=== PATIENT | female | born 1975 | race Caucasian/White ===

== ENCOUNTER 2020-01-30 14:20 | Emergency (ER) | payer BC, SELFPAY ==
--- NOTE | ~2020-01-30 | CT_ITS ---
EXAMINATION: CTA chest PE abdomen pel DATE: 01/30/2020 18:23 INDICATION: Chest tightness and swelling at the neck and back. Epigastric pain. TECHNIQUE: Computed tomography (CT) pulmonary angiogram of the chest was performed with 100 mL Omnipa que-350 intravenous contrast. Additional 3D reconstructions utilizing coronal maximum intensity proje ction (MIP) were performed. CT of the abdomen and pelvis was performed with intravenous contrast util izing the same contrast bolus following a short delay. Automated exposure control and iterative recon struction technique were employed. The dose-length product was 1584.70 mGy-cm. COMPARISON: CT abdomen and pelvis dated 10/17/2014 FINDINGS: Chest: Excellent contrast opacification of the pulmonary arteries. There is mild streak artifact from dense contrast in the superior vena cava and right atrium. Mild scattered respiratory motion artifact which does not significantly limit evaluation. No pulmonary embolism. Calcified nodule in the left lower l obe along with calcified left hilar and mediastinal lymph nodes consistent with old granulomatous dis ease. No pneumonia, pulmonary edema, pleural effusion or pneumothorax. Heart size is normal. No peric ardial effusion. Dual-lead cardiac pacemaker with lead tips at the right atrial appendage and near th e apex of the right ventricle. Thoracic aorta is normal in caliber with no dissection. No pathologica lly enlarged thoracic lymphadenopathy. There are multiple scattered sclerotic bone lesions the majori ty small and dense most likely representing bone islands with a larger sclerotic lesion at T1 with sp iculated margins also favoring bone island. Lucent centrally fat attenuation hemangioma at T4. Abdomen/pelvis: Gallbladder is surgically absent. Multiple small splenic calcifications consistent with old granuloma tous disease. Liver, pancreas, bilateral adrenal glands and kidneys are normal. No abnormal bowel wal l thickening or obstruction. Normal appendix. Bladder is normal. There appear to be 2 separate uterin e moieties without a fundal cleft most consistent with septated uterus. Partially 1 cm subtle enhanci ng fibroid at the left anterior side of the uterine body. There are couple low-attenuation likely cys ts/follicles in the left ovary. Again seen are couple likely tubal ligation clips 1 remains unchanged along the right broad ligament. The second previously left-sided clip has displaced in the interval now seen along side the RIGHT ovary. Bladder is normal. No free intraperitoneal gas or fluid. No path ologically enlarged abdominal or pelvic lymphadenopathy. No significant interval change in multiple s cattered small sclerotic likely bone islands. IMPRESSION: 1. No pulmonary embolism or other acute cardiopulmonary disease. 2. No acute intra-abdominal/pelvic process. 3. Fibroid and septated ureters with likely tubal ligation clips, the clip on the left which appears to have displaced since the prior study. 4. Sclerotic lesion at T1, likely a larger bone island with spiculated margins. If however there has been history of prior malignancy would consider bone scan for further evaluation. Reviewed, dictated and finalized at location A. IMPRESSION: 1. No pulmonary embolism or other acute cardiopulmonary disease. 2. No acute intra-abdominal/pelvic process. 3. Fibroid and septated ureters with likely tubal ligation clips, the clip on t he left which appears to have displaced since the prior study. 4. Sclerotic lesion at T1, likely a larger bone island with spiculated margins. If however there has been history of prior malignancy would consider bone scan for further evaluation.
--- NOTE | ~2020-01-30 | XR_ITS ---
EXAMINATION: XR chest 2V DATE: 01/30/2020 17:19 INDICATION: Dyspnea on exertion. Chest and back pain. Swelling of the extremities. TECHNIQUE: PA and lateral views of the chest were obtained. COMPARISON: None FINDINGS: Small lung volumes. Calcified nodule in the left lower lung zone consistent with old granulomatous di sease. No focal airspace opacities, pulmonary edema, pleural effusion or pneumothorax. The cardiomedi astinal silhouette is normal. Dual lead pacemaker seen with leads projecting over the expected locati ons of the right atrium and right ventricle. Mild to moderate thoracic and upper lumbar spondylosi s. IMPRESSION: 1. Small lung volumes without acute cardiopulmonary disease. Reviewed, dictated and finalized at location A.
[2020-01-30 14:22] VITALS: BP 142/92; PULSE 107; RESP 20; TEMP 36.4; O2SAT 97
[2020-01-30 16:04] VITALS: BP 135/94; PULSE 84; RESP 18; O2SAT 98
--- NOTE | 2020-01-30 16:48 | ECG_ITS ---
Measurements Intervals [place] Rate: 86 P: 43 HI: 161 QRS: 20 QRSD: 88 T: 12 QT: 374 QTc: 448 Interpretive Statements SINUS RHYTHM POSSIBLE LEFT ATRIAL ENLARGEMENT BORDERLINE T WAVE ABNORMALITY- INFERIOR LEADS BASELINE ARTIFACT- I, II, III, AVR, AVL, AVF, V1 BORDERLINE ECG Electronically Signed On 01-31-2020 7:07:09 CDT by Fred Mccrary D.O.
[2020-01-30 17:14] LABS: Basophils Absolute Auto 0.1 K/mm3 (0.0-0.1); Basophils Percent Auto 0.4 % (0.2-1.2); Eosinophils Absolute Auto 0.2 K/mm3 (0-0.3); Eosinophils Percent Auto 1.3 % (0-4.4); Hematocrit 42.7 % (37.0-47.0); Hemoglobin 14.1 g/dL (12.0-15.0); Immature Granulocyte Absolute 0.06 K/mm3 (0.00-0.031); Immature Granulocyte Percent A 0.5 % (0-0.5); Lymphocytes Absolute Auto 2.39 K/mm3 (0.9-3.2); Lymphocytes Percent Auto 18.7 % (18.3-44.2); Mean Corpuscular Hemoglobin 31.1 pg (26-34); Mean Corpuscular Volume 94.3 fl (80-100); Mean Platelet Volume 9.8 fl (7.4-10.4); Monocytes Absolute Auto 0.9 K/mm3 (0.1-0.6); Monocytes Percent Auto 7.4 % (2.6-8.5); Neutrophils Absolute Auto 9.2 K/mm3 (1.3-6.7); Neutrophils Percent Auto 71.7 % (45.5-73.1); Platelet Count Result 255 k/mm3 (150-375); Red Blood Count 4.53 M/mm3 (4.2-5.4); Red Cell Distribution Width 12.9 % (11.5-14.5); White Blood Count 12.8 K/mm3 (4.5-10.0)
[2020-01-30 17:16] LABS: Add Urine Microscopic? NO; Appearance Urine Clear (Clear); Bilirubin Urine Negative (Negative); Blood Urine Negative (Negative); Color Urine Yellow (Yellow); Glucose Urine UA Negative (Negative); Ketones Urine Negative (Negative); Leukocyte Esterase Ur Negative LEU/UL (Negative); Nitrate Urine Negative (Negative); Protein Urine Negative (Negative); Specific Grav Ur 1.018 (1.001-1.035); Urobilinogen Urine Negative mg/dL (<2.0)
[2020-01-30 17:18] LABS: Urine Pregnancy Test Negative
[2020-01-30 17:19] LABS: Pregnancy On Board Control Positive; Specific Gravity Ur 1.019 (1.010-1.035)
[2020-01-30] MEDS: SODIUM CHLORIDE 0.9% IV 1,000 ML 999 ML IV CONT (17:19)
[2020-01-30] MEDS: ONDANSETRON INJ 4 MG/2 ML VIAL IV PUSH (17:20)
[2020-01-30 17:21] LABS: INR 0.9; Prothrombin Time 11.6 Seconds (11.1-14.7)
[2020-01-30 17:22] LABS: Partial Thromboplastin Time 28.1 SECONDS (22.3-36.8)
[2020-01-30] MEDS: MORPHINE SULFATE 2 MG/ML INJ IV PUSH ×2 (17:22→18:35)
[2020-01-30 17:23] LABS: Alanine Aminotransferase 46 U/L (4-35); Albumin Level 4.2 g/dL (3.5-5.1); Alkaline Phosphatase 95 U/L (38-126); Aspartate Amino Transferase 36 U/L (14-36); Bilirubin,Total 0.4 mg/dL (0.2-1.3); Blood Urea Nitrogen 17 mg/dL (7-17); Carbon Dioxide 28 mmol/L (22-30); Chloride 100 mmol/L (98-107); Estimated CRCL calculation 88 ml/min; Estimated Glomerular Filt Rate > 60; Glucose 91 mg/dL (65-105); Lipase 72 U/L (23-300); Potassium 3.6 mmol/L (3.4-5.0); Sodium 136 mmol/L (137-145)
[2020-01-30 17:24] LABS: D Dimer 0.54 ug/mL (<0.48)
[2020-01-30 17:35] LABS: Troponin I < 0.012 ng/mL (0.000-0.034)
--- NOTE | 2020-01-30 18:07 | ED.GENADULT ---
HPI - General Adult General Chief complaint: Back Pain/Injury Stated complaint: back and head pain, swelling in neck. Time Seen by Provider: 01/30/20 15:29 History of Present Illness HPI narrative: Patient presents for evaluation of multiple complaints. She indicates she has experienced cold sweats and epigastric tightness for the last week. She is further experience right upper quadrant pain, right knee swelling and anterior neck swelling. She states 2 months ago she was seen a [facility] for fever, abdominal pain, back pain and neck pain. She was diagnosed with pneumonia. She was given a prescription for antibiotics and steroids and felt improvement in her symptoms. She subsequently experienced recurrence of her symptoms and was evaluated again at [facility]. She was given a second round of antibiotics and noted improvement in her symptoms thereafter. She indicates her current abdominal pain occurs multiple times per day, rated 9 on a scale of 1-10, worse with movement. She has experienced nausea without vomiting, dizziness, urinary frequency without other urinary complaints. Last menstrual period was 2 weeks ago. Surgical history positive for tubal ligation, cholecystectomy and pacemaker placement. Related Data Home Medications Medication Instructions Recorded Confirmed bupropion HCl 150 mg PO BID 01/30/20 duloxetine 60 mg PO DAILY 01/30/20 metoprolol tartrate 12.5 mg PO BID 01/30/20 Allergies Allergy/AdvReac Type Severity Reaction Status Date / Time Penicillins Allergy Intermediate Rash Verified 01/30/20 15:58 Review of Systems Review of Systems: Narrative: CONSTITUTIONAL: Denies fever, chills. Reports cold sweats EYES: Denies visual changes, redness, or discharge. ENT: Denies rhinorrhea, congestion, sore throat, or otalgia. Reports anterior neck swelling. CARDIOVASCULAR: Denies chest pain, palpitations, or edema. RESPIRATORY: Denies cough. Reports [place]AL[place] GASTROINTESTINAL: Reports abdominal pain and nausea. Denies vomiting, or diarrhea. GENITOURINARY: Denies dysuria or hematuria. Reports urinary frequency. SKIN: Denies rash or itching. MUSCULOSKELETAL: Denies back pain, joint pain, or myalgia. Reports swelling in the right knee NEUROLOGIC: Reports dizziness. Denies headache, numbness, or weakness. PSYCHIATRIC: Denies anxiety or depression. [facility] Past Medical History Medical History (Updated 01/30/20 @ 18:12 by Lexx Jefferson, [employer], ) Anxiety Hypertension Vasovagal syncope Surgical History Surgical History (Updated 01/30/20 @ 18:13 by Lexx Jefferson, [facility], ) History of cholecystectomy History of tubal ligation S/P placement of cardiac pacemaker Social History Social History (Updated 01/30/20 @ 18:13 by Lexx Jefferson [facility], ) Substance use: never Living arrangements: with family Gender identity (if verbalized by the patient): Female Exam Narrative: Exam Narrative: GENERAL: Well-appearing, well-nourished, and in no acute distress, but visibly uncomfortable HEAD: Normocephalic, atraumatic. EYES: PERRLA and EOMI. ENT: Nares clear, no rhinorrhea or epistaxis. Mucous membranes moist. Oropharynx without tonsillar hypertrophy exudate or other lesions. Bilateral TMs pearly patricia nonbulging NECK: Supple. No adenopathy or masses. No carotid bruits or JVD CHEST: Clear to auscultation. No respiratory distress. No wheezes rales or rhonchi HEART: Regular rate and rhythm. No murmur heard. Normal peripheral pulses. ABDOMEN: Soft, nondistended, normal active bowel sounds. Right upper quadrant and lower quadrant tenderness. Right CVA tenderness EXTREMITIES: Normal range of motion. No edema. SKIN: Warm, dry, no rash. NEURO: No focal deficits. Alert and oriented x3. PSYCH: Normal mood and affect. Course Vital Signs Vital signs: Vital Signs Temperature 36.4 C L 01/30/20 14:22 Pulse Rate 107 H 01/30/20 14:22 Respiratory Rate 20 01/30/20 14:22 Bloo
== END 2020-01-30 20:07 | disposition home or self-care (01) ==
PROVIDERS: Emergency Provider Nurse Practitioner; PCP Nurse Practitioner Family
DX: R10.11 Right upper quadrant pain (principal); M89.9 Disorder of bone, unspecified; F41.9 Anxiety disorder, unspecified; I10 Essential (primary) hypertension; Z95.0 Presence of cardiac pacemaker; R94.31 Abnormal electrocardiogram [ECG] [EKG]
CPT/HCPCS: 36415; 71046; 71275; 74177; 80053; 81003; 81025; 83690; 84484; 85025; 85380; 85610; 85730; 93005; 96361; 96374; 96375; 96376; 99284; J2270; J2405; J7030; Q9967

== ENCOUNTER 2020-02-18 14:38 | Emergency (ER) | payer BC, SELFPAY ==
--- NOTE | ~2020-02-18 | XR_ITS ---
XR foot LT min 3V DATE: 02/18/2020 14:54 INDICATION: Dorsal foot pain for 3 days. No known injury. TECHNIQUE: 4 views COMPARISON: None FINDINGS: Plantar and posterior calcaneal enthesopathy. There is hypertrophic osteoarthritic change at the tarsometatarsal joints, with dorsal spurring in pa rticular at the first tarsometatarsal joint. No fracture or dislocation, periosteal reaction or bone destruction. IMPRESSION: Plantar and posterior calcaneal enthesopathy Osteoarthritic changes at the tarsometatarsal joints, especially at the first Reviewed, dictated and finalized at location A.
[2020-02-18 14:41] VITALS: BP 153/98; PULSE 100; RESP 20; TEMP 36.6; O2SAT 100
--- NOTE | 2020-02-18 15:08 | ED.GENADULT ---
HPI - General Adult General Chief complaint: Extremity Injury, Lower Stated complaint: left foot pain Time Seen by Provider: 02/18/20 14:43 Source: patient Mode of arrival: ambulatory Limitations: no limitations History of Present Illness HPI narrative: Patient is a 44-year-old female who presents to emergency department for evaluation of pain to the dorsal surface of the left foot just proximal of the left great toe noting aching pain worse with activity and movement denies injury trauma or similar occurrence has not taken anything for her symptoms. Denies radicular symptoms or paresthesias Related Data Home Medications Medication Instructions Recorded Confirmed bupropion HCl 150 mg PO BID 01/30/20 02/18/20 duloxetine 60 mg PO DAILY 01/30/20 02/18/20 metoprolol tartrate 12.5 mg PO BID 01/30/20 02/18/20 cyclobenzaprine 5 mg PO DAILY 02/18/20 02/18/20 gabapentin 300 mg PO DAILY 02/18/20 02/18/20 hydrochlorothiazide 25 mg PO DAILY 02/18/20 02/18/20 loratadine 10 mg PO DAILY 02/18/20 02/18/20 omeprazole 40 mg PO DAILY 02/18/20 02/18/20 Allergies Allergy/AdvReac Type Severity Reaction Status Date / Time Penicillins Allergy Intermediate Rash Verified 02/18/20 14:42 Review of Systems Review of Systems: Narrative: CONSTITUTIONAL: Denies fever, chills, or sweats. SKIN: Denies bruising or swelling MUSCULOSKELETAL: Positive for left foot pain NEUROLOGIC: Denies numbness, or weakness. PMFSH Past Medical History Medical History Anxiety Bone island Hypertension Nausea RUQ pain Vasovagal syncope Surgical History Surgical History History of cholecystectomy History of tubal ligation S/P placement of cardiac pacemaker Social History Social History Substance use: never Gender identity (if verbalized by the patient): Female Exam Narrative: Exam Narrative: GENERAL: Well-appearing, well-nourished, and in no acute distress. HEAD: Normocephalic, atraumatic. EYES: PERRLA and EOMI. ENT: Nares clear, no rhinorrhea or epistaxis. Mucous membranes moist. EXTREMITIES: Normal range of motion. No edema. Tenderness over the left foot just proximal to the base of the left great toe no deformities noted remainder of foot and ankle nontender SKIN: Warm, dry, no rash. NEURO: No focal deficits. Alert and oriented x3. Neurovascularly intact. Capillary refill less than 2 seconds PSYCH: Normal mood and affect. Course Course Emergency Course: Patient in the room in no distress aware of case findings treatment plan and diagnosis agreeing to follow-up as directed or to return if symptoms worsen or concerns Vital Signs Vital signs: Vital Signs Temperature 98 F 02/18/20 14:41 Pulse Rate 100 02/18/20 14:41 Respiratory Rate 20 02/18/20 14:41 Blood Pressure 153/98 H 02/18/20 14:41 Pulse Oximetry 100 02/18/20 14:41 Temperature 98 F 02/18/20 14:41 Pulse Rate 100 02/18/20 14:41 Respiratory Rate 02/18/20 14:41 Blood Pressure 153/98 H 02/18/20 14:41 Pulse Oximetry 100 02/18/20 14:41 Medical Decision Making MDM Narrative Medical decision making narrative: Patients injury or pain is consistent with musculoskeletal etiology. No signs of neurological or vascular compromise on exam. Compartments and tisues are soft without signs of compartment syndrome. Pain is felt appropriate for further evaluation on an outpatient basis. Vital Signs Vital Signs: Vital Signs Temperature 98 F 02/18/20 14:41 Pulse Rate 100 02/18/20 14:41 Respiratory Rate 20 02/18/20 14:41 Blood Pressure 153/98 H 02/18/20 14:41 Pulse Oximetry 100 02/18/20 14:41 Temperature 98 F 02/18/20 14:41 Pulse Rate 100 02/18/20 14:41 Respiratory Rate 20 02/18/20 14:41 Blood Pressure 153/98 H 02/18/20 14:41 Pulse Oximetry 100 02/18/20 14:41
[2020-02-18] MEDS: KETOROLAC (*BKC) 60 MG/2 ML VIAL IM (15:27)
== END 2020-02-18 15:32 | disposition home or self-care (01) ==
PROVIDERS: Emergency Provider Emergency Medicine; PCP Nurse Practitioner Family
DX: M79.672 Pain in left foot (principal); F41.9 Anxiety disorder, unspecified; I10 Essential (primary) hypertension; Z95.0 Presence of cardiac pacemaker; M77.32 Calcaneal spur, left foot
CPT/HCPCS: 73630; 96372; 99283; J1885

== ENCOUNTER 2020-02-19 00:32 | Outpatient (CLI) | payer BC, SELFPAY ==
[2020-02-19 16:18] LABS: SARS-CoV-2 RNA PCR Negative
== END 2020-02-19 00:33 | disposition home or self-care (01) ==
PROVIDERS: PCP Nurse Practitioner Family; Visit Provider Internal Medicine Gastroenterology
DX: Z01.818 Encounter for other preprocedural examination (principal); Z11.59 Encounter for screening for other viral diseases
CPT/HCPCS: 87635; C9803; U0003

== ENCOUNTER 2020-02-22 00:46 | Day surgery (SDC) | payer BC, SELFPAY ==
[2020-02-22 11:05] VITALS: BP 146/101; PULSE 83; RESP 18; TEMP 36.2; O2SAT 100; BMI 30.9
[2020-02-22] MEDS: LACTATED RINGERS 1,000 ML 150 ML IV CONT (11:15)
--- NOTE | 2020-02-22 11:29 | WPDANESEPPF ---
Anes - Initial Pre Proc Eval Procedure: Operation Date: 02/22/20 12:15 Proposed Procedures p Esophagogastroduodenoscopy - Simeon Ellis MD Date/Time: 02/22/20 11:29 Surgeon: Simeon Ellis MD Pre Op Diagnosis: Abdominal Pain Patient Data Age: 44 Gender: F Height: 5 ft 11 in Weight: 100.4 kg Last Vital Signs Temp 36.2 C L 02/22/20 11:05 Pulse 83 02/22/20 11:05 Resp 18 02/22/20 11:05 BP 146/101 H 02/22/20 11:05 Pulse Ox 100 02/22/20 11:05 Allergies Allergy/AdvReac Type Severity Reaction Status Date / Time Penicillins Allergy Intermediate Rash Verified 02/22/20 11:03 Home Medications Medication Instructions Recorded Confirmed Type bupropion HCl 150 mg PO BID 01/30/20 02/22/20 History duloxetine 60 mg PO DAILY 01/30/20 02/22/20 History metoprolol tartrate 12.5 mg PO BID 01/30/20 02/22/20 History cyclobenzaprine 5 mg PO DAILY 02/18/20 02/22/20 History gabapentin 300 mg PO DAILY 02/18/20 02/22/20 History hydrochlorothiazide 25 mg PO DAILY 02/18/20 02/22/20 History ibuprofen 600 mg PO TID PRN #10 tablet 02/18/20 02/22/20 Rx loratadine 10 mg PO DAILY 02/18/20 02/22/20 History omeprazole 40 mg PO DAILY 02/18/20 02/22/20 History Patient hx anesthesia problems: none Family hx anesthesia problems: none PMFSH Past Medical History Medical History Anxiety Bone island Hypertension Nausea RUQ pain Vasovagal syncope Surgical History Surgical History History of cholecystectomy History of tubal ligation S/P placement of cardiac pacemaker Social History Social History Substance use: never Gender identity (if verbalized by the patient): Female Anes - Eval Final PreProcedure Day of Procedure 02/22/20 11:29 Patient weight: obese Heart: regular rate and rhythm Lungs: clear to auscultation Airway: Mallampati scale class II Neurological: alert and oriented Last oral intake: >/= 8 hours ASA classification: III Emergent: no Anesthetic plan: proceed Anesthesia type and monitoring: general GIVS and standard monitoring Informed Consent: The patient's anesthetic plan and its attendant risks and benefits were discussed with the patient/family/POA. Questions were solicited and answers provided to the satisfaction of the patient/family/POA.
--- NOTE | 2020-02-22 11:56 | WPDHPUPDATE1 ---
History and Physical Update Update Date/Time: 02/22/20 11:56 History and Physical has been reviewed, including an updated exam of the patient. There are NO changes in the patient's condition. Risks, benefits, and alternatives have been discussed and questions answered. Patient agrees to proceed with procedure.
[2020-02-22 12:10] VITALS: BP 139/90; PULSE 86; RESP 25; O2SAT 96
[2020-02-22 12:20] VITALS: BP 120/69; PULSE 76; RESP 22; O2SAT 100
[2020-02-22 12:30] VITALS: BP 144/90; RESP 71; O2SAT 100
== END 2020-02-22 13:13 | disposition home or self-care (01) ==
PROVIDERS: PCP Nurse Practitioner Family; Visit Provider Internal Medicine Gastroenterology
PROC: 0DJ08ZZ Inspection of Upper Intestinal Tract, Via Natural or Artificial Opening Endoscopic (ICD-10-PCS; CPT 43235; principal; 2020-02-22 12:15)
DX: R10.11 Right upper quadrant pain (principal); I10 Essential (primary) hypertension; F41.9 Anxiety disorder, unspecified; Z95.0 Presence of cardiac pacemaker; E66.9 Obesity, unspecified; Z68.30 Body mass index [BMI] 30.0-30.9, adult
CPT/HCPCS: 43239; 88305; J2001; J2704; J7120

== ENCOUNTER → 2020-06-16 10:31 | Outpatient (CLI) | payer BC, SELFPAY ==
--- NOTE | ~2020-06-16 | US_ITS ---
EXAMINATION: US retroperitoneal comp DATE: 06/16/2020 11:01 INDICATION: Right hydronephrosis TECHNIQUE: Multiple ultrasound grayscale images of the kidneys were obtained. COMPARISON: CT dated 01/30/2020 FINDINGS: The right kidney measures 10.3 x 5.7 x 5.5 cm. The left kidney measures 9.9 x 4.5 x 4.2 cm. The kidne ys demonstrate normal echogenicity. There is no hydronephrosis in either kidney. No stones identifi ed. The bladder is normal with bilateral ureteral jets visualized on color Doppler. IMPRESSION: 1. Mild right hydronephrosis of indeterminate etiology with no evident shadowing renal stones and wi th right-sided ureteral jet in the bladder on color Doppler. Reviewed, dictated and finalized at location B. IMPRESSION: 1. Mild right hydronephrosis of indeterminate etiology with no evident shadowi ng renal stones and with right-sided ureteral jet in the bladder on color Doppl er.
== END ==
PROVIDERS: PCP Nurse Practitioner Family; Visit Provider Nurse Practitioner Adult Health
DX: N13.30 Unspecified hydronephrosis (principal)
CPT/HCPCS: 76770

== ENCOUNTER 2021-03-22 23:22 | Emergency (ER) | payer BC, SELFPAY ==
--- NOTE | ~2021-03-22 | CT_ITS ---
EXAMINATION: CTA chest PE protocol EXAM DATE: 03/23/2021 04:08 INDICATION: Cough and shortness of breath. TECHNIQUE: Spiral CTA of the chest (pulmonary arteries) was performed with 100 cc Omnipaque 350 intr avenous contrast injection. Images were acquired during the pulmonary arterial phase. Coronal maxi mum intensity projection 3D-reconstructions were created by the technologist on dedicated workstation . Axial, coronal and sagittal reformatted images were reviewed. The dose-length product (DLP) for t his examination was 661.84 mGy-cm. The exposure was tailored according to patient size (auto mA exp osure control), and iterative reconstruction (ASIR) was used as additional dose reduction technique. Comparison is made to prior examination from 01/30/2020. FINDINGS: Pulmonary arteries are well opacified and without intraluminal filling defects. Left-sided pacemaker/AICD device. No thoracic aortic dissection. The lungs are clear. There are no pleural or pericardial effusions. Tracheobronchial tree is patent. There is no mediastinal, hilar or axil fran lymphadenopathy. There is no pneumothorax. Heart normal in size. No evidence of coronary a rterial calcification. There is hepatic steatosis. Sclerotic 9 mm region T1 vertebral body with hailey e thickened trabeculation is unchanged, most likely bone island or hemangioma. Sizable bridging mid thoracic endplate osteophytes. IMPRESSION: 1. No pulmonary emboli or acute cardiopulmonary findings. 2. Hepatic steatosis. Reviewed, dictated and finalized at location A.
--- NOTE | ~2021-03-22 | XR_ITS ---
EXAMINATION: XR chest 1V portable EXAM DATE: 03/23/2021 03:20 INDICATION: Shortness of breath, cough. TECHNIQUE: Frontal and lateral projections of the chest obtained and reviewed. Comparison is made to prior examination from 01/30/2020. FINDINGS: There is a dual lead pacemaker/AICD seen with leads projecting over the expected locations of the right atrial appendage and right ventricle. Left basilar granuloma. The lungs are otherwise c lear. There are no pleural effusions. Cardiac silhouette is prominent but magnified on this AP tech nique. There is no pneumothorax suspected. The bones and soft tissues are unremarkable. IMPRESSION: No acute cardiopulmonary findings. Reviewed, dictated and finalized at location A.
[2021-03-22 23:36] VITALS: BP 158/107; PULSE 102; RESP 16; TEMP 37.3; O2SAT 98
[2021-03-23] VITALS (17 sets, daily range): BP systolic 112–182; BP diastolic 80–114; PULSE 77–100; RESP 14–23; TEMP 36.6–36.9; O2SAT 94–100
--- NOTE | 2021-03-23 02:45 | ECG_ITS ---
Measurements Intervals [place] Rate: 82 P: 53 [place]: 176 QRS: 10 QRSD: 93 T: 21 QT: 400 QTc: 469 Interpretive Statements SINUS RHYTHM POSSIBLE LEFT ATRIAL ENLARGEMENT CONSIDER INFERIOR INFARCT, AGE INDETERMINATE BASELINE ARTIFACT- I, II, III, AVR, AVL, AVF, V1, V3-V6 ABNORMAL ECG Electronically Signed On 03-23-2021 6:18:15 CDT by Fred Mccrary D.O.
--- NOTE | 2021-03-23 02:46 | ED.URI ---
HPI - URI/Sore Throat General Chief Complaint: Upper Respiratory Infection Stated Complaint: cough/ nasal drainage Time Seen by Provider: 03/23/21 01:52 Source: patient Mode of arrival: ambulatory Limitations: no limitations History of Present Illness HPI Narrative: This is 46 year old female who presents for evaluation of URI symptoms. PAtient states last night she developed runny nose, nasal congestion, sore throat, drainage, fever. She also reports nausea and vomiting x 3 today. She reports epigastric abdominal pain but she thinks that is due to her sinus drainage. She states she had a fever last night of 101. She took zyrtec without improvement so she came to ER. She also reports body ache. She reports mild sob and wheezing but she denies chest pain. She denies known sick contacts. 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 Related Data Home Medications Medication Instructions Recorded Confirmed bupropion HCl 150 mg PO BID 01/30/20 02/22/20 duloxetine 60 mg PO DAILY 01/30/20 02/22/20 metoprolol tartrate 12.5 mg PO BID 01/30/20 02/22/20 cyclobenzaprine 5 mg PO DAILY 02/18/20 02/22/20 gabapentin 300 mg PO DAILY 02/18/20 02/22/20 hydrochlorothiazide 25 mg PO DAILY 02/18/20 02/22/20 loratadine 10 mg PO DAILY 02/18/20 02/22/20 omeprazole 40 mg PO DAILY 02/18/20 02/22/20 Allergies Allergy/AdvReac Type Severity Reaction Status Date / Time Penicillins Allergy Intermediate Rash Verified 02/22/20 11:03 Review of Systems Review of Systems: All systems reviewed & are unremarkable except as noted in HPI and below Constitutional: Constitutional: Reports chills and Reports fever(s) ENT: Reports nasal congestion and Reports sore throat Cardiovascular: Cardiovascular: Denies chest pain Respiratory: Respiratory: Reports cough and Reports dyspnea Gastrointestinal: Gastrointestinal: Reports abdominal pain, Reports nausea and Reports vomiting PMFSH Past Medical History Medical History (Updated 03/23/21 @ 05:02 by Ana Maria Saenz MD) Anxiety Bone island Hypertension Lupus Nausea RUQ pain Vasovagal syncope Surgical History Surgical History History of cholecystectomy History of tubal ligation S/P placement of cardiac pacemaker Social History Social History Substance use: never Gender identity (if verbalized by the patient): Female Exam Const: General: no acute distress and alert Orientation/consciousness: patient oriented x3 HENMT: Face and sinus: face symmetric Mouth: Yes Normal oral and palatal mucosa present, Yes lip normal, Yes tongue normal, Yes oropharynx normal and Yes moist mucous membranes Eyes: EOM: EOMs intact bilaterally Resp: Effort & Inspection: normal respiratory effort and no retractions Auscultation: clear to auscultation bilaterally Cardio: Rate: regular rate Rhythm: regular rhythm Heart sounds: no murmurs GI: GI Palp: Yes Soft to palpation, Yes Tenderness to palpation present (GI) (epigastric) and No Guarding due to palpation present (GI) Auscultation: normal bowel sounds Skin: General skin exam: normal color Rashes: no rashes Neuro: General: patient oriented x3, moves all extremities and CN's II-XI intact bilaterally Psych: Mental Status: mental status grossly normal Affect: normal affect Course Reevaluation(s) Reevaluation #1: I Discussed with patient labs and CT scan. She is likely suffering from viral syndrome. Date: 03/23/21 Time: 04:59 Vital Signs Vital signs: Vital Signs Temperature 99.2 F 03/22/21 23:36 Pulse Rate 102 H 03/22/21 23:36 Respiratory Rate 16 03/22/21 23:36 Blood Pressure 158/107 H 03/22/21 23:36 Pulse Oximetry 98 03/22/21 23:36 Temperature 97.8 F 03/23/21 03:56 Pulse Rate 80 03/23/21 05:54 Respiratory Rate 18 03/23/21 05:54 Blood Pressure 112/88 03/23/21 05:54 Puls
[2021-03-23] MEDS: ALBUTEROL SULFATE (*SP) AEROSOL 1 PUFF 2 PUFF INHALATION (03:01)
[2021-03-23] MEDS: ONDANSETRON INJ 4 MG/2 ML VIAL IV PUSH (03:08)
[2021-03-23 03:12] LABS: Basophils Percent Auto 0.3 % (0.2-1.2); Eosinophils Absolute Auto 0.2 K/mm3 (0-0.3); Eosinophils Percent Auto 2.1 % (0-4.4); Hematocrit 36.9 % (37.0-47.0); Immature Granulocyte Absolute 0.02 K/mm3 (0.00-0.031); Immature Granulocyte Percent A 0.3 % (0-0.5); Lymphocytes Absolute Auto 1.54 K/mm3 (0.9-3.2); Lymphocytes Percent Auto 20.2 % (18.3-44.2); Mean Corpuscular HGB Conc 32.5 g/dl (32-36); Mean Corpuscular Hemoglobin 29.6 pg (26-34); Mean Corpuscular Volume 90.9 fl (80-100); Mean Platelet Volume 9.6 fl (7.4-10.4); Monocytes Absolute Auto 0.9 K/mm3 (0.1-0.6); Monocytes Percent Auto 11.6 % (2.6-8.5); Neutrophils Percent Auto 65.5 % (45.5-73.1); Platelet Count Result 224 k/mm3 (150-375); Red Blood Count 4.06 M/mm3 (4.2-5.4); Red Cell Distribution Width 12.6 % (11.5-14.5); White Blood Count 7.6 K/mm3 (4.5-10.0)
[2021-03-23 03:24] LABS: Alanine Aminotransferase 35 U/L (4-35); Alkaline Phosphatase 102 U/L (38-126); Anion Gap 9 mmol/L (8-16); Aspartate Amino Transferase 29 U/L (14-36); Bilirubin,Total 0.4 mg/dL (0.2-1.3); Blood Urea Nitrogen 11 mg/dL (7-17); Calcium 8.7 mg/dL (8.4-10.2); Carbon Dioxide 25 mmol/L (22-30); Chloride 103 mmol/L (98-107); Estimated CRCL calculation 88 ml/min; Estimated Glomerular Filt Rate > 60; Glucose 117 mg/dL (65-105); Lipase 43 U/L (23-300); Potassium 3.4 mmol/L (3.4-5.0); Sodium 137 mmol/L (137-145)
[2021-03-23 03:29] LABS: D Dimer 0.62 ug/mL (<0.48)
[2021-03-23 19:50] LABS: SARS-CoV-2 RNA PCR Negative
== END 2021-03-23 05:32 | disposition home or self-care (01) ==
PROVIDERS: Emergency Provider General Practice; PCP Nurse Practitioner Family
DX: B34.9 Viral infection, unspecified (principal); Z20.822 Contact with and (suspected) exposure to COVID-19; F41.9 Anxiety disorder, unspecified; I10 Essential (primary) hypertension; Z95.0 Presence of cardiac pacemaker
CPT/HCPCS: 36415; 71045; 71275; 80053; 81025; 83690; 85025; 85380; 86140; 87081; 87804; 87880; 93005; 96374; 99284; A9270; C9803; J2405; Q9967; U0003; U0005

== ENCOUNTER 2021-10-21 14:36 | Emergency (ER) | payer OTHER, SELFPAY ==
--- NOTE | ~2021-10-21 | US_ITS ---
EXAMINATION: US pelvic complete w TV DATE: 10/21/2021 17:40 INDICATION: Heavy vaginal bleeding, history of tubal ligation TECHNIQUE: Multiple transabdominal and endovaginal sonographic images of the pelvis were obtained. COMPARISON: None. FINDINGS: The uterus measures 10.8 x 4.9 x 8.0 cm. The endometrial complex measures 7 mm. A 1 cm hypo echoic area of the posterior uterine body has the appearance of an intramural fibroid. Nabothian cyst s are noted in the cervix. The right ovary measures 3.2 x 1.7 x 1.7 cm. The left ovary measures 3.6 x 1.9 x 1.9 cm. There is normal vascular flow in the ovaries. There is no free fluid in the pelvis. IMPRESSION: 1. No sonographic correlate for the patient's symptoms. Reviewed, dictated and finalized at location [facility] [employer]
[2021-10-21 14:58] VITALS: BP 182/100; PULSE 95; RESP 18; TEMP 36.9; O2SAT 100
--- NOTE | 2021-10-21 16:08 | ED.FEMALEGU ---
HPI - Female Genitourinary General Chief complaint: Vaginal Bleeding Stated complaint: vaginal bleeding Time Seen by Provider: 10/21/21 16:06 Source: patient Mode of arrival: ambulatory Limitations: no limitations History of Present Illness HPI Narrative: Patient is a 46-year-old female complaining of vaginal bleeding accompanied by pelvic cramping x2 months. Patient states that she saw her [employer]RA[employer]URE TECH for this complaint and was placed on oral contraceptive pills. Patient states that the past few days she has noticed clots. Patient states that she has had bilateral tubal ligation and there is no possibility that she is . Patient denies any chest pain, shortness of breath, back pain, GI bleeding, fever or chills. Related Data Home Medications Medication Instructions Recorded Confirmed bupropion HCl 150 mg PO BID 01/30/20 02/22/20 duloxetine 60 mg PO DAILY 01/30/20 02/22/20 metoprolol tartrate 12.5 mg PO BID 01/30/20 02/22/20 cyclobenzaprine 5 mg PO DAILY 02/18/20 02/22/20 gabapentin 300 mg PO DAILY 02/18/20 02/22/20 hydrochlorothiazide 25 mg PO DAILY 02/18/20 02/22/20 loratadine 10 mg PO DAILY 02/18/20 02/22/20 omeprazole 40 mg PO DAILY 02/18/20 02/22/20 Allergies Allergy/AdvReac Type Severity Reaction Status Date / Time Penicillins Allergy Intermediate Rash Verified 10/21/21 16:07 Review of Systems Review of Systems: All systems reviewed & are unremarkable except as noted in HPI and below Constitutional: Constitutional: Denies body ache(s), Denies chills, Denies excessive sweating, Denies fatigue, Denies fever(s), Denies headache(s), Denies lethargy, Denies malaise, Denies weakness and Denies weight loss Eyes: Eyes: Denies blurry vision, Denies change in vision and Denies loss of vision ENT: Denies dizziness, Denies ear discharge, Denies headache(s), Denies lip swelling, Denies epistaxis, Denies nasal congestion, Denies neck pain, Denies throat swelling and Denies tongue swelling Cardiovascular: Cardiovascular: Denies chest pain, Denies chest pain at rest, Denies chest pain with activity, Denies diaphoresis, Denies rapid heart rate, Denies edema, Denies irregular heart rhythm, Denies lightheadedness, Denies palpitations, Denies dyspnea and Denies dyspnea on exertion Respiratory: Respiratory: Denies chest congestion, Denies cough, Denies hemoptysis, Denies dyspnea and Denies dyspnea on exertion Gastrointestinal: Gastrointestinal: Denies abdominal pain, Denies melena, Denies hematochezia, Denies diarrhea, Denies nausea, Denies vomiting and Denies hematemesis Musculoskeletal: Musculoskeletal: Denies abnormal gait, Denies deformity, Denies joint swelling, Denies limited range of motion, Denies neck pain and Denies numbness Neurologic: Denies Abnormal speech present, Denies abnormal gait, Denies confusion, Denies dizziness, Denies headache(s), Denies focal weakness, Denies loss of vision, Denies numbness, Denies Other visual disturbances, Denies Sensory deficit (Neuro) and Denies weakness Psychiatric: Psychiatric: Denies confusion, Denies depression, Denies auditory hallucinations, Denies homicidal ideation and Denies suicidal ideation Endocrine: Endocrine: Denies cold intolerance, Denies excessive sweating, Denies fatigue, Denies heat intolerance and Denies palpitations Hematologic/Lymphatic: Hematologic/Lymphatic: Denies easy bleeding and Denies easy bruising Allergic/Immunologic: Allergic/Immunologic: Denies lip swelling, Denies throat swelling and Denies tongue swelling PMFSH Past Medical History Medical History Anxiety [place] Hypertension Lupus Nausea RUQ pain Vasovagal syncope Surgical History Surgical History History of cholecystectomy History of tubal ligation S/P placement of cardiac pacemaker Social History Social History Substance use:
[2021-10-21] MEDS: SODIUM CHLORIDE 0.9% IV 1,000 ML 999 ML IV CONT (16:27)
--- NOTE | 2021-10-21 16:28 | PC.NURSE ---
pt attempted to give urine sample, but was unable at this time. pt declining straight catheter. pt will try again after fluids.
[2021-10-21 16:41] LABS: Basophils Percent Auto 0.3 % (0.2-1.2); Eosinophils Absolute Auto 0.2 K/mm3 (0-0.3); Eosinophils Percent Auto 1.7 % (0-4.4); Hematocrit 40.4 % (37.0-47.0); Hemoglobin 13.4 g/dL (12.0-15.0); Immature Granulocyte Absolute 0.03 K/mm3 (0.00-0.031); Immature Granulocyte Percent A 0.3 % (0-0.5); Lymphocytes Absolute Auto 2.14 K/mm3 (0.9-3.2); Lymphocytes Percent Auto 20.6 % (18.3-44.2); Mean Corpuscular HGB Conc 33.2 g/dl (32-36); Mean Corpuscular Hemoglobin 29.6 pg (26-34); Mean Corpuscular Volume 89.2 fl (80-100); Mean Platelet Volume 9.9 fl (7.4-10.4); Monocytes Absolute Auto 0.8 K/mm3 (0.1-0.6); Monocytes Percent Auto 7.7 % (2.6-8.5); Neutrophils Absolute Auto 7.2 K/mm3 (1.3-6.7); Neutrophils Percent Auto 69.4 % (45.5-73.1); Platelet Count Result 300 k/mm3 (150-375); Red Blood Count 4.53 M/mm3 (4.2-5.4); Red Cell Distribution Width 13.5 % (11.5-14.5); White Blood Count 10.4 K/mm3 (4.5-10.0)
[2021-10-21 16:51] LABS: Alanine Aminotransferase 42 U/L (4-35); Albumin Level 4.5 g/dL (3.5-5.1); Alkaline Phosphatase 104 U/L (38-126); Anion Gap 13 mmol/L (8-16); Aspartate Amino Transferase 32 U/L (14-36); Bilirubin,Total 0.4 mg/dL (0.2-1.3); Blood Urea Nitrogen 12 mg/dL (7-17); Calcium 8.9 mg/dL (8.4-10.2); Carbon Dioxide 22 mmol/L (22-30); Chloride 106 mmol/L (98-107); Estimated CRCL calculation 80 ml/min; Estimated Glomerular Filt Rate 59; Glucose 101 mg/dL (65-110); Potassium 2.9 mmol/L (3.4-5.0); Sodium 141 mmol/L (137-145)
[2021-10-21 16:57] LABS: Prothrombin Time 13.3 Seconds (11.1-14.7)
[2021-10-21 18:56] LABS: Add Urine Microscopic? YES; Appearance Urine Cloudy (Clear); Bilirubin Urine Negative (Negative); Blood Urine 3+ (Negative); Color Urine Yellow (Yellow); Glucose Urine UA Negative (Negative); Ketones Urine Negative (Negative); Leukocyte Esterase Ur 2+ LEU/UL (Negative); Mucus Urine Rare /lpf; Nitrate Urine Negative (Negative); Protein Urine 1+ mg/dL (Negative); RBC Urine >75 /hpf (0-2); Specific Grav Ur 1.015 (1.001-1.035); Squamous Epithelial Cell Urine Moderate /hpf (Few); Urobilinogen Urine Negative mg/dL (<2.0); WBC Urine 21-30 /hpf
[2021-10-21] MEDS: POTASSIUM CHLORIDE 20 MEQ PACKET (FOR LIQUID) 40 MEQ PO (19:13)
[2021-10-21 19:19] VITALS: BP 193/111; PULSE 89; RESP 18; O2SAT 100
== END 2021-10-21 19:19 | disposition home or self-care (01) ==
PROVIDERS: Emergency Provider Emergency Medicine; PCP Nurse Practitioner Family
DX: N93.8 Other specified abnormal uterine and vaginal bleeding (principal); E87.6 Hypokalemia; I10 Essential (primary) hypertension; F41.9 Anxiety disorder, unspecified; Z95.0 Presence of cardiac pacemaker; R82.998 Other abnormal findings in urine
CPT/HCPCS: 36415; 76830; 76856; 80053; 81001; 81025; 85025; 85610; 85730; 87086; 87088; 96360; 99284; A9270; J7030

== ENCOUNTER 2022-03-29 12:57 | Emergency (ER) | payer OTHER, SELFPAY ==
[2022-03-29 13:06] VITALS: BP 134/95; PULSE 58; RESP 18; TEMP 36.5; O2SAT 100
[2022-03-29 13:51] LABS: Basophils Percent Auto 0.4 % (0.2-1.2); Eosinophils Absolute Auto 0.2 K/mm3 (0-0.3); Eosinophils Percent Auto 1.8 % (0-4.4); Hematocrit 39.7 % (37.0-47.0); Immature Granulocyte Absolute 0.03 K/mm3 (0.00-0.031); Immature Granulocyte Percent A 0.3 % (0-0.5); Lymphocytes Absolute Auto 3.23 K/mm3 (0.9-3.2); Lymphocytes Percent Auto 32.3 % (18.3-44.2); Mean Corpuscular HGB Conc 32.7 g/dl (32-36); Mean Corpuscular Hemoglobin 28.1 pg (26-34); Mean Corpuscular Volume 85.7 fl (80-100); Mean Platelet Volume 9.6 fl (7.4-10.4); Monocytes Absolute Auto 0.8 K/mm3 (0.1-0.6); Monocytes Percent Auto 7.8 % (2.6-8.5); Neutrophils Absolute Auto 5.8 K/mm3 (1.3-6.7); Neutrophils Percent Auto 57.4 % (45.5-73.1); Platelet Count Result 236 k/mm3 (150-375); Red Blood Count 4.63 M/mm3 (4.2-5.4); Red Cell Distribution Width 15.2 % (11.5-14.5)
[2022-03-29 14:02] LABS: Alanine Aminotransferase 37 U/L (6-35); Albumin Level 4.3 g/dL (3.5-5.1); Alkaline Phosphatase 114 U/L (38-126); Anion Gap 6 mmol/L (8-16); Aspartate Amino Transferase 35 U/L (14-36); Bilirubin,Total 0.3 mg/dL (0.2-1.3); Blood Urea Nitrogen 17 mg/dL (7-17); Calcium 8.5 mg/dL (8.4-10.2); Carbon Dioxide 26 mmol/L (22-30); Chloride 105 mmol/L (98-107); Estimated CRCL calculation 72 ml/min; Estimated Glomerular Filt Rate 53; Glucose 88 mg/dL (65-110); Potassium 4.1 mmol/L (3.4-5.0); Sodium 137 mmol/L (137-145)
[2022-03-29 14:24] LABS: Bacteria Urine Trace /hpf; Mucus Urine Rare /lpf; RBC Urine 0-2 /hpf (0-2); Squamous Epithelial Cell Urine Many /hpf (Few); WBC Urine 0-3 /hpf
[2022-03-29 14:26] LABS: Add Urine Microscopic? YES; Appearance Urine Cloudy (Clear); Bilirubin Urine Negative (Negative); Blood Urine Negative (Negative); Color Urine Yellow (Yellow); Glucose Urine UA Negative (Negative); Ketones Urine Negative (Negative); Leukocyte Esterase Ur 1+ LEU/UL (Negative); Nitrate Urine Negative (Negative); Protein Urine 1+ mg/dL (Negative); Urobilinogen Urine 0.2 mg/dL (<2.0); pH Urine 7.5 (5.0-9.0)
[2022-03-29 14:42] LABS: Influenza A QL RT-PCR Negative (Negative); Influenza B QL RT-PCR Negative (Negative); SARS-CoV-2 RNA PCR Negative
[2022-03-29] MEDS: KETOROLAC 30 MG/ML VIAL (*BKC) IV PUSH (16:26)
--- NOTE | 2022-03-29 17:26 | ED.BACK ---
HPI - Back Pain/Injury General Chief Complaint: Back Pain/Injury Stated Complaint: low back pain Time Seen by Provider: 03/29/22 13:40 History of Present Illness HPI Narrative: Patient is a 47-year-old female who presents ER with low back pain. Worsening over the last 2 days. Worse with bending and twisting. Patient reports she has been having additional body aches as well as subjective sweats and chills over the same time. Mild runny nose no cough or difficulty breathing. No known sick contacts. She is tried no medications for her discomfort. No urinary frequency urgency or dysuria. Patient denies saddle anesthesia or lower extremity numbness/tingling. No difficulty with urination/defecation. Related Data Home Medications Medication Instructions Recorded Confirmed bupropion HCl 150 mg tablet,12 hr 150 mg PO BID 01/30/20 02/22/20 sustained-release duloxetine 60 mg capsule,delayed 60 mg PO DAILY 01/30/20 02/22/20 release metoprolol tartrate 25 mg tablet 12.5 mg PO BID 01/30/20 02/22/20 cyclobenzaprine 5 mg tablet 5 mg PO DAILY 02/18/20 02/22/20 gabapentin 300 mg capsule 300 mg PO DAILY 02/18/20 02/22/20 hydrochlorothiazide 25 mg tablet 25 mg PO DAILY 02/18/20 02/22/20 loratadine 10 mg tablet 10 mg PO DAILY 02/18/20 02/22/20 omeprazole 40 mg capsule,delayed 40 mg PO DAILY 02/18/20 02/22/20 release Allergies Allergy/AdvReac Type Severity Reaction Status Date / Time Penicillins Allergy Intermediate Rash Verified 10/21/21 16:07 Review of Systems Review of Systems: All systems reviewed & are unremarkable except as noted in HPI and below Constitutional: Constitutional: Reports chills and Reports fever(s) (Subjective, none documented) ENT: Denies nasal congestion and Denies sore throat Respiratory: Respiratory: Denies cough, Denies dyspnea and Denies wheezing Gastrointestinal: Gastrointestinal: Denies abdominal pain, Denies nausea and Denies vomiting Musculoskeletal: Musculoskeletal: Reports back pain, Reports myalgias, Denies arthralgias and Denies joint swelling Neurologic: Denies focal weakness and Denies numbness PMFSH Past Medical History Medical History Anxiety [place] Hypertension Lupus Nausea RUQ pain Vasovagal syncope Surgical History Surgical History History of cholecystectomy History of tubal ligation S/P placement of cardiac pacemaker Social History Social History Substance use: never Gender identity (if verbalized by the patient): Female Exam Narrative: GENERAL: Well-appearing, well-nourished, and in no acute distress. HEAD: Normocephalic, atraumatic. EYES: PERRL and EOMI. NECK: Supple. CHEST: Clear to auscultation. No respiratory distress. HEART: Regular rate and rhythm. Normal peripheral pulses. Back: Mild paraspinal muscular discomfort in the low lumbar region without point tenderness in the midline lumbar/thoracic spine. No rash noted. EXTREMITIES: Normal range of motion. No edema. SKIN: Warm, dry, no rash. NEURO: Alert and oriented x3. PSYCH: Normal mood and affect. Course Course Emergency Course: Patient resting comfortably. Symptoms resolved with Toradol. Discharge home. Vital Signs Vital signs: Vital Signs Temperature 97.7 F 03/29/22 13:06 Pulse Rate 58 L 03/29/22 13:06 Respiratory Rate 18 03/29/22 13:06 Blood Pressure 134/95 H 03/29/22 13:06 Pulse Oximetry 100 03/29/22 13:06 Oxygen Delivery Room Air 03/29/22 13:06 Temperature 97.7 F 03/29/22 13:06 Pulse Rate 58 L 03/29/22 13:06 Respiratory Rate 18 03/29/22 18:04 Blood Pressure 134/95 H 03/29/22 13:06 Pulse Oximetry 98 03/29/22 18:04 Oxygen Delivery Room Air 03/29/22 13:06 MDM - Back Pain/Injury Lab Data Result diagrams: 03/29/22 13:24 03/29/22 13:24 [place]
[2022-03-29 18:04] VITALS: RESP 18; O2SAT 98
== END 2022-03-29 18:05 | disposition home or self-care (01) ==
PROVIDERS: Emergency Medicine; Emergency Provider Emergency Medicine; PCP Nurse Practitioner Family
DX: M54.50 Low back pain, unspecified (principal); Z20.822 Contact with and (suspected) exposure to COVID-19; I10 Essential (primary) hypertension; F41.9 Anxiety disorder, unspecified; Z95.0 Presence of cardiac pacemaker
CPT/HCPCS: 36415; 80053; 81001; 81025; 85025; 87502; 96374; 99284; C9803; J1885; U0003; U0005

== ENCOUNTER 2022-10-04 00:16 | Day surgery (SDC) | payer BC, SELFPAY ==
[2022-09-26 11:59] VITALS: BMI 30.7
[2022-10-04] MEDS: LACTATED RINGERS 1,000 ML 150 ML IV CONT (07:25)
[2022-10-04 07:26] VITALS: BP 166/97; PULSE 106; RESP 20; TEMP 36.5; O2SAT 100
--- NOTE | 2022-10-04 08:09 | WPDANESEPPF ---
Anes - Initial Pre Proc Eval Procedure: Operation Date: 10/04/22 08:30 Proposed Procedures p Screening Colonoscopy - Simeon Ellis MD Date/Time: 10/04/22 08:09 Surgeon: Simeon Ellis MD Pre Op Diagnosis: neoplasm screening Patient Data Age: 47 Gender: F Height: 1.8 m Weight: 95.5 kg Last Vital Signs Temp 36.5 C 10/04/22 07:26 Pulse 106 H 10/04/22 07:26 Resp 20 10/04/22 07:26 BP 166/97 H 10/04/22 07:26 Pulse Ox 100 10/04/22 07:26 O2 Del Method Room Air 10/04/22 07:26 Allergies Allergy/AdvReac Type Severity Reaction Status Date / Time Penicillins Allergy Intermediate Hives Verified 09/26/22 11:56 Home Medications Medication Instructions Recorded Confirmed Type bupropion HCl 150 mg tablet,12 hr 150 mg PO BID 01/30/20 09/26/22 History sustained-release duloxetine 60 mg capsule,delayed 60 mg PO DAILY 01/30/20 09/26/22 History release metoprolol tartrate 25 mg tablet 12.5 mg PO BID 01/30/20 09/26/22 History hydrochlorothiazide 25 mg tablet 25 mg PO DAILY 02/18/20 09/26/22 History albuterol sulfate 90 mcg/actuation 2 puff inhalation QID PRN 03/23/21 09/26/22 Rx aerosol inhaler shortness of breath or wheezing #6.7 grams Patient hx anesthesia problems: none Family hx anesthesia problems: none Results Review: All pre-operative results and documents have been reviewed as part of the pre-operative evaluation. [facility] Past Medical History Medical History Anxiety [place] Hypertension Lupus Nausea RUQ pain Vasovagal syncope Surgical History Surgical History History of cholecystectomy History of tubal ligation S/P placement of cardiac pacemaker Social History Social History Smoking status: Never smoker Alcohol intake: never Substance use: never Substance use type: does not use Living arrangements: with family Gender identity (if verbalized by the patient): Female Spiritual care concerns: No Anes - Eval Final PreProcedure Day of Procedure 10/04/22 08:09 Patient weight: overweight Heart: regular rate and rhythm Lungs: clear to auscultation Airway: Mallampati scale class II Neurological: alert and oriented Last oral intake: >/= 8 hours ASA classification: III Emergent: no Anesthetic plan: proceed Anesthesia type and monitoring: general GIVS and standard monitoring Results Review: All pre-operative results and documents have been reviewed as part of the pre-operative evaluation. Informed Consent: The patient's anesthetic plan and its attendant risks and benefits were discussed with the patient/family/POA. Questions were solicited and answers provided to the satisfaction of the patient/family/POA.
--- NOTE | 2022-10-04 08:17 | PM.HPGS ---
History of Present Illness History of Present Illness Consent: Risks, benefits, and alternatives have been discussed and questions answered. Patient agrees to proceed with procedure. Chief complaint: neoplasm screening Narrative: Reemdios Lipscomb is a 47 year old female here for screening colonoscopy, had one about 2 years ago, noted few times small amount of blood in stool Review of Systems Constitutional: Constitutional: Denies headache(s) and Denies weakness Eyes: Eyes: Denies blurry vision ENT: Reports Normal hearing present, Denies headache(s) and Denies neck pain Cardiovascular: Cardiovascular: Denies chest pain and Denies dyspnea Respiratory: Respiratory: Denies dyspnea Gastrointestinal: Gastrointestinal: Reports no additional gastrointestinal complaints Genitourinary: Genitourinary: Denies dysuria Musculoskeletal: Musculoskeletal: Denies neck pain Integumentary/Breasts: Skin/Breast: Denies dry skin Neurologic: Reports Normal hearing present, Denies headache(s) and Denies weakness Psychiatric: Psychiatric: Denies anxiety Endocrine: Endocrine: Denies change in body appearance Hematologic/Lymphatic: Hematologic/Lymphatic: Denies easy bleeding Allergic/Immunologic: Allergic/Immunologic: Denies urticaria PMFSH Past Medical History Medical History (Updated 10/04/22 @ 08:18 by Simeon Ellis MD) Anxiety [facility] Colon cancer screening Hypertension Lupus Nausea RUQ pain Vasovagal syncope Surgical History Surgical History History of cholecystectomy History of tubal ligation S/P placement of cardiac pacemaker Social History Social History Smoking status: Never smoker Alcohol intake: never Substance use: never Substance use type: does not use Living arrangements: with family Gender identity (if verbalized by the patient): Female Spiritual care concerns: No Meds Home Medications and Allergies Home Medications Medication Instructions Recorded Confirmed Type bupropion HCl 150 mg tablet,12 hr 150 mg PO BID 01/30/20 09/26/22 History sustained-release duloxetine 60 mg capsule,delayed 60 mg PO DAILY 01/30/20 09/26/22 History release metoprolol tartrate 25 mg tablet 12.5 mg PO BID 01/30/20 09/26/22 History hydrochlorothiazide 25 mg tablet 25 mg PO DAILY 05/08/20 12/15/22 History albuterol sulfate 90 mcg/actuation 2 puff inhalation QID PRN 03/23/21 09/26/22 Rx aerosol inhaler shortness of breath or wheezing #6.7 grams Allergies Allergy/AdvReac Type Severity Reaction Status Date / Time Penicillins Allergy Intermediate Hives Verified 09/26/22 11:56 Vital Signs Vital Signs - 24 hr 10/04/22 07:26 Temperature 97.7 F Pulse Rate 106 H Respiratory Rate 20 Blood Pressure 166/97 H Pulse Oximetry 100 Oxygen Delivery Room Air Exam Const: General: comfortable and no acute distress HENMT: Face/Nose/Sinus: Normal nares present Eyes: General: appearance normal, both eyes and all related structures Neck: Neck: no JVD Resp: Auscultation: clear to auscultation bilaterally Cardio: Rate: regular rate Rhythm: regular rhythm GI: Inspection: non-distended GI Palp: Yes Soft to palpation Skin: General skin exam: normal color Neuro: General: gait normal Speech: normal speech Extrem: General: normal to inspection Psych: Mental Status: mental status grossly normal Assessment and Plan Assessment and plan (1) Colon cancer screening: Code(s): Z12.11 - Encounter for screening for malignant neoplasm of colon Status: Acute Assessment and Plan: colonoscopy
[2022-10-04 08:45] VITALS: BP 131/97; PULSE 100; RESP 21; O2SAT 99
[2022-10-04 08:55] VITALS: BP 138/99; PULSE 83; RESP 21; O2SAT 100
[2022-10-04 09:05] VITALS: BP 140/95; PULSE 82; RESP 19; O2SAT 100
== END 2022-10-04 09:14 | disposition home or self-care (01) ==
PROVIDERS: PCP Nurse Practitioner Family; Visit Provider Internal Medicine Gastroenterology
PROC: 0DJD8ZZ Inspection of Lower Intestinal Tract, Via Natural or Artificial Opening Endoscopic (ICD-10-PCS; CPT 45378; principal; 2022-10-04 08:30)
DX: Z12.11 Encounter for screening for malignant neoplasm of colon (principal); K63.5 Polyp of colon; K64.8 Other hemorrhoids; I10 Essential (primary) hypertension; M32.9 Systemic lupus erythematosus, unspecified; F41.9 Anxiety disorder, unspecified; Z95.0 Presence of cardiac pacemaker; Z79.51 Long term (current) use of inhaled steroids
CPT/HCPCS: 45385; 88305; J2704; J7120

== ENCOUNTER 2023-11-11 12:18 | Emergency (ER) | payer BC, SELFPAY ==
--- NOTE | ~2023-11-11 | CT_ITS ---
Non-contrast CT scan of the Abdomen and Pelvis Clinical indication: Flank pain Technique: 2.5 mm axial scans were obtained through the abdomen and pelvis without intravenous or or al contrast. Dose reduction technique was used on this scan by utilizing automated exposure control a nd iterative reconstruction technique. The dose-length product (DLP) was 484.22 mGy-cm. COMPARISON: 01/30/2020 Findings: Images through the lung bases reveal no abnormalities. Small bilateral nonobstructing renal stones are present. No ureteral stone or hydronephrosis on eithe r side. The liver, spleen, pancreas, and adrenals appear normal. Gallbladder absent. There are atheroscleroti c calcifications of the aorta. Bilateral common iliac vein stents are present. There is no evidence of bowel obstruction. Images through the pelvis were performed. There is no evidence of ascites or lymphadenopathy. Urinary bladder unremarkable. No pelvic mass seen. Impression: Small bilateral nonobstructing renal stones. No ureteral stone or hydronephrosis. Reviewed, dictated and finalized at [facility]. [employer] Impression: Small bilateral nonobstructing renal stones. No ureteral stone or hydronephrosi s.
[2023-11-11 12:20] VITALS: BP 144/103; PULSE 60; RESP 16; TEMP 36.3; O2SAT 100
[2023-11-11 13:03] LABS: Basophils Percent Auto 0.4 % (0.2-1.2); Eosinophils Absolute Auto 0.2 K/mm3 (0-0.3); Eosinophils Percent Auto 2.4 % (0-4.4); Hematocrit 44.4 % (37.0-47.0); Hemoglobin 14.9 g/dL (12.0-15.0); Immature Granulocyte Absolute 0.03 K/mm3 (0.00-0.031); Immature Granulocyte Percent A 0.3 % (0-0.5); Lymphocytes Absolute Auto 2.87 K/mm3 (0.9-3.2); Mean Corpuscular HGB Conc 33.6 g/dl (32-36); Mean Corpuscular Hemoglobin 31.7 pg (26-34); Mean Corpuscular Volume 94.5 fl (80-100); Mean Platelet Volume 9.8 fl (7.4-10.4); Monocytes Absolute Auto 0.7 K/mm3 (0.1-0.6); Monocytes Percent Auto 7.2 % (2.6-8.5); Neutrophils Absolute Auto 5.7 K/mm3 (1.3-6.7); Neutrophils Percent Auto 59.7 % (45.5-73.1); Platelet Count Result 259 k/mm3 (150-375); Red Cell Distribution Width 13.1 % (11.5-14.5); White Blood Count 9.6 K/mm3 (4.5-10.0)
--- NOTE | 2023-11-11 13:04 | ED.ABDPAIN ---
HPI - Abdominal Pain General Chief Complaint: Abdominal Pain Stated Complaint: Back and abdomen pain Time Seen by Provider: 11/11/23 12:30 Source: patient Mode of arrival: ambulatory Limitations: no limitations History of Present Illness HPI narrative: patient is a 48-year-old female who presents to ED with report of right-sided abdominal and flank pain. Patient reports pain began in her R mid back around 1 week ago. Pain has been fairly constant since then, worse over last couple of days. She has been taking Advil for the pain. Pain began to radiate around to her R sided abdomen today. She has not taken anything for pain today. Reported nausea today, 1 episode of emesis last night. Reports urinary frequency, denies dysuria or hematuria. Denies fevers, diarrhea, constipation. Patient does have history of kidney stones. Also reports history of uterine prolapse with occasional stress incontinence. Related Data Home Medications Medication Instructions Recorded Confirmed bupropion HCl 150 mg tablet,12 hr 150 mg PO BID 01/30/20 09/26/22 sustained-release duloxetine 60 mg capsule,delayed 60 mg PO DAILY 01/30/20 09/26/22 release metoprolol tartrate 25 mg tablet 12.5 mg PO BID 01/30/20 09/26/22 hydrochlorothiazide 25 mg tablet 25 mg PO DAILY 02/18/20 09/26/22 Allergies Allergy/AdvReac Type Severity Reaction Status Date / Time Penicillins Allergy Intermediate Hives Verified 09/26/22 11:56 Review of Systems Review of Systems: CONSTITUTIONAL: Denies fever, chills, or sweats. GASTROINTESTINAL: See HPI. GENITOURINARY: Reports urinary frequency. Denies dysuria or hematuria. MUSCULOSKELETAL: See HPI. NEUROLOGIC: Denies headache, dizziness, numbness, or weakness. All systems reviewed & are unremarkable except as noted in HPI and below PMFSH Past Medical History Medical History Anxiety [place] Colon cancer screening Hypertension Lupus Nausea RUQ pain Vasovagal syncope Surgical History Surgical History History of cholecystectomy History of tubal ligation S/P placement of cardiac pacemaker Social History Social History Smoking status: Never smoker Alcohol intake: never Substance use: never Substance use type: does not use Living arrangements: with family Gender identity (if verbalized by the patient): Female Spiritual care concerns: No Exam Narrative: GENERAL: Well appearing, Obese with BMI of 32.6, non-toxic, in no acute distress. HEAD: Normocephalic, atraumatic. RESPIRATORY: Airway patent, respirations nonlabored. Clear to auscultation bilaterally, no rales, rhonchi, wheezing. CARDIOVASCULAR: Regular rate and rhythm without murmurs, rubs, or gallops. ABDOMINAL: Soft, mild tenderness in right mid and lower abdomen, nondistended. Normoactive BS. +mild CVA tenderness to percussion on R. MUSCULOSKELETAL: Moves all extremities. No gross deformities. SKIN: Warm, dry, flushed appearance of face. NEURO: A&O X3. Speech clear. Cranial nerves II-XII grossly intact. Steady gait. No ataxic movements. PSYCHIATRIC: Appropriate mood and affect. Normal interaction. Course Vital Signs Vital signs: Vital Signs Temperature 97.3 F L 11/11/23 12:20 Pulse Rate 60 11/11/23 12:20 Respiratory Rate 16 11/11/23 12:20 Blood Pressure 144/103 H 11/11/23 12:20 Pulse Oximetry 100 11/11/23 12:20 Oxygen Delivery Room Air 11/11/23 12:20 Temperature 98.0 F 11/11/23 13:40 Pulse Rate 60 11/11/23 13:40 Respiratory Rate 18 11/11/23 13:40 Blood Pressure 115/75 11/11/23 13:40 Pulse Oximetry 98 11/11/23 13:40 Oxygen Delivery Room Air 11/11/23 12:20 MDM - Abdominal Pain MDM Narrative Medical decision making narrative: patient present ED with several day history of right-sided
[2023-11-11 13:05] LABS: Appearance Urine Clear (Clear); Bilirubin Urine Negative (Negative); Blood Urine Negative (Negative); Color Urine Yellow (Yellow); Glucose Urine UA Negative (Negative); Ketones Urine Negative (Negative); Leukocyte Esterase Ur Negative LEU/UL (Negative); Nitrate Urine Negative (Negative); Protein Urine Negative (Negative); Specific Grav Ur 1.021 (1.001-1.035); Urobilinogen Urine 0.2 mg/dL (<2.0)
[2023-11-11 13:11] LABS: Add Urine Microscopic? NO
[2023-11-11 13:14] LABS: Alanine Aminotransferase 47 U/L (6-35); Albumin Level 4.4 g/dL (3.5-5.1); Alkaline Phosphatase 103 U/L (38-126); Anion Gap 8 mmol/L (8-16); Aspartate Amino Transferase 38 U/L (14-36); Bilirubin,Total 0.5 mg/dL (0.2-1.3); Blood Urea Nitrogen 20 mg/dL (7-17); Calcium 9.2 mg/dL (8.4-10.2); Carbon Dioxide 28 mmol/L (22-30); Chloride 100 mmol/L (98-107); Estimated CRCL calculation 89 ml/min; Estimated Glomerular Filt Rate > 60; Glucose 101 mg/dL (65-110); Lipase 70 U/L (23-300); Potassium 3.6 mmol/L (3.4-5.0); Sodium 136 mmol/L (137-145)
[2023-11-11] MEDS: SODIUM CHLORIDE 0.9% IV 1,000 ML 999 ML IV CONT (13:30)
[2023-11-11] MEDS: MORPHINE SULFATE (*CRX) 4 MG/ML INJ IV PUSH (13:31)
[2023-11-11] MEDS: ONDANSETRON INJ 4 MG/2 ML VIAL IV PUSH (13:31)
[2023-11-11 13:40] VITALS: BP 115/75; PULSE 60; RESP 18; TEMP 36.7; O2SAT 98
== END 2023-11-11 14:26 | disposition home or self-care (01) ==
PROVIDERS: Emergency Provider Physician Assistant
DX: N20.0 Calculus of kidney (principal); R10.9 Unspecified abdominal pain; F41.9 Anxiety disorder, unspecified; I10 Essential (primary) hypertension
CPT/HCPCS: 36415; 74176; 80053; 81003; 81025; 83690; 85025; 96361; 96374; 96375; 99284; J2270; J2405; J7030

== ENCOUNTER 2023-11-30 12:31 | Emergency (ER) | payer BC, SELFPAY ==
[2023-11-30] VITALS (17 sets, daily range): BP systolic 100–144; BP diastolic 62–99; PULSE 60–71; RESP 14–18; TEMP 36.5; O2SAT 94–100
--- NOTE | ~2023-11-30 | CT_ITS ---
EXAMINATION: CT abdomen pelvis w con DATE: 11/30/2023 17:14 INDICATION: LUQ abd pain, N/V TECHNIQUE: Computed tomography (CT) of the abdomen and pelvis was performed with 11/11/2023 intravenou s contrast. Automated exposure control and iterative reconstruction technique were employed. The dose -length product was 1338.28 mGy-cm. COMPARISON: 11/11/2023, 10/17/2014. FINDINGS: Lower thorax: Pacing wires terminating in expected position. Liver: Enlarged. Diffuse low-density parenchyma Biliary/Gallbladder: Gallbladder is normal. No bile duct dilation. Pancreas: No mass or duct dilation. Spleen: Granulomatous calcifications. Adrenals:11 mm indeterminate density right adrenal nodule (74HU), stable since 2014, most likely repr esenting a benign adenoma. Normal left adrenal. Kidneys: No suspicious mass, obstructing stone, or hydronephrosis. GI tract: Mild distal esophageal and gastric wall edema. No small or large bowel dilation. Appendix n ot visualized. Mesentery/Peritoneum: No ascites, mass, or free air. Retroperitoneum: No mass. Atherosclerotic abdominal aortic and/or arterial calcifications. Bilateral common iliac vein stent Pelvis: Normal urinary bladder. Absent uterus. Normal ovaries.. Soft Tissues: Soft tissues and body wall unremarkable. Bones: No acute osseous finding. IMPRESSION: Hepatomegaly with steatosis. Mild esophagitis/gastritis. Reviewed, dictated and finalized at location K. ITAL MORTICIAN
--- NOTE | ~2023-11-30 | CT_ITS ---
EXAMINATION: CT brain wo con DATE: 11/30/2023 17:05 INDICATION: migraine X1week . TECHNIQUE: Computed tomography (CT) of the head was performed without intravenous contrast. The mA wa s adjusted according to patient size. Iterative reconstruction technique was employed. The dose-lengt h product was 605.33 mGy-cm. COMPARISON: None. FINDINGS: No acute intracranial hemorrhage or extra-axial fluid collection. No hydrocephalus, mass, or herniation. No acute ischemic infarct. Unremarkable dural venous sinus attenuation. No acute osseous abnormality. The aerated spaces are clear. IMPRESSION: No acute intracranial process. Reviewed, dictated and finalized at location K. IST GUIDE
[2023-11-30 15:24] LABS: Appearance Urine Clear (Clear); Basophils Absolute Auto 0.1 K/mm3 (0.0-0.1); Basophils Percent Auto 0.5 % (0.2-1.2); Bilirubin Urine Negative (Negative); Blood Urine Negative (Negative); Color Urine Yellow (Yellow); Eosinophils Absolute Auto 0.2 K/mm3 (0-0.3); Glucose Urine UA Negative (Negative); Hematocrit 49.4 % (37.0-47.0); Hemoglobin 16.7 g/dL (12.0-15.0); Immature Granulocyte Absolute 0.03 K/mm3 (0.00-0.031); Immature Granulocyte Percent A 0.3 % (0-0.5); Ketones Urine Negative (Negative); Leukocyte Esterase Ur Negative LEU/UL (Negative); Lymphocytes Absolute Auto 2.88 K/mm3 (0.9-3.2); Lymphocytes Percent Auto 24.2 % (18.3-44.2); Mean Corpuscular HGB Conc 33.8 g/dl (32-36); Mean Corpuscular Hemoglobin 31.5 pg (26-34); Mean Platelet Volume 9.6 fl (7.4-10.4); Monocytes Absolute Auto 0.9 K/mm3 (0.1-0.6); Monocytes Percent Auto 7.3 % (2.6-8.5); Neutrophils Absolute Auto 7.8 K/mm3 (1.3-6.7); Neutrophils Percent Auto 65.7 % (45.5-73.1); Nitrate Urine Negative (Negative); Platelet Count Result 296 k/mm3 (150-375); Protein Urine Negative (Negative); Red Blood Count 5.31 M/mm3 (4.2-5.4); Red Cell Distribution Width 12.6 % (11.5-14.5); Specific Grav Ur 1.016 (1.001-1.035); Urobilinogen Urine 0.2 mg/dL (<2.0); White Blood Count 11.9 K/mm3 (4.5-10.0); pH Urine 6.5 (5.0-9.0)
[2023-11-30 15:47] LABS: Alanine Aminotransferase 72 U/L (6-35); Albumin Level 4.8 g/dL (3.5-5.1); Alkaline Phosphatase 99 U/L (38-126); Anion Gap 9 mmol/L (8-16); Aspartate Amino Transferase 61 U/L (14-36); Bilirubin,Total 0.9 mg/dL (0.2-1.3); Blood Urea Nitrogen 16 mg/dL (7-17); Calcium 9.4 mg/dL (8.4-10.2); Carbon Dioxide 32 mmol/L (22-30); Chloride 96 mmol/L (98-107); Estimated Glomerular Filt Rate 59; Glucose 118 mg/dL (65-110); Lipase 63 U/L (23-300); Potassium 2.9 mmol/L (3.4-5.0); Sodium 137 mmol/L (137-145)
[2023-11-30 15:48] LABS: Add Urine Microscopic? NO
[2023-11-30] MEDS: SODIUM CHLORIDE 0.9% IV 1,000 ML 999 ML IV CONT ×2 (16:37→16:39)
[2023-11-30 16:51] LABS: Magnesium 2.5 mg/dL (1.6-2.3)
[2023-11-30 16:55] LABS: Pregnancy On Board Control Positive; Urine Pregnancy Test Negative
[2023-11-30 16:55] LABS: Influenza A QL RT-PCR Negative (Negative); Influenza B QL RT-PCR Negative (Negative); RSV RNA, RT-PCR Negative (Negative); SARS-CoV-2 RNA PCR Negative (Negative)
--- NOTE | 2023-11-30 17:15 | ED.NAVMDI ---
HPI - Nausea/Vomiting/Diarrhea General Chief complaint: Nausea/Vomiting/Diarrhea Stated complaint: N&V, back pain, headache Time Seen by Provider: 11/30/23 15:55 Source: patient Mode of arrival: ambulatory History of Present Illness HPI Narrative: Patient is a 48-year-old female who presents to ED with multiple complaints. Patient reports having a headache for the last 1 week. States it was intermittent at first, but has become more constant over the last couple of days. She has tried taking Advil with minimal relief. Reports associated nausea and vomiting, photophobia, phonophobia. Denies vision changes, dizziness, lightheadedness, focal weakness or numbness, neck pain. Denies previous dx of migraines. She does also endorse left upper abdominal pain, intermittent diarrhea, subjective fevers, intermittent paresthesias in bilateral toes, myalgias, cough, rhinorrhea. Denies CP, significant SOB. Related Data Home Medications Medication Instructions Recorded Confirmed bupropion HCl 150 mg tablet,12 hr 150 mg PO BID 01/30/20 09/26/22 sustained-release duloxetine 60 mg capsule,delayed 60 mg PO DAILY 01/30/20 09/26/22 release metoprolol tartrate 25 mg tablet 12.5 mg PO BID 01/30/20 09/26/22 hydrochlorothiazide 25 mg tablet 25 mg PO DAILY 02/18/20 09/26/22 Allergies Allergy/AdvReac Type Severity Reaction Status Date / Time Penicillins Allergy Intermediate Hives Verified 09/26/22 11:56 Review of Systems Review of Systems: CONSTITUTIONAL: See HPI ENT: See HPI CARDIOVASCULAR: Denies chest pain, palpitations, or edema. RESPIRATORY: Reports cough. Denies dyspnea. GASTROINTESTINAL: See HPI GENITOURINARY: Denies dysuria or hematuria. MUSCULOSKELETAL: Reports myalgia. NEUROLOGIC: See HPI All systems reviewed & are unremarkable except as noted in HPI and below PMFSH Past Medical History Medical History Anxiety [place] Colon cancer screening Hypertension Lupus Nausea RUQ pain Vasovagal syncope Surgical History Surgical History History of cholecystectomy History of tubal ligation S/P placement of cardiac pacemaker Social History Social History Smoking status: Never smoker Alcohol intake: never Substance use: never Substance use type: does not use Living arrangements: with family Gender identity (if verbalized by the patient): Female Spiritual care concerns: No Exam Narrative: GENERAL: Well appearing, well-nourished, non-toxic, in no acute distress. HEAD: Normocephalic, atraumatic. EYES: PERRL/EOMI, conjunctivae clear bilaterally. No nystagmus. NECK: Supple. No meningeal signs. RESPIRATORY: Airway patent, respirations nonlabored. Clear to auscultation bilaterally, no rales, rhonchi, wheezing. No focal lung sounds. CARDIOVASCULAR: Regular rate and rhythm without murmurs, rubs, or gallops. Pedal pulses 2+ and equal bilaterally. ABDOMINAL: Soft, mild tenderness in LUQ, nondistended. Normoactive BS. MUSCULOSKELETAL: Moves all extremities. No gross deformities. Sensation intact throughout lower extremities. Good capillary refill throughout toes. Feet and warm and equal in color bilaterally. SKIN: Warm, dry, normal color. No rashes. NEURO: A&O X3. Speech clear. Follows commands. CN II-XII intact. Sensation grossly intact. Steady gait. No ataxic movements. Strength 5/5 in upper and lower extremities bilaterally. No pronator drift. PSYCHIATRIC: Appropriate mood and affect. Normal interaction. Course Vital Signs Vital signs: Vital Signs Temperature 97.7 F 11/30/23 12:52 Pulse Rate 64 11/30/23 12:52 Respiratory Rate 16 11/30/23 12:52 Blood Pressure 129/87 11/30/23 12:52 Pulse Oximetry 100 11/30/23 12:52 Oxygen Delivery Room Air 11/30/23 12:52 Temperature 97.7 F 11/30/23 12:52 Pulse R
[2023-11-30] MEDS: ACETAMINOPHEN 500 MG TABLET 1000 MG PO (17:24)
[2023-11-30] MEDS: diphenhydrAMINE HCl INJ 50 MG/ML VIAL 25 MG IV PUSH (17:25)
[2023-11-30] MEDS: METOCLOPRAMIDE HCL INJ 10 MG/2 ML VIAL IV PUSH (17:27)
[2023-11-30] MEDS: KCL 20 MEQ/SW 100 ML 100 ML 50 MEQ IVPB (17:34)
[2023-11-30] MEDS: KETOROLAC 30 MG/ML VIAL (*BKC) IV PUSH (18:10)
[2023-11-30] MEDS: FAMOTIDINE 20 MG/2 ML VIAL IV PUSH (18:12)
[2023-11-30] MEDS: POTASSIUM CHLORIDE 20 MEQ PACKET (FOR LIQUID) 40 MEQ PO (19:06)
== END 2023-11-30 19:52 | disposition home or self-care (01) ==
PROVIDERS: Emergency Medicine; Emergency Provider Physician Assistant
DX: G43.909 Migraine, unspecified, not intractable, without status migrainosus (principal); B34.9 Viral infection, unspecified; E87.6 Hypokalemia; R11.2 Nausea with vomiting, unspecified; Z20.822 Contact with and (suspected) exposure to COVID-19; I10 Essential (primary) hypertension; F41.9 Anxiety disorder, unspecified; Z90.49 Acquired absence of other specified parts of digestive tract; Z95.0 Presence of cardiac pacemaker; K76.0 Fatty (change of) liver, not elsewhere classified; K20.90 Esophagitis, unspecified without bleeding; K29.70 Gastritis, unspecified, without bleeding
CPT/HCPCS: 36415; 70450; 74177; 80053; 81003; 81025; 83690; 83735; 85025; 87637; 96361; 96365; 96366; 96375; 99284; A9270; J1200; J1885; J2765; J3480; J7030; Q9967

== ENCOUNTER 2024-06-26 14:41 | Emergency (ER) | payer BC, SELFPAY ==
--- NOTE | ~2024-06-26 | XR_ITS ---
XR tibia fibula RT 2V Ordering provider: Tamia Bermudez APRN History: . R leg pain . Comparison: None. FINDINGS: BONES: No acute fracture or dislocation. sclerotic small lesion seen in the midshaft of the tibia mo st likely benign. JOINT SPACES: Normal. SOFT TISSUES: Normal. IMPRESSION: No acute osseous abnormality right leg. Reviewed, dictated and finalized at location A.
--- NOTE | ~2024-06-26 | CT_ITS ---
CTA chest PE abdomen pel Ordering provider: Tamia Bermudez APRN History: . elevated d.dimer . Comparison: None. Technique: CT angiogram chest was performed following timed intravenous injection of contrast. Thin s lice axial images and reformatted coronal images were obtained. Three dimensional reformatted images of the chest were also obtained using a [employer] workstation. Also, CT of the abdomen and pelvis was pe rformed with IV contrast. . Automated exposure control and iterative reconstruction technique were e mployed. The dose-length product was 2070.77 mGy-cm. 100 mL Omnipaque 350 was given IV. FINDINGS: CHEST: Left bipolar pacemaker. --PULMONARY ARTERIES: No pulmonary embolus. --VISUALIZED THORACIC INLET: Normal. --MEDIASTINUM: Aorta/coronary arteries: Mild atheromatous disease. Heart/other: The heart is not enlarged. Lymph nodes: No mediastinal or hilar adenopathy. Left hilar calcified lymph nodes. --LUNGS: No pulmonary nodules or masses. No infiltrates or effusions. No pneumothorax. Calcified granuloma in the left lung base. Dependent atelectatic changes. --MUSCULOSKELETAL: Bones: Age appropriate degenerative changes of the spine. Superficial soft tissues: The superficial soft tissues are normal. ABDOMEN/PELVIS: --MUSCULOSKELETAL: Superficial soft tissues: Small fat-containing umbilical hernia. The superficial soft tissues are nor mal. Bones: Age appropriate degenerative changes of the spine. --UPPER ABDOMINAL ORGANS: Liver: Fat infiltration. Hepatomegaly Gallbladder: Normal. Spleen: Normal. Stomach/duodenum: Normal. Pancreas: Normal. Adrenals: Right adrenal adenoma measuring 1.4 cm. Kidneys: Possible tiny calcification in the left kidney mid and lower pole --PELVIC ORGANS: The bladder is normal. No bladder stones. --BOWEL AND MESENTERY: Colon: No evidence of diverticulitis. Appendix is not demonstrated. Small Bowel: Normal. No obstruction. Peritoneum/mesentery: No free air or free fluid. No mesenteric lymphadenopathy. --RETROPERITONEUM: Mild atheromatous disease of the abdominal aorta. Bilateral iliac stents. No retr operitoneal lymphadenopathy. IMPRESSION: CHEST: 1. No pulmonary embolism. 2. No acute cardiopulmonary pathology. ABDOMEN/PELVIS: 1. Hepatomegaly with fat Infiltration. 2. Small right adrenal adenoma. Unless there is any clinical indication. No follow-up advised. 3. Possible tiny calcifications in the left kidney. Reviewed, dictated and finalized at location A. IMPRESSION: CHEST: 1. No pulmonary embolism. 2. No acute cardiopulmonary pathology. ABDOMEN/PELVIS: 1. Hepatomegaly with fat Infiltration. 2. Small right adrenal adenoma. Unless there is any clinical indication. No fo llow-up advised. 3. Possible tiny calcifications in the left kidney.
--- NOTE | ~2024-06-26 | XR_ITS ---
XR ankle RT 2V Ordering provider: Tamia Bermudez APRN History: . R leg pain . Comparison: None. FINDINGS: BONES: No acute fracture or dislocation. Calcaneus spur. Ossification of the insertion of the Achilles. JOINT SPACES: Normal. SOFT TISSUES: Normal. IMPRESSION: No acute osseous abnormality of the right ankle. Reviewed, dictated and finalized at location A.
--- NOTE | ~2024-06-26 | XR_ITS ---
XR foot RT 2V Ordering provider: Tamia Bermudez APRN History: . R foot pain . Comparison: None. FINDINGS: BONES: Lucency in the distal end of the distal phalanx of the big toe which may be old fracture. Clin ical evaluation for tenderness to exclude acute fracture is advised.. Calcaneus spur. Fixation of the insertion of the tendo Achilles JOINT SPACES: Normal. No tarsal coalition. SOFT TISSUES: Normal. IMPRESSION: No definite acute osseous abnormality of the right foot. Lucency in the distal phalanx of the big toe . Evaluation for tenderness advised. Reviewed, dictated and finalized at location A. IMPRESSION: No definite acute osseous abnormality of the right foot. Lucency in the distal phalanx of the big toe. Evaluation for tenderness advised.
--- NOTE | ~2024-06-26 | XR_ITS ---
XR chest 2V Ordering provider: Tamia Bermudez APRN History: 49 years Female with . LL lung wheezing . Comparison: March 23, 2021 FINDINGS: MEDIASTINUM: The cardiac silhouette is not enlarged. Left bipolar pacemaker. LUNGS: No effusions or pneumothorax. Left lower lobe prominent markings with minimal opacification is seen which may indicate pneumonitis. Follow-up advised. OTHER: No free air under the diaphragm. Degenerative changes of the spine. IMPRESSION: Left lower lobe pneumonitis. Follow-up advised. Reviewed, dictated and finalized at location A.
[2024-06-26 14:43] VITALS: BP 140/81; PULSE 83; RESP 16; TEMP 36.4; O2SAT 99
--- NOTE | 2024-06-26 15:39 | ED.EXTPRO ---
HPI - Extremity Problem General Chief complaint: Extremity Problem,Nontraumatic Stated complaint: rle issue Time Seen by Provider: 06/26/24 15:08 Source: patient Mode of arrival: ambulatory Limitations: no limitations History of Present Illness HPI Narrative: Patient is a 49-year-old female who presents to ER with right lower extremity pain. She endorses significant pain on the anterior portion her right lower leg. The pain travels down and leads to numbness in her right foot and toes. She reports she has a history of a cervical fusion, stents in her heart, pacemaker, history of smoking cigarettes, and hysterectomy. Patient reports she has not smoked cigarettes in over 10 years. 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 Patient reports she has a primary care provider of [place] who she sees regularly. She denies chest pain, shortness of breath, or neurological changes. Patient does report noticeable swelling in her RLE and has concerns of possibly being diabetic, but denies history of stroke. MD Complaint: extremity pain and extremity swelling Related Data Home Medications Medication Instructions Recorded Confirmed bupropion HCl 150 mg tablet,12 hr 150 mg PO BID 01/30/20 09/26/22 sustained-release duloxetine 60 mg capsule,delayed 60 mg PO DAILY 01/30/20 09/26/22 release metoprolol tartrate 25 mg tablet 12.5 mg PO BID 01/30/20 09/26/22 hydrochlorothiazide 25 mg tablet 25 mg PO DAILY 02/18/20 09/26/22 Allergies Allergy/AdvReac Type Severity Reaction Status Date / Time Penicillins Allergy Intermediate Hives Verified 06/26/24 14:56 Review of Systems Review of Systems: All systems reviewed & are unremarkable except as noted in HPI and below PMFSH Past Medical History Medical History Anxiety [place] Colon cancer screening Hypertension Lupus Nausea RUQ pain Vasovagal syncope Surgical History Surgical History History of cholecystectomy History of tubal ligation S/P placement of cardiac pacemaker Social History Social History Smoking status: Never smoker Alcohol intake: never Substance use: never Substance use type: does not use Living arrangements: with family Gender identity (if verbalized by the patient): Female Spiritual care concerns: No Exam Narrative: GENERAL: Well appearing, well-nourished, non-toxic, in no acute distress. RESPIRATORY: Airway patent, respirations nonlabored. Coarse/wheezing noted in RL lobe, no rales, rhonchi. CARDIOVASCULAR: Regular rate and rhythm without murmurs, rubs, or gallops. Peripheral pulses 2+ and equal bilaterally. ABDOMINAL: Soft, nontender, nondistended, no hepatosplenomegaly. Normoactive BS. MUSCULOSKELETAL: Moves all extremities. Strength/ROM intact without gross deformities. Minimal mild RLE swelling, endorses tenderness to extremity with any touch, she endorses increased pain with abduction and adduction, flexion and extension, and pressure to bottom of the foot. SKIN: Warm, dry, normal color. No rashes. NEURO: A&O X3. Speech clear. Cranial nerves II-XII grossly intact. No ataxic movements. PSYCHIATRIC: Appropriate mood and affect. Normal interaction. Extrem: General: no pedal edema and edema (mild) right Course Vital Signs Vital signs: Vital Signs Temperature 36.4 C 06/26/24 14:43 Pulse Rate 83 06/26/24 14:43 Respiratory Rate 16 06/26/24 14:43 Blood Pressure 140/81 06/26/24 14:43 Pulse Oximetry 99 06/26/24 14:43 Temperature 36.4 C 06/26/24 14:43 Pulse Rate 59 L 06/26/24 18:24 Respiratory Rate 18 06/26/24 18:24 Blood Pressure 113/82 06/26/24 18:24 Pulse Oximetry 98 06/26/24 18:24 MDM - Extremity (Nontraumatic) MDM Narrative Medical decision making narrative: Patient is
[2024-06-26 15:51] VITALS: RESP 16
[2024-06-26] MEDS: IPRATROPIUM 0.5 MG/ALBUTEROL SULFATE 2.5 MG AMPUL.NEB 3 ML INHALATION (15:51)
[2024-06-26] MEDS: HYDROcodone/acetaminophen (*CRX) 5-325 MG TABLET 1 TAB PO (15:58)
[2024-06-26] MEDS: KETOROLAC 15 MG/ML VIAL (*BKC) IV PUSH (15:59)
[2024-06-26 16:03] LABS: Basophils Percent Auto 0.4 % (0.2-1.2); Eosinophils Absolute Auto 0.3 K/mm3 (0-0.3); Eosinophils Percent Auto 3.3 % (0-4.4); Hematocrit 43.1 % (37.0-47.0); Immature Granulocyte Absolute 0.04 K/mm3 (0.00-0.031); Immature Granulocyte Percent A 0.5 % (0-0.5); Lymphocytes Absolute Auto 1.79 K/mm3 (0.9-3.2); Lymphocytes Percent Auto 21.9 % (18.3-44.2); Mean Corpuscular HGB Conc 34.8 g/dl (32-36); Mean Corpuscular Hemoglobin 33.2 pg (26-34); Mean Corpuscular Volume 95.4 fl (80-100); Monocytes Absolute Auto 0.6 K/mm3 (0.1-0.6); Monocytes Percent Auto 7.8 % (2.6-8.5); Neutrophils Absolute Auto 5.4 K/mm3 (1.3-6.7); Neutrophils Percent Auto 66.1 % (45.5-73.1); Platelet Count Result 220 k/mm3 (150-375); Red Blood Count 4.52 M/mm3 (4.2-5.4); Red Cell Distribution Width 13.3 % (11.5-14.5); White Blood Count 8.2 K/mm3 (4.5-10.0)
[2024-06-26 16:31] LABS: Prothrombin Time 13.3 Seconds (11.1-14.7)
[2024-06-26 16:32] LABS: Partial Thromboplastin Time 27.3 Seconds (22.3-36.8)
[2024-06-26 16:37] LABS: Alanine Aminotransferase 89 U/L (6-35); Albumin Level 4.2 g/dL (3.5-5.1); Alkaline Phosphatase 92 U/L (38-126); Aspartate Amino Transferase 91 U/L (14-36); Bilirubin,Total 0.6 mg/dL (0.2-1.3); Blood Urea Nitrogen 19 mg/dL (7-17); CRP 1.4 mg/dL (<1.0); Calcium 8.6 mg/dL (8.4-10.2); Carbon Dioxide 28 mmol/L (22-30); Chloride 92 mmol/L (98-107); Estimated CRCL calculation 99 ml/min; Estimated Glomerular Filt Rate > 60; Glucose 149 mg/dL (65-110); Uric Acid 7.7 mg/dL (2.5-7.5)
[2024-06-26 16:38] LABS: D Dimer 1.09 ug/mL (<0.48)
[2024-06-26 16:39] LABS: Erythrocyte Sedimentation Rate 9 mm/hr (0-20)
[2024-06-26 16:40] LABS: Anion Gap 15 mmol/L (4-12); Potassium 3.6 mmol/L (3.4-5.0); Sodium 135 mmol/L (137-145)
[2024-06-26 18:24] VITALS: BP 113/82; PULSE 59; RESP 18; O2SAT 98
[2024-06-26] MEDS: AZITHROMYCIN 250 MG TABLET 500 MG PO (19:04)
[2024-06-26] MEDS: MORPHINE SULFATE (*CRX) 4 MG/ML INJ IV PUSH (19:04)
[2024-06-26] MEDS: methylPREDNISolone SOD SUCC 125 MG VIAL IV PUSH (21:29)
[2024-06-26] MEDS: MORPHINE SULFATE (*CRX) 2 MG/ML INJ IV PUSH (21:29)
[2024-06-26] MEDS: SODIUM CHLORIDE 0.9% IV 1,000 ML 999 ML IV CONT (21:30)
[2024-06-26 23:32] VITALS: BP 116/73; PULSE 78; RESP 16; O2SAT 98
== END 2024-06-27 00:12 | disposition home or self-care (01) ==
PROVIDERS: Emergency Provider Registered Nurse
DX: M32.9 Systemic lupus erythematosus, unspecified (principal); M79.661 Pain in right lower leg; J18.9 Pneumonia, unspecified organism; I10 Essential (primary) hypertension; F41.9 Anxiety disorder, unspecified; Z90.49 Acquired absence of other specified parts of digestive tract; Z95.0 Presence of cardiac pacemaker; R16.0 Hepatomegaly, not elsewhere classified; D35.01 Benign neoplasm of right adrenal gland
CPT/HCPCS: 36415; 71046; 71275; 73590; 73600; 73620; 74177; 80053; 83605; 84550; 85025; 85380; 85610; 85652; 85730; 86140; 94640; 96361; 96374; 96375; 96376; 99284; A9270; J1885; J2270; J2919; J7030; Q9967

== ENCOUNTER 2024-06-27 08:08 | Outpatient (CLI) | payer BC, SELFPAY ==
--- NOTE | ~2024-06-27 | US_ITS ---
EXAMINATION: US venous doppler LE RT DATE: 06/27/2024 08:21 INDICATION: Right lower limb pain TECHNIQUE: Grayscale ultrasound images without and with compression and Doppler ultrasound images of the right lower extremity veins were obtained. COMPARISON: None. FINDINGS: The visualized portions of right common femoral vein, profunda (deep) femoral vein, femoral vein, pop liteal vein, peroneal trunk, posterior tibial veins, peroneal veins, gastrocnemius vein and greater s aphenous vein outflow are patent. IMPRESSION: 1. No deep venous thrombosis in the right lower limb. Reviewed, dictated and finalized at location A.
== END 2024-06-27 08:09 | disposition home or self-care (01) ==
LOC: ANHOUTPT 08:09
PROVIDERS: Visit Provider Registered Nurse
DX: M79.604 Pain in right leg (principal)
CPT/HCPCS: 93971

== ENCOUNTER 2024-09-04 16:33 | Emergency (ER) | payer BC, SELFPAY ==
--- NOTE | ~2024-09-04 | XR_ITS ---
XR shoulder LT min 2V DATE: 09/04/2024 17:03 INDICATION: Left shoulder pain. No injury. TECHNIQUE: 3 views COMPARISON: None FINDINGS: No fracture or dislocation, periosteal reaction or bone destruction. Normal alignment at th e acromioclavicular and glenohumeral joints. No abnormal soft tissue calcification. Left-sided transvenous pacemaker device. IMPRESSION: No significant abnormality of the left shoulder Reviewed, dictated and finalized at location A. BOTOMY DIRECTOR
[2024-09-04 16:46] VITALS: BP 124/85; PULSE 60; RESP 16; TEMP 36.4; O2SAT 100
--- NOTE | 2024-09-04 16:49 | ED_ITS ---
HPI - Extremity Injury (Upper) General Chief Complaint: Extremity Injury, Upper Stated Complaint: Left Arm Pain Time Seen by Provider: 09/04/24 16:49 Source: patient Mode of arrival: ambulatory Limitations: no limitations History of Present Illness HPI narrative: 49-year-old female presents with complaint of pain to left side of neck, left upper back, left shoulder radiating down left arm. Pain for 2-3 days. No injury. 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 Pain worse with movement. Reports some tingling to left fingers. No weakness or numbness. All systems reviewed and negative except as noted above. Related Data Home Medications Medication Instructions Recorded Confirmed bupropion HCl 150 mg tablet,12 hr 150 mg PO BID 01/30/20 09/04/24 sustained-release duloxetine 60 mg capsule,delayed 60 mg PO DAILY 01/30/20 09/04/24 release hydrochlorothiazide 25 mg tablet 25 mg PO DAILY 02/18/20 09/04/24 gabapentin 300 mg capsule 300 mg PO DAILY 09/04/24 09/04/24 losartan 25 mg tablet 25 mg PO DAILY 09/04/24 09/04/24 metoprolol tartrate 100 mg tablet mg 09/04/24 09/04/24 oxybutynin chloride 5 mg tablet mg 09/04/24 ranolazine 500 mg tablet,extended mg PO 09/04/24 release,12 hr triamcinolone acetonide 0.1 % applic topical 09/04/24 topical cream Allergies Allergy/AdvReac Type Severity Reaction Status Date / Time Penicillins Allergy Intermediate Hives Verified 06/26/24 14:56 Review of Systems Review of Systems: CONSTITUTIONAL: Denies fever, chills, or sweats. EYES: Denies visual changes, redness, or discharge. ENT: Denies rhinorrhea, congestion, sore throat, or otalgia. CARDIOVASCULAR: Denies chest pain, palpitations, or edema. RESPIRATORY: Denies cough or dyspnea. GASTROINTESTINAL: Denies abdominal pain, nausea, vomiting, or diarrhea. GENITOURINARY: Denies dysuria or hematuria. SKIN: Denies rash or itching. MUSCULOSKELETAL: Denies back pain, joint pain, or myalgia. Reports pain to left upper extremity, left upper back and left-sided neck. NEUROLOGIC: Denies headache, numbness, or weakness. PSYCHIATRIC: Denies anxiety or depression. All other systems reviewed are negative, except as documented in HPI. [facility] Past Medical History Medical History Anxiety [place] Colon cancer screening Hypertension Lupus Nausea RUQ pain Vasovagal syncope Surgical History Surgical History History of cholecystectomy History of tubal ligation S/P placement of cardiac pacemaker Social History Social History Smoking status: Never smoker Alcohol intake: never Substance use: never Substance use type: does not use Living arrangements: with family Gender identity (if verbalized by the patient): Female Spiritual care concerns: No Comments At time of signature, agree with nursing past medical, surgical, social and family history. There is no relevant family history pertinent to the presenting complaint. Exam Narrative: GENERAL: This is a well-nourished, well-developed patient, in no apparent distress. HEAD: normocephalic, atraumatic. EYES: PERRL. Sclera clear/white. Vision is grossly intact. EARS: External ears normal NOSE: External nose normal NECK: Neck supple, non-tender without lymphadenopathy, masses or thyromegaly. CARDIOVASCULAR: Regular rate and rhythm without murmurs, gallops, or rubs. RESPIRATORY: Clear to auscultation. Breath sounds equal bilaterally. No wheezes, rales, or rhonchi. SKIN: warm, Dry, intact with no suspicious lesions or rash, good texture and turgor. NEURO: awake, alert, and oriented to person, place and time. There were no obvious focal neurologic abnormalities. EXTREMITIES: Generalized tenderness to entire left upper extremity, worse to left shoulder. BACK: Muscular tenderness to left upper back and left side of neck, trapezius and rhomboid muscles. Course Course Level of Care: Express Care Visit Vital Signs Vital signs: Vital Signs Temperature 36.4 C 09/04/24 16:46 Pulse Rate 60 09/04/24 16:46 Respiratory Rate 16 09/04/24 16:46 Blood Pressure 124/85 09/04/24 16:46 Pulse Oximetry 100 09/04/24 16:46 Temperature 36.4 C 09/04/24 16:46 Pulse Rate 60 1123/24 16:46 Respiratory Rate 16 09/04/24 16:46 Blood Pressure 124/85 09/04/24 16:46 Pulse Oximetry 100 09/04/24 16:46 Reviewed MDM - Extremity Injury (Upper) MDM Narrative Medical decision making narrative: Patient is aware of diagnosis, understands and agrees to treatment plan. Anticipatory guidance given. Patient agrees to follow-up as directed and is aware of reasons to seek care at the emergency department. Portions of this record may have been created with voice recognition software X-ray of left shoulder was normal. Will treat patient with prednisone, methocarbamol for left upper extremity and left upper back strain. Recommend rest, ice, stretching. Recommend [id number] Tylenol or ibuprofen. No neuro deficits at time of discharge. Imaging Data My impression: Agree with radiologist Radiologist's impression: XR shoulder LT min 2V DATE: 09/04/2024 17:03 INDICATION: Left shoulder pain. No injury. TECHNIQUE: 3 views COMPARISON: None FINDINGS: No fracture or dislocation, periosteal reaction or bone destruction. Normal alignment at the acromioclavicular and glenohumeral joints. No abnormal soft tissue calcification. Left-sided transvenous pacemaker device. IMPRESSION: No significant abnormality of the left shoulder Discharge Plan Discharge Clinical Impression: Strain of left upper arm Qualifiers: Encounter type: initial encounter Qualified Code(s): S46.912A - Strain of unspecified muscle, fascia and tendon at shoulder and upper arm level, left arm, initial encounter Muscle strain of left upper back Qualifiers: Encounter type: initial encounter Qualified Code(s): S29.012A - Strain of muscle and tendon of back wall of thorax, initial encounter Patient Disposition: Home, Self-Care Condition: Stable Instructions: Muscle Strain (DC), Musculoskeletal Pain (ED) Additional Instructions: The x-ray of your left shoulder was normal. Take medications as prescribed. Start prednisone tomorrow morning. Methocarbamol as a muscle relaxant may make you drowsy. Do not drive while taking this medication. Alternate between ibuprofen and Tylenol every 4 hours. Alternate between ice and heat. Do stretching exercises as tolerated. Follow-up with your primary care physician if pain is not improving. Prescriptions: New prednisone 20 mg tablet See Rx Instructions .ROUTE .COMPLEX Qty: 12 0RF Rx Instructions: Take 3 tablets today, then 2 tablets daily for 3 days then 1 tablet daily for 3 days. methocarbamol 750 mg tablet 750 mg PO Q8H PRN (Reason: muscle pain/spasm) Qty: 30 0RF No Action metoprolol tartrate 100 mg tablet triamcinolone acetonide 0.1 % cream TOPICAL losartan 25 mg tablet 25 mg PO DAILY gabapentin 300 mg capsule 300 mg PO DAILY oxybutynin chloride 5 mg tablet ranolazine 500 mg tablet extended release 12 hr PO albuterol sulfate 90 mcg/actuation HFA aerosol inhaler 2 puff inhalation QID PRN (Reason: shortness of breath or wheezing) Qty: 6.7 0RF bupropion HCl 150 mg Tablet Sustained-Release 12 Hr 150 mg PO BID duloxetine 60 mg Capsule,Delayed Release(Dr/Ec) 60 mg PO DAILY hydrochlorothiazide 25 mg tablet 25 mg PO DAILY Follow-up/Referrals: Matilda,Lupe Paulino APRN [Primary Care Provider] - Time of Disposition: 17:36
[2024-09-04] MEDS: KETOROLAC (*BKC) 60 MG/2 ML VIAL IM (17:42)
== END 2024-09-04 17:45 | disposition home or self-care (01) ==
PROVIDERS: Emergency Provider Nurse Practitioner Family; PCP Nurse Practitioner Family
DX: S46.912A Strain of unspecified muscle, fascia and tendon at shoulder and upper arm level, left arm, initial encounter (principal); X58.XXXA Exposure to other specified factors, initial encounter; S29.012A Strain of muscle and tendon of back wall of thorax, initial encounter; I10 Essential (primary) hypertension; F41.9 Anxiety disorder, unspecified; Z95.0 Presence of cardiac pacemaker
CPT/HCPCS: 73030; 96372; 99213; G0463; J1885

== ENCOUNTER 2024-09-22 12:28 | Emergency (ER) | payer BC, SELFPAY ==
--- NOTE | ~2024-09-22 | XR_ITS ---
XR abdomen/kub 1V Ordering provider: Leonel Peres APRN History: . bilat lower abd/flank pain r/o stone/constipation . Comparison: None. FINDINGS: BOWEL: Fecal material is seen in the right side of the colon Nonobstructive bowel gas pattern. ORGANOMEGALY: None. SIGNIFICANT PATHOLOGIC CALCIFICATIONS: Faint calcifications are seen in the left kidney. OTHER: No free air is seen under the diaphragm. Stents seen in the iliac arteries IMPRESSION: NO ACUTE ABDOMINAL FINDINGS. Left kidney stones. Possible constipation. Reviewed, dictated and finalized at location A. [employer]
--- NOTE | 2024-09-22 12:31 | ED_ITS ---
HPI - Back Pain/Injury General Chief Complaint: Back Pain/Injury Stated Complaint: Back Pain Time Seen by Provider: 09/22/24 12:30 Source: patient Mode of arrival: ambulatory Limitations: no limitations History of Present Illness HPI Narrative: Remedios is a 49-year-old female patient presenting to the clinic today with complaints of low back pain bilaterally as well as lower abdominal pain since last night. She reports she is having increased urinary frequency. Denies any chest pain or increased shortness of breath. Does have some numbness to the right leg anteriorly that is been going on x1 week. Rates her pain sharp when it occurs and rates it currently a 8/10. Last bowel movement was the day before yesterday. She denies any known injury to her back or abdomen. Related Data Home Medications ?Medication ?Instructions ?Recorded ?Confirmed ?Last Taken ?Type bupropion HCl 150 mg tablet,12 hr 150 mg PO BID 01/30/20 09/04/24 10/03/22 Hi story sustained-release duloxetine 60 mg capsule,delayed 60 mg PO DAILY 01/30/20 09/04/24 10/03/22 History release hydrochlorothiazide 25 mg tablet 25 mg PO DAILY 02/18/20 09/04/24 10/03/22 History gabapentin 300 mg capsule 300 mg PO DAILY 09/04/24 09/04/24 Unknown History losartan 25 mg tablet 25 mg PO DAILY 09/04/24 09/04/24 Unknown History metoprolol tartrate 100 mg tablet mg 09/04/24 09/04/24 Unknown History oxybutynin chloride 5 mg tablet mg 09/04/24 Unknown History ranolazine 500 mg tablet,extended mg PO 09/04/24 Unknown History release,12 hr triamcinolone acetonide 0.1 % applic topical 09/04/24 Unknown History topical cream Allergies Allergy/AdvReac Type Severity Reaction Status Date / Time Penicillins Allergy Intermediate Hives Verified 09/22/24 13:26 escitalopram (From Lexapro) Allergy Unknown Verified 09/22/24 13:26 Review of Systems Review of Systems: Pertinent positives per HPI. Patient denies any fever, chills, rash, headache, visual changes, dizziness, cough, shortness of breath, chest pain, palpitations, nausea, vomiting, diarrhea, constipation. [facility] Past Medical History Medical History Anxiety [place] Colon cancer screening Hypertension Lupus Nausea RUQ pain Vasovagal syncope Surgical History Surgical History History of cholecystectomy History of tubal ligation S/P placement of cardiac pacemaker Social History Social History Smoking status: Never smoker Alcohol intake: never Substance use: never Substance use type: does not use Living arrangements: with family Gender identity (if verbalized by the patient): Female Spiritual care concerns: No Comments At the time of my signature, I reviewed and agree with the nursing past medical, surgical, social, and family history. There is no relevant family history pertinent to the patient complaint. Exam Narrative: General: Well-developed, well nourished, in no apparent distress. Head: Normocephalic, atraumatic. Cardio: Regular rate and rhythm, s1 and s2 normal, no murmur appreciated. Resp: Clear to auscultation bilaterally, no rhonchi, rales, wheezing or rubs. Abdomen: Soft, pliable, bowel sounds present in all quadrants, bilateral lower abdomen tender to palpation, no organomegly, bilateral CVAT tenderness. Musculoskeletal: No deformity, non-tender to palpation, grossly normal range of motion, muscle strength strong and equal in BLE. SLT negative, patellar reflexes 2/4 bilaterally, negative foot drop, normal gait and station Course Course Emergency Course: Portions of this record may have been created with voice recognition software. Level of Care: Express Care Visit Vital Signs Vital signs: Vital signs reviewed MDM - Back Pain/Injury MDM Narrative Medical decision making narrative: At the time of visit patient is resting comfortably on the exam table. Patient appears to be nontoxic. Labs: Urinalysis shows trace of leukocytes, 1+ protein, and bili. We will send urine for culture Diagnostics: KUB x-ray shows left renal stones, possible constipation without any acute abnormality of the abdomen Plan: I suspect patient has constipation, and likely a urinary tract infection. Prescription for Macrobid was sent to the pharmacy and encourage use of MiraLax daily for constipation. Supportive measures were discussed with the patient and they voiced understanding discharge instructions and agrees to treatment plan. Return precautions reviewed Differential Diagnosis Differential diagnosis: Likely lumbar radiculopathy, sciatica, strain of lumbar region, renal colic, pyelonephritis, thoracic back pain, discitis and other (Constipation, UTI) Discharge Plan Discharge Clinical Impression: Constipation, Kidney stone on left side UTI (urinary tract infection) Qualifiers: Urinary tract infection type: acute cystitis Hematuria presence: without hematuria Qualified Code(s): N30.00 - Acute cystitis without hematuria Patient Disposition: Home, Self-Care Condition: Stable Instructions: Antibiotic Form, Constipation (ED), Kidney Stones (ED), Urinary Tract Infection in Women (ED), Flank Pain (ED) Additional Instructions: Abdomen x-ray shows possible constipation, left kidney stones in the kidney, without any other abnormal findings Urinalysis shows trace leukocytes, 1+ protein, and 1+ bili. We will send urine for culture. Take Bactrim as prescribed May use heat or ice to the affected area May use blue emu, lidocaine patches, or asper cream to affected area- do not apply heat or ice directly over cream- can cause burn. Increase fluids and stay well hydrated May take MiraLax daily 1 scoop in 8 oz of water or juice for constipation Wipe front to back. May use wet wipes. Avoid tub baths If sexually active- pee before and after intercourse. Wear cotton panties Avoid tight clothing up against the genitals Follow up with your PCP in 1 week if symptoms persist. Patient Language: Thai Prescriptions: New nitrofurantoin monohyd/m-cryst [Macrobid] 100 mg capsule 100 mg PO Q12H 5 Days Qty: 10 0RF Rx Instructions: must administer with a meal/food No Action metoprolol tartrate 100 mg tablet triamcinolone acetonide 0.1 % cream TOPICAL losartan 25 mg tablet 25 mg PO DAILY gabapentin 300 mg capsule 300 mg PO DAILY oxybutynin chloride 5 mg tablet ranolazine 500 mg tablet extended release 12 hr PO prednisone 20 mg tablet See Rx Instructions .ROUTE .COMPLEX Qty: 12 0RF Rx Instructions: Take 3 tablets today, then 2 tablets daily for 3 days then 1 tablet daily for 3 days. methocarbamol 750 mg tablet 750 mg PO Q8H PRN (Reason: muscle pain/spasm) Qty: 30 0RF albuterol sulfate 90 mcg/actuation HFA aerosol inhaler 2 puff inhalation QID PRN (Reason: shortness of breath or wheezing) Qty: 6.7 0RF bupropion HCl 150 mg Tablet Sustained-Release 12 Hr 150 mg PO BID duloxetine 60 mg Capsule,Delayed Release(Dr/Ec) 60 mg PO DAILY hydrochlorothiazide 25 mg tablet 25 mg PO DAILY Follow-up/Referrals: UNKNOWN,DOCTOR [Non-Staff] - Time of Disposition: 14:05 Quality NIHSS Nursing Documentation ED NIHSS nursing documentation: reviewed/agree
[2024-09-22 12:38] VITALS: BP 121/86; PULSE 68; RESP 16; TEMP 36.6; O2SAT 100
--- NOTE | 2024-09-22 12:56 | PC.NURSE ---
UNABLE TO PROVIDE URINE SPECIMEN AT THIS TIME. WATER PROVIDED.
--- NOTE | 2024-09-22 13:16 | PC.NURSE ---
PT IS ATTEMPTING TO PROVIDE SAMPLE AT THIS TIME.
[2024-09-22 14:01] LABS: EDUAAPPEAR Cloudy; EDUABILI 1+ (Negative); EDUABLOOD Negative (Negative); EDUACOLOR1 Yellow; EDUAGLUCOSE Negative (Negative); EDUAKETONE Negative (Negative); EDUALEUKO Trace (Negative); EDUANITRATE Negative (Negative); EDUAPH 6.5; EDUAPROTEIN 1+ (Negative); EDUAUROBILI 0.2
--- NOTE | 2024-09-22 14:09 | PC.NURSE ---
PT HAS PROVIDED UA SPECIMEN, IS AWAITING XRAY RESULTS AT THIS TIME. NAD NOTED. WILL CONTINUE TO MONITOR.
[2024-09-22 14:20] VITALS: BP 122/70; PULSE 62; RESP 16; O2SAT 99
== END 2024-09-22 14:20 | disposition home or self-care (01) ==
PROVIDERS: Emergency Provider Nurse Practitioner Family
DX: K59.00 Constipation, unspecified (principal); N20.0 Calculus of kidney; N30.00 Acute cystitis without hematuria; I10 Essential (primary) hypertension; F41.9 Anxiety disorder, unspecified
CPT/HCPCS: 74018; 81003; 87086; 99213; G0463

== ENCOUNTER 2024-10-30 13:06 | Emergency (ER) | payer BC, SELFPAY ==
[2024-10-30 13:30] VITALS: BP 122/83; PULSE 81; RESP 16; TEMP 37.6; O2SAT 100
[2024-10-30 13:41] LABS: EDCOVIDSCREEN Positive (Negative)
[2024-10-30 13:46] LABS: EDINFLUASCREEN Negative (Negative); EDINFLUBSCREEN Negative (Negative)
--- NOTE | 2024-10-30 13:57 | ED_ITS ---
HPI - URI/Sore Throat General Chief Complaint: Upper Respiratory Infection Stated Complaint: Nausea/Cough/Headache Time Seen by Provider: 10/30/24 13:49 Source: patient and RN notes reviewed Mode of arrival: ambulatory Limitations: no limitations History of Present Illness HPI Narrative: Patient presents today complaining of a 5 day history of body aches, cough, posttussive vomiting, fever up to 101, mild shortness of breath. She has tried Tylenol cold and flu with mild relief. History of asthma. Related Data Home Medications ?Medication ?Instructions ?Recorded ?Confirmed ?Last Taken ?Type bupropion HCl 150 mg tablet,12 hr 150 mg PO BID 01/30/20 09/04/24 10/03/22 History sustained-release duloxetine 60 mg capsule,delayed 60 mg PO DAILY 01/30/20 09/04/24 10/03/22 History release hydrochlorothiazide 25 mg tablet 25 mg PO DAILY 02/18/20 09/04/24 10/03/22 History gabapentin 300 mg capsule 300 mg PO DAILY 09/04/24 09/04/24 Unknown History losartan 25 mg tablet 25 mg PO DAILY 09/04/24 09/04/24 Unknown History metoprolol tartrate 100 mg tablet mg 09/04/24 09/04/24 Unknown History oxybutynin chloride 5 mg tablet mg 09/04/24 Unknown History ranolazine 500 mg tablet,extended mg PO 09/04/24 Unknown History release,12 hr triamcinolone acetonide 0.1 % applic topical 09/04/24 Unknown History topical cream albuterol sulfate 2.5 mg/3 mL mg 10/30/24 Unknown History (0.083 %) solution for nebulization Allergies Allergy/AdvReac Type Severity Reaction Status Date / Time Penicillins Allergy Intermediate Hives Verified 10/30/24 13:31 escitalopram (From Lexapro) Allergy Unknown Verified 10/30/24 13:31 Review of Systems Review of Systems: CONSTITUTIONAL: Denies chills, or sweats.+ body aches fever EYES: Denies visual changes, redness, or discharge. ENT: Denies rhinorrhea, congestion, sore throat, or otalgia. CARDIOVASCULAR: Denies chest pain, palpitations, or edema. RESPIRATORY: + cough, mild shortness of breath GASTROINTESTINAL: Denies abdominal pain, nausea, vomiting, or diarrhea. GENITOURINARY: Denies dysuria or hematuria. SKIN: Denies rash, itching, or wounds. MUSCULOSKELETAL: Denies back pain, joint pain, or myalgia. NEUROLOGIC: Denies headache, numbness, tingling, or weakness. PSYCH: Denies depression or anxiety. [facility] Past Medical History Medical History Colon cancer screening Lupus [place] Nausea RUQ pain Vasovagal syncope Anxiety Hypertension Surgical History Surgical History History of tubal ligation S/P placement of cardiac pacemaker History of cholecystectomy Social History Social History Smoking status: Never smoker Alcohol intake: never Substance use: never Substance use type: does not use Living arrangements: with family Gender identity (if verbalized by the patient): Female Spiritual care concerns: No Comments At time of signature, I have reviewed and agree with nursing past medical, surgical, social and family history unless otherwise noted. Please see nursing chart for further information. There is no relevant family history pertinent to the presenting complaint Exam Narrative: GENERAL: Ill-appearing, well-nourished, and in no acute distress. HEAD: Normocephalic, atraumatic. EYES: EOMI. No redness or drainage. Conjunctivae normal. ENT: Mucous membranes pink and moist. Nares clear. No rhinorrhea. TMs normal bilaterally. Throat normal. Uvula midline. NECK: Normal AROM. Supple. No lymphadenopathy. CHEST: No respiratory distress. Clear to auscultation. HEART: Regular rate and rhythm. No murmur appreciated. EXTREMITIES: Normal range of motion. No edema. SKIN: Warm, dry, no rash. Capillary refill normal. Normal skin turgor. NEURO: No focal deficits. Alert and oriented x3. Gait steady. PSYCH: Normal affect. No signs of depression or anxiety. Course Course Level of Care: Express Care Visit Vital Signs Vital signs: Vital Signs Temperature 99.7 F H 10/30/24 13:30 Pulse Rate 81 10/30/24 13:30 Respiratory Rate 16 10/30/24 13:30 Blood Pressure 122/83 10/30/24 13:30 Pulse Oximetry 100 10/30/24 13:30 Temperature 99.7 F H 10/30/24 13:30 Pulse Rate 81 10/30/24 13:30 Respiratory Rate 16 10/30/24 13:30 Blood Pressure 122/83 10/30/24 13:30 Pulse Oximetry 100 10/30/24 13:30 Reviewed MDM - URI/Sore Throat MDM Narrative Medical decision making narrative: Patient is positive for COVID-19. Influenza negative. Paxlovid is contraindicated with her Ranolazine. Will prescribe short course of prednisone for her asthma as well as a new albuterol inhaler and spacer and some benzonatate for cough. Anticipatory guidance given. ED precautions given. Differential Diagnosis Differential diagnosis: Likely upper respiratory infection, viral infection, influenza and other (COVID-19) Lab Data Attestation: I reviewed the patient's lab results. Labs: Lab Results 10/30/24 10/30/24 Range/Units 13:39 13:44 POC Influenza A Ag Negative (Negative) POC Influenza B Ag Negative (Negative) POC SARS CoV-2 Ag Positive (Negative) Critical Care Time Critical Care Time Critical Care Time: No Discharge Plan Discharge Clinical Impression: COVID-19 Patient Disposition: Home, Self-Care Condition: Stable Instructions: COVID-19 (Coronavirus Disease 2019) (ED) Additional Instructions: You have tested positive for COVID-19. Please take the Paxlovid as prescribed as well as the prednisone and benzonatate. Use albuterol inhaler and spacer as directed. Rest and stay hydrated. As discussed, please go to the ER immediately if symptoms worsen. Your blood pressure was elevated above 120/80 today at Urgent Care. This puts you above the threshold for follow up. Please schedule a followup visit with your personal physician as soon as possible, for further evaluation and treatme nt. Even blood pressure exceeding 120/80 may indicate pre-hypertension. Patient Language: Welsh Prescriptions: New benzonatate 200 mg capsule 200 mg PO TID PRN (Reason: cough) Qty: 20 0RF albuterol sulfate 90 mcg/actuation HFA aerosol inhaler 2 inh inhalation Q4-6H PRN (Reason: shortness of breath or wheezing) Qty: 8.5 0RF (DME) [employer] MDI Spacer Spacer See Rx Instructions .ROUTE .MEDSUPPLY Qty: 1 0RF Rx Instructions: As directed prednisone 20 mg tablet 40 mg PO DAILY 5 Days Qty: 10 0RF No Action albuterol sulfate 2.5 mg /3 mL (0.083 %) solution for nebulization metoprolol tartrate 100 mg tablet triamcinolone acetonide 0.1 % cream TOPICAL losartan 25 mg tablet 25 mg PO DAILY gabapentin 300 mg capsule 300 mg PO DAILY oxybutynin chloride 5 mg tablet ranolazine 500 mg tablet extended release 12 hr PO albuterol sulfate 90 mcg/actuation HFA aerosol inhaler 2 puff inhalation QID PRN (Reason: shortness of breath or wheezing) Qty: 6.7 0RF bupropion HCl 150 mg Tablet Sustained-Release 12 Hr 150 mg PO BID duloxetine 60 mg Capsule,Delayed Release(Dr/Ec) 60 mg PO DAILY hydrochlorothiazide 25 mg tablet 25 mg PO DAILY Follow-up/Referrals: Matilda,Lupe Paulino APRN [Primary Care Provider] - Stand Alone Forms: Work/School Release IP Time of Disposition: 14:03
== END 2024-10-30 14:14 | disposition home or self-care (01) ==
PROVIDERS: Emergency Provider Nurse Practitioner; PCP Nurse Practitioner Family
DX: U07.1 COVID-19 (principal); I10 Essential (primary) hypertension; Z95.0 Presence of cardiac pacemaker; F41.9 Anxiety disorder, unspecified
CPT/HCPCS: 87426; 87804; 99213; G0463

== ENCOUNTER 2024-12-24 13:35 | Emergency (ER) | payer BC, SELFPAY ==
--- NOTE | ~2024-12-24 | XR_ITS ---
EXAMINATION: XR abdomen/kub 1V DATE: 12/24/2024 14:16 INDICATION: Right flank pain. Hematuria. TECHNIQUE: A supine view of the abdomen on 2 radiographs was obtained. COMPARISON: Abdomen radiographs 09/22/2024, CT 06/26/2024 FINDINGS: There are no dilated loops of bowel. There are stents in the common iliac veins. There are phleboliths in the pelvis. There are two 3 mm calcifications overlying the left kidney that may be st ones. IMPRESSION: 1. Small calcifications overlying left kidney that may be stones. Reviewed, dictated and finalized at location L.
[2024-12-24 13:43] VITALS: BP 120/81; PULSE 71; RESP 16; TEMP 36.6; O2SAT 100
--- NOTE | 2024-12-24 14:00 | ED.BACK ---
HPI - Back Pain/Injury General Chief Complaint: Back Pain/Injury Stated Complaint: LOW BACK PAIN Time Seen by Provider: 12/24/24 13:35 Source: patient Mode of arrival: ambulatory Limitations: no limitations History of Present Illness HPI Narrative: Patient is a 49-year-old female who presents with right low back pain that started 2 nights ago. Patient has history of kidney stones and is concerned she may have kidney stone versus sciatica pain. 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 Patient took Tylenol with very little relief. Denies any numbness, tingling or weakness down leg. Denies any known blood in urine, urgency, frequency or burning with urination. Related Data Home Medications ?Medication ?Instructions ?Recorded ?Confirmed ?Last Taken ?Type duloxetine 60 mg capsule,delayed 60 mg PO DAILY 01/30/20 09/04/24 10/03/22 History release hydrochlorothiazide 25 mg tablet 25 mg PO DAILY 02/18/20 09/04/24 10/03/22 History gabapentin 300 mg capsule 300 mg PO DAILY 09/04/24 09/04/24 Unknown History Allergies Allergy/AdvReac Type Severity Reaction Status Date / Time Penicillins Allergy Intermediate Hives Verified 12/24/24 13:52 escitalopram (From Lexapro) Allergy Unknown Verified 12/24/24 13:52 Review of Systems Review of Systems: All systems reviewed & are unremarkable except as noted in HPI and below Constitutional: Constitutional: Denies body ache(s), Denies chills, Denies fatigue, Denies fever(s), Denies headache(s), Denies malaise and Denies weakness Eyes: Eyes: Denies blurry vision, Denies irritation and Denies loss of vision ENT: Denies otalgia, Denies headache(s), Denies nasal discharge, Denies sinus pain and Denies sore throat Cardiovascular: Cardiovascular: Denies chest pain, Denies irregular heart rhythm and Denies dyspnea Respiratory: Respiratory: Denies dyspnea Gastrointestinal: Gastrointestinal: Denies abdominal pain, Denies melena, Denies hematochezia, Denies diarrhea, Denies nausea and Denies vomiting Musculoskeletal: Musculoskeletal: Reports back pain, Denies myalgias and Denies arthralgias Integumentary/Breasts: Skin/Breast: Denies pruritus and Denies rash Neurologic: Denies headache(s), Denies loss of vision and Denies weakness Psychiatric: Psychiatric: Reports no additional psychiatric complaints Endocrine: Endocrine: Denies fatigue PMFSH Past Medical History Medical History Colon cancer screening Lupus [place] Nausea RUQ pain Vasovagal syncope Anxiety Hypertension Surgical History Surgical History History of tubal ligation S/P placement of cardiac pacemaker History of cholecystectomy Social History Social History Smoking status: Never smoker Alcohol intake: never Substance use: never Substance use type: does not use Living arrangements: with family Gender identity (if verbalized by the patient): Female Spiritual care concerns: No Comments At time of signature, agree with nursing past medical, surgical, social and family history. There is no relevant family history pertinent to the presenting complaint. Exam Const: General: cooperative, healthy appearing, comfortable, no acute distress and well nourished Nutritional Appearance: well nourished Orientation/consciousness: patient oriented x3 Limitations: no limitations HENMT: Head: normal to inspection, normocephalic and atraumatic Ears: hearing grossly normal bilaterally and external ears normal Face/Nose/Sinus: Normal external nose present, normal facial exam and face symmetric Face and sinus: normal facial exam and face symmetric Mouth: Yes lip normal Eyes: General: appearance normal, both eyes and all related structures Alignment and Position: alignment normal and position normal Periorbital: periorbital findings normal Eyelids: eyelids normal Pupils: Equal, round and reactive pupils present EOM: EOMs intact bilaterally Neck: Neck: normal visual inspection, full ROM and supple Chest: Chest palpation & inspection: normal inspection of the chest Resp: Effort & Inspection: normal respiratory effort and able to speak in complete sentences Auscultation: clear to auscultation bilaterally Cardio: Rate: regular rate Rhythm: regular rhythm Heart sounds: S1 normal heart sound present and S2 normal heart sound present GI: Inspection: normal to inspection Back/Spine/Pelvis: Back: CVA tenderness (Right) Thoracic/Lumbar Spine: thoracic and lumbar spine normal to inspection, paraspinal muscle tenderness on the right in the mid lumbar and in the lower lumbar, No thoracic spinal tenderness and No lumbar spinal tenderness Skin: General skin exam: normal color and no rashes or lesions noted Neuro: General: patient oriented x3 and moves all extremities Cranial nerves: Yes Equal, round and reactive pupils present Speech: normal speech Gait exam (Neuro): Normal gait present Extrem: General: normal to inspection, full ROM and no edema Psych: Appearance: grossly normal and well kempt Mental Status: mental status grossly normal Speech and movement: Normal speech and movement present Affect: normal affect Attitude: cooperative Thought process: Normal thought process present Course Course Emergency Course: Patient is aware of diagnosis, understands and agrees to treatment plan. Anticipatory guidance given. Patient agrees to follow-up as directed and is aware of reasons to seek care at the emergency department. Portions of this record may have been created with voice recognition software Level of Care: Express Care Visit Vital Signs Vital signs: Vital Signs Temperature 36.6 C 12/24/24 13:43 Pulse Rate 71 12/24/24 13:43 Respiratory Rate 16 12/24/24 13:43 Blood Pressure 120/81 12/24/24 13:43 Pulse Oximetry 100 12/24/24 13:43 Temperature 36.6 C 12/24/24 13:43 Pulse Rate 71 12/24/24 13:43 Respiratory Rate 16 12/24/24 13:43 Blood Pressure 120/81 12/24/24 13:43 Pulse Oximetry 100 12/24/24 13:43 Reviewed MDM - Back Pain/Injury MDM Narrative Medical decision making narrative: Pt well hydrated appearing, in no respiratory distress, hemodynamically stable. Recommend supportive care. The patient is stable at time of discharge the clinical impression was discussed and the patient was given the opportunity to ask questions, which were addressed as completely as possible given the information available at present. Anticipatory guidance and return to care precautions were discussed and the importance of primary care follow-up was stressed and encouraged. The patient voiced understanding of the plan, indications to return, and the need for follow-up. Exam findings show no acute concerns or changes Patient is appropriate for outpatient treatment and follow-up. Differential Diagnosis Differential diagnosis: Likely lumbar radiculopathy, sciatica, strain of lumbar region, renal colic, pyelonephritis and other (Kidney stone) Medical Records Attestation: I reviewed the patient's medical records. Lab Data Attestation: I reviewed the patient's lab results. Labs: Lab Results 12/24/24 Range/Units 14:12 POC Urine Color Yellow POC Urine Clarity Cloudy POC Urine pH 6.0 POC Ur Specif Strawn 1.020 POC Urine Protein 1+ (Negative) POC Ur Glucose (UA) Negative (Negative) POC Urine Ketones Trace (Negative) POC Urine Blood Negative (Negative) POC Urine Nitrite Negative (Negative) POC Urine Bilirubin 1+ (Negative) POC Urine Urobilinogen 1.0 POC U Leukocyte Esteras Trace (Negative) Imaging Data Radiologist's impression: EXAMINATION: XR abdomen/kub 1V DATE: 12/24/2024 14:16 INDICATION: Right flank pain. Hematuria. TECHNIQUE: A supine view of the abdomen on 2 radiographs was obtained. COMPARISON: Abdomen radiographs 09/22/2024, CT 06/26/2024 FINDINGS: There are no dilated loops of bowel. There are stents in the common iliac veins. There are phleboliths in the pelvis. There are two 3 mm calcifications overlying the left kidney that may be stones. IMPRESSION: 1. Small calcifications overlying left kidney that may be stones Discharge Plan Discharge Clinical Impression: Strain of lumbar region Qualifiers: Encounter type: initial encounter Qualified Code(s): S39.012A - Strain of muscle, fascia and tendon of lower back, initial encounter Patient Disposition: Home, Self-Care Condition: Stable Instructions: Acute Low Back Pain (ED) Additional Instructions: Please follow up with your Primary Care Doctor within 48-72 hours - call for an appointment. Walking and other gentle exercising several times a week has been shown to improve back pain; bed rest is not recommended. Take steroids in the morning with food, take muscle relaxers every 8 hours as needed for muscle spasm. do not drive or make any important decisions while on this medication for it can make you drowsy. Use lidocaine patches 12 hours on 12 hours off You may apply heat or cold to the area as needed. Contact your doctor or go to the emergency department if you develop problems with bladder or bowel function, weakness or loss of feeling in one or both of your legs, or any other serious concerns. Patient Language: Vincentian Prescriptions: New prednisone 20 mg tablet 40 mg PO DAILY 5 Days Qty: 10 0RF baclofen 10 mg tablet 10 mg PO TID 5 Days Qty: 15 0RF lidocaine 5 % adhesive patch,medicated 1 patch topical DAILY Qty: 15 0RF Rx Instructions: leave on most painful area for up to 12 hrs No Action benzonatate 200 mg capsule 200 mg PO TID PRN (Reason: cough) Qty: 20 0RF (DME) BreatheRite MDI Spacer Spacer See Rx Instructions .ROUTE .MEDSUPPLY Qty: 1 0RF Rx Instructions: As directed gabapentin 300 mg capsule 300 mg PO DAILY duloxetine 60 mg Capsule,Delayed Release(Dr/Ec) 60 mg PO DAILY hydrochlorothiazide 25 mg tablet 25 mg PO DAILY Follow-up/Referrals: Matilda,Lupe Paulino APRN [Primary Care Provider] - 3 Days Stand Alone Forms: Work/School Release IP Time of Disposition: 14:32
[2024-12-24 14:15] LABS: EDUAAPPEAR Cloudy; EDUABILI 1+ (Negative); EDUABLOOD Negative (Negative); EDUACOLOR1 Yellow; EDUAGLUCOSE Negative (Negative); EDUAKETONE Trace (Negative); EDUALEUKO Trace (Negative); EDUANITRATE Negative (Negative); EDUAPROTEIN 1+ (Negative)
== END 2024-12-24 14:36 | disposition home or self-care (01) ==
PROVIDERS: Emergency Provider Nurse Practitioner Family; PCP Nurse Practitioner Family
DX: S39.012A Strain of muscle, fascia and tendon of lower back, initial encounter (principal); X58.XXXA Exposure to other specified factors, initial encounter; Z87.442 Personal history of urinary calculi; I10 Essential (primary) hypertension
CPT/HCPCS: 74018; 81003; 87086; 99213; G0463

== ENCOUNTER 2025-01-06 15:05 | Emergency (ER) | payer BC, SELFPAY ==
[2025-01-06] VITALS (12 sets, daily range): BP systolic 124–135; BP diastolic 80–108; PULSE 86–106; RESP 13–19; TEMP 36.2; O2SAT 98–100
--- NOTE | ~2025-01-06 | XR_ITS ---
XR chest 2V Ordering provider: Paxton Gasca MD History: 49 years Female with . cp, body aches . Comparison: June 26, 2024 FINDINGS: MEDIASTINUM: The cardiac silhouette is not enlarged. Left bipolar pacemaker. LUNGS: No infiltrates, effusions or pneumothorax. Calcified granuloma in the left lower lobe area. OTHER: No free air under the diaphragm. Degenerative changes of the spine. IMPRESSION: No acute cardiopulmonary pathology. Reviewed, dictated and finalized at location A.
--- NOTE | ~2025-01-06 | CT_ITS ---
CTA chest PE protocol Ordering provider: Benny Tam MD History: 49 years Female with . Chest pain / FRANK , elevated dimer . Comparison: June 26, 2024 Technique: CT angiogram chest was performed following timed intravenous injection of contrast. Thin s lice axial images and reformatted coronal images were obtained. Three dimensional reformatted images of the chest were also obtained using a [employer] workstation. . Automated exposure control and iterati ve reconstruction technique were employed. The dose-length product was 435.75 mGy-cm. 100 mL Omnipaqu e 350 was given IV. Findings: PULMONARY ARTERIES: No pulmonary embolus. VISUALIZED THORACIC INLET: Normal. MEDIASTINUM: Aorta/coronary arteries: Mild atheromatous disease. Heart/other: The heart is not enlarged. Lymph nodes: No mediastinal or hilar adenopathy. Calcified left hilar lymph nodes. LUNGS: No pulmonary nodules or masses. No infiltrates or effusions. No pneumothorax. Dependent atelectatic changes. VISUALIZED UPPER ABDOMEN: 1.4 cm right adrenal adenoma. No follow-up advised unless clinically warran yosef. Minimal fullness of the right renal pelvis. Otherwise, the visualized upper abdomen is normal. MUSCULOSKELETAL: Soft tissues: The superficial soft tissues are normal. Bones: Age appropriate degenerative changes of the spine. Sclerotic area in T1 is unchanged. IMPRESSION: 1. No pulmonary embolism. 2. No acute cardiopulmonary pathology. 3. Right adrenal adenoma. No follow-up is advised unless clinically warranted. 4. Sclerotic area in T1 unchanged from previous examination. Reviewed, dictated and finalized at location A.
--- NOTE | 2025-01-06 15:09 | ECG_ITS ---
Test Date: 2025-01-06 15:15:19 Measurements Intervals Shirley Rate: 94 P: 64 OK: 154 QRS: 40 QRSD: 85 T: 37 QT: 371 QTc: 465 Interpretive Statements SINUS RHYTHM WITH OCCASIONAL SUPRAVENTRICULAR PREMATURE COMPLEXES No previous ECG available for comparison Electronically Signed On 01-07-2025 10:36:58 CDT by Petros Mota M.D.
[2025-01-06 15:32] LABS: Basophils Percent Auto 0.3 % (0.2-1.2); Eosinophils Absolute Auto 0.1 K/mm3 (0-0.3); Eosinophils Percent Auto 1.4 % (0-4.4); Hematocrit 47.2 % (37.0-47.0); Hemoglobin 16.9 g/dL (12.0-15.0); Immature Granulocyte Absolute 0.02 K/mm3 (0.00-0.031); Immature Granulocyte Percent A 0.2 % (0-0.5); Lymphocytes Absolute Auto 2.51 K/mm3 (0.9-3.2); Lymphocytes Percent Auto 25.1 % (18.3-44.2); Mean Corpuscular HGB Conc 35.8 g/dl (32-36); Mean Corpuscular Hemoglobin 32.4 pg (26-34); Mean Corpuscular Volume 90.4 fl (80-100); Mean Platelet Volume 9.9 fl (7.4-10.4); Monocytes Absolute Auto 1.1 K/mm3 (0.1-0.6); Monocytes Percent Auto 10.8 % (2.6-8.5); Neutrophils Absolute Auto 6.2 K/mm3 (1.3-6.7); Neutrophils Percent Auto 62.2 % (45.5-73.1); Platelet Count Result 269 k/mm3 (150-375); Red Blood Count 5.22 M/mm3 (4.2-5.4); Red Cell Distribution Width 13.1 % (11.5-14.5)
[2025-01-06 15:43] LABS: Alanine Aminotransferase 59 U/L (6-35); Albumin Level 4.6 g/dL (3.5-5.1); Alkaline Phosphatase 90 U/L (38-126); Anion Gap 12 mmol/L (4-12); Aspartate Amino Transferase 51 U/L (14-36); Bilirubin,Total 1.6 mg/dL (0.2-1.3); Blood Urea Nitrogen 16 mg/dL (7-17); Calcium 9.5 mg/dL (8.4-10.2); Carbon Dioxide 27 mmol/L (22-30); Chloride 98 mmol/L (98-107); Estimated CRCL calculation 64 ml/min; Estimated Glomerular Filt Rate 53; Glucose 113 mg/dL (65-110); Lipase 82 U/L (23-300); Potassium 2.9 mmol/L (3.4-5.0); Sodium 137 mmol/L (137-145)
[2025-01-06] MEDS: SODIUM CHLORIDE 0.9% IV 2,000 ML 999 ML IV CONT (15:45)
[2025-01-06] MEDS: KETOROLAC 15 MG/ML VIAL (*BKC) IV PUSH (15:45)
[2025-01-06 15:50] LABS: Prothrombin Time 13.4 Seconds (11.1-14.7)
[2025-01-06 15:51] LABS: Partial Thromboplastin Time 28.1 Seconds (22.3-36.8)
[2025-01-06 15:54] LABS: NT Pro B Type Natriuretic Pept 189 pg/mL (19.9-100); Troponin I < 0.012 ng/mL (0.000-0.034)
[2025-01-06 16:04] LABS: D Dimer 0.55 ug/mL (<0.48)
[2025-01-06] MEDS: POTASSIUM CHLORIDE 20 MEQ PACKET (FOR LIQUID) 40 MEQ PO (16:15)
--- OUTSIDE RECORDS SUMMARY | 2025-01-06 16:18 | XMS_ITS | Referral Summary ---
Author Organization [facility] Address [address] [place] [address] Care Team Providers Care Cyber Forensic Specialist Name Role Phone Venkatesh Carbone MD Unavailable [phone] Lupe Grey NP Primary Care Provider [phone] Encounters Date Type Department Care Team Description 01/06/2025 2:45 PM CDT Office Visit [facility] at [address] [address] Dot Tarango NP Tachycardia (Primary Dx); Nausea; Dizziness from Last 3 Months Allergies Active Allergy Reactions Criticality Noted Date Comments Penicillins Rash,Swelling,Hives High 10/10/2017 Medications ALPRAZolam (XANAX) 0.25 mg tablet Take 1 tablet by mouth nightly as needed 06/29/20 19 Active buPROPion SR (WELLBUTRIN SR) 150 mg 12 hr tablet Take 1 tablet (150 mg total) by mouth 2 (two) times a day 0 05/24/[address] (CYMBALTA) 60 mg capsule Take 1 capsule (60 mg total) by mouth daily 0 06/29/20 19 Active hydroCHLOROthiazid e (MICROZIDE) 12.5 mg capsule Take 1 capsule (12.5 mg total) by mouth daily Active metoprolol (LOPRESSOR) 25 mg tablet Take 0.5 tablets (12.5 mg total) by mouth 2 (two) times a day 30 tablet 11 08/17/20 19 Active albuterol HFA (Ventolin HFA) 90 mcg/actuation inhalerIndications :Viral upper respiratory tract infection Inhale 2 puffs every 4 (four) hours as needed for wheezing or shortness of breath 8 g 02/13/20 21 Active ondansetron ODT (ZOFRAN-ODT) 4 mg disintegrating tablet Take 1 tablet (4 mg total) by mouth every 8 (eight) hours as needed for nausea or vomiting 20 tablet 02/16/20 21 Active hydrocortisone 1 % creamIndications:S kin Inflammation Apply 1 Application topically 2 (two) times a day 30 g 02/28/20 24 Active mometasone-formote rol (DULERA 100) 100-5 mcg/actuation inhaler Inhale 2 puffs 2 (two) times a day Rinse mouth with water after use. Do not swallow. 1 each 05/31/20 24 025 Active albuterol 2.5 mg /3 mL (0.083 %) nebulizer solution Take 3 mL (2.5 mg total) by nebulization every 6 (six) hours as needed for wheezing 75 mL 06/13/20 24 025 Active semaglutide (Wegovy) 0.25 mg/0.5 mL auto-injector inject 0.5 ml (0.25 mg) by subcutaneous injection every 7 days. 06/07/20 24 Active semaglutide (Ozempic) 0.25 mg or 0.5 mg (2 mg/3 mL) pen injector injection INJECT 0.25MG UNDER THE SKIN EVERY WEEK FOR 42 DAYS 12/26/19 23 Active semaglutide (Ozempic) 0.25 mg or 0.5 mg(2 mg/1.5 mL) pen injector injection Inject by subcutaneous route for 28 days. 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 08/15/2023 Rheumatoid arthritis 02/15/2021 COVID-19 virus infection 02/15/2021 Exposure to SARS-associated coronavirus 07/05/20 20 Supraventricular tachycardia 07/30/2019 Sleep apnea 10/10/2017 Sick sinus syndrome 01/27/2014 Palpitations 05/10/2013 Syncope 06/17/2008 Personal history of nicotine dependence 02/29/20 08 Essential (primary) hypertension 02/25/2008 Presence of cardiac pacemaker 10/22/2006 Immunizations Immunization Administration Dates Next Due Influenza, Quadrivalent, Spl it, Preservative Free, Intramuscular 08/17/2019 Social History Tobacco Use Types Packs/Day Years Used Date Smoking Tobacco: Former Cigarettes Q uit: 2017 Smokeless Tobacco: Never Tobacco Cessation:Counseling Given: Not Answered Alcohol Use Standard Drinks/Week Comments Never 0 (1 standard drink = 0.6 oz pur e alcohol) AUDIT-C Answer Date Recorded Frequency of Alcohol Consumption Not on file 08/21/2023 Q2: How many drinks containi ng alcohol do you have on a typical day when you are drinking? Patient does not drink Frequency of Binge Drinking Not on file 06/2023 Personal Safety Answer Date Recorded Have you ever been in or are you currently in a harmful physical or emotional relationship or is someone making you feel afraid or unsafe? 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 Gender Identity Not on file Sexual Orientation Not on file Last Filed Vital Signs Vital Sign Reading Time Taken Comments Blood Pressure 112/74 01/06/2025 2:37 PM CDT Pulse 151 01/06/2025 2:37 PM CDT Temperature 36.8 C (98.2 F) 01/06/2025 2:13 PM CDT Respiratory Rate 20 01/06/2025 2:13 PM CDT Oxygen Saturation 98% 01/06/2025 2:13 PM CDT Inhaled Oxygen Concentration - - Weight 106.1 kg (234 lb) 01/06/2025 2:13 PM CDT Height 180.3 cm (5' 11 ) 01/06/2025 2:13 PM CDT Body Mass Index 32.64 01/06/2025 2:13 PM CDT Plan of Treatment Not on file Medical Devices Implanted Type Area Cell Biology Scientist Device Identifier Shelf Expiration Date Model / Serial / Lot [employer] Stent Venous Wall [id number] - [id number] Implanted:Qty: 1 on 08/21/2023 by Finn Johnson MD at [facility] [employer] [facility] 07/29/2024 [id number] / / [id number] [place] [employer] Stent Venous Wall [id number] - [id number] Implanted:Qty: 1 on 08/21/2023 by Finn Johnson MD at [facility] [employer] [facility] 10/22/2024 [id number] / / [id number] Insurance [place] [employer] [facility] Advance Directives For more information, please contact: [phone] * Full Code (Latest Code Status on File) Date Activated Date Inactivated Comments 08/21/2023 2:40 PM 08/21/2023 8:52 PM * Full Code Date Activated Date Inactivated Comments 08/17/2019 9:45 AM 08/17/2019 2:34 PM Care Teams Cyber Forensic Specialist Relationship Specialty [place] [address] [address] [address] PCP - General Family Medicine 03/23/24 [place] [id number] [address] Consulting Physician Cardiology 08/17/19
--- OUTSIDE RECORDS SUMMARY | 2025-01-06 16:18 | XMS_ITS | Clinical Summary ---
Author Organization [facility] Address [address] [place] [address] Care Team Providers Care Finisher Machine Name Role Phone Venkatesh Carbone MD Unavailable [phone] Lupe Grey NP Primary Care Provider [phone] Allergies Active Allergy Reactions Criticality Noted Date [...] after use. Do not swallow. 1 each 11 05/31/20 24 025 Active albuterol 2.5 mg [...] hypertension 02/25/2008 Presence of cardiac pacemaker 10/22/2006 Encounters Date Type Department Care Team Description 01/06/2025 2:45 PM CDT Office Visit [facility] at [address] [address] Dot Tarango NP Tachycardia (Primary Dx); Nausea; Dizziness from Last 3 Months Immunizations Immunization Administration Dates Next Due Influenza, Quadrivalent, Spl it, Preservative Free, Intramuscular 08/17/2019 Surgical History Surgery Date Site/Laterality Comments INSERT / REPLACE / REMOVE PACEMAKER CARDIAC CATHETERIZATION TUBAL LIGATION HYSTERECTOMY 08/13/2022 Medical History Medical History Date Comments Hypertension Depression Varicose vein of leg Anxiety SSS (sick sinus syndrome) (HCC) Syncope LALA (dyspnea on exertion) Sleep apnea 10/10/2017 Family History Medical History Relation Name Comments Cancer Brother Asthma Father Emphysema Father Hypertension Father Cancer Maternal Grandfather Diabetes Mother Hypertension Mother Thyroid disease Mother Lung disease Paternal Grandfather Relation Name Status Comments Brother Father Maternal Grandfather Mother Paternal Grandfather Social History Tobacco Use Types Packs/Day Years [...] on file 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 Gender Identity Not on file Sexual Orientation Not on file Obstetrics History Last Filed Vital Signs Vital Sign Reading [...] 01/06/2025 2:13 PM CDT Plan of Treatment Health Maintenance Due Date Last Done Comments Breast Cancer Screening-Mammogram 1974 Colon Cancer Screening-Colonoscopy 1974 Depression Screening 1974 Hepatitis C Screening 1974 DTaP/Tdap/Td Vaccine (1 - Tdap) 1985 Hepatitis B Screening 1992 Regular Well Visit/Exam 18-64 1992 Pneumococcal vaccine <65 (1 of 2 - PCV) 1993 Zoster Vaccine (1 of 2) 2024 Influenza Vaccine (#1) 2024 2, 08/17/2019, 08/16/2019, Additional history exists Medical Devices Implanted Type Area Convertible Top Installer Device Identifier Shelf Expiration Date Model / Serial / Lot [place] [employer] Stent Venous Wall [id number] - [id number] Implanted:Qty: 1 on 08/21/2023 by Finn Johnson MD at [facility] [employer] 07/29/2024 [id number] / / [id number] [place] [employer]bal Stent Venous Wall [id number] - [id number] Implanted:Qty: 1 on 08/21/2023 by Finn Johnson MD at [facility] [employer] 10/22/2024 [id number] / / [id number] Insurance [facility] [employer] Advance Directives For more information, please contact: [phone] * Full Code (Latest Code Status on File) Date Activated Date Inactivated Comments 08/21/2023 2:40 PM 08/21/2023 8:52 PM * Full Code Date Activated Date Inactivated Comments 08/17/2019 9:45 AM 08/17/2019 2:34 PM Care Teams Finisher Machine Relationship Specialty [place] [address] [address] [address] PCP - General Family Medicine 03/23/24 [place] [address] [address] [address] Consulting Physician Cardiology 08/17/19
--- OUTSIDE RECORDS SUMMARY | 2025-01-06 16:18 | XMS_ITS | Encounter Summary ---
Author Organization [facility] Healthcare Address [address] [place] [address] Care Team Providers Care Neurology Specialist Name Role Phone Venkatesh Carbone MD Unavailable [phone] Lupe Grey NP Primary Care Provider [phone] Reason for Visit * Reason Comments Vomiting Able to hold down fl uids. Generalized Body Aches Symptoms for two days. Dizziness Shortness of Breath Hx of pacemaker. 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 Patient ID: Remedios Lipscomb is a 49 y.o. female followed by Lupe Grey NP Chief Complaint Patient presents with Vomiting Able to hold down fluids. Generalized Body Aches Symptoms for two days. Dizziness Shortness of Breath Hx of pacemaker. Patient presents to the clinic with reports of vomiting, shortness of breath even at rest, dizziness, and body aches for 2 days and worsening. Denies fevers, sharp chest pain, history of DVT, historyof GA, and abdomen pain. She does report a pressure in her chest. She has taken no OTC medications for her symptoms. She has a history of a pacemaker in 2003 for vasovagal syncope. Review of Systems Constitutional: Negative for chills, fatigue and fever. HENT: Negative for congestion, ear pain, postnasal drip, rhinorrhea, sinus pressure and sore throat. Respiratory: Positive for shortness of breath. Negative for cough and wheezing. Cardiovascular: Positive for palpitations. Negative for chest pain. Gastrointestinal: Positive for nausea and vomiting. Musculoskeletal: Positive for myalgias. Neurological: Positive for dizziness. Negative for headaches. Vitals: 01/06/25 1413 01/06/25 1437 BP: 116/74 112/74 Pulse: (!) 130 (!) 151 Resp: 20 Temp: 36.8 ??C (98.2 ??F) TempSrc: Temporal SpO2: 98% Weight: 106.1 kg (234 lb) Height: 180.3 cm (5' 11 ) Physical Exam Vitals reviewed. Constitutional: General: She is not in acute distress. Appearance: Normal appearance. She is ill-appearing. HENT: Head: Normocephalic. Comments: Cheeks a very red/flushed in appearance Right Ear: Tympanic membrane, ear canal and external ear normal. No middle ear effusion. Tympanic membrane is not erythematous or bulging. Left Ear: Tympanic membrane, ear canal and external ear normal. No middle ear effusion. Tympanic membrane is not erythematous or bulging. Nose: No congestion or rhinorrhea. Mouth/Throat: Lips: [place]. Mouth: Mucous membranes are moist. Pharynx: Uvula midline. No pharyngeal swelling, oropharyngeal exudate or posterior oropharyngeal erythema. Cardiovascular: Rate and Rhythm: Regular rhythm. Tachycardia present. Pulmonary: Effort: Pulmonary effort is normal. Tachypnea present. No respiratory distress. Breath sounds: Normal breath sounds. No decreased breath sounds or wheezing. Lymphadenopathy: Cervical: No cervical adenopathy. Skin: General: Skin is warm. Neurological: Mental Status: She is oriented to person, place, and time. Psychiatric: Behavior: Behavior is cooperative. Diagnoses and all orders for this visit: Tachycardia (Primary) Nausea - ondansetron ODT (ZOFRAN-ODT) disintegrating tablet 4 mg Dizziness No orders of the defined types were placed in this encounter. Assessment/Plan --Need to send patient to ER for further assessment to rule out possible GA versus PE versus blood clot. Patient verbally states that she is not safe to drive herself. EMS was called and transported patient to ER. Disposition Treatment plan including expectations, follow up, and return precautions discussed with patient/parent, verbalizes understanding. Medication dosage, use, and potential adverse reactions discussed with patient/parent. Advised to follow up with PCP if symptoms do not resolve as expected or sooner if condition worsens. Discussed Signs/symptoms warranting ER evaluation including worsening fever, increased shortness ofbreath, chest pain, severe N/V/D, or any other worrisome symptoms Patient and/or guardian was given an opportunity to ask questions, questions answered. Patient Education --Sent to ER via EMS Dot Tarango NP This office note has been partially dictated using [employer] software, and as a result portions of the record may have been created with this software. Occasional wrong-word or '[id number]-c-[id number]' substitutions may have occurred due to the inherent limitations of voice recognition software. Read the chartcarefully and recognize, using context, where substitutions have occurred. Cosigned by Hao Espinoza MD at 01/06/2025 2:56 PM CDT documented in this encounter Plan of Treatment Not on file documented as of this encounter Visit Diagnoses Diagnosis Tachycardia- Primary Unspecified tachycardia Nausea Nausea alone Dizziness Dizziness and giddiness documented in this encounter Administered Medications Inactive Administered Medications - up to 3 most recent administrations Medication Order MAR Action Action Date Dose Rate Site ondansetron ODT (ZOFRAN-ODT) disintegrating tablet 4 mg 4 mg, oral, Once, On Lina 01/06/25 at 1515, For 1 dose, If administering by mouth, place tablet on tongue and allow to dissolve.Indications:Nausea Given 01/06/2025 3:54 PM CDT 4 mg documented in this encounter Orders Medications Ordered That Dameon ht Not Have Been Administered Count Last Ordered Date First Ordered Date ondansetron ODT (ZOFRAN-ODT) disintegrating tablet 4 mg 1 01/06/2025 documented in this encounter Care Teams Neurology Specialist Relationship Specialty [place] [address] [address] PCP - General Family Medicine 03/23/24 [place] [address] [address] Consulting Physician Cardiology 08/17/19 documented as of this encounter
--- OUTSIDE RECORDS SUMMARY | 2025-01-06 16:19 | XMS_ITS | Clinical Summary ---
Author Organization [facility] Address [address] [place] [address] Care Team Providers Care Row Boss Hoeing Name Role Phone Laverne Oviedo MD Primary Care Provider Allergies Active Allergy Reactions Criticality Noted Date Comments Penicillins Rash Low 02/08/2020 Medications ondansetron 4 MG disintegrating tablet Take 1 tablet (4 mg total) by mouth every 8 (eight) hours as needed. 10 tablet 0 Active HYDROcodone-acetami nophen 5-325 MG tabletIndications:A cute Pain < 7 Day Supply Take 1 tablet by mouth every 6 (six) hours as needed. Indications: Acute Pain < 7 Day Supply 14 tablet 0 Active methylPREDNISolone, ESTELITA, 4 MG tabletIndications:L ow back pain,Sciatica Use per packet instructions . Can take 6 TABLETS ON DAY ONE, 5 TABLETS DAY TWO, 4 TABLETS DAY THREE, 3 TABLETS DAY FOUR, 2 TABLETS DAY FIVE, AND 1 TABLET DAY SIX 1 each 1 Active diazePAM 2 MG tabletIndications:L ow back pain,Sciatica Take 1 tablet (2 mg total) by mouth every 8 (eight) hours as needed (severe muscle spasms/pain) . 10 tablet 1 Active lidocaine 4 % patchIndications:Lo w back pain,Sciatica Place 1 patch onto the skin daily. Remove & Discard patch within 12 hours or as directed by 7 patch 1 Active Family History Medical History Relation Comments Diabetes Mother Relation Status Comments Father Alive Mother Alive Social History Tobacco Use Types Packs/Day Years Used Date Smoking Tobacco: Former Smokeless Tobacco: Never Alcohol Use Standard Drinks/Week Comments Never 0 (1 standard drink = 0.6 oz pur e alcohol) AUDIT-C Answer Date Recorded Frequency of Alcohol Consumption Never 02/08/2020 Average Number of Drinks Not on file 020 Frequency of Binge Drinking Not on file 01/12 Comments Unknown Sex and Gender Information Value Date Recorded Sex Assigned at Not on file Legal Sex Female 9:18 PM CDT Gender Identity Not on file Sexual Orientation Not on file Last Filed Vital Signs Vital Sign Reading Time Taken Comments Blood Pressure 131/89 07/17/2021 3:51 PM CDT Pulse 91 07/17/2021 3:51 PM CDT Temperature 36.6 C (97.8 F) 07/17/2021 1:37 PM CDT Respiratory Rate 18 07/17/2021 3:51 PM CDT Oxygen Saturation 97% 07/17/2021 3:51 PM CDT Inhaled Oxygen Concentration - - Weight 103.5 kg (228 lb 2.8 oz) 07/17/2021 1:37 PM CDT Height 180.3 cm (5' 11 ) 07/17/2021 1:37 PM CDT Body Mass Index 31.82 07/17/2021 1:37 PM CDT Plan of Treatment Health Maintenance Due Date Last Done Comments Cervical Cancer Screening Pa p Smear (Age 30 to 64) Every 3 Years 1974 Colorectal Cancer Screening Colonoscopy (10 Years) 1974 Annual Physical 1977 Hepatitis C 1992 DTaP, Tdap and Td Vaccines ( 1 - Tdap) 1993 Hepatitis B Vaccines (1 of 3 - 19+ 3-dose series) 1993 Cervical Cancer Screening Pa p with HPV Testing (Age 30 to 64) Every 5 Years 2004 Cervical Cancer Screening with HPV 2004 Mammogram Screening 2014 Zoster Vaccines (1 of 2) 2024 COVID-19 Vaccine (2023-2 5 season) 2024 Influenza Adult (#1) 2024 08/16/2019 Meningococcal B Vaccine Aged Out No l onger eligible based on patient's age to complete this topic Meningococcal Vaccine Aged Out No shanita tristan eligible based on patient's age to complete this topic Pneumococcal Vaccine: Pediat rics (0 to 5 Years) and At-Risk Patients (6 to 64 Years) Aged Out No longer eligi ble based on patient's age to complete this topic RSV Immunizations Under 20 Months Aged Out No longer eligible based on patient's age to complete this [place] [address] Care Teams Row Boss Hoeing Relationship Specialty Start Date End Date Laverne Oviedo MD [address] [place] [address] PCP - General OBGYN 02/08/20
--- OUTSIDE RECORDS SUMMARY | 2025-01-06 16:19 | XMS_ITS | Clinical Summary ---
Author Organization [facility] Address [address] [place] [address] Phone Care Team Providers Care Tailor Women'S Garment Alteration Name Role Phone Minerva Richardson NP Primary Care Provider Unavail able Allergies Active Allergy Reactions Criticality Noted Date Comments Penicillins Hives High 02/08/2021 Medications BUPROPION HCL ORAL Take 150 mg by mouth 2 times daily. Active duloxetine HCl (DULOXETINE ORAL) Take 60 mg by mouth daily. Active methocarbamoL (ROBAXIN) 750 mg tablet Take 750 mg by mouth 4 times daily. Active HYDROCHLOROTHIA ZIDE ORAL Take 1 Tablet by mouth daily. Active metoprolol succinate (TOPROL XL) 100 mg Extended Release 24 hour tablet Take 100 mg by mouth daily. Active HYDROcodone-jakob taminophen (NORCO) 5-325 mg tabletIndicatio ns:Postoperativ e pain Take 1 Tablet by mouth every 4 hours as needed for moderate pain. Max Daily Amount: 6 Tablets 42 Tablet 07/09/2021 4:34 PM CDT 1 Active methylPREDNISol one (MEDROL DOSPACK) 4 mg Tablets, Dose PackIndications :S/P cervical spinal fusion Take as directed 21 Tablet 2 Active meloxicam (MOBIC) 15 mg tablet TAKE 1 TABLET(15 MG) BY MOUTH DAILY 30 Tablet 2 Active semaglutide, weight loss, (Wegovy) 0.25 mg/0.5 mL Pen Injector Inject 0.5 mL (0.25 mg) by subcutaneous injection every 7 days. 2 mL 4 Active Active Problems No known active problems Encounters Date Type Department Care Team Description 12/29/2024 External Device Data ST[facility] ABSTRACTION Provider, Abstract 12/21/2024 External Device Data ST[facility] ABSTRACTION Provider, Abstract 12/21/2024 External Device Data ST[facility] ABSTRACTION Provider, Abstract 12/18/2024 External Device Data ST[facility] ABSTRACTION Provider, Abstract 12/17/2024 External Device Data ST[facility] ABSTRACTION Provider, Abstract 12/15/2024 External Device Data STL ABSTRACTION Provider, Abstract 11/30/2024 External Device Data STL ABSTRACTION Provider, Abstract 10/19/2024 External Device Data STL ABSTRACTION Provider, Abstract from Last 3 Months Family History Medical History Relation Name Comments Hypertension Brother Prostate Cancer Brother Hypertension Father Breast Cancer Maternal Grandmother Hypertension Maternal Grandmother Hypertension Mother Hypertension Paternal Grandmother Relation Name Status Comments Brother Father Maternal Grandmother Mother Paternal Grandmother Social History Tobacco Use Types Packs/Day Years Used Date Smoking Tobacco: Former Cigarettes Q uit: 2010 Smokeless Tobacco: Never Alcohol Use Standard Drinks/Week Comments Never 0 (1 standard drink = 0.6 oz pur e alcohol) Comments No Sex and Gender Information Value Date Recorded Sex Assigned at Not on file Legal Sex Female 1:29 PM CDT Gender Identity Not on file Sexual Orientation Not on file 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 Not on file Not on file Last Filed Vital Signs Vital Sign Reading Time Taken Comments Blood Pressure 107/78 11/21/2021 10:43 AM EYELET ROW MARKER Pulse 86 08/29/2021 2:41 PM EYELET ROW MARKER Temperature 36.8 C (98.2 F) 11/21/2021 10:43 AM EYELET ROW MARKER Respiratory Rate 16 07/09/2021 4:08 PM CDT Oxygen Saturation 95% 07/09/2021 4:08 PM CDT Inhaled Oxygen Concentration - - Weight 98.9 kg (218 lb) 11/21/2021 10:43 AM EYELET ROW MARKER Height 182.9 cm (6') 11/21/2021 10:43 AM EYELET ROW MARKER Body Mass Index 29.57 11/21/2021 10:43 AM EYELET ROW MARKER Plan of Treatment Health Maintenance Due Date Last Done Comments DTAP/TDAP/TD VACCINES (1 - Tdap) 1993 HEPATITIS B VACCINES (1 of 3 - 19+ 3-dose series) 1993 HPV/Cotest (21-29) 1995 CERVICAL CANCER SCREENING 2004 HPV/Cotest (30-65) 2004 PAP SMEAR 2004 BREAST CANCER SCREENING 2014 COLORECTAL SCREENING 2019 Colorectal Cancer Screening 2019 FIT-DNA Q 3 years 2019 FIT/FOBT Q 1 year 2019 Flex Sig/CT Colonography Q 5 years 2019 ZOSTER VACCINE (1 of 2) 2024 INFLUENZA VACCINE (#1) 2024 2, 08/17/2019, 08/16/2019 Medical Devices Implanted Type Area Asphalt Mixer Device Identifier Shelf Expiration Date Model / Serial / Lot Triad Cc Allograft Implanted:Qt y: 1 on 07/09/2021 by Edis Veronica MD at [facility] Bone N/A: Spine Cervical Anterior [employer] 11/08/2025 [id number] / [id number] / Hemostatic Surgiflo 8ml W/ Thrombin 2994 - Old - [id number] Implanted:Qt y: 1 on 07/09/2021 by Edis Veronica MD at [facility] Hemostatic N/A: Spine Cervical Anterior [employer] [id number] 11/12/2022 2994 / / [id number] Acp 1.6v, 42mm, 2 Level Plate Implanted:Qt y: 1 on 07/09/2021 by Edis Veronica MD at [facility] Plate N/A: Spine Cervical Anterior [employer] [id number] / LOAD 2 9 / STERILIZED 06-29-21 Description:All Nuvasive cer vical hardware was processed on requisition, [id number]. Acp Screw, 3.5 X 15 Mm Self Drilling Jailyn Implanted:Qt y: 6 on 07/09/2021 by Edis Veronica MD at [facility] Screw N/A: Spine Cervical Anterior [employer] [id number] / LOAD 2 9 / STERILIZED 06-29-21 Allograft Triad Cc Cerv [id number] - [id number] Implanted:Qt y: 1 on 07/09/2021 by Edis Veronica MD at [facility] Tissue N/A: Spine Cervical Anterior [employer] 01/28/2026 [id number] / [id number] / Pacemaker Insurance BCBS BLUE ACCESS/TRUE BLUE PPO RX [employer] Commercial Care Teams Tailor Women'S Garment Alteration Relationship Specialty Start Date End Date Minerva Richardson NP PCP - General NURSE PRACTITIONER 12/27/20
--- OUTSIDE RECORDS SUMMARY | 2025-01-06 16:19 | XMS_ITS | Clinical Summary ---
Author Organization [facility] Address [address] [place] [address] Care Team Providers Care Lan Engineer Name Role Phone Hayley Fonseca APRN-MANAGER ASSISTED LIVING Primary Care Provider [phone] Source Comments [facility],non-owned Affiliates and Associated Physician Practices is amultiple site organization consisting of ambulatory clinics and hospital sitesin [place], [place], [place] and [place]. This disclosure is being madepursuant to the Care Everywhere program and may not contain all information available regarding this patient. Last updated 18.[facility] Allergies Active Allergy Reactions Criticality Noted Date Comments Penicillins Rash High 06/26/2022 Medications * Be aware that medications may not be up to date on this document. Alwaysverify current medications with the patient. Medication Sig Dispensed Refills Start Date End Date Status BUPROPION HCL ER, XL, PO Take 150 mg by mouth 2 times daily Active DULoxetine (Cymbalta) 60 MG capsule Take 60 mg by mouth once daily Active metoprolol succinate XL 24hr (Toprol XL) 100 MG tablet Take 100 mg by mouth once daily Active Active Problems Problem Noted Date Diagnosed Date Anxiety 07/23/2022 DAVILA (nonalcoholic steatohepatitis) 05/31/2022 Overview (07/24/2022): CT 02/2021: Fatty liver US : Fatty liver 07/23/22 liver biopsy: DAVILA, stage 2 dwp Hyperlipidemia 05/31/2022 Overview (11/21/2022): 11/05/22 study labs: t chol 212, LDLc 133, HDLc 59, TG 92 Rheumatoid arthritis 02/15/2021 [facility]DC current use of anticoagulant therapy 1 10/30/2018 Supraventricular tachycardia 07/30/2019 Sleep apnea 10/10/2017 Sick sinus syndrome 01/27/2014 Essential (primary) hypertension 02/25/2008 Presence of cardiac pacemaker 10/22/2006 Resolved Problems Problem Noted Date Diagnosed Date Resolved Date Pre-op testing 07/23/2022 07/23/2022 Booth's neuroma of right foot 01/07/2020 07/23/2022 Social History Tobacco Use Types Packs/Day Years Used Date Smoking Tobacco: Never Smokeless Tobacco: Never Alcohol Use Standard Drinks/Week Comments Not Currently 0 (1 standard drink = 0.6 oz pur e alcohol) Sex and Gender Information Value Date Recorded Sex Assigned at Not on file Gender Identity Not on file Sexual Orientation Not on file Last Filed Vital Signs Vital Sign Reading Time Taken Comments Blood Pressure 136/99 07/23/2022 4:00 PM CDT Pulse 60 07/23/2022 4:00 PM CDT Temperature 36.1 C (97 F) 07/23/2022 2:21 PM CDT Respiratory Rate 15 07/23/2022 4:00 PM CDT Oxygen Saturation 97% 07/23/2022 4:00 PM CDT Inhaled Oxygen Concentration - - Weight 100.2 kg (220 lb 14.4 oz) 2021 12:58 PM CDT Height 180.3 cm (5' 11 ) 07/23/2022 12: 58 PM CDT Body Mass Index 30.81 07/23/2022 12:58 PM CDT Plan of Treatment Health Maintenance Due Date Last Done Comments COLOGUARD (AGES 45-75) - COL ON CA SCREENING 1974 COLON MONITORING 1974 COLONOSCOPY - COLON CA SCREENING 1974 CT COLONOGRAPHY - COLON CA SCREENING 1974 Colorectal Cancer Screening 1974 FIT - COLON CA SCREENING 1974 FLEX SIG - COLON CA SCREENING 1974 LIPID TESTING 1974 MAMMOGRAM 1974 PAP SMEAR 1974 HIV SCREENING 1989 HEPATITIS C SCREENING 03/09/1992 DTAP/TDAP/TD VACCINES (1 - Tdap) 1993 HEPATITIS B VACCINE (1 of 3 - 19+ 3-dose series) 1993 PNEUMOCOCCAL VACCINE 50+ (1 of 1 - PCV) 2024 ZOSTER VACCINE (1 of 2) 2024 COVID-19 VACCINE (1 - 2023-2 5 season) 2024 INFLUENZA VACCINE (#1) 2024 9, 08/16/2019 DEPRESSION SCREENING 10/13/2024 SCREENING FOR DIABETES 07/23/2025 07/23/2022 HIB VACCINE Aged Out No longer eligi ble based on patient's age to complete this topic HPV VACCINE Aged Out No longer eligi ble based on patient's age to complete this topic MENINGOCOCCAL (Group B) VACCINE SHARED DECISION-MAKING Aged Out No longer eligible based on patient's age to complete this topic MENINGOCOCCAL GROUPS A/C/Y/W VACCINE Aged Out No longer eligible b ased on patient's age to complete this topic Procedures Procedure Name Priority Date/Time Associated Diagnosis Comments COMPREHENSIVE METABOLIC PANEL STAT 07/23/2022 1:16 PM CDT Nonalcoholic fatty liver disease from Last 3 Months or Most Recently Relevant to Health Maintenance Results * (ABNORMAL) COMPREHENSIVE METABOLIC PANEL (07/23/2022 1:16 PM CDT) BUN 11 7 - 26 mg/dL 07/23/2022 1:51 PM [facility] Creatinine 0.98(H) 0.56 - 0.96 mg/dL 07/23/2022 1:51 PM [facility] Sodium 137 136 - 145 mmol/L 07/23/2022 1:51 PM [facility] Potassium 3.9 3.5 - 4.5 mmol/L 07/23/2022 1:51 PM [facility] Chloride 106 98 - 107 mmol/L 07/23/2022 1:51 PM [facility] CO2 23 22 - 29 mmol/L 07/23/2022 1:51 PM [facility] Glucose 92 70 - 115 mg/dL 07/23/2022 1:51 PM [facility] Calcium 8.5 8.4 - 10.2 mg/dL 07/23/2022 1:51 PM [facility] Protein Total 6.8 6.0 - 8.3 g/dL 07/23/2022 1:51 PM [facility] Albumin 3.7 3.4 - 5.0 g/dL 07/23/2022 1:51 PM [facility] Bilirubin Total 0.5 0.2 - 1.2 mg/dL 07/23/2022 1:51 PM [facility] Alkaline Phosphatase 91 40 - 150 U/L 07/23/2022 1:51 PM [facility] ALT 41 5 - 55 U/L 07/23/2022 1:51 PM [facility] AST 30 5 - 34 U/L 07/23/2022 1:51 PM [facility] Anion Gap 12 8 - 18 07/23/2022 1:51 PM [facility] BUN/Creatinine Ratio 11 7 - 23 07/23/2022 1:51 PM [facility] Osmolality Calculated 283 270 - 300 mOsm/kg 07/23/2022 1:51 PM [facility] Albumin/Globulin Ratio 1.2 1.1 - 2.3 07/23/2022 1:51 PM [facility] eGFR by CKD-EPI 71(L) >=90 mL/min/1.7 3 m2 07/23/2022 1:51 PM [facility] Blood BLOOD SPECIMEN / Unknown Venipuncture / Unknown 07/23/2022 1:16 PM CDT 07/23/2022 1:23 PM [facility] Mike Oh MD LAB - CHEMISTRY [place] [facility] Organization Address City/State/ZIP Co de Phone Number [facility] [address] [place] [address], [facility] [phone] from Last 3 Months or Most Recently Relevant to Health Maintenance Care Teams Lan Engineer Relationship Specialty Start Date End Date Hayley Fonseca APRN-CNP [address] [phone] [facility] - General 12/18/21
--- OUTSIDE RECORDS SUMMARY | 2025-01-06 16:19 | XMS_ITS | Data Portability ---
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 Court Stenographer variances may occur. Despite proofreading, typographical errors may occur. Occasional wrong-word or 'gkliv-q-hogt' substitutions may have occurred due to the inherent limitations of voice recording. Read the chart carefully and recognize, using context, where substitutions have occurred. Not available 02/23/2024 16:27:56 07/15/2024 07/15/2024 Time spent with patient included: preparing to see patient by reviewing tests, obtaining and reviewing history, medical examination and evaluation, counseling and educating the patient, ordering medications and tests, documenting clinical information in EHR, independently interpreting results and communicating results to the patient for a total of 50 minutes. [email or web address] Not available 07/15/2024 10:31:29 Plan of Treatment Reminders Order Date Submit Date Provider Last Modified By Organization Details Last Modified Time Details Appointments None recorded. Lab urinalysis complete, reflex culture 2023 [facility] (Lab), [address] [place], [address], 07:46:26 BNP (B-type natriureti c peptide), serum or plasma 2023 024 [facility] (Lab), [address] [place], [address], 4 14:55:13 ige, total, serum 2023 024 [email or web address] 2 [facility] (Lab), [address] [place], [address], 4 15:17:46 tb (M tuberculos is), ifn-gamma helen, blood 2023 024 [id number] 2 [facility] (Lab), [address] [place], [address], 4 15:17:46 eosinophil count, manual, blood (OBS) 2023 024 [email or web address] 2 [facility] (Lab), [address] [place], [address], 4 15:17:46 igg subclasses 1+2+3+4, serum 2023 024 [id number] 2 [facility] (Lab), [address] [place], [address], 4 15:17:46 respirator y allergen panel, [facility] A, serum 2023 024 IRAIDA [facility] (Lab), [address] [place], [address], 4 11:56:07 respirator y allergen panel - [facility] b 2023 024 [id number] 2 [facility] (Lab), [address] [place], [address], 4 15:17:46 alpha-1-an titrypsin (aat) phenotype, serum 2023 024 [id number] 2 [facility] (Lab), [address] [place], [address], 4 15:17:46 Referral rheumatolo gist referral - Please call patient to schedule. 2023 024 [email or web address] [facility] (Rheumatology ), [address], [place], [address], 5 10:24:53 pulmonolog ist referral - Needs asthma assessment , action plan, spirometry . Hx of sleep apnea also. 2023 024 edwin Nash MD, [address] [place], [address], 4 07:34:59 Procedures None recorded. Surgeries None recorded. Imaging MAMMO, screening, bilateral 2023 024 [email or web address] [facility] ([facility] Sched[facility]), [address] [place], [address], 5 17:18:31 Medication Orders triamcinol one acetonide 0.1 % topical cream 2023 [id number], [address], [place], [id number], 4 16:38:14 oxybutynin chloride 5 mg tablet 2023 024 [facility], [address], [place], [place], [id number], 4 16:38:14 Flovent HFA 110 mcg/actuat ion aerosol inhaler 2023 024 IRAIDA [facility], [address] , [place], [place], [id number], 4 10:15:25 prednisone 20 mg tablet [address] [facility]22368, [address], [place], [place], [id number], 4 16:21:47 Medrol (Kobe) 4 mg tablets in a dose pack [address] [facility] #51215, [address], [place], [place], [id number], 4 16:21:42 azithromyc in 250 mg tablet [address] [facility] #22603, [address], [place], [place], [id number], 4 16:21:22 ProAir HFA 90 mcg/actuat ion aerosol inhaler 2023 024 IRAIDA [facility] #89922, [address], [place], [place], [id number], 12:08:55 clindamyci n HCl 300 mg capsule [address] [facility] #72193, [address], [place], [place], [id number], 4 17:22:22 Patient TargetsNo targets recorded. Patient Instructions Encounter Date Encounter Id Patient Instructions Last Modified By Organization Details Last Modified Time 02/23/2024 [id number] paronychia: care instructions Not available 02/23/2024 16:29:00 05/10/2024 [id number] Follow up in 3 months Tests: Mammogram Referral: Dr. 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 Hx of sleep apnea also. Referring Physician: Lupe Chase, Internal Medicine, Encounter Date: 05/10/2024 Composite Bond Technician Referral for Butterfly rash Please call patient to schedule. Referring Physician: Lupe Chase, Internal Medicine, Encounter Date: 08/23/2024 Results Created Date Observation Date Name Description Value Unit Range Abnormal Flag Note LastModifiedBy Organization Detail LastModifiedTime 01/27/20 24 01/16/2024 XR, chest No observ ation record ed. [address] [facility] [address], [place], [address], 01/29/2024 12:38:56 01/27/20 24 01/16/2024 XR, chest No observ ation record ed. [address], [place], [address], 01/28/2024 11:44:10 02/05/20 24 02/04/2024 XR, kidne y + urete r + bladd er No observ ation record ed. [facility] ([facility] Call Scheduling) [address] [place], [address], 02/05/2024 13:40:56 02/05/20 24 02/04/2024 US, upper extre mity, nonva scula r No observ ation record ed. [address] (One Call Scheduling) [address] [place], [address], 02/05/2024 16:19:03 06/23/20 24 06/17/2024 XR, foot No observ ation record ed. Not Available 2023 10:59:11 06/30/20 24 06/26/2024 XR, chest , 2 view No observ ation record ed. Not Available 2023 08:31:35 06/30/20 24 06/26/2024 XR, tibia + fibul a, 2 view No observ ation record ed. Not Available 2023 08:31:35 06/30/20 24 06/26/2024 CT, angio gram, chest + abdom en + pelvi s, w/ contr ast No observ ation record ed. Not Available 2023 08:31:36 06/30/20 24 06/26/2024 XR, ankle , 2 view No observ ation record ed. Not Available 2023 08:31:36 06/30/20 24 06/26/2024 XR, foot, 2 view No observ ation record ed. Not Available 2023 08:31:36 07/19/20 24 05/26/2024 PFT, compl ete No observ ation record ed. [facility] Not Available 2023 09:22:35 07/19/20 24 06/13/2024 elect rocar diogr am No observ ation record ed. [facility] Not Available 2023 09:22:36 07/19/20 24 05/26/2024 CT, chest , w/o contr ast No observ ation record ed. [facility] Not Available 2023 09:45:25 09/05/20 24 09/04/2024 XR, shoul mario No observ ation record ed. [facility] , [place], [address], 09/06/2024 08:04:20 12/25/1912/24/2024 XR, kidne y + urete r + bladd er No observ ation record ed. [facility] , [place], [address], 12/24/2024 16:00:58 Result Notes None recorded. Problems Name Problem SNOMED Code Status Onset Date Resolution Date Notes Provider Name and Address Organization Details Recorded Time Metatarsa lgia 20252711 Active Lupe Chase APRN [address], [address], [place], [address] , [place] [facility] 4 17:29:30 Leukocyto sis 438817768 Active 2021 Not Available [facility] 3 07:36:52 Celluliti s of skin 134575273 Completed 202105/07/2024 Lupe Chase APRN [address], [place], [address] , [employer] [place] [facility] [employer] [facility] 4 17:29:48 Acute sinusitis 02844760 Completed 202105/07/2024 Lupe Chase APRN [address], [place], [address] , [employer] [place] [facility] [employer] [facility] 4 17:29:44 Backache 687023478 Completed Not Available [facility] 3 01:09:00 Increased frequency of urination 918671186 Completed Not Available [facility] 3 01:09:00 Pain in throat 400190572 Completed 202105/07/2024 Lupe Chase APRN [address], [place], [address] , [place] [facility] [place] [facility] 4 17:30:30 Asthma 336365215 Active 2021 Lupe Chase APRN [address], [place], [address] , [place] [facility] [place] [facility] 4 14:10:27 Abdominal pain 80696764 Completed Not Available [facility] 3 01:09:01 Increased blood pressure 66062966 Completed 05/07/2024 Lupe Chase APRN [address], [place], [address] , [place] [facility] [place] [facility] 4 17:29:55 Dysmenorr hea 889210002 Completed Not Available [employer] 3 01:09:01 Sleep pattern disturban ce 05587127 Completed Not Available [facility] 3 01:09:01 Eruption 533961317 Completed [address], [place], [address] , [place] [employer] [facility] 4 17:30:51 Chronic low back pain 292407202 Active [address], [place], [address] , [employer] [facility] [employer] [facility] 4 14:10:37 Booth's neuroma of right foot 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 9108 Active 2019 Not Available [facility] 3 07:36:52 Rib pain 086600095 Completed Not Available [facility] 3 01:09:02 Excessive growth of facial hair 552097847 Active [address], [place], [address] , [employer] [facility] [employer] [facility] 4 17:31:01 Right lower quadrant pain 841274410 Completed Not Available [facility] 3 01:09:02 Pain in pelvis 59805789 Completed Not Available [facility] 3 01:09:02 Abscess of skin and/or subcutane ous tissue 44032029 Completed 202205/07/2024 RICK [address], [place], [address] , [employer] [facility] [employer] [facility] 4 17:30:54 Sinusitis 53925977 Completed 05/07/[address], [place], [address] , [employer] [facility] 4 17:30:16 Migraine 56170788 Active [address], [place], [address] , [employer] [facility] 4 14:11:04 Menorrhag ia 781819115 Completed CLEMENTE Milan-Wally [address], [place], [address] , [facility] 3 20:02:43 Multiple infected superfici al wounds 646719062 Completed 202105/07/2024 Lupe Chase APRN [address], [place], [address] , [facility] 4 17:30:36 Sinus tarsi syndrome 555559995 Active Lupe Chase APRN [address], [place], [address] , [facility] 4 17:29:15 Ureteric stone of lower third of ureter 691043756 Completed Not Available [facility] 3 01:09:03 Foot pain 90652872 Completed Not Available [facility] 3 01:09:03 Anxiety 03585962 Active Not Available [facility] 3 07:36:52 Dysuria 59447435 Completed Not Available [facility] 3 01:09:04 Peroneal tendiniti s 33324737 Completed 05/07/2024 RICK [address], [place], [address] , [facility] 4 17:30:23 Upper respirato ry infection 38308647 Completed 202205/07/[address], [place], [address] , [facility] 4 16:32:12 Hyperlipi demia 55311773 Active 2021 Lupe Chase APRN [address], [place], [address] , [facility] 4 14:10:43 Dyspnea on exertion 03301476 Active [address], [place], [address] , [employer] 4 17:31:00 Verruca plantaris 94278068 Active 2018 Not Available [facility] 3 07:36:52 Capsuliti s 2318007 Active Not Available [facility] 3 07:36:52 Rhinitis 26680644 Completed Not Available [facility] 3 01:09:05 Primary osteoarth ritis of midfoot 686431961 Active 2018 Lupe Chase APRN [address], [place], [address] , [employer] 4 17:30:19 Liver enzymes level above reference range 753098160 Completed 202105/07/[address], [place], [address] , [employer] 4 17:30:47 Prediabet es 529640459 Active 2021 Luep Chase APRN [address], [place], [address] , [employer] 4 14:11:19 Exposure to SARS-CoV- 2 Completed Not Available [facility] 3 01:09:06 Fatigue 60373160 Active Lupe Chase APRN [address], [place], [address] , [employer] 4 14:10:49 Dystrophi a unguium 62101916 Active 2020 Lupe Chase APRN [address], [place], [address] , [employer] 4 14:10:41 Pain in limb 64324759 Completed Not Available [facility] 3 01:09:07 Skin lesion 98019754 Completed Not Available [facility] 3 01:09:07 Kidney stone 63030923 Completed Lupe Chase APRN [address], [place], [address] , [employer] 4 17:31:06 Multiple joint pain 37396216 Completed 202205/07/2024 Lupe Chase APRN [address], [place], [address] , [employer] 4 17:30:33 Sleep apnea 50589221 Active 2022 Lupe Chase APRN [address], [place], [address] , [employer] 4 14:11:24 Chronic abdominal pain 389500969 Active 2022 Lupe Chase APRN [address], [place], [address] , [employer] 4 17:29:51 Mixed anxiety and depressiv e disorder 633605230 Active 2022 Lupe Chase APRN [address], [place], [address] , [employer] 4 14:10:57 Cervical radiculop athy 66384407 Active 2022 Lupe Chase APRN [address], [place], [address] , [employer] 4 14:10:32 Nonalcoho lic steatohep atitis 044965279 Active [address], [place], [address] , [employer] 4 14:11:07 Obesity 558468880 Active [address], [place], [address] , [employer] 4 14:11:15 Menorrhag ia 896937456 Active 2022 Not Available [facility] 3 07:36:52 Eruption 888669071 Completed 202205/07/2024 Lupe Chase APRN [address], [place], [address] , [employer] [facility] [employer] [facility] 4 17:30:51 Pain of toe of right foot 12158106399 9101 Completed 202205/07/2024 Lupe Chase APRN [address], [place], [address] , [employer] - [employer] [facility] 4 17:30:26 Kidney stone 22234903 Completed 202205/07/2024 Lupe Chase APRN [address], [place], [address] , [employer] [facility] [employer] [facility] 4 17:31:05 Urinary incontine nce 921916002 Active 2022 Lupe Chase APRN [address], [place], [address] , [employer] [facility] 14:11:33 Essential hypertens ion 57470617 Active 2023 Lupe Chase APRN [address], [place], [address] , [employer] [facility] [employer] [facility] 4 17:29:01 Mass of upper limb 862018966 Active [address], [place], [address] , [employer] [facility] 4 17:14:15 Infection of big toe 368086861 Completed 202305/07/2024 Lupe Chase APRN [address], [place], [address] , [employer] [facility] [employer] [facility] 4 17:29:58 Pain radiating to thoracic region left side 481344113 Completed 202305/07/2024 Lupe Chase APRN [address], [place], [address] , [employer] [facility] 4 17:29:34 Nodule of lung 772891078 Active 2023 Lupe Chase APRN [address], [place], [address] , [employer] [facility] 4 10:27:29 Ingrowing nail of toe of right foot 55592129166 084037 Completed 202305/07/2024 Lupe Chase APRN [address], [place], [address] , [employer] [facility] 4 17:30:02 Dyspnea 241475573 Completed 202305/07/2024 Lupe Chase APRN [address], [place], [address] , [employer] [facility] [employer] [facility] 4 17:29:40 Cardiac pacemaker in situ 136638798 Active 2023 Lupe Chase APRN [address], [place], [address] , [employer] [facility] 4 12:06:50 Arthritis 4287284 Active [address], [place], [address] , [employer] [facility] 4 11:17:36 Upper respirato ry infection 37993288 Active 2023 Lupe Chase APRN [address], [place], [address] , [employer] [facility] 4 16:32:12 Pain in right foot 11727485114 9107 Active [address], [place], [address] , [employer] [facility] [employer] [facility] 4 16:46:00 Acute urticaria 637184355 Active 2023 Mariola Lal, FOREST [address], [place], [address] , [employer] 4 10:12:48 Mitral valve regurgita tion 78079015 Active 2023 Lupe Chase APRN [address], [place], [address] , [employer] 4 20:25:03 Sick sinus syndrome 23177264 Active 2023 Lupe Chase APRN [address], [place], [address] , [employer] 20:25:36 Butterfly rash 17300941 Active 2023 Lupe Chase APRN [address], [place], [address] , [employer] 16:26:12 Notes:Medical History: Anxie ty Migraine headaches COVID infection 10/2021 Mild restrictive airflow impairment Obesity Hyperlipidemia Hypertension EF 65% Mild TR RAYO Hepatic steatosis with transaminitis Right Booth's neuroma Sinus Tarsi syndrome Procedure History: Tubal ligation TIFFANY Pacemaker placement Problem Notes None recorded. Procedures Surgical History Date Name Laterality Status Provider Name and Address Organization Details Recorded Time 02/12/20 24 Partial Nail Avulsion Chemical Matrixectomy-Right completed Rich Lockwood DPM [address], [place], [address], [employer] 02/12/2024 16:28:22 07/13/20 19 Date of Last Colonoscopy completed Not Available [facility] 12/11/2022 00:55:40 06/02/20 19 Cholecystectomy completed Not Available [facility] 12/11/2022 00:55:45 Pacemaker completed Not Available [facility] 12/11/2022 00:55:45 ligation of bilateral fallopian tubes completed Not Available [facility] 12/11/2022 00:55:45 Hysterectomy completed Tasha Hassan MA [employer] 06/16/2024 08:31:26 Imaging Results Imaging Date Name Status LastModified by Organization Details LastModified Time 01/16/2024 XR, chest completed [email or web address] [facility] [address], [place], [address], 01/29/2024 12:38:56 01/16/2024 XR, chest completed [email or web address] [facility] [address], [place], [address], 01/28/2024 11:44:10 02/04/2024 XR, kidney + ureter + bladder completed [facility] ([facility]) [address] [place], [address], 02/05/2024 13:40:56 02/04/2024 US, upper extremity, nonvascular completed [email or web address] [facility] ([facility] Sched[facility]) [address] [place], [address], 02/05/2024 16:19:03 06/17/2024 XR, foot completed Information no t available 06/24/2024 10:59:11 06/26/2024 XR, chest, 2 view completed Informa tion not available 07/01/2024 08:31:35 06/26/2024 XR, tibia + fibula, 2 view completed Information not available 07/01/2024 08:31:35 06/26/2024 CT, angiogram, chest + abdomen + pelvis, w/ contrast completed Information not available 07/01/2024 08:31:36 06/26/2024 XR, ankle, 2 view completed Informa tion not available 07/01/2024 08:31:36 06/26/2024 XR, foot, 2 view completed Informat ion not available 07/01/2024 08:31:36 05/26/2024 PFT, complete completed [facility] Information not available 07/19/2024 09:22:35 06/13/2024 electrocardiogram completed [facility] Informa tion not available 07/19/2024 09:22:36 05/26/2024 CT, chest, w/o contrast completed [facility] Information not available 07/19/2024 09:45:25 09/04/2024 XR, shoulder completed [address] , [place], [address], 09/06/2024 08:04:20 12/24/2024 XR, kidney + ureter + bladder completed [address] , [place], [address], 12/24/2024 16:00:58 Procedure Notes None recorded. Medical Equipment None Reported. Allergies Allergen ID Allergen Name Allergen Category Reaction Reaction Severity Criticality Documentation Date Start Date Code Code System Note Provider Name and Address Organization Details Recorded Time 8 Product containin g penicilli n (product) medicatio n Not available Not available Not available 12/11/2022 64464 [id number] SNOMED Other react ions and sever ities : 'Adve rse react ion to subst ance' . Lupe Chase, RICK [address] [facility], [facility] [address], [place], [address] , [facility] [employer] 16:45:37 Medications Name Sig Start Date Stop Date Status Note LastModified by Organization Details LastModified Time diclofena c 75 mg-misopr ostol 200 mcg tablet,im mediate,d elayed release TK 1 T PO BID PRN 11/28 completed Not Available Not Available Not Available celecoxib 200 mg capsule 03/13 completed Not Available Not Available Not Available fluoxetin e 40 mg capsule TK 1 C PO QD 06/06 completed Not Available Not Available Not Available cyclobenz aprine 10 mg tablet TAKE 1 TABLET BY MOUTH THREE TIMES DAILY NEEDED FOR MUSCLE SPASM 05/29 completed Not Available Not Available Not Available medroxypr ogesteron e 10 mg tablet TAKE 1 TABLET BY MOUTH EVERY DAY 06/12 completed Not Available Not Available Not Available atorvasta tin 40 mg tablet TAKE 1 TABLET BY MOUTH EVERY DAY 05/26 completed Not Available Not Available Not Available bupropion HCl SR 150 mg tablet,12 hr sustained -release TAKE 1 TABLET BY MOUTH TWICE DAILY 08/23 completed Not Available Not Available Not Available acetamino phen 325 mg tablet TAKE 2 TABLETS BY MOUTH EVERY 6 HOURS TAKE FOR 7 DAYS AND THEN NEEDED FOR PAIN 02/04 completed Not Available Not Available Not Available prednison e 10 mg tablet Take 6 x 2 days, 5 x 2 days, 4x 2 days, 6v4hary, 5x3igpt, 4l2rdmu PO in AM active Not Available Not Available No t Available doxycycli ne hyclate 100 mg capsule TK 1 C PO BID FOR 7 DAYS active Not Available Not Available No t Available atorvasta tin 20 mg tablet Take 1 tablet every day by oral route. 12/25 completed Not Available Not Available Not Available naproxen 375 mg tablet TAKE 1 TABLET BY MOUTH TWICE DAILY 05/29 completed Not Available Not Available Not Available Ceftin 500 mg tablet Take 1 tablet twice a day by oral route for 10 days. 06/16 completed Not Available Not Available Not Available clindamyc in HCl 300 mg capsule TAKE 1 CAPSULE BY MOUTH EVERY 6 HOURS FOR 7 DAYS DIRECTED 05/07 completed Not Available Not Available Not Available albuterol sulfate 2.5 mg/3 mL (0.083 %) solution for nebulizat ion INHALE THE CONTENTS OF 1 VIAL USING NEBULIZE R EVERY 6 HOURS NEEDED FOR WHEEZING active Not Available Not Available No t Available trazodone 50 mg tablet Take 0.5 tablets every day by oral route as needed. active Not Available Not Available No t Available atorvasta tin 10 mg tablet TAKE 1 TABLET BY MOUTH EVERY DAY active Not Available Not Available No t Available cefpodoxi me 200 mg tablet TK 1 T PO Q 12 H FOR 7 DAYS active Not Available Not Available No t Available azithromy nidhi 250 mg tablet TAKE 2 TABLETS BY MOUTH FOR 1 DAY THEN TAKE 1 TABLET BY MOUTH DAILY FOR 4 DAYS 08/23 completed Not Available Not Available Not Available ibuprofen 800 mg tablet TK 1 T PO TID PRN 06/29 completed Not Available Not Available Not Available metoprolo l tartrate 100 mg tablet TAKE 1 TABLET BY MOUTH TWICE DAILY active Not Available Not Available No t Available tizanidin e 4 mg tablet Take 1 tablet every 6 hours by oral route as needed. active Not Available Not Available No t Available fluconazo le 150 mg tablet TAKE 1 TABLET BY MOUTH NOW AND IN 72 HOURS 05/07 completed Not Available Not Available Not Available benzonata te 200 mg capsule TAKE 1 CAPSULE BY MOUTH THREE TIMES DAILY NEEDED FOR COUGH active Not Available Not Available No t Available Patanol 0.1 % eye drops Instill 1 drop every day by ophthalm ic route. 05/01 completed Not Available Not Available Not Available hydrocodo ne 5 mg-acetam inophen 325 mg tablet TAKE 1 TABLET BY MOUTH EVERY 6 HOURS NEEDED 01/19 completed Not Available Not Available Not Available senna 8.6 mg tablet TK 2 TS PO ONCE D 01/01 completed Not Available Not Available Not Available meloxicam 15 mg tablet Take 1 tablet every day by oral route. 02/04 completed Not Available Not Available Not Available metoprolo l succinate ER 200 mg tablet,ex tended release 24 hr TAKE 1 TABLET BY MOUTH EVERY DAY 05/26 completed Not Available Not Available Not Available lisinopri l 20 mg tablet 06/19 completed Not Available Not Available Not Available ondansetr on HCl 4 mg tablet TAKE 1 TABLET BY MOUTH EVERY 6 HOURS NEEDED FOR NAUSEA 02/13 completed Not Available Not Available Not Available prednison e 20 mg tablet TAKE 2 TABLETS BY MOUTH EVERY DAY FOR 5 DAYS active Not Available Not Available No t Available Compazine 10 mg tablet take 1 tablet BID prn N&V 12/24 completed Not Available Not Available Not Available metoprolo l succinate ER 100 mg tablet,ex tended release 24 hr TAKE 1 TABLET BY MOUTH EVERY DAY 12/04 completed Not Available Not Available Not Available naproxen 250 mg tablet 250 mg by oral route. 06/17 completed Not Available Not Available Not Available clindamyc in HCl 150 mg capsule TAKE 1 CAPSULE BY MOUTH THREE TIMES DAILY 05/26 completed Not Available Not Available Not Available hydroxyzi ne pamoate 50 mg capsule TAKE 1 CAPSULE BY MOUTH THREE TIMES DAILY NEEDED 12/25 completed Not Available Not Available Not Available triamcino lone acetonide 0.5 % topical ointment DICKSON BID 04/19 completed Not Available Not Available Not Available metronida zole 500 mg tablet TAKE 1 TABLET BY MOUTH EVERY 12 HOURS FOR 7 DAYS 08/23 completed Not Available Not Available Not Available lidocaine HCl 2 % mucosal jelly Take 200 mg by mucous route. 05/01 completed Not Available Not Available Not Available acetamino phen 300 mg-codein e 30 mg tablet TK 1 T PO Q 6 H PRN P 06/19 completed Not Available Not Available Not Available clopidogr el 75 mg tablet TAKE 1 TABLET BY MOUTH EVERY DAY 01/19 completed Not Available Not Available Not Available ciproflox acin 250 mg tablet TK 1 T PO BID FOR 5 DAYS 06/19 completed Not Available Not Available Not Available ciproflox acin 500 mg tablet TAKE 1 TABLET BY MOUTH EVERY 12 HOURS FOR 3 DAYS 01/19 completed Not Available Not Available Not Available sulfameth oxazole 800 mg-trimet hoprim 160 mg tablet TAKE 1 TABLET BY MOUTH TWICE DAILY 05/07 completed Not Available Not Available Not Available omeprazol e 40 mg capsule,d elayed release TAKE 1 CAPSULE BY MOUTH DAILY 05/26 completed Not Available Not Available Not Available doxycycli ne monohydra te 100 mg tablet TAKE 1 TABLET BY MOUTH TWICE DAILY 01/19 completed Not Available Not Available Not Available tramadol 50 mg tablet TAKE 1 TABLET BY MOUTH EVERY 6 HOURS NEEDED FOR PAIN OR CRAMPING 02/04 completed Not Available Not Available Not Available triamcino lone acetonide 0.1 % topical cream APPLY THIN LAYER TOPICALL Y TO THE AFFECTED AREA TWICE DAILY NEEDED active Not Available Not Available No t Available amoxicill in 500 mg tablet TK 2 TS PO Q 8 H FOR 10 DAYS 06/11 completed Not Available Not Available Not Available ondansetr on 8 mg disintegr ating tablet DISSOLVE 1 TABLET ON THE TONGUE THREE TIMES DAILY NEEDED FOR NAUSEA OR VOMITING 01/19 completed Not Available Not Available Not Available ketorolac 10 mg tablet TAKE 1 TABLET BY MOUTH EVERY 6 HOURS FOR 5 DAYS 03/13 completed Not Available Not Available Not Available oxycodone -acetamin ophen 5 mg-325 mg tablet TAKE 1 TABLET BY MOUTH EVERY 8 HOURS NEEDED FOR PAIN. DO NOT DRIVE OR FLY FOR 24 AFTER TAKING THIS MEDICATI ON. DO NOT TAKE TRAMADOL 05/26 completed Not Available Not Available Not Available alprazola m 0.25 mg tablet TAKE 1 TABLET BY MOUTH AT BEDTIME NEEDED 05/01 completed Not Available Not Available Not Available amitripty line 25 mg tablet TK 1 T PO QHS 05/01 completed Not Available Not Available Not Available magnesium oxide 400 mg (241.3 mg magnesium ) tablet TK 1 T PO BID 03/20 completed Not Available Not Available Not Available methocarb thierno 750 mg tablet TAKE 1 TABLET BY MOUTH FOUR TIMES DAILY active Not Available Not Available No t Available tamsulosi n 0.4 mg capsule TAKE 1 CAPSULE BY MOUTH EVERY DAY FOR 7 DAYS 08/23 completed Not Available Not Available Not Available Compound W 17 % topical liquid Apply 1 applicat ion every day by topical route. 11/22 completed Not Available Not Available Not Available diazepam 2 mg tablet TAKE 1 TABLET BY MOUTH EVERY 8 HOURS NEEDED FOR PAIN AND MUSCLE SPASMS 12/04 completed Not Available Not Available Not Available doxycycli ne monohydra te 100 mg capsule TAKE 1 CAPSULE BY MOUTH TWICE DAILY 08/23 completed Not Available Not Available Not Available hydrocodo ne 7.5 mg-acetam inophen 325 mg tablet TK 1 T PO Q 6 H PRN P 11/04 completed Not Available Not Available Not Available cephalexi n 500 mg capsule TK ONE C PO TID TAT 06/19 completed Not Available Not Available Not Available Prozac 20 mg capsule Take 1 capsule every day by oral route for 30 days. 07/05 completed Not Available Not Available Not Available tobramyci n 0.3 % eye drops INSTILL 2 DROPS IN THE LEFT EYE EVERY 4 HOURS . 12/04 completed Not Available Not Available Not Available buspirone 10 mg tablet Take 1 tablet every day by oral route at bedtime. active Not Available Not Available No t Available lisinopri l 10 mg tablet TK 1 T PO D 07/29 completed Not Available Not Available Not Available warfarin 5 mg tablet 08/27 completed Not Available Not Available Not Available losartan 25 mg tablet TAKE 1 TABLET BY MOUTH DAILY active Not Available Not Available No t Available Advair Diskus 250 mcg-50 mcg/dose powder for inhalatio n INHALE 1 PUFF BY MOUTH TWICE DAILY 05/26 completed Not Available Not Available Not Available metoprolo l tartrate 50 mg tablet TAKE 1 TABLET BY MOUTH TWICE DAILY EVERY DAY 01/19 completed Not Available Not Available Not Available docusate sodium 100 mg capsule TAKE ONE CAPSULE BY MOUTH TWICE DAILY 02/04 completed Not Available Not Available Not Available mometason e 50 mcg/actua tion nasal spray [place] 2 sprays every day by intranas al route. active Not Available Not Available No t Available gabapenti n 300 mg capsule TAKE 1 CAPSULE BY MOUTH TWICE DAILY DIRECTED active Not Available Not Available No t Available magnesium citrate oral solution TK UTD 01/01 completed Not Available Not Available Not Available diclofena c sodium 75 mg tablet,de layed release TK 1 T PO BID NEEDED active Not Available Not Available No t Available montel[address] 10 mg tablet TK 1 T PO QD active Not Available Not Available No t Available hydroxyzi ne HCl 25 mg tablet Take 1 tablet 3 times a day by oral route as needed. active Not Available Not Available No t Available acetamino phen 300 mg-codein e 60 mg tablet 05/01 completed Not Available Not Available Not Available hydrochlo rothiazid e 25 mg tablet TAKE 1 TABLET BY MOUTH EVERY DAY active Not Available Not Available No t Available mupirocin 2 % topical ointment APPLY EXTERNAL LY TO THE AFFECTED AREA EVERY 8 HOURS active Not Available Not Available No t Available [place] 10 mg-325 mg tablet Take 1 tablet every 4-6 hours by oral route as needed. 05/01 completed 1-2 tablets every 4-6 hours as needed Not Available Not Available Not Available norethind luis antnoio acetate 5 mg tablet TAKE 2 TABLETS BY MOUTH EVERY DAY 12/04 completed Not Available Not Available Not Available ergocalci ferol (vitamin D2) 1,250 mcg (50,000 unit) capsule Take 1 capsule every week by oral route. active Not Available Not Available No t Available clobetaso l 0.05 % topical ointment 08/23 completed Not Available Not Available Not Available ibuprofen 600 mg tablet TAKE 1 TABLET BY MOUTH FOUR TIMES DAILY NEEDED FOR PAIN TAKE FOR 7 DAYS AND THEN NEEDED FOR PAIN 02/04 completed Not Available Not Available Not Available levofloxa nidhi 500 mg tablet TK 1 T PO D active Not Available Not Available No t Available levofloxa nidhi 750 mg tablet TK 1 T PO QD FOR 5 days 03/13 completed Not Available Not Available Not Available zolpidem 10 mg tablet TK ONE T PO ONCE D HS 06/06 completed Not Available Not Available Not Available methylpre dnisolone 4 mg tablets in a dose pack FOLLOW PACKAGE DIRECTIO NS 08/23 completed Not Available Not Available Not Available albuterol sulfate HFA 90 mcg/actua tion aerosol inhaler INHALE 2 PUFFS BY MOUTH EVERY 4 HOURS DIRECTED FOR ASTHMA active Not Available Not Available No t Available celecoxib 100 mg capsule TK 1 C PO QD PRN. TK WF 11/13 completed Not Available Not Available Not Available hydrocodo ne 10 mg-acetam inophen 650 mg tablet TK 1 T PO Q 8-12 HOURS 10/18 completed Not Available Not Available Not Available oxybutyni n chloride 5 mg tablet TAKE 1 TABLET BY MOUTH TWICE DAILY DIRECTED active Not Available Not Available No t Available ondansetr on 4 mg disintegr ating tablet DISSOLVE 1 TABLET ON THE TONGUE EVERY 8 HOURS NEEDED FOR NAUSEA OR VOMITING 01/19 completed Not Available Not Available Not Available cefdinir 300 mg capsule TAKE ONE CAPSULE BY MOUTH TWICE DAILY 05/10 completed Not Available Not Available Not Available losartan 100 mg tablet TAKE 1 TABLET BY MOUTH EVERY EVENING 12/25 completed Not Available Not Available Not Available diltiazem 60 mg tablet 01/19 completed Not Available Not Available Not Available fluticaso ne propionat e 50 mcg/actua tion nasal spray,monse pension [place] 2 sprays every day by intranas al route. active Not Available Not Available No t Available doxycycli ne hyclate 100 mg tablet TAKE 1 TABLET BY MOUTH TWICE DAILY FOR 10 DAYS 05/26 completed Not Available Not Available Not Available loratadin e 10 mg tablet TK 1 T PO QD active Not Available Not Available No t Available Vaniqa 13.9 % topical cream APPLY THIN LAYER EXTERNAL LY TO THE AFFECTED AREA EVERY DAY 03/06 completed Not Available Not Available Not Available naproxen 500 mg tablet TAKE 1 TABLET BY MOUTH TWICE DAILY WITH FOOD active Not Available Not Available No t Available metoprolo l tartrate 5 mg/5 mL intraveno us solution Inject 5 mL by intraven ous route. 12/24 completed Not Available Not Available Not Available oxycodone 5 mg tablet TAKE 1 TABLET BY MOUTH EVERY 4 HOURS NEEDED FOR PAIN 02/04 completed Not Available Not Available Not Available clindamyc in 1 % lotion APPLY TOPICALL Y TO THE AFFECTED AREA TWICE DAILY 05/26 completed Not Available Not Available Not Available bupropion HCl SR 200 mg tablet,12 hr sustained -release TAKE 1 TABLET BY MOUTH TWICE DAILY DIRECTED active Not Available Not Available No t Available cyclobenz aprine 5 mg tablet TK 1 TO 2 TS PO TID PRN active Not Available Not Available No t Available triamcino lone acetonide 0.05 % topical ointment Apply by topical route. bid 04/19 completed Not Available Not Available Not Available rosuvasta tin 10 mg tablet TAKE 1 TABLET BY MOUTH EVERY DAY 01/19 completed Not Available Not Available Not Available rosuvasta tin 20 mg tablet Take 1 tablet every day by oral route. 07/15 completed Not Available Not Available Not Available metoprolo l tartrate 25 mg tablet TAKE HALF A TABLET PO BID 03/20 completed Not Available Not Available Not Available nitrofura ntoin monohydra te/macroc rystals 100 mg capsule TAKE 1 CAPSULE BY MOUTH EVERY 12 HOURS WITH A MEAL OR FOOD FOR 5 DAYS active Not Available Not Available No t Available duloxetin e 30 mg capsule,d elayed release Take 1 capsule every day by oral route. active Not Available Not Available No t Available duloxetin e 60 mg capsule,d elayed release TAKE 1 CAPSULE BY MOUTH EVERY DAY DIRECTED active Not Available Not Available No t Available Flovent HFA 110 mcg/actua tion aerosol inhaler Inhale 1 puff twice a day by inhalati on route as directed for 30 days. 2023 active Not Available Not Available Not Avai lable ranolazin e ER 500 mg tablet,ex tended release,1 2 hr TAKE 1 TABLET BY MOUTH TWICE DAILY active Not Available Not Available No t Available aripipraz ole 2 mg tablet 06/12 completed Not Available Not Available Not Available Quasense 0.15 mg-30 mcg (91) tablets,3 month dose pack 05/01 completed Not Available Not Available Not Available Symbicort 160 mcg-4.5 mcg/actua tion HFA aerosol inhaler Inhale 2 puffs twice a day by inhalati on route for 90 days. 02/26 completed Not Available Not Available Not Available Voltaren 1 % topical gel APPLY 2 GRAMS TO THE AFFECTED AREA(S) BY TOPICAL ROUTE 3 TIMES PER DAY 12/11 completed Not Available Not Available Not Available GaviLyte- G 236 gram-22.7 4 gram-6.74 gram-5.86 gram oral solution U UTD 01/01 completed Not Available Not Available Not Available Dulera 100 mcg-5 mcg/actua tion HFA aerosol inhaler 06/16 completed Not Available Not Available Not Available Qsymia 3.75 mg-23 mg capsule, extended release TK ONE C PO QD 05/01 completed Not Available Not Available Not Available Arnuity Ellipta 100 mcg/actua tion powder for inhalatio n active Not Available Not Available Not Available Ozempic 0.25 mg or 0.5 mg (2 mg/1.5 mL) subcutane ous pen injector Inject 0.25 mg every week by subcutan eous route as directed for 42 days, for weight loss. 06/07 completed Not Available Not Available Not Available Lidocaine Pain Relief 4 % topical patch APPLY 1 PATCH TOPICALL Y TO THE SKIN EVERY DAY NEEDED 06/16 completed Not Available Not Available Not Available albuterol sulf 90 mcg/actua tion breath activated powder inhaler,s ensor Inhale 2 puffs every 4 hours by inhalati on route as directed , for asthma. 05/10 completed Not Available Not Available Not Available tramadol 100 mg tablet TAKE 1 TABLET BY MOUTH EVERY 6 HOURS NEEDED FOR PAIN. DO NOT DRIVE OR USE MACHINER Y FOR 12 HOURS AFTER TAKING THIS MEDICATI ON 01/19 completed Not Available Not Available Not Available Wegovy 0.25 mg/0.5 mL subcutane ous pen injector inject 0.5 ml (0.25 mg) by subcutan eous injectio n every 7 days. active Not Available Not Available No t Available Ozempic 0.25 mg or 0.5 mg (2 mg/3 mL) subcutane ous pen injector INJECT 0.25MG UNDER THE SKIN EVERY WEEK FOR 42 DAYS 06/15 completed Not Available Not Available Not Available Vitals Date Recorded Body height Body mass index (BMI) Body weight Heart rate Respiratory rate Body temperature Oxygen saturation Oxygen saturation in Arterial blood by Pulse oximetry Systolic blood pressure Diastolic blood pressure Provider Name and Address Organization Details Last Updated DateTime 4 180.34 cm 32.6 kg/m2 107475. 61 g 70 /min 14 /min 97.6 [degF] 99 % 99 % 120 mm[Hg] 70 mm[Hg] Mary Ann Zhen [facility] [employer] [facility] 4 16:02:43 Date Recorded Body height Body mass index (BMI) Body weight Body temperature Heart rate Oxygen saturation Oxygen saturation in Arterial blood by Pulse oximetry Systolic blood pressure Diastolic blood pressure Provider Name and Address Organization Details Last Updated DateTime 4 180.34 cm 32.8 kg/m2 235260. 21 g 97.8 [degF] 78 /min 99 % 99 % 124 mm[Hg] 78 mm[Hg] Marilin Diaz [facility] 4 11:45:46 Date Recorded Body height Body mass index (BMI) Body weight Body temperature Heart rate Oxygen saturation Oxygen saturation in Arterial blood by Pulse oximetry Systolic blood pressure Diastolic blood pressure Provider Name and Address Organization Details Last Updated DateTime 4 180.34 cm 33.9 kg/m2 092482. 95 g 95.2 [degF] 71 /min 98 % 98 % 130 mm[Hg] 92 mm[Hg] Tasha Hassan [facility] 4 08:29:07 Date Recorded Body height Body mass index (BMI) Body weight Body temperature Heart rate Oxygen saturation Oxygen saturation in Arterial blood by Pulse oximetry Systolic blood pressure Diastolic blood pressure Provider Name and Address Organization Details Last Updated DateTime 4 180.34 cm 33.9 kg/m2 858894. 95 g 98.1 [degF] 61 /min 98 % 98 % 120 mm[Hg] 74 mm[Hg] Tonie Mathews [facility] 4 09:48:09 Date Recorded Body height Body mass index (BMI) Body weight Body temperature Heart rate Oxygen saturation Oxygen saturation in Arterial blood by Pulse oximetry Pain severity - 0-10 verbal numeric rating [Score] - Reported Systolic blood pressure Diastolic blood pressure Provider Name and Address Organization Details Last Updated DateTime 4 180.34 cm 32.8 kg/m2 239056. 21 g 97.2 [degF] 59 /min 99 % 99 % 6 118 mm[Hg] 76 mm[Hg] Tasha Hassan [place] [facility] [employer] 4 16:11:12 Social History Question Answer Notes LastModified by Organizat ion Details LastModified Time Tobacco Smoking Status Former Smoker quit 2016 Not Available [facility] 12/11/2022 00:54:06 Do You Have An Advance Directive? No [id number] Information not available 12/11/2022 What Is Your Level Of Alcohol Consumption? None [id number] Information not available 12/11/2022 What Is Your Level Of Caffeine Consumption? None [id number] Information not available 12/11/2022 How Much Tobacco Do You Chew? None [id number] Information not available 12/11/2022 In The 14 Days Before Symptom Onset, Have You Had Close Contact With A Laboratory-confi rmed COVID-19 While That Case Was Ill? No [id number] Information not available 12/11/2022 In The 14 Days Before Symptom Onset, Have You Had Close Contact With A Person Who Is Under Investigation For COVID-19 While That Person Was Ill? No [id number] Information not available 12/11/2022 Are You Currently Employed? Yes [employer] Information not available 06/16/2024 What Type Of Diet Are You Following? REGULAR [id number] Information not available 12/11/2022 Which Illicit Or Recreational Drugs Have You Used? None [id number] Information not available 12/11/2022 Do You Or Have You Ever Used E-cigarettes Or Vape? 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 No [id number] Information not available 12/11/2022 What Is The Fluoride Status Of Your Home? Unknown [id number] Information not available 12/11/2022 When Did You Quit Smoking? 1-5yearssincelastc igarette [id number].[id number] Information not available 12/11/2022 Are There Any Guns Present In Your Home? No [id number] Information not available 12/11/2022 Do You Use Insect Repellent Routinely? Yes [id number] Information not available 12/11/2022 Where Do You Live? [facility] MIGRATION.[id number] Information not available 12/11/2022 What Was The Date Of Your Most Recent Tobacco Screening? 08/23/2024 Information not available 08/23/2024 How Many Children Do You Have? 1 Information not available 06/16/2024 Do You Have Any Pets? Yes [id number] Information not available 12/11/2022 What Is Your Relationship Status? Information not available 06/16/2024 Do You Use Your Seat Belt Or Car Seat Routinely? Yes [id number] Information not available 12/11/2022 Do You Have Smoke And Carbon Monoxide Detectors In Your Home? Yes [id number] Information not available 12/11/2022 Are You Passively Exposed To Smoke? No [id number] Information not available 12/11/2022 Do You Or Have You Ever Used Smokeless Tobacco? Never Used Smokeless Tobacco MIGRATION.[id number] Information not available 12/11/2022 Are There Any Smokers In Your House? No [id number] Information not available 12/11/2022 Do You Feel Stressed (tense, Restless, Nervous, Or Anxious, Or Unable To Sleep At Night)? [id number] MIGRATION.[id number] Information not available 12/11/2022 Do You Use Any Illicit Or Recreational Drugs? No Information not available 01/20/2024 Do You Use Sunscreen Routinely? Yes [id number] Information not available 12/11/2022 Have You Recently Traveled Abroad? No [id number].[id number] Information not available 12/11/2022 Do You Have Any Dietary Restrictions? No MIGRATION.[id number] Information not available 12/11/2022 Do You Or Have You Ever Used Any Other Forms Of Tobacco Or Nicotine? No Information not available 01/20/2024 Sex: Female Functional Status Question Answer Note LastModified by Organizat ion Details LastModified Time What is your exercise level? Occasional [id number] Information not available 12/11/2022 Mental Status None recorded. Family History Relationship Description Onset Age of this Age Resolved Age Notes LastModified by Organization Details LastModified Time Paternal Grandmother Malignant tumor of breast [id number] Not available 12/11/2022 00:55:52 Mother Hypothyroidi sm [id number] Not available 12/11/2022 00:55:52 Mother Hypertensive disorder [id number] Not available 12/11/2022 00:55:52 Brother Malignant neoplasm of urinary bladder [id number] Not available 12/11/2022 00:55:52 Brother Malignant neoplasm of urinary bladder [id number] Not available 12/11/2022 10:41:03 Father Hypertensive disorder [id number] Not available 12/11/2022 00:55:52 Medical History Condition Response NERVE DISEASE N BLINDNESS N RHEUMATIC FEVER N KIDNEY STONES Y BLADDER PROBLEMS N OTHER # 1 Y POLIO N LUNG DISEASE/DISORDER N RADIATION / CHEMOTHERAPY N COPD N Other # 2 N BLOOD DISEASES N SURGERY N EAR OR HEARING PROBLEMS N MUMPS N BOWEL PROBLEMS N DEPRESSION (INCLUDING POST ) Y STROKE/TIA N ULCERS N BENIGN PROSTATIC HYPERPLASIA N MEASLES N MYOCARDIAL INFARCTION N OBESITY N GERD/NAUSEA N ANEURYSM N URINARY/BLADDER/KIDNEY PROBLEMS N INPATIENT PSYCH CARE N CORONARY ARTERY DISEASE (CAD) N ADDICTION CONCERNS N ENDOMETRIOSIS N Impotence N USE OF BLOOD THINNERS N SKIN PROBLEMS N GASTROINTESTINAL DISORDER N PERIPHERAL VASCULAR DISEASE N MUSCLE,JOINT OR BONE PROBLEMS N GASTROINTESTINAL BLEEDING N BLOOD CLOTS N ASTHMA N CATARACTS N ERECTILE DYSFUNCTION N VARICOSITIES N GI PROBLEMS N Low Testosterone N INFERTILITY N AIDS/HIV N LIVER DISEASE N MALE HYPOGONADISM N HYPERTENSION Y Deficiency N ANXIETY DISORDER Y BLOOD TRANSFUSION N ANEMIA/BLOOD DISORDER N CHRONIC EAR INFECTIONS N BRONCHITIS N TUBERCULOSIS N GLAUCOMA N DIVERTICULITIS N SLEEP APNEA Y CHICKENPOX N INFECTIOUS DISEASE N HEART ARRHYTHMIA N PROSTATE N INSOMNIA N HIGH CHOLESTEROL / HYPERLIPIDEMIA N HYPERTHYROIDISM N EYE PROBLEMS N NEUROLOGICAL PROBLEMS N EDEMA N CHRONIC PAIN SYNDROME N HYPOTHYROIDISM N CAROTID BLOCKAGE N CONSTIPATION N BACK / NECK PROBLEMS N ATHEROSCLEROSIS N BREAST PROBLEMS N DIALYSIS N ECZEMA N OSTEOPOROSIS N ARTHRITIS N APPENDICITIS N DIABETES, TYPE N BAD TEETH N ENT N HEARTBURN / REFLUX N AUTISM SPECTRUM DISORDER (ASD) N HEPATITIS / LIVER DISEASE N PULMONARY DISEASE N GOUT N SLEEP DISORDER N ALZHEIMER'S DISEASE N Brain Problems N HERPES N DEMENTIA N HEADACHES/MIGRAINES Y SEIZURES/EPILEPSY N VASCULAR DISEASE N PACEMAKER N Blood Disorder N DIZZINESS Y HEART DISEASE/HEART PROBLEMS Y KIDNEY DISEASE N MULTIPLE SCLEROSIS N CARDIAC ARRHYTHMIA N CANCER: SPECIFY N ANESTHESIA COMPLICATIONS N ATRIAL FIBRILLATION N Gall Stones N PULMONARY EMBOLISM N AUTOIMMUNE DISEASE N Gynecological History Statement/Question Response How many live births 2 Abnormal Pap N Date of Last Colonoscopy 07/13/2019 Flow Heavy Date of Last Mammogram Date of LMP Sexually Active? Y Menses Monthly Y Date of Last Pap Current Control Method Hysterectom y Obstetrics History GPAL:G 2 P 2 0 0 2 Type Value Multiple Births 0 Full Term 2 Induced 0 Spontaneous 0 Premature 0 Living 2 Ectopics 0 Total 2 Immunizations Vaccine Type Date Status Note Provider Nam e and Address Organization Details Recorded Time Influenza, split virus, quadrivalent, PF 5 completed Lupe Chase APRN [address], [place], [address], [employer] 05/07/2024 17:26:03 Influenza, split virus, quadrivalent, PF 9 completed Lupe Chase APRN [address], [place], [address], [employer] 05/07/2024 17:26:18 Influenza, split virus, quadrivalent, preservative 9 completed Lupe Chase APRN [address], [place], [address], [employer] 05/07/2024 17:26:18 Influenza, split virus, quadrivalent, PF 2 completed Not Available [facility] 07/08/2023 07:36:53 Influenza, split virus, trivalent, PF 4 completed Lupe Chase APRN [address], [place], [address], [employer] 08/24/2024 08:02:41 Past Encounters Encounter ID Performer Location Encounter Start Date Encounter Closed Date Diagnosis/Indication Diagnosis SNOMED-CT Code Diagnosis ICD10 Code Diagnosis Note [id number] [facility] [place] [address] [place] [address] 12/11/2020 00:00:00 12/11/2020 14:02:50 [id number] [facility] 15 [address] [facility] [address] [address] 12/22/2020 00:00:00 12/22/2020 14:36:19 [id number] [facility] Internal Med [facility] 15 [address] [facility] [address] [address] 03/13/2021 00:00:00 03/13/2021 15:46:11 [id number] [facility] Podiatry [place] [address] [facility] [address] [place] [address] 2021 00:00:00 03/15/2021 09:29:23 [id number] [facility] [address] [address] 05/01/2021 00:00:00 05/01/2021 16:38:55 [id number] [facility] [address] [address] 05/15/2021 00:00:00 05/15/2021 16:27:01 [id number] [facility] [address] [place] [address] 06/12/2021 00:00:00 06/12/2021 16:20:40 [id number] [facility] [address] [place] [address] 12/04/2021 00:00:00 12/04/2021 16:41:56 [id number] [facility] Internal Med [facility] 15 [address] [facility] [address] [address] 12/10/2021 00:00:00 12/10/2021 12:22:36 [id number] [facility] Internal Med [facility] 15 [address] [address] 02/04/2022 00:00:00 02/04/2022 16:59:41 [id number] [facility] Internal Med [place] [address] [facility] , [place] [address] 05/29/2022 00:00:00 05/29/2022 14:29:00 [id number] [facility] Internal Med [place] [address] [facility] 15 [place] [address] 08/23/2022 00:00:00 08/23/2022 16:15:38 [id number] [facility] Internal Med [place] [address] [facility] 15 [place] [address] 10/18/2022 00:00:00 10/18/2022 16:08:06 [id number] [facility] General Surgery [address] [facility] 27 [place] [address] 10/24/2022 00:00:00 10/24/2022 13:02:36 [id number] [facility] Pulmonolo gy [place] [address] [place] [address] 11/18/2022 00:00:00 11/18/2022 16:38:14 [id number] [facility] [facility] [address] [address] 03/26/2021 00:00:00 03/26/2021 13:21:21 [id number] [facility] [address] [place] [address] [address] 07/31/2021 00:00:00 07/31/2021 10:17:57 [id number] [facility] [address] [place] [address] [address] 11/07/2021 00:00:00 11/07/2021 10:52:56 [id number] [facility] [address] [place], [place] [address] [address] 03/20/2022 00:00:00 03/20/2022 14:35:14 [id number] [facility] [address] [place] [address] [address] 07/03/2022 00:00:00 07/03/2022 15:33:58 [id number] [facility] [address] [place] [address] 10/30/2022 00:00:00 10/30/2022 16:39:13 [id number] Hayley Fonseca, HARNESS PREPARER-C [facility] Internal Med [place] [address] [place] [address] 12/25/2022 11:12:18 12/25/2022 11:45:36 Hyperlipidemia 54327398 E78.5 on atorvastat in Multiple joint pain 3567 8005 M25.50 was following rheum, now is doing better, no longer on meds/follo wing them Menorrhagia 290053689 N9 2.0 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 Thrasher at [facility]/p hyst Asthma 117231228 J45.90 9 recommend she take her Advair as prescribed on albuterol prnget re-establi shed with pulm Sleep apnea 64555338 G47 .30 is s/p sleep study no JAMILA, but could be checked for narcolepsy - she declines referral for MSLT or for sleep specialist at this time Chronic ab dominal pain 223321230 R10.9 Follows GI- Dr. 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 Johnson Cervical radiculopathy 10828237 M54.12 following neurosurge ry- Dr. Guevara s/p cervical fusion 06/2021 Prediabetes 762127064 R7 3.03 start ozempic per her request pt is aware of side effects, risks, benefitspt denies any personal or family history of MEN II or MTC, denies and personal history of pancreatit ispt knows to call the office if any severe n/v or abdominal pain she will call us when she gets meds to be scheduled for teaching Nonalcohol ic steatohepatitis [id number] K75.81 Follows [facility] hepatology - Dr. Menon Body mass index 25-29 - overweight 120539223 Z68.29 recommend healthy, well balanced mealsfocus on lean meats, fresh vegetables , fresh fruits, whole grainsredu ce fast/proce ssed foods or eating out to no more than 1-2 times per weekaim to get 30 min of exercise most days of the week- walking is a great choice Chronic low back pain 27 5377896 M54.50 wants new pain management referral in [facility] d PT- she declinesER precaution s Screening mammography 24 921929 Z12.31 [id number] Jo Burks NP [facility] 2043 [facility], [address] [place] [address] 04/08/2023 15:58:21 04/08/2023 16:43:25 [id number] Dion Bonilla MD [facility] [address] [facility] [address] [place] [address] 05/26/2023 16:28:58 05/26/2023 17:01:12 Kidney stone 91206913 N20.0 Hx of stones, check kub. Urinary incontinence 165 112790 R32 MOstly stress, went over conservati ve measures including pelvic floor exercises and timed voiding will call if wants PT. 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 Juan Francisco Martinez Mixed anxi ety and depressive disorder 581321679 F41.8 now following psychiatry - Jo at [place] duloxetine , wellbutrin call office if any change in mood or behavior Cardiac dipak colón in situ 974268047 Z95.[address] Johnson Cervical radiculopathy 24861858 M54.12 following neurosurge ry- Dr. Guevara s/p cervical fusion 1agai n recommend she make a followup appt with her neurosurge on- this was recommende d previously and she did not goER precaution s Prediabetes 362842416 R7 3.03 insurance will not cover injectable sshe is working on diet/exerc ise Nonalcohol ic steatohepatitis 121673294 K75.81 Follows [facility] hepatology - Dr. Menon Body mass index 25-29 - overweight 662390299 Z68.29 recommend healthy, well balanced mealsfocus on lean meats, fresh vegetables , fresh fruits, whole grainsredu ce fast/proce ssed foods or eating out to no more than 1-2 times per weekaim to get 30 min of exercise most days of the week- walking is a great choice Chronic low back pain 27 2419054 M54.50 wants new pain management referral in [facility] le- referred to [facility] but she decided not to faiza cyr PT- she declinesER precaution s Screening mammography 24 186275 Z12.31 [id number] Jo Burks NP [facility] [address] [address] 09/18/2023 09:43:32 09/18/2023 10:33:40 [id number] Lupe Chase APRN [facility] Internal Med [facility] 2043 [facility], [facility] 15 [place] [address] 01/20/2024 16:42:46 01/20/2024 17:19:13 Hyperlipidemia 40358435 E78.5 Mixed anxi ety and depressive disorder 476479802 F41.8 Fatigue 47857520 R53.83 Asthma 041827242 J45.90 9 Essential hypertension 36646674 I10 Mass of upper limb 31180 5008 R22.32 Infection of big toe 309 954833 L08.9 [id number] oJ Burks NP [facility] [address] [facility], [facility] [address] [place] [address] 01/28/2024 11:36:00 01/28/2024 12:24:25 [id number] Rich Lockwood DPM [facility] Podiatry [place] [address] [facility], [facility] 4 [place] [address] 02/12/2024 15:23:32 02/13/2024 09:05:12 Ingrowing nail of toe of right foot 6298730047 3301501 L60.0 great toe, medial borderpart ial matrixecto my performed todaywound care reviewedPa tient is to soak in warm Epsom salt soaks math for approximat nalini 20 min daily for 5-7 days until infection has resolved. Patient is to dress the wound daily with topical antibiotic ointment and Band-Aid. Patient to monitor for signs of infection, if worsens seek medical attention at the nearest ER.Follow- up in 10 days [id number] Rich Lockwood DPM [facility] Podiatry [place] [address] [place] [address] 02/23/2024 15:50:23 02/23/2024 18:00:13 Ingrowing nail of toe of right foot 5518698405 1194349 L60.0 great toe, medial borderpart ial matrixecto my -- healingwou nd care reviewedPa tient is to soak in warm Epsom salt soaks math for approximat nalini 20 min daily for 5-7 days until infection has resolved. Patient is to dress the wound daily with topical antibiotic ointment and Band-Aid. Patient to monitor for signs of infection, if worsens seek medical attention at the nearest ER.Follow- up in 7 days [id number] Lupe Chase APRN [facility] Internal Med [facility] 2043 [facility]., [facility] 15 [place] [address] 05/10/2024 11:36:27 05/10/2024 12:11:55 Screening mammography 94487135 Z12.31 Asthma 543264873 J45.90 9 [id number] Lupe Chase APRN [facility] Internal Med [facility] [address] [facility] [place] [address] 06/16/2024 08:20:27 06/16/2024 08:53:54 Asthma 476882026 J45.656 [id number] Mariola Lal NP [facility] Pulmonolo gy [place] [address] [place] [address] 07/15/2024 09:34:14 07/15/2024 10:20:49 Asthma 989094803 J45.31 ACT on no maintenanc e inhaler: 06PFT completed on 05/2024-wi ll get old records requestedL ab work ordered to r/o sob triggers and causesAsth ma Action plan discussedF lovent rx today-awar e to rinse mouth after useprednis one po due to chest tightness and scattered wheezeUse Albuterol only PRN-if using more discussed need for re-evaluat ionIn depth discussion about s/s that require evaluation Return in 1 year-soone r if new or worsening of s/s Dyspnea on exertion 6084 5006 R06.09 Lab work todayPFT old record will be obtained as well as CXR doneAware to use Albuterol inhaler as needed-ok to use when sobEncoura ge patient to remain activefoll ow-up in 1 month-soon er for any changes in breathing and increase use of inhaler [id number] Lupe Chase APRN [facility] Internal Med [facility] [address] [address] 08/23/2024 15:48:14 08/23/2024 16:47:41 Butterfly rash 69738174 R21 Administra tion of influenza vaccine 11170891 Z23 Urinary incontinence 165 578068 R32 Health Concerns Section Related Observation LastModified by Organization Detai ls LastModified Time None Recorded Concern Status LastModified by Organization Details LastModified Time None Recorded Advance Directives Directive N: Payers Encounter Date Sequence Insurance Name Policy Number Policy Lebron Covered Member ID Lebron Member ID Guarantor Name 02/23/2024 1 [place] [id number] Remedios L Mowell [id number] Remedios L Mowell 05/10/2024 1 [place] [id number] Remedios L Mowell [id number] Remedios L Mowell 06/16/2024 1 [place] [id number] Remedios L Mowell [id number] Remedios L Mowell 07/15/2024 1 [place] [id number] Remedios L Mowell [id number] Remedios L Mowell 08/23/2024 1 [place] [id number] Remedios L Mowell [id number] Remedios L Mowell Notes Date Note Type Note Provider Name and Address Organization Details Recorded Time 02/23/2024 text/html . Patient is a 48-year-old female who returns the office for ingrown toenail of the right great toe medial corner. Patient states she has had some minor pain and she is still having some drainage. Patient denies any fever, chills, nausea vomiting. Patient denies any redness to the area. I did recommend a short course of antibiotics just to help it heal up as she is still having some minor discomfort she denies any other complaints. Rich Lockwood DPM [address] [facility], [facility] [address], [place], [address], [employer] 02/23/2024 16:31:40 05/10/2024 text/html Remedios presents toklarissa for dyspnea, throat pain. She states that she is constantly feeling short of breath. She has been to see cardiology and ED for these episodes. Lupe Chase APRN [address] [facility], [facility] [address], [place], [address], [employer] 05/10/2024 12:08:29 06/16/2024 text/html Remedios presents ken for 3 month follow up. She was wheezing, coughing with no results. She states that she was in the ED at [facility]. She was not told the results of her testing there. And was not sent home with any prescriptions. 05/10/2024my presents today for dyspnea, throat pain. She states that she is constantly feeling short of breath. She has been to see cardiology and ED for these episodes. Lupe Chase APRN [address], [address], [place], [address], [facility] [employer] 06/16/2024 08:50:47 07/15/2024 text/html Asthma F/UReport ed bypatient.Severity :not able to sleep during episode;symptoms cause awakening from sleep;interferes with daily activities Context:worsening Associated Symptoms:no post nasal drip; no edema; no chest pain; no paroxysmal nocturnal dyspnea; no sputum production; no hemoptysis; no sleep attacks;dyspnea exertional;cough non-productive;whe ezing exertional;daytime somnolence;GERD Prior History:prior hospitalization/ER visits for asthma; oral steroids have been used for treatment; last visit: (05/2024)Notes:vira rodriguez notes has had pft in past and told she has asthmashe notes a recent pft at [facility] but unsure findingsgerardo notes worsening of her breathing-did not have a maintenance inhaler-review of old visit last year shows was rx'd onehas been to ER several times-feels tightness all the time with breathing-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 She states that the rash has been going on and off for the past couple of months, she states that it has been getting worse lately. She also states that she has been having issues of incontinence episodes that are embarrassing. 06/16/2024my presents today for 3 month follow up. She was wheezing, coughing with no results. She states that she was in the ED at [facility]. She was not told the results of her testing there. And was not sent home with any prescriptions. 05/10/2024my presents today for dyspnea, throat pain. She states that she is constantly feeling short of breath. She has been to see cardiology and ED for these episodes. Lupe Chase APRN [address], [place], [address], [place] [facility] 08/24/2024 08:38:02 OBGyn Episode No OBEpisode recorded.
--- OUTSIDE RECORDS SUMMARY | 2025-01-06 16:19 | XMS_ITS | CONTINUITY OF CARE DOCUMENT ---
Author Name yonny blancas Address Unknown Organization [facility] Address [address] [address] [place] [address] Phone [phone] Care Team Providers Care Nutritional Assistant Name Role Phone Finn Johnson MD Unavailable [phone] Matilda CHILDRESSP, Almas Unavailable Matilda CORNEJO, Almas Unavailable PROBLEMS Condition Status Date Provider Notes Lower extremity edema, bilateral active Teena Shaw SICK SINUS SYNDROME active Kerry Anderson HTN-02/21ECHO EF 60-01/20ECHO EF 60-05/19ECHO EF 60, PULM HTN, completed - Finn Johnson MD S/P ST KI DC PM GEN CHANGE 05/20/2011/ Gen change DC PM Biotronik 03/24/23 ( NOT MRI SAFE/SCHULTZ LEADS) active Hailey Porter CAD-07/18 CAROTID NEG completed - Finn Johnson MD HTN - 01/2010 MARIBELL DUP NEG completed 02/24 - Timi Roblesi PALPITATIONS active Jae Miller Shortness of breath active Venkatesh ryan MD Numbness, left extremities completed 02/04 - Juan Manuel Toledo MD Dizziness completed - Jae Miller Sleep apnea active Lynette Salazar MD SVT S/P ABLATION 08/2019 active Jae ludwig Exposure to SARS-associated coronavirus active Jae Miller Hypertension active Shruthi Gallagher Chronic venous hypertension (idiopathic) without complications of bilateral lower extremity active Albert Martinri Hyperlipidemia active Albert Stacy Mitral regurgitation active Timi Ross Headache completed - Jae Miller Tobacco use quit active Finn Johnson MD CHEST PAIN - 04/2008 CATH NEG active Alexan mario Angela SYNCOPE active Jae Martinezberg ENCOUNTERS Date Type Provider Location Encounter Diag nosis - In-person encounter Office Visit Venkatesh Carbone MD [facility] Mitral regurgitation - In-person encounter Office Visit Finn Johnson MD [facility] - In-person encounter Office Visit Finn Johnson MD [facility] - In-person encounter Office Visit Finn Johnson MD [facility] Hyperlipidemia - In-person encounter Office Visit Finn Johnson MD [facility] Chronic venous hypertension (idiopathic) without complications of bilateral lower extremity - In-person encounter Office Visit Venkatesh Carbone MD [facility] HTN - 01/2010 MARIBELL DUP NEG - In-person encounter Office Visit Finn Johnson MD [facility] - In-person encounter Office Visit Venkatesh Carbone MD [facility] - In-person encounter Office Visit Venkatesh Carbone MD [facility] - In-person encounter Office Visit Finn Johnson MD [facility] Hypertension - In-person encounter Office Visit Finn Johnson MD [facility] HeadacheDizzinessExposure to SARS-associated coronavirus - In-person encounter Office Visit Venkatesh Carbone MD [facility] - In-person encounter Office Visit Finn Johnson MD [facility] SVT S/P ABLATION 2018 - In-person encounter Office Visit Venkatesh Carbone MD [facility] - In-person encounter Office Visit Venkatesh Carbone MD [facility] SVT S/P ABLATION 08/2019 - In-person encounter Office Visit Finn Johnson MD [facility] Tobacco use quit - In-person encounter Office Visit Juan Manuel Toledo MD [facility] Numbness, left extremities - In-person encounter Office Visit Lynette Salazar MD [facility] Sleep apnea - In-person encounter Office Visit Finn Johnson MD [facility] SYNCOPECHEST PAIN - 04/2008 CATH NEGS/P ST KI DC PM GEN CHANGE 05/20/2011/ Gen change DC PM Biotronik 03/24/23 ( NOT MRI SAFE/SCHULTZ LEADS)Tobacco use quitPALPITATIONS - In-person encounter Office Visit Finn Johnson MD [facility] CAD-07/18 CAROTID NEGHTN - 01/2010 MARIBELL DUP NEG - In-person encounter Office Visit Juan Manuel Toledo MD [facility] - In-person encounter Office Visit Venkatesh Carbone MD [facility] Shortness of breathHeadache - In-person encounter Office Visit Finn Johnson MD [facility] - In-person encounter Office Visit Finn Johnson MD [facility] - In-person encounter Office Visit Finn Johnsno MD [facility] - In-person encounter Office Visit Finn Johnson MD [facility] - In-person encounter Office Visit Diego Segura MD [facility] - In-person encounter Office Visit Finn Johnson MD [facility] - In-person encounter Office Visit Brenda Melgar MD [facility] - In-person encounter Office Visit Finn Johnson MD [facility] - In-person encounter Office Visit Finn Johnson MD [facility] - In-person encounter Office Visit RAHUL ROSALES MD [facility] - In-person encounter Office Visit Finn Johnson MD [facility] Tobacco use quit - In-person encounter Office Visit Ray Mon MD [facility] - In-person encounter Office Visit Finn Johnson MD [facility] - In-person encounter Office Visit Finn Johnson MD [facility] CHEST PAIN - 04/2008 CATH NEGS/P ST KI DC PM GEN CHANGE 05/20/2011/ Gen change DC PM Biotronik 03/24/23 ( NOT MRI SAFE/SCHULTZ LEADS) - In-person encounter Office Visit Finn Johnson MD [facility] - In-person encounter Office Visit Finn Johnson MD [facility] HTN-02/21ECHO EF 60-4/10ECHO EF 60-8/07ECHO EF 60, PULM HTN, VITAL SIGNS Date Observation Value Provider Body Mass Index (Ratio) 32.68 kg/m2 Timi Ross blood pressure, cuff size regular Ke rri Cristianuenenfelder blood pressure, diastolic 72 mm[Hg] Ke rri Gruenenfelder blood pressure, systolic 124 mm[Hg] Ker ri Cristianuenenfelder oxygen saturation, oximetry 97 % Alicja Maldonadonegregelder respiratory rate E&M 14 /min Alicja Wallis janelleenenfelder pulse rate 73 /min Alicja Kay [facility] weight E&M 241 [lb_av] Alicja Barretoe [facility] height E&M 72 [in_i] Alicja Barretoe [facility] Body Mass Index (Ratio) 31.73 kg/m2 Nish as Gladis blood pressure, cuff size large [facility] blood pressure, diastolic 80 mm[Hg] Ke rri [facility] blood pressure, systolic 146 mm[Hg] [facility] oxygen saturation, oximetry 100 % Alicja [facility] respiratory rate E&M 12 /min Alicja Wallis [facility] pulse rate 75 /min Alicja Kay [facility] weight E&M 234 [lb_av] Alicja Kay [facility] height E&M 72 [in_i] Alicja Kay [facility] Body Mass Index (Ratio) 32.00 kg/m2 Grah am Tawanna blood pressure, diastolic 87 mm[Hg] Pallavi Matthews blood pressure, systolic 123 mm[Hg] Sahara Matthews pulse rate 67 /min Carol Matthews oxygen saturation, oximetry 94 % Carol Matthews weight E&M 236 [lb_av] Carol Matthews blood pressure, cuff size large An skylar Matthews height E&M 72 [in_i] Carol Matthews Body Mass Index (Ratio) 31.73 kg/m2 Grah am Tawanna blood pressure, diastolic 104 mm[Hg] Kristen [employer]kLogic blood pressure, systolic 137 mm[Hg] Patricia blood pressure, cuff size regular Ja blood pressure, diastolic 104 mm[Hg] John et blood pressure, systolic 137 mm[Hg] Cosme pulse rate 110 /min Vick oxygen saturation, oximetry 100 % Vick respiratory rate E&M 16 /min Vick weight E&M 234 [lb_av] Vick height E&M 72 [in_i] [facility] Body Mass Index (Ratio) 31.33 kg/m2 Yves Stacy blood pressure, diastolic 109 mm[Hg] Pallavi skylar blood pressure, systolic 158 mm[Hg] Any gerardo oxygen saturation, oximetry 100 % Carol pulse rate 72 /min Carol weight E&M 231 [lb_av] Acrol blood pressure, cuff size large An skylar height E&M 72 [in_i] Carol Byron blood pressure, diastolic 94 mm[Hg] Kristen [facility] blood pressure, systolic 146 mm[Hg] Patricia [facility] Body Mass Index (Ratio) 30.38 kg/m2 Timi Ross blood pressure, diastolic 94 mm[Hg] Pallavi skylar blood pressure, systolic 146 mm[Hg] Any a Byron pulse rate 66 /min Carol oxygen saturation, oximetry 98 % Carol weight E&M 224 [lb_av] Carol Byron blood pressure, cuff size large An skylar Matthews height E&M 72 [in_i] Carolgerardo Matthews Body Mass Index (Ratio) 29.97 kg/m2 Timi Ross blood pressure, diastolic 85 mm[Hg] Li nkLogic blood pressure, systolic 139 mm[Hg] Patricia kLogic blood pressure, diastolic 85 mm[Hg] Татьяна austin [place] blood pressure, systolic 139 mm[Hg] Misha ernesto [place] oxygen saturation, oximetry 100 % [facility] pulse rate 83 /min [facility] respiratory rate E&M 16 /min Lien lynn [place] blood pressure, cuff size large Татьяна austin [place] weight E&M 221 [lb_av] [facility] height E&M 72 [in_i] [facility] Body Mass Index (Ratio) 29.29 kg/m2 Rakan Carbone MD blood pressure, cuff size regular Je nnifer Fendler C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 blood pressure, diastolic 114 mm[Hg] Je nnifer Fendler C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 blood pressure, systolic 186 mm[Hg] Lisset whittakerer Fendler C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 respiratory rate E&M 18 /min Jennife r Fendler C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 pulse rate 92 /min Ines Fendle r C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 weight E&M 216 [lb_av] Ines Fendle r C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 height E&M 72 [in_i] Ines Fendle r C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 Body Mass Index (Ratio) 29.29 kg/m2 Triny Gallagher blood pressure, diastolic 108 mm[Hg] Li nkLogic blood pressure, systolic 150 mm[Hg] Patricia kLogic blood pressure, diastolic 108 mm[Hg] Ca therine Ryan blood pressure, systolic 150 mm[Hg] Cat herine Ryan oxygen saturation, oximetry 97 % Vanessa Palermo respiratory rate E&M 16 /min Catheri ne Ryan pulse rate 74 /min Vanessa Palermo weight E&M 216 [lb_av] Vanessa Ryan blood pressure, cuff size regular Ca therine Ryan height E&M 72 [in_i] Vanessa Ryan weight E&M 222 [lb_av] Meghann Gunterlobito Body Mass Index (Ratio) 26.31 kg/m2 Edmond argueta Angela blood pressure, cuff size regular Cy ntelliot Eden blood pressure, diastolic 101 mm[Hg] Cy nthia [place] blood pressure, systolic 154 mm[Hg] Jesika sami [place] oxygen saturation, oximetry 98 % Sintia Eden respiratory rate E&M 16 /min Sintia Eden pulse rate 96 /min Sintia Campbel l weight E&M 194 [lb_av] Sintia Campbel l height E&M 72 [in_i] Sintia Campbel l Body Mass Index (Ratio) 30.11 kg/m2 Taew josé Solomon blood pressure, diastolic 95 mm[Hg] Rh onda Pam blood pressure, systolic 140 mm[Hg] Rho emiliano Orozco oxygen saturation, oximetry 98 % Emmy Orozco pulse rate 86 /min Emmy Orozco weight E&M 222 [lb_av] Emmy Pam blood pressure, cuff size regular Rh onda Pam respiratory rate E&M 16 /min Emmy Orozco height E&M 72 [in_i] Emmy Orozco Body Mass Index (Ratio) 28.48 kg/m2 Finn Johnson MD weight E&M 210 [lb_av] Jae Lundb erg height E&M 72 [in_i] Jae Johnson erg Body Mass Index (Ratio) 28.21 kg/m2 Jord en Edmond blood pressure, cuff size large Ra griselda Slusser blood pressure, diastolic 76 mm[Hg] Ra griselda Slusser blood pressure, systolic 110 mm[Hg] Rac hel Slusser respiratory rate E&M 16 /min Quyen Slusser oxygen saturation, oximetry 98 % Quyen Slusser pulse rate 60 /min Quyen Slusser weight E&M 208 [lb_av] Quyen Slusser height E&M 72 [in_i] Quyen Slusser Body Mass Index (Ratio) 28.88 kg/m2 Jord en Edmond pulse rate 67 /min Sintia Edisbel l oxygen saturation, oximetry 96 % Sintiasami Eden respiratory rate E&M 16 /min Sintiasami [place] blood pressure, cuff size regular Cy holly [place] blood pressure, diastolic 80 mm[Hg] Cy ntelliot [place] blood pressure, systolic 130 mm[Hg] Jesika sami [place] weight E&M 213 [lb_av] Sintia Campbel l height E&M 72 [in_i] Sintia Campbel l Body Mass Index (Ratio) 25.90 kg/m2 Finn Johnson MD blood pressure, diastolic 80 mm[Hg] Da ashley Frances blood pressure, systolic 122 mm[Hg] Dac ia Frances oxygen saturation, oximetry 97 % Leyla Frances respiratory rate E&M 16 /min Leyla V oss pulse rate 76 /min Leyla Frances weight E&M 191 [lb_av] Leyla Frances height E&M 72 [in_i] Leyla Frances Body Mass Index (Ratio) 27.12 kg/m2 Melo [place] blood pressure, cuff size large Ke rri Ericanenfelder blood pressure, diastolic 80 mm[Hg] Ke rri Ericanenfelder blood pressure, systolic 146 mm[Hg] Uma Townsend oxygen saturation, oximetry 99 % Alicja Townsend respiratory rate E&M 20 /min Alicja Wallis janelleenegregjazmine pulse rate 85 /min Alicja Kay er weight E&M 200 [lb_av] Alicja Barretoe er height E&M 72 [in_i] Alicja Kay [facility] Body Mass Index (Ratio) 27.80 kg/m2 Christiansaqib zekesaqib Ortiz blood pressure, diastolic 120 mm[Hg] Hemanth [facility] blood pressure, systolic 160 mm[Hg] Jose Francisco holley [place] respiratory rate E&M 16 /min [facility] oxygen saturation, oximetry 95 % [facility] pulse rate 73 /min [facility] weight E&M 205 [lb_av] [facility] height E&M 72 [in_i] [facility] Body Mass Index (Ratio) 27.80 kg/m2 Edmond Miller blood pressure, resting Yes Laurie Dominguez blood pressure, diastolic 99 mm[Hg] Conor Dominguez blood pressure, systolic 155 mm[Hg] Bess Dominguez oxygen saturation, oximetry 92 % Caroline Dominguez respiratory rate E&M 18 /min Apolinar Dominguez pulse rate 74 /min Caroline tristan weight E&M 205 [lb_av] Caroline tristan height E&M 72 [in_i] Caroline tristan blood pressure, diastolic 90 mm[Hg] Conor Dominguez blood pressure, systolic 134 mm[Hg] Bess Dominguez pulse rate 65 /min Caroline tristan oxygen saturation, oximetry 96 % Caroline Dominguez respiratory rate E&M 18 /min Apolinar Dominguez Body Mass Index (Ratio) 29.32 kg/m2 Laurie Dominguez weight E&M 216.2 [lb_av] Caroline leija blood pressure, diastolic, left arm 126 m m[Hg] Gerri Herman blood pressure, systolic, left arm 185 mm [Hg] Gerri Herman blood pressure, diastolic, right arm 126 mm[Hg] Gerri Herman blood pressure, systolic, right arm 187 m m[Hg] Gerri Herman blood pressure, diastolic 126 mm[Hg] Me neil Herman blood pressure, systolic 185 mm[Hg] Symone shante Herman respiratory rate E&M 18 /min Gerri Herman pulse rate 75 /min Gerri Herman oxygen saturation, oximetry 99 % Gerri Herman Body Mass Index (Ratio) 29.64 kg/m2 Justine ssa Herman weight E&M 218.6 [lb_av] Gerri Herman Body Mass Index (Ratio) 29.16 kg/m2 Justine ssa Patiño blood pressure, diastolic 115 mm[Hg] Wy neil Patiño blood pressure, systolic 153 mm[Hg] Symone shante Patiño pulse rate 80 /min Gerri Patiño oxygen saturation, oximetry 98 % Gerri Patiño respiratory rate E&M 16 /min Gerri Patiño weight E&M 215 [lb_av] Gerri Patiño Body Mass Index (Ratio) 29.70 kg/m2 Anea thomas Brown blood pressure, diastolic, left arm 106 m m[Hg] Aneatris Brown blood pressure, systolic, left arm 150 mm [Hg] Aneatris blood pressure, diastolic, right arm 107 mm[Hg] Aneatris Brown blood pressure, systolic, right arm 154 m m[Hg] Aneatris Brown blood pressure, diastolic 107 mm[Hg] An eatris [facility] blood pressure, systolic 154 mm[Hg] Ane atris [facility] pulse rate 73 /min Aneatris oxygen saturation, oximetry 99 % Aneatris respiratory rate E&M 17 /min Aneatri s weight E&M 219 [lb_av] Aneatris Body Mass Index (Ratio) 28.75 kg/m2 Toan Townsend blood pressure, diastolic 89 mm[Hg] Danilo Townsend blood pressure, systolic 134 mm[Hg] Uma Townsend pulse rate 69 /min Alicja Kay [facility] oxygen saturation, oximetry 98 % Alicja Townsend respiratory rate E&M 16 /min Alicja zuluaga weight E&M 212 [lb_av] Alicja Kay er blood pressure, diastolic, left arm 90 mm [Hg] Eunice Stueber blood pressure, systolic, left arm 142 mm [Hg] Eunice Stueber blood pressure, diastolic, right arm 92 m m[Hg] Eunice Stueber blood pressure, systolic, right arm 152 m m[Hg] Eunice Stueber Body Mass Index (Ratio) 28.50 kg/m2 Winnie a Stueber blood pressure, diastolic 90 mm[Hg] Ta emma Stueber blood pressure, systolic 142 mm[Hg] Tena ya Stueber pulse rate 62 /min Eunice Stueber oxygen saturation, oximetry 99 % Eunice Andres respiratory rate E&M 16 /min Eunice loyd weight E&M 209.4 [lb_av] Eunice Andres Body Mass Index (Ratio) 26.68 kg/m2 Cruzjean carlos irvin Crisostomo pulse rate, standing 100 /min Jayden Crisostomo blood pressure, diastolic, standing 91 mm [Hg] Jayden Crisostomo blood pressure, systolic, standing 123 mm [Hg] [facility] blood pressure, diastolic, supine 103 mm[ Hg] Cruzpallavi Crisostomo blood pressure, systolic, supine E&M 150 mm[Hg] Jayden Crisostomo blood pressure, diastolic 96 mm[Hg] Ledesma blood pressure, systolic 138 mm[Hg] Cruz call Crisostomo pulse rate 57 /min [facility] Crisostomo oxygen saturation, oximetry 98 % [facility] E&M 16 /min [facility] weight E&M 196 [lb_av] Cruzpallavi Crisostomo Body Mass Index (Ratio) 26.15 kg/m2 James bryan Crisostomo blood pressure, diastolic 72 mm[Hg] Bowden Crisostomo blood pressure, systolic 96 mm[Hg] Cruz Crisostomo pulse rate 65 /min [facility] Crisostomo oxygen saturation, oximetry 98 % [facility] respiratory rate E&M 16 /min [facility] weight E&M 192.13 [lb_av] Jayden olivo blood pressure, diastolic, left arm 76 mm [Hg] Octavio Burks RN blood pressure, systolic, left arm 122 mm [Hg] Octavio Burks RN blood pressure, diastolic, right arm 82 m m[Hg] Octavio Burks RN blood pressure, systolic, right arm 118 m m[Hg] Octavio Burks RN blood pressure, diastolic 76 mm[Hg] John Burks HERRERA blood pressure, systolic 122 mm[Hg] Octavio Burks HERRERA pulse rate 76 /min Octavio Burks HERRERA oxygen saturation, oximetry 98 % Octavio Burks HERRERA respiratory rate E&M 16 /min Octavio peña HERRERA Body Mass Index (Ratio) 26.41 kg/m2 Octavio Burks HERRERA weight E&M 194 [lb_av] Octavio Burks HERRERA height E&M 72 [in_i] Octavio Burks HERRERA blood pressure, diastolic, left arm 110 m m[Hg] Joyce Lucio blood pressure, systolic, left arm 150 mm [Hg] Joyce Lucio blood pressure, diastolic, right arm 108 mm[Hg] Joyce Lucio blood pressure, systolic, right arm 158 m m[Hg] Joyce Lucio blood pressure, diastolic 110 mm[Hg] Estuardo Lucio blood pressure, systolic 150 mm[Hg] Bea Lucio pulse rate 68 /min Joyce Lucio oxygen saturation, oximetry 98 % Joyce Lucio respiratory rate E&M 16 /min Joyce crowley weight E&M 189 [lb_av] Joyce Lucio blood pressure, diastolic, left arm 94 mm [Hg] Jayden Crisostomo blood pressure, systolic, left arm 137 mm [Hg] Jayden Crisostomo blood pressure, diastolic, right arm 97 m m[Hg] Jayden Crisostomo blood pressure, systolic, right arm 147 m m[Hg] Jayden Crisostomo blood pressure, diastolic 97 mm[Hg] Ledesma blood pressure, systolic 147 mm[Hg] Cruz Crisostomo pulse rate 65 /min Jayden Crisostomo oxygen saturation, oximetry 10 % Jayden Crisostomo respiratory rate E&M 16 /min Denyean Crisostomo weight E&M 200 [lb_av] Denyean Crisostomo blood pressure, diastolic 96 mm[Hg] He ather Blunt blood pressure, systolic 140 mm[Hg] Hegerardo ther Blunt pulse rate 72 /min Ernestine Blunt oxygen saturation, oximetry 99 % Ernestine Blunt respiratory rate E&M 16 /min Ernestine Blunt weight E&M 199 [lb_av] Ernestine Blunt blood pressure, diastolic, standing 80 mm [Hg] Brittannie Jeromy blood pressure, systolic, standing 120 mm [Hg] Brittannie Jeromy blood pressure, diastolic, sitting 82 mm[ Hg] Brittannie Lancaster blood pressure, systolic, sitting 128 mm[ Hg] Brittannie Jeromy blood pressure, scanlon tolic, supine, right arm 88 [facility] Jeromy blood pressure, syst olic, supine, r arm 136 [facility] Lancaster blood pressure, diastolic, left arm 88 mm [Hg] Brittannie Lancaster blood pressure, systolic, left arm 128 mm [Hg] Brittannie Lancaster blood pressure, diastolic, right arm 82 m m[Hg] Brittannie Lancaster blood pressure, systolic, right arm 128 m m[Hg] Brittannie Lancaster blood pressure, diastolic, supine 82 mm[H g] Brittannie Jeromy blood pressure, systolic, supine E&M 128 mm[Hg] Brittannie Lancaster pulse rate 93 /min Brittannie Dard en oxygen saturation, oximetry 99 % Brittannie Jeromy respiratory rate E&M 18 /min Brittan lupillo Jeromy weight E&M 197 [lb_av] Brittannie Dard en blood pressure, diastolic, left arm 100 m m[Hg] Octavio Burks RN blood pressure, systolic, left arm 148 mm [Hg] Octavio Burks RN blood pressure, diastolic, right arm 98 m m[Hg] Octavio Burks RN blood pressure, systolic, right arm 143 m m[Hg] Octavio Burks RN blood pressure, diastolic 100 mm[Hg] John Burks RN blood pressure, systolic 148 mm[Hg] Octavio Burks RN pulse rate 70 /min Octavio Burks RN oxygen saturation, oximetry 100 % Octavio Burks RN respiratory rate E&M 16 /min Octavio peña RN weight E&M 188 [lb_av] Octavio Burks RN blood pressure, diastolic 82 mm[Hg] John Burks RN blood pressure, systolic 126 mm[Hg] Octavio Burks RN pulse rate 68 /min Octavio Burks RN oxygen saturation, oximetry 99 % Octavio Burks RN respiratory rate E&M 20 /min Octavio peña RN weight E&M 203 [lb_av] Octavio Burks RN blood pressure, diastolic 121 mm[Hg] Roldan Hopkins blood pressure, systolic 201 mm[Hg] Vicente pulse rate 69 /min Tameka Hopkins oxygen saturation, oximetry 98 % Tameka Hopkins respiratory rate E&M 16 /min Tameka campos weight E&M 209 [lb_av] Tameka Hopkins blood pressure, diastolic, left arm 73 mm [Hg] Yunior Corona blood pressure, systolic, left arm 168 mm [Hg] Yunior Corona blood pressure, diastolic, right arm 96 m m[Hg] Yunior Corona blood pressure, systolic, right arm 160 m m[Hg] Yunior Corona pulse rate 60 /min Yunior Corona oxygen saturation, oximetry 100 % Yunior Corona respiratory rate E&M 18 /min Yunior tipton weight E&M 206 [lb_av] Yunior Corona blood pressure, diastolic, left arm 110 m m[Hg] Yunior Corona blood pressure, systolic, left arm 160 mm [Hg] Yunior Corona blood pressure, diastolic, right arm 93 m m[Hg] Yunior Corona blood pressure, systolic, right arm 163 m m[Hg] Yunior Corona pulse rate 60 /min Yunior Corona oxygen saturation, oximetry 99 % Yunior Corona respiratory rate E&M 18 /min Yunior tipton weight E&M 210 [lb_av] Yunior Corona blood pressure, diastolic, left arm 103 m m[Hg] Yunior Corona blood pressure, systolic, left arm 150 mm [Hg] Yunior Corona blood pressure, diastolic, right arm 96 m m[Hg] Yunior Corona blood pressure, systolic, right arm 141 m m[Hg] Yunior Corona pulse rate 86 /min Yunior Corona oxygen saturation, oximetry 100 % Yunior Corona respiratory rate E&M 18 /min Yunior tipton weight E&M 168 [lb_av] Yunior Corona ALLERGIES Allergy Name Onset Date Reaction Criticality Status PENICILLIN V POTASSIUM Hives/Rash Low Criticali ty active RESULTS Date Observation Value Provider Reference Range Interpretation Location prothrombin time (patient) 10.5 s [facility] 9.1-12.0 international normalized ratio (INR) 1.0 [facility] 0.9-1.2 basophil count, absolute 0.0 x10E3/uL [facility] 0.0-0.2 Eosinophil Absolute Count 0.2 X10E3/UL [facility] 0.0-0.4 monocyte count, blood, automated 0.7 X10E3/UL [facility] 0.1-0.9 lymphocyte count, blood, automated 2.6 X10E3/UL [facility] 0.7-3.1 Absolute Neutrophils 4.9 X10E3/UL [facility] 1.4-7.0 basophils as percent of blood leukocytes 1 % [facility] Not Estab. eosinophils as percent of blood leukocytes 2 % [facility] Not Estab. monocytes as percent of blood leukocytes 9 % [facility] Not Estab. lymphocytes as percent of blood leukocytes 31 % [facility] Not Estab. neutrophils as percent of blood leukocytes 57 % [facility] Not Estab. platelet count 297 X10E3/UL [facility] 104-032 3383/11 /07 red blood cell distribution width 12.9 % [facility] 11.7-15.4 mean corpuscular hemoglobin concentration, RBC 33.7 G/DL [facility] 31.5-35.7 mean corpuscular hemoglobin, RBC 31.6 pg [facility] 26.6-33.0 mean corpuscular volume, RBC 94 fL [facility] 79-97 hematocrit, blood 44.8 % [facility] 34.0-46.6 hemoglobin, blood 15.1 g/dL [facility] 11.1-15.9 erythrocyte (RBC) count 4.78 X10E6/UL [facility] 3.77-5.28 leukocyte count, blood 8.5 X10E3/UL [facility] 3.4-10.8 lipoprotein, beta, serum, point, quantitative, calculated 162 mg/dL [facility] 0-99 High HDL cholesterol, serum 49 mg/dL [facility] >39 triglyceride, serum, random 133 mg/dL [facility] 0-149 cholesterol, serum 235 mg/dL [facility] 100-199 High calcium, serum 9.4 mg/dL [facility] 8.7-10.2 carbon dioxide, venous blood 27 mmol/L [facility] 20-29 chloride, serum 99 mmol/L [facility] 96-106 potassium, serum 3.6 mmol/L [facility] 3.5-5.2 sodium, serum 140 mmol/L [facility] 747-240 4661/11 /07 urea nitrogen/creatinine ratio, serum 16 [facility] 9-23 creatinine, serum 1.00 mg/dL [facility] 0.57-1.00 urea nitrogen, blood 16 mg/dL [facility] 6-24 blood glucose, random 81 mg/dL [facility] 70-99 D-dimer quantitative mcg/mL 0.50 MG/L FEU [facility] 0.00-0.49 High ferritin, serum 49 ng/mL [facility] 15-150 free thyroxine index 1.8 [facility] 1.2-4.9 triiodothyronine resin uptake 20 % [facility] 24-39 Low thyroxine, serum, total 9.2 ug/dL [facility] 4.5-12.0 thyroid stimulating hormone, serum 3.840 u[IU]/mL [facility] 0.450-4.500 B-type natriuretic peptide 6.0 pg/mL [facility] 0.0-100.0 iron saturation percent, serum 19 % [facility] 15-55 iron, serum 70 ug/dL [facility] 27-159 iron binding capacity, unsaturated 293 ug/dL [facility] 654-209 0503/09 /24 iron binding capacity, total 363 ug/dL [facility] [phone]/09 /24 alanine aminotransferase (SGPT), serum 30 1/L [facility] 0-32 aspartate aminotransferase (SGOT), serum 22 1/L [facility] 0-40 alkaline phosphatase, serum 132 1/L [facility] 39-117 High bilirubin, serum, total 0.3 mg/dL [facility] 0.0-1.2 albumin/globulin ratio, serum 1.3 [facility] 1.2-2.2 globulin, serum 3.3 [facility] 1.5-4.5 albumin, serum 4.4 g/dL [facility] 3.8-4.8 protein, total, serum 7.7 g/dL [facility] 6.0-8.5 calcium, serum 9.7 mg/dL [facility] 8.7-10.2 carbon dioxide, venous blood 24 mmol/L [facility] 20-29 chloride, serum 97 mmol/L [facility] 96-106 potassium, serum 4.2 mmol/L [facility] 3.5-5.2 sodium, serum 138 mmol/L [facility] 258-592 2386/09 /24 urea nitrogen/creatinine ratio, serum 18 [facility] 9-23 eGFR if 70 mL/min/{1.7 3_m2} [facility] >59 eGFR if not 60 mL/min/{1.7 3_m2} [facility] >59 creatinine, serum 1.10 mg/dL [facility] 0.57-1.00 High urea nitrogen, blood 20 mg/dL [facility] 6-24 blood glucose, random 100 mg/dL [facility] 65-99 High basophil count, absolute 0.1 x10E3/uL [facility] 0.0-0.2 Eosinophil Absolute Count 0.1 X10E3/UL [facility] 0.0-0.4 monocyte count, blood, automated 0.9 X10E3/UL [facility] 0.1-0.9 lymphocyte count, blood, automated 1.7 X10E3/UL [facility] 0.7-3.1 Absolute Neutrophils 12.4 X10E3/UL [facility] 1.4-7.0 High basophils as percent of blood leukocytes 0 % [facility] Not Estab. eosinophils as percent of blood leukocytes 1 % [facility] Not Estab. monocytes as percent of blood leukocytes 6 % [facility] Not Estab. lymphocytes as percent of blood leukocytes 11 % [facility] Not Estab. neutrophils as percent of blood leukocytes 81 % [facility] Not Estab. platelet count 290 X10E3/UL [facility] [phone]/09 /24 red blood cell distribution width 13.3 % [facility] 11.7-15.4 mean corpuscular hemoglobin concentration, RBC 33.5 G/DL [facility] 31.5-35.7 mean corpuscular hemoglobin, RBC 29.7 pg [facility] 26.6-33.0 mean corpuscular volume, RBC 89 fL [facility] 79-97 hematocrit, blood 45.1 % [facility] 34.0-46.6 hemoglobin, blood 15.1 g/dL [facility] 11.1-15.9 erythrocyte (RBC) count 5.08 X10E6/UL [facility] 3.77-5.28 leukocyte count, blood 15.2 X10E3/UL [facility] 3.4-10.8 High coagulation managed by Jose Casey prothrombin time (patient) 16.0 s Emmy Orozco international normalized ratio (INR) 1.3 Emmy Orozco Normal activated partial thromboplastin time (aPTT) 31.0 s [facility] Units converted. See lab report for original value. calcium, serum 8.6 mg/dL [facility] 8.7-10.2 Low carbon dioxide, venous blood 19 mmol/L [facility] 20-29 Low chloride, serum 109 mmol/L [facility] 96-106 High potassium, serum 4.4 mmol/L [facility] 3.5-5.2 sodium, serum 140 mmol/L [facility] [phone]/10 /29 urea nitrogen/creatinine ratio, serum 14 [facility] 9-23 eGFR if 84 mL/min/{1.7 3_m2} [facility] >59 eGFR if not 73 mL/min/{1.7 3_m2} [facility] >59 creatinine, serum 0.95 mg/dL [facility] 0.57-1.00 urea nitrogen, blood 13 mg/dL [facility] 6-24 blood glucose, random 107 mg/dL [facility] 65-99 High basophil count, absolute 0.0 x10E3/uL [facility] 0.0-0.2 Eosinophil Absolute Count 0.2 X10E3/UL [facility] 0.0-0.4 monocyte count, blood, automated 0.6 X10E3/UL [facility] 0.1-0.9 lymphocyte count, blood, automated 1.7 X10E3/UL [facility] 0.7-3.1 Absolute Neutrophils 5.1 X10E3/UL [facility] 1.4-7.0 basophils as percent of blood leukocytes 0 % [facility] Not Estab. eosinophils as percent of blood leukocytes 3 % [facility] Not Estab. monocytes as percent of blood leukocytes 8 % [facility] Not Estab. lymphocytes as percent of blood leukocytes 22 % [facility] Not Estab. neutrophils as percent of blood leukocytes 67 % [facility] Not Estab. platelet count 270 X10E3/UL [facility] 121-083 6078/10 /29 red blood cell distribution width 13.4 % [facility] 12.3-15.4 mean corpuscular hemoglobin concentration, RBC 34.3 G/DL [facility] 31.5-35.7 mean corpuscular hemoglobin, RBC 31.7 pg [facility] 26.6-33.0 mean corpuscular volume, RBC 93 fL [facility] 79-97 hematocrit, blood 39.7 % [facility] 34.0-46.6 hemoglobin, blood 13.6 g/dL [facility] 11.1-15.9 erythrocyte (RBC) count 4.29 X10E6/UL [facility] 3.77-5.28 leukocyte count, blood 7.6 X10E3/UL [facility] 3.4-10.8 coagulation managed by Octavio Burks RN international normalized ratio (INR) 1.1 Octavio Burks RN Normal prothrombin time (patient) 13.6 s Octavio Burks RN mucus on urinalysis Yes Laurie Pyle RN urine crystals, microscopic moderate Laurie Pyle RN epithelial cells, urine, per microscopy many Laurie Pyle RN casts, urine none Laurie Pyle RN bacteria, urine microscopy moderate Laurie Pyle RN RBC urine by microscopy 40-60 Laurie Pyle RN WBC urine on microscopy none Laurie Pyle RN leukocyte esterase, urine, by dipstick Negative Laurie Pyle RN urobilinogen, urine, semiquantitative (dipstick) normal Laurie Pyle RN nitrite, urine, semiquantitative Negative Laurie Pyle RN RBC, urine, dipstick 250 Laurie Pyle RN bilirubin, urine Negative Laurie Pyle RN ketones, urine, by test strip Negative Laurie Pyle RN glucose, urine, semiquantitative normal Laurie Nicholson HERRERA protein, urine, semiquantitative (dipstick) 25 Laurie Pyle RN pH, urine, semiquantitative 6.5 Laurie Pyle RN specific gravity, urine 1.020 Laurie Pyle RN urine color Yellow Laurie Pyle RN appearance, urine Slightly cloudy Laurie Pyle RN PTT patient 29.4 s Laurie Pyle RN prothrombin time (patient) 10.4 s Laurie Pyle RN international normalized ratio (INR) 1.0 Laurie Pyle RN creatinine, serum 0.96 mg/dL Laurie Pyle RN urea nitrogen, blood 15.1 mg/dL Laurie Pyle RN carbon dioxide, serum, total 26 mmol/L Laurie Pyle chloride, serum 103 mmol/L Laurie Pyle potassium, serum 4.0 mmol/L Laurie Pyle sodium, serum 137 mmol/L Laurie Pyle platelet count 259 10*3/uL Laurie Pyle RN hematocrit, blood 43.0 % Laurie Pyle hemoglobin, blood 14.8 g/dL Laurie Pyle erythrocyte (RBC) count 4.56 10*6/mm3 Laurie Pyle leukocyte count, blood 9.1 10*3/mm3 Laurie Pyle RN HISTORY OF MEDICATION USE Medication Status Instructions Dates Provider Indications Com ments losartan 25 mg tablet active Take 1 tab let by mouth once a day Ines Valdez NP ranolazine 500 mg tablet extended release 12 hr active Take 1 tablet by mouth twice a day Ines Valdez NP prednisone 20 mg tablet active daily Ines Valdez NP albuterol sulfate 90 mcg/actuation HFA aerosol inhaler active as needed Ines Valdez NP albuterol sulfate 2.5 mg/3 mL (0.083 %) solution for nebulization active as needed Ines Valdez NP gabapentin 300 mg capsule active twice a day Ines Valdez NP rosuvastatin 20 mg tablet active Take 1 tablet by mouth once a day 01/11 Finn Johnson MD clopidogrel 75 mg tablet active TAKE 1 TABLET BY MOUTH EVERY DAY 10/22 Randee Wilson Plavix 75 mg tablet completed Take 1 table t by mouth once a day 10/21 - 10/22 Randee Wilson tramadol 100 mg tablet completed Take 1 tablet by mouth every six hours as needed for pain do not drive or use machinery for 12 hours after taking this medication 06/14 - Ines Valdze NP diltiazem HCl 60 mg tablet active Take 1 tablet by mouth twice a day 06/13 Timi Ahmedzai hydrochlorothiazide 25 mg tablet active Take 1 tablet by mouth once a day TAKE 1 TABLET BY MOUTH EVERY DAY 03/28 Finn M Vardi MD Lopressor 100 mg tablet active Take 1 tablet by mouth once a day TAKE 1 TABLET BY MOUTH TWICE A DAY 03/28 Finn Johnson MD oxycodone-acetaminoph en 5-325 mg tablet completed Take 1 tablet by mouth every eight hours as needed for pain do not drive or fly for 24 after taking this medication, do not take tramadol - 06/13 Carol Matthews clindamycin HCl 150 mg capsule completed Take 1 capsule by mouth three times a day 03/24 - 06/13 Carol Matthews Lopressor 50 mg tablet completed TAKE 1 TABLET BY MOUTH TWICE A DAY 06/28 - 03/28 Melba Matthews RN losartan 100 mg tablet completed TAKE 1 TABLET BY MOUTH EVERY EVENING 06/28 - Ines Valdez NP hydrochlorothiazide 25 mg tablet completed TAKE 1 TABLET BY MOUTH EVERY DAY 06/28 - 03/28 Melba Matthews RN bupropion HCl 200 mg tablet sustained-release 12 hr active TAKE 1 TABLET BY MOUTH TWICE DAILY Ines Valdez NP duloxetine 60 mg capsule,delayed release(DR/EC) active daily Ines Valdez NP ProAir HFA 90 mcg/actuation HFA aerosol inhaler completed 2 puff every four to six hours 02/01 - 06/13 Carol Matthews MAGNESIUM 400 MG ORAL TABLET completed 1 tablet by mouth twice a day 10/25 - 04/25 Jackie Chatterjee NP COUMADIN 5 MG ORAL TABLET completed one tablet daily, starting one week prior to procedure. - 10/25 Quyen Hunter hydrochlorothiazide 25 mg tablet completed 1 tablet once a day - 06/28 Ines Valdez NP QSYMIA 3.75-23 MG ORAL CAPSULE EXTENDED RELEASE 24 HOUR completed take one tablet daily 02/11 - 04/30 Alicja Townsend QSYMIA 7.5-46 MG ORAL CAPSULE EXTENDED RELEASE 24 HOUR completed take one tablet daily 02/11 - 04/30 Alicja Townsend LISINOPRIL 20 MG ORAL TABLET completed ONE TABLET DAILY 12/05 - 04/30 Alicja Townsend AMBIEN 10 MG ORAL TABLET completed ONE TAB. AT BEDTIME 10/25 - 04/30 Alicjami Townsend PRILOSEC 40 MG ORAL CAPSULE DELAYED RELEASE completed ONE TAB. DAILY 10/25 - 04/30 Alicjami Townsend COZAAR 50 MG ORAL TABLET completed ONE TAB. DAILY 03/03 - 04/14 Octavio Burks RN LUNESTA 2 MG ORAL TABLET completed po at bedtime prn 03/02 - 04/14 Octavio Burks RN TYLENOL WITH CODEINE #3 TABLET completed one tab every 4 hrs as needed for pain - 04/30 Alicja Townsend CIPROFLOXACIN HCL 500 MG ORAL TABLET completed one twice a day for 5 days start today for UTI prior to battery 05/17 - 04/30 Joyce Lucio MICARDIS 40 MG ORAL TABLET completed one tab daily 12/24 - 03/03 Rogers Hopkins ACCURETIC 20-12.5 MG ORAL TABLET completed twoTABs. DAILY 04/11 - 05/11 Diego Segura MD AMBIEN 10 MG ORAL TABLET completed ONE TAB. 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 smoking history, tot al pack/day 0.5 Ines Villalobosr [employer]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 cigarette use yes Ines Dozier er [employer]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 smoking status Former smoker Ines Price dler [employer]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 Exercise counseling Yes Ines Villalobosr 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 drug use no Edis Griffith alcohol use no Edis Griffith passive cigarette sm melody exposure yes Edis Griffith smoking, year quit 2016 Edis segura number of years as a smoker 24 a Edis Griffith smoking, date started 7 Edis Griffith smoking history, tot al pack/year 2015 Edis Griffith smoking history, tot al pack/day 0.5 Edis Griffith cigarette use yes Edis Griffith smoking status Former smoker Edis evangelista drug use no Carol Byron alcohol use no Carol Byron passive cigarette sm melody exposure yes Carolgerardo Matthews smoking, year quit 2016 Carolgerardo doshims number of years as a smoker 24 a Carol Matthews smoking, date started 7 Craolgerardo rubio smoking history, tot al pack/year 2015 Carol Byron smoking history, tot al pack/day 0.5 Carolgerardo Matthews cigarette use yes Carol Byron smoking status Former smoker Carolgerardo Nayak s drug use no Albert Tawanna alcohol use no Albert Tawanna passive cigarette sm melody exposure yes Albert Tawanna smoking, year quit 2016 Albert palma number of years as a smoker 24 a Albert Tawanna smoking, date started 7 Albert Tawanna smoking history, tot al pack/year 2015 Albert Stacy smoking history, tot al pack/day 0.5 Albert Stacy cigarette use yes Albert Mead i smoking status Former smoker Albert ortega social history reviewed E&M revi ewed - no changes required Albert Stacy exercise type work out gym Carol Byron Exercise counseling yes Carolgerardo brock physical exercise, f requency, days per week 2 /wk Carolgerardo Matthews caffeine use, averag e drinks per day 0 /d Carolgerardo Matthews passive cigarette sm melody exposure yes Carol Matthesw smoking, year quit 2016 Carol Kelton iaak number of years as a smoker 24 a Carol Matthews smoking, date started 7 Carolgerardo rubio smoking history, tot al pack/year 2015 Carolgerardo Matthews smoking history, tot al pack/day 0.5 Carol Matthews cigarette use yes Carol Matthews smoking status Former smoker Carol ryan social history E&M Marital Statu s: Wally ortiz: 2 children L taiwo with family/friends E thnicity: Smoking History: Ashutosh brenda is a former smoker. Timi Ross social history reviewed E&M revi ewed - no changes required Timi Ross exercise type work out gym Carol Matthews Exercise counseling yes Carol brock physical exercise, f requency, days per week 2 /wk Carol Matthews caffeine use, averag e drinks per day 0 /d Carolgerardo Matthews passive cigarette sm melody exposure yes Carol Matthews smoking, year quit 2016 Carol Kelton quiros number of years as a smoker 24 a Carol Matthews smoking, date started 7 Carolgerardo rubio smoking history, tot al pack/year 2015 Carol Matthews smoking history, tot al pack/day 0.5 Carol Matthews cigarette use yes Carol Matthews smoking status Former smoker Carol ryan social history E&M Marital Statu s: Wally ortiz: 2 children L taiwo with family/friends E thnicity: S moking History: Ashutosh gutierrez is a former smoker. 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 Finn Johnson MD social history reviewed E&M revi ewed - no changes required Finn Johnson MD exercise type work out gym Vanessa Ryan physical exercise, f requency, days per week 2 /wk Vanessa Ryan caffeine use, averag e drinks per day 0 /d Vanessa Ryan passive cigarette sm melody exposure yes Vanessa Palermo smoking, year quit 2017 Vanessa Palermo number of years as a smoker 24 a Vanessa Ryan smoking, date started 1992 Papo ellington Ryan smoking history, tot al pack/year 24 Vanessa Ryan smoking history, tot al pack/day 1/4 Vanessa Ryan cigarette use yes Vanessa Ryan smoking status Former smoker Vanessa Ot is social history reviewed E&M revi ewed - no changes required [facility] social history E&M Marital Statu s: Wally ortiz: 2 children L taiwo with family/friends E thnicity: Smoking History: P atient is a former smoker. [facility] exercise type work out gym Sintia Lawrence physical exercise, f requency, days per week 2 /wk Sintia Eden caffeine use, averag e drinks per day 0 /d Sintia Eden passive cigarette sm melody exposure yes Sintia Meek smoking, year quit 2016 Sintia santana number of years as a smoker 24 a Sintia Meek smoking, date started 1992 Jesikasaturnino carrillo Meek smoking history, tot al pack/year 24 Sintia Meek smoking history, tot al pack/day 1/ Sintia Eden cigarette use yes Sintia gann smoking status Former smoker Sintia Edis aggarwal social history E&M Marital Statu s: Wally ortiz: 2 children L taiwo with family/friends E thnicity: Smoking History: P atjennifer is a former smoker. Semaj Solomon social history reviewed E&M revi ewed - no changes required Semaj Solomon smoking status Former smoker Emmy Pam exercise type work out gym [facility] physical exercise, f requency, days per week 2 /wk [facility] caffeine use, averag e drinks per day 0 /d [facility] passive cigarette sm melody exposure yes [facility] smoking, year quit 2016 Jae Angela number of years as a smoker 24 a Jae Angela smoking, date started 1992 Marleni mario Angela smoking history, tot al pack/year 24 Jae Angela smoking history, tot al pack/day 1/4 Jae Angela cigarette use yes Jae alcantar smoking status Former smoker Jae Vazquez [facility] social history reviewed E&M revi ewed - no changes required Jae [facility] social history reviewed E&M revi ewed - no changes required Venkatesh Carbone MD exercise type work out gym [facility] physical exercise, f requency, days per week 2 /wk [facility] caffeine use, averag e drinks per day 0 /d [facility] passive cigarette sm melody exposure yes [facility] smoking, year quit 2016 [facility] number of years as a smoker 24 a [facility] smoking, date started 1992 [facility] smoking history, tot al pack/year 24 [facility] smoking history, tot al pack/day /4 [facility] cigarette use yes [facility] smoking status Former smoker [facility] number of grandchildren Venkatesh Pruitt social history reviewed E&M revi ewed - no changes required Conrad Pruitt exercise type work out gym Sintia gann physical exercise, f requency, days per week 2 /wk Sintia Eden caffeine use, averag e drinks per day 0 /d Sintia Eden passive cigarette sm melody exposure yes Sintia Eden smoking, year quit 2016 Sintia santana number of years as a smoker 24 a Sintia Eden smoking, date started 1992 David carrillo Eden smoking history, tot al pack/year 24 Sintia Eden smoking history, tot al pack/day 1/4 Sintia Eden cigarette use yes Sintia gann smoking status Former smoker Sintia aggarwal social history E&M Marital Statu s: C hildren: 2 children L taiwo with family/friends E thnicity: Smoking History: Ashutosh gutierrez is a former smoker. Finn Johnson MD social history reviewed E&M revi ewed - no changes required Finn Johnson MD exercise type work out gym [facility] physical exercise, f requency, days per week 2 /wk Leyla Frances alcohol use, average drinks per day none Leyla Frances alcohol use no [facility] caffeine use, averag e drinks per day 0 /d Leyla Frances drug use no Leyla Frances passive cigarette sm melody exposure yes [facility] smoking, year quit 2016 Finn weldon MD number of years as a smoker 24 a Leyla [place] smoking, date started 1992 Leyla Frances cigarette use yes Leyla Frances smoking status Former smoker [facility] number of grandchildren Juan Manuel Toledo MD social history reviewed E&M revi ewed - no changes required Juan Manuel Toledo MD exercise type work out gym Alicja lucero physical exercise, f requency, days per week 2 /wk Alicja Cary alcohol use, average drinks per day none Alicja Cary alcohol use no Alicja Ericanemesfin sims caffeine use, averag e drinks per day 0 /d Alicja Cary drug use no Alicja Eliza jemer passive cigarette sm melody exposure yes Alicja Townsend smoking, year quit 2014 Alicja ty number of years as a smoker 24 a Alicja Townsend smoking, date started 1992 Alicja Townsend smoking history, tot al pack/year 24 Alicja Townsend smoking history, tot al pack/day / Alicja Townsend cigarette use yes Alicja lucero smoking status Former smoker Alicja best number of grandchildren Lynette Salazar MD social history reviewed E&M revi ewed - no changes required Lynette Salazar MD social history E&M Marital Statu s: C hildren: 2 children L taiwo with family/friends E thnicity: Smoking History: P atient currently smokes every day. P atient has been counseled to quit. Lynette Salazar MD exercise type work out gym [facility] physical exercise, f requency, days per week 2 /wk [facility] alcohol use, average drinks per day none [facility] alcohol use no [place] caffeine use, averag e drinks per day 0 /d [place] drug use no [facility] smoking/tobacco cess ation, patient education and counseling yes [facility] passive cigarette sm melody exposure yes [facility] smoking, year quit 2014 Una bonilla number of years as a smoker 24 a [facility] smoking, date started 1992 Sera anderson Diaz smoking history, tot al pack/year 24 [facility] smoking history, tot al pack/day 10/16 [facility] cigarette use yes Una Diaz smoking status Current every day smoker Alma Diaz smoking history, tot al pack/year 24 Laurie Harrison RN number of years as a smoker 24 a Finn Johnson MD social history reviewed E&M revi ewed - no changes required Finn Johnson MD social history E&M Marital Statu s: Wally ortiz: 2 children L taiwo with family/friends E thnicity: Smoking History: P atient currently smokes every day. P atient has been counseled to quit. Finn Johnson MD exercise type work out gym Jae alcantar physical exercise, f requency, days per week 2 /wk Caroline Dominguez alcohol use, average drinks per day none Caroline Dominguez alcohol use no Caroline tristan caffeine use, averag e drinks per day 0 /d Finn Johnson MD drug use no Caroline tristan smoking/tobacco cess ation, patient education and counseling yes Caroline Dominguez passive cigarette sm melody exposure yes Caroline Dominguez smoking, year quit 2014 Caroline Dominguez smoking, date started 1992 LaurieLee yu Dominguez smoking history, tot al pack/day 1/4 Caroline Dominguez cigarette use yes Caroline leija smoking status Current every day smoker Dariusz Dominguez smoking/tobacco cess ation, patient education and counseling yes Finn Johnson MD social history E&M Marital Statu s: Wally ortiz: 2 children L taiwo with family/friends E thnicity: Smoking History: P atient currently smokes every day. P atient has been counseled to quit. Finn Johnson MD social history reviewed E&M revi ewed - no changes required Finn Johnson MD exercise type wprk out gym Caroline leija physical exercise, f requency, days per week 2 /wk Caroline Dominguez alcohol use, average drinks per day none Caroline Dominguez alcohol use no Caroline tristan caffeine use, averag e drinks per day no Caroline Dominguez drug use no Caroline tristan passive cigarette sm melody exposure yes Caroline Dominguez smoking, year quit 2014 Caroline Dominguez number of years as a smoker 10 years or m ore Caroline Dominguez smoking, date started 1992 Kandy Dominguez smoking history, tot al pack/year 21 Caroline Dominguez smoking history, tot al pack/day 1/ Caroline Dominguez cigarette use yes Caroline leija smoking status Current every day smoker G kirit Johnson MD social history E&M Marital Statu s: Wally ortiz: 2 children L taiwo with family/friends E thnicity: Ashutosh gutierrez currently smokes every day. Smoking History: Ashutosh gutierrez is a former smoker. Juan Manuel Toledo MD social history reviewed E&M revi ewed - no changes required Juan Manuel Toledo MD smoking, year quit 2014 Gerri Marquez bela exercise type wprk out gym Gerri Sutton physical exercise, f requency, days per week 2 /wk Gerri Sutton alcohol use, average drinks per day none Gerri Sutton alcohol use no Gerri Sutton caffeine use, averag e drinks per day no Gerri Sutton drug use no Gerri Sutton passive cigarette sm melody exposure yes Gerri Sutton number of years as a smoker 10 years or m ore Gerri Sutton smoking, date started 1992 Stevenson Sutton smoking history, tot al pack/year 21 Gerri Sutton smoking history, tot al pack/day 1/ Gerri Sutton cigarette use yes Gerri Sutton smoking status Former smoker Gerri Sutton social history reviewed E&M benny gaines - no changes required Venkatesh Carbone MD social history E&M Marital Statu s: Wally ortiz: 2 children L taiwo with family/friends E thnicity: P atjennifer currently smokes every day. Smoking History: P atjennifer currently smokes every day. P atjennifer has been counseled to quit. Venkatesh Carbone MD exercise type wprk out gym Gerri Patiño physical exercise, f requency, days per week 2 /wk Gerri Patiño alcohol use, average drinks per day none Gerri Patiño caffeine use, averag e drinks per day no Gerri Patiño drug use no [facility] passive cigarette sm melody exposure yes Gerri [facility] smoking/tobacco cess ation, patient education and counseling yes Gerri Patiño number of years as a smoker 10 years or m ore Gerri [facility] smoking, date started 1992 Steevnson carrillo Patiño smoking history, tot al pack/year 21 Gerri [facility] smoking history, tot al pack/day 1/ Gerri [facility] cigarette use yes [facility] smoking status current every day smoker S sachi Carbone MD exercise type wprk out gym Ernestine [employer] physical exercise, f requency, days per week 2 /wk Ernestine Blunt alcohol use, average drinks per day none Ernestine Blunt caffeine use, averag e drinks per day no Ernestine Blunt drug use no Ernestine Blunt passive cigarette sm melody exposure yes Ernestine Blunt smoking/tobacco cess ation, patient education and counseling yes Ernestine Blunt number of years as a smoker 10 years or m ore Ernestine Blunt smoking, date started 1992 Heathe r Blunt smoking history, tot al pack/year 21 Ernestine Blunt smoking history, tot al pack/day 1/ Ernestine Blunt cigarette use yes Ernestine Blunt smoking status Current every day smoker H eather Blunt social history reviewed E&M revi ewed - no changes required Ernestine Blunt exercise type wprk out gym Finn Johnson MD physical exercise, f requency, days per week 2 /wk Finn Johnson MD alcohol use, average drinks per day none Finn Johnson MD caffeine use, averag e drinks per day no Finn Johnson MD drug use no Finn Johnson MD passive cigarette sm melody exposure yes Finn Johnson MD smoking/tobacco cess ation, patient education and counseling yes Finn Johnson MD number of years as a smoker 10 years or m ore Finn Johnson MD smoking, date started 1992 Finn Johnson MD smoking history, tot al pack/year 21 Finn Johnsno MD smoking history, tot al pack/day 1 Finn Johnson MD cigarette use yes Finn Johnson MD smoking status Current every day smoker G kirit Jhonson MD social history reviewed E&M benny ewed - no changes required Finn Johnson MD smoking/tobacco cess ation, patient education and counseling yes Finn Johnson MD social history reviewed E&M reviewed Finn Johnson MD smoking history, tot al pack/year 21 Eunice Andres smoking/tobacco cess ation, patient education and counseling yes Finn Johnson MD social history reviewed E&M reviewed Finn Johnson MD smoking history, tot al pack/year 20 Finn Johnson MD physical exercise, f requency, days per week 2 /wk Diego Segura MD drug use no Diego Ambriz social history reviewed E&M reviewed Diego Segura MD exercise type wprk out gym Jayden anderson smoking history, tot al pack/year 20 Jayden Crisostomo smoking history, tot al pack/year 20 Octavio Burks RN drug use no Octavio Burks RN passive cigarette sm melody exposure yes Octavio Burks RN smoking history, tot al pack/day 1/ Octavio Burks RN smoking history, tot al pack/year 20 Octavio Burks RN cigarette use yes Octavio Burks RN smoking, date started 1992 Octavio leal RN smoking/tobacco cess ation, patient education and counseling yes Octavio Burks RN social history reviewed E&M reviewed Octavio Burks RN smoking status smoker - current status unknown Octavio Burks RN social history reviewed E&M reviewed Octavio Burks RN social history reviewed E&M reviewed Octavio Burks RN social history reviewed E&M reviewed Octavio Burks RN social history reviewed E&M reviewed Ernestine Hernandez smoking/tobacco cess ation, patient education and counseling yes Octavio Burks RN smoking status Smoker Octavio Burks RN social history reviewed E&M reviewed Octavio Burks RN number of children 2 children Octavio ryan RN social history E&M Marital Statu s: C hildren: 2 children L taiwo with family/friends E thnicity: Octavio Burks RN social history reviewed E&M reviewed Octavio Burks RN physical exercise, f requency, days per week no [employer] caffeine use, averag e drinks per day no [employer] alcohol use, average drinks per day none [employer] number of years as a smoker 10 years or m ore [employer] smoking status Quit [employer] physical exercise, f requency, days per week no [employer] caffeine use, averag e drinks per day yes [employer] alcohol use, average drinks per day 1-3 drinks per day [employer] number of years as a smoker less than 10 years [employer] smoking status Quit [facility] social history E&M Marital Statu s: L taiwo with family/friends E thnicity: Finn Johnson MD social history E&M Marital Statu s: L taiwo with family/friends E thnicity: Finn Johnson MD smoking status Quit Finn Ambriz physical exercise, f requency, days per week no [facility] caffeine use, averag e drinks per day no [facility] alcohol use, average drinks per day none [facility] number of years as a smoker less than 10 years [facility] smoking status Smoker [facility] MENTAL STATUS Date Observation Value Provider assessment of judgme nt and insight E&M Alert and oriented to time, place and person. Mood and affect are normal. Finn Johnson MD assessment of judgme nt and insight E&M Alert and oriented to time, place and person. Mood and affect are normal. Finn Johnson MD assessment of judgme nt and insight E&M Alert and oriented to time, place and person. Mood and affect are normal. Diego Segura MD assessment of judgme nt and insight E&M Alert and oriented to time, place and person. Mood and affect are normal. Octavio Burks RN assessment of judgme nt and insight E&M Alert and oriented to time, place and person. Mood and affect are normal. Octavio Burks RN assessment of judgme nt and insight E&M Alert and oriented to time, place and person. Mood and affect are normal. Octavio Burks RN assessment of judgme nt and insight E&M Alert and oriented to time, place and person. Mood and affect are normal. Octavio Burks RN assessment of judgme nt and insight E&M Alert and oriented to time, place and person. Mood and affect are normal. Ernestine Blunt assessment of judgme nt and insight E&M Alert and oriented to time, place and person. Mood and affect are normal. Octavio Burks RN assessment of judgme nt and insight E&M Alert and oriented to time, place and person. Mood and affect are normal. Octavio Burks RN assessment of judgme nt and insight E&M Alert and oriented to time, place and person. Mood and affect are normal. Finn Johnson MD assessment of judgme nt and insight E&M Alert and oriented to time, place and person. Mood and affect are normal. Finn Johnson MD assessment of judgme nt and insight E&M Alert and oriented to time, place and person. Mood and affect are normal. Finn Johnson MD assessment of judgme nt and insight E&M Alert and oriented to time, place and person. Mood and affect are normal. Finn Johnson MD FAMILY HISTORY Family Member Condition Mother Family History of Hy pertension: Father Family History of Hy pertension: INSURANCE PROVIDERS Payer name Policy type / Coverage type [place] [employer] party ID [facility] [id number] ADVANCE DIRECTIVES Name Date DISCUSSED - NO DECISION MADE TREATMENT PLAN Date Name Performer [id number],S,n o angina H er updated medication list for this problem includes: Lopressor 100 Mg Tablet (Metoprolol tartrate) ..... Take 1 tablet by mouth once a day take 1 tablet by mouth twice a day Diltiazem Hcl 60 Mg Tablet (Diltiazem hcl) ..... Take 1 tablet by mouth twice a day Albert Stacy [id number],S,asx Albert palma [id number],S, H er updated medication list for this problem includes: Lopressor 100 Mg Tablet (Metoprolol tartrate) ..... Take 1 tablet by mouth once a day take 1 tablet by mouth twice a day Diltiazem Hcl 60 Mg Tablet (Diltiazem hcl) ..... Take 1 tablet by mouth twice a day Albert Stacy [id number],C,T he patient is using CPAP on a regular basis. The patient has been benefiting from therapy and should continue use. Albert Martinri [id number],S,i ncrease lopressor to 100mg H er updated medication list for this problem includes: Lopressor 100 Mg Tablet (Metoprolol tartrate) ..... Take 1 tablet by mouth once a day take 1 tablet by mouth twice a day Diltiazem Hcl 60 Mg Tablet (Diltiazem hcl) ..... Take 1 tablet by mouth twice a day Hydrochlorothiazide 25 Mg Tablet (Hydrochlorothiazide) ..... Take 1 tablet by mouth once a day take 1 tablet by mouth every day Losartan 100 Mg Tablet (Losartan) ..... Take 1 tablet by mouth every evening Albert Martinri [id number],S,P t continues heaviness, throbbing, and swelling in left leg. No improvement with diuretics and support stockings. Duplex shows insuficciency of left GSV. Will schedule venography/IVUS/possible iliac vein stent to be followed by venaseal. Will inccrease lopressor to 100mg for better BP control H er updated medication list for this problem includes: Lopressor 100 Mg Tablet (Metoprolol tartrate) ..... Take 1 tablet by mouth once a day take 1 tablet by mouth twice a day Diltiazem Hcl 60 Mg Tablet (Diltiazem hcl) ..... Take 1 tablet by mouth twice a day Hydrochlorothiazide 25 Mg Tablet (Hydrochlorothiazide) ..... Take 1 tablet by mouth once a day take 1 tablet by mouth every day Losartan 100 Mg Tablet (Losartan) ..... Take 1 tablet by mouth every evening Albert Stacy [id number],W,P atient has left LE veous insufficiency, she is wearing stocking. reflux doppler ordered to be done and read by Dr. Johnson. O rders: P tracy 5-10 (CPT-22784) V enous Doppler Bilateral LE - Reflux (CPT-77128) Venkatesh Carbone MD [id number],S, Timi Waltonsheldon saunders [id number],C,see #1 Timi chance [id number],C,H aving episodes of random CP and SOB, unclear if it is related to her HTN, or spasms, will start her on Diltiazem 60 mg BID for better BP control and see if her sxs improve. Timi Ross [id number],C,H aving episodes of random CP and SOB, unclear if it is related to her HTN, or spasms, will start her on Diltiazem 60 mg BID for better BP control and see if her sxs improve. & #13;BP today: 146/94 P rior BP: 139/85 (04/25/2023) Labs Reviewed: C reat: 1.10 (07/06/2020) Timi Robleschip [id number],C, E P STUDY 08/2019:: O perative Findings: P resenting rhythm sinus with concentric CS activation. N ormal antegrade AV francine conduction with antegrade AV Wenckebach documented at 420 milliseconds paced t rain when paced from left atrium. N o pre-excitation of left ventricle seen when paced from left atrium. 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 Timi Robleschip [id number],C,h aving week long complaints of intermittent chest heaviness with radiation to neck, back and down left arm. Associated shortness of breath and diaphoresis. Symptoms have progressively gotten worse. Reports fever 101.2 last evening, brought down with tylenol. Appears flushed in the office today. She is being sent to the ER for serial labs/blood cultures/XRay . Called and spoke with ER . Jackie Chatterjee C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 [id number],S, L ast remote PPM check 04/18/22 battery 5 months device check 01/2022 1. yr 7 months will recheck device in 4 months Venkatesh Carbone MD [id number],S,h x quit, 2017 Venkatesh Carbone MD [id number],C,s lee study 2017. would recommend rechecking home sleep study given reported symptoms. SOB, daytime sleepiness, restless sleep, snoring. Venkatesh Carbone MD [id number],C,s /p ppm. Battery Longevity: 5 months remaining % Pacing: RA - 26.0% RV - 1.0% T echnician Summary: 5 months on battery. Appropriate device f unction. Lead trends appear stable. device check 01/2022 battery 1.7yrs, remote check 04/2022 5 months. will recheck device check in 4 months. T he following medications were removed from the medication list: Metoprolol Succinate 200 Mg Tablet Extended Release 24 Hr (Metoprolol succinate) ..... 1 tablet once a day Her updated medication list for this problem includes: Lopressor 50 Mg Tablet (Metoprolol tartrate) ..... Take 1 tablet by mouth twice a day Venkatesh Carbone MD [id number],C, E P STUDY 08/2019:: O perative Findings: P resenting rhythm sinus with concentric CS activation. N ormal antegrade AV francine conduction with antegrade AV Wenckebach documented at 420 milliseconds paced t rain when paced from left atrium. N o pre-excitation of left ventricle seen when paced from left atrium. 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 T he following medications were removed from the medication list: Metoprolol Succinate 200 Mg Tablet Extended Release 24 Hr (Metoprolol succinate) ..... 1 tablet once a day Her updated medication list for this problem includes: Lopressor 50 Mg Tablet (Metoprolol tartrate) ..... Take 1 tablet by mouth twice a day Venkatesh Carbone MD [id number],W,p t has not toprol xl 200mg daily d/t cost with recent insurance change. reviewed dietary restrictions, including sodium restrictions. will change toprol xl to lopressor 50mg BID and adding losartan 100mg BP today: 186/114 P rior BP: 150/108 (01/16/2022) Labs Reviewed: C reat: 1.10 (07/06/2020) The following medications were removed from the medication list: Metoprolol Succinate 200 Mg Tablet Extended Release 24 Hr (Metoprolol succinate) ..... 1 tablet once a day Hydrochlorothiazide 25 Mg Tablet (Hydrochlorothiazide) ..... 1 tablet once a day Her updated medication list for this problem includes: Lopressor 50 Mg Tablet (Metoprolol tartrate) ..... Take 1 tablet by mouth twice a day Losartan 100 Mg Tablet (Losartan) ..... Take 1 tablet by mouth every evening Hydrochlorothiazide 25 Mg Tablet (Hydrochlorothiazide) ..... Take 1 tablet by mouth every day continue RPM. Discussion of benefits for remote patient monitoring took place. Patient gives consent for remote monitoring of physiologic parameters including, but not limited to, weight, blood pressure, pulse oximetry, respiratory flow rate. Venkatesh Carbone MD [id number],C, L ast remote PPM check 04/18/22 battery 5 months device check 01/2022 1. yr 7 months will recheck device in 4 months Ines Valdez NP [id number],C,s /p ppm. Battery Longevity: 5 months remaining % Pacing: RA - 26.0% RV - 1.0% T echnician Summary: 5 months on battery. Appropriate device f unction. Lead trends appear stable. device check 01/2022 battery 1.7yrs, remote check 04/2022 5 months. will recheck device check in 4 months. Ines Valdez NP [id number],C,s benjamin study 2017. would recommend rechecking home sleep study given reported symptoms. SOB, daytime sleepiness, restless sleep, snoring. Ines Priceshantelle C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 [id number],CSaqib P STUDY 08/2019:: O perative Findings: P resenting rhythm sinus with concentric CS activation. N ormal antegrade AV francine conduction with antegrade AV Wenckebach documented at 420 milliseconds paced t rain when paced from left atrium. N o pre-excitation of left ventricle seen when paced from left atrium. 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 T he following medications were removed from the medication list: Metoprolol Succinate 200 Mg Tablet Extended Release 24 Hr (Metoprolol succinate) ..... 1 tablet once a day Her updated medication list for this problem includes: Lopressor 50 Mg Tablet (Metoprolol tartrate) ..... Take 1 tablet by mouth twice a day Ines Priceshantelle C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 [id number],C,p t has not toprol xl 200mg daily d/t cost with recent insurance change. reviewed dietary restrictions, including sodium restrictions. will change toprol xl to lopressor 50mg BID and adding losartan 100mg BP today: 186/114 P rior BP: 150/108 (01/16/2022) Labs Reviewed: C reat: 1.10 (07/06/2020) The following medications were removed from the medication list: Metoprolol Succinate 200 Mg Tablet Extended Release 24 Hr (Metoprolol succinate) ..... 1 tablet once a day Hydrochlorothiazide 25 Mg Tablet (Hydrochlorothiazide) ..... 1 tablet once a day Her updated medication list for this problem includes: Lopressor 50 Mg Tablet (Metoprolol tartrate) ..... Take 1 tablet by mouth twice a day Losartan 100 Mg Tablet (Losartan) ..... Take 1 tablet by mouth every evening Hydrochlorothiazide 25 Mg Tablet (Hydrochlorothiazide) ..... Take 1 tablet by mouth every day continue RPM. Discussion of benefits for remote patient monitoring took place. Patient gives consent for remote monitoring of physiologic parameters including, but not limited to, weight, blood pressure, pulse oximetry, respiratory flow rate. Ines Valdez NP [id number],C,h x quit, 2016 Ines Courtney GARG [id number],C, C omplaining of palpitations and SOB. BP markedly elevated. Will increase Metoprolol to 200 mg daily. Will obtain echo and stress test H er updated medication list for this problem includes: Metoprolol Succinate 200 Mg Tablet Extended Release 24 Hr (Metoprolol succinate) ..... 1 tablet once a day Shruthi Pinasaud [id number],C, C omplaining of palpitations and SOB. BP markedly elevated. Will increase Metoprolol to 200 mg daily. Will obtain echo and stress test Shruthi Mckeonrafael [id number],C, N o chest pain, complaining of palpitations H er updated medication list for this problem includes: Metoprolol Succinate 200 Mg Tablet Extended Release 24 Hr (Metoprolol succinate) ..... 1 tablet once a day Shruthi Pinasaud [id number],C, W ill increase Metoprolol to 200 mg daily. Obtain echo and stress test B P today: 150/108 P rior BP: 154/101 (07/05/2020) Labs Reviewed: C reat: 1.10 (07/06/2020) Her updated medication list for this problem includes: Hydrochlorothiazide 25 Mg Tablet (Hydrochlorothiazide) ..... 1 tablet once a day Metoprolol Succinate 100 Mg Tablet Extended Release 24 Hr (Metoprolol succinate) ..... 1 tablet once a day Fnin Johnson MD Electrophysiology: E CHO: EF 65%, mild-mod MR will recheck ECHO Ines Valdez NP Electrophysiology: c ath 03/10/24: increased LVEDP 22, normal coronaries, with some bridging of distal LAD, EF 70%. E CHO 07/2023 EF 65%, mild-mod MR. klarissa evice check today: AV 31%, RV 0%, no new episodes. normal functioon. CP and SOB at minimal exertion will add ranexa 500 BID. will restart losartan 25mg daily. will recheck ECHO Ines Valdez NP Electrophysiology:no recurrence. Ines Valdez NP Electrophysiology:de vice check today no new events. EP STUDY 08/2019:: O perative Findings: P resenting rhythm sinus with concentric CS activation. N ormal antegrade AV francine conduction with antegrade AV Wenckebach documented at 420 milliseconds paced t rain when paced from left atrium. N o pre-excitation of left ventricle seen when paced from left atrium. 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 Inse Valdez NP Electrophysiology:CH OL: 235 (08/19/2023) LDL: 162 (08/19/2023) HDL: 49 (08/19/2023) T (08/19/2023) Her updated medication list for this problem includes: Rosuvastatin 20 Mg Tablet (Rosuvastatin) ..... Take 1 tablet by mouth once a day Ines Valdez NP Cardiology: P t underwent successful stenting of bilateral iliac veins last fall. She reports improvement of her sx, but still some heaviness of left left. Edis Griffith Cardiology: T he patient is using CPAP on a regular basis. The patient has been benefiting from therapy and should continue use. Edis Griffith Cardiology:LDL 66 H er updated medication list for this problem includes: Rosuvastatin 20 Mg Tablet (Rosuvastatin) ..... Take 1 tablet by mouth once a day Edis Griffith Cardiology: H er updated medication list for this problem includes: Lopressor 100 Mg Tablet (Metoprolol tartrate) ..... Take 1 tablet by mouth once a day take 1 tablet by mouth twice a day Hydrochlorothiazide 25 Mg Tablet (Hydrochlorothiazide) ..... Take 1 tablet by mouth once a day take 1 tablet by mouth every day Diltiazem Hcl 60 Mg Tablet (Diltiazem hcl) ..... Take 1 tablet by mouth twice a day Losartan 100 Mg Tablet (Losartan) ..... Take 1 tablet by mouth every evening BP today: 146/80 P rior BP: 123/87 (01/16/2024) Labs Reviewed: C reat: 1.00 (08/19/2023) C hol: 235 (08/19/2023) HDL: 49 (08/19/2023) LDL: 162 (08/19/2023) T (08/19/2023) [facility] Cardiology:cath sche duled 03/10 C P and SOB at minimal exertion [facility] Cardiology:cath scheduled 03/10 T radha [place] Cardiology:Complains of worsening SOB upon exertion. Notices this during daily activities and feels much more fatigue W ill check CXR and routine stress test Ines Valdez NP Cardiology:Pt presen ts to office today with complaints of progressively worsening LALA, diaphoresis, increased fatigue, decreased activity tolerance and intermittent CP. CP describes as exertional, substernal, described as a pressure that increases with inspiration. Pain radiates to her neck that improves with rest and lasts about 5mins, associated with numbness and tingling in her hands. Routine stress in 2020 showed PVCs. I n view of worsening CP, will check regadenoson stress test. She has a permanent pacemaker and routine stress test may be nondiagnostic, so she will need regadenoson Ines Valdez NP Cardiology: H er updated medication list for this problem includes: Lopressor 100 Mg Tablet (Metoprolol tartrate) ..... Take 1 tablet by mouth once a day take 1 tablet by mouth twice a day Clopidogrel 75 Mg Tablet (Clopidogrel) ..... Take 1 tablet by mouth every day Diltiazem Hcl 60 Mg Tablet (Diltiazem hcl) ..... Take 1 tablet by mouth twice a day Albert Stacy Cardiology: E P STUDY 08/2019:: O perative Findings: P resenting rhythm sinus with concentric CS activation. N ormal antegrade AV francine conduction with antegrade AV Wenckebach documented at 420 milliseconds paced t rain when paced from left atrium. N o pre-excitation of left ventricle seen when paced from left atrium. 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 Albert Stacy Cardiology: Will sta rt 20mg crestor daily due to elevated LDL H er updated medication list for this problem includes: Rosuvastatin 20 Mg Tablet (Rosuvastatin) ..... Take 1 tablet by mouth once a day Albert Tawanna Cardiology: BP is hi gh today but reports at home it is well controlled, she will continue to monitor. B P today: 137/104 P rior BP: 158/109 (08/05/2023) Labs Reviewed: C reat: 1.00 (08/19/2023) C hol: 235 (08/19/2023) HDL: 49 (08/19/2023) LDL: 162 (08/19/2023) T (08/19/2023) Her updated medication list for this problem includes: Lopressor 100 Mg Tablet (Metoprolol tartrate) ..... Take 1 tablet by mouth once a day take 1 tablet by mouth twice a day Hydrochlorothiazide 25 Mg Tablet (Hydrochlorothiazide) ..... Take 1 tablet by mouth once a day take 1 tablet by mouth every day Diltiazem Hcl 60 Mg Tablet (Diltiazem hcl) ..... Take 1 tablet by mouth twice a day Losartan 100 Mg Tablet (Losartan) ..... Take 1 tablet by mouth every evening Albert Stacy Cardiology:Pt underw ent successful stenting of bilateral iliac veins last fall. She reports improvement of her sx, but still some heaviness of left left. Will schedule venaseal of left GSV. Will start 20mg crestor daily due to elevated LDL. BP is high today but reports at home it is well controlled, she will continue to monitor. [facility] Cardiology:no angina H er updated medication list for this problem includes: Lopressor 100 Mg Tablet (Metoprolol tartrate) ..... Take 1 tablet by mouth once a day take 1 tablet by mouth twice a day Diltiazem Hcl 60 Mg Tablet (Diltiazem hcl) ..... Take 1 tablet by mouth twice a day [facility] Cardiology:asx [facility] Cardiology: H er updated medication list for this problem includes: Lopressor 100 Mg Tablet (Metoprolol tartrate) ..... Take 1 tablet by mouth once a day take 1 tablet by mouth twice a day Diltiazem Hcl 60 Mg Tablet (Diltiazem hcl) ..... Take 1 tablet by mouth twice a day [facility] Cardiology:The patie nt is using CPAP on a regular basis. The patient has been benefiting from therapy and should continue use. [facility] Cardiology:increase lopressor to 100mg H er updated medication list for this problem includes: Lopressor 100 Mg Tablet (Metoprolol tartrate) ..... Take 1 tablet by mouth once a day take 1 tablet by mouth twice a day Diltiazem Hcl 60 Mg Tablet (Diltiazem hcl) ..... Take 1 tablet by mouth twice a day Hydrochlorothiazide 25 Mg Tablet (Hydrochlorothiazide) ..... Take 1 tablet by mouth once a day take 1 tablet by mouth every day Losartan 100 Mg Tablet (Losartan) ..... Take 1 tablet by mouth every evening [facility] Cardiology:Pt contin ues heaviness, throbbing, and swelling in left leg. No improvement with diuretics and support stockings. Duplex shows insuficciency of left GSV. Will schedule venography/IVUS/possible iliac vein stent to be followed by venaseal. Will inccrease lopressor to 100mg for better BP control H er updated medication list for this problem includes: Lopressor 100 Mg Tablet (Metoprolol tartrate) ..... Take 1 tablet by mouth once a day take 1 tablet by mouth twice a day Diltiazem Hcl 60 Mg Tablet (Diltiazem hcl) ..... Take 1 tablet by mouth twice a day Hydrochlorothiazide 25 Mg Tablet (Hydrochlorothiazide) ..... Take 1 tablet by mouth once a day take 1 tablet by mouth every day Losartan 100 Mg Tablet (Losartan) ..... Take 1 tablet by mouth every evening Albert Stacy Telehealth:Patient h as left LE veous insufficiency, she is wearing stocking. reflux doppler ordered to be done and read by Dr. Johnson. O rders: P tracy 5-10 (CPT-68875) V enous Doppler Bilateral LE - Reflux (CPT-38125) Venkatesh Carbone MD Electrophysiology--billed as [facility] h follow up Timi Ross Electrophysiology--b illed as high follow up :see #1 Timi Ross Electrophysiology--b illed as high follow up :Having episodes of random CP and SOB, unclear if it is related to her HTN, or spasms, will start her on Diltiazem 60 mg BID for better BP control and see if her sxs improve. Timi Ross Electrophysiology--b illed as high follow up :Having episodes of random CP and SOB, unclear if it is related to her HTN, or spasms, will start her on Diltiazem 60 mg BID for better BP control and see if her sxs improve. BP today: 146/94 P rior BP: 139/85 (04/25/2023) Labs Reviewed: C reat: 1.10 (07/06/2020) Timi Ross Electrophysiology--b illed as high follow up : E P STUDY 08/2019:: O perative Findings: P resenting rhythm sinus with concentric CS activation. N ormal antegrade AV francine conduction with antegrade AV Wenckebach documented at 420 milliseconds paced t rain when paced from left atrium. N o pre-excitation of left ventricle seen when paced from left atrium. 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 Timi Ross Cardiology:having we ek long complaints of intermittent chest heaviness with radiation to neck, back and down left arm. Associated shortness of breath and diaphoresis. Symptoms have progressively gotten worse. Reports fever 101.2 last evening, brought down with tylenol. Appears flushed in the office today. She is being sent to the ER for serial labs/blood cultures/XRay . Called and spoke with ER MD. Jackie Chatterjee NP Electrophysiology: L ast remote PPM check 04/18/22 battery 5 months device check 01/2022 1. yr 7 months will recheck device in 4 months Venkatesh Carbone MD Electrophysiology:hx quit, 2017 Venkatesh Carbone MD Electrophysiology:sl eep study 2017. would recommend rechecking home sleep study given reported symptoms. SOB, daytime sleepiness, restless sleep, snoring. Venkatesh Carbone MD Electrophysiology:s/ p ppm. Battery Longevity: 5 months remaining % Pacing: RA - 26.0% RV - 1.0% T echnician Summary: 5 months on battery. Appropriate device f unction. Lead trends appear stable. device check 01/2022 battery 1.7yrs, remote check 04/2022 5 months. will recheck device check in 4 months. T he following medications were removed from the medication list: Metoprolol Succinate 200 Mg Tablet Extended Release 24 Hr (Metoprolol succinate) ..... 1 tablet once a day Her updated medication list for this problem includes: Lopressor 50 Mg Tablet (Metoprolol tartrate) ..... Take 1 tablet by mouth twice a day Venkatesh Carbone MD Electrophysiology: E P STUDY 08/2019:: O perative Findings: P resenting rhythm sinus with concentric CS activation. N ormal antegrade AV francine conduction with antegrade AV Wenckebach documented at 420 milliseconds paced t rain when paced from left atrium. N o pre-excitation of left ventricle seen when paced from left atrium. 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 T he following medications were removed from the medication list: Metoprolol Succinate 200 Mg Tablet Extended Release 24 Hr (Metoprolol succinate) ..... 1 tablet once a day Her updated medication list for this problem includes: Lopressor 50 Mg Tablet (Metoprolol tartrate) ..... Take 1 tablet by mouth twice a day Venkatesh Carbone MD Electrophysiology:pt has not toprol xl 200mg daily d/t cost with recent insurance change. reviewed dietary restrictions, including sodium restrictions. will change toprol xl to lopressor 50mg BID and adding losartan 100mg BP today: 186/114 P rior BP: 150/108 (01/16/2022) Labs Reviewed: C reat: 1.10 (07/06/2020) The following medications were removed from the medication list: Metoprolol Succinate 200 Mg Tablet Extended Release 24 Hr (Metoprolol succinate) ..... 1 tablet once a day Hydrochlorothiazide 25 Mg Tablet (Hydrochlorothiazide) ..... 1 tablet once a day Her updated medication list for this problem includes: Lopressor 50 Mg Tablet (Metoprolol tartrate) ..... Take 1 tablet by mouth twice a day Losartan 100 Mg Tablet (Losartan) ..... Take 1 tablet by mouth every evening Hydrochlorothiazide 25 Mg Tablet (Hydrochlorothiazide) ..... Take 1 tablet by mouth every day continue RPM. Discussion of benefits for remote patient monitoring took place. Patient gives consent for remote monitoring of physiologic parameters including, but not limited to, weight, blood pressure, pulse oximetry, respiratory flow rate. Venkatesh Carbone MD Electrophysiology: L ast remote PPM check 04/18/22 battery 5 months device check 01/2022 1. yr 7 months will recheck device in 4 months Ines Valdez NP Electrophysiology:s/ p ppm. Battery Longevity: 5 months remaining % Pacing: RA - 26.0% RV - 1.0% T echnician Summary: 5 months on battery. Appropriate device f unction. Lead trends appear stable. device check 01/2022 battery 1.7yrs, remote check 04/2022 5 months. will recheck device check in 4 months. Ines Courtney GARG Electrophysiology:sl eep study 2017. would recommend rechecking home sleep study given reported symptoms. SOB, daytime sleepiness, restless sleep, snoring. Ines Priceshantelle C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 Electrophysiology: E P STUDY 08/2019:: O perative Findings: P resenting rhythm sinus with concentric CS activation. N ormal antegrade AV francine conduction with antegrade AV Wenckebach documented at 420 milliseconds paced t rain when paced from left atrium. N o pre-excitation of left ventricle seen when paced from left atrium. 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 T he following medications were removed from the medication list: Metoprolol Succinate 200 Mg Tablet Extended Release 24 Hr (Metoprolol succinate) ..... 1 tablet once a day Her updated medication list for this problem includes: Lopressor 50 Mg Tablet (Metoprolol tartrate) ..... Take 1 tablet by mouth twice a day Ines Priceshantelle GARG Electrophysiology:pt has not toprol xl 200mg daily d/t cost with recent insurance change. reviewed dietary restrictions, including sodium restrictions. will change toprol xl to lopressor 50mg BID and adding losartan 100mg BP today: 186/114 P rior BP: 150/108 (01/16/2022) Labs Reviewed: C reat: 1.10 (07/06/2020) The following medications were removed from the medication list: Metoprolol Succinate 200 Mg Tablet Extended Release 24 Hr (Metoprolol succinate) ..... 1 tablet once a day Hydrochlorothiazide 25 Mg Tablet (Hydrochlorothiazide) ..... 1 tablet once a day Her updated medication list for this problem includes: Lopressor 50 Mg Tablet (Metoprolol tartrate) ..... Take 1 tablet by mouth twice a day Losartan 100 Mg Tablet (Losartan) ..... Take 1 tablet by mouth every evening Hydrochlorothiazide 25 Mg Tablet (Hydrochlorothiazide) ..... Take 1 tablet by mouth every day continue RPM. Discussion of benefits for remote patient monitoring took place. Patient gives consent for remote monitoring of physiologic parameters including, but not limited to, weight, blood pressure, pulse oximetry, respiratory flow rate. Ines Valdez C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 Electrophysiology:hx quit, 2017 Ines Valdez C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 Cardiology: C omplaining of palpitations and SOB. BP markedly elevated. Will increase Metoprolol to 200 mg daily. Will obtain echo and stress test H er updated medication list for this problem includes: Metoprolol Succinate 200 Mg Tablet Extended Release 24 Hr (Metoprolol succinate) ..... 1 tablet once a day Shruthi Gallagher Cardiology: C omplaining of palpitations and SOB. BP markedly elevated. Will increase Metoprolol to 200 mg daily. Will obtain echo and stress test Shruthi Gallagher Cardiology: N o chest pain, complaining of palpitations H er updated medication list for this problem includes: Metoprolol Succinate 200 Mg Tablet Extended Release 24 Hr (Metoprolol succinate) ..... 1 tablet once a day Shruthi Gallagher Cardiology: W ill increase Metoprolol to 200 mg daily. Obtain echo and stress test B P today: 150/108 P rior BP: 154/101 (07/05/2020) Labs Reviewed: C reat: 1.10 (07/06/2020) Her updated medication list for this problem includes: Hydrochlorothiazide 25 Mg Tablet (Hydrochlorothiazide) ..... 1 tablet once a day Metoprolol Succinate 100 Mg Tablet Extended Release 24 Hr (Metoprolol succinate) ..... 1 tablet once a day Shruthi Gallagher Cardiology follow up :Last remote PPM check reviewed. Jae Miller Cardiology follow up :BP today: 154/101 P rior BP: 140/95 (06/22/2020) Her updated medication list for this problem includes: Hydrochlorothiazide 25 Mg Oral Tablet (Hydrochlorothiazide) ..... One tab daily Metoprolol Succinate Er 100 Mg Oral Tablet Extended Release 24 Hour (Metoprolol succinate) ..... One tab. daily Jae Martinezberg Cardiology follow up :She continues to have palpitations and shortness of breath similar to previously described. Getting worse. Will proceed to testing and add echo, CXR, BNP and COVID-19 antibodies. Jae [facility] Cardiology follow up :She continues to have palpitations and shortness of breath similar to previously described. Getting worse. Will proceed to testing and add echo, CXR, BNP and COVID-19 antibodies. Jae [facility] Electrophysiology - completed : H er updated medication list for this problem includes: Metoprolol Succinate Er 100 Mg Oral Tablet Extended Release 24 Hour (Metoprolol succinate) ..... One tab. daily Semaj Solomon Electrophysiology - completed : H er updated medication list for this problem includes: Metoprolol Succinate Er 100 Mg Oral Tablet Extended Release 24 Hour (Metoprolol succinate) ..... One tab. daily Orders: S tress Routine (CPT-91186) Stress Nuc 10/2019: E TT Summary 1 . Normal exercise capacity 2 . Normal hemodynamic response to exercise 3 . No diagnostic ST or T changes 4 . No significant arrhythmias 5 . There is no evidence for exercise-induced myocardial ischemia . ............................................... ...................Brenda Melgar MD November 10, 2018 10:28 AM Semaj Solomon Electrophysiology - completed : O rders: F VC - 74641 (50381) F RC - 10391 (04528) D LCO - 26563 (66952) 9 9215 HIGH Complex (CPT-53297) Last PFTS 2016: C onclusions: M ild Obstructive Airways Disease. Following administration of bronchodilators, there is no significant response. N o significant restriction. M oderate Diffusion Defect when not corrected for alveolar volume, but only minimal Diffusion Defect when corrected for alveolar v olume P ulmonary Function Diagnosis: M ild Obstructive Airways Disease. Following administration of bronchodilators, there is no significant response. N o significant restriction. M oderate Diffusion Defect when not corrected for alveolar volume, but only minimal Diffusion Defect when corrected for alveolar v olume Her updated medication list for this problem includes: Hydrochlorothiazide 25 Mg Oral Tablet (Hydrochlorothiazide) ..... One tab daily Metoprolol Succinate Er 100 Mg Oral Tablet Extended Release 24 Hour (Metoprolol succinate) ..... One tab. daily Semaj Solomon Electrophysiology - completed :EP STUDY 08/2019:: O perative Findings: P resenting rhythm sinus with concentric CS activation. N ormal antegrade AV francine conduction with antegrade AV Wenckebach documented at 420 milliseconds paced t rain when paced from left atrium. N o pre-excitation of left ventricle seen when paced from left atrium. 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 Her updated medication list for this problem includes: Metoprolol Succinate Er 100 Mg Oral Tablet Extended Release 24 Hour (Metoprolol succinate) ..... One tab. daily Semaj Juanito Telehealth: H er updated medication list for this problem includes: Metoprolol Succinate Er 100 Mg Oral Tablet Extended Release 24 Hour (Metoprolol succinate) ..... One tab. daily [facility] Telehealth: H er updated medication list for this problem includes: Hydrochlorothiazide 25 Mg Oral Tablet (Hydrochlorothiazide) ..... One tab daily Metoprolol Succinate Er 100 Mg Oral Tablet Extended Release 24 Hour (Metoprolol succinate) ..... One tab. daily [facility] Telehealth: P rior BP: 110/76 (08/25/2019) Labs Reviewed: C reat: 0.95 (08/10/2019) Her updated medication list for this problem includes: Hydrochlorothiazide 25 Mg Oral Tablet (Hydrochlorothiazide) ..... One tab daily Metoprolol Succinate Er 100 Mg Oral Tablet Extended Release 24 Hour (Metoprolol succinate) ..... One tab. daily [facility] Telehealth: H er updated medication list for this problem includes: Metoprolol Succinate Er 100 Mg Oral Tablet Extended Release 24 Hour (Metoprolol succinate) ..... One tab. daily Conrad Pruitt TeleHealth:BP has be en elevated but she has been out of HCTZ. Prior BP: 110/76 (08/25/2019) Her updated medication list for this problem includes: Hydrochlorothiazide 25 Mg Oral Tablet (Hydrochlorothiazide) ..... One tab daily Metoprolol Succinate Er 100 Mg Oral Tablet Extended Release 24 Hour (Metoprolol succinate) ..... One tab. daily Jae Miller TeleHealth:In recent months she has been having palpitations and SOB with mild exertion. Echo and Myoview scan were normal last year. Her SOB may be non cardiac . Will obtain CXR and PFT's after coronavirus epidemic. Jae [facility] TeleHealth:In recent months she has been having palpitations and SOB with mild exertion. Echo and Myoview scan were normal last year. No arrhythmia noted on last PMR check from 11/08/2019. Will have arrhythmia center review her transmissions. Jae [facility] Electrophysiology: T he following medications were removed from the medication list: Coumadin 5 Mg Oral Tablet (Warfarin sodium) ..... One tablet daily, starting one week prior to procedure. H er updated medication list for this problem includes: Metoprolol Succinate Er 100 Mg Oral Tablet Extended Release 24 Hour (Metoprolol succinate) ..... One tab. daily Venkatesh Carbone MD Electrophysiology: B P today: 110/76 P rior BP: 130/80 (07/30/2019) Labs Reviewed: C reat: 0.95 (08/10/2019) Her updated medication list for this problem includes: Hydrochlorothiazide 25 Mg Oral Tablet (Hydrochlorothiazide) ..... One tab daily Metoprolol Succinate Er 100 Mg Oral Tablet Extended Release 24 Hour (Metoprolol succinate) ..... One tab. daily Venkatesh Carbone MD Electrophysiology Venkatesh de la o MD Electrophysiology Venkatesh de la o MD EP pre-op .symptomat ic tach VR>180bpm.EPS/ABL was recommended: B P today: 130/80 P rior BP: 122/80 (10/23/2018) Labs Reviewed: C reat: 0.96 (05/17/2011) Conrad Pruitt EP pre-op .symptomat ic tach VR>180bpm.EPS/ABL was recommended:Discussed risks, benefits, and alternatives of ablation procedure. Pt agrees with this plan. Conrad Pruitt EP pre-op .symptomat ic tach VR>180bpm.EPS/ABL was recommended:Discussed risks, benefits, and alternatives of ablation procedure. Pt agrees with this plan. Conrad Pruitt Cardiology follow up :BP today: 122/80 P rior BP: 146/80 (04/01/2018) Her updated medication list for this problem includes: Hydrochlorothiazide 25 Mg Oral Tablet (Hydrochlorothiazide) ..... One tab daily Metoprolol Succinate Er 100 Mg Oral Tablet Extended Release 24 Hour (Metoprolol succinate) ..... One tab. daily [facility] Cardiology follow up :Orders: C omplete Echo (CPT-71989) S tress Exercise Cardiolite (CPT-82332) [facility] Cardiology follow up :Orders: C omplete Echo (CPT-90890) S tress Exercise Cardiolite (CPT-18395) [facility] Cardiology Follow up :Pacemaker function satisfactory. Juan Manuel Toledo MD Cardiology Follow up :Elevated in the office today; will continue to monitor. She stopped her lisinopril but continues metoprolol and HCTZ. Juan Manuel Toledo MD Cardiology Follow up :SOB with mild exertion. Likely related to deconditioning. Her pacemaker function is satisfactory. Her echocardiogram in 2016 showed normal LV size and systolic function with an EF of 70%. Will recheck at next visit. Her lungs are clear on exam. Advised her to increase her exercise. The patient has been reassured. Juan Manuel Toledo MD Cardiology Lynette Salazar MD Cardiology:Non enthu siastic on titration. Had mild JAMILA on home sleep. Can arrange for AutoPAP and if she does not to well with that, will need formal sleep study for titration. Lynette Salazar MD Cardiology:Overall h as been uncontrolled on several office visits. On Toprol 100mg and lisinopril 20mg. She may benefit from the addition of a low dose diuretic such as HCTZ at 25mg daily. She is okay with dietary supplementation of potassium. Sxs may be attributable to combination of JAMILA and HTN. Lynette Salazar MD Cardiology:She has a pacemaker. Has not had home monitoring report since August 11. Has 10.1 years left on generator. Had SVT, on high dose beta dylon. Lynette Salazar MD Cardiology:No complaints of head aches today. Jae [facility] Cardiology:Denies any recurrence . Jae [facility] Cardiology:Some dizziness but no syncope. [facility] Cardiology:Some dizziness but no syncope. Jae [facility] Cardiology:STRONGLY ENCOURAGED TO STOP SMOKING; SMOKING CESSATION TECHNIQUES DISCUSSED. [facility] Cardiology:Pt compla ins of difficulty controlling BP. Will obtain a home sleep study and renal artery duplex. BP today: 155/99 P rior BP: 134/90 (02/05/2016) Her updated medication list for this problem includes: Lisinopril 20 Mg Tabs (Lisinopril) ..... One tablet daily <--- Dose increased Metoprolol Succinate 100 Mg Tb24 (Metoprolol succinate) ..... One tab. daily Jae Angela Cardiology:Denies chest pain. Leda Johnson MD Cardiology:BP today: 134/90 P rior BP: 185/126 (10/04/2015) Her updated medication list for this problem includes: Lisinopril 10 Mg Tabs (Lisinopril) ..... One tab. daily Metoprolol Succinate 100 Mg Tb24 (Metoprolol succinate) ..... One tab. daily Finn Johnson MD Cardiology:STRONGLY ENCOURAGED TO STOP SMOKING; SMOKING CESSATION TECHNIQUES DISCUSSED. Finn Johnson MD Cardiology:Complaini ng of SOB with mild exertion. Will obtain echo and PFT's. Myoview scan was negative for ischemia last year. Finn Johnson MD Cardiology:Pacemaker interrogation is unremarkable. Juan Manuel Toledo MD Cardiology:Describes it as unable to take a deep breath. Clinically the lungs are clear. The EKG is normal. Symptoms likely related to elevated blood pressure. Juan Manuel Toledo MD Cardiology:Blood pre ssure is elevated today. Started on Lisinopril 10 mg daily. Will come in for a repeat blood pressure check tomorrow. Juan Manuel Toledo MD follow up: T he following medications were removed from the medication list: Accuretic 20-12.5 Mg Tabs (Quinapril-hydrochlorothiazide) ..... Twotabs. daily Her updated medication list for this problem includes: Metoprolol Succinate 100 Mg Tb24 (Metoprolol succinate) ..... One tab. daily Diego Segura MD follow up: T he following medications were removed from the medication list: Accuretic 20-12.5 Mg Tabs (Quinapril-hydrochlorothiazide) ..... Twotabs. daily Her updated medication list for this problem includes: Metoprolol Succinate 100 Mg Tb24 (Metoprolol succinate) ..... One tab. daily Diego Segura MD follow up: T he following medications were removed from the medication list: Accuretic 20-12.5 Mg Tabs (Quinapril-hydrochlorothiazide) ..... Twotabs. daily Her updated medication list for this problem includes: Metoprolol Succinate 100 Mg Tb24 (Metoprolol succinate) ..... One tab. daily Diego Segura MD follow up: T he following medications were removed from the medication list: Accuretic 20-12.5 Mg Tabs (Quinapril-hydrochlorothiazide) ..... Twotabs. daily Her updated medication list for this problem includes: Metoprolol Succinate 100 Mg Tb24 (Metoprolol succinate) ..... One tab. daily Diego Segura MD follow up: T he following medications were removed from the medication list: Accuretic 20-12.5 Mg Tabs (Quinapril-hydrochlorothiazide) ..... Twotabs. daily Her updated medication list for this problem includes: Metoprolol Succinate 100 Mg Tb24 (Metoprolol succinate) ..... One tab. daily Diego Segura MD follow up: T he following medications were removed from the medication list: Accuretic 20-12.5 Mg Tabs (Quinapril-hydrochlorothiazide) ..... Twotabs. daily Her updated medication list for this problem includes: Metoprolol Succinate 100 Mg Tb24 (Metoprolol succinate) ..... One tab. daily Diego Segura MD follow up: H er updated medication list for this problem includes: Metoprolol Succinate 100 Mg Tb24 (Metoprolol succinate) ..... One tab. daily Accuretic 20-12.5 Mg Tabs (Quinapril-hydrochlorothiazide) ..... Twotabs. daily Micardis 40 Mg Tabs (Telmisartan) ..... One tab daily BP today: 150/110 P rior BP: 147/97 (12/24/2010) Labs Reviewed: C reat: 0.96 (05/17/2011) Brenda Melgar MD follow up: H er updated medication list for this problem includes: Metoprolol Succinate 100 Mg Tb24 (Metoprolol succinate) ..... One tab. daily Accuretic 20-12.5 Mg Tabs (Quinapril-hydrochlorothiazide) ..... Twotabs. daily BP today: 150/110 Prior BP: 147/97 (12/24/2010) N uclear Stress Findings: normal (07/09/2006) C ardiac Cath: EF- 60% N o Fixed obstructive coronary artery disease. N ormal left ventricular systolic function. (04/28/2008) C arotid Doppler/Duplex: less than 50% stenosis of the ICA bilaterally T he flow in the vertebral arteries is antegrade bilaterally (07/23/2006) H gb: 14.8 (05/17/2011) HCT: 43.0 (05/17/2011) RBC: 4.56 (05/17/2011) WBC: 9.1 (05/17/2011) B UN: 15.1 (05/17/2011) Creat: 0.96 (05/17/2011) Na+: 137 (05/17/2011) K+: 4.0 (05/17/2011) Cl: 103 (05/17/2011) PT: 10.4 (05/17/2011) INR: 1.0 (05/17/2011) P TT: 29.4 (05/17/2011) E chocardiogram: Normal left ventricular systolic function. Normal left ventricular size. There is borderline left ventricular hypertrophy. Normal E/E` 5.0. Left ventricular ejection fraction is estimated at 65%. There is trace physiologic mitral valve regurgitation. There is non-specific t hickening of the mitral valve leaflets. GC (01/18/2010) Brenda Melgar MD follow up Brenda Melgar MD follow up: H er updated medication list for this problem includes: Metoprolol Succinate 100 Mg Tb24 (Metoprolol succinate) ..... One tab. daily Accuretic 20-12.5 Mg Tabs (Quinapril-hydrochlorothiazide) ..... Twotabs. daily BP today: 150/110 Prior BP: 147/97 (12/24/2010) N uclear Stress Findings: normal (07/09/2006) C ardiac Cath: EF- 60% N o Fixed obstructive coronary artery disease. N ormal left ventricular systolic function. (04/28/2008) C arotid Doppler/Duplex: less than 50% stenosis of the ICA bilaterally T he flow in the vertebral arteries is antegrade bilaterally (07/23/2006) H gb: 14.8 (05/17/2011) HCT: 43.0 (05/17/2011) RBC: 4.56 (05/17/2011) WBC: 9.1 (05/17/2011) B UN: 15.1 (05/17/2011) Creat: 0.96 (05/17/2011) Na+: 137 (05/17/2011) K+: 4.0 (05/17/2011) Cl: 103 (05/17/2011) PT: 10.4 (05/17/2011) INR: 1.0 (05/17/2011) P TT: 29.4 (05/17/2011) Brenda Melgar MD follow up: H er updated medication list for this problem includes: Metoprolol Succinate 100 Mg Tb24 (Metoprolol succinate) ..... One tab. daily Accuretic 20-12.5 Mg Tabs (Quinapril-hydrochlorothiazide) ..... Twotabs. daily Micardis 40 Mg Tabs (Telmisartan) ..... One tab daily BP today: 150/110 P rior BP: 147/97 (12/24/2010) Labs Reviewed: C reat: 0.96 (05/17/2011) Brenda Melgar MD follow up: H er updated medication list for this problem includes: Metoprolol Succinate 100 Mg Tb24 (Metoprolol succinate) ..... One tab. daily Accuretic 20-12.5 Mg Tabs (Quinapril-hydrochlorothiazide) ..... Twotabs. daily BP today: 150/110 Prior BP: 147/97 (12/24/2010) H gb: 14.8 (05/17/2011) HCT: 43.0 (05/17/2011) RBC: 4.56 (05/17/2011) WBC: 9.1 (05/17/2011) B UN: 15.1 (05/17/2011) Creat: 0.96 (05/17/2011) Na+: 137 (05/17/2011) K+: 4.0 (05/17/2011) Cl: 103 (05/17/2011) Holter Monitor: Underlying rhythm is sinus with A pacing from 54-135bpm 3 Isolated VE beats with no pairs or runs noted. 13 Isolated SVE beats with no pairssss and 1 atrial run 5 beats @ 100bpm @ 4:51 am. Frequent diary events noted strips saved Captured and sensing failure noted strips saved. (12/31/2006) E vent Monitor: episodes of sb-st with hr range of 51-118 with c/o of [id number]-dizziness-blurred vision-near syncopy (07/10/2007) N uclear Stress Findings: normal (07/09/2006) E chocardiogram: Normal left ventricular systolic function. Normal left ventricular size. There is borderline left ventricular hypertrophy. Normal E/E` 5.0. Left ventricular ejection fraction is estimated at 65%. There is trace physiologic mitral valve regurgitation. There is non-specific t hickening of the mitral valve leaflets. GC (01/18/2010) C ardiac Cath: EF- 60% N o Fixed obstructive coronary artery disease. N ormal left ventricular systolic function. (04/28/2008) Brenda Melgar MD dizziness, sob, pre syncope: T he Patient was reencouraged to stop smoking. RAHUL ROSALES MD dizziness, sob, pre syncope:Nml fn on last interrogation RAHUL ROSALES MD dizziness, sob, pre syncope:Dizziness ? arrhythmias U nlikely to be a obdulia event since she has PPM M Ay be vaso vagal w ill check Holter I f Holter nml and she still has Sx we can consider SSRIs RAHUL ROSALES MD dizziness, sob, pre syncope:BP well controlled c ontinue Metoprolol Succinate 100 Mg Tb24 (Metoprolol succinate) ..... One tab. daily Accuretic 20-12.5 Mg Tabs (Quinapril-hydrochlorothiazide) ..... Twotabs. daily P atient is advised to follow a salt restricted diet. RAHUL ROSALES MD routine=pacemaker: H er updated medication list for this problem includes: Metoprolol Succinate 100 Mg Tb24 (Metoprolol succinate) ..... One tab. daily Accuretic 20-12.5 Mg Tabs (Quinapril-hydrochlorothiazide) ..... Twotabs. daily BP today: 148/100 Prior BP: 126/82 (06/17/2008) N uclear Stress Findings: normal (07/09/2006) C ardiac Cath: EF- 60% N o Fixed obstructive coronary artery disease. N ormal left ventricular systolic function. (04/28/2008) C arotid Doppler/Duplex: less than 50% stenosis of the ICA bilaterally T he flow in the vertebral arteries is antegrade bilaterally (07/23/2006) E chocardiogram: normal LV systolic function with EF of 455-60% L eft ventricular hypertrophy M yxomatous mitral valve M itral annular calcification mild mitral regurg m ild triscuspid regurg m ild pulmonary hypertension with a PA pressure of 35mmHG (06/11/2007) Orders: E KG (CPT-79637) Finn Johnson MD office visit: H er updated medication list for this problem includes: Metoprolol Tartrate 100 Mg Tabs (Metoprolol tartrate) ..... 1 tab bid Accuretic 20-12.5 Mg Tabs (Quinapril-hydrochlorothiazide) ..... Twotabs. daily BP today: 126/82 P rior BP: 201/121 (04/11/2008) Ray Mon MD office visit: H er updated medication list for this problem includes: Metoprolol Tartrate 100 Mg Tabs (Metoprolol tartrate) ..... 1 tab bid Accuretic 20-12.5 Mg Tabs (Quinapril-hydrochlorothiazide) ..... Twotabs. daily BP today: 126/82 Prior BP: 201/121 (04/11/2008) H olter Monitor: Underlying rhythm is sinus with A pacing from 54-135bpm 3 Isolated VE beats with no pairs or runs noted. 13 Isolated SVE beats with no pairssss and 1 atrial run 5 beats @ 100bpm @ 4:51 am. Frequent diary events noted strips saved Captured and sensing failure noted strips saved. (12/31/2006) E vent Monitor: episodes of sb-st with hr range of 51-118 with c/o of [id number]-ziduxukflfcksmm-dizziness-blurred vision-near syncopy (07/10/2007) N uclear Stress Findings: normal (07/09/2006) E chocardiogram: normal LV systolic function with EF of 455-60% L eft ventricular hypertrophy M yxomatous mitral valve M itral annular calcification m ild mitral regurg m ild triscuspid regurg m ild pulmonary hypertension with a PA pressure of 35mmHG (06/11/2007) C ardiac Cath: EF- 60% N o Fixed obstructive coronary artery disease. N ormal left ventricular systolic function. (04/28/2008) c heck orthostatics today.130 lying and 120 standing. Ray Mon MD office visit: H er updated medication list for this problem includes: Metoprolol Tartrate 100 Mg Tabs (Metoprolol tartrate) ..... 1 tab bid Accuretic 20-12.5 Mg Tabs (Quinapril-hydrochlorothiazide) ..... Twotabs. daily BP today: 126/82 Prior BP: 201/121 (04/11/2008) N uclear Stress Findings: normal (07/09/2006) C ardiac Cath: EF- 60% N o Fixed obstructive coronary artery disease. N ormal left ventricular systolic function. (04/28/2008) C arotid Doppler/Duplex: less than 50% stenosis of the ICA bilaterally T he flow in the vertebral arteries is antegrade bilaterally (07/23/2006) E chocardiogram: normal LV systolic function with EF of 455-60% L eft ventricular hypertrophy M yxomatous mitral valve M itral annular calcification m ild mitral regurg m ild triscuspid regurg m ild pulmonary hypertension with a PA pressure of 35mmHG (06/11/2007) Orders: E KG (CPT-[id number]) Ray Mon MD cp: H er updated medication list for this problem includes: Metoprolol Tartrate 100 Mg Tabs (Metoprolol tartrate) ..... 1 tab bid Accuretic 20-12.5 Mg Tabs (Quinapril-hydrochlorothiazide) ..... Twotabs. daily Orders: R enal Artery Duplex (CPT-[id number]) Finn Johnson MD cp: H er updated medication list for this problem includes: Metoprolol Tartrate 100 Mg Tabs (Metoprolol tartrate) ..... 1 tab bid Accuretic 20-12.5 Mg Tabs (Quinapril-hydrochlorothiazide) ..... Twotabs. daily Finn Johnson MD PLEASE SIGN/CASSANDRA : O rders: D ual Chamber w/o Reprogramming (CPT-[id number]) Finn Johnson MD PLEASE SIGN/CASSANDRA : H er updated medication list for this problem includes: Metoprolol Tartrate 100 Mg Tabs (Metoprolol tartrate) ..... 1 tab bid Finn Johnson MD PLEASE SIGN/CASSANDRA : H er updated medication list for this problem includes: increased RX to Metoprolol Tartrate 50 Mg Tabs (Metoprolol tartrate) ..... 1 tab bid Finn Johnson MD PLEASE SIGN/CASSANDRA : H er updated medication list for this problem includes: Metoprolol Tartrate 100 Mg Tabs (Metoprolol tartrate) ..... 1 tab bid Her updated medication list for this problem includes: Metoprolol Tartrate 50 Mg Tabs (Metoprolol tartrate) ..... 1 tab bid P t has a long history of syncope Finn Johnson MD ready to sign: H er updated medication list for this problem includes: increased RX to Metoprolol Tartrate 50 Mg Tabs (Metoprolol tartrate) ..... 1 tab bid Her updated medication list for this problem includes: Metoprolol Tartrate 50 Mg Tabs (Metoprolol tartrate) ..... 1 tab bid Finn Johnson MD : H er updated medication list for this problem includes: Metoprolol Tartrate 50 Mg Tabs (Metoprolol tartrate) ..... 1 tab bid P t has a long history of syncope Finn Johnson MD : H er updated medication list for this problem includes: increased RX to Metoprolol Tartrate 50 Mg Tabs (Metoprolol tartrate) ..... 1 tab bid Finn Johnson MD Date Name Complete Echo PROTHROMBIN TIME WIT H INR CBC (INCLUDES DIFF/P LT) BASIC METABOLIC PANE L W/EGFR PROTHROMBIN TIME WIT H INR CBC (INCLUDES DIFF/P LT) BASIC METABOLIC PANE L W/EGFR Stress Regadenoson X-Ray, Chest 2 View COMPREHENSIVE METABO LIC PANEL, W/EGFR TSH, free T4, total T3 PROBNP, N TERMINAL CBC (INCLUDES DIFF/P LT) Stress Routine VenaSeal Complete Echo PROTHROMBIN TIME WIT H INR CBC (INCLUDES DIFF/P LT) BASIC METABOLIC PANE L W/EGFR CBC (INCLUDES DIFF/P LT) BASIC METABOLIC PANE L W/EGFR LIPID PANEL PROTHROMBIN TIME WIT H INR Venogram w/ IVUS - S LHV Venous Doppler Bilat eral LE - Reflux Venous Doppler Bilat eral LE - Reflux Venous Doppler Bilat eral LE Venous Doppler Bilat eral LE Complete Echo Partial Thromboplast in Time, Activated PROTHROMBIN TIME WIT H INR CBC (INCLUDES DIFF/P LT) COMPREHENSIVE METABO LIC PANEL, W/EGFR PARTIAL THROMBOPLAST IN TIME, ACTIVATED URINALYSIS, COMPLETE W/REFLEX TO CULTURE COMPREHENSIVE METABO LIC PANEL W/EGFR PROTHROMBIN TIME WIT H INR CBC (INCLUDES DIFF/P LT) PARTIAL THROMBOPLAST IN TIME, ACTIVATED URINALYSIS, COMPLETE W/REFLEX TO CULTURE COMPREHENSIVE METABO LIC PANEL W/EGFR PROTHROMBIN TIME WIT H INR CBC (INCLUDES DIFF/P LT) X-Ray, Chest - Routi ne Stress Routine DLCO - 85477 FRC - 33812 FVC - 15938 Complete Echo Sleep Study Home Stress Routine RPM (remote patient monitoring) Complete Echo COVID19 High Affinit y Antibodies (LC) Covid Antibody IgA ( LC) Covid Antibody IgM ( LC) TSH, free T4, total T3 IRON AND TOTAL IRON BINDING CAPACITY FERRITIN CBC (INCLUDES DIFF/P LT) D-DIMER, QUANTITATIV E B TYPE NATRIURETIC P EPTIDE (BNP) COMPREHENSIVE METABO LIC PANEL, W/EGFR X-Ray, Chest - Routi ne Complete Echo Stress Routine DLCO - 53204 FRC - 61872 FVC - 99298 X-Ray, Chest - Routi ne Stress Routine DLCO - 03432 FRC - 44476 FVC - 76586 X-Ray, Chest - Routi ne DLCO - 95680 FRC - 93172 FVC - 62542 PARTIAL THROMBOPLAST IN TIME, ACTIVATED BASIC METABOLIC PANE L W/EGFR CBC (INCLUDES DIFF/P LT) DLCO - 68758 FRC - 88877 FVC - 02214 CT Cardiac with cont rast (Pre-Ablation) ABLATION w/ Anesthes ia Stress Exercise Card iolite Complete Echo Complete Echo Other Test Renal Artery Duplex Sleep Study Home Complete Echo Carotid Duplex Bilat eral DLCO - 53862 FRC - 93744 FVC - 02832 COMPREHENSIVE METABO LIC PANEL W/EGFR D-DIMER, QUANTITATIV E CBC (H/H, RBC, INDIC ES, WBC, PLT) STR - Adenosine ECP Commercial Complete Echo Carotid Duplex Bilat eral STR - Nuclear Complete Echo STR - Nuclear Renal Artery Duplex Complete Echo Renal Artery Duplex Dual Chamber w/o Rep roganuragming Complete Echo Phone 5-10 HISTORY OF PROCEDURES Procedure Date Procedure Name Provider Procedure Notes S tatus Schedule Followup Venkatesh de la o MD [address] CARBONE completed EKG Venkatesh ryan MD completed EKG Finn Johnson MD completed EKG Venkatesh ryan MD completed EKG Finn Johnson MD completed Schedule Followup Venkatesh de la o MD [address] Carbone with device check completed EKG Finn Johnson MD completed FVC / MVV with bronchodilator - 14305 Finn Johnson MD completed FRC - 73997 Finn Johnson MD completed SpO2 w/o 6min walk/titration Finn Johnson MD completed DLCO - 23264 Finn Johnson MD complete d EKG Venkatesh ryan MD completed Protime Ray Mon MD completed EKG Venkatesh ryan MD completed Pacemaker Interrogation, Remote (Tech) Finn Johnson MD INTERROGATION REMOTE </90 D SUPPORT MERCHANDISER REVIEW completed Pacemaker Interrogation, Remote (Prof) Finn Johnson MD INTERROGATION EVAL REMOTE </90 D 1/2/STEM PROCESSING MACHINE OPERATOR LEAD P completed ICM Interrogation, Remote (Prof) Finn Johnson MD INTERROGATION EVAL REMOTE </30 D CV MNTR SYS completed ICM Interrogation, Remote (Tech) Finn Johnson MD INTERROGATION EVAL REMOTE </30 D TECH REVIEW completed Pacemaker Interrogation, Remote (Tech) Finn Johnson MD INTERROGATION REMOTE </90 D SUPPORT MERCHANDISER REVIEW completed Pacemaker Interrogation, Remote (Prof) Finn Johnson MD INTERROGATION EVAL REMOTE </90 D 1/2/STEM PROCESSING MACHINE OPERATOR LEAD P completed Cardiolite, 2 units Finn Johnson MD c ompleted SPECT Images Aren Alexander MD completed Stress EKG Brenda Melgar MD completed Pacemaker Interrogation, Remote (Tech) Juan Manuel Toledo MD INTERROGATION REMOTE </90 D SUPPORT MERCHANDISER REVIEW completed Pacemaker Interrogation, Remote (Prof) Juan Manuel Toledo MD INTERROGATION EVAL REMOTE </90 D 1/2/STEM PROCESSING MACHINE OPERATOR LEAD P completed Pacemaker Interrogation, Remote (Tech) Juan Maneul Toledo MD INTERROGATION REMOTE </90 D SUPPORT MERCHANDISER REVIEW completed Pacemaker Interrogation, Remote (Prof) Juan Manuel Toledo MD INTERROGATION EVAL REMOTE </90 D 1/2/STEM PROCESSING MACHINE OPERATOR LEAD P completed EKG Juan Manuel Toledo MD complet ed Pacemaker Interrogation, Remote (Tech) Finn Johnson MD INTERROGATION REMOTE </90 D SUPPORT MERCHANDISER REVIEW completed Pacemaker Interrogation, Remote (Prof) Finn Johnson MD INTERROGATION EVAL REMOTE </90 D 1/2/STEM PROCESSING MACHINE OPERATOR LEAD P completed Pacemaker Interrogation, Remote (Tech) Finn Johnson MD INTERROGATION REMOTE </90 D SUPPORT MERCHANDISER REVIEW completed Pacemaker Interrogation, Remote (Prof) Finn Johnson MD INTERROGATION EVAL REMOTE </90 D 1/2/STEM PROCESSING MACHINE OPERATOR LEAD P completed EKG Lynette Salazar MD completed SNOMED-CT: [id number] Current Medications Documented Lynette Salazar MD completed Pacemaker Interrogation, Remote (Tech) Finn Johnson MD INTERROGATION REMOTE </90 D SUPPORT MERCHANDISER REVIEW completed Pacemaker Interrogation, Remote (Prof) Finn Johnson MD INTERROGATION EVAL REMOTE </90 D 1/2/STEM PROCESSING MACHINE OPERATOR LEAD P completed Pacemaker Interrogation, Remote (Tech) Finn Johnson MD INTERROGATION REMOTE </90 D SUPPORT MERCHANDISER REVIEW completed Pacemaker Interrogation, Remote (Prof) Finn Johnson MD INTERROGATION EVAL REMOTE </90 D 1/2/STEM PROCESSING MACHINE OPERATOR LEAD P completed SNOMED-CT: [id number] Smoking Cessation Counseling Finn Johnson MD completed EKG Finn Johnson MD completed SNOMED-CT: [id number] Current Medications Documented Finn Johnson MD completed Pacemaker Interrogation, Remote (Tech) Finn Johnson MD INTERROGATION REMOTE </90 D SUPPORT MERCHANDISER REVIEW completed Pacemaker Interrogation, Remote (Prof) Finn Johnson MD INTERROGATION EVAL REMOTE </90 D 1/2/STEM PROCESSING MACHINE OPERATOR LEAD P completed Pacemaker Interrogation, Remote (Tech) Finn Johnson MD INTERROGATION REMOTE </90 D SUPPORT MERCHANDISER REVIEW completed Pacemaker Interrogation, Remote (Prof) Finn Johnson MD INTERROGATION EVAL REMOTE </90 D 1/2/STEM PROCESSING MACHINE OPERATOR LEAD P completed Pacemaker Interrogation, Remote (Tech) Finn Johnson MD INTERROGATION REMOTE </90 D SUPPORT MERCHANDISER REVIEW completed Pacemaker Interrogation, Remote (Prof) Finn Johnson MD INTERROGATION EVAL REMOTE </90 D 1/2/STEM PROCESSING MACHINE OPERATOR LEAD P completed Pacemaker Interrogation, Remote (Tech) Finn Johnson MD INTERROGATION REMOTE </90 D SUPPORT MERCHANDISER REVIEW completed Pacemaker Interrogation, Remote (Prof) Finn Johnson MD INTERROGATION EVAL REMOTE </90 D 1/2/STEM PROCESSING MACHINE OPERATOR LEAD P completed BLOOD COUNT HEMOGLOBIN Finn Johnson MD completed FVC - 97722 Finn Johnson MD completed FRC - 75551 Finn Johnson MD completed DLCO - 54050 Finn Johnson MD complete d SNOMED-CT: [id number] Smoking Cessation Counseling Finn Johnson MD completed SNOMED-CT: [id number] Current Medications Documented Finn Johnson MD completed Pacemaker Interrogation, Remote (Tech) Juan Manuel Toledo MD INTERROGATION REMOTE </90 D SUPPORT MERCHANDISER REVIEW completed Pacemaker Interrogation, Remote (Prof) Juan Manuel Toledo MD INTERROGATION EVAL REMOTE </90 D 1/2/STEM PROCESSING MACHINE OPERATOR LEAD P completed Pacemaker Interrogation, Remote (Tech) Finn Johnson MD INTERROGATION REMOTE </90 D SUPPORT MERCHANDISER REVIEW completed Pacemaker Interrogation, Remote (Prof) Finn Johnson MD INTERROGATION EVAL REMOTE </90 D 1/2/STEM PROCESSING MACHINE OPERATOR LEAD P completed SNOMED-CT: [id number] Smoking Cessation Counseling Juan Manuel Toledo MD completed SNOMED-CT: [id number] Physical Exam, Performed: Pulse Exam of Foot Juan Manuel Toledo MD completed EKG Juan Manuel Toledo MD complet ed SNOMED-CT: [id number] Current Medications Documented Juan Manuel Toledo MD completed Pacemaker Interrogation, Remote (Tech) Finn Johnson MD INTERROGATION REMOTE </90 D SUPPORT MERCHANDISER REVIEW completed Pacemaker Interrogation, Remote (Prof) Finn Johnson MD INTERROGATION EVAL REMOTE </90 D 1/2/STEM PROCESSING MACHINE OPERATOR LEAD P completed Pacemaker Interrogation, Remote (Tech) Finn Johnson MD INTERROGATION REMOTE </90 D SUPPORT MERCHANDISER REVIEW completed Pacemaker Interrogation, Remote (Prof) Finn Johnson MD INTERROGATION EVAL REMOTE </90 D 1/2/STEM PROCESSING MACHINE OPERATOR LEAD P completed EKG Venkatesh ryan MD completed Pacemaker Interrogation, Remote (Tech) Finn Johnson MD INTERROGATION REMOTE </90 D SUPPORT MERCHANDISER REVIEW completed Pacemaker Interrogation, Remote (Prof) Finn Johnson MD INTERROGATION EVAL REMOTE </90 D 1/2/STEM PROCESSING MACHINE OPERATOR LEAD P completed ICM Interrogation, Remote (Prof) Finn Johnson MD INTERROGATION EVAL REMOTE </30 D CV MNTR SYS completed Pacemaker Interrogation, Remote (Tech) Finn Johnson MD INTERROGATION REMOTE </90 D SUPPORT MERCHANDISER REVIEW completed Pacemaker Interrogation, Remote (Prof) Finn Johnson MD INTERROGATION EVAL REMOTE </90 D 1/2/STEM PROCESSING MACHINE OPERATOR LEAD P completed EKG Finn Johnson MD completed Pacemaker Interrogation, Remote (Tech) Finn Johnson MD INTERROGATION REMOTE </90 D SUPPORT MERCHANDISER REVIEW completed Pacemaker Interrogation, Remote (Prof) Finn Johnson MD INTERROGATION EVAL REMOTE </90 D 1/2/STEM PROCESSING MACHINE OPERATOR LEAD P completed Pacemaker Interrogation, Remote (Tech) Finn Johnson MD INTERROGATION REMOTE </90 D SUPPORT MERCHANDISER REVIEW completed Pacemaker Interrogation, Remote (Prof) Finn Johnson MD INTERROGATION EVAL REMOTE </90 D 1/2/STEM PROCESSING MACHINE OPERATOR LEAD P completed EKG Finn Johnson MD completed EKG Finn Johnson MD completed Schedule Pacer Check Finn Johnson MD completed EKG Finn Johnson MD completed EKG Finn Johnson MD completed EKG Finn Johnson MD completed ePrescribe - Check t his box if eRx is used Finn Johnson MD completed EKG Finn Johnson MD completed EKG Ray Mon MD completed EKG Finn Johnson MD completed
[2025-01-06 16:30] LABS: Influenza A QL RT-PCR Negative (Negative); Influenza B QL RT-PCR Negative (Negative); RSV RNA, RT-PCR Negative (Negative); SARS-CoV-2 RNA PCR Negative (Negative)
--- NOTE | 2025-01-06 18:22 | ED.GENADULT ---
HPI - General Adult General Chief complaint: Chest Pain Stated complaint: chest tightness/back pain Time Seen by Provider: 01/06/25 15:18 History of Present Illness HPI narrative: This is a 49-year-old female presenting with flu-like symptoms. The last several days she has been having fevers, body aches, nausea vomiting, diarrhea, chest pain, and shortness of breath. She has had a fever of 101. She denies abdominal pain urinary symptoms. Related Data Home Medications ?Medication ?Instructions ?Recorded ?Confirmed ?Last Taken ?Type duloxetine 60 mg capsule,delayed 60 mg PO DAILY 01/30/20 09/04/24 10/03/22 History release hydrochlorothiazide 25 mg tablet 25 mg PO DAILY 02/18/20 09/04/24 10/03/22 History gabapentin 300 mg capsule 300 mg PO DAILY 09/04/24 09/04/24 Unknown History Allergies Allergy/AdvReac Type Severity Reaction Status Date / Time Penicillins Allergy Intermediate Hives Verified 01/06/25 15:09 escitalopram (From Lexapro) Allergy Unknown Verified 01/06/25 15:09 [facility] Past Medical History Medical History Colon cancer screening Lupus [place] Nausea RUQ pain Vasovagal syncope Anxiety Hypertension Surgical History Surgical History History of tubal ligation S/P placement of cardiac pacemaker History of cholecystectomy Social History Social History Smoking status: Never smoker Alcohol intake: never Substance use: never Substance use type: does not use Living arrangements: with family Gender identity (if verbalized by the patient): Female Spiritual care concerns: No Exam Narrative: APPEARANCE: No apparent distress. Head: atraumatic. EYES: EOMI, NOSE: Atraumatic NECK: Trachea midline RESPIRATORY: No increased rate of breathing clear to auscultation CARDIOVASCULAR: Tachycardic, no peripheral edema ABDOMINAL: Soft nontender no guarding rebound no CVA tenderness MUSCULOSKELETAl: No obvious deformities NEURO: Alert. Moving 4/4 extremities SKIN:: Warm, dry. Normal color PSYCHIATRIC: Normal affect Course Vital Signs Vital signs: Vital Signs Temperature 97.1 F L 01/06/25 15:05 Pulse Rate 106 H 01/06/25 15:05 Respiratory Rate 18 01/06/25 15:05 Blood Pressure 135/108 H 01/06/25 15:05 Pulse Oximetry 100 01/06/25 15:05 Temperature 97.1 F L 01/06/25 15:05 Pulse Rate 89 01/06/25 17:37 Respiratory Rate 18 01/06/25 17:37 Blood Pressure 128/91 H 01/06/25 17:15 Pulse Oximetry 100 01/06/25 17:37 Oxygen Delivery Room Air 01/06/25 15:27 Medical Decision Making MDM Narrative Medical decision making narrative: -Course: 49-year-old female presenting with fevers headaches and body aches. CTA negative for PE or pneumonia. Laboratory studies including troponin/BNP within normal limits. Viral swabs are negative. Patient's presentation most consistent with viral illness. She received Toradol and normal saline with normalization of her heart rate. Patient is comfortable being discharged home with supportive care and will return if her condition is to worsen. -DDX includes but is not limited to: Viral illness/COVID/flu/pneumonia/PE/heart failure/ACS Vital Signs Vital Signs: Vital Signs Temperature 97.1 F L 01/06/25 15:05 Pulse Rate 106 H 01/06/25 15:05 Respiratory Rate 18 01/06/25 15:05 Blood Pressure 135/108 H 01/06/25 15:05 Pulse Oximetry 100 01/06/25 15:05 Temperature 97.1 F L 01/06/25 15:05 Pulse Rate 89 01/06/25 17:37 Respiratory Rate 18 01/06/25 17:37 Blood Pressure 128/91 H 01/06/25 17:15 Pulse Oximetry 100 01/06/25 17:37 Oxygen Delivery Room Air 01/06/25 15:27 Lab Data 01/06/25 15:26 01/06/25 15:26 Labs: Lab Results 01/06/25 01/06/25 01/06/25 Range/Units 15:26 15:26 15:49 WBC 10.0 (4.5-10.0) K/mm3 RBC 5.22 (4.2-5.4) M/mm3 Hgb 16.9 H (12.0-15.0) g/dL Hct 47.2 H (37.0-47.0) % MCV 90.4 (80-100) fl MCH 32.4 (26-34) pg MCHC 35.8 (32-36) g/dl RDW 13.1 (11.5-14.5) % Plt Count 269 (150-375) k/mm3 MPV 9.9 (7.4-10.4) fl Immature Gran % (Auto) 0.2 (0-0.5) % Neut % (Auto) 62.2 (45.5-73.1) % Lymph % (Auto) 25.1 (18.3-44.2) % Toole % (Auto) 10.8 H (2.6-8.5) % Eos % (Auto) 1.4 (0-4.4) % Baso % (Auto) 0.3 (0.2-1.2) % Lymph # (Auto) 2.51 (0.9-3.2) K/mm3 Toole # (Auto) 1.1 H (0.1-0.6) K/mm3 Eos # (Auto) 0.1 (0-0.3) K/mm3 Baso # (Auto) 0.0 (0.0-0.1) K/mm3 Abs Immat Gran (auto) 0.02 (0.00-0.031) K/mm3 Absolute Neuts (auto) 6.2 (1.3-6.7) K/mm3 Absolute Nucleated RBC 0.000 (0.0-0.012) K/mm3 Nucleated RBC % 0.0 (0.0-0.2) % PT 13.4 (11.1-14.7) Seconds INR 1.0 APTT 28.1 (22.3-36.8) Seconds D-Dimer 0.55 H Cancelled (<0.48) ug/mL Sodium 137 (137-145) mmol/L Potassium 2.9 L (3.4-5.0) mmol/L Chloride 98 (98-107) mmol/L Carbon Dioxide 27 (22-30) mmol/L Anion Gap 12 (4-12) mmol/L BUN 16 (7-17) mg/dL Creatinine 1.09 H (0.7-1.0) mg/dL Estim Creat Clear Calc 64 ml/min Estimated GFR 53 L (59 - ) Glucose 113 H (65-110) mg/dL Calcium 9.5 (8.4-10.2) mg/dL Total Bilirubin 1.6 H (0.2-1.3) mg/dL AST 51 H (14-36) U/L ALT 59 H (6-35) U/L Alkaline Phosphatase 90 (38-126) U/L Troponin I < 0.012 (0.000-0.034) ng/mL NT-Pro-B Natriuret Pep 189 H (19.9-100) pg/mL Total Protein 8.0 (6.3-8.2) g/dL Albumin 4.6 (3.5-5.1) g/dL Lipase 82 (23-300) U/L Influenza A (RT-PCR) Negative (Negative) Influenza B (RT-PCR) Negative (Negative) RSV (RT-PCR) Negative (Negative) SARS-CoV-2 RNA (RT-PCR) Negative (Negative) Discharge Plan Discharge Clinical Impression: Acute viral syndrome Patient Disposition: Home, Self-Care Condition: Stable Instructions: Antibiotic Form, Viral Syndrome (ED) Additional Instructions: Please use Motrin, Tylenol and Zofran for symptoms. If you feel your condition is getting worse, including worsening chest pain shortness of breath or intractable nausea vomiting along return to the ED for re-evaluation. Patient Language: Korean Prescriptions: New acetaminophen 500 mg tablet 1,000 mg PO TID PRN (Reason: chanda) 7 Days Qty: 42 0RF ibuprofen 800 mg tablet 800 mg PO TID PRN (Reason: pain) 7 Days Qty: 21 0RF ondansetron 4 mg tablet,disintegrating 4 mg PO Q8H PRN (Reason: nausea and vomiting) Qty: 30 0RF No Action benzonatate 200 mg capsule 200 mg PO TID PRN (Reason: cough) Qty: 20 0RF (DME) BreatheRite MDI Spacer Spacer See Rx Instructions .ROUTE .MEDSUPPLY Qty: 1 0RF Rx Instructions: As directed prednisone 20 mg tablet 40 mg PO DAILY 5 Days Qty: 10 0RF baclofen 10 mg tablet 10 mg PO TID 5 Days Qty: 15 0RF lidocaine 5 % adhesive patch,medicated 1 patch topical DAILY Qty: 15 0RF Rx Instructions: leave on most painful area for up to 12 hrs gabapentin 300 mg capsule 300 mg PO DAILY duloxetine 60 mg Capsule,Delayed Release(Dr/Ec) 60 mg PO DAILY hydrochlorothiazide 25 mg tablet 25 mg PO DAILY Follow-up/Referrals: Matilda,Lupe Paulino APRN [Primary Care Provider] -
== END 2025-01-06 18:40 | disposition home or self-care (01) ==
PROVIDERS: Student in an Organized Health Care Education/Training Program; Emergency Provider Emergency Medicine; PCP Nurse Practitioner Family
DX: B34.9 Viral infection, unspecified (principal); Z20.822 Contact with and (suspected) exposure to COVID-19; I10 Essential (primary) hypertension; M32.9 Systemic lupus erythematosus, unspecified; Z95.0 Presence of cardiac pacemaker; Z90.49 Acquired absence of other specified parts of digestive tract; Z79.899 Other long term (current) drug therapy; I49.1 Atrial premature depolarization
CPT/HCPCS: 36415; 71046; 71275; 80053; 83690; 83880; 84484; 85025; 85380; 85610; 85730; 87637; 93005; 96361; 96374; 99284; A9270; J1885; J7030; Q9967

== ENCOUNTER 2025-01-17 14:29 | Emergency (ER) | payer BC, SELFPAY ==
[2025-01-17 14:43] VITALS: BP 124/94; PULSE 72; RESP 16; TEMP 36.8; O2SAT 100
--- NOTE | 2025-01-17 14:56 | ED_ITS ---
HPI - Headache General Chief Complaint: Headache Stated Complaint: Headache Time Seen by Provider: 01/17/25 15:00 Source: patient and RN notes reviewed Mode of arrival: ambulatory Limitations: no limitations History of Present Illness HPI Narrative: 49-year-old female with pacemaker (for vasovagal syncope) presented for complaint of pain to the left side of face and pain to the left neck, shoulder and arm. Onset today. 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 She describes pain as constant, rated 8/10. Pain is worse when turning head left or tilting back, and tender to touch. Endorses full range of motion to the arms. She denies pain radiating down the arm, or decreased range of motion. Has not taken anything for pain. For the last 2 weeks, She reports intermittent symptoms of tingling sensation to both hands and feet, headache, and dizziness with standing. pt states 01/06 she was seen in ER for high heart rate; CTA negative. Scheduled with pcp in 2 days. Related Data Home Medications ?Medication ?Instructions ?Recorded ?Confirmed ?Last Taken ?Type duloxetine 60 mg capsule,delayed 60 mg PO DAILY 01/30/20 01/17/25 10/03/22 His tory release hydrochlorothiazide 25 mg tablet 25 mg PO DAILY 02/18/20 01/17/25 10/03/22 History gabapentin 300 mg capsule 300 mg PO DAILY 09/04/24 01/17/25 Unknown History metoprolol tartrate 50 mg tablet 50 mg PO Q12H 01/17/25 01/17/25 Unknown History Allergies Allergy/AdvReac Type Severity Reaction Status Date / Time Penicillins Allergy Intermediate Hives Verified 01/17/25 14:39 escitalopram (From Lexapro) Allergy Unknown Verified 01/17/25 14:39 Review of Systems Review of Systems: CONSTITUTIONAL: Denies body aches, fever, chills, or sweats. EYES: Denies visual changes, photophobia ENT: Denies rhinorrhea, congestion, sore throat, or otalgia. CARDIOVASCULAR: Denies chest pain, palpitations, or edema. RESPIRATORY: Denies cough or dyspnea. GASTROINTESTINAL: Denies abdominal pain, nausea, vomiting, or diarrhea. SKIN: Denies rash MUSCULOSKELETAL: Denies back pain, joint pain, or myalgia. NEUROLOGIC: Endorses headache, numbness, tingling, dizziness denies weakness to extremities All systems reviewed & are unremarkable except as noted in HPI and below PMFSH Past Medical History Medical History Colon cancer screening Lupus [place] Nausea RUQ pain Vasovagal syncope Anxiety Hypertension Surgical History Surgical History History of tubal ligation S/P placement of cardiac pacemaker History of cholecystectomy Social History Social History Smoking status: Never smoker Alcohol intake: never Substance use: never Substance use type: does not use Living arrangements: with family Gender identity (if verbalized by the patient): Female Spiritual care concerns: No Comments At time of signature, I have reviewed and agree with nursing past medical, surgical, social and family history unless otherwise noted. Please see nursing chart for further information. There is no relevant family history pertinent to the presenting complaint Exam Narrative: GENERAL: Well-appearing HEAD: Normocephalic, atraumatic. EYES: PERRLA, EOMI. ENT: Mucous membranes pink and moist. NECK: Decreased ROM due to pain. Supple. No vpt. CHEST: Clear to auscultation. HEART: Regular rate and rhythm. No murmur appreciated. Normal peripheral pulses. EXTREMITIES: Normal range of motion. Left trapezius, shoulder, and upper arm tenderness with palpation. Right foot decreased sensation with2 point discrimination. PPP. SKIN: Warm, dry, no rash noted to face. Capillary refill normal. Normal skin turgor. NEURO:No focal deficits. Alert and oriented x3. EOMs intact without nystagmus. No facial droop/asymmetry noted bilaterally. Intact sensation in face; Reports pain with light palpation to the left side of face. Grimace intact.Hearing intact bilaterally. Shoulder shrug intact. Strength 5/5 bilateral upper extremities. Ambulatory exam with a normal based, steady gait. PSYCH: Normal affect. Course Course Emergency Course: Patient is aware of diagnosis, understands and agrees to treatment plan. Anticipatory guidance given. Patient agrees to follow-up as directed and is aware of reasons to seek care at the emergency department. Portions of this record may have been created with voice recognition software Level of Care: Express Care Visit Vital Signs Vital signs: Vital Signs Temperature 98.3 F 01/17/25 14:43 Pulse Rate 72 01/17/25 14:43 Respiratory Rate 16 01/17/25 14:43 Blood Pressure 124/94 H 01/17/25 14:43 Pulse Oximetry 100 01/17/25 14:43 Temperature 98.3 F 01/17/25 14:43 Pulse Rate 72 01/17/25 14:43 Respiratory Rate 16 01/17/25 14:43 Blood Pressure 124/94 H 01/17/25 14:43 Pulse Oximetry 100 01/17/25 14:43 MDM - Headache MDM Narrative Medical decision making narrative: Patient is advised ER transfer for complaint of dizziness, numbness and tingling sensation, left facial pain and pain to the left arm. Requests Gold. Differential Diagnosis Differential diagnosis: Likely migraine, tension headache, subarachnoid hemorrhage, headache, meningitis, sinusitis and other (Migraine, tension-type headache, cluster headache, concussion, seizure, meningitis, encephalitis, neurosyphilis, SAH, subdural hematoma, brain tumor, hypertensive encephalopathy, brain abscess, multiple sclerosis, hemorrhagic stroke, Wernickes encephalopathy) Discharge Plan Discharge Clinical Impression: Acute facial pain Patient Disposition: Acute Care Hospital Condition: Stable Patient Language: [place]ill[place] Prescriptions: No Action (DME) [employer] MDI Spacer Spacer See Rx Instructions .ROUTE .MEDSUPPLY Qty: 1 0RF Rx Instructions: As directed metoprolol tartrate 50 mg tablet 50 mg PO Q12H gabapentin 300 mg capsule 300 mg PO DAILY acetaminophen 500 mg tablet 1,000 mg PO TID PRN (Reason: chanda) 7 Days Qty: 42 0RF duloxetine 60 mg Capsule,Delayed Release(Dr/Ec) 60 mg PO DAILY hydrochlorothiazide 25 mg tablet 25 mg PO DAILY Follow-up/Referrals: PHYSICIAN,WIC SITE COORDINATOR [Primary Care Provider] - Time of Disposition: 15:33 Quality [place] Coma Scale Verbal: Oriented and Alert Motor: Follows Commands Acute Stroke Pre-Treatment Evaluation Acute Ischemic Stroke Pretreatment Evaluation: Acute Ischemic Stroke Pre- Treatment Evaluation Inclusion Criteria (must answer yes to questions 1 and 2) 1. Age 18 Years Or Older: No 2. Onset Of Stroke Symptoms Well Established To Be Less Than 3 Hours: No 3. Clinical Diagnosis Of Ischemic Stroke Causing Measureable Neurological Deficit And A Non-Contrast Head CT Showing NO Hemorrage: No Contraindications (0-3 Hours) 5. Stroke Or Severe Head Trauma Within Past 3 Months: No 6. Known History Of Intracranial Hemorrage: No 7. Symptoms Or Clinical Presentation Suggestion Of Subarachnoid hemorrhage: No 8. Gastrointestinal Or Urinary Tract hemorrhage Within 21 Days: No 9. Prothrombin Time (TP) Greater Than 15 Seconds or An INR Greater Than 1.7 Or An Elevated Activated Partial Throboplastin Time (aPTT): No 10. Platelet Count <100,000/ml: No 11. Glucose Lower Than 50mg/dl Or Greater than 400mg/dl: No 12. Seizure At Onset Stroke: No 13. Acute Myocardial Infarction Or Post Myocardial Infarction Pericarditis: No 14. Arterial Puncture At A Non-Compressible Site, Biopsy of Internal Organ, Within The Preceding 7 Days: No 15. Major Surgery Or Serious Trauma (Besides Head) In The Previous 14 Days: No 16. Uncontrolled Or Sustained SBP (systolic>185 mmHg) or DBP (diastolic>110 mmHg) Or Requiring Aggressive Treatment To Lower: No 17. : No Contraindications (3-4.5 Hours) 1. Age Less Than 18 or Greater Than 80 years: No 2. Severe Stroke Assessed Clinically (NIHSS Score Greater Than 25): No 3. Combination Or Previous Stroke Or Diabetes Mellitus: No 4. Symptoms Minor Or Rapidly Improving: No
== END 2025-01-17 15:23 | disposition short-term general hospital (02) ==
PROVIDERS: Emergency Provider Nurse Practitioner Family
DX: G50.1 Atypical facial pain (principal); I10 Essential (primary) hypertension; Z95.0 Presence of cardiac pacemaker
CPT/HCPCS: 99213; G0463

== ENCOUNTER 2025-03-11 10:21 | Emergency (ER) | payer BC, SELFPAY ==
[2025-03-11 10:31] VITALS: BP 134/89; PULSE 71; RESP 16; TEMP 36.1; O2SAT 100
--- NOTE | 2025-03-11 10:40 | ED_ITS ---
HPI - Dizziness General Chief Complaint: Dizziness Stated Complaint: Headache/Vomiting/Back Pain Source: patient Mode of arrival: ambulatory Limitations: no limitations History of Present Illness HPI Narrative: Patient is a 49-year-old female who clinic with complaints of dizziness and right-sided back pain since Friday. She states that she passed out Friday. She endorses that she has had a history of kidney stones in the past and states it feels similar. Denies having any diabetes, shortness of breath, nausea, vomiting, body aches, fevers, or diarrhea. Related Data Home Medications ?Medication ?Instructions ?Recorded ?Confirmed ?Last Taken ?Type duloxetine 60 mg capsule,delayed 60 mg PO DAILY 01/30/20 02/14/25 10/03/22 History release hydrochlorothiazide 25 mg tablet 25 mg PO DAILY 02/18/20 02/14/25 10/03/22 History gabapentin 300 mg capsule 300 mg PO DAILY 09/04/24 02/14/25 Unknown History metoprolol tartrate 50 mg tablet 50 mg PO Q12H 01/17/25 02/14/25 Unknown History bupropion HCl 100 mg tablet 100 mg PO BID 02/14/25 02/14/25 Unknown History Allergies Allergy/AdvReac Type Severity Reaction Status Date / Time Penicillins Allergy Intermediate Hives Verified 03/11/25 10:31 escitalopram (From Lexapro) Allergy Hives Verified 03/11/25 10:31 Review of Systems Review of Systems: CONSTITUTIONAL: Denies body aches, fever, chills, or sweats. EYES: Denies?visual changes, redness, or discharge. ENT: Denies rhinorrhea, congestion, sore throat, or otalgia. CARDIOVASCULAR: Denies ?chest pain, palpitations, or edema. RESPIRATORY: Denies cough or dyspnea. GASTROINTESTINAL: Denies abdominal pain, nausea, vomiting, or diarrhea. GENITOURINARY: Denies dysuria or hematuria. SKIN: Denies rash, itching, or wounds. MUSCULOSKELETAL: Reports right sided back pain. NEUROLOGIC: Denies headache, denies numbness, tingling, or weakness. Reports?dizziness. PSYCH: ?Denies depression or anxiety. All systems reviewed & are unremarkable except as noted in HPI and below PMFSH Past Medical History Medical History Colon cancer screening Lupus [place] Nausea RUQ pain Vasovagal syncope Anxiety Hypertension Surgical History Surgical History History of tubal ligation S/P placement of cardiac pacemaker History of cholecystectomy Social History Social History Smoking status: Never smoker Alcohol intake: never Substance use: never Substance use type: does not use Do You Feel Safe in your Home?: Yes Lack of Transportation: No Lack of Food: Never True Current Housing: I Have Housing Concerned About Future Housing: YES Difficulty Paying Gas/Electric Bills: No Difficulty Paying for Meds: No Currently Unemployed: No Education: High School Diploma/GED Difficulty w/ Childcare or Family Care: No Living arrangements: with family Gender identity (if verbalized by the patient): Female Spiritual care concerns: No Comments At time of signature, I have reviewed and agree with nursing past medical, surg ical, social and family history unless otherwise noted. Please see nursing chart for further information. There is no relevant family history pertinent to the presenting complaint. Exam Narrative: GENERAL: Well-appearing, well-nourished HEAD: Normocephalic, atraumatic. EYES: PERRLA, EOMI. ? ENT: Mucous membranes pink and moist. ?No rhinorrhea. ?TMs normal bilaterally. ? NECK: Normal AROM. ?Supple. ?No lymphadenopathy. CHEST: ?No respiratory distress. Clear to auscultation. HEART: Regular rate and rhythm. No murmur appreciated. Normal peripheral pulses. ABDOMEN: Soft, nontender, nondistended, normal active bowel sounds. MUSCULOSKELETAL: ?No bony tenderness. Right sided paraspinal CVA tenderness with palpation. EXTREMITIES: Normal range of motion. No edema. SKIN: Warm, dry, no rash. Capillary refill normal. ?Normal skin turgor. NEURO:No focal deficits. Alert and oriented x3. ?Finger to nose intact bilaterally. EOMs intact without nystagmus. No facial droop/asymmetry noted bilaterally. Grimace intact. Intact sensation in face. Hearing intact bilaterally. Shoulder shrug intact. Strength 5/5 bilateral upper extremities. Strength 5/5 bilateral lower extremities. Reflexes 2+ patellar. Heel to marr intact bilaterally. Ambulatory exam with a normal based, steady gait. PSYCH: ?Normal affect. ?No signs of depression or anxiety. Course Course Level of Care: Express Care Visit Vital Signs Vital signs: Vital Signs Temperature 97 F L 03/11/25 10:31 Pulse Rate 71 03/11/25 10:31 Respiratory Rate 16 03/11/25 10:31 Blood Pressure 134/89 03/11/25 10:31 Pulse Oximetry 100 03/11/25 10:31 Temperature 97 F L 03/11/25 10:31 Pulse Rate 71 03/11/25 10:31 Respiratory Rate 16 03/11/25 10:31 Blood Pressure 134/89 03/11/25 10:31 Pulse Oximetry 100 03/11/25 10:31 Reviewed. Transfer Transfered to: [facility] comments: Pt is agreeable to transfer. Requests transfer to [facility] via private vehicle. Risks of transportation reviewed with pt including injury, worsening of condition and . v/u. Pt will be driving; Report called to hospital, spoke with Melida Esteban accepting PA. Pt is in stable condition at time of transfer. Advised to remain NPO and go directly to the hospital. MDM - Dizziness MDM Narrative Medical decision making narrative: Discussed physical exam findings. EKG. Blood glucose tested. UA. Advised supportive measures and signs/symptoms to go to the ER. Pt is appropriate for outpatient treatment and follow up. Differential Diagnosis Differential diagnosis: Likely benign paroxysmal positional vertigo, orthostatic hypotension and other (nephrolithiasis, electrolyte imbalance) Lab Data Attestation: I reviewed the patient's lab results. Labs: Lab Results 03/11/25 Range/Units 10:47 POC Capillary Glucose 132 H (65-105) mg/dl Critical Care Time Critical Care Time Critical Care Time: No Discharge Plan Discharge Clinical Impression: Dizziness Patient Disposition: Acute Care Hospital Condition: Stable Patient Language: Macedonian Prescriptions: No Action (DME) [facility] MDI Spacer Spacer See Rx Instructions .ROUTE .MEDSUPPLY Qty: 1 0RF Rx Instructions: As directed metoprolol tartrate 50 mg tablet 50 mg PO Q12H gabapentin 300 mg capsule 300 mg PO DAILY bupropion HCl 100 mg tablet 100 mg PO BID acetaminophen 500 mg tablet 1,000 mg PO TID PRN (Reason: chanda) 7 Days Qty: 42 0RF duloxetine 60 mg Capsule,Delayed Release(Dr/Ec) 60 mg PO DAILY hydrochlorothiazide 25 mg tablet 25 mg PO DAILY Follow-up/Referrals: PHYSICIAN,LIBRARY ASSOCIATE [Primary Care Provider] - Time of Disposition: 11:02
[2025-03-11 10:50] LABS: Glucose Point of Care 132 mg/dl (65-105)
--- NOTE | 2025-03-11 10:53 | ECG_ITS ---
Test Date: 2025-03-11 10:42:37 Measurements Intervals [place] Rate: 62 P: 64 TN: 178 QRS: 48 QRSD: 88 T: 53 QT: 444 QTc: 454 Interpretive Statements SINUS RHYTHM POSSIBLE LEFT ATRIAL ENLARGEMENT [-0.1mV P WAVE IN V1/V2] LOW QRS VOLTAGE IN PRECORDIAL LEADS [QRS DEFLECTION < 1.0 mV IN CHEST LEADS] Compared to ECG 01/06/2025 15:15:19 NO SIGNIFICANT CHANGES Electronically Signed On 03-11-2025 15:08:40 CDT by Petros Mota M.D.
[2025-03-11 10:59] LABS: EDUAAPPEAR Clear; EDUABILI 1+ (Negative); EDUABLOOD Negative (Negative); EDUACOLOR1 Yellow; EDUAGLUCOSE Negative (Negative); EDUAKETONE 1+ (Negative); EDUALEUKO Negative (Negative); EDUANITRATE Negative (Negative); EDUAPROTEIN 1+ (Negative); EDUASPGRAVITY 1.025
== END 2025-03-11 11:02 | disposition short-term general hospital (02) ==
DX: R42 Dizziness and giddiness (principal); I10 Essential (primary) hypertension; F41.9 Anxiety disorder, unspecified; Z95.0 Presence of cardiac pacemaker
CPT/HCPCS: 81003; 82948; 93005; 99213; G0463

== ENCOUNTER 2025-03-11 11:12 | Emergency (ER) | payer BC, SELFPAY ==
--- NOTE | ~2025-03-11 | XR_ITS ---
EXAMINATION: XR chest 2V 03/11/2025 14:29 INDICATION: Syncope PROCEDURE: 2 view chest COMPARISON: Comparison to multiple prior studies sequentially, with oldest reviewed study dated 01/29. FINDINGS: The lungs are clear. The cardiomediastinal silhouette is within normal limits. There are no pleural effusions. There is no pneumothorax suspected. There is calcified granuloma in the lingu la. Pacemaker leads are stable. IMPRESSION: 1: NO ACUTE CARDIOPULMONARY DISEASE. Reviewed, dictated and finalized at location A.
--- OUTSIDE RECORDS SUMMARY | 2025-03-11 11:20 | XMS_ITS | Referral Summary ---
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 Stent Venous Wall [id number] - [id number] Implanted:Qty: 1 on 08/21/2023 by Finn Johnson MD at [facility] [employer] 07/29/2024 [id number] / / [id number] [employer] Stent Venous Wall [id number] - [id number] Implanted:Qty: 1 on 08/21/2023 by Finn Johnson MD at [facility] [employer] Crist[employer]bal 10/22/2024 [id number] / / [id number] Insurance [employer] [place] [employer] [place] Advance Directives For more information, please contact: [phone] * Full Code (Latest Code Status on File) Date Activated Date Inactivated Comments 08/21/2023 2:40 PM 08/21/2023 8:52 PM * Full Code Date Activated Date Inactivated Comments 08/17/2019 9:45 AM 08/17/2019 2:34 PM Care Teams Residential Sales Executive Relationship Specialty [place] [address] [address] [address] PCP - General Family Medicine 03/23/24 [place] [address] [address] Consulting Physician Cardiology 08/17/19
--- OUTSIDE RECORDS SUMMARY | 2025-03-11 11:20 | XMS_ITS | Clinical Summary ---
Author Organization [facility] Address [address] [place] [address] Care Team Providers Care Point Of Care Technician Name Role Phone Venkatesh Carbone MD Unavailable [phone] Lupe Grey NP Primary Care Provider [phone] Allergies Active Allergy Reactions Criticality Noted Date [...] 01/06/2025 2:45 PM CDT Office Visit 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 Gender Identity Not on file Sexual Orientation [...] Vaccine (1 of 2) 2024 Influenza Vaccine Completed 08/23/2024, , 08/17/2019, Additional history exists Medical Devices Implanted Type Area Coloring Room Man Device Identifier Shelf Expiration Date Model / Serial / Lot [employer] Stent Venous Wall [id number] - [id number] Implanted:Qty: 1 on 08/21/2023 by Finn Johnson MD at [facility] [employer] 07/29/2024 [id number] / / [id number] [employer]bal Stent Venous Wall [id number] - [id number] Implanted:Qty: 1 on 08/21/2023 by Finn Johnson MD at [facility] [employer] 10/22/2024 [id number] / / [id number] Insurance [employer] Advance Directives For more information, please contact: [phone] * Full Code (Latest Code Status on File) Date Activated Date Inactivated Comments 08/21/2023 2:40 PM 08/21/2023 8:52 PM * Full Code Date Activated Date Inactivated Comments 08/17/2019 9:45 AM 08/17/2019 2:34 PM Care Teams Point Of Care Technician Relationship Specialty [place] [address] [address] PCP - General Family Medicine 03/23/24 [place] [address] [address] Consulting Physician Cardiology 08/17/19
--- OUTSIDE RECORDS SUMMARY | 2025-03-11 11:21 | XMS_ITS | Data Portability ---
Author Organization [facility] [employer], Main Office Address [address] [place] [address] Care Team Providers Care Brand Representative Name Role Phone LUPE CHASE Primary Care Provider LUPE CHASE Referring Provider Assessment Encounter Date Assessment Date Assessment LastModified by Organization Details LastModified Time 07/15/2024 07/15/2024 Time spent with patient included: [...] Organization Details Last Modified Time Details Appointments Follow Up 15 2024 02:45P M Aravind rankin MD Not available Not available Not available Lab lipid panel, serum 2024 025 [facility] (Lab), [address] [place], [address], 01/21/2025 13:12:12 CBC w/ auto diff 2024 025 [facility] (Lab), [address] [place], [address], 01/21/2025 13:07:04 TSH, serum or plasma 2024 025 [facility] (Lab), [address] [place], [address], 01/21/2025 13:40:35 CMP, serum or plasma 2024 025 [facility] (Lab), [address] [place], [address], 01/21/2025 13:12:22 vitamin D, 25-hydrox y, total, serum 2024 025 [email or web address] [facility] (Lab), [address] [place], [address], 02/03/2025 09:38:07 urinalysi s complete, reflex culture [address] (Lab), [address] [place], [address], 03/08/2025 12:47:43 BNP (B-type natriuret ic peptide), serum or plasma 2023 024 [facility] (Lab), [address] [place], [address], 07/15/2024 14:55:13 ige, total, serum 2023 024 [email or web address] 2 [facility] (Lab), [address] [place], [address], 09/08/2024 15:17:46 tb (M tuberculo sis), ifn-gamma helen, blood 2023 024 [email or web address] 2 [facility] (Lab), [address] [place], [address], 09/08/2024 15:17:46 eosinophi l count, manual, blood (OBS) [email or web address] [place] [address] (Lab), [address] [place], [address], 09/08/2024 15:17:46 [address] s 1+2+3+4, serum 2023 024 [email or web address] 2 [facility] (Lab), [address] [place], [address], 09/08/2024 15:17:46 respirato ry allergen panel, [facility] A, serum 2023 024 [facility] (Lab), [address] [place], [address], 07/24/2024 11:56:07 respirato ry allergen panel - [facility] b 2023 [email or web address] [place] [address] (Lab), [address] [place], [address], 09/08/2024 15:17:46 alpha-1-a ntitrypsi n (aat) phenotype , serum 2023 024 2 [facility] (Lab), [address] [place], [address], 09/08/2024 15:17:46 Referral neurologi nayla surgeon referral - Please call patient to schedule an appointme nt. Thank you. 2024 025 ESTELITA Veronica MD, [address] [facility], [address], [place], [address], 01/24/2025 12:10:36 gynecolog ist referral - Please call patient to schedule an appointme nt. Thank you. 2024 025 IRAIDA Thrasher DO, [address] [facility] [address], [place], [address], 01/20/2025 11:21:02 hepatolog ist referral - Please call patient to schedule an appointme nt. Thank you. 2024 025 ESTELITA Menon MD ([facility]), [address] [place], [address], 01/24/2025 12:10:36 pulmonolo gist referral - Please call patient to schedule an appointme nt. Thank you. 2024 025 ESTELITA Lal BOX ESTIMATOR-C, [address] [facility], [facility] [address], [address], 01/24/2025 13:55:16 cardiolog ist referral - Please call patient to schedule an appointme nt. Thank you. 2024 025 [place], [address] [facility], [address], [address], 01/24/2025 12:25:12 psychiatr ist referral - Please call patient to schedule an appointme nt. Thank you. 2024 025 IRAIDA Burks CRANKSHAFT STRAIGHTENER, [address] [facility], [facility] [address], [place], [address], 01/25/2025 17:21:56 pulmonolo gist referral - Please call patient to schedule an appointme nt. Thank you [email or web address] [facility], [address] [facility], [facility] [address], [place], [address], 01/26/2025 17:30:35 rheumatol ogist referral - Please call patient to schedule. 2023 024 [email or web address] [facility] (Rheumatology ), [address] [facility], , [place], [address], 12/16/2024 10:24:53 Procedures None recorded. Surgeries None recorded. Imaging MAMMO, screening , digital, bilateral 2024 025 [email or web address] [facility] ([facility]), [address] [place], [address], 01/19/2025 16:06:22 XR, cervical spine, 2 or 3 view 2024 025 [facility] ([facility] Sched[facility]), [address] [place], [address], 01/25/2025 12:21:07 bone density - Please call patient to schedule. 2024 025 [facility] ([facility] Sched[facility]), [address] [place], [address], 02/01/2025 15:11:20 CT, sinuses, w/o contrast [email or web address] (One Call Scheduling), [address] [place], [address], 01/24/2025 13:48:13 Medication Orders meloxicam 7.5 mg tablet 2024 025 [facility]04596, [address] [place], [id number], 01/19/2025 15:51:53 Zyrtec 10 mg tablet 2024 025 [facility] #04424, [address] [place], [id number], 01/19/2025 15:51:53 triamcino lone acetonide 0.1 % topical cream [address] [facility]39802, [address] [place], [id number], 01/19/2025 15:14:11 oxybutyni n chloride 5 mg tablet [address] [facility]63265, [address] [place], [id number], 01/19/2025 15:13:47 Flovent HFA 110 mcg/actua tion aerosol inhaler 2023 024 IRAIDA [facility] #90813, [address], [place], [place], [id number], 07/15/2024 10:15:25 prednison e 20 mg tablet 2023 024 [facility] #96986, [address], [place], [place], [id number], 01/19/2025 15:13:58 Medrol (Kobe) 4 mg tablets in a dose pack [email or web address] [facility] #02310, [address], [place], [place], [id number], 08/23/2024 16:21:42 azithromy nidhi 250 mg tablet 2023 024 [email or web address] #07565, [address], [place], [place], [id number], 08/23/2024 16:21:22 Patient TargetsNo targets recorded. Patient Instructions Encounter Date Encounter Id Patient Instructions Last Modified By Organization Details Last Modified Time 06/16/2024 [id number] Follow up in July Prescriptions sent to pharmacy Recommend: Pneumococcal vaccine Tetanus vaccine Shingles vaccine Not available 06/16/2024 08:42:44 08/23/2024 [id number] Follow up in 4 months Prescription sent to pharmacy Obtain labs Tests: Referral: Rheumatology referral-rash and possible rheumatoid arthritis Recommend: Tetanus vaccine Shingles vaccine Not available 08/23/2024 16:33:31 Reason for Referral Conference Coordinator Referral for Butterfly rash Please call patient to schedule. Referring Physician: Lupe Chase, Internal Medicine, Encounter Date: 08/23/2024 Social Services Technician Referral for A sthma Please call patient to schedule an appointment. Thank you Referring Physician: Aravind Hillman, Internal Medicine, Encounter Date: 01/19/2025 Social Services Technician Referral for S leep apnea Please call patient to schedule an appointment. Thank you. Referring Physician: Aravind Hillman Internal Medicine, Encounter Date: 01/19/2025 Psychiatrist Referral for Mi xed anxiety and depressive disorder Please call patient to schedule an appointment. Thank you. Referring Physician: Aravind Hillamn Internal Medicine, Encounter Date: 01/19/2025 Neurological Surgeon Referra l for Cervical radiculopathy Please call patient to schedule an appointment. Thank you. Referring Physician: Aravind Hillman Internal Medicine, Encounter Date: 01/19/2025 Replacer Referral for Me tabolic dysfunction-associated steatohepatitis Please call patient to schedule an appointment. Thank you. Referring Physician: Aravind Hillman Internal Medicine, Encounter Date: 01/19/2025 Automatic Transmission Mechanic Referral for Co ronary arteriosclerosis Please call patient to schedule an appointment. Thank you. Referring Physician: Aravind Hillman Internal Medicine, Encounter Date: 01/19/2025 Weatherization Technician Referral for Gy necologic examination Please call patient to schedule an appointment. Thank you. Referring Physician: Aravind Hillman Internal Medicine, Encounter Date: 01/19/2025 Results Created Date Observation Date Name Description Value Unit Range Abnormal Flag Note LastModifiedBy Organization Detail LastModifiedTime 06/23/20 24 06/17/2024 XR, foot No observ [...] Available 2023 09:22:35 07/19/20 24 06/13/2024 elect mckennaar diogr am No observ ation record ed. BARCODE Not Available 2023 09:22:36 07/19/2005/26/2024 CT, chest , w/o contr ast No observ ation record ed. BARCODE Not Available 2023 09:45:25 09/05/20 24 09/04/2024 XR, shoul mario No observ ation record ed. [email or web address] [facility] [address] [place] [address] , [place], [address], 09/06/2024 08:04:20 12/25/19 25 12/24/2024 XR, kidne y + urete r + bladd er No observ ation record ed. [email or web address] [address] , [place], [address], 12/24/2024 16:00:58 01/07/20 25 01/06/2025 XR, chest , 2 view No observ ation record ed. [place] [address], [place], [address], 01/12/2025 09:03:24 01/07/20 25 01/06/2025 CT, angio gram, chest , w/ contr ast No observ ation record ed. [place] [address], [place], [address], 01/12/2025 09:10:04 01/26/20 25 01/25/2025 XR, cervi nayla spine , 2 or 3 view [facility] [address] [facility] [place] [address] Patien t Name: REMEDIOS LIPSCOMB ion #: [id number] Sex: F : 1974 3 Dictat ed By: Hao Bar e Attend ing Physic rachel: TENZIN HEART Orderi ng Physic rachel: TENZIN EHART Exam Date: 2024 10:44 AM Exam Name: XR C SPINE 3V Admitt ing Diagno sis(es ): EXAM: XR C SPINE 3V HISTOR Y: cervic al radicu lopath y 49-yea r-old female with neck pain, no recent injury , histor y of cervic al spine surger y, numbne ss and tingli ng of the bilate ral arms. COMPAR JULIETH: None TECHNI QUE: AP, latera l, swimme r's, and odonto id views of the cervic al spine were perfor med. FINDIN GS: No cervic al fractu re, listhe sis, scolio sis, or prever tebral soft tissue edema are identi fied. There are postop erativ e change s of ACDF C5-C7, withou t eviden ce of hardwa re failur e or compli cation . There is advanc ed degene rative disc diseas e and facet arthro edgar. The patien t is edentu lous. There is a left chest pacema ker, not fully imaged here. IMPRES NOAH: 1. No fractu re of the cervic al spine. 2. Advanc ed cervic al degene rative disc diseas e and facet arthro edgar. Given the patien t's histor y of upper extrem ity radicu lar sympto ms, recomm end follow -up outpat ient noncon trast CT scan of the cervic al spine on a noneme rgent outpat ient basis for better charac teriza tion of the spinal canal dimens ions and bilate ral neural forami na. The patien t is likely not compat ible for MRI second moi to a left chest pacema ker. Page 1 [facility] [address] [place] [address] [address] Patien t Name: REMEDIOS LIPSCOMB Access ion #: [id number] Sex: F : 1974 3 Dictat ed By: Hao lynn Attend ing Physic rachel: ROSEY HERRERA Physic rachel: MERCEDES HEARTTDAVIDSON A Exam Date: 2024 10:44 AM Exam Name: XR C SPINE 3V Admitt ing Diagno sis(es ): Electr onical ly Signed by: Hao lynn at 2024 11:18: 34 AM Page 2 [email or web address] [facility] (Imaging) [address] [place], [address], 01/25/2025 15:13:28 01/26/20 25 01/25/2025 XR, cervi nayla spine , 2 or 3 view No observ ation record ed. [facility] ([facility] Sched[facility]) [address] [place], [address], 01/25/2025 18:19:30 02/02/20 25 02/01/2025 scree perico breas t minh, bilat [facility] [address] [place] [address] [address] Patien t Name: MARTA REMEDIOS Access ion #: [id number] Sex: F : 1974 9 Dictat ed By: Chitra Borrero Attend ing Physic rachel: ROSEY PASTOR MURTDAVIDSON ladd Physic rachel: ROSEY PASTOR MURTUZ A Exam Date: 2024 09:44 AM Exam Name: MG OLVERA BREAST MINH BILAT Admitt ing Diagno sis(es ): PROCED URE: SCREEN ING MAMMOG ANURAG WITH TOMOSY NTHESI S REASON FOR EXAM: screen ing mammog anurag COMPAR JULIETH: SCREEN ING BREAST MINH, BILAT 3D on DOS: 0 TECHNI QUE: Bilate ral CC and MLO views obtain ed. Images were obtain ed using a Digita l Tomosy nthesi s Unit. Standa rd 2D and 3D Tomosy nthesi s images were review ed. This examin ation was analyz ed using Lunit Insigh t DBT/MM G in additi on to a radiol ogist review , an AI softwa re develo ped to enhanc e the effect ivenes s of breast cancer screen ing with mammog shaila. FINDIN GS: BREAST COMPOS ITION: B - There are scatte red areas of fibrog landul ar densit y. In the right breast , no asymme trical parenc hymal patter n, renny ectura l distor tion, pleomo rphic microc alcifi cation s or masses . In the left breast , no asymme trical parenc hymal patter n, renny ectura l distor tion, pleomo rphic microc alcifi cation s or masses . IMPRES NOAH: No findin gs of malign tarun. RECOMM ENDATI ON: Recomm end annual mammog anruag. ASSESS MENT: Page 1 [facility] [place] [address] Patien t Name: REMEDIOS LIPSCOMB Access ion #: [id number] Sex: F : 1974 9 Dictat ed By: Chitra Borrero Attend ing Physic rachel: ROSEY HERRERA [facility] Physic rachel: TENZIN HEART Exam Date: 2024 09:44 AM Exam Name: MG OLVERA BREAST MINH BILAT Admitt ing Diagno sis(es ): BIRADS : 1 - Negati ve Electr onical ly Signed by: Chitra Borrero at 2024 10:26: 32 AM Page 2 [email or web address] [facility] (Imaging) [address] [place], [address], 02/03/2025 09:57:33 02/02/20 25 02/01/2025 MAMMO , scree perico, digit al, bilat eral No observ ation record ed. [email or web address] [facility] [address] [place], [address], 02/02/2025 19:08:31 02/02/20 25 02/01/2025 DEXA, axial skele ton [facility] [address] [place] [address] Patien t Name: REMEDIOS LIPSCOMB Access ion #: [id number] Sex: F : 1974 9 Locati on: RAD Attend ing Physic rachel: TENZIN HEART Orderi ng Physic rachel: TENZIN HEART Exam Date: 025 9:20 AM Exam Name: XR DEXA-H IPS PELVIS SPINE Admitt ing Diagno sis(es ): RADIOL OGY REPORT - FINAL EXAM: XR DEXA-H IPS PELVIS SPINE HISTOR Y: postme nopaus al state 49-yea r-old female with osteop orosis screen ing. COMPAR JULIETH: None availa ble. TECHNI QUE: Dual energy x-ray of absorp tion examin ation of the bilate ral hips and lumbar spine was perfor med in AP projec tion. FINDIN GS: Lumbar Spine (L1-L4 ): The mean bone minera l densit y is 1.609 g/cm2 hydrox yapati te, correl ating with a T-scor e of 3.3. Bilate ral hips: The mean bone minera l densit y is 1.218 g/cm2 calciu m hydrox yapati te, correl ating with a T-scor e of 1.7. Page 1 of 2 [facility] [place] Patien t Name: REMEDIOS LIPSCOMB Access ion #: [id number] Sex: F : 1974 9 Exam Date: 9:20 AM Exam Name: XR DEXA-H IPS PELVIS SPINE Admitt ing Diagno sis(es ): Risk of major osteop orotic fractu re 3.5%; risk of hip fractu re 0.0%. IMPRES NOAH: 1. The patien t's lumbar spine T-scor e is consis tent with normal bone minera l densit y. 2. The patien t's bilate ral hip T-scor e is consis tent with normal bone minera l densit y. Accord ing to the World Health Organi zation , T-scor e values greate r than -1.0 are normal , values betwee n -1.0 and -2.5 are catego rized as osteop enia, T-scor e of -2.5 or more are catego rized as osteop orosis . Create d and electr onical ly signed by: Hao lynn MD Signed Date: 2:06 PM (CT) Dictat ed by: Hao lynn MD DD: 2:06 PM (CT) DT: 2:06 PM (CT) Page 2 of 2 [email or web address] [facility] (Imaging) [address] [place], [address], 02/03/2025 09:57:33 02/02/2002/01/2025 bone densi ty No observ ation record ed. [email or web address] [facility] [address] [place], [address], 02/02/2025 19:08:31 02/03/20 25 02/02/2025 CT, cervi nayla spine , w/o contr ast [facility] [address] [place] [address] [phone] Patien t Name: REMEDIOS LIPSCOMB Access ion #: [id number] Sex: F : 1974 8 Locati on: RAD Attend ing Physic rachel: TENZIN HEART Amy Orderi Physic rachel: TENZIN HEART Amy Exam Date: 9:21 AM Exam Name: CT C SPINE WO Admitt ing Diagno sis(es ): RADIOL OGY REPORT - FINAL EXAM: CT C SPINE WO HISTOR Y: chroni c neck pain 49-yea r-old female with neck pain, limite d range of motion , bilate ral upper extrem ity radicu lar sympto ms, cervic al spine fusion 2 years ago, no recent injury . COMPAR JULIETH: None availa ble. TECHNI QUE: Noncon trast axial CT images of the cervic al spine were perfor med. Sagitt al and garcia l reform atted images were obtain ed. This CT exam was perfor med using one or more of the follow ing dose reduct ion techni ques: Automa yosef exposu re contro l, adjust ment of the mA and/or kv accord ing to patien t size, or the use of iterat mattie recons tructi on techni ques. Radiat ion Dose Inform ation: CT Dose: CTDI volume is 18.4 mGy. Dose-l ength produc t is 562.4 mGy*cm . Page 1 of 3 [facility] Name: REMEDIOS LIPSCOMB ion #: [id number] Sex: F : 1974 8 Exam Date: 025 9:21 AM Exam Name: CT C SPINE WO Admitt ing Diagno sis(es ): FINDIN GS: See below. IMPRES NOAH: 1. No fractu re of the cervic al spine. 2. Postop erativ e change s of ACDF C5-C7 withou t eviden ce of hardwa re failur e or compli cation . 3. Advanc ed cervic al degene rative disc diseas e and facet arthro edgar with modera te spinal canal stenos is at C5-C6 and C6-C7; mild to modera te spinal canal stenos is at C4-C5. Recomm end follow -up noncon trast MRI of the cervic al spine for better charac teriza tion if the patien t is MRI compat ible, as there is likely mass effect on the cervic al spinal cord at multip le levels . The patien t may not be MRI compat ible as there is a partia lly visual ized left chest pacema ker. 4. Multil evel signif icant neural forami nal stenos is includ ing C2-C3 on the right; C3-C4 bilate rally; C5-C6 bilate rally; C6-C7 on the left. These findin gs may corres pond to upper extrem ity radicu lar sympto ms in the right C3, bilate ral C4, bilate ral C6, and left C7 nerve root distri bution s. This would also be better charac terize d with noncon trast MRI. 5. The patien t is comple tely edentu lous. 6. Mild right maxill moi sinus diseas e. Create d and electr onical ly signed by: Hao lynn MD Signed Date: 4:06 PM (CT) Dictat ed by: Hao lynn MD DD: 4:06 PM (CT) Page 2 of 3 [facility] Patikevin Name: REMEDISO LIPSCOMB ion #: [id number] Sex: F : 1974 8 Exam Date: 9:21 AM Exam Name: CT C SPINE WO Admitt ing Diagno sis(es ): DT: 4:06 PM (CT) Page 3 of [email or web address] [place] [address] (Imaging) [address] [place], [address], 02/03/2025 09:57:34 02/03/20 25 02/02/2025 imagi ng/di agnos tic resul t No observ ation record ed. [facility] [address] [place], [address], 02/02/2025 17:11:23 03/01/20 25 03/01/2025 imagi ng/di agnos tic resul t No observ ation record ed. [place] [address] [facility] [address], [place], [address], 03/01/2025 15:14:03 Result Notes None recorded. Problems Name Problem SNOMED Code Status Onset Date Resolution Date Notes Provider Name and Address Organization Details Recorded Time Metatarsa lgia 19421146 Active Lupe Chase APRN [address], [address], [place], [address] , [employer] 4 17:29:30 Leukocyto sis 517099249 Active 2021 Not Available [facility] 3 07:36:52 Celluliti s of skin 026907581 Completed 202105/07/2024 Lupe Chase APRN [address], [address], [place], [address] , [employer] 4 17:29:48 Acute sinusitis 68088428 Completed 202105/07/2024 Lupe Chase APRN [address], [address], [place], [address] , [employer] 4 17:29:44 Backache 645316873 Completed Not Available [facility] 3 01:09:00 Increased frequency of urination 473957741 Completed Not Available [facility] 3 01:09:00 Pain in throat 376858355 Completed 202105/07/2024 Lupe Chase APRN [address], [address], [place], [address] , [employer] 4 17:30:30 Asthma 092141987 Active 2021 Lupe Chase APRN [address], [address], [place], [address] , [employer] 4 14:10:27 Abdominal pain 26672940 Completed Not Available [facility] 3 01:09:01 Increased blood pressure 20979761 Completed 05/07/[address], [place], [address] , [employer] 4 17:29:55 Dysmenorr hea 038305536 Completed Not Available [facility] 3 01:09:01 Sleep pattern disturban ce 80435071 Completed Not Available [facility] 3 01:09:01 Eruption 777775647 Completed [address], [place], [address] , [employer] 4 17:30:51 Chronic low back pain 701213307 Active [address], [place], [address] , [employer] 4 14:10:37 Booth's neuroma of right foot 13570836796 9108 Active 2019 Not Available [facility] 3 07:36:52 Rib pain 614233207 Completed Not Available [facility] 3 01:09:02 Excessive growth of facial hair 207365309 Active [address]ICK [address], [place], [address] , [employer] 4 17:31:01 Right lower quadrant pain 936859430 Completed Not Available [facility] 3 01:09:02 Pain in pelvis 86317165 Completed Not Available [facility] 3 01:09:02 Abscess of skin and/or subcutane ous tissue 95610761 Completed 202205/07/[address], [place], [address] , [employer] [place] 4 17:30:54 Sinusitis 28329802 Completed 05/07/2024 Aravind carrillo MD [address], [address], [place], [address] , [employer] [facility] 5 15:48:57 Migraine 07123901 Active Lupe Chase APRN [address], [address], [place], [address] , [place] [facility] [employer] [facility] 4 14:11:04 Menorrhag ia 152222461 Completed RADHA Milan [address], [address], [place], [address] , [employer] [facility] [employer] [facility] [employer] 3 20:02:43 Multiple infected superfici al wounds 152515409 Completed 202105/07/2024 Lupe Chase APRN [address], [address], [place], [address] , [employer] [facility] [employer] [facility] [employer] [place] 4 17:30:36 Sinus tarsi syndrome 795764001 Active Lupe Chase APRN [address], [address], [place], [address] , [place] [employer] [employer] 4 17:29:15 Ureteric stone of lower third of ureter 394437866 Completed Not Available [facility] 3 01:09:03 Foot pain 72305521 Completed Not Available [facility] 3 01:09:03 Anxiety 51032947 Active Not Available [facility] 3 07:36:52 Dysuria 07658916 Completed Not Available [facility] 3 01:09:04 Peroneal tendiniti s 53118314 Completed 05/07/2024 Lupe Chase APRN [address], [address], [place], [address] , [employer] [facility] 4 17:30:23 Upper respirato ry infection 74981749 Completed 202205/07/2024 Lupe Chase APRN [address], [address], [place], [address] , [employer] 4 16:32:12 Hyperlipi demia 90811905 Active 2021 Lupe Chase APRN [address], [address], [place] [place], [address] , [employer] 4 14:10:43 Dyspnea on exertion 35690728 Active 2022 Lupe Chase APRN [address], [address], [place], [address] , [employer] 4 17:31:00 Verruca plantaris 63991756 Active 2018 Not Available [facility] 3 07:36:52 Capsuliti s 9186359 Active Not Available [facility] 3 07:36:52 Rhinitis 54489046 Completed Not Available [facility] 3 01:09:05 Primary osteoarth ritis of midfoot 912816702 Active 2018 Lupe Chase APRN [address], [address], [place], [address] , [employer] 4 17:30:19 Liver enzymes level above reference range 619921134 Completed 202105/07/2024 Lupe Chase APRN [address], [address], [place], [address] , [facility] 4 17:30:47 Prediabet es 171750629 Active [address], [place], [address] , [employer] 4 14:11:19 Exposure to SARS-CoV- 2 Completed Not Available [facility] 3 01:09:06 Fatigue 57311699 Active Lupe Chase APRN [address], [address], [place], [address] , [employer] 4 14:10:49 Dystrophi a unguium 89180164 Active 2020 Lupe Chase APRN [address], [address], [place], [address] , [place] [facility] 4 14:10:41 Pain in limb 95063185 Completed Not Available [facility] 3 01:09:07 Skin lesion 37933849 Completed Not Available [facility] 3 01:09:07 Kidney stone 71477515 Completed Lupe Chase APRN [address], [address], [place], [address] , [place] [facility] 4 17:31:06 Pain of multiple joints 09666113 Completed 202205/07/2024 Lupe Chase APRN [address], [address], [place], [address] , [place] [facility] 4 17:30:33 Sleep apnea 54260309 Active 2022 Lupe Chase APRN [address], [address], [place], [address] , [place] [facility] 4 14:11:24 Chronic abdominal pain 504867178 Active 2022 Lupe Chase APRN [address], [address], [place], [address] , [place] [facility] 4 17:29:51 Mixed anxiety and depressiv e disorder 638602545 Active 2022 Lupe Chase APRN [address], [address], [place], [address] , [place] [facility] 4 14:10:57 Cervical radiculop athy 16223879 Active 2022 Lupe Chase APRN [address], [place], [address] , [place] [facility] 4 14:10:32 Metabolic dysfuncti on-associ ated steatohep atitis 625554328 Active 2022 Lupe Chase APRN [address], [address], [place], [address] , [employer] [facility] 4 14:11:07 Obesity 368262865 Active 2022 Lupe Chase APRN [address], [address], [place], [address] , [employer] [facility] [employer] [facility] 4 14:11:15 Menorrhag ia 054032703 Active 2022 Not Available [facility] 3 07:36:52 Eruption 177728434 Completed 202205/07/2024 Lupe Chase APRN [address], [address], [place], [address] , [employer] [facility] [employer] [facility] 4 17:30:51 Pain of toe of right foot 53166045080 9101 Completed 202205/07/[address], [place], [address] , [employer] [facility] 4 17:30:26 Kidney stone 66654729 Completed 202205/07/[address], [place], [address] , [employer] [facility] 4 17:31:05 Urinary incontine nce 015124642 Active [address], [place], [address] , [employer] [facility] [employer] [facility] 4 14:11:33 Essential hypertens ion 00841550 Active [address], [place], [address] , [employer] [facility] [employer] [facility] 4 17:29:01 Mass of upper limb 123914650 Active [address], [place], [address] , [employer] [facility] 4 17:14:15 Infection of big toe 268813639 Completed 202305/07/2024 Lupe Chase APRN [address], [address], [place], [address] , [facility] 4 17:29:58 Pain radiating to thoracic region left side 751590588 Completed 202305/07/2024 Lupe Chase APRN [address], [address], [place], [address] , [employer] [facility] [employer] [facility] 4 17:29:34 Nodule of lung 027598028 Active 2023 Lupe Chase APRN [address], [place], [address] , [employer] [facility] [employer] [facility] 4 10:27:29 Ingrowing nail of toe of right foot 01145375084 358416 Completed 202305/07/[address], [place], [address] , [employer] [facility] [employer] [facility] 4 17:30:02 Dyspnea 744833110 Completed 202305/07/[address], [place], [address] , [employer] [facility] [employer] [facility] 4 17:29:40 Cardiac pacemaker in situ 744352933 Active [address], [place], [address] , [employer] - [facility] [employer] [facility] 4 12:06:50 Arthritis 0149994 Active [address], [place], [address] , [employer] [facility] 4 11:17:36 Upper respirato ry infection 73985776 Active [address], [place], [address] , [place] [facility] 4 16:32:12 Pain in right foot 31984505335 9107 Active Lupe Chase APRN [address], [address], [place], [address] , [place] [facility] 4 16:46:00 Acute urticaria 567554294 Active 2023 Mariola Lal NP [address], [facility] [address], [place], [address] , [place] [facility] 4 10:12:48 Mitral valve regurgita tion 70277880 Active 2023 Lupe Chase APRN [address], [address] [address], [place], [address] , [place] [facility] 4 20:25:03 Sick sinus syndrome 80750195 Active 2023 Lupe Chase APRN [address], [address] [address], [place], [address] , [place] [facility] 4 20:25:36 Butterfly rash 24504573 Active 2023 Lupe Chase APRN [address], [address] [address], [place], [address] , [place] [facility] 4 16:26:12 Coronary arteriosc lerosis 79845644 Active 2024 Aravind carrillo MD [address], [address], [address] , [place] [facility] 5 09:22:46 Vitamin D deficienc y 03648161 Active 2024 Aravind carrillo MD [address], [facility] [address], [place], [address] , [place] [facility] 5 15:30:33 Pain in face 16197819 Active 2024 Aravind carrillo MD [address], [address], [place], [address] , [facility] 5 15:31:48 Sinusitis 60167749 Active 2024 Aravind carrillo MD [address], [address], [place], [address] , [facility] 5 15:48:57 Recurrent sinusitis 531938802 Active 2024 Pallavi Pulido RMA null, [place] [facility] 5 14:01:33 Chronic neck pain 41077256829 07 Active 2024 Pallavi Pulido RMA null, [place] [facility] 5 18:19:47 Hypokalem ia 87034830 Active 2024 Pallavi Pulido RMA null, [place] [facility] 5 15:34:04 Hyperglyc emia 05694232 Active 2024 Pallavi Pulido RMA null, [place] [facility] 5 15:34:55 Liver function tests outside reference range 248062997 Active 2024 Pallavi Pulido RMA null, [place] [facility] 5 15:37:21 Notes:Medical History: Anxie ty Migraine headaches COVID [...] Lockwood DPM [address], [address], [place], [address], [facility] 02/12/2024 16:28:22 07/13/20 19 Date of Last Colonoscopy completed Not Available [facility] 12/11/2022 00:55:40 06/02/20 19 Cholecystectomy completed Not Available [facility] 12/11/2022 00:55:45 Pacemaker completed Not Available [facility] 12/11/2022 00:55:45 ligation of bilateral fallopian tubes completed Not Available [facility] 12/11/2022 00:55:45 Hysterectomy completed Tasha Hassan MA [facility] [employer] [facility] 06/16/2024 08:31:26 Neck completed Pallavi Pulido Amy [facility] [employer] 01/19/2025 15:15:40 insertion of stent into femoral artery completed Pallavi Pulido Amy [facility] 01/19/2025 15:16:01 Imaging Results None recorded. Procedure Notes None recorded. Medical Equipment None Reported. Allergies Allergen ID Allergen Name Allergen Category Reaction Reaction Severity Criticality Documentation Date Start Date Code Code System Note Provider Name and Address Organization Details Recorded Time 2386 Product containin g penicilli n (product) medicatio n Not available Not available Not available 12/11/2022 72206 8001 SNOMED Other react ions and sever ities : 'Adve rse react ion to subst ance' . Lupe Chase, RICK [address] [facility], [facility] [address], [place], [address] [place] [address] [facility] 16:45:37 Medications Name Sig Start Date Stop [...] TAKE 1 TABLET BY MOUTH TWICE DAILY 11/11 /2022 completed Not Available Not Available Not Available acetamino phen 325 mg tablet TAKE 2 TABLETS BY MOUTH EVERY 6 HOURS TAKE FOR 7 DAYS AND THEN NEEDED FOR PAIN 02/04 completed Not Available Not Available Not Available prednison e 10 mg tablet Take 6 x 2 days, 5 x 2 days, 4x 2 days, [id number], [id number], [id number] PO in AM active Not Available Not [...] Available Not Available ibuprofen 800 mg tablet TAKE 1 TABLET BY MOUTH THREE TIMES DAILY FOR 7 DAYS NEEDED FOR PAIN active Not Available Not Available No t Available metoprolo l tartrate 100 mg tablet TAKE 1 TABLET BY MOUTH TWICE DAILY 01/19 completed Not Available Not Available Not Available tizanidin e 4 mg tablet Take [...] MOUTH THREE TIMES DAILY NEEDED FOR COUGH 01/19 completed Not Available Not Available Not Available Patanol 0.1 % eye drops Instill [...] TAKE 2 TABLETS BY MOUTH EVERY DAY 01/19 completed Not Available Not Available Not Available Compazine 10 mg tablet take 1 [...] completed Not Available Not Available Not Available Zyrtec 10 mg tablet Take 1 tablet every day by oral route as needed for 90 days. 2024 active Not Available Not Available Not Avai lable metronida zole 500 mg tablet TAKE 1 [...] Available Not Available Not Available acetamino phen 500 mg tablet TAKE 2 TABLETS BY MOUTH THREE TIMES DAILY NEEDED FOR PAIN FOR 7 DAYS 01/19 completed Not Available Not Available Not Available triamcino lone acetonide 0.1 % topical cream APPLY THIN LAYER TOPICALL Y TO THE AFFECTED AREA TWICE DAILY NEEDED 01/19 completed Not Available Not Available Not Available amoxicill in 500 mg tablet TK [...] Not Available Not Available Not Available meloxicam 7.5 mg tablet TAKE 1 TABLET BY MOUTH TWICE DAILY NEEDED FOR 15 DAYS. TAKE WITH FOOD 2024 active Not Available Not Available Not Avai lable oxycodone -acetamin ophen 5 mg-325 mg tablet [...] 1 TABLET BY MOUTH FOUR TIMES DAILY 01/19 completed Not Available Not Available Not Available tamsulosi n 0.4 mg capsule TAKE [...] completed Not Available Not Available Not Available baclofen 10 mg tablet TAKE 1 TABLET BY MOUTH THREE TIMES DAILY 01/19 completed Not Available Not Available [...] Not Available Not Available No t Available docusate sodium 100 mg capsule TAKE ONE CAPSULE BY MOUTH TWICE DAILY 02/04 completed Not Available Not Available Not Available mometason e 50 mcg/actua tion nasal spray [place] 2 sprays every day by intranas al [...] Not Available Not Available No t Available Rolfe 10 mg-325 mg tablet Take 1 tablet every 4-6 hours by oral route as needed. 05/01 completed 1-2 tablets every 4-6 hours as needed Not Available Not Available Not Available norethind luis antonio acetate 5 mg tablet TAKE 2 TABLETS [...] 1 TABLET BY MOUTH TWICE DAILY DIRECTED 01/19 completed Not Available Not Available Not Available ondansetr on 4 mg disintegr ating [...] e 50 mcg/actua tion nasal spray,monse pension [place] 2 sprays every day by intranas al [...] TABLET BY MOUTH TWICE DAILY WITH FOOD 01/19 completed Not Available Not Available Not Available metoprolo l tartrate 5 mg/5 mL [...] Available Not Available Not Available rosuvasta tin 40 mg tablet TAKE 1 TABLET BY MOUTH EVERY DAY active Not Available Not Available No t Available metoprolo l tartrate 25 mg tablet TAKE HALF A TABLET PO BID 03/20 completed Not Available Not Available Not Available nitrofura ntoin monohydra te/macroc rystals 100 mg capsule TAKE 1 CAPSULE BY MOUTH EVERY 12 HOURS WITH A MEAL OR FOOD FOR 5 DAYS 01/19 completed Not Available Not Available Not Available duloxetin e 30 mg capsule,d elayed [...] active Not Available Not Available Not Avai labpat ranolazin e ER 500 mg tablet,ex tended release,1 2 hr TAKE 1 TABLET BY MOUTH TWICE DAILY 01/19 completed Not Available Not Available Not Available aripipraz ole 2 mg tablet 06/12 completed Not Available Not Available Not Available Quasense 0.15 mg-30 mcg (91) tablets,3 month dose pack 05/01 completed Not Available Not Available Not Available Symbicort 160 mcg-4.5 mcg/actua tion HFA aerosol inhaler Inhale 2 puffs twice a day by inhalati on route for 90 days. 02/26 completed Not Available Not Available Not Available cholecalc iferol (vitamin D3) 1,250 mcg (50,000 unit) capsule Take 1 capsule every week by oral route, for 8 weeks; Take with OTC Calcium. active Not Available Not Available No t Available Voltaren 1 % topical gel APPLY [...] completed Not Available Not Available Not Available potassium chloride ER 20 mEq tablet,ex tended release TAKE 2 TABLETS BY MOUTH EVERY DAY FOR 5 DAYS active Not Available Not Available No t Available [employer] Ellipta 100 mcg/actua tion powder [...] (BMI) Body weight Body temperature Heart rate Systolic blood pressure Diastolic blood pressure Provider Name and Address Organization Details Last Updated DateTime 5 180.34 cm 27.9 kg/m2 72512.4 7 g 97.1 [degF] 72 /min 114 mm[Hg] 70 mm[Hg] DENTON López [employer] 5 15:17:47 Date Recorded Body height Body mass index (BMI) Body weight Body temperature Heart rate Oxygen saturation Oxygen saturation in Arterial blood by Pulse oximetry Systolic blood pressure Diastolic blood pressure Provider Name and Address Organization Details Last Updated DateTime 4 180.34 cm 33.9 kg/m2 801118. 95 g 95.2 [degF] 71 /min 98 % 98 % 130 mm[Hg] 92 mm[Hg] Tasha Hassan MA [employer] [facility] [employer] 4 08:29:07 Date Recorded Body height Body mass index (BMI) Body weight Body temperature Heart rate Oxygen saturation Oxygen saturation in Arterial blood by Pulse oximetry Systolic blood pressure Diastolic blood pressure Provider Name and Address Organization Details Last Updated DateTime 4 180.34 cm 33.9 kg/m2 878905. 95 g 98.1 [degF] 61 /min 98 % 98 % 120 mm[Hg] 74 mm[Hg] Tonie Mathews CMA [place] [facility] [employer] 4 09:48:09 Date Recorded Body height Body mass index (BMI) Body weight Body temperature Heart rate Oxygen saturation Oxygen saturation in Arterial blood by Pulse oximetry Systolic blood pressure Diastolic blood pressure Provider Name and Address Organization Details Last Updated DateTime 4 180.34 cm 32.8 kg/m2 147882. 21 g 97.2 [degF] 59 /min 99 % 99 % 118 mm[Hg] 76 mm[Hg] Tasha Hassan MA [place] [facility] [employer] [facility] 4 16:11:12 Social History Question Answer Notes LastModified by Organizat ion Details LastModified Time Tobacco Smoking Status Former Smoker quit 2015 Not Available [facility] 12/11/2022 00:54:06 Do You Have An Advance Directive? No [id number] [id number] Information not available 12/11/2022 What Is Your Level Of Caffeine Consumption? None MIGRATION.17511 [id number] Information not available 12/11/2022 How Much Tobacco Do You Chew? None MIGRATION.21921 75426 Information not available 12/11/2022 In The 14 Days Before Symptom Onset, Have You Had Close Contact With A Laboratory-confi rmed COVID-19 While That Case Was Ill? No MIGRATION.10116 [id number] Information not available 12/11/2022 In The 14 Days Before Symptom Onset, Have You Had Close Contact With A Person Who Is Under Investigation For COVID-19 While That Person Was Ill? No MIGRATION.60972 [id number] Information not available 12/11/2022 What Type Of Diet Are You Following? REGULAR MIGRATION.39660 64940 Information not available 12/11/2022 Which Illicit Or Recreational Drugs Have You Used? None MIGRATION.45091 05764 Information not available 12/11/2022 Have There Been Any Changes To Your Family Or Social Situation? No MIGRATION.15014 50568 Information not available 12/11/2022 What Is The Fluoride Status Of Your Home? Unknown MIGRATION.76312 78561 Information not available 12/11/2022 When Did You Quit Smoking? 1-5yearssincelastc igarette MIGRATION.27878 37424 Information not available 12/11/2022 Are There Any Guns Present In Your Home? No MIGRATION.79225 37207 Information not available 12/11/2022 Do You Use Insect Repellent Routinely? Yes MIGRATION.28053 15482 Information not available 12/11/2022 [facility] M[facility].82658 99756 Information not available 12/11/2022 What Was The Date Of Your Most Recent Tobacco Screening? 01/19/2025 Information not available 01/19/2025 How Many Children Do You Have? 1 Information not available 06/16/2024 Do You Have Any Pets? Yes MIGRATION.42567 74085 Information not available 12/11/2022 What Is Your Relationship Status? Information not available 06/16/2024 Do You Use Your Seat Belt Or Car Seat Routinely? Yes MIGRATION.37744 34001 Information not available 12/11/2022 Do You Have Smoke And Carbon Monoxide Detectors In Your Home? Yes MIGRATION.66473 46524 Information not available 12/11/2022 At What Age Did You Start Smoking Tobacco? 19 Information not available 01/19/2025 Are You Passively Exposed To Smoke? No MIGRATION.57253 25663 Information not available 12/11/2022 Are There Any Smokers In Your House? No MIGRATION.30289 19685 Information not available 12/11/2022 How Much Tobacco Do You Smoke? No 1/2 Ppd Information not available 01/19/2025 Do You Use Sunscreen Routinely? Yes MIGRATION.07386 87215 Information not available 12/11/2022 Have You Recently Traveled Abroad? No MIGRATION.28753 12883 Information not available 12/11/2022 Do You Have Any Dietary Restrictions? No MIGRATION.26016 91407 Information not available 12/11/2022 Sex: Female Functional Status Question Answer Note LastModified by Organizat ion Details LastModified Time Do you use any illicit or recreational drugs? No Information not available 01/20/2024 Do you or have you ever used any other forms of tobacco or nicotine? No Information not available 01/20/2024 What is your level of alcohol consumption? None MIGRATION.698352 2511 Information not available 12/11/2022 Do you or have you ever used smokeless tobacco? Never used smokeless tobacco MIGRATION.794806 9809 Information not available 12/11/2022 Are you currently employed? 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 Never used electronic cigarettes MIGRATION.411230 3170 Information not available 12/11/2022 What is your exercise level? Occasional MIGRATION.595611 4230 Information not available 12/11/2022 Mental Status Question Answer Note LastModified by Organizat ion Details LastModified Time Do you feel stressed (tense, restless, nervous, or anxious, or unable to sleep at night)? [id number] MIGRATION.[id number] 6 Information not available 12/11/2022 Family History Relationship Description Onset Age of this Age Resolved Age Notes LastModified by Organization Details LastModified Time Paternal Grandmother Malignant tumor of breast MIGRATION.642 [id number] Not available 12/11/2022 00:55:52 Mother Hypothyroidi sm MIGRATION.801 [id number] Not available 12/11/2022 00:55:52 Mother Hypertensive disorder MIGRATION.324 [id number] Not available 12/11/2022 00:55:52 Brother Malignant neoplasm of urinary bladder MIGRATION.206 [id number] Not available 12/11/2022 00:55:52 Brother Malignant neoplasm of urinary bladder MIGRATION.401 [id number] Not available 12/11/2022 10:41:03 Father Hypertensive disorder MIGRATION.248 [id number] Not available 12/11/2022 00:55:52 Medical History Condition Response NERVE DISEASE N BLINDNESS N RHEUMATIC FEVER N KIDNEY STONES Y BLADDER PROBLEMS N OTHER # 1 Y POLIO N LUNG DISEASE/DISORDER N COPD N RADIATION / CHEMOTHERAPY N Other # 2 N BLOOD DISEASES [...] PF 5 completed Lupe Chase APRN [address], [address], [facility] [employer] 05/07/2024 17:26:03 Influenza, split virus, quadrivalent, PF 9 completed Lupe Chase APRN [address] [address], [place], [address], [facility] [employer] [facility] 05/07/2024 17:26:18 Influenza, split virus, quadrivalent, preservative 9 kyaw Chase APRN [address] [facility] [address], [place], [address], [employer] 05/07/2024 17:26:18 Influenza, split virus, quadrivalent, PF 2 completed Not Available [facility] 07/08/2023 07:36:53 Influenza, split virus, trivalent, PF 4 completed Lupe Chase APRN [address] [facility], [place], [address], [place] [employer] 08/24/2024 08:02:41 Past Encounters Encounter ID Performer Location Encounter Start Date Encounter Closed Date Diagnosis/Indication Diagnosis SNOMED-CT Code Diagnosis ICD10 Code Diagnosis Note [id number] RADHA Milan S_[facility] Internal Med [facility] [address] [address] 12/11/2020 00:00:00 12/11/2020 14:02:50 [id number] RADHA Milan S_[facility] Internal Med [facility] [address] [address] 12/22/2020 00:00:00 12/22/2020 14:36:19 [id number] Aravind carrillo MD S_[facility]G Internal Med [facility] [address] [address] 03/13/2021 00:00:00 03/13/2021 15:46:11 [id number] [facility] [place] [address] [facility] [address] [place] [address] 2021 00:00:00 03/15/2021 09:29:23 [id number] MD CHUCKY CarterS_GMG [facility] [address] [place] [address] 05/01/2021 00:00:00 05/01/2021 16:38:55 [id number] MD CHUCKY CarterS_GMBimal [facility] [address] [place] [address] 05/15/2021 00:00:00 05/15/2021 16:27:01 [id number] MD TIMMY Carter_GMBimal [facility] [address] [place] [address] 06/12/2021 00:00:00 06/12/2021 16:20:40 [id number] MD TIMMY Carter_[facility] [place] [address] [id number] 12/04/2021 00:00:00 12/04/2021 16:41:56 [id number] MD CHUCKY RamirezS_GMG Internal Med [facility] 15 [address] [facility], [address] [address] 12/10/2021 00:00:00 12/10/2021 12:22:36 [id number] MD CHUCKY RamirezS_GMG Internal Med [facility] 15 [address] [facility], [address] [address] 02/04/2022 00:00:00 02/04/2022 16:59:41 [id number] MD CHUCKY RamirezS_[facility]G Internal Med [place] [address] [facility] , [place] [address] 05/29/2022 00:00:00 05/29/2022 14:29:00 [id number] MD CHUCKY RamirezS_GMG Internal Med [facility] 15 [address] [facility], [address] [address] 08/23/2022 00:00:00 08/23/2022 16:15:38 [id number] MD CHUCKY RamirezS_GMG Internal Med [facility] 15 [address] [facility], [address] [address] 1 10/18/2022 00:00:00 10/18/2022 16:08:06 [id number] MD TIMMY Ann_[facility]G General Surgery 2043 [facility], [address] [address] 10/24/2022 00:00:00 10/24/2022 13:02:36 [id number] Melida Caal, [facility] Pulmonolo gy Fredi Morton [address] [place] [address] 11/18/2022 00:00:00 11/18/2022 16:38:14 [id number] Jo Burks NP [facility] [address] [place] [address] [address] 03/26/2021 00:00:00 03/26/2021 13:21:21 [id number] Jo Burks NP [facility] [address] [place] [address] [address] 07/31/2021 00:00:00 07/31/2021 10:17:57 [id number] Jo Burks NP [facility] [address] [place] [address] [address] 11/07/2021 00:00:00 11/07/2021 10:52:56 [id number] Jo Burks NP [facility] [address] [place] [address] [address] 03/20/2022 00:00:00 03/20/2022 14:35:14 [id number] Jo Burks NP [facility] [address] [facility] [address] 07/03/2022 00:00:00 07/03/2022 15:33:58 [id number] Jo Burks NP [facility] [address] [place] [address] [address] 10/30/2022 00:00:00 10/30/2022 16:39:13 [id number] Aravind carrillo [place] [place] [address] [place] [address] 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/p hyst Asthma 333978445 J45.90 9 recommend she take her Advair as prescribed on albuterol prnget re-establi shed with pulm Sleep apnea 51813944 G47 .30 is s/p sleep study no JAMILA, but could be checked for narcolepsy - she declines referral for MSLT or for sleep specialist at this time Chronic ab dominal pain 757565055 R10.9 Follows GI- Dr. Juan Francisco Martinez Mixed anxi ety and depressive disorder 955707785 F41.8 now following psychiatry - Jo at [facility] duloxetine , wellbutrin call office if any change in mood or behavior Cardiac dipak el[place] in situ 155894962 Z95.[address] Johnson Cervical radiculopathy 26677072 M54.12 following neurosurge ry- Dr. 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 Menon Body mass index 25-29 - overweight 061921025 Z68.29 recommend healthy, well balanced mealsfocus on lean meats, fresh vegetables , fresh fruits, whole grainsredu ce fast/proce ssed foods or eating out to no more than 1-2 times per weekaim to get 30 min of exercise most days of the week- walking is a great choice Chronic low back pain 27 8681388 M54.50 wants new pain management referral in [facility] d PT- she declinesER precaution s Screening mammography 24 746791 Z12.31 [id number] Jo Burks NP [facility] [address] [facility], [address] [place] [address] 04/08/2023 15:58:21 04/08/2023 16:43:25 [id number] Dion Bonilla MD [facility] 2043 [facility] [address] [place] [address] 05/26/2023 16:28:58 05/26/2023 17:01:12 Kidney stone 60182239 N20.0 Hx of stones, check kub. Urinary incontinence 165 927462 R32 MOstly stress, went over conservati ve measures including pelvic floor exercises and timed voiding will call if wants PT. 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/p hyst Asthma 240059325 J45.90 9 recommend she take her Advair as prescribed on albuterol prnfollows pulm- Melida Caal Sleep apnea 73342055 G47 .30 is s/p sleep study no JAMILA, but could be checked for narcolepsy - she declines referral for MSLT or for sleep specialist at this time Chronic ab dominal pain 809539343 R10.9 Follows GI- Dr. Juan Francisco Martinez Mixed anxi ety and depressive disorder 220943483 F41.8 now following psychiatry - Jo at [place] duloxetine , wellbutrin call office if any change in mood or behavior Cardiac pa eldon in situ 205732515 Z95.[address] Johnson Cervical radiculopathy 08863135 M54.12 following neurosurge ry- Dr. Forgetis s/p cervical fusion gai n recommend she make a followup appt with her neurosurge on- this was recommende d previously and she did not goER precaution s Prediabetes 603313359 R7 3.03 insurance will not cover injectable sshe is working on diet/exerc ise Metabolic dysfunction-associate d steatohepatitis 579082487 K75.81 Follows [facility] hepatology - Dr. Menon Body mass index 25-29 - overweight 429111630 Z68.29 recommend healthy, well balanced mealsfocus on lean meats, fresh vegetables , fresh fruits, whole grainsredu ce fast/proce ssed foods or eating out to no more than 1-2 times per weekaim to get 30 min of exercise most days of the week- walking is a great choice Chronic low back pain 27 8154350 M54.50 wants new pain management referral in [facility] le- referred to [facility] but she decided not to faiza cyr PT- she declinesER precaution s Screening mammography 24 233381 Z12.31 [id number] Jo Burks NP [facility] [address] [address] 09/18/2023 09:43:32 09/18/2023 10:33:40 [id number] Aravind carrillo MD [facility] Internal Med [facility] [address] [address] 01/20/2024 16:42:46 01/20/2024 17:19:13 Hyperlipidemia 89853966 E78.5 Mixed anxi ety and depressive disorder 377900125 F41.8 Fatigue 95538697 R53.83 Asthma 098542662 J45.90 9 Essential hypertension 04006331 I10 Mass of upper limb 52149 5008 R22.32 Infection of big toe 309 190545 L08.9 [id number] Jo Burks NP [facility] [address] [address] 01/28/2024 11:36:00 01/28/2024 12:24:25 [id number] Rich Lockwood DPM [facility] [address] [place] [address] [address] [place] [address] 02/12/2024 15:23:32 02/13/2024 09:05:12 Ingrowing nail of toe of right foot 6949423548 1605666 L60.0 great toe, medial borderpart ial matrixecto [...] the nearest ER.Follow- up in 10 days [id number] Rich Lockwood DPM [facility] Podiatry Fredi Morton [address] [facility] [address] [place] [address] 02/23/2024 15:50:23 02/23/2024 18:00:13 Ingrowing nail of toe of right foot 7916125281 4791670 L60.0 great toe, medial borderpart ial matrixecto [...] the nearest ER.Follow- up in 7 days [id number] Aravind carrillo MD [facility] Internal Med [facility] [address] [facility] [address] [place] [address] 05/10/2024 11:36:27 05/10/2024 12:11:55 Screening mammography 16877491 Z12.31 Asthma 593843194 J45.90 9 [id number] Aravind carrillo MD [facility] Internal Med [facility] [address] [facility] [place] [address] 06/16/2024 08:20:27 06/16/2024 08:53:54 Asthma 047042830 J45.621 [id number] Mariola Lal NP S_[facility]G Pulmonolo gy [place] [address] [place] [address] 15 [place] [address] 07/15/2024 09:34:14 07/15/2024 10:20:49 Asthma 159229375 J45.31 ACT on no maintenanc e inhaler: [...] in breathing and increase use of inhaler [id number] Aravind carrillo MD S_G Internal Med 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[address] Menon in [place], referred 01/19/2025 Vitamin D deficiency 347 17816 E55.9 Screening mammography 24 065191 Z12.31 Gynecologi c examination 10440300 Z01.419 Sinusitis 07306282 J32.9 Mainly L sided sinuses, c/o throbbing pain, will get CT sinusGet on [facility] center[facility] Postmenopausal state 764 [address]6447 Z78.0 [id number] Aravind carrillo MD [facility] Primary Care [facility] [address] [facility] [address] [facility] [place] [address] 01/21/2025 11:21:31 01/21/2025 11:53:13 Health Concerns Section Related Observation LastModified by Organization Detai ls LastModified Time None Recorded Concern Status LastModified by Organization Details LastModified Time None Recorded Advance Directives Directive N: Payers Encounter Date Sequence Insurance Name Policy Number Policy Lebron Covered Member ID Lebron Member ID Guarantor Name 06/16/2024 1 [employer] (PPO) [id number] Remedios Lipscomb [id number] Remedios Millswell 07/15/2024 1 [place] [id number] Remedios Reeder Mowell [id number] Remedios Reeder Mowell 08/23/2024 1 [place] [id number] Remedios Reeder Mowell [id number] Remedios Reeder Mowell 01/19/2025 1 [place] [id number] Remedios Reeder Mowell [id number] 03 Remedios Reeder Mowell 01/21/2025 1 [place] [id number] Remedios Reeder Mowell [id number] Remedios Reeder Mowell Notes Date Note Type Note Provider Name and Address Organization Details Recorded Time 06/16/2024 text/html Remedios presents tod ay for 3 month follow up. She was wheezing, coughing with no results. She states that she was in the ED at [facility]. She was not told the results of her testing there. And was not sent home with any prescriptions. 05/10/2024my presents today for dyspnea, throat pain. She states that she is constantly feeling short of breath. She has been to see cardiology and ED for these episodes. Lupe Chase, COLLIERY CLERK [address] [facility], [facility] [address], [place], [address], [facility] [employer] of Data 06/16/2024 08:50:47 07/15/2024 text/html Asthma F/UReport ed bypatient.Severity:not able to sleep during episode;symptoms cause awakening from sleep;interferes with daily activities Context:worsening Associated Symptoms:no post nasal drip; no edema; no chest pain; no paroxysmal nocturnal dyspnea; no sputum production; no hemoptysis; no sleep attacks;dyspnea exertional;cough non-productive;wheezing exertional;daytime somnolence;GERD Prior History:prior hospitalization/ER visits for asthma; oral steroids have been used for treatment; last visit: (05/2024)Notes:patient notes has had pft in past and told she has asthmashe notes a recent pft [facility] but unsure findingsshe notes worsening of her breathing-did not have a maintenance inhaler-review of old visit last year shows was rx'd onehas been to ER several times-feels tightness all the time with breathing-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 She was not told the results of her testing there. And was not sent home with any prescriptions. 05/10/2024my presents today for dyspnea, throat pain. She states that she is constantly feeling short of breath. She has been to see cardiology and ED for these episodes. Lupe Chase APRN [address], [place], [address], [employer] 08/24/2024 08:38:02 01/19/2025 text/html OV 01/19/2025: H ere to establish care Present Hx:HLDAsthmaAnxiety/Dep ressionLBPCADNon alcoholic hepatic steatosisSinusitis Here to discuss multiple issues, wants to discuss sinus symptoms, has noted facial pain and this has caused her dizzy symptoms Aravind Hillman MD [address], [place], [address], [employer] 01/19/2025 18:36:01 OBGyn Episode No OBEpisode recorded.
--- OUTSIDE RECORDS SUMMARY | 2025-03-11 11:21 | XMS_ITS | Clinical Summary ---
Author Organization [facility] Address [address] [place] [address] Phone Care Team Providers Care Network Administrator Name Role Phone Minerva Richardson NP Primary [...] Encounters Date Type Department Care Team Description 03/03/2025 External Device Data [facility] ABSTRACTION Provider, Abstract 03/02/2025 External Device Data [facility] Provider, Abstract 03/01/2025 External Device Data [facility] Provider, Abstract 01/26/2025 Telephone [facility] Neurosurgery - Medical [place] [address] [facility] [address] [place] [address] Edis Veronica MD Wants Appointment 01/25/2025 External Device Data [facility] [place]STRACTION Provider, Abstract 01/25/2025 Abstract [facility] Neurosurgery - Medical [place] [address] [facility] [address] [place] [address] Provider, Abstract 12/29/2024 External Device Data [facility] ABSTRACTION Provider, [...] Comments Blood Pressure 107/78 11/21/2021 10:43 AM SUPERVISOR SHIPPING Pulse 86 08/29/2021 2:41 PM SUPERVISOR SHIPPING Temperature 36.8 C (98.2 F) 11/21/2021 10:43 AM SUPERVISOR SHIPPING Respiratory Rate 16 07/09/2021 4:08 PM CDT Oxygen Saturation 95% 07/09/2021 4:08 PM CDT Inhaled Oxygen Concentration - - Weight 98.9 kg (218 lb) 11/21/2021 10:43 AM SUPERVISOR SHIPPING Height 182.9 cm (6') 11/21/2021 10:43 AM SUPERVISOR SHIPPING Body Mass Index 29.57 11/21/2021 10:43 AM SUPERVISOR SHIPPING Plan of Treatment Upcoming Encounters Date Type Department Care Team (Late st Contact Info) Description 03/22/2025 1:30 PM CDT Office Visit [facility] Neurosurgery - Medical [place] [address] [facility] [address] [place] [address] Edis Veronica MD [address] [facility] [address] [address] -[phone] (Work) Health Maintenance Due Date Last Done Comments [...] 08/17/2019, 08/16/2019 Medical Devices Implanted Type Area Events Manager Device Identifier Shelf Expiration Date Model / Serial / Lot Triad Cc Allograft Implanted:Qt y: 1 on 07/09/2021 by Edis Veronica MD at [facility] Bone N/A: Spine Cervical Anterior [employer] 11/08/2025 [id number] / [id number] / Hemostatic Surgiflo 8ml W/ Thrombin 2994 - Old - [id number] Implanted:Qt y: 1 on 07/09/2021 by Edis Veronica MD at [facility] Hemostatic N/A: Spine Cervical Anterior [employer] [id number] 11/12/2022 2994 / / [id number] Acp 1.6v, 42mm, 2 Level Plate Implanted:Qt y: 1 on 07/09/2021 by Edis Veronica MD at [facility] Plate N/A: Spine Cervical Anterior [employer] [id number] / LOAD 2 9 / STERILIZED 06-29-21 Description:All Nuv[employer] cer vical hardware was processed on requisition, 105317. Acp Screw, 3.5 X 15 Mm Self Drilling Jailyn Implanted:Qt y: 6 on 07/09/2021 by Edis Veronica MD at [facility] Screw N/A: Spine Cervical Anterior [employer] [id number] / LOAD 2 9 / STERILIZED 06-29-21 Allograft Triad Cc Cerv [id number] - [id number] Implanted:Qt y: 1 on 07/09/2021 by Edis Veronica MD at [facility] Tissue N/A: Spine Cervical Anterior [employer] 01/28/2026 [id number] / [id number] / Pacemaker Insurance BCBS BLUE ACCESS/TRUE BLUE PPO RX [employer] Commercial Care Teams Network Administrator Relationship Specialty Start Date End Date Minerva Richardson NP PCP - General NURSE PRACTITIONER 12/27/20
--- OUTSIDE RECORDS SUMMARY | 2025-03-11 11:21 | XMS_ITS | CONTINUITY OF CARE DOCUMENT ---
Author Name yonny blancas Address Unknown Organization [facility] Address [address] [place] [address] Phone [phone] Care Team Providers Care Regulatory Affairs Director Name Role Phone Finn Johnson MD Unavailable [phone] Matilda CORNEJO, Almas Unavailable Almas Bernal Unavailable [phone] PROBLEMS Condition Status Date Provider Notes Lower extremity edema, bilateral active Teena Shaw SICK SINUS SYNDROME active Kerry Monica SYNCOPE active Jae Miller HTN-02/21ECHO EF 60-01/20ECHO EF 60-05/19ECHO EF 60, PULM HTN, completed - Finn Johnson MD CHEST PAIN - 04/2008 CATH NEG active Marleni Packer S/P ST KI DC PM GEN CHANGE 05/20/2011/ Gen change DC PM Biotronik 03/24/23 ( NOT MRI SAFE/SCHULTZ LEADS) active Hailey Porter Tobacco use quit active Finn Johnson MD CAD-07/18 CAROTID NEG completed - Finn Johnson MD HTN - 01/2010 MARIBELL DUP NEG completed 02/24 - Timi Ross PALPITATIONS active Jae Miller Shortness of breath active Venkatesh ryan MD Headache completed - Jae Miller Numbness, left extremities completed 02/04 - Juan Manuel Toledo MD Dizziness completed - Jae Miller Sleep apnea active Lynette Salazar MD SVT S/P ABLATION 08/2019 active Jae ludwig Exposure to SARS-associated coronavirus active Jae Miller Hypertension active Shruthi Gallagher Chronic venous hypertension (idiopathic) without complications of bilateral lower extremity active Albert Tawanna Hyperlipidemia active Albert Tawanna Mitral regurgitation active Timi Ross ENCOUNTERS Date Type Provider Location Encounter Diag nosis - In-person encounter Office Visit Rik Rodriguez DO [facility] Office - In-person encounter Office Visit Venkatesh Carbone MD [facility] Mitral regurgitation - In-person encounter Office Visit Finn Johnson MD [facility] Office - In-person encounter Office Visit Finn Johnson MD [facility] Office - In-person encounter Office Visit Finn Johnson MD [place] [facility] Hyperlipidemia - In-person encounter Office Visit Finn Johnson MD [facility] Chronic venous hypertension (idiopathic) without complications of bilateral lower extremity - In-person encounter Office Visit Venkatesh Carbone MD [place] [facility] HTN - 01/2010 MARIBELL DUP NEG - In-person encounter Office Visit Finn Johnson MD [facility] Office - In-person encounter Office Visit Venkatesh Carbone MD [facility] - In-person encounter Office Visit Venkatesh Carbone MD [place] [facility] - In-person encounter Office Visit Finn Johnson MD [facility] Hypertension - In-person encounter Office Visit Finn Johnson MD [place] [facility] HeadacheDizzinessExposure to SARS-associated coronavirus - In-person encounter Office Visit Venkatesh Carbone MD [facility] - In-person encounter Office Visit Finn Johnson MD [facility] SVT S/P ABLATION 2018 - In-person encounter Office Visit Venkatesh Carbone MD [facility] Office - In-person encounter Office Visit Venkatesh Carbone MD [place] [facility] SVT S/P ABLATION 08/2019 - In-person encounter Office Visit Finn Johnson MD [facility] Tobacco use quit - In-person encounter Office Visit Juan Manuel Toledo MD [place] [facility] Numbness, left extremities - In-person encounter Office Visit Lynette Salazar MD [place] [facility] Sleep apnea - In-person encounter Office Visit Finn Johnson MD [place] [facility] SYNCOPECHEST PAIN - 04/2008 CATH NEGS/P ST KI DC PM GEN CHANGE 05/20/2011/ Gen change DC PM Biotronik 03/24/23 ( NOT MRI SAFE/SCHULTZ LEADS)Tobacco use quitPALPITATIONS - In-person encounter Office Visit Finn Johnson MD [place] [facility] CAD-07/18 CAROTID NEGHTN - 01/2010 MARIBELL DUP NEG - In-person encounter Office Visit Juan Manuel Toledo MD [place] [facility] - In-person encounter Office Visit Venkatesh Carbone MD [place] [facility] Shortness of breathHeadache - In-person encounter Office Visit Finn Johnson MD [facility] - In-person encounter Office Visit Finn Johnson MD [place] [facility] - In-person encounter Office Visit Finn Johnson MD [place] [facility] - In-person encounter Office Visit Finn Johnson MD [place] [facility] - In-person encounter Office Visit Diego Segura MD [place] [facility] - In-person encounter Office Visit Finn Johnson MD [facility] - In-person encounter Office Visit Brenda Melgar MD [facility] - In-person encounter Office Visit Finn Johnson MD [place] [facility] - In-person encounter Office Visit Finn Johnson MD [place] [facility] - In-person encounter Office Visit RAHUL ROSALES MD [facility] - In-person encounter Office Visit Finn Johnson MD [place] [facility] Tobacco use quit - In-person encounter Office Visit Ray Mon MD [place] [facility] - In-person encounter Office Visit Finn Johnson MD [place] [facility] - In-person encounter Office Visit Finn Johnson MD [facility] CHEST PAIN - 04/2008 CATH NEGS/P ST KI DC PM GEN CHANGE 05/20/2011/ Gen change DC PM Biotronik 03/24/23 ( NOT MRI SAFE/SCHULTZ LEADS) - In-person encounter Office Visit Finn Johnson MD [place] [facility] - In-person encounter Office Visit Finn Johnson MD [facility] HTN-02/21ECHO EF 60-4/10ECHO EF 60-8/07ECHO EF 60, PULM HTN, VITAL SIGNS Date Observation Value Provider Body Mass Index (Ratio) 27.96 kg/m2 Prad eep Babak Rodriguez DO blood pressure, diastolic 98 mm[Hg] Kristen nkLogic blood pressure, systolic 130 mm[Hg] Patricia kLogic blood pressure, diastolic 98 mm[Hg] Ky cinthia Marinelliam blood pressure, systolic 130 mm[Hg] Kyl glenda Marinelliam pulse rate 89 /min Eliana Marinelliam oxygen saturation, oximetry 96 % Eliana Albert respiratory rate E&M 12 /min Eliana matute weight E&M 206.2 [lb_av] Eliana Albert blood pressure, cuff size regular Ky cinthia Albert height E&M 72 [in_i] Kycinthia Albert Body Mass Index (Ratio) 32.68 kg/m2 Timi Robleschip blood pressure, cuff size regular Ke rri Gruenenfelder blood pressure, diastolic 72 mm[Hg] Ke rri Gruenenfelder blood pressure, systolic 124 mm[Hg] Ker ri Gruenenfelder oxygen saturation, oximetry 97 % Alicja Gruenenfelder respiratory rate E&M 14 /min Alicja G ruenenfelder pulse rate 73 /min Alicja Gruenenfe lder weight E&M 241 [lb_av] Alicja Gruenenfe lder height E&M 72 [in_i] Alicja Gruenenfe lder Body Mass Index (Ratio) 31.73 kg/m2 Nish as Joseph blood pressure, cuff size large Ke rri Gruenenfelder blood pressure, diastolic 80 mm[Hg] Ke rri Gruenenfelder blood pressure, systolic 146 mm[Hg] Ker ri Gruenenfelder oxygen saturation, oximetry 100 % Alicja Gruenenfelder respiratory rate E&M 12 /min Alicja G ruenenfelder pulse rate 75 /min Alicja Gruenenfe weight E&M 234 [lb_av] Alicja Kay height E&M 72 [in_i] Alicja Kay Body Mass Index (Ratio) 32.00 kg/m2 [facility] asad Tawanna blood pressure, diastolic 87 mm[Hg] Pallavi skylar Matthews blood pressure, systolic 123 mm[Hg] Any a Byron pulse rate 67 /min Carol Byron oxygen saturation, oximetry 94 % Carol Byron weight E&M 236 [lb_av] Carol Byron blood pressure, cuff size large An skylar Matthews height E&M 72 [in_i] Carol Matthews Body Mass Index (Ratio) 31.73 kg/m2 [facility] blood pressure, diastolic 104 mm[Hg] Kristen nkLog blood pressure, systolic 137 mm[Hg] Patricia kLog blood pressure, cuff size regular John [facility] blood pressure, diastolic 104 mm[Hg] John rret blood pressure, systolic 137 mm[Hg] Cosme ret pulse rate 110 /min Vick oxygen saturation, oximetry 100 % Vick respiratory rate E&M 16 /min Vick weight E&M 234 [lb_av] Vick height E&M 72 [in_i] Vick Body Mass Index (Ratio) 31.33 kg/m2 [facility] asad Tawanna blood pressure, diastolic 109 mm[Hg] Pallavi skylar Matthews blood pressure, systolic 158 mm[Hg] Any a Byron oxygen saturation, oximetry 100 % Carol Matthews pulse rate 72 /min Carol Bryon weight E&M 231 [lb_av] Carol Byron blood pressure, cuff size large Pallavi cheng Byron height E&M 72 [in_i] Carol Byron blood pressure, diastolic 94 mm[Hg] Kristen Log blood pressure, systolic 146 mm[Hg] Patricia [facility] Body Mass Index (Ratio) 30.38 kg/m2 [facility] blood [facility], diastolic 94 mm[Hg] Pallavi cheng Byron blood pressure, systolic 146 mm[Hg] Any gerardo Byron pulse rate 66 /min Carol Byron oxygen saturation, oximetry 98 % Carol Byron weight E&M 224 [lb_av] Carol Byron blood pressure, cuff size large Pallavi cheng Byron height E&M 72 [in_i] [facility] ([facility]) 29.97 kg/m2 Timi [facility] blood pressure, diastolic 85 mm[Hg] Kristen Log blood pressure, systolic 139 mm[Hg] Patricia [facility] blood pressure, diastolic 85 mm[Hg] Татьяна [place]in [place] blood pressure, systolic 139 mm[Hg] [facility] ernesto Mcdonald oxygen saturation, oximetry 100 % Adela Mcdonald pulse rate 83 /min Adela ambriz respiratory rate E&M 16 /min Lien Langfordand blood pressure, cuff size large Татьяна aust[place] Harry weight E&M 221 [lb_av] Adela ambriz height E&M 72 [in_i] Adela ambriz Body Mass Index (Ratio) 29.29 kg/m2 Rakan Carbone MD blood pressure, cuff size regular Stevo Valdez NP blood pressure, diastolic 114 mm[Hg] Stevo ramírez [employer] blood pressure, systolic 186 mm[Hg] Lisset Pricedler [employer] respiratory rate E&M 18 /min Tomy pond Fendler [employer] pulse rate 92 /min Ines Pricedle r [employer] weight E&M 216 [lb_av] Ines Pricedle r [employer] height E&M 72 [in_i] Ines Pricedle r [employer] Body Mass Index (Ratio) 29.29 kg/m2 Triny Gallagher blood pressure, diastolic 108 mm[Hg] Li nkLogic blood pressure, systolic 150 mm[Hg] Patricia kLogic blood pressure, diastolic 108 mm[Hg] Ca therine Ryan blood pressure, systolic 150 mm[Hg] Cat herine [place] oxygen saturation, oximetry 97 % Vanessa [place] respiratory rate E&M 16 /min Catheri ne [place] pulse rate 74 /min Vanessa [place] weight E&M 216 [lb_av] Vanessa Ryan blood pressure, cuff size regular Ca therine Ryan height E&M 72 [in_i] Vanessa [place] weight E&M 222 [lb_av] Meghann Lyon Body Mass Index (Ratio) 26.31 kg/m2 Edmond Miller blood pressure, cuff size regular Cy nthia Meek blood pressure, diastolic 101 mm[Hg] Cy nthia Meek blood pressure, systolic 154 mm[Hg] Jesika sami [place] oxygen saturation, oximetry 98 % Sintia [place] respiratory rate E&M 16 /min Sintia Meek pulse rate 96 /min Sintia akbar weight E&M 194 [lb_av] Sintia Campbel l height E&M 72 [in_i] Sintia Campbel l Body Mass Index (Ratio) 30.11 kg/m2 Taew josé Solomon blood pressure, diastolic 95 mm[Hg] Rh onda Pam blood pressure, systolic 140 mm[Hg] Rho dadaa Pam oxygen saturation, oximetry 98 % Emmy Pam pulse rate 86 /min Emmy Pam weight E&M 222 [lb_av] Emmy Pam blood pressure, cuff size regular Rh onkarol Pam respiratory rate E&M 16 /min Emmy Pam height E&M 72 [in_i] Emmy Pam Body Mass Index (Ratio) 28.48 kg/m2 Finn Johnson MD weight E&M 210 [lb_av] Jae Lundb erg height E&M 72 [in_i] Jae Lundb erg Body Mass Index (Ratio) 28.21 kg/m2 [...] Edisbel l oxygen saturation, oximetry 96 % Sintia Eden respiratory rate E&M 16 /min Sintia Eden blood pressure, cuff size regular Cy holly Eden blood pressure, diastolic 80 mm[Hg] Jimmy [place] blood pressure, systolic 130 mm[Hg] Jesika [place] weight E&M 213 [lb_av] Sintia akbar height E&M 72 [in_i] Sintia Whitley l Body Mass Index (Ratio) 25.90 kg/m2 [...] blood pressure, cuff size large Ke rri Cary blood pressure, diastolic 80 mm[Hg] Ke rri Cristianueneestephania blood pressure, systolic 146 mm[Hg] Uma Townsend oxygen saturation, oximetry 99 % Alicja Townsend respiratory rate E&M 20 /min Alicja zuluaga pulse rate 85 /min Alicja Kay lder weight E&M 200 [lb_av] Alicja Kay lder height E&M 72 [in_i] Alicja Kay lder Body Mass Index (Ratio) 27.80 kg/m2 Kandis Ortiz blood pressure, diastolic 120 mm[Hg] Ki lleen Diaz blood pressure, systolic 160 mm[Hg] Jose Francisco holley Diaz respiratory rate E&M 16 /min Una Diaz oxygen saturation, oximetry 95 % Una Diaz pulse rate 73 /min Una Tapiaam weight E&M 205 [lb_av] Una Diaz height E&M 72 [in_i] Una Diaz Body Mass Index (Ratio) 27.80 kg/m2 Edmond Miller blood pressure, resting Yes Laurie Dominguez blood pressure, diastolic 99 mm[Hg] Conor Dominguez blood pressure, systolic 155 mm[Hg] Bess Cardozasanjuanitakevin Dominguez oxygen saturation, oximetry 92 % Caroline Alberto respiratory rate E&M 18 /min Apolinar Dominguez pulse rate 74 /min Caroline tristan weight E&M 205 [lb_av] Caroline Gutierrez sofiajosé height E&M 72 [in_i] Caroline Gutierrez sofiajosé blood pressure, diastolic 90 mm[Hg] Conor Dominguez blood pressure, systolic 134 mm[Hg] Bess Dominguez pulse rate 65 /min Caroline tristan oxygen saturation, oximetry 96 % Caroline Dominguez respiratory rate E&M 18 /min Apolinar Dominguez Body Mass Index (Ratio) 29.32 kg/m2 Laurie Dominguez weight E&M 216.2 [lb_av] Caroline allenon blood pressure, scanlon tolic, left arm 126 mm[Hg] Gerri Herman blood pressure, systolic, left arm 185 mm [Hg] Gerri Herman blood pressure, scanlon tolic, right arm 126 mm[Hg] Gerri Herman blood pressure, syst olic, right arm 187 mm[Hg] Gerri Herman blood pressure, diastolic 126 mm[Hg] Il neil Herman blood pressure, systolic 185 mm[Hg] Symone shante Herman respiratory rate E&M 18 /min Gerri Sutton pulse rate 75 /min Gerri Sutton oxygen saturation, oximetry 99 % Gerri Sutton Body Mass Index (Ratio) 29.64 kg/m2 Justine Sutton weight E&M 218.6 [lb_av] Gerri Sutton Body Mass Index (Ratio) 29.16 kg/m2 Justine youngblood Patiño blood pressure, diastolic 115 mm[Hg] Me neil Patiño blood pressure, systolic 153 mm[Hg] Symone frey Patiño pulse rate 80 /min Gerri Patiño oxygen saturation, oximetry 98 % Gerri Patiño respiratory rate E&M 16 /min Gerri Patiño weight E&M 215 [lb_av] Gerri Patiño Body Mass Index (Ratio) 29.70 kg/m2 Anea thomas [facility] blood pressure, scanlon tolic, left arm 106 mm[Hg] Aneatris [facility] blood pressure, systolic, left arm 150 mm [Hg] Aneatris [facility] blood pressure, scanlon tolic, right arm 107 mm[Hg] Aneatris [facility] blood pressure, syst olic, right arm 154 mm[Hg] Aneatris [facility] blood pressure, diastolic 107 mm[Hg] An eatris [facility] blood pressure, systolic 154 mm[Hg] Ane atris [facility] pulse rate 73 /min Aneatris Brown oxygen saturation, oximetry 99 % Aneatris Brown respiratory rate E&M 17 /min Aneatri s [facility] weight E&M 219 [lb_av] Aneatris Brown Body Mass Index (Ratio) 28.75 kg/m2 Joya i Cary blood pressure, diastolic 89 mm[Hg] Ke rri Cary blood pressure, systolic 134 mm[Hg] Ker ri Cary pulse rate 69 /min Alicja Kay lder oxygen saturation, oximetry 98 % Alicja Barretojazmine respiratory rate E&M 16 /min Alicja Wallis janellejayestephania weight E&M 212 [lb_av] Alicja Kay lder blood pressure, scanlon tolic, left arm 90 mm[Hg] Eunice Stueber blood pressure, systolic, left arm 142 mm [Hg] Eunice Stueber blood pressure, scanlon tolic, right arm 92 mm[Hg] Eunice Stueber blood pressure, syst olic, right arm 152 mm[Hg] Eunice Stueber Body Mass Index (Ratio) 28.50 kg/m2 Winnie a Stueber blood pressure, diastolic 90 mm[Hg] Ta emma Stueber blood pressure, systolic 142 mm[Hg] Tena skylar Stueber pulse rate 62 /min Eunice Stueber oxygen saturation, oximetry 99 % Eunice Stueber respiratory rate E&M 16 /min Eunice wilkinsoneber weight E&M 209.4 [lb_av] Eunice Stueber Body Mass Index (Ratio) 26.68 kg/m2 James Crisostomo pulse rate, standing 100 /min Jayden Crisostomo blood pressure, scanlon tolic, standing 91 mm[Hg] Cruzyean Crisostomo blood pressure, systolic, standing 123 mm [Hg] Cruzan Crisostomo blood pressure, diastolic, supine 103 mm[ Hg] Jayden Crisostomo blood pressure, syst olic, supine E&M 150 mm[Hg] Jayden Crisostomo blood pressure, diastolic 96 mm[Hg] Ledesma blood pressure, systolic 138 mm[Hg] Cruz Crisostomo pulse rate 57 /min Jayden Crisostomo oxygen saturation, oximetry 98 % Jayden Crisostomo respiratory rate E&M 16 /min Jayden Powerran weight E&M 196 [lb_av] Jayden Crisostomo Body Mass Index (Ratio) 26.15 kg/m2 James bryan Crisostomo blood pressure, diastolic 72 mm[Hg] Bowden Crisostomo blood pressure, systolic 96 mm[Hg] Cruz call Crisostomo pulse rate 65 /min Jayden Powerran oxygen saturation, oximetry 98 % Jayden Crisostomo respiratory rate E&M 16 /min Jayden Crisostomo weight E&M 192.13 [lb_av] Jayden Seema an blood pressure, scanlon tolic, left arm 76 mm[Hg] Octavio Burks RN blood pressure, systolic, left arm 122 mm [Hg] Octavio Burks RN blood pressure, scanlon tolic, right arm 82 mm[Hg] Octavio Burks RN blood pressure, syst olic, right arm 118 mm[Hg] Octavio Burks RN blood pressure, diastolic 76 mm[Hg] John Burks RN blood pressure, systolic 122 mm[Hg] Octavio Burks RN pulse rate 76 /min Octavio Burks RN oxygen saturation, oximetry 98 % Octavio Burks RN respiratory rate E&M 16 /min Octavio peña RN Body Mass Index (Ratio) 26.41 kg/m2 Octavio Burks RN weight E&M 194 [lb_av] Octavio Burks RN height E&M 72 [in_i] Octavio Burks RN blood pressure, scanlon tolic, left arm 110 mm[Hg] Joyce Lucio blood pressure, systolic, left arm 150 mm [Hg] Joyce Lucio blood pressure, scanlon tolic, right arm 108 mm[Hg] Joyce Lucio blood pressure, syst olic, right arm 158 mm[Hg] Joyce Naveed blood pressure, diastolic 110 mm[Hg] Estuardo malik Naveed blood pressure, systolic 150 mm[Hg] Bea jaime Naveed pulse rate 68 /min Joyce Naveed oxygen saturation, oximetry 98 % Joyce Naveed respiratory rate E&M 16 /min Joyce Dariusz crowley weight E&M 189 [lb_av] Joyce Naveed blood pressure, scanlon tolic, left arm 94 mm[Hg] [facility] Cris[facility] blood pressure, systolic, left arm 137 mm [Hg] [facility], scanlon tolic, right arm 97 mm[Hg] [facility] blood pressure, syst olic, right arm 147 mm[Hg] [facility] blood pressure, diastolic 97 mm[Hg] Bowden Crisostomo blood pressure, systolic 147 mm[Hg] [facility] pulse rate 65 /min [facility] oxygen saturation, oximetry 10 % [facility] respiratory rate E&M 16 /min [facility] weight E&M 200 [lb_av] [facility] Crisostomo blood pressure, diastolic 96 mm[Hg] He ather Blunt blood pressure, systolic 140 mm[Hg] Hea ther Blunt pulse rate 72 /min Ernestine Blunt oxygen saturation, oximetry 99 % Ernestine Blunt respiratory rate E&M 16 /min Ernestine Blunt weight E&M 199 [lb_av] Ernestine Blunt blood pressure, scanlon tolic, standing 80 mm[Hg] Christen Pinzon blood pressure, systolic, standing 120 mm [Hg] Christen Pinzon blood pressure, diastolic, sitting 82 mm[ Hg] Christen Pinzon blood pressure, systolic, sitting 128 mm[ Hg] Marianelanie Revere blood pressure, scanlon tolic, supine, right arm 88 [facility], syst olic, supine, r arm 136 [facility] blood pressure, scanlon tolic, left arm 88 mm[Hg] [facility] blood pressure, systolic, left arm 128 mm [Hg] Marianelanie Revere blood pressure, scanlon tolic, right arm 82 mm[Hg] Britducnie Jeromy blood pressure, syst olic, right arm 128 mm[Hg] [facility] blood pressure, diastolic, supine 82 mm[H g] [facility] blood pressure, syst olic, supine E&M 128 mm[Hg] [facility] pulse rate 93 /min Christen Pedersond en oxygen saturation, oximetry 99 % [facility] Pedersonden respiratory rate E&M 18 /min Trinyduc wesley Jeromy weight E&M 197 [lb_av] Brittannie Bgd en blood pressure, scanlon tolic, left arm 100 mm[Hg] Octavio Burks RN blood pressure, systolic, left arm 148 mm [Hg] Octavio Burks RN blood pressure, scanlon tolic, right arm 98 mm[Hg] Octavio Burks RN blood pressure, syst olic, right arm 143 mm[Hg] Octavio Burks RN blood pressure, diastolic 100 [...] RN respiratory rate E&M 20 /min Octavio rendonconnor RN weight E&M 203 [lb_av] Octavio Burks RN blood pressure, diastolic 121 mm[Hg] Te ri Hopkins blood pressure, systolic 201 mm[Hg] Ter i Hopkins pulse rate 69 /min Tameka Hopkins oxygen saturation, oximetry 98 % Tameka Hopkins respiratory rate E&M 16 /min Tameka Junior eileen weight E&M 209 [lb_av] Tameka Hopkins blood pressure, scanlon tolic, left arm 73 mm[Hg] Yunior Corona blood pressure, systolic, left arm 168 mm [Hg] Yunior Corona blood pressure, scanlon tolic, right arm 96 mm[Hg] Yunior Corona blood pressure, syst olic, right arm 160 mm[Hg] Yunior Corona pulse rate 60 /min Yunior Corona oxygen saturation, oximetry 100 % Yunior Corona respiratory rate E&M 18 /min Yunior tipton weight E&M 206 [lb_av] Yunior Corona blood pressure, scanlon tolic, left arm 110 mm[Hg] Yunior Corona blood pressure, systolic, left arm 160 mm [Hg] Yunior Corona blood pressure, scanlon tolic, right arm 93 mm[Hg] Yunior Corona blood pressure, syst olic, right arm 163 mm[Hg] Yunior Corona pulse rate 60 /min Yunior Corona oxygen saturation, oximetry 99 % Yunior Corona respiratory rate E&M 18 /min Yunior tipton weight E&M 210 [lb_av] Yunior Corona blood pressure, scanlon tolic, left arm 103 mm[Hg] Yunior Corona blood pressure, systolic, left arm 150 mm [Hg] Yunior Corona blood pressure, scanlon tolic, right arm 96 mm[Hg] Yunior Osullivand blood pressure, syst olic, right arm 141 mm[Hg] Yunior Osullivand pulse rate 86 /min Yunior Osullivand oxygen saturation, oximetry 100 % Yunior Osullivand respiratory rate E&M 18 /min Yunior Dowell milmarika weight E&M 168 [lb_av] Yunior Osullivand ALLERGIES Allergy Name Onset Date Reaction Criticality [...] Not Estab. platelet count 297 X10E3/UL LinkLogic [phone]/11 /07 red blood cell distribution width 12.9 [...] LinkLogic 3.5-5.2 sodium, serum 140 mmol/L LinkLogic [phone]/11 /07 urea nitrogen/creatinine ratio, serum 16 LinkLogic 9-23 creatinine, serum 1.00 mg/dL LinkLogic 0.57-1.00 urea nitrogen, blood 16 mg/dL LinkLogic 6-24 blood glucose, random 81 mg/dL LinkLogic 70-99 D-dimer quantitative mcg/mL 0.50 MG/L FEU LinkLogic 0.00-0.49 High ferritin, serum 49 ng/mL LinkLogic [...] iron binding capacity, unsaturated 293 ug/dL LinkLogic [phone]/09 /24 iron binding capacity, total 363 ug/dL LinkLogic [phone]/09 /24 alanine aminotransferase (SGPT), serum 30 1/L LinkLogic 0-32 aspartate aminotransferase (SGOT), serum 22 1/L LinkLogic 0-40 alkaline phosphatase, serum 132 1/L LinkLogic 39-117 High bilirubin, serum, total 0.3 mg/dL LinkLogic 0.0-1.2 albumin/globulin ratio, serum 1.3 Link[facility]ic 1.2-2.2 globulin, serum 3.3 LinkLogic 1.5-4.5 albumin, serum 4.4 g/dL LinkLogic 3.8-4.8 protein, total, serum 7.7 g/dL LinkLogic 6.0-8.5 calcium, serum 9.7 mg[facility] carbon dioxide, venous blood 24 mmol/L LinkLogic 20-29 chloride, serum 97 mmol/L LinkLogic 96-106 potassium, serum 4.2 mmol/L LinkLogic 3.5-5.2 sodium, serum 138 mmol/L LinkLogic [phone]/09 /24 urea nitrogen/creatinine ratio, serum 18 LinkLogic [...] Not Estab. platelet count 290 X10E3/UL LinkLogic [phone]/09 /24 red blood cell distribution width 13.3 [...] Emmy Orozco international normalized ratio (INR) 1.3 Emmygerardo Orozco Normal activated partial thromboplastin time (aPTT) 31.0 s LinkLog Units converted. See lab report for original value. calcium, serum 8.6 mg/dL LinkLogic 8.7-10.2 Low carbon dioxide, venous blood 19 mmol/L LinkLogic 20-29 Low chloride, serum 109 mmol/L LinkLogic 96-106 High potassium, serum 4.4 mmol/L LinkLogic 3.5-5.2 sodium, serum 140 mmol/L LinkLogic [phone]/10 /29 urea nitrogen/creatinine ratio, serum 14 LinkLogic [...] Not Estab. platelet count 270 X10E3/UL LinkLogic [phone]/10 /29 red blood cell distribution width 13.4 [...] Laurie Pyle RN bacteria, urine microscopy moderate [facility] RBC urine by microscopy 40-60 [facility] WBC urine on microscopy none [facility] leukocyte esterase, urine, by dipstick Negative [facility] urobilinogen, urine, semiquantitative (dipstick) normal [facility] nitrite, urine, semiquantitative Negative [facility] RBC, urine, dipstick 250 [facility] bilirubin, urine Negative [facility] ketones, urine, by test strip Negative [facility] glucose, urine, semiquantitative normal [facility] protein, urine, semiquantitative (dipstick) 25 [facility] pH, urine, semiquantitative 6.5 [facility] specific gravity, urine 1.020 [facility] urine color Yellow [facility] appearance, urine Slightly cloudy [facility] PTT patient 29.4 s [facility] prothrombin time (patient) 10.4 s [facility] international normalized ratio (INR) 1.0 [facility] creatinine, serum 0.96 mg/dL [facility] urea nitrogen, blood 15.1 mg/dL [facility] carbon dioxide, serum, total 26 mmol/L [facility] chloride, serum 103 mmol/L [facility] potassium, serum 4.0 mmol/L [facility] sodium, serum 137 mmol/L [facility] platelet count 259 10*3/uL [facility] hematocrit, blood 43.0 % [facility] hemoglobin, blood 14.8 g/dL [facility] erythrocyte (RBC) count 4.56 10*6/mm3 [facility] leukocyte count, blood 9.1 10*3/mm3 [facility] HISTORY OF MEDICATION USE Medication Status Instructions Dates Provider Indications Com ments Lopressor 50 mg tablet active TAKE 1 TABLET BY MOUTH TWICE A DAY 01/11 Rik Rodriguez DO albuterol sulfate 90 mcg/actuation HFA aerosol inhaler active as needed Ines Valdez NP gabapentin 300 mg capsule active twice a day Ines Valdez NP Plavix 75 mg tablet completed Take 1 table t by mouth once a day 10/21 - 10/22 Randee Wilson tramadol 100 mg tablet completed Take 1 tablet by mouth every six hours as needed for pain do not drive or use machinery for 12 hours after taking this medication 06/14 - Ines Valdez NP hydrochlorothiazide 25 mg tablet active Take 1 tablet by mouth once a day TAKE 1 TABLET BY MOUTH EVERY DAY 03/28 Finn Johnson MD Lopressor 100 mg tablet completed Take 1 tablet by mouth once a day TAKE 1 TABLET BY MOUTH TWICE A DAY 03/28 - 01/11 Rik Rodriguez DO oxycodone-acetaminoph en 5-325 mg tablet completed Take [...] six hours 02/01 - 06/13 Carol Matthews HM MAGNESIUM 400 MG ORAL TABLET completed 1 [...] ONE TAB. AT BEDTIME 10/25 - 04/30 Alicja Townsend PRILOSEC 40 MG ORAL CAPSULE DELAYED RELEASE completed ONE TAB. 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 [employer] smoking, year quit 2016 Ines Priceshantelle [employer]GER [employer] number of years as a smoker 24 a Ines Priceshantelle [employer] smoking, date started 7 Bonita Pricerodneyr [employer]NAGER [employer] smoking history, tot al pack/year 2015 Ines Priceshantelle [employer] smoking history, tot al pack/day 0.5 Ines Fenshantelle MANAGER [employer] cigarette use yes Ines Pricedread er [employer]NAGER [employer] smoking status Former smoker Ines Price dreader [employer] Exercise counseling Yes Ines Priceshantelle GARG drug use no Edis Griffith alcohol use no Edis Griffith passive cigarette sm melody exposure yes Edis Griffith smoking, year quit 2016 Edis Bey atty number of years as a smoker 24 a Edis Griffith smoking, date started 7 Edis Griffith smoking history, tot al pack/year 2015 Edis Griffith smoking history, tot al pack/day 0.5 Edis Griffith cigarette use yes Edis Griffith smoking status Former smoker Edis Cabral y drug use no Carolgerardo Matthews alcohol use no Carol Mtathews passive cigarette sm melody exposure yes Carol Matthews smoking, year quit 2016 Carol Will iams number of years as a smoker 24 a Carol Matthews smoking, date started 7 Carol Davon joanne smoking history, tot al pack/year 2015 Carol Byron smoking history, tot al pack/day 0.5 Carol Byron cigarette use yes Carolgerardo Matthews smoking status Former smoker Carolgerardo ryan drug use no Albert Martinri alcohol use no Albert Tawanna passive cigarette sm melody exposure yes Albert Tawnana smoking, year quit 2017 Albert sidhushannon number of years as a smoker 24 a Albert Martinri smoking, date started 7 Albert Tawanna smoking history, tot al pack/year 2015 Albert Lewisinari smoking history, tot al pack/day 0.5 Albert Lewisinari cigarette use yes Albert Martinr i smoking status Former smoker Albert Elizondo shannon social history reviewed E&M revi ewed - no changes required Albert Tawanna exercise type work out gym Carolgerardo Matthews Exercise counseling yes Carolgerardo brock physical exercise, f requency, days per week 2 /wk Carolgerardo Matthews caffeine use, averag e drinks per day 0 /d Carolgerardo Matthews passive cigarette sm melody exposure yes Carolgerardo Matthwes smoking, year quit 2016 Carol Kelton quiros number of years as a smoker 24 a Carol Byron smoking, date started 7 Carol W sharita smoking history, tot al pack/year 2015 Carolgerardo Matthews smoking history, tot al pack/day 0.5 Carolgerardo Matthews cigarette use yes Carolgerardo Matthews smoking status Former smoker Carol ryan social history E&M Marital Statu s: Wally ortiz: 2 children L taiwo with family/friends E thnicity: Smoking History: P atjennifer is a former smoker. Timi Ross social history reviewed E&M revi ewed - no changes required Timi Ross exercise type work out gym Carolgerardo Matthews Exercise counseling yes Carol brock physical exercise, f requency, days per week 2 /wk Carol Matthews caffeine use, averag e drinks per day 0 /d Carol Matthews passive cigarette sm melody exposure yes Carolgerardo Matthews smoking, year quit 2016 Carolgerardo quiros number of years as a smoker [...] E&M revi ewed - no changes required Jackie Chatterjee NP smoking history, tot al pack/year 2015 Hailey Porter number of grandchildren Venkatesh Carbone MD smoking, date started 7 Bonita Valdez [employer] smoking history, tot al pack/day 0.5 Ines Valdez [employer] cigarette use yes Ines mukherjee [employer]GER [employer] smoking status Former smoker Ines pepper [employer] Exercise counseling yes Ines Valdez NP social history E&M Marital Statu s: Wally ortiz: 2 children L taiwo with family/friends E thnicity: Smoking History: P brenda is a former smoker. Finn Johnson MD social history reviewed E&M revi ewed - no changes required Finn Johnson MD exercise type work out gym [place]essa [place] physical exercise, f requency, days per week 2 /wk [place] caffeine use, averag e drinks per day 0 /d Vanessa Ryan passive cigarette sm melody exposure yes Vanessa Ryan smoking, year quit 2016 Vanessa Ryan number of years as a smoker 24 a Vanessa Ryan smoking, date started 1992 Cather chandana Ryan smoking history, tot al pack/year 24 Vanessa Ryan smoking history, tot al pack/day 10/16 [place]essa [place] cigarette use yes Vanessa Ryan smoking status Former smoker Vanessa Ot is social history reviewed E&M revi ewed - no changes required Jae Miller social history E&M Marital Statu s: Wally ortiz: 2 children L taiwo with family/friends E thnicity: Smoking History: P brenda is a former smoker. Jae Miller exercise type work out gym Sintia gann physical exercise, f requency, days per week 2 /wk Sintia Eden caffeine use, averag e drinks per day 0 /d Sintia Eden passive cigarette sm melody exposure yes Sintia Eden smoking, year quit 2016 Sintia santana number of years as a smoker 24 a Sintia Eden smoking, date started 1992 David Eden smoking history, tot al pack/year 24 Sintia Eden smoking history, tot al pack/day 1/4 Sintia Eden cigarette use yes Sintia gann smoking status Former smoker Sintia aggarwal social history E&M Marital Statu s: Wally ortiz: 2 children L taiwo with family/friends E thnicity: Smoking History: Ashutosh gutierrez is a former smoker. Semaj Juanito social history reviewed E&M revi ewed - no changes required Semaj Solomon smoking status Former smoker Emmy Orozco exercise type work out gym [facility] physical exercise, f requency, days per week 2 /wk [facility] caffeine use, averag e drinks per day 0 /d [facility] passive cigarette sm melody exposure yes [facility] smoking, year quit 2016 [facility] number of years as a smoker 24 a [facility] smoking, date started 1992 Marleni [facility] smoking history, tot al pack/year 24 [facility] smoking history, tot al pack/day 10/16 [facility] cigarette use yes [facility] smoking status Former smoker [facility] social history reviewed E&M revi ewed - no changes required [facility] social history reviewed E&M revi ewed - no changes required Venkatesh Carbone MD exercise type work out gym [facility] physical exercise, f requency, days per week 2 /wk Quyen Slusser caffeine use, averag e drinks per day 0 /d Quyen Slusser passive cigarette sm melody exposure yes Quyen Slusser smoking, year quit 2016 Quyen Sl usser number of years as a smoker 24 a Quyen Slusser smoking, date started 1992 Quyen Slusser smoking history, tot al pack/year 24 Quyen Slusser smoking history, tot al pack/day 10/16 Quyen Slusser cigarette use yes Quyen Sljuwan smoking status Former smoker Quyen Ruhs number of grandchildren Venkatesh Pruitt social history reviewed E&M revi ewed - no changes required Conrad Pruitt exercise type work out gym Sintia Lawrence physical exercise, f requency, days per week 2 /wk Sintia Eden caffeine use, averag e drinks per day 0 /d Sintia Eden passive cigarette sm melody exposure yes Sintia Eden smoking, year quit 2016 Sintia santana number of years as a smoker 24 a Sintia Eden smoking, date started 1992 David Eden smoking history, tot al pack/year 24 Sintia Eden smoking history, tot al pack/day 1/4 Sintia Eden cigarette use yes Sintia Lawrence smoking status Former smoker Sintia aggarwal social history E&M Marital Statu s: Wally ortiz: 2 children L taiwo with family/friends E thnicity: Smoking History: Ashutosh gutierrez is a former smoker. Finn Johnson MD social history reviewed E&M revi ewed - no changes required Finn Johnson MD exercise type work out gym [facility] physical exercise, f requency, days per week 2 /wk Leyla Frances alcohol use, average drinks per day none Leyla Frances alcohol use no Leyla Frances caffeine use, averag e drinks per day 0 /d Leyla Frances drug use no Leyla Frances passive cigarette sm melody exposure yes Leyla Frances smoking, year quit 2016 Finn weldon MD number of years as a smoker 24 a Leyla Frances smoking, date started 1992 Leyla Frances cigarette use yes Leyla Frances smoking status Former smoker Leyla Frances number of grandchildren Juan Manuel Toledo MD social history reviewed E&M revi ewed - no changes required Juan Manuel Toledo MD exercise type work out gym Alicja lucero physical exercise, f requency, days per week 2 /wk Alicja Townsend alcohol use, average drinks per day none Alicja Townsend alcohol use no Alicja Kay er caffeine use, averag e drinks per day 0 /d Alicja Townsend drug use no Alicja Kay levi passive cigarette sm melody exposure yes Alicja Townsend smoking, year quit 2014 Alicja Vera melony number of years as a smoker 24 a Alicja Townsend smoking, date started 1992 Alicja Townsend smoking history, tot al pack/year 24 Alicja Townsend smoking history, tot al pack/day 1/4 Alicja Townsend cigarette use yes Alicja lucero smoking status Former smoker Alicja garzajazmine number of grandchildren Lynette Salazar MD social history reviewed E&M revi ewed - no changes required Lynette Salazar MD social history E&M Marital Statu s: C hildren: 2 children L taiwo with family/friends E thnicity: Smoking History: P atient currently smokes every day. P atient has been counseled to quit. Lynette Salazar MD exercise type work out gym [facility] physical exercise, f requency, days per week 2 /wk [facility] alcohol use, average drinks per day none [facility] alcohol use no [facility] [place] caffeine use, averag e drinks per day 0 /d [place] drug use no [facility] [place] smoking/tobacco cess ation, patient education and counseling yes Una Diaz passive cigarette sm melody exposure yes Un[facility] [place] smoking, year quit 2014 Una bonilla number of years as a smoker 24 a [facility] [place] smoking, date started 1992 Sera anderson [place] smoking history, tot al pack/year 24 [place] smoking history, tot al pack/day 1/4 [place] cigarette use yes Una [place] smoking status Current every day smoker Alma gutierres [place] smoking history, tot al pack/year 24 Laurie Harrison RN number of years as a smoker 24 a Finn Johnson MD social history reviewed E&M revi ewed - no changes required Finn Johnson MD social history E&M Marital Statu s: C hildren: 2 children L taiwo with family/friends E thnicity: Smoking History: P atjennifer currently smokes every day. P atjennifer has been counseled to quit. Finn Johnson MD exercise type work out gym [facility] [place] [facility] physical exercise, f requency, days per [...] 2014 Caroline Dominguez smoking, date started 1992 Kandy Dominguez smoking history, tot al pack/day / Caroline Dominguez cigarette use yes Caroline Chaudhry heladio smoking status Current every day smoker Dariusz Dominguez smoking/tobacco cess ation, patient education and counseling yes Finn Johnson MD social history E&M Marital Statu s: Wally ortiz: 2 children L taiwo with family/friends E thnicity: Smoking History: Ashutosh gutierrez currently smokes every day. Ashutosh gutierrez has been counseled to quit. Finn Johnson MD social history reviewed E&M revi ewed - no changes required Finn Johnson MD exercise type wprk out gym Caroline leija physical exercise, f requency, days per week 2 /wk CarolineXiomara Dominguez alcohol use, average drinks per day none CarolineXiomara Chaudhryenson alcohol use no Caroline Gutierrez [place] caffeine use, averag e drinks per day no Caroline Alberto drug use no Caroline Gutierrez sofiajosé passive cigarette sm melody exposure yes Caroline Dominguez smoking, year quit 2014 Caroline Dominguez number of years as a smoker 10 years or m ore Caroline Dominguez smoking, date started 1992 LaurieLee yu Dominguez smoking history, tot al pack/year 21 Caroline Dominguez smoking history, tot al pack/day 10/16 Caroline Dominguez cigarette use yes Caroline Isidoro allenjosé smoking status Current every day smoker Bimal Johnson MD social history E&M Marital Statu s: Wally ortiz: 2 children L taiwo with family/friends E thnicity: Ashutosh gutierrez currently smokes every day. Smoking History: Ashutosh gutierrez is a former smoker. Juan Manuel Toledo MD social history reviewed E&M i ewed - no changes required Juan Manuel Toledo MD smoking, year quit 2014 Gerri cramer exercise type wprk out gym Gerri Sutton [...] Gerri Sutton smoking history, tot al pack/day 10/16 Gerri Sutton cigarette use yes Gerri Sutton smoking status Former smoker Gerri Sutton social history reviewed E&M i ewed - no changes required Venkatesh Carbone [...] alcohol use, average drinks per day none [facility] caffeine use, averag e drinks per day no Gerri [facility] drug use no Gerri [facility] passive cigarette sm melody exposure yes [facility] smoking/tobacco cess ation, patient education and counseling yes Gerri Patiño number of years as a smoker 10 years or m ore Gerri Patiño smoking, date started 1992 Stevenson carrillo Patiño smoking history, tot al pack/year 21 Gerri Patiño smoking history, tot al pack/day 10/16 Gerri Kaylyn cigarette use yes Gerri Patiño smoking status current every day smoker S sachi Carbone MD exercise type wprk out gym Ernestine Blunt physical exercise, f requency, days per week [...] a smoker 10 years or m ore [facility] smoking, date started [facility] smoking history, tot al pack/year 21 Ernestine Blunt smoking history, tot al pack/day 10/16 Ernestine Blunt cigarette use yes Ernestine Blunt smoking status [facility] social history reviewed E&M benny gaines - no changes required [facility] exercise type wprk out gym Finn Johnson [...] smoking history, tot al pack/year 21 Finn Johnson MD smoking history, tot al pack/day 1/ Finn Johnson MD cigarette use yes Finn Johnson MD smoking status Current every day smoker G kirit Johnson MD social history reviewed E&M revi ewed - no changes required Finn Johnson MD smoking/tobacco cess ation, patient education and counseling yes Finn Johnson MD social history reviewed E&M reviewed Finn Johnson MD smoking history, tot al pack/year 21 Eunice Dmitry smoking/tobacco cess ation, patient education and counseling [...] Octavio Burks RN smoking, date started 1992 Alhaji leal RN smoking/tobacco cess ation, patient education [...] RN social history E&M Marital Statu s: Wally [...] a smoker 10 years or m ore [facility] smoking status Quit [employer] physical exercise, f requency, days per week no [employer] caffeine use, averag e drinks per day yes [facility] alcohol use, average drinks per day 1-3 drinks per day [facility] number of years as a smoker less than 10 years [facility] smoking status Quit [facility] social history E&M Marital Statu s: L taiwo with family/friends E thnicity: Finn Johnson MD social history E&M Marital Statu s: L taiwo with family/friends E thnicity: Finn Johnson MD smoking status Quit Finn Ambriz physical exercise, f requency, days per week no [employer] caffeine use, averag e drinks per day no [facility] alcohol use, average drinks per day none [facility] number of years as a smoker less than 10 years [facility] smoking status Smoker [facility] MENTAL STATUS Date Observation Value Provider assessment [...] person. Mood and affect are normal. Ernestine Hernandez assessment of judgme nt and insight E&M [...] Payer name Policy type / Coverage type [place] [employer] ID [facility] [id number] ADVANCE DIRECTIVES Name Date DISCUSSED - NO DECISION MADE TREATMENT PLAN Date Name Performer [id number],S,n o angina H er updated medication list for this problem includes: Lopressor 100 Mg Tablet (Metoprolol tartrate) ..... Take 1 tablet by mouth once a day take 1 tablet by mouth twice a day Diltiazem Hcl 60 Mg Tablet (Diltiazem hcl) ..... Take 1 tablet by mouth twice a day Albertasad Stacy [id number],S,asx Albert palma [id number],S, H er updated medication list for this problem includes: Lopressor 100 Mg Tablet (Metoprolol tartrate) ..... Take 1 tablet by mouth once a day take 1 tablet by mouth twice a day Diltiazem Hcl 60 Mg Tablet (Diltiazem hcl) ..... Take 1 tablet by mouth twice a day Albert Tawanna [id number],C,T he patient is using CPAP on a regular basis. The patient has been benefiting from therapy and should continue use. [facility] [id number],S,i ncrease lopressor to 100mg H er updated [...] Take 1 tablet by mouth every evening [facility] [id number],S,P t continues heaviness, throbbing, and swelling in [...] tablet by mouth every evening Albert Stacy [id number],W,P atient has left LE veous insufficiency, she is wearing stocking. reflux doppler ordered to be done and read by Dr. Johnson. O rders: P tracy 5-10 ([id number]) V enous Doppler Bilateral LE - Reflux ([id number]) Venktaesh Carbone MD [id number],S, Timi Robles i [id number],C,see #1 Timi chance [id number],C,H aving episodes of random CP and SOB, unclear if it is related to her HTN, or spasms, will start her on Diltiazem 60 mg BID for better BP control and see if her sxs improve. Timi Ross [id number],C,H aving episodes of random CP and SOB, unclear if it is related to her HTN, or spasms, will start her on Diltiazem 60 mg BID for better BP control and see if her sxs improve. & #13;BP today: 146/94 P rior BP: 139/85 (04/25/2023) Labs Reviewed: C reat: 1.10 (07/06/2020) Timi Ross [id number],C, E P STUDY 08/2019:: O perative Findings: [...] node physiology after final ablation. Timi Ross [id number],C,h aving week long complaints of intermittent chest [...] spoke with ER MD. Jackie Chatterjee NP [id number],S, L ast remote PPM check 04/18/22 battery 5 months device check 01/2022 1. yr 7 months will recheck device in 4 months Venkatesh Carbone MD [id number],S,h x quit, 2017 Venkatesh Carbone MD [id number],C,s lee study 2017. would recommend rechecking home sleep study given reported symptoms. SOB, daytime sleepiness, restless sleep, snoring. Venkatesh Carbone MD [id number],C,s /p ppm. Battery Longevity: 5 months remaining [...] mouth twice a day Venkatesh Carbone MD [id number],C, E P STUDY 08/2019:: O perative Findings: [...] mouth twice a day Venkatesh Carbone MD [id number],W,p t has not toprol xl 200mg daily [...] oximetry, respiratory flow rate. Venkatesh Carbone MD [id number],C, L ast remote PPM check 04/18/22 battery 5 months device check 01/2022 1. 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 Battery Longevity: 5 months remaining % Pacing: RA - 26.0% RV - 1.0% T echnician Summary: 5 months on battery. Appropriate device f unction. Lead trends appear stable. device check 01/2022 battery 1.7yrs, remote check 04/2022 5 months. will recheck device check in 4 months. Iens Valdez MANAGER [employer] [id number],C,s benjamin study 2017. would recommend rechecking home sleep study given reported symptoms. SOB, daytime sleepiness, restless sleep, snoring. Ines Villalobosdejah GARG [id number],Wally E P STUDY 08/2019:: O perative Findings: [...] by mouth twice a day Ines Valdez MANAGER [employer] [id number],C,p t has not toprol xl 200mg daily [...] oximetry, respiratory flow rate. Ines Valdez NP [id number],C,h x , 2016 Ines Valdez NP [id number],C, C omplaining of palpitations and SOB. BP markedly elevated. Will increase Metoprolol to 200 mg daily. Will obtain echo and stress test H er updated medication list for this problem includes: Metoprolol Succinate 200 Mg Tablet Extended Release 24 Hr (Metoprolol succinate) ..... 1 tablet once a day Shruthi Gallagher [id number],C, C omplaining of palpitations and SOB. BP markedly elevated. Will increase Metoprolol to 200 mg daily. Will obtain echo and stress test Shruthi Gallagher [id number],C, N o chest pain, complaining of palpitations H er updated medication list for this problem includes: Metoprolol Succinate 200 Mg Tablet Extended Release 24 Hr (Metoprolol succinate) ..... 1 tablet once a day Shruthi Gallagher [id number],C, W ill increase Metoprolol to 200 mg [...] succinate) ..... 1 tablet once a day Finn Johnson MD Cardiology: H er updated medication list for this problem includes: Lopressor 100 Mg Tablet (Metoprolol tartrate) ..... Take 1 tablet by mouth once a day take 1 tablet by mouth twice a day Diltiazem Hcl 60 Mg Tablet (Diltiazem hcl) ..... Take 1 tablet by mouth twice a day Rik Babak Michael BRANTLEY Cardiology: r esume metoprolol 50 bid Rik Rodriguez DO Cardiology: Her updated medication list for this problem includes: Lopressor 50 Mg Tablet (Metoprolol tartrate) ..... Take 1 tablet by mouth twice a day Hydrochlorothiazide 25 Mg Tablet (Hydrochlorothiazide) ..... Take 1 tablet by mouth once a day take 1 tablet by mouth every day BP today: 130/98 P rior BP: 124/72 (07/16/2024) Labs Reviewed: C reat: 1.00 (08/19/2023) C hol: 235 (08/19/2023) HDL: 49 (08/19/2023) LDL: 162 (08/19/2023) T (08/19/2023) Rik Babak Michael BRANTLEY Cardiology: C HOL: 235 (08/19/2023) LDL: 162 (08/19/2023) HDL: 49 (08/19/2023) T (08/19/2023) n ot currently on rx Rik Babak Michael BRANTLEY Cardiology: 1 E CHO: EF 65%, mild-mod MR will recheck ECHO Rik Rodriguez DO Electrophysiology: E CHO: EF 65%, mild-mod MR will recheck ECHO Ines Valdez NP Electrophysiology: c ath 5/29/24: increased LVEDP 22, normal coronaries, with some bridging of distal LAD, EF 70%. E CHO 07/2023 EF 65%, mild-mod MR. d evice check today: AV 31%, RV 0%, [...] dual AV node physiology after final ablation. Ines Valdez NP Electrophysiology:CH OL: 235 (08/19/2023) LDL: [...] 49 (08/19/2023) LDL: 162 (08/19/2023) T (08/19/2023) Edis Joseph Cardiology:cath sche duled 03/10 C P and SOB at minimal exertion [facility] Cardiology:cath scheduled 03/10 T homas Joseph Cardiology:Complains of worsening SOB upon exertion. Notices [...] tablet by mouth twice a day Albert Lewisinari Cardiology: E P STUDY 08/2019:: O perative [...] dual AV node physiology after final ablation. 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 She reports improvement of her sx, but still some heaviness of left left. Will schedule venaseal of left GSV. Will start 20mg crestor daily due to elevated LDL. BP is high today but reports at home it is well controlled, she will continue to monitor. [facility] Cardiology:no angina H er updated medication list for this problem includes: Lopressor 100 Mg Tablet (Metoprolol tartrate) ..... Take 1 tablet by mouth once a day take 1 tablet by mouth twice a day Diltiazem Hcl 60 Mg Tablet (Diltiazem hcl) ..... Take 1 tablet by mouth twice a day [facility] Cardiology:asx [facility] Cardiology: H er updated medication list for this problem includes: Lopressor 100 Mg Tablet (Metoprolol tartrate) ..... Take 1 tablet by mouth once a day take 1 tablet by mouth twice a day Diltiazem Hcl 60 Mg Tablet (Diltiazem hcl) ..... Take 1 tablet by mouth twice a day [facility] Cardiology:The patie nt is using CPAP on a regular basis. The patient has been benefiting from therapy and should continue use. [facility] Cardiology:increase lopressor to 100mg H er updated [...] Take 1 tablet by mouth every evening [facility] Cardiology:Pt contin ues heaviness, throbbing, and swelling [...] Dr. Johnson. O rders: P tracy 5-10 (CPT-19555) V enous Doppler Bilateral LE - Reflux (CPT-34922) Venkatesh Carbone MD Electrophysiology--billed as hig h follow up Timi Ross Electrophysiology--b illed [...] Electrophysiology--b illed as high follow up : Saqib Boykin STUDY 08/2019:: O perative Findings: P resenting [...] respiratory flow rate. Venkatesh Carbone MD Electrophysiology: Lilli ast remote PPM check 04/18/22 battery 5 [...] recheck device check in 4 months. Ines Villalobosdejah GARG Electrophysiology:sl eep study 2017. would recommend rechecking home sleep study given reported symptoms. SOB, daytime sleepiness, restless sleep, snoring. Ines Villalobosdejah GARG Electrophysiology: E P STUDY 08/2019:: O perative [...] tablet by mouth twice a day Ines Villalobosdejah GARG Electrophysiology:pt has not toprol xl 200mg [...] oximetry, respiratory flow rate. Ines Valdez NP Electrophysiology:hx quit, 2016 Ines Valdez NP Cardiology: C omplaining of palpitations and SOB. [...] (Metoprolol succinate) ..... One tab. daily [facility] Cardiology follow up :She continues to have palpitations and shortness of breath similar to previously described. Getting worse. Will proceed to testing and add echo, CXR, BNP and COVID-19 antibodies. [facility] Cardiology follow up :She continues to have palpitations and shortness of breath similar to previously described. Getting worse. Will proceed to testing and add echo, CXR, BNP and COVID-19 antibodies. [facility] Electrophysiology - completed : H er updated [...] One tab. daily Orders: S tress Routine (CPT-73957) Stress Nuc 10/2019: E TT Summary 1 . Normal exercise capacity 2 . Normal hemodynamic response to exercise 3 . No diagnostic ST or T changes 4 . No significant arrhythmias 5 . There is no evidence for exercise-induced myocardial ischemia . ............................................... ...................Brenda Melgar MD November 10, 2018 10:28 AM Semaj Solomon Electrophysiology - completed : O rders: F VC - 27846 (43748) F RC - 64386 (79925) D LCO - 39197 (85095) 9 9215 HIGH Complex (CPT-72654) Last PFTS 2016: C onclusions: M ild [...] Hour (Metoprolol succinate) ..... One tab. daily Felipejosé Juanito Electrophysiology - completed :EP STUDY 08/2019:: O [...] succinate) ..... One tab. daily Semaj Solomon Telehealth: H er updated medication list for this problem includes: Metoprolol Succinate Er 100 Mg Oral Tablet Extended Release 24 Hour (Metoprolol succinate) ..... One tab. daily Conrad Pruitt Telehealth: H er updated medication list for this problem includes: Hydrochlorothiazide 25 Mg Oral Tablet (Hydrochlorothiazide) ..... One tab daily Metoprolol Succinate Er 100 Mg Oral Tablet Extended Release 24 Hour (Metoprolol succinate) ..... One tab. daily Conrad Pruitt Telehealth: Ashutosh simonsr BP: 110/76 (08/25/2019) Labs Reviewed: C reat: 0.95 (08/10/2019) Her updated medication list for this problem includes: Hydrochlorothiazide 25 Mg Oral Tablet (Hydrochlorothiazide) ..... One tab daily Metoprolol Succinate Er 100 Mg Oral Tablet Extended Release 24 Hour (Metoprolol succinate) ..... One tab. daily Conrad Pruitt Telehealth: H er updated medication list for [...] CXR and PFT's after coronavirus epidemic. Jae Miller TeleHealth:In recent months she has been having palpitations and SOB with mild exertion. Echo and Myoview scan were normal last year. No arrhythmia noted on last PMR check from 11/08/2019. Will have arrhythmia center review her transmissions. Jae Angela Electrophysiology: T he following medications were removed [...] ablation procedure. Pt agrees with this plan. Conradkevin Pruitt Cardiology follow up :BP today: 122/80 P rior BP: 146/80 (04/01/2018) Her updated medication list for this problem includes: Hydrochlorothiazide 25 Mg Oral Tablet (Hydrochlorothiazide) ..... One tab daily Metoprolol Succinate Er 100 Mg Oral Tablet Extended Release 24 Hour (Metoprolol succinate) ..... One tab. daily [facility] Cardiology follow up :Orders: C omplete Echo (CPT-14615) S tress Exercise Cardiolite (CPT-48787) [facility] Cardiology follow up :Orders: C omplete Echo (CPT-17415) S tress Exercise Cardiolite (CPT-78208) [facility] Cardiology Follow up :Pacemaker function satisfactory. Juan Manuel Toledo MD Cardiology Follow up :Elevated in the office today; will continue to monitor. She stopped her lisinopril but continues metoprolol and HCTZ. Juan Manuel Toledo MD Cardiology Follow up :SOB with mild exertion. Likely related to deconditioning. Her pacemaker function is satisfactory. Her echocardiogram in 2015 showed normal LV size and systolic function [...] Cardiology:No complaints of head aches today. Jae Miller Cardiology:Denies any recurrence . Jae Angela Cardiology:Some dizziness but no syncope. Jae Angela Cardiology:Some dizziness but no syncope. Jae Angela Cardiology:STRONGLY ENCOURAGED TO STOP SMOKING; SMOKING CESSATION TECHNIQUES DISCUSSED. [facility] Cardiology:Pt compla ins of difficulty controlling BP. Will obtain a home sleep study and renal artery duplex. BP today: 155/99 P rior BP: 134/90 (02/05/2016) Her updated medication list for this problem includes: Lisinopril 20 Mg Tabs (Lisinopril) ..... One tablet daily <--- Dose increased Metoprolol Succinate 100 Mg Tb24 (Metoprolol succinate) ..... One tab. daily Jae Miller Cardiology:Denies chest pain. Leda Johnson MD Cardiology:BP [...] daily Diego Segura MD follow up: T bing following medications were removed from the medication list: Accuretic 20-12.5 Mg Tabs (Quinapril-hydrochlorothiazide) ..... Twotabs. daily Her updated medication list for this problem includes: Metoprolol Succinate 100 Mg Tb24 (Metoprolol succinate) ..... One tab. daily Diego Segura MD follow up: T bing following medications were removed from the medication [...] hr range of 51-118 with c/o of wgj-cykgijgc-szyvpnxkldezsxi-dizziness-blurred vision-near syncopy (07/10/2007) N uclear Stress Findings: [...] pressure of 35mmHG (06/11/2007) Orders: E KG (CPT-56739) Finn Johnson MD office visit: H er [...] hr range of 51-118 with c/o of roa-yarlrlcm-zhnyemvxmkwtsse-dizziness-blurred vision-near syncopy (07/10/2007) N uclear Stress Findings: [...] pressure of 35mmHG (06/11/2007) Orders: E KG (CPT-43378) Ray Mon MD cp: H er updated medication list for this problem includes: Metoprolol Tartrate 100 Mg Tabs (Metoprolol tartrate) ..... 1 tab bid Accuretic 20-12.5 Mg Tabs (Quinapril-hydrochlorothiazide) ..... Twotabs. daily Orders: R enal Artery Duplex (CPT-97203) Finn Johnson MD cp: H er updated medication list for this problem includes: Metoprolol Tartrate 100 Mg Tabs (Metoprolol tartrate) ..... 1 tab bid Accuretic 20-12.5 Mg Tabs (Quinapril-hydrochlorothiazide) ..... Twotabs. daily Finn Johnson MD PLEASE SIGN/CASSANDRA : O rders: D ual Chamber w/o Reprogramming (CPT-56542) Finn Johnson MD PLEASE SIGN/CASSANDRA : H [...] - Routi ne Stress Routine DLCO - 42020 FRC - 20219 FVC - 05140 Complete Echo Sleep Study Home Stress Routine [...] ne Complete Echo Stress Routine DLCO - 28444 FRC - 08120 FVC - 19612 X-Ray, Chest - Routi ne Stress Routine DLCO - 94732 FRC - 38343 FVC - 61761 X-Ray, Chest - Routi ne DLCO - 02854 FRC - 91913 FVC - 21431 PARTIAL THROMBOPLAST IN TIME, ACTIVATED BASIC METABOLIC PANE L W/EGFR CBC (INCLUDES DIFF/P LT) DLCO - 41794 FRC - 32595 FVC - 48678 CT Cardiac with cont rast (Pre-Ablation) ABLATION w/ Anesthes ia Stress Exercise Card iolite Complete Echo Complete Echo Other Test Renal Artery Duplex Sleep Study Home Complete Echo Carotid Duplex Bilat eral DLCO - 17503 FRC - 23762 FVC - 47648 COMPREHENSIVE METABO LIC PANEL W/EGFR D-DIMER, QUANTITATIV E CBC (H/H, RBC, INDIC ES, WBC, PLT) STR - Adenosine ECP Commercial Complete Echo Carotid Duplex Bilat eral STR - Nuclear Complete Echo STR - Nuclear Renal Artery Duplex Complete Echo Renal Artery Duplex Dual Chamber w/o Rep rogramming Complete Echo Phone 5-10 HISTORY OF PROCEDURES Procedure Date Procedure Name Provider Procedure Notes S tatus EKG Rik Rodriguez DO completed Schedule Followup Venkatesh de la o MD [address] CARBONE completed EKG Venkatesh ryan MD completed EKG Finn Johnson MD completed EKG Venkatesh ryan MD completed EKG Finn Johnson MD completed Schedule Followup Venkatesh de la o MD [address] Carbone with device check completed EKG Finn Johnson MD completed FVC / MVV with bronchodilator - 96089 Finn Johnson MD completed FRC - 90708 Finn Johnson MD completed SpO2 w/o 6min walk/titration Finn Johnson MD completed DLCO - 81469 Finn Johnson MD complete d EKG Venkatesh ryan MD completed Protime Ray Mon MD completed EKG Venkatesh ryan MD completed Pacemaker Interrogation, Remote (Tech) Finn Johnson MD INTERROGATION REMOTE </90 D MIXING PICKER TENDER REVIEW completed Pacemaker Interrogation, Remote (Prof) Finn Johnson MD INTERROGATION EVAL REMOTE </90 D 1/2/SENIOR ORACLE DEVELOPER LEAD P completed ICM Interrogation, Remote (Prof) Finn Johnson MD INTERROGATION EVAL REMOTE </30 D CV MNTR SYS completed ICM Interrogation, Remote (Tech) Finn Johnson MD INTERROGATION EVAL REMOTE </30 D TECH REVIEW completed Pacemaker Interrogation, Remote (Tech) Finn Johnson MD INTERROGATION REMOTE </90 D MIXING PICKER TENDER REVIEW completed Pacemaker Interrogation, Remote (Prof) Finn Johnson MD INTERROGATION EVAL REMOTE </90 D 1/2/SENIOR ORACLE DEVELOPER LEAD P completed Cardiolite, 2 units Finn Johnson MD c ompleted SPECT Images Aren Alexander MD completed Stress EKG Brenda Melgar MD completed Pacemaker Interrogation, Remote (Tech) Juan Manuel Toledo MD INTERROGATION REMOTE </90 D MIXING PICKER TENDER REVIEW completed Pacemaker Interrogation, Remote (Prof) Juan Manuel Toledo MD INTERROGATION EVAL REMOTE </90 D 1/2/SENIOR ORACLE DEVELOPER LEAD P completed Pacemaker Interrogation, Remote (Tech) Juan Manuel Toledo MD INTERROGATION REMOTE </90 D MIXING PICKER TENDER REVIEW completed Pacemaker Interrogation, Remote (Prof) Juan Manuel Toledo MD INTERROGATION EVAL REMOTE </90 D 1/2/SENIOR ORACLE DEVELOPER LEAD P completed EKG Juan Manuel Toledo MD complet ed Pacemaker Interrogation, Remote (Tech) Finn Johnson MD INTERROGATION REMOTE </90 D MIXING PICKER TENDER REVIEW completed Pacemaker Interrogation, Remote (Prof) Finn Johnson MD INTERROGATION EVAL REMOTE </90 D 1/2/SENIOR ORACLE DEVELOPER LEAD P completed Pacemaker Interrogation, Remote (Tech) Finn Johnson MD INTERROGATION REMOTE </90 D MIXING PICKER TENDER REVIEW completed Pacemaker Interrogation, Remote (Prof) Finn Johnson MD INTERROGATION EVAL REMOTE </90 D 1/2/SENIOR ORACLE DEVELOPER LEAD P completed EKG Lynette Salazar MD completed SNOMED-CT: [id number] Current Medications Documented Lynette Salazar MD completed Pacemaker Interrogation, Remote (Tech) Finn Johnson MD INTERROGATION REMOTE </90 D MIXING PICKER TENDER REVIEW completed Pacemaker Interrogation, Remote (Prof) Finn Johnson MD INTERROGATION EVAL REMOTE </90 D 1/2/SENIOR ORACLE DEVELOPER LEAD P completed Pacemaker Interrogation, Remote (Tech) Finn Johnson MD INTERROGATION REMOTE </90 D MIXING PICKER TENDER REVIEW completed Pacemaker Interrogation, Remote (Prof) Finn Johnson MD INTERROGATION EVAL REMOTE </90 D 1/2/SENIOR ORACLE DEVELOPER LEAD P completed SNOMED-CT: 267853178 Smoking Cessation Counseling Finn Johnson MD completed EKG Finn Johnson MD completed SNOMED-CT: 111194928506989 Current Medications Documented Finn Johnson MD completed Pacemaker Interrogation, Remote (Tech) Finn Johnson MD INTERROGATION REMOTE </90 D MIXING PICKER TENDER REVIEW completed Pacemaker Interrogation, Remote (Prof) Finn Johnson MD INTERROGATION EVAL REMOTE </90 D 1/2/SENIOR ORACLE DEVELOPER LEAD P completed Pacemaker Interrogation, Remote (Tech) Finn Johnson MD INTERROGATION REMOTE </90 D MIXING PICKER TENDER REVIEW completed Pacemaker Interrogation, Remote (Prof) Finn Johnson MD INTERROGATION EVAL REMOTE </90 D 1/2/SENIOR ORACLE DEVELOPER LEAD P completed Pacemaker Interrogation, Remote (Tech) Finn Johnson MD INTERROGATION REMOTE </90 D MIXING PICKER TENDER REVIEW completed Pacemaker Interrogation, Remote (Prof) Finn Johnson MD INTERROGATION EVAL REMOTE </90 D 1/2/SENIOR ORACLE DEVELOPER LEAD P completed Pacemaker Interrogation, Remote (Tech) Finn Johnson MD INTERROGATION REMOTE </90 D MIXING PICKER TENDER REVIEW completed Pacemaker Interrogation, Remote (Prof) Finn Johnson MD INTERROGATION EVAL REMOTE </90 D 1/2/SENIOR ORACLE DEVELOPER LEAD P completed BLOOD COUNT HEMOGLOBIN Finn Johnson MD completed FVC - 51110 Finn Johnson MD completed FRC - 40244 Finn Johnson MD completed DLCO - 43832 Finn Johnson MD complete d SNOMED-CT: 721333990 Smoking Cessation Counseling Finn Johnson MD completed SNOMED-CT: 195290071818003 Current Medications Documented Finn Johnson MD completed Pacemaker Interrogation, Remote (Tech) Juan Manuel Toledo MD INTERROGATION REMOTE </90 D MIXING PICKER TENDER REVIEW completed Pacemaker Interrogation, Remote (Prof) Juan Manuel Toledo MD INTERROGATION EVAL REMOTE </90 D 1/2/SENIOR ORACLE DEVELOPER LEAD P completed Pacemaker Interrogation, Remote (Tech) Finn Johnson MD INTERROGATION REMOTE </90 D MIXING PICKER TENDER REVIEW completed Pacemaker Interrogation, Remote (Prof) Finn Johnson MD INTERROGATION EVAL REMOTE </90 D 1/2/SENIOR ORACLE DEVELOPER LEAD P completed SNOMED-CT: 835290937 Smoking Cessation Counseling Juan Manuel Toledo MD completed SNOMED-CT: 06925052 Physical Exam, Performed: Pulse Exam of Foot Juan Manuel Toledo MD completed EKG Juan Manuel Toledo MD complet ed SNOMED-CT: [id number] Current Medications Documented Juan Manuel Toledo MD completed Pacemaker Interrogation, Remote (Tech) Finn Johnson MD INTERROGATION REMOTE </90 D MIXING PICKER TENDER REVIEW completed Pacemaker Interrogation, Remote (Prof) Finn Johnson MD INTERROGATION EVAL REMOTE </90 D 1/2/SENIOR ORACLE DEVELOPER LEAD P completed Pacemaker Interrogation, Remote (Tech) Finn Johnson MD INTERROGATION REMOTE </90 D MIXING PICKER TENDER REVIEW completed Pacemaker Interrogation, Remote (Prof) Finn Johnson MD INTERROGATION EVAL REMOTE </90 D 1/2/SENIOR ORACLE DEVELOPER LEAD P completed EKG Venkatesh ryan MD completed Pacemaker Interrogation, Remote (Tech) Finn Johnson MD INTERROGATION REMOTE </90 D MIXING PICKER TENDER REVIEW completed Pacemaker Interrogation, Remote (Prof) Finn Johnson MD INTERROGATION EVAL REMOTE </90 D 1/2/SENIOR ORACLE DEVELOPER LEAD P completed ICM Interrogation, Remote (Prof) Finn Johnson MD INTERROGATION EVAL REMOTE </30 D CV MNTR SYS completed Pacemaker Interrogation, Remote (Tech) Finn Johnson MD INTERROGATION REMOTE </90 D MIXING PICKER TENDER REVIEW completed Pacemaker Interrogation, Remote (Prof) Finn Johnson MD INTERROGATION EVAL REMOTE </90 D 1/2/SENIOR ORACLE DEVELOPER LEAD P completed EKG Finn Johnson MD completed Pacemaker Interrogation, Remote (Tech) Finn Johnson MD INTERROGATION REMOTE </90 D MIXING PICKER TENDER REVIEW completed Pacemaker Interrogation, Remote (Prof) Finn Johnson MD INTERROGATION EVAL REMOTE </90 D 1/2/SENIOR ORACLE DEVELOPER LEAD P completed Pacemaker Interrogation, Remote (Tech) Finn Johnson MD INTERROGATION REMOTE </90 D MIXING PICKER TENDER REVIEW completed Pacemaker Interrogation, Remote (Prof) Finn Johnson MD INTERROGATION EVAL REMOTE </90 D 1/2/SENIOR ORACLE DEVELOPER LEAD P completed EKG Finn Johnson MD [...]
--- OUTSIDE RECORDS SUMMARY | 2025-03-11 11:21 | XMS_ITS | Clinical Summary ---
Author Organization [facility] [employer] Address [address] [place] [address] Care Team Providers Care Missile And Missile Checkout Technician Name Role Phone Hayley Fonseca APRN-TAILING HAND Primary Care Provider [phone] Source Comments [facility],non-owned Affiliates and Associated Physician Practices is amultiple site organization consisting of ambulatory clinics and hospital sitesin [place], [place], [place] and [place]. This disclosure is being madepursuant to the Care Everywhere program and may not contain all information available regarding this patient. Last updated 18.[facility] [employer] Allergies Active Allergy Reactions Criticality Noted Date Comments Penicillins Rash High 06/26/2022 Medications * Be aware that medications may not be up to date on this document. Alwaysverify current medications with the patient. 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 1 10/30/2018 Supraventricular tachycardia 07/30/2019 Sleep apnea 10/10/2017 Sick sinus syndrome 01/27/2014 Essential (primary) hypertension 02/25/2008 Presence of cardiac pacemaker 10/22/2006 Resolved Problems Problem Noted Date Diagnosed Date Resolved Date Pre-op testing 07/23/2022 07/23/2022 Booth's neuroma of right foot 01/07/2020 07/23/2022 Encounters Date Type Department Care Team Description 02/15/2025 Travel from Last 3 Months Social History Tobacco Use Types Packs/Day Years Used Date Smoking Tobacco: Never Smokeless Tobacco: Never Alcohol Use Standard Drinks/Week Comments Not Currently 0 (1 standard drink = 0.6 oz pur e alcohol) Comments No Sex and Gender Information Value Date Recorded Sex Assigned at Not on file Legal Sex Female 4:31 PM CDT Gender Identity Not on file [...] 12:58 PM CDT Height 180.3 cm (5' 11) 07/23/2022 12: 58 PM CDT Body Mass Index 30.81 07/23/2022 12:58 PM CDT Plan of Treatment Upcoming Encounters Date Type Department Care Team (Late st Contact Info) Description 05/05/2025 1:30 PM CDT Office Visit [facility] - [address] [place] [address] Estrella Quintanilla MD [address] [place] [address] Health Maintenance Due Date Last Done Comments COLOGUARD (AGES 45-75) - COLON CA SCREENING 1974 COLON MONITORING 1974 COLONOSCOPY [...] of 2) 2024 COVID-19 VACCINE (1 - season) 2024 DEPRESSION SCREENING 10/13/2024 SCREENING FOR DIABETES 07/23/2025 07/23/2022 INFLUENZA VACCINE Completed 08/23/2024, , 08/17/2019, Additional history exists HIB VACCINE Aged Out No longer eligi ble based on patient's age to complete this topic HPV VACCINE Aged Out No longer eligi ble based on patient's age to complete this topic MENINGOCOCCAL (Group B) VACCINE SHARED DECISION-MAKING Aged Out No longer eligible based on patient's age to complete this topic MENINGOCOCCAL GROUPS A/C/Y/W VACCINE Aged Out No longer eligible based on patient's age to complete this topic Procedures Procedure Name Priority Date/Time Associated Diagnosis Comments COMPREHENSIVE METABOLIC PANEL STAT 07/23/2022 1:16 PM CDT Nonalcoholic fatty liver disease from Last 3 Months or Most Recently Relevant to Health Maintenance Results * (ABNORMAL) COMPREHENSIVE METABOLIC PANEL (07/23/2022 1:16 PM CDT) BUN 11 7 - 26 mg/dL 07/23/2022 1:51 PM CDT [facility] Creatinine 0.98(H) 0.56 - 0.96 mg/dL 07/23/2022 1:51 PM [facility] Sodium 137 136 - 145 mmol/L 07/23/2022 1:51 PM [facility] Potassium 3.9 3.5 - 4.5 mmol/L 07/23/2022 1:51 PM [facility] Chloride 106 98 - 107 mmol/L 07/23/2022 1:51 PM [facility] CO2 23 22 - 29 mmol/L 07/23/2022 1:51 PM [facility] Glucose 92 70 - 115 mg/dL 07/23/2022 1:51 PM [facility] Calcium 8.5 8.4 - 10.2 mg/dL 07/23/2022 1:51 PM [facility] Protein Total 6.8 6.0 - 8.3 g/dL 07/23/2022 1:51 PM [facility] Albumin 3.7 3.4 - 5.0 g/dL 07/23/2022 1:51 PM [facility] Bilirubin Total 0.5 0.2 - 1.2 mg/dL 07/23/2022 1:51 PM [facility] Alkaline Phosphatase 91 40 - 150 U/L 07/23/2022 1:51 PM [facility] ALT 41 5 - 55 U/L 07/23/2022 1:51 PM [facility] AST 30 5 - 34 U/L 07/23/2022 1:51 PM [facility] Anion Gap 12 8 - 18 07/23/2022 1:51 PM [facility] BUN/Creatinine Ratio 11 7 - 23 07/23/2022 1:51 PM [facility] Osmolality Calculated 283 270 - 300 mOsm/kg 07/23/2022 1:51 PM [facility] Albumin/Globulin Ratio 1.2 1.1 - 2.3 07/23/2022 1:51 PM [facility] eGFR by CKD-EPI 71(L) >=90 mL/min/1.7 3 m2 07/23/2022 1:51 PM [facility] Blood BLOOD SPECIMEN / Unknown Venipuncture / Unknown 07/23/2022 1:16 PM CDT 07/23/2022 1:23 PM CDT Mike Oh MD LAB - CHEMISTRY ORDERABLES Final Result Performing Organization Address [facility]/State/ZIP Co de Phone Number [facility] [address] [place] [address], [facility] [phone] from Last 3 Months or Most Recently Relevant to Health Maintenance Insurance [employer] Care Teams Missile And Missile Checkout Technician Relationship Specialty Start Date End Date Hayley Fonseca APRN-CNP [address] [address] PCP - General 12/18/21
[2025-03-11 11:30] VITALS: BP 142/99; PULSE 75; RESP 18; TEMP 36.6
--- OUTSIDE RECORDS SUMMARY | 2025-03-11 14:22 | XMS_ITS | Clinical Summary ---
Author Organization [facility] Address [address] [place] [address] Care Team Providers Care Conductor Pullman Name Role Phone Venkatesh Carbone MD Unavailable [phone] Lupe Grey NP Primary Care Provider [phone] Allergies Active Allergy Reactions Criticality Noted Date [...] Description 01/06/2025 2:45 PM CDT Office Visit [facility] Care at [address] [address] Dot Tarango NP Tachycardia (Primary [...] on file Legal Sex Female 10:14 AM [employer] Gender Identity Not on file Sexual Orientation [...] history exists Medical Devices Implanted Type Area Internet Database Specialist Device Identifier Shelf Expiration Date Model / Serial / Lot [employer] Stent Venous Wall [id number] - [id number] Implanted:Qty: 1 on 08/21/2023 by Finn Johnson MD at [facility] [employer] 07/29/2024 [id number] / / [id number] [employer]bal Stent Venous Wall [id number] - [id number] Implanted:Qty: 1 on 08/21/2023 by Finn Johnson MD at [facility] [employer] 10/22/2024 [id number] / / [id number] Insurance [email or web address] [place] [email or web address] [place] Advance Directives For more information, please contact: [phone] * Full Code (Latest Code Status on File) Date Activated Date Inactivated Comments 08/21/2023 2:40 PM 08/21/2023 8:52 PM * Full Code Date Activated Date Inactivated Comments 08/17/2019 9:45 AM 08/17/2019 2:34 PM Care Teams Conductor Pullman Relationship Specialty [place] [id number] [address] [address] PCP - General Family Medicine 03/23/24 [place] [id number] [address] Consulting Physician Cardiology 08/17/19
--- OUTSIDE RECORDS SUMMARY | 2025-03-11 14:22 | XMS_ITS | Referral Summary ---
Author Organization [facility] Address [address] [place] [address] Care Team Providers Care Biological Technical Officer Name Role Phone Venkatesh Carbone MD Unavailable [phone] Lupe Grey NP Primary Care Provider [phone] Encounters Date Type Department Care Team Description 01/06/2025 2:45 PM CDT Office Visit [facility] at [address] [address] Dot Tarango NP Tachycardia (Primary [...] on file Legal Sex Female 10:14 AM CONSTRUCTION CONSULTANT Gender Identity Not on file Sexual Orientation [...] on file Medical Devices Implanted Type Area Waist Cutter Device Identifier Shelf Expiration Date Model / Serial / Lot [employer] Stent Venous Wall [id number] - [id number] Implanted:Qty: 1 on 08/21/2023 by Finn Johnson MD at [facility] [employer] 07/29/2024 [id number] / / [id number] [employer] Cristóbal Stent Venous Wall [id number] - [id number] Implanted:Qty: 1 on 08/21/2023 by Finn Johnson MD at [facility] [employer] 10/22/2024 [id number] / / [id number] [place] [employer] [place] Advance Directives For more information, please contact: [phone] * Full Code (Latest Code Status on File) Date Activated Date Inactivated Comments 08/21/2023 2:40 PM 08/21/2023 8:52 PM * Full Code Date Activated Date Inactivated Comments 08/17/2019 9:45 AM 08/17/2019 2:34 PM Care Teams Biological Technical Officer Relationship Specialty [place] [address] [address] [address] PCP - General Family Medicine 03/23/24 [place] [id number] [address] [address] Consulting Physician Cardiology 08/17/19
--- OUTSIDE RECORDS SUMMARY | 2025-03-11 14:23 | XMS_ITS | CONTINUITY OF CARE DOCUMENT ---
Author Name yonny blancas Address Unknown Organization [facility] Address [address] [place] [address] Phone [phone] Care Team Providers Care Crime Victim Specialist Name Role Phone Finn Johnson MD Unavailable [phone] Matilda CORNEJO, Almas Unavailable Almas Bernal Unavailable PROBLEMS Condition Status Date Provider Notes [...] In-person encounter Office Visit Rik Rodriguez DO [facility] - In-person encounter Office Visit Venkatesh Carbone MD [facility] Mitral regurgitation - In-person encounter Office Visit Finn Johnson MD [facility] - In-person encounter Office Visit Finn Johnson MD [facility] - In-person encounter Office Visit Finn Johnson MD [facility] Hyperlipidemia - In-person encounter Office Visit Finn Johnson MD [facility] Chronic venous hypertension (idiopathic) without complications of bilateral lower extremity - In-person encounter Office Visit Venkatesh Carbone MD [facility] HTN - 01/2010 MARIBELL DUP NEG - In-person encounter Office Visit Finn Johnson MD [facility] - In-person encounter Office Visit Venkatesh Carbone MD [facility] - In-person encounter Office Visit Venkatesh Carbone MD [facility] - In-person encounter Office Visit Finn Johnson MD [facility] Hypertension - In-person encounter Office Visit Finn Johnson MD [facility] HeadacheDizzinessExposure to SARS-associated coronavirus - In-person encounter Office Visit Venkatesh Carbone MD [facility] - In-person encounter Office Visit Finn Johnson MD [facility] S/P ABLATION 2018 - In-person encounter Office Visit Venkatesh Carbone MD [facility] - In-person encounter Office Visit Venkatesh Carbone MD [facility] SVT S/P ABLATION 08/2019 - In-person encounter Office Visit Finn Johnson MD [facility] Tobacco use quit - In-person encounter Office Visit Juan Manuel Toledo MD [facility] Numbness, left extremities - In-person encounter Office Visit Lynette Salazar MD [facility] Sleep apnea - In-person encounter Office Visit Finn Johnson MD [facility] SYNCOPECHEST PAIN - 04/2008 CATH NEGS/P ST KI DC PM GEN CHANGE 05/20/2011/ Gen change DC PM Biotronik 03/24/23 ( NOT MRI SAFE/SCHULTZ LEADS)Tobacco use quitPALPITATIONS - In-person encounter Office Visit Finn Johnson MD [facility] CAD-07/18 CAROTID NEGHTN - 01/2010 MARIBELL DUP NEG - In-person encounter Office Visit Juan Manuel Toledo MD [facility] - In-person encounter Office Visit Venkatesh Carbone MD [facility] Shortness of breathHeadache - In-person encounter Office Visit Finn Johnson MD [facility] - In-person encounter Office Visit Finn Johnson MD [facility] - In-person encounter Office Visit Finn Johnosn MD [facility] - In-person encounter Office Visit Finn Johnson MD [facility] - In-person encounter Office Visit Diego Segura MD [facility] - In-person encounter Office Visit Finn Johnson MD [facility] - In-person encounter Office Visit Brenda Melgar MD [facility] - In-person encounter Office Visit Finn Johnson MD [facility] - In-person encounter Office Visit Finn Johnson MD [facility] - In-person encounter Office Visit RAHUL ROSALES MD [facility] - In-person encounter Office Visit Finn Johnson MD [facility] Tobacco use quit - In-person encounter Office Visit Ray Mon MD [facility] - In-person encounter Office Visit Finn Johnson MD [facility] - In-person encounter Office Visit Finn Johnson MD [facility] CHEST PAIN - 04/2008 CATH NEGS/P ST KI DC PM GEN CHANGE 05/20/2011/ Gen change DC PM Biotronik 03/24/23 ( NOT MRI SAFE/SCHULTZ LEADS) - In-person encounter Office Visit Finn Johnson MD [facility] - In-person encounter Office Visit Finn Johnson MD [facility] HTN-02/21ECHO EF 60-4/10ECHO EF 60-8/07ECHO EF [...] Eliana matute weight E&M 206.2 [lb_av] Eliana Albetr blood pressure, cuff size regular Ky cinthia [...] Mass Index (Ratio) 31.73 kg/m2 Nish as [place] blood pressure, cuff size large Ke rri Gruenenfelder blood pressure, diastolic 80 mm[Hg] Ke rri Gruenenfelder blood pressure, systolic 146 mm[Hg] Ker ri Gruenenfelder oxygen saturation, oximetry 100 % Alicja Gruenenfelder respiratory rate E&M 12 /min Ailcja G ruenenfelder pulse rate 75 /min Alicja Gruenenfe weight E&M 234 [lb_av] Alicja Kay height E&M 72 [in_i] Alicja Kay Body Mass Index (Ratio) 32.00 kg/m2 [facility] asad Tawanna blood pressure, diastolic 87 mm[Hg] Pallavi skylar Matthews blood pressure, systolic 123 mm[Hg] Any a Byron pulse rate 67 /min Carol Byron oxygen saturation, oximetry 94 % Carol Byron weight E&M 236 [lb_av] Carol Byron blood pressure, cuff size large An skylar Matthews height E&M 72 [in_i] Carol Matthews Body Mass Index (Ratio) 31.73 kg/m2 [facility] blood pressure, diastolic 104 mm[Hg] Kristen nkLog blood pressure, systolic 137 mm[Hg] Patricia kLog blood pressure, cuff size regular [facility] pressure, diastolic 104 mm[Hg] John rret blood pressure, systolic 137 mm[Hg] Cosme ret pulse rate 110 /min Vick oxygen saturation, oximetry 100 % Vick respiratory rate E&M 16 /min Vick weight E&M 234 [lb_av] Vick height E&M 72 [in_i] Vick Body Mass Index (Ratio) 31.33 kg/m2 [facility] asad Tawanna blood pressure, diastolic 109 mm[Hg] Pallavi skylar Matthews blood pressure, systolic 158 mm[Hg] Any a Byron oxygen saturation, oximetry 100 % Carol Matthews pulse rate 72 /min Caorl Byron weight E&M 231 [lb_av] Carol Byron blood pressure, cuff size large Pallavi cheng Byron height E&M 72 [in_i] Carol Byron blood pressure, diastolic 94 mm[Hg] Kristen Log blood pressure, systolic 146 mm[Hg] Patricia [facility] Body Mass Index (Ratio) 30.38 kg/m2 [facility] pressure, diastolic 94 mm[Hg] Pallavi cheng Byron blood pressure, systolic 146 mm[Hg] Any gerardo Byron pulse rate 66 /min Carol Byron oxygen saturation, oximetry 98 % Carol Byron weight E&M 224 [lb_av] Carol Byron blood pressure, cuff size large Pallavi cheng Byron height E&M 72 [in_i] [facility] Index (Ratio) 29.97 kg/m2 Timi [facility] blood pressure, diastolic 85 mm[Hg] Kristen Log blood pressure, systolic 139 mm[Hg] Patricia [facility] blood pressure, diastolic 85 mm[Hg] Татьяна austin Glidden blood pressure, systolic 139 mm[Hg] [facility] ernesto Mcodnald oxygen saturation, oximetry 100 % Adela Mcdonald [...] pressure, diastolic 114 mm[Hg] Stevo ramírez Fendler BAR FINISH OPERATOR blood pressure, systolic 186 mm[Hg] Lisset Pricedler BAR FINISH OPERATOR respiratory rate E&M 18 /min Tomy pond Fendler BAR FINISH OPERATOR pulse rate 92 /min Ines Pricedle r BAR FINISH OPERATOR weight E&M 216 [lb_av] Ines Pricedle r BAR FINISH OPERATOR height E&M 72 [in_i] Ines Pricedle r BAR FINISH OPERATOR Body Mass Index (Ratio) 29.29 kg/m2 Triny Gallagher blood pressure, diastolic 108 mm[Hg] Li nkLogic blood pressure, systolic 150 mm[Hg] Patricia kLogic blood pressure, diastolic 108 mm[Hg] Ca therine Ryan blood pressure, systolic 150 mm[Hg] Cat herine [place] oxygen saturation, oximetry 97 % Vanessa [place] respiratory rate E&M 16 /min Catheri ne [place] pulse rate 74 /min Vanessa [place] weight E&M 216 [lb_av] Vanessa Ryan blood pressure, cuff size regular Ca therine Ryan height E&M 72 [in_i] Vanessa [place] weight E&M 222 [lb_av] Meghann Lyon Body [...] Gerri Herman blood pressure, diastolic 126 mm[Hg] Ky neil Herman blood pressure, systolic 185 mm[Hg] [...] Mass Index (Ratio) 29.70 kg/m2 Anea thomas [facility] blood pressure, scanlon tolic, left arm 106 mm[Hg] Aneatris [facility] blood pressure, systolic, left arm 150 mm [Hg] Aneatris [facility] blood pressure, scanlon tolic, right arm 107 mm[Hg] Aneatris [facility] blood pressure, syst olic, right arm 154 mm[Hg] Aneatris [facility] blood pressure, diastolic 107 mm[Hg] An eatris [facility] blood pressure, systolic 154 mm[Hg] Ane atris [facility] pulse rate 73 /min Aneatris Brown oxygen saturation, oximetry 99 % Aneatris Brown respiratory rate E&M 17 /min Aneatri s [facility] weight E&M 219 [lb_av] Aneatris Brown Body [...] pressure, scanlon tolic, left arm 94 mm[Hg] [facility] Crisostomo blood pressure, systolic, left arm 137 mm [Hg] [facility], scanlon tolic, right arm 97 mm[Hg] [facility] blood pressure, syst olic, right arm 147 mm[Hg] [facility] blood pressure, diastolic 97 mm[Hg] [place] Crisostomo blood pressure, systolic 147 mm[Hg] [facility] pulse rate 65 /min [facility] oxygen saturation, oximetry 10 % [facility] respiratory rate E&M 16 /min [facility] weight E&M 200 [lb_av] [facility] Crisostomo blood pressure, diastolic 96 mm[Hg] He [...] pressure, systolic, sitting 128 mm[ Hg] Marianelanie Richmond blood pressure, scanlon tolic, supine, right arm 88 [facility] blood pressure, syst olic, supine, r arm 136 [facility] Jeromy blood pressure, scanlon tolic, left arm 88 mm[Hg] [facility] Jeromy blood pressure, systolic, left arm 128 mm [Hg] Marianelanie Richmond blood pressure, scanlon tolic, right arm 82 mm[Hg] Britducnie Jeromy blood pressure, syst olic, right arm 128 mm[Hg] [facility] Jeromy blood pressure, diastolic, supine 82 mm[H g] [facility] Richmond blood pressure, syst olic, supine E&M 128 mm[Hg] [facility] Richmond pulse rate 93 /min Christen Pedersond en oxygen saturation, oximetry 99 % [facility] Pedersonden respiratory rate E&M 18 /min Trinyduc [...] Not Estab. platelet count 297 X10E3/UL LinkLogic 335-790 2382/11 /07 red blood cell distribution width 12.9 [...] LinkLogic 3.5-5.2 sodium, serum 140 mmol/L LinkLogic 502-207 3817/11 /07 urea nitrogen/creatinine ratio, serum 16 LinkLogic [...] iron binding capacity, unsaturated 293 ug/dL LinkLogic 152-536 7191/09 /24 iron binding capacity, total 363 ug/dL [facility]Logic 763-648 6259/09 /24 alanine aminotransferase (SGPT), serum 30 1/L [facility]Logic 0-32 aspartate aminotransferase (SGOT), serum 22 1/L [facility]Logic 0-40 alkaline phosphatase, serum 132 1/L [facility] 39-117 High bilirubin, serum, total 0.3 mg/dL [facility]Logic 0.0-1.2 albumin/globulin ratio, serum 1.3 [facility] 1.2-2.2 globulin, serum 3.3 [facility]ic 1.5-4.5 albumin, serum 4.4 g/dL [facility]Logic 3.8-4.8 protein, total, serum 7.7 g/dL [facility]Logic 6.0-8.5 calcium, serum 9.7 mg/dL [facility] 8.[facility]-10.2 carbon dioxide, venous blood 24 mmol/L LinkLogic 20-29 chloride, serum 97 mmol/L [facility]Logic 96-106 potassium, serum 4.2 mmol/L LinkLogic 3.5-5.2 sodium, serum 138 mmol/L LinkLogic 057-098 1792/09 /24 urea nitrogen/creatinine ratio, serum 18 LinkLogic [...] Not Estab. platelet count 290 X10E3/UL LinkLogic 337-301 7808/09 /24 red blood cell distribution width 13.3 [...] LinkLogic 3.5-5.2 sodium, serum 140 mmol/L LinkLogic 439-089 4009/10 /29 urea nitrogen/creatinine ratio, serum 14 LinkLogic [...] Not Estab. platelet count 270 X10E3/UL LinkLogic 224-379 4131/10 /29 red blood cell distribution width 13.4 [...] Laurie Pyle RN bacteria, urine microscopy moderate [facility] RBC urine by microscopy 40-60 [facility] WBC urine on microscopy none [facility] leukocyte esterase, urine, by dipstick Negative [facility] urobilinogen, urine, semiquantitative (dipstick) normal [facility] nitrite, urine, semiquantitative Negative [facility] RBC, urine, dipstick 250 [facility] bilirubin, urine Negative [facility] ketones, urine, by test strip Negative [facility] glucose, urine, semiquantitative normal [facility] protein, urine, semiquantitative (dipstick) 25 [facility] pH, urine, semiquantitative 6.5 [facility] specific gravity, urine 1.020 [facility] urine color Yellow [facility] appearance, urine Slightly cloudy [facility] PTT patient 29.4 s [facility] prothrombin time (patient) 10.4 s [facility] international normalized ratio (INR) 1.0 [facility] creatinine, serum 0.96 mg/dL [facility] urea nitrogen, blood 15.1 mg/dL [facility] carbon dioxide, serum, total 26 mmol/L [facility] chloride, serum 103 mmol/L [facility] potassium, serum 4.0 mmol/L [facility] sodium, serum 137 mmol/L [facility] platelet count 259 10*3/uL [facility] hematocrit, blood 43.0 % [facility] hemoglobin, blood 14.8 g/dL [facility] erythrocyte (RBC) count 4.56 10*6/mm3 [facility] leukocyte count, blood 9.1 10*3/mm3 [facility] HISTORY OF MEDICATION USE Medication Status Instructions [...] ONE TAB. AT BEDTIME 02/24 - 03/02 Brneda Melgar MD EFFEXOR XR CAPSULE EXTENDED RELEASE 24 HOUR completed - 01/17 Octavio Burks RN metoprolol succinate 200 mg tablet extended release 24 hr completed 1 tablet once a day 01/17 - 06/28 Ines Priceshantelle GARG SOCIAL HISTORY Date Observation Value Provider drug use no Ines Pricedle r BAR FINISH OPERATOR alcohol use no Ines Pricerodney r BAR FINISH OPERATOR passive cigarette sm melody exposure yes Ines Pricerodneyr BAR FINISH OPERATOR smoking, year quit 2016 Ines Priceshantelle BAR FINISH OPERATOR number of years as a smoker 24 a Ines Priceshantelle BAR FINISH OPERATOR smoking, date started 7 Bonita Pricerodneyr BAR FINISH OPERATOR smoking history, tot al pack/year 2015 Ines Priceshantelle BAR FINISH OPERATOR smoking history, tot al pack/day 0.5 Ines Fenshantelle BAR FINISH OPERATOR cigarette use yes Ines Pricedread er BAR FINISH OPERATOR smoking status Former smoker Ines Price dreader BAR FINISH OPERATOR Exercise counseling Yes Ines Priceshantelle GARG drug [...] no Carolgerardo Matthews alcohol use no Carol Matthews passive cigarette sm melody exposure [...] exposure yes Albert Tawanna smoking, year quit 2017 Albert sidhushannon number [...] yes Carolgerardo Matthews smoking, year quit 2016 Carol Kelton [...] MD smoking, date started 7 Bonita Valdez BAR FINISH OPERATOR smoking history, tot al pack/day 0.5 Ines Valdez BAR FINISH OPERATOR cigarette use yes Ines mukherjee BAR FINISH OPERATOR smoking status Former smoker Ines pepper BAR FINISH OPERATOR Exercise counseling yes Ines Valdez NP social history E&M Marital Statu s: Wally ortiz: 2 children L taiwo with family/friends E thnicity: Smoking History: P brenda is a former smoker. Finn Johnson MD social history reviewed E&M revi ewed - no changes required Finn Johnson MD exercise type work out gym Vanessa [place] physical exercise, f requency, days per week 2 /wk Vanessa [place] caffeine use, averag e drinks per day 0 /d Vanessa Ryan passive cigarette sm melody exposure yes Vanessa Ryan smoking, year quit 2016 Vanessa Ryan number of years as a smoker 24 a Vanessa Ryan smoking, date started 1992 Cather chandana Ryan smoking history, tot al pack/year 24 Vanessa Ryan smoking history, tot al pack/day 10/16 Vanessa [place] cigarette use yes Vanessa Ryan smoking status [...] Emmy Orozco exercise type work out gym [facility] physical exercise, f requency, days per week 2 /wk [facility] caffeine use, averag e drinks per day 0 /d [facility] passive cigarette sm melody exposure yes [facility] smoking, year quit 2016 [facility] number of years as a smoker 24 a [facility] smoking, date started 1992 Marleni [facility] smoking history, tot al pack/year 24 [facility] smoking history, tot al pack/day 10/16 [facility] cigarette use yes [facility] smoking status Former smoker [facility] social history reviewed E&M revi ewed - no changes required [facility] social history reviewed E&M revi ewed - no changes required Venkatesh Carbone MD exercise type work out gym [facility] physical exercise, f requency, days per [...] Quyen Sljuwan smoking status Former smoker Quyen Rush number of grandchildren Venkatesh Pruitt social history [...] Johnson MD exercise type work out gym [facility] physical exercise, f requency, days [...] Salazar MD exercise type work out gym [facility] physical exercise, f requency, days per week 2 /wk [facility] alcohol use, average drinks per day none [facility] alcohol use no [facility] [place] caffeine use, averag e drinks per day 0 /d [place] drug use no [facility] [place] smoking/tobacco cess ation, patient education and counseling yes Una Diaz passive cigarette sm melody exposure yes [facility] [place] smoking, year quit 2014 Una bonilla number of years as a smoker 24 a [facility] [place] smoking, date started 1992 Sera anderson [place] smoking history, tot al pack/year 24 [place] smoking history, tot al pack/day 1/4 [place] cigarette use yes [facility] [place] smoking status Current every day smoker Alma gutierres [place] smoking history, tot al pack/year 24 Laurie [...] MD exercise type work out gym Jae Adin alcantar physical exercise, f requency, days per [...] Caroline Dominguez smoking, year quit 2014 Caroline Domingeuz number of years as a smoker 10 years or m ore Caroline Dominguez smoking, date started 1992 LaurieLee yu Dominguez smoking history, tot al pack/year 21 Caroline Dominguez smoking history, tot al pack/day 10/16 Caroline Dominguez cigarette use yes Craoline Isidoro allenjosé smoking status Current every day [...] alcohol use, average drinks per day none [facility] caffeine use, averag e drinks per day no Gerri [facility] drug use no Gerri [facility] passive cigarette sm melody exposure yes [facility] smoking/tobacco cess ation, patient education and counseling [...] a smoker 10 years or m ore [facility] smoking, date started 1992 [facility] Blunt smoking history, tot al pack/year 21 Ernestine [facility] smoking history, tot al pack/day 10/16 Ernestine [facility] cigarette use yes Ernestine [facility] smoking status [facility] social history reviewed E&M benny gaines - no changes required [facility] exercise type wprk out gym Finn Johnson [...] than 10 years LinkLogic smoking status Quit [facility] social history E&M Marital Statu s: L [...] than 10 years LinkLog smoking status Smoker [facility] MENTAL STATUS Date Observation Value Provider assessment [...] Payer name Policy type / Coverage type [place] red green party ID [facility] [id number] ADVANCE DIRECTIVES Name Date DISCUSSED - NO DECISION MADE TREATMENT PLAN Date Name Performer [id number],S,n o angina H er updated medication list for this problem includes: Lopressor 100 Mg Tablet (Metoprolol tartrate) ..... Take 1 tablet by mouth once a day take 1 tablet by mouth twice a day Diltiazem Hcl 60 Mg Tablet (Diltiazem hcl) ..... Take 1 tablet by mouth twice a day Albertasad Stacy [id number],S,asx Albert palma [id number],S, H er updated medication list for this problem includes: Lopressor 100 Mg Tablet (Metoprolol tartrate) ..... Take 1 tablet by mouth once a day take 1 tablet by mouth twice a day Diltiazem Hcl 60 Mg Tablet (Diltiazem hcl) ..... Take 1 tablet by mouth twice a day Albert Tawanna [id number],C,T he patient is using CPAP on a regular basis. The patient has been benefiting from therapy and should continue use. [facility] [id number],S,i ncrease lopressor to 100mg H er updated [...] Take 1 tablet by mouth every evening [facility] [id number],S,P t continues heaviness, throbbing, and swelling in [...] tablet by mouth every evening Albert Stacy [id number],W,P atient has left LE veous insufficiency, she is wearing stocking. reflux doppler ordered to be done and read by Dr. Johnson. O rders: P tracy 5-10 (CPT-19947) V enous Doppler Bilateral LE - Reflux (CPT-11926) Venkatesh Carbone MD [id number],S, Timi Robles i [id number],C,see #1 Timi chance [id number],C,H aving episodes of random CP and SOB, unclear if it is related to her HTN, or spasms, will start her on Diltiazem 60 mg BID for better BP control and see if her sxs improve. Timi Ross [id number],C,H aving episodes of random CP and SOB, unclear if it is related to her HTN, or spasms, will start her on Diltiazem 60 mg BID for better BP control and see if her sxs improve. & #13;BP today: 146/94 P rior BP: 139/85 (04/25/2023) Labs Reviewed: C reat: 1.10 (07/06/2020) Timi Ross [id number],C, E P STUDY 08/2019:: O perative Findings: [...] node physiology after final ablation. Timi Ross [id number],C,h aving week long complaints of intermittent chest [...] spoke with ER MD. Jackie Chatterjee NP [id number],S, L ast remote PPM check 04/18/22 battery 5 months device check 01/2022 1. yr 7 months will recheck device in 4 months Venkatesh Carbone MD [id number],S,h x quit, 2017 Venkatesh Carbone MD [id number],C,s lee study 2017. would recommend rechecking home sleep study given reported symptoms. SOB, daytime sleepiness, restless sleep, snoring. Venkatesh Carbone MD [id number],C,s /p ppm. Battery Longevity: 5 months remaining [...] mouth twice a day Venkatesh Carbone MD [id number],C, E P STUDY 08/2019:: O perative Findings: [...] mouth twice a day Venkatesh Carbone MD [id number],W,p t has not toprol xl 200mg daily [...] oximetry, respiratory flow rate. Venkatesh Carbone MD [id number],C, L ast remote PPM check 04/18/22 battery 5 months device check 01/2022 1. yr 7 months will recheck device in 4 months Ines Valdez BAR FINISH OPERATOR [id number],C,s /p ppm. Battery Longevity: 5 months remaining % Pacing: RA - 26.0% RV - 1.0% T echnician Summary: 5 months on battery. Appropriate device f unction. Lead trends appear stable. device check 01/2022 battery 1.7yrs, remote check 04/2022 5 months. will recheck device check in 4 months. Ines Valdez BAR FINISH OPERATOR [id number],C,s benjamin study 2017. would recommend rechecking home sleep study given reported symptoms. SOB, daytime sleepiness, restless sleep, snoring. Ines Villalobosdejah GARG [id number],Wally E P STUDY 08/2019:: O perative Findings: [...] by mouth twice a day Ines Valdez BAR FINISH OPERATOR [id number],C,p t has not toprol xl 200mg daily [...] oximetry, respiratory flow rate. Ines Valdez NP [id number],C,h x , 2016 Ines Valdez NP [id number],C, C omplaining of palpitations and SOB. BP markedly elevated. Will increase Metoprolol to 200 mg daily. Will obtain echo and stress test H er updated medication list for this problem includes: Metoprolol Succinate 200 Mg Tablet Extended Release 24 Hr (Metoprolol succinate) ..... 1 tablet once a day Shruthi Gallagher [id number],C, C omplaining of palpitations and SOB. BP markedly elevated. Will increase Metoprolol to 200 mg daily. Will obtain echo and stress test Shruthi Gallagher [id number],C, N o chest pain, complaining of palpitations H er updated medication list for this problem includes: Metoprolol Succinate 200 Mg Tablet Extended Release 24 Hr (Metoprolol succinate) ..... 1 tablet once a day Shruthi Gallagher [id number],C, W ill increase Metoprolol to 200 mg [...] (08/19/2023) n ot currently on rx Rik Babka Michael [facility] Cardiology: 1 E CHO: EF [...] (08/19/2023) LDL: 162 (08/19/2023) T (08/19/2023) [facility]dis [facility]:cath sche duled 03/10 C P and SOB at minimal exertion [facility] Cardiology:cath scheduled 03/10 T homas [place] [facility]:Complains of worsening SOB upon exertion. Notices [...] AV node physiology after final ablation. [facility]: Will sta rt 20mg crestor [...] well controlled, she will continue to monitor. [facility] Cardiology:no angina H er updated medication list for this problem includes: Lopressor 100 Mg Tablet (Metoprolol tartrate) ..... Take 1 tablet by mouth once a day take 1 tablet by mouth twice a day Diltiazem Hcl 60 Mg Tablet (Diltiazem hcl) ..... Take 1 tablet by mouth twice a day [facility] Cardiology:asx [facility]iology: H er updated medication list for this problem includes: Lopressor 100 Mg Tablet (Metoprolol tartrate) ..... Take 1 tablet by mouth once a day take 1 tablet by mouth twice a day Diltiazem Hcl 60 Mg Tablet (Diltiazem hcl) ..... Take 1 tablet by mouth twice a day [facility] Cardiology:The patie nt is using CPAP on a regular basis. The patient has been benefiting from therapy and should continue use. [facility] Cardiology:increase lopressor to 100mg H er updated [...] Take 1 tablet by mouth every evening [facility] Cardiology:Pt contin ues heaviness, throbbing, and swelling [...] Dr. Johnson. O rders: P tracy 5-10 (CPT-33982) V enous Doppler Bilateral LE - Reflux (CPT-54218) Venkatesh Carbone MD Electrophysiology--billed as hig h [...] (Metoprolol succinate) ..... One tab. daily [facility] Card[facility] follow up :She continues to have palpitations and shortness of breath similar to previously described. Getting worse. Will proceed to testing and add echo, CXR, BNP and COVID-19 antibodies. [facility] Cardiology follow up :She continues to have palpitations and shortness of breath similar to previously described. Getting worse. Will proceed to testing and add echo, CXR, BNP and COVID-19 antibodies. [facility] Electrophysiology - completed : H er updated [...] One tab. daily Orders: S tress Routine (CPT-03917) Stress Nuc 10/2019: E TT Summary 1 . Normal exercise capacity 2 . Normal hemodynamic response to exercise 3 . No diagnostic ST or T changes 4 . No significant arrhythmias 5 . There is no evidence for exercise-induced myocardial ischemia . ............................................... ...................Brenda Melgar MD November 10, 2018 10:28 AM Semaj Solomon Electrophysiology - completed : O rders: F VC - 54472 (23091) F RC - 41575 (03887) D LCO - 54534 (51152) 9 9215 HIGH Complex (CPT-93016) Last PFTS 2016: C onclusions: M ild [...] Hour (Metoprolol succinate) ..... One tab. daily [facility] Cardiology follow up :Orders: C omplete Echo (CPT-74439) S tress Exercise Cardiolite (CPT-25810) [facility] Cardiology follow up :Orders: C omplete Echo (CPT-21571) S tress Exercise Cardiolite (CPT-82290) [facility] Follow up :Pacemaker function satisfactory. [...] TO STOP SMOKING; SMOKING CESSATION TECHNIQUES DISCUSSED. [facility] Cardiology:Pt compla ins of difficulty controlling [...] hr range of 51-118 with c/o of pct-wbjusnsa-fwqkmxbqiddefmb-dizziness-blurred vision-near syncopy (07/10/2007) N uclear Stress Findings: [...] pressure of 35mmHG (06/11/2007) Orders: E KG (CPT-27766) Finn Johnson MD office visit: H er [...] hr range of 51-118 with c/o of asf-cqmnuglu-fbkxsjeruosulgh-dizziness-blurred vision-near syncopy (07/10/2007) N uclear Stress Findings: [...] pressure of 35mmHG (06/11/2007) Orders: E KG (CPT-63000) Ray Mon MD cp: H er updated medication list for this problem includes: Metoprolol Tartrate 100 Mg Tabs (Metoprolol tartrate) ..... 1 tab bid Accuretic 20-12.5 Mg Tabs (Quinapril-hydrochlorothiazide) ..... Twotabs. daily Orders: R enal Artery Duplex (CPT-55234) Finn Johnson MD cp: H er updated medication list for this problem includes: Metoprolol Tartrate 100 Mg Tabs (Metoprolol tartrate) ..... 1 tab bid Accuretic 20-12.5 Mg Tabs (Quinapril-hydrochlorothiazide) ..... Twotabs. daily Finn Johnson MD PLEASE SIGN/CASSANDRA : O rders: D ual Chamber w/o Reprogramming (CPT-68178) Finn Johnson MD PLEASE SIGN/CASSANDRA : H [...] - Routi ne Stress Routine DLCO - 93333 FRC - 05122 FVC - 40459 Complete Echo Sleep Study Home Stress Routine [...] ne Complete Echo Stress Routine DLCO - 79985 FRC - 49325 FVC - 00488 X-Ray, Chest - Routi ne Stress Routine DLCO - 62647 FRC - 97215 FVC - 17549 X-Ray, Chest - Routi ne DLCO - 67830 FRC - 15894 FVC - 05501 PARTIAL THROMBOPLAST IN TIME, ACTIVATED BASIC METABOLIC PANE L W/EGFR CBC (INCLUDES DIFF/P LT) DLCO - 01604 FRC - 01269 FVC - 42894 CT Cardiac with cont rast (Pre-Ablation) ABLATION w/ Anesthes ia Stress Exercise Card iolite Complete Echo Complete Echo Other Test Renal Artery Duplex Sleep Study Home Complete Echo Carotid Duplex Bilat eral DLCO - 99353 FRC - 99283 FVC - 36447 COMPREHENSIVE METABO LIC PANEL W/EGFR D-DIMER, QUANTITATIV [...] completed FVC / MVV with bronchodilator - 80570 Finn Johnson MD completed FRC - 30967 Finn Johnson MD completed SpO2 w/o 6min walk/titration Finn Johnson MD completed DLCO - 02527 Finn Johnson MD complete d EKG Venkatesh ryan MD completed Protime Ray Mon MD completed EKG Venkatesh ryan MD completed Pacemaker Interrogation, Remote (Tech) Finn Johnson MD INTERROGATION REMOTE </90 D RECEIVABLE CLERK REVIEW completed Pacemaker Interrogation, Remote (Prof) Finn Johnson MD INTERROGATION EVAL REMOTE </90 D 1/2/OUTSIDE REPAIRER SPECIAL LEAD P completed ICM Interrogation, Remote (Prof) Finn Johnson MD INTERROGATION EVAL REMOTE </30 D CV MNTR SYS completed ICM Interrogation, Remote (Tech) Finn Johnson MD INTERROGATION EVAL REMOTE </30 D TECH REVIEW completed Pacemaker Interrogation, Remote (Tech) Finn Johnson MD INTERROGATION REMOTE </90 D RECEIVABLE CLERK REVIEW completed Pacemaker Interrogation, Remote (Prof) Finn Johnson MD INTERROGATION EVAL REMOTE </90 D 1/2/OUTSIDE REPAIRER SPECIAL LEAD P completed Cardiolite, 2 units Finn Johnson MD c ompleted SPECT Images Aren Alexander MD completed Stress EKG Brenda Melgar MD completed Pacemaker Interrogation, Remote (Tech) Juan Manuel Toledo MD INTERROGATION REMOTE </90 D RECEIVABLE CLERK REVIEW completed Pacemaker Interrogation, Remote (Prof) Juan Manuel Toledo MD INTERROGATION EVAL REMOTE </90 D 1/2/OUTSIDE REPAIRER SPECIAL LEAD P completed Pacemaker Interrogation, Remote (Tech) Juan Manuel Toledo MD INTERROGATION REMOTE </90 D RECEIVABLE CLERK REVIEW completed Pacemaker Interrogation, Remote (Prof) Juan Manuel Toledo MD INTERROGATION EVAL REMOTE </90 D 1/2/OUTSIDE REPAIRER SPECIAL LEAD P completed EKG Juan Manuel Toledo MD complet ed Pacemaker Interrogation, Remote (Tech) Finn Johnson MD INTERROGATION REMOTE </90 D RECEIVABLE CLERK REVIEW completed Pacemaker Interrogation, Remote (Prof) Finn Johnson MD INTERROGATION EVAL REMOTE </90 D 1/2/OUTSIDE REPAIRER SPECIAL LEAD P completed Pacemaker Interrogation, Remote (Tech) Finn Johnson MD INTERROGATION REMOTE </90 D RECEIVABLE CLERK REVIEW completed Pacemaker Interrogation, Remote (Prof) iFnn Johnson MD INTERROGATION EVAL REMOTE </90 D 1/2/OUTSIDE REPAIRER SPECIAL LEAD P completed EKG Lynette Salazar MD completed SNOMED-CT: 021339547345136 Current Medications Documented Lynette Salazar MD completed Pacemaker Interrogation, Remote (Tech) Finn Johnson MD INTERROGATION REMOTE </90 D RECEIVABLE CLERK REVIEW completed Pacemaker Interrogation, Remote (Prof) Finn Johnson MD INTERROGATION EVAL REMOTE </90 D 1/2/OUTSIDE REPAIRER SPECIAL LEAD P completed Pacemaker Interrogation, Remote (Tech) Finn Johnson MD INTERROGATION REMOTE </90 D RECEIVABLE CLERK REVIEW completed Pacemaker Interrogation, Remote (Prof) Finn Johnson MD INTERROGATION EVAL REMOTE </90 D 1/2/OUTSIDE REPAIRER SPECIAL LEAD P completed SNOMED-CT: 532293749 Smoking Cessation Counseling Finn Johnson MD completed EKG Finn Johnson MD completed SNOMED-CT: 053008531851153 Current Medications Documented Finn Johnson MD completed Pacemaker Interrogation, Remote (Tech) Finn Johnson MD INTERROGATION REMOTE </90 D RECEIVABLE CLERK REVIEW completed Pacemaker Interrogation, Remote (Prof) Finn Johnson MD INTERROGATION EVAL REMOTE </90 D 1/2/OUTSIDE REPAIRER SPECIAL LEAD P completed Pacemaker Interrogation, Remote (Tech) Finn Johnson MD INTERROGATION REMOTE </90 D RECEIVABLE CLERK REVIEW completed Pacemaker Interrogation, Remote (Prof) Finn Johnson MD INTERROGATION EVAL REMOTE </90 D 1/2/OUTSIDE REPAIRER SPECIAL LEAD P completed Pacemaker Interrogation, Remote (Tech) Finn Johnson MD INTERROGATION REMOTE </90 D RECEIVABLE CLERK REVIEW completed Pacemaker Interrogation, Remote (Prof) Finn Johnson MD INTERROGATION EVAL REMOTE </90 D 1/2/OUTSIDE REPAIRER SPECIAL LEAD P completed Pacemaker Interrogation, Remote (Tech) Finn Johnson MD INTERROGATION REMOTE </90 D RECEIVABLE CLERK REVIEW completed Pacemaker Interrogation, Remote (Prof) Finn Johnson MD INTERROGATION EVAL REMOTE </90 D 1/2/OUTSIDE REPAIRER SPECIAL LEAD P completed BLOOD COUNT HEMOGLOBIN Finn Johnson MD completed FVC - 32855 Finn Johnson MD completed FRC - 60123 Finn Johnson MD completed DLCO - 74150 Finn Johnson MD complete d SNOMED-CT: 661999263 Smoking Cessation Counseling Finn Johnson MD completed SNOMED-CT: 557468166504466 Current Medications Documented Finn Johnson MD completed Pacemaker Interrogation, Remote (Tech) Juan Manuel Toledo MD INTERROGATION REMOTE </90 D RECEIVABLE CLERK REVIEW completed Pacemaker Interrogation, Remote (Prof) Juan Manuel Toledo MD INTERROGATION EVAL REMOTE </90 D 1/2/OUTSIDE REPAIRER SPECIAL LEAD P completed Pacemaker Interrogation, Remote (Tech) Finn Johnson MD INTERROGATION REMOTE </90 D RECEIVABLE CLERK REVIEW completed Pacemaker Interrogation, Remote (Prof) Finn Johnson MD INTERROGATION EVAL REMOTE </90 D 1/2/OUTSIDE REPAIRER SPECIAL LEAD P completed SNOMED-CT: 475698254 Smoking Cessation Counseling Juan Manuel Toledo MD completed SNOMED-CT: 75342820 Physical Exam, Performed: Pulse Exam of Foot Juan Manuel Toledo MD completed EKG Juan Manuel Toledo MD complet ed SNOMED-CT: 152990181114182 Current Medications Documented Juan Manuel Toledo MD completed Pacemaker Interrogation, Remote (Tech) Finn Johnson MD INTERROGATION REMOTE </90 D RECEIVABLE CLERK REVIEW completed Pacemaker Interrogation, Remote (Prof) Finn Johnson MD INTERROGATION EVAL REMOTE </90 D 1/2/OUTSIDE REPAIRER SPECIAL LEAD P completed Pacemaker Interrogation, Remote (Tech) Finn Johnson MD INTERROGATION REMOTE </90 D RECEIVABLE CLERK REVIEW completed Pacemaker Interrogation, Remote (Prof) Finn Johnson MD INTERROGATION EVAL REMOTE </90 D 1/2/OUTSIDE REPAIRER SPECIAL LEAD P completed EKG Venkatesh ryan MD completed Pacemaker Interrogation, Remote (Tech) Finn Johnson MD INTERROGATION REMOTE </90 D RECEIVABLE CLERK REVIEW completed Pacemaker Interrogation, Remote (Prof) Finn Johnson MD INTERROGATION EVAL REMOTE </90 D 1/2/OUTSIDE REPAIRER SPECIAL LEAD P completed ICM Interrogation, Remote (Prof) Finn Johnson MD INTERROGATION EVAL REMOTE </30 D CV MNTR SYS completed Pacemaker Interrogation, Remote (Tech) Finn Johnson MD INTERROGATION REMOTE </90 D RECEIVABLE CLERK REVIEW completed Pacemaker Interrogation, Remote (Prof) Finn Johnson MD INTERROGATION EVAL REMOTE </90 D 1/2/OUTSIDE REPAIRER SPECIAL LEAD P completed EKG Finn Johnson MD completed Pacemaker Interrogation, Remote (Tech) Finn Johnson MD INTERROGATION REMOTE </90 D RECEIVABLE CLERK REVIEW completed Pacemaker Interrogation, Remote (Prof) Finn Johnson MD INTERROGATION EVAL REMOTE </90 D 1/2/OUTSIDE REPAIRER SPECIAL LEAD P completed Pacemaker Interrogation, Remote (Tech) Finn Johnson MD INTERROGATION REMOTE </90 D RECEIVABLE CLERK REVIEW completed Pacemaker Interrogation, Remote (Prof) Finn Johnson MD INTERROGATION EVAL REMOTE </90 D 1/2/OUTSIDE REPAIRER SPECIAL LEAD P completed EKG Finn Johnson MD [...]
--- OUTSIDE RECORDS SUMMARY | 2025-03-11 14:23 | XMS_ITS | Clinical Summary ---
Author Organization [facility] Address [address] [place] [address] Care Team Providers Care Product Marketing Executive Name Role Phone Hayley Fonseca APRN-BRANCH STORE MANAGER Primary Care Provider [phone] Source Comments [facility], formerly [facility],non-owned Affiliates and Associated Physician Practices is amultiple site organization consisting of ambulatory clinics and hospital sitesin [place], [place], [place] and [place]. This disclosure is being madepursuant to the Care Everywhere program and may not contain all information available regarding this patient. 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 1 10/30/2018 [...] Office Visit [facility] - [address] [place] [address] Estrella Quintanilla MD [address] [place] [address] Health Maintenance Due Date Last Done Comments [...] - 26 mg/dL 07/23/2022 1:51 PM CDT [facility] Creatinine 0.98(H) 0.56 - 0.96 mg/dL 07/23/2022 1:51 PM [facility] Sodium 137 136 - 145 mmol/L 07/23/2022 1:51 PM [facility] Potassium 3.9 3.5 - 4.5 mmol/L 07/23/2022 1:51 PM [facility] Chloride 106 98 - 107 mmol/L 07/23/2022 1:51 PM [facility] CO2 23 22 - 29 mmol/L 07/23/2022 1:51 PM [facility] Glucose 92 70 - 115 mg/dL 07/23/2022 1:51 PM [facility] Calcium 8.5 8.4 - 10.2 mg/dL 07/23/2022 1:51 PM [facility] Protein Total 6.8 6.0 - 8.3 g/dL 07/23/2022 1:51 PM [facility] Albumin 3.7 3.4 - 5.0 g/dL 07/23/2022 1:51 PM [facility] Bilirubin Total 0.5 0.2 - 1.2 mg/dL 07/23/2022 1:51 PM [facility] Alkaline Phosphatase 91 40 - 150 U/L 07/23/2022 1:51 PM [facility] ALT 41 5 - 55 U/L 07/23/2022 1:51 PM [facility] AST 30 5 - 34 U/L 07/23/2022 1:51 PM [facility] Anion Gap 12 8 - 18 07/23/2022 1:51 PM [facility] BUN/Creatinine Ratio 11 7 - 23 07/23/2022 1:51 PM [facility] Osmolality Calculated 283 270 - 300 mOsm/kg 07/23/2022 1:51 PM [facility] Albumin/Globulin Ratio 1.2 1.1 - 2.3 07/23/2022 1:51 PM [facility] eGFR by CKD-EPI 71(L) >=90 mL/min/1.7 3 m2 07/23/2022 1:51 PM [facility] Blood BLOOD SPECIMEN / Unknown Venipuncture / Unknown 07/23/2022 1:16 PM CDT 07/23/2022 1:23 PM CDT Mike Oh MD LAB - CHEMISTRY ORDERABLES Final Result Performing Organization Address [facility]/State/ZIP Co de Phone Number [facility] [address] [place] [address], [facility] [phone] from Last 3 Months or Most Recently Relevant to Health Maintenance Insurance [employer] Care Teams Product Marketing Executive Relationship Specialty Start Date End Date Hayley Fonseca APRN-CNP [address] [address] PCP - General 12/18/21
--- OUTSIDE RECORDS SUMMARY | 2025-03-11 14:23 | XMS_ITS | Clinical Summary ---
Author Organization [facility] Address [address] [place] [address] Phone Care Team Providers Care Gas Shovel Operator Name Role Phone Minerva Richardson NP Primary [...] Data STL ABSTRACTION Provider, Abstract 01/26/[address] [facility] Neurosurgery - Medical [place] [address] [place] [address] Edis Veronica MD Wants Appointment 01/25/2025 External Device Data STL ABSTRACTION Provider, Abstract 01/25/[address] [facility] Neurosurgery - Medical [place] [address] [place] [address] Provider, Abstract 12/29/2024 External Device Data STL [...] Comments Blood Pressure 107/78 11/21/2021 10:43 AM COUPON MANIFEST CLERK Pulse 86 08/29/2021 2:41 PM COUPON MANIFEST CLERK Temperature 36.8 C (98.2 F) 11/21/2021 10:43 AM COUPON MANIFEST CLERK Respiratory Rate 16 07/09/2021 4:08 PM CDT Oxygen Saturation 95% 07/09/2021 4:08 PM CDT Inhaled Oxygen Concentration - - Weight 98.9 kg (218 lb) 11/21/2021 10:43 AM COUPON MANIFEST CLERK Height 182.9 cm (6') 11/21/2021 10:43 AM COUPON MANIFEST CLERK Body Mass Index 29.57 11/21/2021 10:43 AM COUPON MANIFEST CLERK Plan of Treatment Upcoming Encounters Date Type Department Care Team (Late st Contact Info) Description 03/22/2025 1:30 PM CDT Office Visit [facility] Neurosurgery - Medical [place] [address] [place] [address] Edis Veronica MD [address] [facility] [address] [address] -[phone] (Work) Health Maintenance Due Date Last [...] 08/17/2019, 08/16/2019 Medical Devices Implanted Type Area Obstetrics And Gynecology Professor Device Identifier Shelf Expiration Date Model / Serial / Lot Triad Cc Allograft Implanted:Qt y: 1 on 07/09/2021 by Edis Veronica MD at [facility] Bone N/A: Spine Cervical Anterior [employer] 11/08/2025 [id number] / [id number] / Hemostatic Surgiflo 8ml W/ Thrombin 2994 - Old - [id number] Implanted:Qt y: 1 on 07/09/2021 by Edis Veronica MD at [facility] Hemostatic N/A: Spine Cervical Anterior [employer] [id number] 11/12/2022 2994 / / [id number] Acp 1.6v, 42mm, 2 Level Plate Implanted:Qt y: 1 on 07/09/2021 by Edis Veronica MD at [facility] Plate N/A: Spine Cervical Anterior [employer] [id number] / LOAD 2 9 / STERILIZED 06-29-21 Description:All Nuv[employer] cer vical hardware was processed on requisition, [id number]. Acp Screw, 3.5 X 15 Mm Self Drilling Jailyn Implanted:Qt y: 6 on 07/09/2021 by Edis Veronica MD at [facility] Screw N/A: Spine Cervical Anterior [employer] [id number] / LOAD 2 9 / STERILIZED 06-29-21 Allograft Triad Cc Cerv [id number] - [id number] Implanted:Qt y: 1 on 07/09/2021 by Edis Veronica MD at [facility] Tissue N/A: Spine Cervical Anterior [employer] 01/28/2026 [id number] / [id number] / Pacemaker Insurance [employer] BLUE ACCESS/TRUE BLUE PPO RX [employer] Commercial Care Teams Gas Shovel Operator Relationship Specialty Start Date End Date Minerva Richardson NP PCP - General NURSE PRACTITIONER 12/27/20
[2025-03-11 14:30] LABS: Basophils Percent Auto 0.3 % (0.2-1.2); Eosinophils Absolute Auto 0.1 K/mm3 (0-0.3); Eosinophils Percent Auto 2.2 % (0-4.4); Hematocrit 41.9 % (37.0-47.0); Hemoglobin 14.4 g/dL (12.0-15.0); Immature Granulocyte Absolute 0.01 K/mm3 (0.00-0.031); Immature Granulocyte Percent A 0.2 % (0-0.5); Lymphocytes Absolute Auto 1.84 K/mm3 (0.9-3.2); Lymphocytes Percent Auto 28.5 % (18.3-44.2); Mean Corpuscular HGB Conc 34.4 g/dl (32-36); Mean Corpuscular Hemoglobin 31.4 pg (26-34); Mean Corpuscular Volume 91.5 fl (80-100); Mean Platelet Volume 9.6 fl (7.4-10.4); Monocytes Absolute Auto 0.6 K/mm3 (0.1-0.6); Monocytes Percent Auto 8.7 % (2.6-8.5); Neutrophils Absolute Auto 3.9 K/mm3 (1.3-6.7); Neutrophils Percent Auto 60.1 % (45.5-73.1); Platelet Count Result 244 k/mm3 (150-375); Red Blood Count 4.58 M/mm3 (4.2-5.4); Red Cell Distribution Width 12.8 % (11.5-14.5); White Blood Count 6.5 K/mm3 (4.5-10.0)
[2025-03-11 14:36] LABS: Add Urine Microscopic? YES; Appearance Urine Clear (Clear); Bacteria Urine Rare /hpf; Bilirubin Urine 1+ (Negative); Blood Urine Negative (Negative); Color Urine Dark Yellow (Yellow); Glucose Urine UA Negative (Negative); Ketones Urine 1+ mg/dL (Negative); Leukocyte Esterase Ur Trace LEU/UL (Negative); Nitrate Urine Negative (Negative); Non Pathogenic Casts 0-2; Protein Urine 1+ mg/dL (Negative); RBC Urine 0-2 /hpf (0-2); Specific Grav Ur 1.041 (1.001-1.035); Squamous Epithelial Cell Urine Moderate /hpf (Few); WBC Urine 0-5 /hpf (0-3)
[2025-03-11 14:40] LABS: Alanine Aminotransferase 24 U/L (6-35); Albumin Level 4.1 g/dL (3.5-5.1); Alkaline Phosphatase 73 U/L (38-126); Anion Gap 7 mmol/L (4-12); Aspartate Amino Transferase 35 U/L (14-36); Bilirubin,Total 0.8 mg/dL (0.2-1.3); Blood Urea Nitrogen 16 mg/dL (7-17); Calcium 9.1 mg/dL (8.4-10.2); Carbon Dioxide 26 mmol/L (22-30); Chloride 105 mmol/L (98-107); Estimated CRCL calculation 68 ml/min; Estimated Glomerular Filt Rate > 60; Glucose 93 mg/dL (65-110); Magnesium 2.2 mg/dL (1.6-2.3); Potassium 3.1 mmol/L (3.4-5.0); Sodium 138 mmol/L (137-145)
[2025-03-11 14:52] LABS: Troponin I < 0.012 ng/mL (0.000-0.034)
[2025-03-11] MEDS: SODIUM CHLORIDE 0.9% IV 1,000 ML 999 ML IV CONT (14:56)
--- NOTE | 2025-03-11 16:12 | ED_ITS ---
HPI - General Adult General Chief complaint: Syncope Stated complaint: passed on Friday, also right flank pain Time Seen by Provider: 03/11/25 13:26 History of Present Illness HPI narrative: Patient is a 49-year-old female who presents ER after having a syncopal episode at a restaurant earlier this week. Occurred 4 days ago. Two days prior to that she had been feeling unwell and having fevers. She has had some sinus congestion. No chest pain or productive cough. No urinary symptoms. Has had some body aches/back pain. Patient has a pacemaker for vasovagal syncope. Patient has had some vomiting and loose stool earlier in the week but none recently. Related Data Home Medications ?Medication ?Instructions ?Recorded ?Confirmed ?Last Taken ?Type duloxetine 60 mg capsule,delayed 60 mg PO DAILY 01/30/20 02/14/25 10/03/22 History release hydrochlorothiazide 25 mg tablet 25 mg PO DAILY 02/18/20 02/14/25 10/03/22 History gabapentin 300 mg capsule 300 mg PO DAILY 09/04/24 02/14/25 Unknown History metoprolol tartrate 50 mg tablet 50 mg PO Q12H 01/17/25 02/14/25 Unknown History bupropion HCl 100 mg tablet 100 mg PO BID 02/14/25 02/14/25 Unknown History Allergies Allergy/AdvReac Type Severity Reaction Status Date / Time Penicillins Allergy Intermediate Hives Verified 03/11/25 10:31 escitalopram (From Lexapro) Allergy Hives Verified 03/11/25 10:31 Review of Systems 2 Review of Systems: All systems reviewed & are unremarkable except as noted in HPI and below Constitutional: Constitutional: Reports no additional constitutional complaints Cardiovascular: Cardiovascular: Reports no additional cardiovascular complaints Respiratory: Respiratory: Reports no additional respiratory complaints Neurologic: Reports system reviewed and no additional complaints, except as documented PMF Past Medical History Medical History Colon cancer screening Lupus [place] Nausea RUQ pain Vasovagal syncope Anxiety Hypertension Surgical History Surgical History History of tubal ligation S/P placement of cardiac pacemaker History of cholecystectomy Social History Social History Smoking status: Never smoker Alcohol intake: never Substance use: never Substance use type: does not use Do You Feel Safe in your Home?: Yes Lack of Transportation: No Lack of Food: Never True Current Housing: I Have Housing Concerned About Future Housing: YES Difficulty Paying Gas/Electric Bills: No Difficulty Paying for Meds: No Currently Unemployed: No Education: High School Diploma/GED Difficulty w/ Childcare or Family Care: No Living arrangements: with family Gender identity (if verbalized by the patient): Female Spiritual care concerns: No Exam 2 Narrative: GENERAL: Well-appearing, well-nourished, and in no acute distress. HEAD: Normocephalic, atraumatic. EYES: PERRLA and EOMI. ENT: Nares clear, no rhinorrhea or epistaxis. Mucous membranes moist. NECK: Supple. CHEST: Clear to auscultation. No respiratory distress. HEART: Regular rate and rhythm. No murmur heard. Normal peripheral pulses. ABDOMEN: Soft, nontender, nondistended, normal active bowel sounds. EXTREMITIES: Normal range of motion. No edema. SKIN: Warm, dry, no rash. NEURO: No focal deficits. Alert and oriented x3. PSYCH: Normal mood and affect. Course Course Emergency Course: Pacemaker interrogated. It shows no alerts or episodes. Labs with mild hypokalemia. Troponin negative. Appropriate for discharge home. Vital Signs Vital signs: Vital Signs Temperature 97.9 F 03/11/25 11:30 Pulse Rate 03/11/25 11:30 Respiratory Rate 03/11/25 11:30 Blood Pressure 142/99 H 03/11/25 11:30 Temperature 97.9 F 03/11/25 11:30 Pulse Rate 03/11/25 11:30 Respiratory Rate 03/11/25 11:30 Blood Pressure 142/99 H 03/11/25 11:30 Medical Decision Making Vital Signs Vital Signs: Vital Signs Temperature 97.9 F 03/11/25 11:30 Pulse Rate 03/11/25 11:30 Respiratory Rate 03/11/25 11:30 Blood Pressure 142/99 H 03/11/25 11:30 Temperature 97.9 F 03/11/25 11:30 Pulse Rate 03/11/25 11:30 Respiratory Rate 03/11/25 11:30 Blood Pressure 142/99 H 03/11/25 11:30 Lab Data 03/11/25 14:20 03/11/25 14:20 Labs: Lab Results 03/11/25 Range/Units 14:20 WBC 6.5 (4.5-10.0) K/mm3 RBC 4.58 (4.2-5.4) M/mm3 Hgb 14.4 (12.0-15.0) g/dL Hct 41.9 (37.0-47.0) % MCV 91.5 (80-100) fl MCH 31.4 (26-34) pg MCHC 34.4 (32-36) g/dl RDW 12.8 (11.5-14.5) % Plt Count 244 (150-375) k/mm3 MPV 9.6 (7.4-10.4) fl Immature Gran % (Auto) 0.2 (0-0.5) % Neut % (Auto) 60.1 (45.5-73.1) % Lymph % (Auto) 28.5 (18.3-44.2) % [place] % (Auto) 8.7 H (2.6-8.5) % Eos % (Auto) 2.2 (0-4.4) % Baso % (Auto) 0.3 (0.2-1.2) % Lymph # (Auto) 1.84 (0.9-3.2) K/mm3 [place] # (Auto) 0.6 (0.1-0.6) K/mm3 Eos # (Auto) 0.1 (0-0.3) K/mm3 Baso # (Auto) 0.0 (0.0-0.1) K/mm3 Abs Immat Gran (auto) 0.01 (0.00-0.031) K/mm3 Absolute Neuts (auto) 3.9 (1.3-6.7) K/mm3 Absolute Nucleated RBC 0.000 (0.0-0.012) K/mm3 Nucleated RBC % 0.0 (0.0-0.2) % Sodium 138 (137-145) mmol/L Potassium 3.1 L (3.4-5.0) mmol/L Chloride 105 (98-107) mmol/L Carbon Dioxide 26 (22-30) mmol/L Anion Gap 7 (4-12) mmol/L BUN 16 (7-17) mg/dL Creatinine 0.97 (0.7-1.0) mg/dL Estim Creat Clear Calc 68 ml/min Estimated GFR > 60 (59 - ) Glucose 93 (65-110) mg/dL Calcium 9.1 (8.4-10.2) mg/dL Magnesium 2.2 (1.6-2.3) mg/dL Total Bilirubin 0.8 (0.2-1.3) mg/dL AST 35 (14-36) U/L ALT 24 (6-35) U/L Alkaline Phosphatase 73 (38-126) U/L Troponin I < 0.012 (0.000-0.034) ng/mL Total Protein 7.0 (6.3-8.2) g/dL Albumin 4.1 (3.5-5.1) g/dL Urine Color Dark yellow (Yellow) Urine Appearance Clear (Clear) Urine pH 6.0 (5.0-9.0) Ur Specific [place] 1.041 H (1.001-1.035) Urine Protein 1+ H (Negative) mg/dL Urine Glucose (UA) Negative (Negative) mg/dL Urine Ketones 1+ H (Negative) mg/dL Ur Blood (Man) Negative (Negative) Urine Nitrate Negative (Negative) Urine Bilirubin 1+ H (Negative) Urine Urobilinogen 1.0 (<2.0) mg/dL Leukocyte Esterase Rfl Trace H (Negative) LIANG/UL Urine RBC 0-2 (0-2) /hpf Urine WBC 0-5 (0-3) /hpf Ur Squamous Epith Cells Moderate (Few) /hpf Urine Bacteria Rare /hpf Urine Casts 0-2 Imaging Data Radiologist's impression: ITS Impressions Chest X-Ray 03/11/25 14:42 IMPRESSION: 1: NO ACUTE CARDIOPULMONARY DISEASE. Discharge Plan Discharge Clinical Impression: Syncope, Body aches Patient Disposition: Home Condition: Stable Instructions: Syncope (ED) Additional Instructions: Return to the emergency department if you develop severe abdominal pain, severe nausea and vomiting to the point where you are unable to keep down fluids, if you develop chest pain or difficulty breathing, blood in your stool, dizziness or fainting, or if you develop any other new or concerning symptoms as these could be signs of more serious medical illness. Try to stay well hydrated. Patient Language: Vietnamese Prescriptions: New naproxen 375 mg tablet 375 mg PO BID Qty: 14 0RF No Action (DME) [employer] MDI Spacer Spacer See Rx Instructions .ROUTE .MEDSUPPLY Qty: 1 0RF Rx Instructions: As directed metoprolol tartrate 50 mg tablet 50 mg PO Q12H gabapentin 300 mg capsule 300 mg PO DAILY bupropion HCl 100 mg tablet 100 mg PO BID acetaminophen 500 mg tablet 1,000 mg PO TID PRN (Reason: chanda) 7 Days Qty: 42 0RF duloxetine 60 mg Capsule,Delayed Release(Dr/Ec) 60 mg PO DAILY hydrochlorothiazide 25 mg tablet 25 mg PO DAILY Follow-up/Referrals: UNKNOWN,DOCTOR [Primary Care Provider] - 1 Week
[2025-03-11] MEDS: KETOROLAC 30 MG/ML VIAL (*BKC) IV PUSH (18:22)
== END 2025-03-11 18:30 | disposition home or self-care (01) ==
PROVIDERS: Emergency Provider Emergency Medicine
DX: R55 Syncope and collapse (principal); R52 Pain, unspecified; I10 Essential (primary) hypertension; M32.9 Systemic lupus erythematosus, unspecified; Z95.0 Presence of cardiac pacemaker
CPT/HCPCS: 36415; 71046; 80053; 81001; 81003; 82948; 83735; 84484; 85025; 93005; 96361; 96374; 99284; J1885; J7030

== ENCOUNTER 2025-03-22 06:55 | Outpatient (CLI) | payer OTHER, SELFPAY ==
[2025-03-15 13:46] VITALS: BMI 27.5
--- NOTE | 2025-03-15 13:47 | PC.NURSE ---
Pre Radiology instructions Report to the outpatient eula [email or web address] on date _[id number]_ at time _0700_ for procedure Time: _0900_ YOU MAY BE MONITORED AT HOSPITAL FOR UP TO 4 HOURS AFTER YOUR PROCEDURE. A visitor will be allowed to accompany the patient into the hospital. You and your visitor will be asked to self-screen and do not enter if you have any COVID symptoms. A mask is OPTIONAL within the hospital. Patients are to have no food or drink 6 hours prior to procedure time Driving will be restricted after the procedure, you must have a person to drive you home. Labs will be drawn in preop area and once reviewed, you will be taken to radiology area for procedure. When the procedure is completed, you will be taken to outpatient where you will be monitored for several hours. You may have one visitor in this area. Other than holding anti-coagulants, patient may take other medication(s) as scheduled. Prior to your appointment date patients are instructed to hold anti-coagulants after discussing with ordering provider to stop. If unable to discontinue anti-coagulants please notify radiologist. ? No aspirin or warfarin (Coumadin) for 7 days prior to the procedure. ? No clopidogrel (Plavix), ticagrelor (Brilinta), prasugrel (Effient) or dabigatran (Pradaxa) for 5 days prior to the procedure. ? No rivaroxaban (Xarelto), apixaban (Eliquis), dipyridamole (Aggrenox or Persantine) or cilostazol (Pletal) for 2 days prior to the procedure. Medications to discontinue per physician: Date to take last dose: Please leave all valuables, including medications, at home the day of procedure. The hospital will not accept responsibility for valuables. Wear comfortable, loose fitting clothing.? Follow any additional instructions given to you from ordering provider. Telephone instructions given to __Amy__and asked if any additional questions and then verbalized understanding. Patient advised to call scheduling provider office or registration scheduling [phone] if any additional questions.
--- NOTE | ~2025-03-22 | CT_ITS ---
EXAMINATION: CT cervical spine w con DATE: 03/22/2025 09:34 INDICATION: Cervical myelogram TECHNIQUE: TECHNIQUE: Informed consent was obtained from the patient. Risks and benefits including bleeding, i nfection, spinal headache, allergic reaction and nerve root injury were discussed with the patient. The patient agreed to proceed. Time out procedure was performed. Commissary Worker radiograph was obtained. An entry site was chosen at the L3-L4 level. A right paracentral approach was used. Standard sterile prep was done with Betadine. Entry site was infiltrated with 5 cc 1% lidocaine. A 3.5 22G spinal n eedle was then inserted into the spinal canal. 10 mm Omnipaque 300 were then injected into the theca l sac. With the patient still in the prone position the head of the bed was lowered the contrast bolus follo wed with intermittent fluoroscopy as it traveled to the cervical spine. The patient developed some tr ansient nausea and further fluoroscopic imaging of the cervical spine was deferred in the patient was then transferred to CT scan for spiral CT of the cervical spine. The CT of the cervical spine was pe rformed with intrathecal but without intravenous contrast. Automated exposure control and iterative r econstruction technique were employed. The dose-length product was 524.95 mGy-cm. Following this pat ient was transferred to recovery unit for 2 hours of observation. There are no immediate complicatio ns. Coronal and sagittal reformatted images of the lumbar spine CT were also reviewed. COMPARISON: Chest CT dated 01/30/2020 FINDINGS: 2 mm anterolisthesis C7 on T1. 5 degrees cervicothoracic dextrocurvature. Straightening of the normal cervical lordosis. There is been prior C5-C7 instrumented anterior spinal fusion with interbody plat e and screw fixation. There is solidly fused bone graft material at both levels, more advanced at C5- C6. Vertebral body heights are normal. Severe right-sided predominant disc height loss at T2-T3. Mode rate disc height loss at C7-T1, mild to moderate disc height loss at C3-C4 and C4-C5 mild disc height loss at C2-C3 and T1-T2. No change since 2019 in a likely benign chronic sclerotic lesion at T1. Vis ualized cervical soft tissues are unremarkable. Pair of cardiac pacemaker leads are seen extending al maya the left brachiocephalic vein. Chronic 2 mm noncalcified granulomata the right apex unchanged sin ce CT dated 01/30/2020. The following disc levels are specifically discussed: C2-C3: The disc does not extend beyond the endplate margin. There is mild bilateral uncovertebral karolina nt osteoarthritis. There is severe bilateral facet joint osteoarthritis. There is mild left and moder ate right neural foraminal stenosis. There is no central canal stenosis. C3-C4: The disc does not extend beyond the endplate margin. There is mild left and moderate right unc overtebral joint osteoarthritis. There is severe bilateral facet joint osteoarthritis. There is moder ate bilateral neural foraminal stenosis. There is minimal central canal stenosis. C4-C5: The disc does not extend beyond the endplate margin but there are small right sided posterior endplate osteophytes. There is mild bilateral uncovertebral joint osteoarthritis. There is moderate b ilateral facet joint osteoarthritis. There is left and minimal right neural foraminal stenosis. There is mild central canal stenosis with the posterior endplate osteophytes mildly indenting the right ve ntral surface of the cord. C5-C6: Moderate hypertrophic endplate osteophytes along the posterior margin of the fused disc space. There is moderate osteoarthritis is suggestion of developing fusion at the bilateral facet joints. T here is are bilateral neural foraminal stenosis. There is mild central canal stenosis and indents of the right ventral surface of the cord. C6-C7: Anterior spinal fusion with mild posterior endplate osteophytes and moderate osteoarthritis at the still unfused uncovertebral joints. There is mild right and moderate left facet joint osteoarthr itis. There is mild right and moderate left neural foraminal stenosis. There is mild central canal st enosis. C7-T1: The disc does not extend beyond the more posterior T1 endplate margin. There is mild bilateral uncovertebral joint osteoarthritis. There is right and severe left facet joint osteoarthritis. There is minimal bilateral neural foraminal stenosis. There is minimal central canal stenosis. IMPRESSION: 1. Moderate cervical spondylosis with C5-C7 instrumented anterior spinal fusion. Reviewed, dictated and finalized at location A. IMPRESSION: 1. Moderate cervical spondylosis with C5-C7 instrumented anterior spinal fusion .
--- NOTE | ~2025-03-22 | XR_ITS ---
EXAMINATION: CT cervical spine w con DATE: 03/22/2025 09:34 INDICATION: Cervical myelogram TECHNIQUE: TECHNIQUE: Informed consent was obtained from the patient. Risks and benefits including bleeding, i nfection, spinal headache, allergic reaction and nerve root injury were discussed with the patient. The patient agreed to proceed. Time out procedure was performed. Nurse Ortho radiograph was obtained. An entry site was chosen at the L3-L4 level. A right paracentral approach was used. Standard sterile prep was done with Betadine. Entry site was infiltrated with 5 cc 1% lidocaine. A 3.5 22G spinal n eedle was then inserted into the spinal canal. 10 mm Omnipaque 300 were then injected into the theca l sac. With the patient still in the prone position the head of the bed was lowered the contrast bolu s followed with intermittent fluoroscopy as it traveled to the cervical spine. The patient developed some transient nausea and further fluoroscopic imaging of the cervical spine was deferred in the faraz ent was then transferred to CT scan for spiral CT of the cervical spine. The CT of the cervical spine was performed with intrathecal but without intravenous contrast. Automated exposure control and iter ative reconstruction technique were employed. The dose-length product was 524.95 mGy-cm. Following t his patient was transferred to recovery unit for 2 hours of observation. There are no immediate comp lications. COMPARISON: CT, chest, abdomen and pelvis dated 01/30/2020 FINDINGS: Images demonstrate needle tip projecting over the central canal via left paracentral approach at L3-L 4. Subsequent images demonstrate intrathecal extension of contrast in the lumbar spine. Incidentally noted are changes of prior aortobiiliac endoluminal stent grafting. Subsequent images demonstrate con trast traveling towards the cervical spine and 20 CT mild rim which could be dictated separately. IMPRESSION: 1. Successful lumbar puncture with intrathecal administration of contrast for subsequent CT myelogram which will be dictated separately. Reviewed, dictated and finalized at location A. IMPRESSION: 1. Successful lumbar puncture with intrathecal administration of contrast for s ubsequent CT myelogram which will be dictated separately.
--- OUTSIDE RECORDS SUMMARY | 2025-03-22 06:59 | XMS_ITS | Clinical Summary ---
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 Gender Identity Not on file Sexual Orientation [...] history exists Medical Devices Implanted Type Area Swatch Maker Device Identifier Shelf Expiration Date Model / Serial / Lot [employer] Crist[employer]bal Stent Venous Wall [id number] - [id number] Implanted:Qty: 1 on 08/21/2023 by Finn Johnson MD at [facility] [employer] Crist[employer]bal 07/29/2024 [id number] / / [id number] [employer] Cristóbal Stent Venous Wall [id number] - [id number] Implanted:Qty: 1 on 08/21/2023 by Finn Johnson MD at [facility] [employer] Crist[employer] 10/22/2024 [id number] / / [id number] Insurance ACCESS Patients Know Best [place] Patients Know Best [place] Advance Directives For more information, please contact: [phone] * Full Code (Latest Code Status on File) Date Activated Date Inactivated Comments 08/21/2023 2:40 PM 08/21/2023 8:52 PM * Full Code Date Activated Date Inactivated Comments 08/17/2019 9:45 AM 08/17/2019 2:34 PM Care Teams Electrotype Servicer Relationship Specialty [place] [address] [address] PCP - General Family Medicine 03/23/24 Venkatesh [place] [address] [address] Consulting Physician Cardiology 08/17/19
--- OUTSIDE RECORDS SUMMARY | 2025-03-22 06:59 | XMS_ITS | Referral Summary ---
Author Organization [facility] Address [address] [place] [address] Care Team Providers Care Architectural Coating Finisher Name Role Phone Venkatesh Carbone MD Unavailable [phone] Lupe Grey NP Primary Care Provider [phone] Encounters Date Type Department Care Team Description 01/06/2025 2:45 PM CDT Office Visit [facility] at [address] [address] Dot Tarango NP Tachycardia (Primary [...] on file Legal Sex Female 10:14 AM [employer] Gender Identity Not on file Sexual Orientation [...] on file Medical Devices Implanted Type Area Wet Roller Device Identifier Shelf Expiration Date Model / Serial / Lot [employer] Stent Venous Wall [id number] - [id number] Implanted:Qty: 1 on 08/21/2023 by Finn Johnson MD at [facility] [employer] 07/29/2024 [id number] / / [id number] [employer] Cristóbal Stent Venous Wall [id number] - [id number] Implanted:Qty: 1 on 08/21/2023 by Finn Johnson MD at [facility] [employer] Crist[employer]bal 10/22/2024 [id number] / / [id number] Insurance Dead [employer] [place] Advance Directives For more information, please contact: [phone] * Full Code (Latest Code Status on File) Date Activated Date Inactivated Comments 08/21/2023 2:40 PM 08/21/2023 8:52 PM * Full Code Date Activated Date Inactivated Comments 08/17/2019 9:45 AM 08/17/2019 2:34 PM Care Teams Architectural Coating Finisher Relationship Specialty [place] [address] [address] [address] PCP - General Family Medicine 03/23/24 [place] [address] [address] Consulting Physician Cardiology 08/17/19
--- OUTSIDE RECORDS SUMMARY | 2025-03-22 06:59 | XMS_ITS | Clinical Summary ---
Author Organization [facility] [employer] Address [address] [place] [address] Care Team Providers Care Wig Dresser Name Role Phone Hayley Fonseca APRN-BRIDGE DESIGN ENGINEER Primary Care Provider [phone] Source Comments [facility],non-owned Affiliates and Associated Physician Practices is amultiple site organization consisting of ambulatory clinics and hospital sitesin [place], [place], [place] and [place]. This disclosure is being madepursuant to the Care Everywhere program and may not contain all information available regarding this patient. Last updated 18.[facility] [employer] 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 therapy 1 [...] Office Visit [facility] - [address] [facility] [place] [address] Estrella Quintanilla MD [address] [facility] [address] [place] [address] Health Maintenance Due Date Last Done Comments [...] - 26 mg/dL 07/23/2022 1:51 PM CDT [facility] Creatinine 0.98(H) 0.56 - 0.96 mg/dL 07/23/2022 1:51 PM [facility] Sodium 137 136 - 145 mmol/L 07/23/2022 1:51 PM [facility] Potassium 3.9 3.5 - 4.5 mmol/L 07/23/2022 1:51 PM [facility] Chloride 106 98 - 107 mmol/L 07/23/2022 1:51 PM [facility] CO2 23 22 - 29 mmol/L 07/23/2022 1:51 PM [facility] Glucose 92 70 - 115 [...] CHEMISTRY ORDERABLES Final Result Performing Organization Address [facility]/State/ZIP Co de Phone Number [facility] [address] [place] [address], [facility] [phone] from Last 3 Months or Most Recently Relevant to Health Maintenance Insurance ANTHEM Care Teams Wig Dresser Relationship Specialty Start Date End Date Hayley Fonseca APRN-CNP [address] [address] PCP - General 12/18/21
--- OUTSIDE RECORDS SUMMARY | 2025-03-22 06:59 | XMS_ITS | CONTINUITY OF CARE DOCUMENT ---
Author Name yonny blancas Address Unknown Organization [facility] Address [address] [place] [address] Phone [phone] Care Team Providers Care Staff Anesthetist Name Role Phone Finn Johnson MD Unavailable [phone] Matilda CORNEJO, Almas Unavailable [phone] Almas Bernal Unavailable [phone] PROBLEMS Condition Status Date Provider Notes Lower [...] Johnson MD CAD-07/18 CAROTID NEG completed - Fnin Johnson MD HTN - 01/2010 MARIBELL DUP [...] In-person encounter Office Visit Rik Rodriguez DO [facility] Office - In-person encounter Office Visit Venkatesh Carbone MD [facility] Mitral regurgitation - In-person encounter Office Visit Finn Johnson MD [facility] Office - In-person encounter Office Visit Finn Johnson MD [facility] Office - In-person encounter Office Visit Finn Johnson MD [facility] Hyperlipidemia - In-person encounter Office Visit Finn Johnson MD [facility] Office Chronic venous hypertension (idiopathic) without complications of bilateral lower extremity - In-person encounter Office Visit Venkatesh Carbone MD [facility] HTN - 01/2010 MARIBELL DUP NEG - In-person encounter Office Visit Finn Johnson MD [facility] Office - In-person encounter Office Visit Venkatesh Carbone MD [facility] - In-person encounter Office Visit Venkatesh Carbone MD [facility] - In-person encounter Office Visit Finn Johnson MD [facility] Hypertension - In-person encounter Office Visit Finn Johnson MD [facility] HeadacheDizzinessExposure to SARS-associated coronavirus - In-person encounter Office Visit Venkatesh Carbone MD [facility] - In-person encounter Office Visit Finn Johnson MD [facility] S/P ABLATION 2018 - In-person encounter Office Visit Venkatesh Carbone MD [facility] Office - In-person encounter Office Visit Venkatesh Carbone MD [facility] SVT S/P ABLATION 08/2019 - In-person encounter Office Visit Finn Johnson MD [facility] Office Tobacco use quit - In-person encounter Office Visit Juan Manuel Toledo MD [facility] Numbness, left extremities - In-person encounter Office Visit Lynette Salazar MD [facility] Sleep apnea - In-person encounter Office Visit Finn Johnson MD [facility] SYNCOPECHEST PAIN - 04/2008 CATH NEGS/P ST KI DC PM GEN CHANGE 05/20/2011/ Gen change DC PM Biotronik 03/24/23 ( NOT MRI SAFE/SCHULTZ LEADS)Tobacco use quitPALPITATIONS - In-person encounter Office Visit Finn Johnson MD [facility] CAD-07/18 CAROTID NEGHTN - 01/2010 MARIBELL DUP NEG - In-person encounter Office Visit Juan Manuel Toledo MD [facility] - In-person encounter Office Visit Venkatesh Carbone MD [facility] Shortness of breathHeadache - In-person encounter Office Visit Finn Johnson MD [facility] - In-person encounter Office Visit Finn Johnson MD [facility] - In-person encounter Office Visit Finn Johnson MD [facility] - In-person encounter Office Visit Finn Johnson MD [facility] - In-person encounter Office Visit Diego Segura MD [facility] - In-person encounter Office Visit Finn Johnson MD [facility] - In-person encounter Office Visit Brenda Melgar MD [facility] - In-person encounter Office Visit Finn Johnson MD [facility] - In-person encounter Office Visit Finn Johnson MD [facility] - In-person encounter Office Visit RAHUL ROSALES MD [facility] Office - In-person encounter Office Visit Finn Johnson MD [facility] Tobacco use quit - In-person encounter Office Visit Ray Mon MD [facility] - In-person encounter Office Visit Finn Johnson MD [facility] - In-person encounter Office Visit Finn Johnson MD [facility] CHEST PAIN - 04/2008 CATH NEGS/P ST KI DC PM GEN CHANGE 05/20/2011/ Gen change DC PM Biotronik 03/24/23 ( NOT MRI SAFE/SCHULTZ LEADS) - In-person encounter Office Visit Finn Johnson MD [facility] - In-person encounter Office Visit Finn Johnson MD [facility] HTN-02/21ECHO EF 60-4/10ECHO EF 60-8/07ECHO EF [...] Kay Body Mass Index (Ratio) 32.00 kg/m2 [facility] asad Tawanna blood pressure, diastolic 87 mm[Hg] Pallavi skylar Matthews blood pressure, systolic 123 mm[Hg] Any a Byron pulse rate 67 /min Carol Byron oxygen saturation, oximetry 94 % Carol Byron weight E&M 236 [lb_av] Carol Byron blood pressure, cuff size large An skylar Matthews height E&M 72 [in_i] Carol Matthews Body Mass Index (Ratio) 31.73 kg/m2 [facility] blood pressure, diastolic 104 mm[Hg] Kristen nkLog blood pressure, systolic 137 mm[Hg] Patricia kLog blood pressure, cuff size regular [facility] blood pressure, diastolic 104 mm[Hg] John rret blood pressure, systolic 137 mm[Hg] Cosme ret pulse rate 110 /min Vick oxygen saturation, oximetry 100 % Vick respiratory rate E&M 16 /min Vick weight E&M 234 [lb_av] Vick height E&M 72 [in_i] Vick Body Mass Index (Ratio) 31.33 kg/m2 [facility] asad Tawanna blood pressure, diastolic 109 mm[Hg] Pallavi skylar Matthews blood pressure, systolic 158 mm[Hg] Any a Byron oxygen saturation, oximetry 100 % Carol Matthews pulse rate 72 /min Carol Byron weight E&M 231 [lb_av] Carol Byron blood pressure, cuff size large Pallavi cheng Byron height E&M 72 [in_i] Carol Byron blood pressure, diastolic 94 mm[Hg] Kristen Log blood pressure, systolic 146 mm[Hg] Patricia [facility] Body Mass Index (Ratio) 30.38 kg/m2 [facility] pressure, diastolic 94 mm[Hg] Pallavi cheng Byron blood pressure, systolic 146 mm[Hg] Any gerardo Byron pulse rate 66 /min Carol Byron oxygen saturation, oximetry 98 % Carol Byron weight E&M 224 [lb_av] Carol Byron blood pressure, cuff size large Pallavi cheng Byron height E&M 72 [in_i] [facility] (Ratio) 29.97 kg/m2 Timi [facility] blood pressure, diastolic 85 mm[Hg] Kristen Log blood pressure, systolic 139 mm[Hg] Patricia [facility] blood pressure, diastolic 85 mm[Hg] Татьяна austin Toomsuba blood pressure, systolic 139 mm[Hg] [facility] ernesto Mcdonald oxygen saturation, oximetry [...] pressure, diastolic 114 mm[Hg] Stevo ramírez Fendler CERTIFIED FAMILY MEDIATOR blood pressure, systolic 186 mm[Hg] Lisset Pricedler CERTIFIED FAMILY MEDIATOR respiratory rate E&M 18 /min Tomy pond Fendler CERTIFIED FAMILY MEDIATOR pulse rate 92 /min Ines Pricedle r CERTIFIED FAMILY MEDIATOR weight E&M 216 [lb_av] Ines Pricedle r CERTIFIED FAMILY MEDIATOR height E&M 72 [in_i] Ines Pricedle r CERTIFIED FAMILY MEDIATOR Body Mass Index (Ratio) 29.29 kg/m2 Triny Gallagher blood pressure, diastolic 108 mm[Hg] Li nkLogic blood pressure, systolic 150 mm[Hg] Patricia kLogic blood pressure, diastolic 108 mm[Hg] Ca therine Topmost blood pressure, systolic 150 mm[Hg] Cat herine Topmost oxygen saturation, oximetry 97 % Vanessa Topmost respiratory rate E&M 16 /min Catheri ne Ryan pulse rate 74 /min Vanessa Ryan weight E&M 216 [lb_av] Vanessa Ryan blood pressure, cuff size regular Ca therine Ryan height E&M 72 [in_i] Vanessa Ryan weight E&M 222 [lb_av] Meghann Lyon Body [...] hel Slusser respiratory rate E&M 16 /min Qyuen Slusser oxygen saturation, oximetry 98 % Quyen Slusser pulse rate 60 /min Quyen Slusser weight E&M 208 [lb_av] Quyen Slusser height E&M 72 [in_i] Uqyen Slusser Body Mass Index (Ratio) 28.88 kg/m2 [...] holley Diaz respiratory rate E&M 16 /min Proctor Diaz oxygen saturation, oximetry 95 % Una [...] Apolinar Dominguez pulse rate 74 /min Caroline trisatn weight E&M 205 [lb_av] Caroline Gutierrez sofiajosé [...] pressure, syst olic, right arm 187 mm[Hg] Egrri Herman blood pressure, diastolic 126 mm[Hg] Ks neil Herman blood pressure, systolic 185 mm[Hg] [...] Mass Index (Ratio) 29.70 kg/m2 Anea thomas [facility] blood pressure, scanlon tolic, left arm 106 mm[Hg] Aneatris [facility] blood pressure, systolic, left arm 150 mm [Hg] Aneatris [facility] blood pressure, scanlon tolic, right arm 107 mm[Hg] Aneatris [facility] blood pressure, syst olic, right arm 154 mm[Hg] Aneatris [facility] blood pressure, diastolic 107 mm[Hg] An eatris [facility] blood pressure, systolic 154 mm[Hg] Ane atris [facility] pulse rate 73 /min Aneatris Brown oxygen saturation, oximetry 99 % Aneatris Brown respiratory rate E&M 17 /min Aneatri s [facility] weight E&M 219 [lb_av] Aneatris Brown Body [...] Cruz call Crisostomo pulse rate 65 /min Jaydne Powerran oxygen saturation, oximetry 98 % Jayden [...] pressure, scanlon tolic, left arm 94 mm[Hg] [facility]ost[facility] blood pressure, systolic, left arm 137 mm [Hg] [facility], scanlon tolic, right arm 97 mm[Hg] [facility] blood pressure, syst olic, right arm 147 mm[Hg] [facility] blood pressure, diastolic 97 mm[Hg] Bowden Crisostomo blood pressure, systolic 147 mm[Hg] [facility] pulse rate 65 /min [facility] oxygen saturation, oximetry 10 % [facility] respiratory rate E&M 16 /min [facility] weight E&M 200 [lb_av] [facility] Crisostomo blood pressure, diastolic 96 mm[Hg] He ather Blunt blood pressure, systolic 140 mm[Hg] Hea ther Blunt pulse rate 72 /min Ernestien Blunt oxygen saturation, oximetry 99 % Ernestine Blunt respiratory rate E&M 16 /min Ernestine Blunt weight E&M 199 [lb_av] Ernestine Blunt blood pressure, scanlon tolic, standing 80 mm[Hg] Christen Pinzon blood pressure, systolic, standing 120 mm [Hg] Christen Pinzon blood pressure, diastolic, sitting 82 mm[ Hg] Christen Pinzon blood pressure, systolic, sitting 128 mm[ Hg] Marianelanie Glendive blood pressure, scanlon tolic, supine, right arm 88 [facility], syst olic, supine, r arm 136 [facility] blood pressure, scanlon tolic, left arm 88 mm[Hg] [facility] blood pressure, systolic, left arm 128 mm [Hg] Marianelanie Jeromy blood pressure, scanlon tolic, right arm 82 mm[Hg] Britducnie Jeromy blood pressure, syst olic, right arm 128 mm[Hg] [facility] blood pressure, diastolic, supine 82 mm[H g] [facility] Glend[facility] blood pressure, syst olic, supine E&M 128 mm[Hg] [facility] pulse rate 93 /min Christen Pedersond en oxygen saturation, oximetry 99 % [facility] Pedersond[facility] respiratory rate E&M 18 /min Trinyduc wesley Glendive weight E&M 197 [lb_av] Brittannie Bgd en [...] Burks RN blood pressure, systolic 148 mm[Hg] Octaivo Burks RN pulse rate 70 /min Octavio [...] Not Estab. platelet count 297 X10E3/UL LinkLogic 002-800 0962/11 /07 red blood cell distribution width 12.9 [...] LinkLogic 3.5-5.2 sodium, serum 140 mmol/L LinkLogic 954-657 4554/11 /07 urea nitrogen/creatinine ratio, serum 16 LinkLogic [...] iron binding capacity, unsaturated 293 ug/dL LinkLogic 060-208 0127/09 /24 iron binding capacity, total 363 ug/dL LinkLogic 619-220 9220/09 /24 alanine aminotransferase (SGPT), serum 30 1/L LinkLogic 0-32 aspartate aminotransferase (SGOT), serum 22 1/L LinkLogic 0-40 alkaline phosphatase, serum 132 1/L LinkLogic 39-117 High bilirubin, serum, total 0.3 mg/dL LinkLogic 0.0-1.2 albumin/globulin ratio, serum 1.3 LinkLogic 1.2-2.2 globulin, serum 3.3 LinkLogic 1.5-4.5 albumin, serum 4.4 g/dL LinkLogic 3.8-4.8 protein, total, serum 7.7 g/dL LinkLogic 6.0-8.5 calcium, serum 9.7 mg/dL [facility] carbon dioxide, venous blood 24 mmol/L LinkLogic 20-29 chloride, serum 97 mmol/L LinkLogic 96-106 potassium, serum 4.2 mmol/L LinkLogic 3.5-5.2 sodium, serum 138 mmol/L LinkLogic 867-666 1264/09 /24 urea nitrogen/creatinine ratio, serum 18 LinkLogic [...] Not Estab. platelet count 290 X10E3/UL LinkLogic 978-874 4501/09 /24 red blood cell distribution width 13.3 [...] LinkLogic 3.5-5.2 sodium, serum 140 mmol/L LinkLogic 432-243 0478/10 /29 urea nitrogen/creatinine ratio, serum 14 LinkLogic [...] Not Estab. platelet count 270 X10E3/UL LinkLogic 971-236 4020/10 /29 red blood cell distribution width 13.4 [...] Octavio Burks RN mucus on urinalysis Yes Luarie Pyle RN urine crystals, microscopic moderate Laurie Pyle RN epithelial cells, urine, per microscopy many Laurie Pyle RN casts, urine none Laurie Pyle RN bacteria, urine microscopy moderate [facility] RBC urine by microscopy 40-60 [facility] WBC urine on microscopy none [facility] leukocyte esterase, urine, by dipstick Negative [facility] urobilinogen, urine, semiquantitative (dipstick) normal [facility] nitrite, urine, semiquantitative Negative [facility] RBC, urine, dipstick 250 [facility] bilirubin, urine Negative [facility] ketones, urine, by test strip Negative [facility] glucose, urine, semiquantitative normal [facility] protein, urine, semiquantitative (dipstick) 25 [facility] pH, urine, semiquantitative 6.5 [facility] specific gravity, urine 1.020 [facility] urine color Yellow [facility] appearance, urine Slightly cloudy [facility] PTT patient 29.4 s [facility] prothrombin time (patient) 10.4 s [facility] international normalized ratio (INR) 1.0 [facility] creatinine, serum 0.96 mg/dL [facility] urea nitrogen, blood 15.1 mg/dL [facility] carbon dioxide, serum, total 26 mmol/L [facility] chloride, serum 103 mmol/L [facility] potassium, serum 4.0 mmol/L [facility] sodium, serum 137 mmol/L [facility] platelet count 259 10*3/uL [facility] hematocrit, blood 43.0 % [facility] hemoglobin, blood 14.8 g/dL [facility] erythrocyte (RBC) count 4.56 10*6/mm3 [facility] leukocyte count, blood 9.1 10*3/mm3 [facility] HISTORY OF MEDICATION USE Medication Status Instructions [...] ONE TAB. AT BEDTIME 10/25 - 04/30 Alicaj Townsend PRILOSEC 40 MG ORAL CAPSULE DELAYED [...] Provider drug use no Ines Pricedle r CERTIFIED FAMILY MEDIATOR alcohol use no Ines Pricerodney r CERTIFIED FAMILY MEDIATOR passive cigarette sm melody exposure yes Ines Pricerodneyr CERTIFIED FAMILY MEDIATOR smoking, year quit 2016 Ines Priceshantelle CERTIFIED FAMILY MEDIATOR number of years as a smoker 24 a Ines Priceshantelle CERTIFIED FAMILY MEDIATOR smoking, date started 7 Bonita Pricerodneyr CERTIFIED FAMILY MEDIATOR smoking history, tot al pack/year 2015 Ines Priceshantelle CERTIFIED FAMILY MEDIATOR smoking history, tot al pack/day 0.5 Ines Fenshantelle CERTIFIED FAMILY MEDIATOR cigarette use yes Ines Pricedread er CERTIFIED FAMILY MEDIATOR smoking status Former smoker Ines Price dreader CERTIFIED FAMILY MEDIATOR Exercise counseling Yes Ines Priceshantelle GARG drug [...] E&M revi ewed - no changes required iTmi Ross exercise type work out gym Carolgerardo [...] MD smoking, date started 7 Bonita Valdez CERTIFIED FAMILY MEDIATOR smoking history, tot al pack/day 0.5 Ines Valdez CERTIFIED FAMILY MEDIATOR cigarette use yes Ines mukherjee CERTIFIED FAMILY MEDIATOR smoking status Former smoker Ines pepper CERTIFIED FAMILY MEDIATOR Exercise counseling yes Ines Valdez NP social history E&M Marital Statu s: Wally ortiz: 2 children L taiwo with family/friends E thnicity: Smoking History: P brenda is a former smoker. Finn Johnson MD social history reviewed E&M revi ewed - no changes required Finn Johnson MD exercise type work out gym Vanessa Topmost physical exercise, f requency, days per week 2 /wk Vanessa Topmost caffeine use, averag e drinks per day 0 /d Vanessa Topmost passive cigarette sm melody exposure yes Vanessa Ryan smoking, year quit 2016 Vanessa Topmost number of years as a smoker 24 a Vanessa Topmost smoking, date started 1992 Cather chandana Ryan smoking history, tot al pack/year 24 Vanessa Ryan smoking history, tot al pack/day 10/16 Vanessa Topmost cigarette use yes Vanessa Ryan smoking status [...] Emmy Orozco exercise type work out gym [facility] physical exercise, f requency, days per week 2 /wk [facility] caffeine use, averag e drinks per day 0 /d [facility] passive cigarette sm melody exposure yes [facility] smoking, year quit 2016 [facility] number of years as a smoker 24 a [facility] smoking, date started 1992 Marleni [facility] smoking history, tot al pack/year 24 [facility] smoking history, tot al pack/day 10/16 [facility] cigarette use yes [facility] smoking status Former smoker [facility] social history reviewed E&M revi ewed - no changes required [facility] social history reviewed E&M revi ewed - no changes required Venkatesh Carbone MD exercise type work out gym [facility] physical exercise, f requency, days per week [...] Johnson MD exercise type work out gym [facility] physical exercise, f requency, days per week [...] Alicja Townsend smoking, date started 1992 Alicja Tonwsend smoking history, tot al pack/year 24 Alicja [...] Salazar MD exercise type work out gym [facility] physical exercise, f requency, days per week 2 /wk [facility] alcohol use, average drinks per day none [facility] alcohol use no [facility] [place] caffeine use, averag e drinks per day 0 /d [facility] [place] drug use no [facility] [place] smoking/tobacco cess ation, patient education and counseling yes Una Diaz passive cigarette sm melody exposure yes [facility] [place] smoking, year quit 2014 Un[facility] bonilla number of years as a smoker 24 a [facility] [place] smoking, date started 1992 Sera anderson [place] smoking history, tot al pack/year 24 Proctor [place] smoking history, tot al pack/day 1/4 [facility] [place] cigarette use yes [facility] [place] smoking status Current every day smoker Alma gutierres [place] smoking history, tot al pack/year 24 Laurie [...] MD exercise type work out gym [facility] [place] [facility] physical exercise, f requency, days per [...] alcohol use, average drinks per day none [facility] caffeine use, averag e drinks per day no Gerri [facility] drug use no Gerri [facility] passive cigarette sm melody exposure yes [facility] smoking/tobacco cess ation, patient education and [...] a smoker 10 years or m ore [facility] smoking, date started 1992 [facility] Blunt smoking history, tot al pack/year 21 Ernestine Blunt smoking history, tot al pack/day 10/16 Ernestine Blunt cigarette use yes Ernestine Blunt smoking status Current [facility] social history reviewed E&M benny gaines - no changes required [facility] exercise type wprk out gym [...] than 10 years LinkLogic smoking status Quit [facility] social history E&M Marital Statu s: [...] than 10 years LinkLog smoking status Smoker [facility] MENTAL STATUS Date Observation Value Provider [...] Payer name Policy type / Coverage type [place] red republic[employer] [facility] [id number] ADVANCE DIRECTIVES Name Date DISCUSSED - NO DECISION MADE TREATMENT PLAN Date Name Performer [id number],S,n o angina H er updated medication list for this problem includes: Lopressor 100 Mg Tablet (Metoprolol tartrate) ..... Take 1 tablet by mouth once a day take 1 tablet by mouth twice a day Diltiazem Hcl 60 Mg Tablet (Diltiazem hcl) ..... Take 1 tablet by mouth twice a day Albertasad Stacy [id number],S,asx Albert palma [id number],S, H er updated medication list for this problem includes: Lopressor 100 Mg Tablet (Metoprolol tartrate) ..... Take 1 tablet by mouth once a day take 1 tablet by mouth twice a day Diltiazem Hcl 60 Mg Tablet (Diltiazem hcl) ..... Take 1 tablet by mouth twice a day Albert Tawanna [id number],C,T he patient is using CPAP on a regular basis. The patient has been benefiting from therapy and should continue use. [facility] [id number],S,i ncrease lopressor to 100mg H er updated [...] Take 1 tablet by mouth every evening [facility] [id number],S,P t continues heaviness, throbbing, and swelling in [...] tablet by mouth every evening Albert Stacy [id number],W,P atient has left LE veous insufficiency, she is wearing stocking. reflux doppler ordered to be done and read by Dr. Johnson. O rders: P tracy 5-10 (CPT-05568) V enous Doppler Bilateral LE - Reflux (CPT-32814) Venkatesh Carbone MD [id number],S, Timi Robles i [id number],C,see #1 Timi chance [id number],C,H aving episodes of random CP and SOB, unclear if it is related to her HTN, or spasms, will start her on Diltiazem 60 mg BID for better BP control and see if her sxs improve. Timi Ross [id number],C,H aving episodes of random CP and SOB, unclear if it is related to her HTN, or spasms, will start her on Diltiazem 60 mg BID for better BP control and see if her sxs improve. & #13;BP today: 146/94 P rior BP: 139/85 (04/25/2023) Labs Reviewed: C reat: 1.10 (07/06/2020) Timi Ross [id number],C, E P STUDY 08/2019:: O perative Findings: [...] node physiology after final ablation. Timi Ross [id number],C,h aving week long complaints of intermittent chest [...] spoke with ER MD. Jackie Chatterjee NP [id number],S, L ast remote PPM check 04/18/22 battery 5 months device check 01/2022 1. yr 7 months will recheck device in 4 months Venkatesh Carbone MD [id number],S,h x quit, 2017 Venkatesh Carbone MD [id number],C,s lee study 2017. would recommend rechecking home sleep study given reported symptoms. SOB, daytime sleepiness, restless sleep, snoring. Venkatesh Carbone MD [id number],C,s /p ppm. Battery Longevity: 5 months remaining [...] mouth twice a day Venkatesh Carbone MD [id number],C, E P STUDY 08/2019:: O perative Findings: [...] mouth twice a day Venkatesh Carbone MD [id number],W,p t has not toprol xl 200mg daily [...] oximetry, respiratory flow rate. Venkatesh Carbone MD [id number],C, L ast remote PPM check 04/18/22 battery 5 months device check 01/2022 1. yr 7 months will recheck device in 4 months Ines Valdez CERTIFIED FAMILY MEDIATOR [id number],C,s /p ppm. Battery Longevity: 5 months remaining % Pacing: RA - 26.0% RV - 1.0% T echnician Summary: 5 months on battery. Appropriate device f unction. Lead trends appear stable. device check 01/2022 battery 1.7yrs, remote check 04/2022 5 months. will recheck device check in 4 months. Ines Valdez CERTIFIED FAMILY MEDIATOR [id number],C,s benjamin study 2017. would recommend rechecking home sleep study given reported symptoms. SOB, daytime sleepiness, restless sleep, snoring. Ines Villalobosdejah GARG [id number],Wally E P STUDY 08/2019:: O perative Findings: [...] by mouth twice a day Ines Valdez CERTIFIED FAMILY MEDIATOR [id number],C,p t has not toprol xl 200mg daily [...] oximetry, respiratory flow rate. Ines Valdez NP [id number],C,h x , 2016 Ines Valdez NP [id number],C, C omplaining of palpitations and SOB. BP markedly elevated. Will increase Metoprolol to 200 mg daily. Will obtain echo and stress test H er updated medication list for this problem includes: Metoprolol Succinate 200 Mg Tablet Extended Release 24 Hr (Metoprolol succinate) ..... 1 tablet once a day Shruthi Gallagher [id number],C, C omplaining of palpitations and SOB. BP markedly elevated. Will increase Metoprolol to 200 mg daily. Will obtain echo and stress test Shruthi Gallagher [id number],C, N o chest pain, complaining of palpitations H er updated medication list for this problem includes: Metoprolol Succinate 200 Mg Tablet Extended Release 24 Hr (Metoprolol succinate) ..... 1 tablet once a day Shruthi Gallagher [id number],C, W ill increase Metoprolol to 200 mg [...] (08/19/2023) LDL: 162 (08/19/2023) T (08/19/2023) [facility] Cardiology:cath sche duled 03/10 C P and SOB at minimal exertion [facility] Cardiology:cath scheduled 03/10 T homas [facility] Cardiology:Complains of worsening SOB upon exertion. Notices [...] well controlled, she will continue to monitor. [facility] Cardiology:no angina H er updated medication list for this problem includes: Lopressor 100 Mg Tablet (Metoprolol tartrate) ..... Take 1 tablet by mouth once a day take 1 tablet by mouth twice a day Diltiazem Hcl 60 Mg Tablet (Diltiazem hcl) ..... Take 1 tablet by mouth twice a day [facility] Cardiology:asx [facility] Cardiology: H er updated medication list for this problem includes: Lopressor 100 Mg Tablet (Metoprolol tartrate) ..... Take 1 tablet by mouth once a day take 1 tablet by mouth twice a day Diltiazem Hcl 60 Mg Tablet (Diltiazem hcl) ..... Take 1 tablet by mouth twice a day [facility] Cardiology:The patie nt is using CPAP on a regular basis. The patient has been benefiting from therapy and should continue use. [facility] Cardiology:increase lopressor to 100mg H er updated [...] Take 1 tablet by mouth every evening [facility] Cardiology:Pt contin ues heaviness, throbbing, and swelling [...] Dr. Johnson. O rders: P tracy 5-10 (CPT-24897) V enous Doppler Bilateral LE - Reflux (CPT-65020) Venkatesh Carbone MD Electrophysiology--billed as hig h [...] (Metoprolol succinate) ..... One tab. daily Jae [facility] Cardiology follow up :She continues to have palpitations and shortness of breath similar to previously described. Getting worse. Will proceed to testing and add echo, CXR, BNP and COVID-19 antibodies. Jae [facility] Cardiology follow up :She continues to have palpitations and shortness of breath similar to previously described. Getting worse. Will proceed to testing and add echo, CXR, BNP and COVID-19 antibodies. Jae [facility] Electrophysiology - completed : H er updated [...] One tab. daily Orders: S tress Routine (CPT-16947) Stress Nuc 10/2019: E TT Summary 1 . Normal exercise capacity 2 . Normal hemodynamic response to exercise 3 . No diagnostic ST or T changes 4 . No significant arrhythmias 5 . There is no evidence for exercise-induced myocardial ischemia . ............................................... ...................Brenda Melgar MD November 10, 2018 10:28 AM Semaj Solomon Electrophysiology - completed : O rders: F VC - 69120 (53386) F RC - 65717 (36334) D LCO - 88005 (23497) 9 9215 HIGH Complex (CPT-74043) Last PFTS 2016: C onclusions: M ild [...] (Metoprolol succinate) ..... One tab. daily [facility] Cardiology follow up :Orders: C omplete Echo (CPT-70470) S tress Exercise Cardiolite (CPT-87361) [facility] Cardiology follow up :Orders: C omplete Echo (CPT-48176) S tress Exercise Cardiolite (CPT-80296) [facility] Cardiology Follow up :Pacemaker function satisfactory. Juan Manuel Toledo MD Cardiology Follow up :Elevated in the office today; will continue to monitor. She stopped her lisinopril but continues metoprolol and HCTZ. Juan Manuel Tloedo MD Cardiology Follow up :SOB with mild [...] STOP SMOKING; SMOKING CESSATION TECHNIQUES DISCUSSED. [facility] Cardiology:Pt compla ins of difficulty controlling BP. [...] for a repeat blood pressure check tomorrow. uJan Manuel Toledo MD follow up: T he [...] hr range of 51-118 with c/o of mws-dfpetnhi-gajyiwpaozjfoey-dizziness-blurred vision-near syncopy (07/10/2007) N uclear Stress Findings: [...] pressure of 35mmHG (06/11/2007) Orders: E KG (CPT-28728) Finn Johnson MD office visit: H er [...] hr range of 51-118 with c/o of rbr-tsbkyxkl-kzkjefyinsvpljj-dizziness-blurred vision-near syncopy (07/10/2007) N uclear Stress Findings: [...] pressure of 35mmHG (06/11/2007) Orders: E KG (CPT-68404) Ray Mon MD cp: H er updated medication list for this problem includes: Metoprolol Tartrate 100 Mg Tabs (Metoprolol tartrate) ..... 1 tab bid Accuretic 20-12.5 Mg Tabs (Quinapril-hydrochlorothiazide) ..... Twotabs. daily Orders: R enal Artery Duplex (CPT-34456) Finn Johnson MD cp: H er updated medication list for this problem includes: Metoprolol Tartrate 100 Mg Tabs (Metoprolol tartrate) ..... 1 tab bid Accuretic 20-12.5 Mg Tabs (Quinapril-hydrochlorothiazide) ..... Twotabs. daily Finn Johnson MD PLEASE SIGN/CASSANDRA : O rders: D ual Chamber w/o Reprogramming (CPT-71560) Finn Johnson MD PLEASE SIGN/CASSANDRA : H [...] - Routi ne Stress Routine DLCO - 46235 FRC - 82389 FVC - 83997 Complete Echo Sleep Study Home Stress Routine [...] ne Complete Echo Stress Routine DLCO - 84285 FRC - 43963 FVC - 01955 X-Ray, Chest - Routi ne Stress Routine DLCO - 60036 FRC - 05353 FVC - 85906 X-Ray, Chest - Routi ne DLCO - 03002 FRC - 14899 FVC - 47238 PARTIAL THROMBOPLAST IN TIME, ACTIVATED BASIC METABOLIC PANE L W/EGFR CBC (INCLUDES DIFF/P LT) DLCO - 15737 FRC - 11307 FVC - 98981 CT Cardiac with cont rast (Pre-Ablation) ABLATION w/ Anesthes ia Stress Exercise Card iolite Complete Echo Complete Echo Other Test Renal Artery Duplex Sleep Study Home Complete Echo Carotid Duplex Bilat eral DLCO - 84841 FRC - 92106 FVC - 31383 COMPREHENSIVE METABO LIC PANEL W/EGFR D-DIMER, QUANTITATIV [...] completed FVC / MVV with bronchodilator - 19505 Finn Johnson MD completed FRC - 41690 Finn Johnson MD completed SpO2 w/o 6min walk/titration Finn Johnson MD completed DLCO - 26237 Finn Johnson MD complete d EKG Venkatesh ryan MD completed Protime Ray Mon MD completed EKG Venkatesh ryan MD completed Pacemaker Interrogation, Remote (Tech) Finn Johnson MD INTERROGATION REMOTE </90 D FOREIGN STUDENT ADVISER TEACHER REVIEW completed Pacemaker Interrogation, Remote (Prof) Finn Johnson MD INTERROGATION EVAL REMOTE </90 D 1/2/FACTORY SUPERINTENDENT LEAD P completed ICM Interrogation, Remote (Prof) Finn Johnson MD INTERROGATION EVAL REMOTE </30 D CV MNTR SYS completed ICM Interrogation, Remote (Tech) Finn Johnson MD INTERROGATION EVAL REMOTE </30 D TECH REVIEW completed Pacemaker Interrogation, Remote (Tech) Finn Johnson MD INTERROGATION REMOTE </90 D FOREIGN STUDENT ADVISER TEACHER REVIEW completed Pacemaker Interrogation, Remote (Prof) Finn Johnson MD INTERROGATION EVAL REMOTE </90 D 1/2/FACTORY SUPERINTENDENT LEAD P completed Cardiolite, 2 units Finn Johnson MD c ompleted SPECT Images Aren Alexander MD completed Stress EKG Brenda Melgar MD completed Pacemaker Interrogation, Remote (Tech) Juan Manuel Toledo MD INTERROGATION REMOTE </90 D FOREIGN STUDENT ADVISER TEACHER REVIEW completed Pacemaker Interrogation, Remote (Prof) Juan Manuel Toledo MD INTERROGATION EVAL REMOTE </90 D 1/2/FACTORY SUPERINTENDENT LEAD P completed Pacemaker Interrogation, Remote (Tech) Juan Manuel Toledo MD INTERROGATION REMOTE </90 D FOREIGN STUDENT ADVISER TEACHER REVIEW completed Pacemaker Interrogation, Remote (Prof) Juan Manuel Toledo MD INTERROGATION EVAL REMOTE </90 D 1/2/FACTORY SUPERINTENDENT LEAD P completed EKG Juan Manuel Toledo MD complet ed Pacemaker Interrogation, Remote (Tech) Finn Johnson MD INTERROGATION REMOTE </90 D FOREIGN STUDENT ADVISER TEACHER REVIEW completed Pacemaker Interrogation, Remote (Prof) Finn Johnson MD INTERROGATION EVAL REMOTE </90 D 1/2/FACTORY SUPERINTENDENT LEAD P completed Pacemaker Interrogation, Remote (Tech) Finn Johnson MD INTERROGATION REMOTE </90 D FOREIGN STUDENT ADVISER TEACHER REVIEW completed Pacemaker Interrogation, Remote (Prof) Finn Johnson MD INTERROGATION EVAL REMOTE </90 D 1/2/FACTORY SUPERINTENDENT LEAD P completed EKG Lynette Salazar MD completed SNOMED-CT: [id number] Current Medications Documented Lynette Salazar MD completed Pacemaker Interrogation, Remote (Tech) Finn Johnson MD INTERROGATION REMOTE </90 D FOREIGN STUDENT ADVISER TEACHER REVIEW completed Pacemaker Interrogation, Remote (Prof) Finn Johnson MD INTERROGATION EVAL REMOTE </90 D 1/2/FACTORY SUPERINTENDENT LEAD P completed Pacemaker Interrogation, Remote (Tech) Finn Johnson MD INTERROGATION REMOTE </90 D FOREIGN STUDENT ADVISER TEACHER REVIEW completed Pacemaker Interrogation, Remote (Prof) Finn Johnson MD INTERROGATION EVAL REMOTE </90 D 1/2/FACTORY SUPERINTENDENT LEAD P completed SNOMED-CT: [id number] Smoking Cessation Counseling Finn Johnson MD completed EKG Finn Johnosn MD completed SNOMED-CT: [id number] Current Medications Documented Finn Johnson MD completed Pacemaker Interrogation, Remote (Tech) Finn Johnson MD INTERROGATION REMOTE </90 D FOREIGN STUDENT ADVISER TEACHER REVIEW completed Pacemaker Interrogation, Remote (Prof) Finn Johnson MD INTERROGATION EVAL REMOTE </90 D 1/2/FACTORY SUPERINTENDENT LEAD P completed Pacemaker Interrogation, Remote (Tech) Finn Johnson MD INTERROGATION REMOTE </90 D FOREIGN STUDENT ADVISER TEACHER REVIEW completed Pacemaker Interrogation, Remote (Prof) Finn Johnson MD INTERROGATION EVAL REMOTE </90 D 1/2/FACTORY SUPERINTENDENT LEAD P completed Pacemaker Interrogation, Remote (Tech) Finn Johnson MD INTERROGATION REMOTE </90 D FOREIGN STUDENT ADVISER TEACHER REVIEW completed Pacemaker Interrogation, Remote (Prof) Finn Johnson MD INTERROGATION EVAL REMOTE </90 D 1/2/FACTORY SUPERINTENDENT LEAD P completed Pacemaker Interrogation, Remote (Tech) Finn Johnson MD INTERROGATION REMOTE </90 D FOREIGN STUDENT ADVISER TEACHER REVIEW completed Pacemaker Interrogation, Remote (Prof) Finn Johnson MD INTERROGATION EVAL REMOTE </90 D 1/2/FACTORY SUPERINTENDENT LEAD P completed BLOOD COUNT HEMOGLOBIN Finn Johnson MD completed FVC - 14502 Finn Johnson MD completed FRC - 88802 Finn Johnson MD completed DLCO - 90366 Finn Johnson MD complete d SNOMED-CT: [id number] Smoking Cessation Counseling Finn Johnson MD completed SNOMED-CT: [id number] Current Medications Documented Finn Johnson MD completed Pacemaker Interrogation, Remote (Tech) Juan Manuel Toledo MD INTERROGATION REMOTE </90 D FOREIGN STUDENT ADVISER TEACHER REVIEW completed Pacemaker Interrogation, Remote (Prof) Juan Manuel Toledo MD INTERROGATION EVAL REMOTE </90 D 1/2/FACTORY SUPERINTENDENT LEAD P completed Pacemaker Interrogation, Remote (Tech) Finn Johnson MD INTERROGATION REMOTE </90 D FOREIGN STUDENT ADVISER TEACHER REVIEW completed Pacemaker Interrogation, Remote (Prof) Finn Johnson MD INTERROGATION EVAL REMOTE </90 D 1/2/FACTORY SUPERINTENDENT LEAD P completed SNOMED-CT: [id number] Smoking Cessation Counseling Juan Manuel Toledo MD completed SNOMED-CT: [id number] Physical Exam, Performed: Pulse Exam of Foot Juan Manuel Toledo MD completed EKG Juan Manuel Toledo MD complet ed SNOMED-CT: [id number] Current Medications Documented Juan Manuel Toledo MD completed Pacemaker Interrogation, Remote (Tech) Finn Johnson MD INTERROGATION REMOTE </90 D FOREIGN STUDENT ADVISER TEACHER REVIEW completed Pacemaker Interrogation, Remote (Prof) Finn Johnson MD INTERROGATION EVAL REMOTE </90 D 1/2/FACTORY SUPERINTENDENT LEAD P completed Pacemaker Interrogation, Remote (Tech) Finn Johnson MD INTERROGATION REMOTE </90 D FOREIGN STUDENT ADVISER TEACHER REVIEW completed Pacemaker Interrogation, Remote (Prof) Finn Johnson MD INTERROGATION EVAL REMOTE </90 D 1/2/FACTORY SUPERINTENDENT LEAD P completed EKG Venkatesh ryan MD completed Pacemaker Interrogation, Remote (Tech) Finn Johnson MD INTERROGATION REMOTE </90 D FOREIGN STUDENT ADVISER TEACHER REVIEW completed Pacemaker Interrogation, Remote (Prof) Finn Johnson MD INTERROGATION EVAL REMOTE </90 D 1/2/FACTORY SUPERINTENDENT LEAD P completed ICM Interrogation, Remote (Prof) Finn Johnson MD INTERROGATION EVAL REMOTE </30 D CV MNTR SYS completed Pacemaker Interrogation, Remote (Tech) Finn Johnson MD INTERROGATION REMOTE </90 D FOREIGN STUDENT ADVISER TEACHER REVIEW completed Pacemaker Interrogation, Remote (Prof) Finn Johnson MD INTERROGATION EVAL REMOTE </90 D 1/2/FACTORY SUPERINTENDENT LEAD P completed EKG Finn Johnson MD completed Pacemaker Interrogation, Remote (Tech) Finn Johnson MD INTERROGATION REMOTE </90 D FOREIGN STUDENT ADVISER TEACHER REVIEW completed Pacemaker Interrogation, Remote (Prof) Finn Johnson MD INTERROGATION EVAL REMOTE </90 D 1/2/FACTORY SUPERINTENDENT LEAD P completed Pacemaker Interrogation, Remote (Tech) Finn Johnson MD INTERROGATION REMOTE </90 D FOREIGN STUDENT ADVISER TEACHER REVIEW completed Pacemaker Interrogation, Remote (Prof) Finn Johnson MD INTERROGATION EVAL REMOTE </90 D 1/2/FACTORY SUPERINTENDENT LEAD P completed EKG Finn Johnson MD [...]
--- OUTSIDE RECORDS SUMMARY | 2025-03-22 06:59 | XMS_ITS | Data Portability ---
Author Organization [facility], Main Office Address [address] [place] [address] Care Team Providers Care Regulatory Services Consultant Name Role Phone LUPE CHASE Primary Care [...] Lab lipid panel, serum 2024 025 [facility] (Lab), [address] [place], [address], 01/21/2025 13:12:12 CBC w/ auto diff 2024 025 [facility] (Lab), [address] [place], [address], 01/21/2025 13:07:04 TSH, serum or plasma 2024 025 [facility] (Lab), [address] [place], [address], 01/21/2025 13:40:35 CMP, serum or plasma 2024 025 [facility] (Lab), [address] [place], [address], 01/21/2025 13:12:22 vitamin D, 25-hydrox y, total, serum [email or web address] [facility] (Lab), [address] [place], [address], 02/03/2025 09:38:07 urinalysi s complete, reflex culture [address] (Lab), [address] [place], [address], 03/08/2025 12:47:43 BNP (B-type natriuret ic peptide), serum or plasma 2023 024 [facility] (Lab), [address] [place], [address], 07/15/2024 14:55:13 ige, total, serum 2023 [address] [email or web address] [facility] (Lab), [address] [place], [address], 09/08/2024 15:17:46 tb (M tuberculo sis), ifn-gamma helen, blood [email or web address] [facility] (Lab), [address] [place], [address], 09/08/2024 15:17:46 eosinophi l count, manual, blood (OBS) [email or web address] [place] [address] (Lab), [address] [place], [address], 09/08/2024 15:17:46 [address] s 1+2+3+4, serum [email or web address] [facility] (Lab), [address] [place], [address], 09/08/2024 15:17:46 respirato ry allergen panel, [facility] A, serum 2023 024 [facility] (Lab), [address] [place], [address], 07/24/2024 11:56:07 respirato ry allergen panel - [facility] b [address] [place] [address] (Lab), [address] [place], [address], 09/08/2024 15:17:46 alpha-1-a ntitrypsi n (aat) phenotype , serum [email or web address] [facility] (Lab), [address] [place], [address], 09/08/2024 15:17:46 Referral neurologi nayla surgeon referral - Please call patient to schedule an appointme nt. Thank you. 2024 025 ESTELITA Veronica MD, [address] [facility], [address], [place], [address], 01/24/2025 12:10:36 gynecolog ist referral - Please call patient to schedule an appointme nt. Thank you. 2024 025 IRAIDA Thrasher DO, [address] [facility] [address], [place], [address], 01/20/2025 11:21:02 hepatolog ist referral - Please call patient to schedule an appointme nt. Thank you. 2024 025 ESTELITA Menon MD ([facility]), [address] [place], [address], 01/24/2025 12:10:36 pulmonolo gist referral - Please call patient to schedule an appointme nt. Thank you. 2024 025 ESTELITA Lal SOLID WASTE LANDFILL TECHNICIAN-C, [address] [facility], [facility] [address], [address], 01/24/2025 13:55:16 cardiolog ist referral - Please call patient to schedule an appointme nt. Thank you. 2024 025 [place], [address] [facility], [address], [address], 01/24/2025 12:25:12 psychiatr ist referral - Please call patient to schedule an appointme nt. Thank you. 2024 025 IRAIDA Burks CHIEF HYDROELECTRIC STATION OPERATOR, [address] [facility], [facility] [address], [place], [address], 01/25/2025 17:21:56 pulmonolo gist referral - Please call patient to schedule an appointme nt. Thank you 2024 025 [email or web address] Mariola Lal [facility], [address] [facility], [facility] [address], [place], [address], 01/26/2025 17:30:35 rheumatol ogist referral - Please call patient to schedule. 2023 024 [email or web address] [facility] (Rheumatology ), [address] [facility], , [place], [address], 12/16/2024 10:24:53 Procedures None recorded. Surgeries None recorded. Imaging MAMMO, screening , digital, bilateral 2024 025 [facility] (One Call Scheduling), [address] [place], [address], 01/19/2025 16:06:22 XR, cervical spine, 2 or 3 view 2024 025 [facility] (One Call Scheduling), [address] [place], [address], 01/25/2025 12:21:07 bone density - Please call patient to schedule. 2024 025 [facility] (One Call Scheduling), [address] [place], [address], 02/01/2025 15:11:20 CT, sinuses, w/o contrast [email or web address] (One Call Scheduling), [address] [place], [address], 01/24/2025 13:48:13 Medication Orders meloxicam 7.5 mg tablet 2024 025 [facility]09163, [address], [id number], 01/19/2025 15:51:53 Zyrtec 10 mg tablet 2024 025 [facility] #03181, [address], [id number], 01/19/2025 15:51:53 triamcino lone acetonide 0.1 % topical cream [address] [facility]82535, [address], [id number], 01/19/2025 15:14:11 oxybutyni n chloride 5 mg tablet [address] [facility] #93467, [address], [id number], 01/19/2025 15:13:47 Flovent HFA 110 mcg/actua tion aerosol inhaler 2023 024 IRAIDA [facility] #16890, [address], [place], [place], [id number], 07/15/2024 10:15:25 prednison e 20 mg tablet 2023 024 [facility] #07159, [address], [place], [place], [id number], 01/19/2025 15:13:58 Medrol (Kobe) 4 mg tablets in a dose pack [email or web address] [facility] #81480, [address], [place], [place], [id number], 08/23/2024 16:21:42 azithromy nidhi 250 mg tablet 2023 024 [email or web address] #65437, [address], [place], [place], [id number], 08/23/2024 16:21:22 Patient TargetsNo targets recorded. Patient Instructions Encounter Date Encounter Id Patient Instructions Last Modified By Organization Details Last Modified Time 06/16/2024 [id number] Follow up in July Prescriptions sent to pharmacy Recommend: Pneumococcal vaccine Tetanus vaccine Shingles vaccine Not available 06/16/2024 08:42:44 08/23/2024 [id number] Follow up in 4 months Prescription sent to pharmacy Obtain labs Tests: Referral: Rheumatology referral-rash and possible rheumatoid arthritis Recommend: Tetanus vaccine Shingles vaccine Not available 08/23/2024 16:33:31 Reason for Referral Chemical Cell Changer Referral for Butterfly rash Please call patient to schedule. Referring Physician: Lupe Chase, Internal Medicine, Encounter Date: 08/23/2024 Athletic Coordinator Referral for A sthma Please call patient to schedule an appointment. Thank you Referring Physician: Aravind Hillman, Internal Medicine, Encounter Date: 01/19/2025 Athletic Coordinator Referral for S leep apnea Please call patient to schedule an appointment. Thank you. Referring Physician: Aravind Hillman Internal Medicine, Encounter Date: 01/19/2025 Psychiatrist Referral for Mi xed anxiety and depressive disorder Please call patient to schedule an appointment. Thank you. Referring Physician: Aravind Hillman Internal Medicine, Encounter Date: 01/19/2025 Neurological Surgeon Referra l for Cervical radiculopathy Please call patient to schedule an appointment. Thank you. Referring Physician: Aravind Hillman Internal Medicine, Encounter Date: 01/19/2025 Still Operator Brandy Referral for Me tabolic dysfunction-associated steatohepatitis Please call patient to schedule an appointment. Thank you. Referring Physician: Aravind Hillman Internal Medicine, Encounter Date: 01/19/2025 Sr. Logistics Analyst Referral for Co ronary arteriosclerosis Please call patient to schedule an appointment. Thank you. Referring Physician: Aravind Hillman Internal Medicine, Encounter Date: 01/19/2025 Medical Education Coordinator Referral for Gy necologic examination Please call [...] mario No observ ation record ed. [email or web address] [facility] [address] [place] [address] , [place], [address], 09/06/2024 08:04:20 12/25/19 25 12/24/2024 XR, kidne y + urete r + bladd er No observ ation record ed. [email or web address] [address] , [place], [address], 12/24/2024 16:00:58 01/07/20 25 01/06/2025 XR, chest , 2 view No observ ation record ed. [address] [address], [place], [address], 01/12/2025 09:03:24 01/07/20 25 01/06/2025 CT, angio gram, chest , w/ contr ast No observ ation record ed. [address] [address], [place], [address], 01/12/2025 09:10:04 01/26/20 25 01/25/2025 XR, cervi nayla spine , 2 or 3 view [facility] [address] [facility] [place] [address] Patien t Name: REMEDIOS LIPSCOMB ion #: [id number] Sex: F : 1974 3 Dictat ed By: Hao Bar e Attend ing Physic rachel: TENZIN HEART Orderi ng Physic rachel: TENZIN HEART Exam Date: 2024 10:44 AM Exam Name: [...] a left chest pacema ker. Page 1 [facility] [address] [place] [address] [address] 8-3000 Patien t Name: REMEDIOS LIPSCOMB Access ion #: [id number] Sex: F : 1974 3 Dictat ed By: Hao lynn Attend ing Physic rachel: ROSEY HERRERA Physic rachel: MERCEDES HEARTTDAVIDSON A Exam Date: 2024 10:44 AM Exam Name: XR C SPINE 3V Admitt ing Diagno sis(es ): Electr onical ly Signed by: Hao lynn at 2024 11:18: 34 AM Page [email or web address] [facility] (Imaging) [address] [place], [address], 01/25/2025 15:13:28 01/26/20 25 01/25/2025 XR, cervi nayla spine , 2 or 3 view No observ ation record ed. [facility] (One Call Scheduling) [address] [place], [address], 01/25/2025 18:19:30 02/02/20 25 02/01/2025 scree perico breas t minh, bilat [facility] [address] [place] [address] 8-3000 Patien t Name: MARTA REMEDIOS Access ion #: [id number] Sex: F : 1974 9 Dictat [...] RECOMM ENDATI ON: Recomm end annual mammog anurag. ASSESS MENT: Page 1 [facility] [place] [address] Patien t Name: REMEDIOS LIPSCOMB Access ion #: [id number] Sex: F : 1974 9 Dictat ed By: Chitra Borrero Attend ing Physic rachel: ROSEY HERR[facility]A [facility] Physic rachel: TENZIN HEART Exam Date: 2024 09:44 AM Exam Name: MG OLVERA BREAST MINH BILAT Admitt ing Diagno sis(es ): BIRADS : 1 - Negati ve Electr onical ly Signed by: Chitra Borrero at 2024 10:26: 32 AM Page [email or web address] [facility] (Imaging) [address] [place], [address], 02/03/2025 09:57:33 02/02/20 25 02/01/2025 MAMMO , scree perico, digit al, bilat eral No observ ation record ed. [email or web address] [facility] [address] [place], [address], 02/02/2025 19:08:31 02/02/20 25 02/01/2025 DEXA, axial skele ton [facility] [place] [address] [place] [address] Patien t Name: REMEDIOS LIPSCOMB Access ion #: [id number] Sex: F : 1974 9 Locati [...] e of 1.7. Page 1 of 2 [facility] [place] Patien t Name: REMEDIOS LIPSCOMB Access ion #: [id number] Sex: F : 1974 9 Exam [...] 2:06 PM (CT) Page 2 of [email or web address] [facility] (Imaging) [address] [place], [address], 02/03/2025 09:57:33 02/02/2002/01/2025 bone densi ty No observ ation record ed. [email or web address] [facility] [address] [place], [address], 02/02/2025 19:08:31 02/03/20 25 02/02/2025 CT, cervi nayla spine , w/o contr ast [facility] [place] [address] [place] [address] [phone] Patien t Name: REMEDIOS LIPSCOMB Access ion #: [id number] Sex: F : 1974 8 Locati [...] 562.4 mGy*cm . Page 1 of 3 [facility] Name: REMEDIOS LIPSCOMB ion #: [id number] Sex: F : 1974 8 Exam [...] 4:06 PM (CT) Page 2 of 3 [facility] Patikevin Name: REMEDIOS LIPSCOMB ion #: [id number] Sex: F : 1974 8 Exam Date: 9:21 AM Exam Name: CT C SPINE WO Admitt ing Diagno sis(es ): DT: 4:06 PM (CT) Page 3 of [email or web address] [place] [address] (Imaging) [address] [place], [address], 02/03/2025 09:57:34 02/03/20 25 02/02/2025 imagi ng/di agnos tic resul t No observ ation record ed. [facility] [address] [place], [address], 02/02/2025 17:11:23 03/01/20 25 03/01/2025 imagi ng/di agnos tic resul t No observ ation record ed. LACLEDE [facility] [address] [facility] [address], [place], [address], 03/01/2025 15:14:03 Result Notes None recorded. Problems Name Problem SNOMED Code Status Onset Date Resolution Date Notes Provider Name and Address Organization Details Recorded Time Metatarsa lgia 32644263 Active Lupe Chase APRN [address], [address], [place], [address] , [employer] 4 17:29:30 Leukocyto sis 473745924 Active 2021 Not Available [facility] 3 07:36:52 Celluliti s of skin 450082539 Completed 202105/07/2024 Lupe Chase APRN [address], [address], [place], [address] , [employer] 4 17:29:48 Acute sinusitis 54489705 Completed 202105/07/2024 Lupe Chase APRN [address], [address], [place], [address] , [employer] 4 17:29:44 Backache 212051759 Completed Not Available [facility] 3 01:09:00 Increased frequency of urination 450587867 Completed Not Available [facility] 3 01:09:00 Pain in throat 284433638 Completed 202105/07/2024 Lupe Chase APRN [address], [address], [place], [address] , [employer] 4 17:30:30 Asthma 413258805 Active 2021 Lupe Chase APRN [address], [address], [place], [address] , [employer] 4 14:10:27 Abdominal pain 31707258 Completed Not Available [facility] 3 01:09:01 Increased blood pressure 18733885 Completed 05/07/[address], [address], [place], [address] , [employer] 4 17:29:55 Dysmenorr hea 006641153 Completed Not Available [facility] 3 01:09:01 Sleep pattern disturban ce 29667535 Completed Not Available [facility] 3 01:09:01 Eruption 674331909 Completed [address], [address], [place], [address] , [employer] 4 17:30:51 Chronic low back pain 019865757 Active [address], [address], [place], [address] , [employer] 4 14:10:37 Booth's neuroma of right foot 39699928492 9108 Active 2019 Not Available [facility] 3 07:36:52 Rib pain 028893174 Completed Not Available [facility] 3 01:09:02 Excessive growth of facial hair 464317435 Active [address], [address], [place], [address] , [employer] 4 17:31:01 Right lower quadrant pain 115534473 Completed Not Available [facility] 3 01:09:02 Pain in pelvis 66173148 Completed Not Available [facility] 3 01:09:02 Abscess of skin and/or subcutane ous tissue 05586132 Completed 202205/07/[address], [address], [place], [address] , [employer] 4 17:30:54 Sinusitis 53667592 Completed 05/07/2024 Aravind carrillo MD [address], [address], [place], [address] , [email or web address] [facility] 5 15:48:57 Migraine 54903569 Active Lupe Chase APRN [address], [address], [place], [address] , [place] [employer] [facility] 4 14:11:04 Menorrhag ia 783002941 Completed RADHA Milan [address], [address], [place], [address] , [email or web address] [facility] [employer] [facility] [employer] 3 20:02:43 Multiple infected superfici al wounds 552370898 Completed 202105/07/2024 Lupe Chase APRN [address], [address], [place], [address] , [email or web address] [facility] [employer] [facility] [employer] 4 17:30:36 Sinus tarsi syndrome 724383298 Active Lupe Chase APRN [address], [address], [place], [address] , [employer] [facility] [employer] 4 17:29:15 Ureteric stone of lower third of ureter 925891066 Completed Not Available [facility] 3 01:09:03 Foot pain 24179190 Completed Not Available [facility] 3 01:09:03 Anxiety 20435268 Active Not Available [facility] 3 07:36:52 Dysuria 69824769 Completed Not Available [facility] 3 01:09:04 Peroneal tendiniti s 42799551 Completed 05/07/2024 Lupe Chase APRN [address], [address], [place], [address] , [email or web address] [facility] 4 17:30:23 Upper respirato ry infection 95882761 Completed 202205/07/2024 Lupe Chase APRN [address], [address], [place], [address] , [employer] 4 16:32:12 Hyperlipi demia 30008494 Active 2021 Lupe Chase APRN [address], [address], [place], [address] , [employer] 4 14:10:43 Dyspnea on exertion 34238106 Active 2022 Lupe Chase APRN [address], [address], [place], [address] , [employer] 4 17:31:00 Verruca plantaris 83545243 Active 2018 Not Available [facility] 3 07:36:52 Capsuliti s 2415949 Active Not Available [facility] 3 07:36:52 Rhinitis 74811945 Completed Not Available [facility] 3 01:09:05 Primary osteoarth ritis of midfoot 808376975 Active 2018 Lupe Chase APRN [address], [address], [place], [address] , [employer] 4 17:30:19 Liver enzymes level above reference range 884864038 Completed 202105/07/2024 Lupe Chase APRN [address], [address], [place], [address] , [employer] 4 17:30:47 Prediabet es 238852486 Active [address], [place], [address] , [employer] 4 14:11:19 Exposure to SARS-CoV- 2 Completed Not Available [facility] 3 01:09:06 Fatigue 93596485 Active Lupe Chase APRN [address], [address], [place], [address] , [employer] 4 14:10:49 Dystrophi a unguium 99586978 Active 2020 Lupe Chase APRN [address], [address], [place], [address] , [place] [facility] 4 14:10:41 Pain in limb 13467497 Completed Not Available [facility] 3 01:09:07 Skin lesion 28185573 Completed Not Available [facility] 3 01:09:07 Kidney stone 31394693 Completed Lupe Chase APRN [address], [address], [place], [address] , [place] [facility] 4 17:31:06 Pain of multiple joints 20847191 Completed 202205/07/2024 Lupe Chase APRN [address], [address], [place], [address] , [place] [facility] [employer] [facility] 4 17:30:33 Sleep apnea 08148246 Active 2022 Lupe Chase APRN [address], [address], [place], [address] , [place] [facility] [employer] [facility] 4 14:11:24 Chronic abdominal pain 083341758 Active 2022 Lupe Chase APRN [address], [address], [place], [address] , [place] [facility] 4 17:29:51 Mixed anxiety and depressiv e disorder 487666357 Active 2022 Lupe Chase APRN [address], [address], [place], [address] , [place] [facility] 4 14:10:57 Cervical radiculop athy 34449478 Active 2022 Lupe Chase APRN [address], [address], [place], [address] , [place] [facility] 4 14:10:32 Metabolic dysfuncti on-associ ated steatohep atitis 397957233 Active 2022 Lupe Chase APRN [address], [address], [place], [address] , [employer] [facility] 4 14:11:07 Obesity 057166949 Active 2022 Lupe Chase APRN [address], [address], [place], [address] , [employer] [facility] [employer] [facility] 4 14:11:15 Menorrhag ia 372560187 Active 2022 Not Available [facility] 3 07:36:52 Eruption 942596092 Completed 202205/07/2024 Lupe Chase APRN [address], [address], [place], [address] , [employer] [facility] [employer] [facility] 4 17:30:51 Pain of toe of right foot 05614461036 9101 Completed 202205/07/[address], [place], [address] , [employer] [facility] 4 17:30:26 Kidney stone 65951336 Completed 202205/07/[address], [place], [address] , [employer] [facility] 4 17:31:05 Urinary incontine nce 496945219 Active [address], [place], [address] , [employer] [facility] [employer] [facility] 4 14:11:33 Essential hypertens ion 58592048 Active [address], [place], [address] , [employer] [facility] [employer] [facility] 4 17:29:01 Mass of upper limb 594997365 Active [address], [place], [address] , [employer] [facility] 4 17:14:15 Infection of big toe 222372617 Completed 202305/07/2024 Lupe Chase APRN [address], [address], [place], [address] , [facility] 4 17:29:58 Pain radiating to thoracic region left side 291534695 Completed 202305/07/2024 Lupe Chase APRN [address], [address], [place], [address] , [email or web address] [facility] [employer] [facility] 4 17:29:34 Nodule of lung 834655935 Active 2023 Lupe Chase APRN [address], [address], [place], [address] , [employer] [facility] [employer] [facility] 4 10:27:29 Ingrowing nail of toe of right foot 53652508102 602836 Completed 202305/07/[address], [place], [address] , [email or web address] [facility] [employer] [facility] 4 17:30:02 Dyspnea 895566056 Completed 202305/07/[address], [place], [address] , [email or web address] [facility] [employer] [facility] 4 17:29:40 Cardiac pacemaker in situ 474313501 Active [address], [place], [address] , [employer] [facility] 4 12:06:50 Arthritis 9267223 Active [address], [place], [address] , [employer] [facility] 4 11:17:36 Upper respirato ry infection 62288748 Active [address], [place], [address] , [place] [facility] 4 16:32:12 Pain in right foot 13965512930 9107 Active Lupe Chase APRN [address], [address], [place], [address] , [place] [facility] 4 16:46:00 Acute urticaria 220134503 Active 2023 Mariola Lal NP [address], [facility] [address], [place], [address] , [place] [facility] 4 10:12:48 Mitral valve regurgita tion 38149473 Active 2023 Lupe Chase APRN [address], [address] [address], [place], [address] , [place] [facility] 4 20:25:03 Sick sinus syndrome 85424489 Active 2023 Lupe Chase APRN [address], [address] [address], [place], [address] , [place] [facility] 4 20:25:36 Butterfly rash 08905378 Active 2023 Lupe Chase APRN [address], [address] [address], [place], [address] , [place] [facility] 4 16:26:12 Coronary arteriosc lerosis 61928157 Active 2024 Aravind carrillo MD [address], [address], [address] , [place] [facility] 5 09:22:46 Vitamin D deficienc y 55513361 Active 2024 Aravind carrillo MD [address], [facility] [address], [place], [address] , [place] [facility] 5 15:30:33 Pain in face 27214520 Active 2024 Aravind carrillo MD [address], [address], [place], [address] , [facility] 5 15:31:48 Sinusitis 81021769 Active 2024 Aravind carrillo MD [address], [address], [place], [address] , [facility] 5 15:48:57 Recurrent sinusitis 924377367 Active 2024 Pallavi Pulido RMA null, [place] [facility] 5 14:01:33 Chronic neck pain 48041788961 07 Active 2024 Pallavi Pulido RMA null, [place] [facility] 5 18:19:47 Hypokalem ia 33503457 Active 2024 Pallavi Pulido RMA null, [place] - [facility] 5 15:34:04 Hyperglyc emia 57294764 Active 2024 Pallavi Pulido RMA null, [place] [facility] 5 15:34:55 Liver function tests outside reference range 158128248 Active 2024 Pallavi Pulido RMA null, [place] [facility] 5 15:37:21 Notes:Medical History: Anxie ty [...] Lockwood DPM [address], [address], [place], [address], [facility] 02/12/2024 16:28:22 07/13/20 19 Date of Last Colonoscopy completed Not Available [facility] 12/11/2022 00:55:40 06/02/20 19 Cholecystectomy completed Not Available [facility] 12/11/2022 00:55:45 Pacemaker completed Not Available [facility] 12/11/2022 00:55:45 ligation of bilateral fallopian tubes completed Not Available [facility] 12/11/2022 00:55:45 Hysterectomy completed Tasha Hassan MA [facility] 06/16/2024 08:31:26 Neck completed Pallavi Pulido Amy [facility] [employer] [facility] 01/19/2025 15:15:40 insertion of stent into femoral artery completed Pallavi Pulido Amy [facility] [employer] [facility] 01/19/2025 15:16:01 Imaging Results None recorded. Procedure Notes None recorded. Medical Equipment None Reported. Allergies Allergen ID Allergen Name Allergen Category Reaction Reaction Severity Criticality Documentation Date Start Date Code Code System Note Provider Name and Address Organization Details Recorded Time 2386 Product containin g penicilli n (product) medicatio n Not available Not available Not available 12/11/2022 90604 8001 SNOMED Other react ions and sever ities : 'Adve rse react ion to subst ance' . Lupe Chase, RICK [address] [facility], [facility] [address], [place], [address] [place] [address] [employer] [facility] 16:45:37 Medications Name Sig Start Date Stop [...] 5 x 2 days, 4x 2 days, 9z5sxfy, 1v5asdw, 5f8tnhv PO in AM active Not Available Not [...] mometason e 50 mcg/actua tion nasal spray [place] 2 sprays every day by intranas al [...] Not Available Not Available No t Available Ophir 10 mg-325 mg tablet Take 1 tablet [...] e 50 mcg/actua tion nasal spray,monse pension [place] 2 sprays every day by intranas al [...] Updated DateTime 5 180.34 cm 27.9 kg/m2 70088.4 7 g 97.1 [degF] 72 /min 114 mm[Hg] 70 mm[Hg] DENTON López [employer] 5 15:17:47 Date Recorded Body height Body mass index (BMI) Body weight Body temperature Heart rate Oxygen saturation Oxygen saturation in Arterial blood by Pulse oximetry Systolic blood pressure Diastolic blood pressure Provider Name and Address Organization Details Last Updated DateTime 4 180.34 cm 33.9 kg/m2 036016. 95 g 95.2 [degF] 71 /min 98 % 98 % 130 mm[Hg] 92 mm[Hg] Tasha Hassan MA [email or web address] [facility] [employer] 4 08:29:07 Date Recorded Body height Body mass index (BMI) Body weight Body temperature Heart rate Oxygen saturation Oxygen saturation in Arterial blood by Pulse oximetry Systolic blood pressure Diastolic blood pressure Provider Name and Address Organization Details Last Updated DateTime 4 180.34 cm 33.9 kg/m2 502836. 95 g 98.1 [degF] 61 /min 98 % 98 % 120 mm[Hg] 74 mm[Hg] Tonie Mathews CMA [place] [facility] [employer] [facility] 4 09:48:09 Date Recorded Body height Body mass index (BMI) Body weight Body temperature Heart rate Oxygen saturation Oxygen saturation in Arterial blood by Pulse oximetry Systolic blood pressure Diastolic blood pressure Provider Name and Address Organization Details Last Updated DateTime 4 180.34 cm 32.8 kg/m2 880931. 21 g 97.2 [degF] 59 /min 99 % 99 % 118 mm[Hg] 76 mm[Hg] Tasha Hassan MA [place] [facility] [employer] [facility] 4 16:11:12 Social History Question Answer Notes LastModified by Organizat ion Details LastModified Time Tobacco Smoking Status Former Smoker quit 2015 Not Available [facility] 12/11/2022 00:54:06 Do You Have An Advance Directive? No MIGRATION.02679 16700 Information not available 12/11/2022 What Is Your Level Of Caffeine Consumption? None MIGRATION.90740 94091 Information not available 12/11/2022 How Much Tobacco Do You Chew? None MIGRATION.97938 86600 Information not available 12/11/2022 In The 14 Days Before Symptom Onset, Have You Had Close Contact With A Laboratory-confi rmed COVID-19 While That Case Was Ill? No MIGRATION.36092 99603 Information not available 12/11/2022 In The 14 Days Before Symptom Onset, Have You Had Close Contact With A Person Who Is Under Investigation For COVID-19 While That Person Was Ill? No MIGRATION.14678 31493 Information not available 12/11/2022 What Type Of Diet Are You Following? REGULAR MIGRATION.86653 24447 Information not available 12/11/2022 Which Illicit Or Recreational Drugs Have You Used? None MIGRATION.34614 48815 Information not available 12/11/2022 Have There Been Any Changes To Your Family Or Social Situation? No MIGRATION.81959 22098 Information not available 12/11/2022 What Is The Fluoride Status Of Your Home? Unknown MIGRATION.40900 78486 Information not available 12/11/2022 When Did You Quit Smoking? 1-5yearssincelastc igarette MIGRATION.63230 84508 Information not available 12/11/2022 Are There Any Guns Present In Your Home? No MIGRATION.38857 77912 Information not available 12/11/2022 Do You Use Insect Repellent Routinely? Yes MIGRATION.58417 61208 Information not available 12/11/2022 [facility] MIGRATION.77732 47927 Information not available 12/11/2022 What Was The Date Of Your Most Recent Tobacco Screening? 01/19/2025 Information not available 01/19/2025 How Many Children Do You Have? 1 Information not available 06/16/2024 Do You Have Any Pets? Yes MIGRATION.11931 94698 Information not available 12/11/2022 What Is Your Relationship Status? Information not available 06/16/2024 Do You Use Your Seat Belt Or Car Seat Routinely? Yes MIGRATION.01452 67899 Information not available 12/11/2022 Do You Have Smoke And Carbon Monoxide Detectors In Your Home? Yes MIGRATION.76616 64696 Information not available 12/11/2022 At What Age Did You Start Smoking Tobacco? 19 Information not available 01/19/2025 Are You Passively Exposed To Smoke? No MIGRATION.59167 45894 Information not available 12/11/2022 Are There Any Smokers In Your House? No MIGRATION.16875 09888 Information not available 12/11/2022 How Much Tobacco Do You Smoke? No 1/2 Ppd Information not available 01/19/2025 Do You Use Sunscreen Routinely? Yes MIGRATION.91607 18437 Information not available 12/11/2022 Have You Recently Traveled Abroad? No MIGRATION.53067 29490 Information not available 12/11/2022 Do You Have Any Dietary Restrictions? No MIGRATION.65913 86689 Information not available 12/11/2022 Sex: Female Functional Status Question Answer Note LastModified by Organizat ion Details LastModified Time Do you use any illicit or recreational drugs? No Information not available 01/20/2024 Do you or have you ever used any other forms of tobacco or nicotine? No Information not available 01/20/2024 What is your level of alcohol consumption? None MIGRATION.712215 7997 Information not available 12/11/2022 Do you or have you ever used smokeless tobacco? Never used smokeless tobacco MIGRATION.344907 6647 Information not available 12/11/2022 Are you currently employed? 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 Never used electronic cigarettes MIGRATION.384943 1819 Information not available 12/11/2022 What is your exercise level? Occasional MIGRATION.370790 3619 Information not available 12/11/2022 Mental Status Question Answer Note LastModified by Organizat ion Details LastModified Time Do you feel stressed (tense, restless, nervous, or anxious, or unable to sleep at night)? [id number] MIGRATION.[id number] 6 Information not available 12/11/2022 Family History Relationship Description Onset Age of this Age Resolved Age Notes LastModified by Organization Details LastModified Time Paternal Grandmother Malignant tumor of breast MIGRATION.482 [id number] Not available 12/11/2022 00:55:52 Mother Hypothyroidi sm MIGRATION.578 0004417 Not available 12/11/2022 00:55:52 Mother Hypertensive disorder MIGRATION.902 [id number] Not available 12/11/2022 00:55:52 Brother Malignant neoplasm of urinary bladder MIGRATION.221 0977231 Not available 12/11/2022 00:55:52 Brother Malignant neoplasm of urinary bladder MIGRATION.962 [id number] Not available 12/11/2022 10:41:03 Father Hypertensive disorder MIGRATION.409 [id number] Not available 12/11/2022 00:55:52 Medical History Condition Response NERVE DISEASE N BLINDNESS N RHEUMATIC FEVER N KIDNEY STONES Y BLADDER PROBLEMS N OTHER # 1 Y POLIO N LUNG DISEASE/DISORDER N RADIATION / CHEMOTHERAPY N COPD N Other # 2 N BLOOD DISEASES N SURGERY N EAR OR HEARING PROBLEMS N MUMPS N DEPRESSION (INCLUDING POST ) Y BOWEL PROBLEMS N STROKE/TIA N ULCERS N BENIGN PROSTATIC HYPERPLASIA N MEASLES N MYOCARDIAL INFARCTION N OBESITY N GERD/NAUSEA N ANEURYSM N URINARY/BLADDER/KIDNEY PROBLEMS N INPATIENT PSYCH CARE N CORONARY ARTERY DISEASE (CAD) N ADDICTION CONCERNS N Impotence N ENDOMETRIOSIS N USE OF BLOOD THINNERS N SKIN [...] APNEA Y CHICKENPOX N INFECTIOUS DISEASE N PROSTATE N HEART ARRHYTHMIA N INSOMNIA N HIGH CHOLESTEROL / HYPERLIPIDEMIA N EYE PROBLEMS N HYPERTHYROIDISM N NEUROLOGICAL PROBLEMS N EDEMA N CHRONIC [...] N ALZHEIMER'S DISEASE N Brain Problems N DEMENTIA N HERPES N SEIZURES/EPILEPSY N HEADACHES/MIGRAINES Y VASCULAR DISEASE N PACEMAKER N Blood Disorder N DIZZINESS Y HEART DISEASE/HEART PROBLEMS Y KIDNEY DISEASE N MULTIPLE SCLEROSIS N CANCER: SPECIFY N CARDIAC ARRHYTHMIA N ANESTHESIA COMPLICATIONS N ATRIAL FIBRILLATION N [...] PF 5 completed Lupe Chase APRN [address], [address], [facility] [employer] 05/07/2024 17:26:03 Influenza, split virus, quadrivalent, PF 9 completed Lupe Chase APRN [address] [address], [place], [address], [facility] [employer] [facility] 05/07/2024 17:26:18 Influenza, split virus, quadrivalent, preservative 9 kyaw Chase APRN [address] [facility] [address], [place], [address], [employer] 05/07/2024 17:26:18 Influenza, split virus, quadrivalent, PF 2 completed Not Available [facility] 07/08/2023 07:36:53 Influenza, split virus, trivalent, PF 4 completed Lupe Chase APRN [address] [facility], [place], [address], [place] [employer] 08/24/2024 08:02:41 Past Encounters Encounter ID Performer Location Encounter Start Date Encounter Closed Date Diagnosis/Indication Diagnosis SNOMED-CT Code Diagnosis ICD10 Code Diagnosis Note [id number] RADHA Milan S_GMG Internal Med [facility] [address] [address] 12/11/2020 00:00:00 12/11/2020 14:02:50 [id number] RADHA Milan S_GMG Internal Med [facility] [address] [address] 12/22/2020 00:00:00 12/22/2020 14:36:19 [id number] Aravind carrillo MD S_GMG Internal Med [facility] [address] [address] 03/13/2021 00:00:00 03/13/2021 15:46:11 [id number] [facility]_Histor ic[facility]way [facility] Podiatry [place] [address] [facility] [address] [place] [address] 2021 00:00:00 03/15/2021 09:29:23 [id number] MD CHUCKY CarterS_GMG [facility] [address] [place] [address] 05/01/2021 00:00:00 05/01/2021 16:38:55 [id number] MD CHUCKY CarterS_GMBimal [facility] [address] [place] [address] 05/15/2021 00:00:00 05/15/2021 16:27:01 [id number] MD TIMMY Carter_GMBimal [facility] [address] [place] [address] 06/12/2021 00:00:00 06/12/2021 16:20:40 [id number] MD TIMMY Carter_GMBimal [facility] [place] [address] [address] 12/04/2021 00:00:00 12/04/2021 16:41:56 [id number] MD CHUCKY RamirezS_GMG Internal Med [facility] 15 [address] [facility], [address] [address] 12/10/2021 00:00:00 12/10/2021 12:22:36 [id number] MD CHUCKY RamirezS_GMG Internal Med [facility] 15 2043 [facility], [address] [address] 02/04/2022 00:00:00 02/04/2022 16:59:41 [id number] MD CHUCKY RamirezS_GMG Internal Med [place] [address] [facility] , [place] [address] 05/29/2022 00:00:00 05/29/2022 14:29:00 [id number] MD CHUCKY RamirezS_GMG Internal Med [facility] 15 2043 [facility], [address] [address] 08/23/2022 00:00:00 08/23/2022 16:15:38 [id number] MD CHUCKY RamirezS_GMG Internal Med [facility] 15 20[address] [facility], [address] [address] 10/18/2022 00:00:00 10/18/2022 16:08:06 [id number] MD TIMMY Ann_GMG General Surgery 2043 [facility], [address] [address] 10/24/2022 00:00:00 10/24/2022 13:02:36 [id number] Melida Caal, [facility]_G Pulmonolo gy Fredi Morton [address] [place] [address] 11/18/2022 00:00:00 11/18/2022 16:38:14 [id number] [facility] [address] [place] [address] [address] 03/26/2021 00:00:00 03/26/2021 13:21:21 [id number] [facility] [address] [place] [address] [address] 07/31/2021 00:00:00 07/31/2021 10:17:57 [id number] [facility] [address] [place] [address] [address] 11/07/2021 00:00:00 11/07/2021 10:52:56 [id number] [facility] [address] [place] [address] [address] 03/20/2022 00:00:00 03/20/2022 14:35:14 [id number] [facility] [address] [facility] [address] 07/03/2022 00:00:00 07/03/2022 15:33:58 [id number] [facility] [address] [place] [address] [address] 10/30/2022 00:00:00 10/30/2022 16:39:13 [id number] Aravind carrillo MD [place]_[facility] [address] [place] [address] 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/p hyst Asthma 160224578 J45.90 9 recommend she take her Advair as prescribed on albuterol prnget re-establi shed with pulm Sleep apnea 48512333 G47 .30 is s/p sleep study no JAMILA, but could be checked for narcolepsy - she declines referral for MSLT or for sleep specialist at this time Chronic ab dominal pain 625203027 R10.9 Follows GI- Dr. 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 duloxetine , wellbutrin call office if any change in mood or behavior Cardiac dipak eldon in situ 192245494 Z95.[address] Johnson Cervical radiculopathy 73166609 M54.12 following neurosurge ry- Dr. 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 Menon Body mass index 25-29 - overweight 265164234 Z68.29 recommend healthy, well balanced mealsfocus on lean meats, fresh vegetables , fresh fruits, whole grainsredu ce fast/proce ssed foods or eating out to no more than 1-2 times per weekaim to get 30 min of exercise most days of the week- walking is a great choice Chronic low back pain 27 2399593 M54.50 wants new pain management referral in [facility] d PT- she declinesER precaution s Screening mammography 24 340538 Z12.31 [id number] Jo Burks NP [facility] [address] [facility], [address] [place] [address] 04/08/2023 15:58:21 04/08/2023 16:43:25 [id number] Dion Bonilla MD S_[facility] [address] [facility] [address] [place] [address] 05/26/2023 16:28:58 05/26/2023 17:01:12 Kidney stone 52590896 N20.0 Hx of stones, check kub. Urinary incontinence 165 978895 R32 MOstly stress, went over conservati ve measures including pelvic floor exercises and timed voiding will call if wants PT. 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 Juan Francisco Martinez Mixed anxi ety and depressive disorder 068274702 F41.8 now following psychiatry - Jo [place] dulox[place] , wellbutrin call office if any change in mood or behavior Cardiac pa eldon in situ 019638084 Z95.[address] Johnson Cervical radiculopathy 85147623 M54.12 following neurosurge ry- Dr. Forgetis s/p cervical fusion gai n recommend she make a followup appt with her neurosurge on- this was recommende d previously and she did not goER precaution s Prediabetes 957263430 R7 3.03 insurance will not cover injectable sshe is working on diet/exerc ise Metabolic dysfunction-associate d steatohepatitis 233749363 K75.81 Follows [facility] hepatology - Dr. Menon Body mass index 25-29 - overweight 893929943 Z68.29 recommend healthy, well balanced mealsfocus on lean meats, fresh vegetables , fresh fruits, whole grainsredu ce fast/proce ssed foods or eating out to no more than 1-2 times per weekaim to get 30 min of exercise most days of the week- walking is a great choice Chronic low back pain 27 5243226 M54.50 wants new pain management referral in [facility] le- referred to [facility] but she decided not to faiza cyr PT- she declinesER precaution s Screening mammography 24 602918 Z12.31 [id number] Jo Burks NP [facility] [address] [address] 09/18/2023 09:43:32 09/18/2023 10:33:40 [id number] Aravind carrillo MD [facility] Internal Med [facility] [address] [address] 01/20/2024 16:42:46 01/20/2024 17:19:13 Hyperlipidemia 20070815 E78.5 Mixed anxi ety and depressive disorder 030845590 F41.8 Fatigue 07800093 R53.83 Asthma 143070795 J45.90 9 Essential hypertension 95618636 I10 Mass of upper limb 19090 5008 R22.32 Infection of big toe 309 525328 L08.9 [id number] Jo Burks NP [facility] [address] [address] 01/28/2024 11:36:00 01/28/2024 12:24:25 [id number] Rich Lockwood DPM [facility] [address] [place] [address] 25 [place] [address] 02/12/2024 15:23:32 02/13/2024 09:05:12 Ingrowing nail of toe of right foot 9509989122 0773677 L60.0 great toe, medial borderpart ial matrixecto [...] the nearest ER.Follow- up in 10 days [id number] Rich Lockwood DPM S[facility] Fredi Morton [address] [facility] [address] [place] [address] 02/23/2024 15:50:23 02/23/2024 18:00:13 Ingrowing nail of toe of right foot 2569788609 8792774 L60.0 great toe, medial borderpart ial matrixecto [...] the nearest ER.Follow- up in 7 days [id number] Aravind carrillo MD [facility] [address] [facility] [address] [place] [address] 05/10/2024 11:36:27 05/10/2024 12:11:55 Screening mammography 28371484 Z12.31 Asthma 691520122 J45.90 9 [id number] Aravind carrillo MD S[facility] [address] [facility] [place] [address] 06/16/2024 08:20:27 06/16/2024 08:53:54 Asthma 189229309 J45.660 [id number] Mariola Lal NP S_GMG Pulmonolo gy [place] [address] [place] [address] 15 [place] [address] 07/15/2024 09:34:14 07/15/2024 10:20:49 Asthma 333542829 J45.31 ACT on no maintenanc e inhaler: [...] in breathing and increase use of inhaler [id number] Aravind carrillo MD S_G Internal Med [facility] [address] [address] 08/23/2024 15:48:14 08/23/2024 16:47:41 Butterfly rash 91976495 R21 Administra tion of influenza vaccine 10007844 Z23 Urinary incontinence 165 197383 R32 [id number] Aravind carrillo MD S_[facility] Primary Care [facility] [address] [facility] [address] [place] [address] 01/19/2025 14:52:22 01/19/2025 15:48:57 Screening - NAD 050331902 Z13.9 C-scope: 09/2022- Valentin Martinez- polyp- repeat 5 years- 09/2027 Mammogram: Get this [employer]- 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 Get yearly flu shot, get tdap if not doneCan do shingrix vaccine and also get Prevnar #20 RTC 3 months, do labs, ER if worse, she did verbalize her understand ing of the above 45 minutes spent with her, discussed her various complaints and morbiditie s, labs provided and referrals provided Hyperlipidemia 34624283 E78.5 Not on any medsGet labs Asthma 236928521 J45.90 9 On HHNsOn AlbuterolO n floventNee ds to see pulmonary Sleep apnea 01558272 G47 .30 See pulmonaryR eferred Mixed anxi ety and depressive disorder 027210261 F41.8 On bupropion SR 200mg bidOn duloxetine 60mg dailyNot suicidal or homicidalS ees psychiatry , referred 01/19/2025 Cervical radiculopathy 38890553 M54.[address] Patel/p surgeryNeshane ds to keep apt with NSGet on short course of meloxicam Chronic low back pain 27 4808280 M54.50 On ibuprofen, advised to take this very rarelyKeep apt with NSReferred 01/19/2025 Coronary arteriosclerosis 10991591 I25.10 S/p PMOn HCTZ 25mg dailyOn losartan 25mg dailyOn metoprolol 50mg bid Sees Dr Johnson, referred 01/19/2025 as she has noted dizziness Metabolic dysfunction-associate d steatohepatitis 106203945 K75.[address] Menon in [place], referred 01/19/2025 Vitamin D deficiency 347 93631 E55.9 Screening mammography 24 866230 Z12.31 Gynecologi c examination 99610906 Z01.419 Sinusitis 60071224 J32.9 Mainly L sided sinuses, c/o throbbing pain, will [facility] Post[facility] state 764 [address]198 Z78.0 [id number] Aravind carrillo MD [facility]_G Primary Care [facility] [address] [facility] [place] [address] 01/21/2025 11:21:31 01/21/2025 11:53:13 Health Concerns Section Related Observation LastModified by Organization Detai ls LastModified Time None Recorded Concern Status LastModified by Organization Details LastModified Time None Recorded Advance Directives Directive N: Payers Encounter Date Sequence Insurance Name Policy Number Policy Lebron Covered Member ID Lebron Member ID Guarantor Name 06/16/2024 1 [employer] (PPO) [id number] Remedios Lipscomb [id number] Remedios Millswell 07/15/2024 1 [place] [id number] Remedios Reeder Mowell [id number] Remedios Reeder Mowell 08/23/2024 1 [place] [id number] Remedios Reeder Mowell [id number] Remedios Reeder Mowell 01/19/2025 1 [place] [id number] Remedios Reeder Mowell [id number] Remedios Reeder Mowell 01/21/2025 1 [place] [id number] Remedios Reeder Mowell [id number] Remedios Reeder Mowell Notes Date Note Type Note Provider Name and Address Organization Details Recorded Time 06/16/2024 text/html Remedios presents tod ay for 3 month follow up. She was wheezing, coughing with no results. She states that she was in the ED at [facility]. She was not told the results of her testing there. And was not sent home with any prescriptions. 05/10/2024my presents today for dyspnea, throat pain. She states that she is constantly feeling short of breath. She has been to see cardiology and ED for these episodes. 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 She was not told the results of her testing there. And was not sent home with any prescriptions. 05/10/2024my presents today for dyspnea, throat pain. She states that she is constantly feeling short of breath. She has been to see cardiology and ED for these episodes. Lupe Chase APRN [address], [place], [address], [employer] 08/24/2024 08:38:02 01/19/2025 text/html OV 01/19/2025: H ere to establish care Present Hx:HLDAsthmaAnxiety/Dep ressionLBPCADNon alcoholic hepatic steatosisSinusitis Here to discuss multiple issues, wants to discuss sinus symptoms, has noted facial pain and this has caused her dizzy symptoms Aravind Hillman MD [address], [place], [address], [employer] 01/19/2025 18:36:01 OBGyn Episode No OBEpisode recorded.
--- OUTSIDE RECORDS SUMMARY | 2025-03-22 06:59 | XMS_ITS | Clinical Summary ---
Author Organization [facility] Address [address] [place] [address] Phone Care Team Providers Care Product Steward Name Role Phone Minerva Richardson NP Primary [...] Encounters Date Type Department Care Team Description 03/15/2025 External Device Data STL ABSTRACTION Provider, Abstract 03/15/2025 Telephone [facility] - [facility] [place] [address] [facility] [address] [place] [address] Provider, Abstract new pt ppwk 03/03/2025 External Device Data STL ABSTRACTION Provider, Abstract 03/02/2025 External Device Data STL ABSTRACTION Provider, Abstract 03/01/2025 External Device Data STL ABSTRACTION Provider, Abstract 01/26/2025 Telephone [facility] - [facility] [place] [address] [facility] [address] [place] [address] Edis Veronica MD Wants Appointment 01/25/2025 External Device Data STL ABSTRACTION Provider, Abstract 01/25/2025 Abstract [facility] - [facility] [place] [address] [facility] [address] [place] [address] Provider, Abstract 12/29/2024 External Device Data STL [...] Comments Blood Pressure 107/78 11/21/2021 10:43 AM LOAD HAUL DUMP OPERATOR Pulse 86 08/29/2021 2:41 PM LOAD HAUL DUMP OPERATOR Temperature 36.8 C (98.2 F) 11/21/2021 10:43 AM LOAD HAUL DUMP OPERATOR Respiratory Rate 16 07/09/2021 4:08 PM CDT Oxygen Saturation 95% 07/09/2021 4:08 PM CDT Inhaled Oxygen Concentration - - Weight 98.9 kg (218 lb) 11/21/2021 10:43 AM LOAD HAUL DUMP OPERATOR Height 182.9 cm (6') 11/21/2021 10:43 AM LOAD HAUL DUMP OPERATOR Body Mass Index 29.57 11/21/2021 10:43 AM LOAD HAUL DUMP OPERATOR Plan of Treatment Upcoming Encounters Date Type Department Care Team (Late st Contact Info) Description 05/04/2025 3:00 PM CDT Office Visit [facility] - [facility] [address] [facility] [address] [place] [address] Edis Veronica MD [address] [facility] [address] [address] -x0 (Work) Health Maintenance Due Date Last [...] 08/17/2019, 08/16/2019 Medical Devices Implanted Type Area Director Of Materials Management Device Identifier Shelf Expiration Date Model / Serial / Lot Triad Cc Allograft Implanted:Qt y: 1 on 07/09/2021 by Edis Veronica MD at [facility] Bone N/A: Spine Cervical Anterior [employer] 11/08/2025 [id number] / [id number] / Hemostatic Surgiflo 8ml W/ Thrombin 2994 - Old - [id number] Implanted:Qt y: 1 on 07/09/2021 by Edis Veronica MD at [facility] Hemostatic N/A: Spine Cervical Anterior J[employer]J- [employer] [id number] 11/12/2022 [id number] / / [id number] Acp 1.6v, 42mm, 2 Level Plate Implanted:Qt y: 1 on 07/09/2021 by Edis Veroinca MD at [facility] Plate N/A: Spine Cervical Anterior [employer] [id number] / LOAD 2 / STERILIZED 06-29-21 Description:All Nuvasive cer vical hardware was processed on requisition, [id number]. Acp Screw, 3.5 X 15 Mm Self Drilling Jailyn Implanted:Qt y: 6 on 07/09/2021 by Edis Veronica MD at [facility] Screw N/A: Spine Cervical Anterior [employer] [id number] / LOAD 2 / STERILIZED 06-29-21 Allograft Triad Cc Cerv [id number] - [id number] Implanted:Qt y: 1 on 07/09/2021 by Edis eVronica MD at [facility] Tissue N/A: Spine Cervical Anterior [employer] 01/28/2026 [id number] / [id number] / Pacemaker Insurance BS BLUE ACCESS/TRUE BLUE PPO RX [employer] Commercial Care Teams Product Steward Relationship Specialty Start Date End Date Minerva Richardson NP PCP - General NURSE PRACTITIONER 12/27/20
[2025-03-22 07:13] VITALS: BP 149/93; PULSE 67; RESP 18; TEMP 36.3; O2SAT 98
[2025-03-22 07:46] LABS: INR 1.1; Prothrombin Time 13.7 Seconds (11.1-14.7)
[2025-03-22 09:34] VITALS: BP 153/94; PULSE 60; RESP 16; O2SAT 100
[2025-03-22 10:00] VITALS: BP 135/98; PULSE 76; RESP 16; O2SAT 100
[2025-03-22 10:30] VITALS: BP 151/94; PULSE 60; RESP 16; O2SAT 100
[2025-03-22 10:59] VITALS: BP 123/96; PULSE 60; RESP 16
[2025-03-22 11:30] VITALS: BP 142/87; PULSE 61; RESP 16
--- NOTE | 2025-03-22 11:32 | SUR.PHASEII ---
1125 - ambulated to restroom without problems. gait steady. no c/o pain or sizziness.
== END 2025-03-22 11:45 | disposition home or self-care (01) ==
PROVIDERS: PCP Internal Medicine; Referring Provider Nurse Practitioner Adult Health; Visit Provider Radiology Diagnostic Radiology
DX: Z01.818 Encounter for other preprocedural examination (principal); M54.2 Cervicalgia
CPT/HCPCS: 36415; 62302; 72126; 85610; Q9967

== ENCOUNTER 2025-04-20 01:17 | Day surgery (SDC) | payer OTHER, SELFPAY ==
--- NOTE | 2025-04-12 15:35 | SUR.PREOP ---
Report to the Outpatient Waiting Room, entrance under the green pavilion located off [facility], at time 1130 on date 04/20/25. Planned Procedure Time: 1330.? Time changes happen often and if your time is changed the preop area will call you the afternoon before. - You and your visitor will be asked to self-screen and do not enter if you have any COVID symptoms. Please call surgeon if you need to reschedule. - A mask is optional within the hospital at this time. Patients may have clear liquids (water, carbonated beverages, clear teas, apple juice) until 3 hours prior to surgery with a maximum of 20 ounces. - No food from midnight until time of surgery and no smoking, or chewing tobacco (or any form of nicotine). No chewing gum, candy or mints. - Infants may have breast milk until 4 hours before surgery, formula 6 hours prior to surgery. - Children will be allowed to drink immediately following surgery.? If applicable, please bring a bottle or sippy cup to assist with drinking. Juice, water, soda, and popsicles are readily available.? For infants on formula, please bring formula the day of surgery.? Pacifiers are allowed. Take only the following medications with a SIP of water on the morning of surgery: metoprolol, bupropion, duloxetine, DO NOT STOP ANY OF YOUR OTHER PRESCRIPTION MEDICATIONS PRIOR TO SURGERY EXCEPT THE FOLLOWING Hold all vitamins and supplements for 3 days per anesthesiologist. Medications to discontinue per physician - hydrochlorothiazide Date to take last dose Please no make-up, nail maori, hairspray, perfume, deodorant, or body powder the day of surgery.? No jewelry (including any body piercings) or valuables the day of surgery, leave them at home.? Please take a shower or bath the night before, or the morning of, surgery with an antibacterial soap.? Wear comfortable, loose fitting clothing.? Children are encouraged to wear pajamas. - Jewelry must be removed prior to entering the operating room.? Rings and piercings that are not removed may be cut off. - The hospital will not accept responsibility for valuables.? - Please leave all valuables, including medications, at home the day of surgery. If you are going home after surgery, a licensed electric train driver must drive you home.? - NO public transportation without another adult if you receive anesthesia. - We recommend that an adult stay with you for 24 hours following discharge. - We also recommend that you do not drive, make important decision, drink alcoholic beverages, or take any drugs that were not prescribed by your health care provider for at least 24 hours after your discharge time. For Pediatric surgeries, we recommend two adults accompany the child home. Follow any additional instructions given to you from your surgeon. Telephone instructions given to patient and asked if any additional questions and then verbalized understanding. Patient advised to call surgeon office or pre surgery nurse liaison [phone] if any additional questions.
[2025-04-12 15:42] VITALS: BMI 26.9
--- OUTSIDE RECORDS SUMMARY | 2025-04-20 01:22 | XMS_ITS | Referral Summary ---
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 Gender Identity Not on file Sexual Orientation [...] on file Medical Devices Implanted Type Area Geological Survey Field Assistant Device Identifier Shelf Expiration Date Model / Serial / Lot [employer] Stent Venous Wall [id number] - [id number] Implanted:Qty: 1 on 08/21/2023 by Finn Johnson MD at [facility] [employer] Crist[employer]bal 07/29/2024 [id number] / / [id number] [employer] Stent Venous Wall [id number] - [id number] Implanted:Qty: 1 on 08/21/2023 by Finn Johnson MD at [facility] [employer] Crist[employer] 10/22/2024 [id number] / / [id number] Insurance [facility] [address] [place] Advance Directives For more information, please contact: [phone] * Full Code (Latest Code Status on File) Date Activated Date Inactivated Comments 08/21/2023 2:40 PM 08/21/2023 8:52 PM * Full Code Date Activated Date Inactivated Comments 08/17/2019 9:45 AM 08/17/2019 2:34 PM Care Teams Melter Supervisor Oxygen Furnace Relationship Specialty [place] [address] [address] PCP - General Family Medicine 03/23/24 [place] [address] [address] Consulting Physician Cardiology 08/17/19
--- OUTSIDE RECORDS SUMMARY | 2025-04-20 01:22 | XMS_ITS | Clinical Summary ---
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 Gender Identity Not on file Sexual Orientation [...] history exists Medical Devices Implanted Type Area Hostel Manager Device Identifier Shelf Expiration Date Model / Serial / Lot [employer] Stent Venous Wall [id number] - [id number] Implanted:Qty: 1 on 08/21/2023 by Finn Johnson MD at [facility] [employer] [facility] 07/29/2024 [id number] / / [id number] [employer] Cristóbal Stent Venous Wall [id number] - [id number] Implanted:Qty: 1 on 08/21/2023 by Finn Johnson MD at [facility] Scientific [facility] 10/22/2024 [id number] / / [id number] [place] [address] [place] [employer] [place] [facility] Advance Directives For more information, please contact: [phone] * Full Code (Latest Code Status on File) Date Activated Date Inactivated Comments 08/21/2023 2:40 PM 08/21/2023 8:52 PM * Full Code Date Activated Date Inactivated Comments 08/17/2019 9:45 AM 08/17/2019 2:34 PM Care Teams Funeral Pre Arrangement Counselor Relationship Specialty [place] [address] [address] PCP - General Family Medicine 03/23/24 [place] [address] [address] Consulting Physician Cardiology 08/17/19
--- OUTSIDE RECORDS SUMMARY | 2025-04-20 01:23 | XMS_ITS | Clinical Summary ---
Author Organization [facility] Address [address] [place] [address] Care Team Providers Care Loaders Name Role Phone Laverne Oviedo MD Primary [...] 1:37 PM CDT Height 180.3 cm (5' 11) 07/17/2021 1:37 PM CDT Body Mass Index [...] Screening with HPV 2004 Mammogram Screening 2014 Pneumococcal Vaccine: 50+ Ye ars (1 of 1 - PCV) 2024 Zoster Vaccines (1 of 2) 2024 COVID-19 Vaccine ( - 2023-2 5 season) 2024 Meningococcal B Vaccine Aged Out No l onger eligible based on patient's age to complete this topic Meningococcal Vaccine Aged Out No shanita tristan eligible based on patient's age to complete this topic RSV Immunizations Under 20 Months Aged Out No longer eligible based on patient's age to complete this topic Insurance [facility] Care Teams Loaders Relationship Specialty Start Date End Date Laverne Oviedo MD [address] [place] [address] PCP - General OBGYN 02/08/20
--- OUTSIDE RECORDS SUMMARY | 2025-04-20 01:23 | XMS_ITS | Data Portability ---
Author Organization [place] - [facility] [employer], Main Office Address [address] [place] [address] Assessment Encounter Date Assessment Date Assessment LastModified [...] Appointments Follow Up 15 2024 02:45P M Fernando rankin MD Not available Not available Not available Lab lipid panel, serum 2024 025 [facility] (Lab), [address] [place], [address], 01/21/2025 13:12:12 CBC w/ auto diff 2024 025 [facility] (Lab), [address] [place], [address], 01/21/2025 13:07:04 TSH, serum or plasma 2024 025 [facility] (Lab), [address] [place], [address], 01/21/2025 13:40:35 CMP, serum or plasma 2024 025 [facility] (Lab), [address] [place], [address], 01/21/2025 13:12:22 vitamin D, 25-hydrox y, total, serum 2024 025 [email or web address] [facility] (Lab), [address] [place], [address], 02/03/2025 09:38:07 urinalysi s complete, reflex culture 2023 024 [email or web address] 2 [facility] (Lab), [address] [place], [address], 03/08/2025 12:47:43 BNP (B-type natriuret ic peptide), serum or plasma 2023 024 [facility] (Lab), [address] [place], [address], 07/15/2024 14:55:13 ige, total, serum 2023 024 [email or web address] 2 [facility] (Lab), [address] [place], [address], 09/08/2024 15:17:46 tb (M tuberculo sis), ifn-gamma helen, blood 2023 024 [email or web address] 2 [facility] (Lab), [address] [place], [address], 09/08/2024 15:17:46 eosinophi l count, manual, blood (OBS) 2023 024 [email or web address] 2 [facility] (Lab), [address] [place], [address], 09/08/2024 15:17:[address] 1+2+3+4, serum 2023 024 [email or web address] 2 [facility] (Lab), [address] [place], [address], 09/08/2024 15:17:46 respirato ry allergen panel, [facility] A, serum 2023 024 [facility] (Lab), [address] [place], [address], 07/24/2024 11:56:07 respirato ry allergen panel - [facility] b 2023 024 [email or web address] 2 [facility] (Lab), [address] [place], [address], 09/08/2024 15:17:46 alpha-1-a ntitrypsi n (aat) phenotype , serum [address] [place] [address] (Lab), [address] [place], [address], 09/08/2024 15:17:46 Referral neurologi nayla surgeon referral - Please call patient to schedule an appointme nt. Thank you. 2024 025 IRAIDA Veronica MD, [address] [facility], [address], [place], [address], 03/24/2025 14:35:20 gynecolog ist referral - Please call patient to schedule an appointme nt. Thank you. 2024 025 IRAIDA Thrasher , [address] [facility] [address], [place], [address], 01/20/2025 11:21:02 hepatolog ist referral - Please call patient to schedule an appointme nt. Thank you. 2024 025 ESTELITA Menon MD ([facility]), [address] [place], [address], 01/24/2025 12:10:36 pulmonolo gist referral - Please call patient to schedule an appointme nt. Thank you. 2024 025 ESTELITA CORNEJO-C, [address] [facility], [facility] [address], [place], [address], 01/24/2025 13:55:16 cardiolog ist referral - Please call patient to schedule an appointme nt. Thank you. 2024 025 [place], [address] , [facility] [address], [address], 01/24/2025 12:25:12 psychiatr ist referral - Please call patient to schedule an appointme nt. Thank you. 2024 025 IRAIDA Burks [employer], [address] [facility], [facility] [address], [place], [address], 01/25/2025 17:21:56 pulmonolo gist referral - Please call patient to schedule an appointme nt. Thank you 2024 025 [email or web address] Mariola Lal [facility], [address] [facility], [facility] [address], [place], [address], 01/26/2025 17:30:35 rheumatol ogist referral - Please call patient to schedule. 2023 024 [email or web address] [facility] (Rheumatology ), [address] [facility], [place], [address], 12/16/2024 10:24:53 Procedures None recorded. Surgeries None recorded. Imaging MAMMO, screening , digital, bilateral 2024 025 [email or web address] [facility] (One Call Scheduling), [address] [place], [address], 01/19/2025 16:06:22 XR, cervical spine, 2 or 3 view 2024 025 [facility] (One Call Scheduling), [address] [place], [address], 01/25/2025 12:21:07 bone density - Please call patient to schedule. 2024 025 [facility] (One Call Scheduling), [address] [place], [address], 02/01/2025 15:11:20 CT, sinuses, w/o contrast [address] (One Call Scheduling), [address] [place], [address], 01/24/2025 13:48:13 Medication Orders meloxicam 7.5 mg tablet 2024 025 [facility] #72029, [address], [place], [place], [id number], 01/19/2025 15:51:53 Zyrtec 10 mg tablet 2024 025 [facility] #17942, [address], [place], [place], [id number], 01/19/2025 15:51:53 triamcino lone acetonide 0.1 % topical cream [address] [facility]48695, [address], [place], [place], [id number], 01/19/2025 15:14:11 oxybutyni n chloride 5 mg tablet [address] [facility] #40002, [address], [place], [place], [id number], 01/19/2025 15:13:47 Flovent HFA 110 mcg/actua tion aerosol inhaler 2023 024 [facility] #88934, [address], [place], [place], [id number], 07/15/2024 10:15:25 prednison e 20 mg tablet 2023 024 [facility] #70219, [address], [place], [place], [id number], 01/19/2025 15:13:58 Medrol (Kobe) 4 mg tablets in a dose pack 2023 024 [facility] #40983, [address], [place], [place], [id number], 08/23/2024 16:21:42 azithromy nidhi 250 mg tablet 2023 024 [facility] #89835, [address], [place], [place], [id number], 08/23/2024 16:21:22 Patient TargetsNo targets recorded. Patient Instructions Encounter Date Encounter Id Patient Instructions Last Modified By Organization Details Last Modified Time 06/16/2024 [id number] Follow up in July Prescriptions sent to pharmacy Recommend: Pneumococcal vaccine Tetanus vaccine Shingles vaccine Not available 06/16/2024 08:42:44 08/23/2024 [id number] Follow up in 4 months Prescription sent to pharmacy Obtain labs Tests: Referral: Rheumatology referral-rash and possible rheumatoid arthritis Recommend: Tetanus vaccine Shingles vaccine Not available 08/23/2024 16:33:31 Reason for Referral Core Shaper Top Referral for Butterfly rash Please call patient to schedule. Referring Physician: Lupe Grey, Internal Medicine, Encounter Date: 08/23/2024 House Wrecker Referral for A sthma Please call patient to schedule an appointment. Thank you Referring Physician: Fernando Hillman, Internal Medicine, Encounter Date: 01/19/2025 House Wrecker Referral for S leep apnea Please call patient to schedule an appointment. Thank you. Referring Physician: Fernando Hillman Internal Medicine, Encounter Date: 01/19/2025 Psychiatrist Referral for Mi xed anxiety and depressive disorder Please call patient to schedule an appointment. Thank you. Referring Physician: Fernando Hillman Internal Medicine, Encounter Date: 01/19/2025 Neurological Surgeon Referra l for Cervical radiculopathy Please call patient to schedule an appointment. Thank you. Referring Physician: Fernando Hillman, Internal Medicine, Encounter Date: 01/19/2025 Quality Assurance Lead Referral for Me tabolic dysfunction-associated steatohepatitis Please call patient to schedule an appointment. Thank you. Referring Physician: Fernando Hillman, Internal Medicine, Encounter Date: 01/19/2025 Order Runner Referral for Co ronary arteriosclerosis Please call patient to schedule an appointment. Thank you. Referring Physician: Fernando Hillman Internal Medicine, Encounter Date: 01/19/2025 Experience Design Director Referral for Gy necologic examination Please call patient to schedule an appointment. Thank you. Referring Physician: Fernando Hillman Internal Medicine, Encounter Date: 01/19/2025 Results [...] shoul mario No observ ation record ed. [address] , [place], [address], 09/06/2024 08:04:20 12/25/1912/24/2024 XR, kidne y + urete r + bladd er No observ ation record ed. [address] , [place], [address], 12/24/2024 16:00:58 01/07/20 25 01/06/2025 XR, chest , 2 view No observ ation record ed. [address], [place], [address], 01/12/2025 09:03:24 01/07/20 25 01/06/2025 CT, angio gram, chest , w/ contr ast No observ ation record ed. [address], [place], [address], 01/12/2025 09:10:04 01/26/20 25 01/25/2025 XR, cervi nayla spine , 2 or 3 view [facility] [address] [facility] [place] [address] Patikevin t Name: REMEDIOS LIPSCOMB ion #: [id number] Sex: F : 1974 3 Dictat [...] a left chest pacema ker. Page 1 [facility] [address] [place] [phone] Patikevin t Name: REMEDIOS LIPSCOMB Access ion #: [id number] Sex: F : 1974 3 Dictat ed By: Hao lynn Attend ing Physic rachel: MURTDAVIDSON Carrillo, BAHRAI DARBY Orderi ng Physic rachel: BAHRAI NWLYNSEY, MURTUZ A Exam Date: 2024 10:44 AM Exam Name: XR C SPINE 3V Admitt ing Diagno sis(es ): Electr onical ly Signed by: Hao lynn at 2024 11:18: 34 AM Page 2 [email or web address] [facility] (Imaging) [address] [place], [address], 01/25/2025 15:13:28 01/26/20 25 01/25/2025 XR, cervi nayla spine , 2 or 3 view No observ ation record ed. [facility] (One Call Scheduling) [address] [place], [address], 01/25/2025 18:19:30 02/02/20 25 02/01/2025 scree perico breas t minh, bilat [facility] [address] [place] [address] Patikevin t Name: REMEDIOS LIPSCOMB Access ion #: [id number] Sex: F : 1974 9 Dictat ed By: Chitra Borrero Attend ing Physic rachel: ROSEY PASTOR MURTUZ A Orderi ng Physic rachel: BAHDELIA PASTOR, MURTUZ A Exam Date: 2024 09:44 AM Exam Name: MG SCRN BREAST MINH BILAT Admitt ing Diagno sis(es [...] annual mammog anurag. ASSESS MENT: Page 1 [facility] [address] [place] [id number] Patien t Name: REMEDIOS LIPSCOMB [facility] ion #: [id number] Sex: F : 1974 9 Dictat ed By: Chitra Borrero Attend ing Physic rachel: ROSEY HERRERA Orderi ng Physic rachel: [facility] Exam Date: 2024 09:44 AM Exam Name: MG SCRN BREAST MINH BILAT Admitt ing Diagno sis(es ): BIRADS : 1 - Negati ve Electr onical ly Signed by: Chitra Borrero at 2024 10:26: 32 AM Page 2 [email or web address] [facility] (Imaging) [address] [place], [place], [facility], 02/03/2025 09:57:33 02/02/20 25 02/01/2025 MAMMO , scree perico, digit al, bilat eral No observ ation record ed. [email or web address] [facility] [address] [place], [address], 02/02/2025 19:08:31 02/02/2002/01/2025 DEXA, axial skele ton [facility] [address] [facility] [place] [address] Patien t Name: MARTA REMEDIOS Access ion #: [id number] Sex: F : 1974 9 Locati [...] e of 1.7. Page 1 of 2 [facility] Patikevin t Name: REMEDIOS LIPSCOMB Access ion #: [id number] Sex: F : 1974 9 Exam [...] 2:06 PM (CT) Page 2 of 2 [email or web address] [facility] (Imaging) [address] [place], [address], 02/03/2025 09:57:33 02/02/20 25 02/01/2025 bone densi ty No observ ation record ed. [email or web address] [facility] [address] [place], [address], 02/02/2025 19:08:31 02/03/20 25 02/02/2025 CT, cervi nayla spine , w/o contr ast [facility] [address] [place] [address] Patien t Name: REMEDIOS LIPSCOMB ion #: [id number] Sex: F : 1974 8 Locati on: RAD Attend ing Physic rachel: [facility] Amy Orderchip ladd Physic rachel: [facility] A Exam Date: 9:21 AM Exam Name: CT [...] 562.4 mGy*cm . Page 1 of 3 [facility] Name[facility] REMEDIOS LIPSCOMB ion #: [id number] Sex: F : 1974 8 Exam [...] 4:06 PM (CT) Page 2 of 3 [facility] Averakevin Name: REMEDIOS LIPSOCMB [facility] ion #: [id number] Sex: F : 1974 8 Exam Date: 9:21 AM Exam Name: CT C SPINE WO Admitt ing Diagno sis(es ): DT: 4:06 PM (CT) Page 3 [email or web address] (Imaging) [address] [place], [address], 02/03/2025 09:57:34 02/03/20 25 02/02/2025 imagi ng/di agnos tic resul t No observ ation record ed. [facility] [address] [place], [address], 02/02/2025 17:11:23 03/01/20 25 03/01/2025 imagi ng/di agnos tic resul t No observ ation record ed. [facility] [address], [place], [address], 03/01/2025 15:14:03 03/22/20 25 03/22/2025 imagi ng/di agnos tic resul t No observ ation record ed. [address], [place], [address], 03/22/2025 12:07:50 03/22/20 25 03/22/2025 imagi ng/di agnos tic resul t No observ ation record ed. [place] [id number] [facility] [address], [place], [address], 03/22/2025 11:32:38 Result Notes Documentation Provider Name and Address Organization Details Recorded Time Xr, Cervical Spine, 2 Or 3 View : [place] [id number] Patient Name: REMEDIOS LIPSCOMB Sex: F : 1975 Dictated By: Hao Posey Attending Physician: FERNANDO HILLMAN Ordering Physician: FERNANDO HILLMAN Exam Date: 01/25/2025 10:44 AM Exam Name: XR C SPINE 3V Admitting Diagnosis(es): EXAM: XR C SPINE 3V HISTORY: cervical radiculopathy 49-year-old female with neck pain, no recent injury, history of cervical spine surgery, numbness and tingling of the bilateral arms. COMPARISON: None TECHNIQUE: AP, lateral, swimmer's, and odontoid views of the cervical spine were performed. FINDINGS: No cervical fracture, listhesis, scoliosis, or prevertebral soft tissue edema are identified. There are postoperative changes of ACDF C5-C7, without evidence of hardware failure or complication. There is advanced degenerative disc disease and facet arthropathy. The patient is edentulous. There is a left chest pacemaker, not fully imaged here. IMPRESSION: 1. No fracture of the cervical spine. 2. Advanced cervical degenerative disc disease and facet arthropathy. Given the patient's history of upper extremity radicular symptoms, recommend follow-up outpatient noncontrast CT scan of the cervical spine on a nonemergent outpatient basis for better characterization of the spinal canal dimensions and bilateral neural foramina. The patient is likely not compatible for MRI secondary to a left chest pacemaker. Page 1 [facility] [address] [place] [address] Patient Name: REMEDIOS LIPSCOMB Sex: F : 1975 Dictated By: Hao Posey Attending Physician: MARILEE KING Ordering Physician: FERNANDO HILLMAN Exam Date: 01/25/2025 10:44 AM Exam Name: XR C SPINE 3V Admitting Diagnosis(es): Page 2 Fernando Hillman MD [address], [address] [employer] [facility] 01/25/2025 15:13:28 Dexa, Axial Skeleton : [address] [address] Patient Name: REMEDIOS LIPSCOMB Sex: F : 1975 Location: [facility] Attending Physician: FERNANDO HILLMAN Ordering Physician: FERNANDO HILLMAN Exam Date: 02/01/2025 9:20 AM Exam Name: XR DEXA-HIPS PELVIS SPINE Admitting Diagnosis(es): RADIOLOGY REPORT - FINAL EXAM: XR DEXA-HIPS PELVIS SPINE HISTORY: postmenopausal state 49-year-old female with osteoporosis screening. COMPARISON: None available. TECHNIQUE: Dual energy x-ray of absorption examination of the bilateral hips and lumbar spine was performed in AP projection. FINDINGS: Lumbar Spine (L1-L4): The mean bone mineral density is 1.609 g/cm2 hydroxyapatite, correlating with a T-score of 3.3. Bilateral hips: The mean bone mineral density is 1.218 g/cm2 calcium hydroxyapatite, correlating with a T-score of 1.7. Page 1 of 2 [facility] Patient Name: REMEDIOS LIPSCOMB Sex: F : 1975 Exam Date: 02/01/2025 9:20 AM Exam Name: XR DEXA-HIPS PELVIS SPINE Admitting Diagnosis(es): Risk of major osteoporotic fracture 3.5%; risk of hip fracture 0.0%. IMPRESSION: 1. The patient's lumbar spine T-score is consistent with normal bone mineral density. 2. The patient's bilateral hip T-score is consistent with normal bone mineral density. According to the World Health Organization, T-score values greater than -1.0 are normal, values between -1.0 and -2.5 are categorized as osteopenia, T-score of -2.5 or more are categorized as osteoporosis. Created and electronically signed by: Hao Posey MD Signed Date: 02/01/2025 2:06 PM (CT) Dictated by: Hao Posey MD (CT) (CT) Page 2 of 2 [facility] [employer] [facility] 02/03/2025 09:57:33 Ct, Cervical Spine, W/o Contrast : [address] [address] Patient Name: REMEDIOS LIPSCOMB Sex: F : 1975 Location: [facility] Attending Physician: FERNANDO HILLMAN Ordering Physician: FERNANDO HILLMAN Exam Date: 02/02/2025 9:21 AM Exam Name: CT C SPINE WO Admitting Diagnosis(es): RADIOLOGY REPORT - FINAL EXAM: CT C SPINE WO HISTORY: chronic neck pain 49-year-old female with neck pain, limited range of motion, bilateral upper extremity radicular symptoms, cervical spine fusion 2 years ago, no recent injury. COMPARISON: None available. TECHNIQUE: Noncontrast axial CT images of the cervical spine were performed. Sagittal and coronal reformatted images were obtained. This CT exam was performed using one or more of the following dose reduction techniques: Automated exposure control, adjustment of the mA and/or kv according to patient size, or the use of iterative reconstruction techniques. Radiation Dose Information: CT Dose: CTDI volume is 18.4 mGy. Dose-length product is 562.4 mGy*cm. Page 1 of 3 [facility] Patient Name: REMEDIOS LIPSCOMB Sex: F : 1975 Exam Date: 02/02/2025 9:21 AM Exam Name: CT C SPINE WO Admitting Diagnosis(es): FINDINGS: See below. IMPRESSION: 1. No fracture of the cervical spine. 2. Postoperative changes of ACDF C5-C7 without evidence of hardware failure or complication. 3. Advanced cervical degenerative disc disease and facet arthropathy with moderate spinal canal stenosis at C5-C6 and C6-C7; mild to moderate spinal canal stenosis at C4-C5. Recommend follow-up noncontrast MRI of the cervical spine for better characterization if the patient is MRI compatible, as there is likely mass effect on the cervical spinal cord at multiple levels. The patient may not be MRI compatible as there is a partially visualized left chest pacemaker. 4. Multilevel significant neural foraminal stenosis including C2-C3 on the right; C3-C4 bilaterally; C5-C6 bilaterally; C6-C7 on the left. These findings may correspond to upper extremity radicular symptoms in the right C3, bilateral C4, bilateral C6, and left C7 nerve root distributions. This would also be better characterized with noncontrast MRI. 5. The patient is completely edentulous. 6. Mild right maxillary sinus disease. Created and electronically signed by: Hao Posey MD Signed Date: 02/02/2025 4:06 PM (CT) Dictated by: Hao Posey MD (CT) Page 2 of 3 [facility] Patient Name: REMEDIOS LIPSCOMB Sex: F : 1975 Exam Date: 02/02/2025 9:21 AM Exam Name: CT C SPINE WO Admitting Diagnosis(es): (CT) Page 3 of 3 Charles Fu judie, [place] - [facility] [employer] [facility] 02/03/2025 09:57:34 Problems Name Problem SNOMED Code Status Onset Date Resolution Date Notes Provider Name and Address Organization Details Recorded Time Metatarsamy lgia 64420850 Active RICK [address], [place], [address] , [employer] [facility] 4 17:29:30 Leukocyto sis 173865262 Active 2021 Not Available [facility] 3 07:36:52 Celluliti s of skin 608371774 Completed 202105/07/[address], [place], [address] , [employer] [facility] 4 17:29:48 Acute sinusitis 28702688 Completed 202105/07/[address], [place], [address] , [employer] [facility] 4 17:29:44 Backache 539956064 Completed Not Available [facility] 3 01:09:00 Increased frequency of urination 729306994 Completed Not Available [facility] 3 01:09:00 Pain in throat 253244256 Completed 202105/07/[address], [place], [address] , [employer] [facility] 4 17:30:30 Asthma 718583662 Active [address], [place], [address] , [employer] [facility] 4 14:10:27 Abdominal pain 19934746 Completed Not Available [facility] 3 01:09:01 Increased blood pressure 29693017 Completed 05/07/2024 Lupe Grey APRN [address], [address], [place], [address] , [employer] [facility] [employer] [facility] 4 17:29:55 Dysmenorr hea 947823363 Completed Not Available [facility] 3 01:09:01 Sleep pattern disturban ce 96984610 Completed Not Available [facility] 3 01:09:01 Eruption 720288551 Completed Lupe Grey APRN [address], [address], [place], [address] , [employer] [facility] [employer] [facility] 4 17:30:51 Chronic low back pain 221622993 Active 2022 Lupe Grey APRN [address], [place], [address] , [employer] [facility] [employer] [facility] 4 14:10:37 Booth's neuroma of right foot 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 9108 Active 2019 Not Available [facility] 3 07:36:52 Rib pain 091704672 Completed Not Available [facility] 3 01:09:02 Excessive growth of facial hair 745325327 Active RICK [address], [place], [address] , [employer] [facility] [employer] [facility] 4 17:31:01 Right lower quadrant pain 415467079 Completed Not Available [facility] 3 01:09:02 Pain in pelvis 12888554 Completed Not Available [facility] 3 01:09:02 Abscess of skin and/or subcutane ous tissue 51743311 Completed 202205/07/2024 Lupe Grey APRN [address], [address], [place], [address] , [employer] [facility] [employer] [facility] 4 17:30:54 Sinusitis 83982291 Completed 05/07/2024 Fernando carrillo MD [address], [address], [place], [address] , [facility] [employer] [facility] 5 15:48:57 Migraine 20284414 Active Lupe Grey APRN [address], [address], [place], [address] , [facility] 4 14:11:04 Menorrhag ia 014696407 Completed CLEMENTE Milan-Wally [address], [address], [place], [address] , [facility] [employer] [facility] 3 20:02:43 Multiple infected superfici al wounds 840964325 Completed 202105/07/2024 Lupe Grey APRN [address], [address], [place], [address] , [facility] [employer] [facility] 4 17:30:36 Sinus tarsi syndrome 135916137 Active RICK [address], [place], [address] , [facility] [employer] [facility] 4 17:29:15 Ureteric stone of lower third of ureter 396158065 Completed Not Available [facility] 3 01:09:03 Foot pain 50956737 Completed Not Available [facility] 3 01:09:03 Anxiety 28918651 Active Not Available [facility] 3 07:36:52 Dysuria 83263858 Completed Not Available [facility] 3 01:09:04 Peroneal tendiniti s 27289460 Completed 05/07/[address], [place], [address] , [facility] [employer] [facility] 4 17:30:23 Upper respirato ry infection 45808240 Completed 202205/07/2024 Lupe Grey APRN [address], [place], [address] , [facility] [employer] [facility] 4 16:32:12 Hyperlipi demia 88885529 Active [address], [place], [address] , [employer] 4 14:10:43 Dyspnea on exertion 12830130 Active [address], [place], [address] , [employer] 4 17:31:00 Verruca plantaris 82306808 Active 2018 Not Available [facility] 3 07:36:52 Capsuliti s 9210044 Active Not Available [facility] 3 07:36:52 Rhinitis 19036615 Completed Not Available [facility] 3 01:09:05 Primary osteoarth ritis of midfoot 846647710 Active [address], [place], [address] , [employer] 4 17:30:19 Liver enzymes level above reference range 626069965 Completed 202105/07/[address], [place], [address] , [employer] 4 17:30:47 Prediabet es 890689352 Active [address], [place], [address] , [employer] 4 14:11:19 Exposure to SARS-CoV- 2 Completed Not Available [facility] 3 01:09:06 Fatigue 44213854 Active RICK [address], [place], [address] , [employer] 4 14:10:49 Dystrophi a unguium 74491455 Active [address], [place], [address] , [employer] 4 14:10:41 Pain in limb 96446162 Completed Not Available [facility] 3 01:09:07 Skin lesion 79582577 Completed Not Available [facility] 3 01:09:07 Kidney stone 98124598 Completed Lupe Grey APRN [address], [place], [address] , [employer] 4 17:31:06 Pain of multiple joints 45646573 Completed 202205/07/2024 Lupe Grey APRN [address], [place], [address] , [employer] 4 17:30:33 Sleep apnea 41939285 Active 2022 Lupe Grey APRN [address], [place], [address] , [employer] 4 14:11:24 Chronic abdominal pain 648690440 Active 2022 Lupe Grey APRN [address], [place], [address] , [employer] 4 17:29:51 Mixed anxiety and depressiv e disorder 267535185 Active 2022 Lupe Grey APRN [address], [place], [address] , [employer] 4 14:10:57 Cervical radiculop athy 72754001 Active 2022 Lupe Grey APRN [address], [place], [address] , [employer] 4 14:10:32 Metabolic dysfuncti on-associ ated steatohep atitis 193169030 Active 2022 Lupe Grey APRN [address], [place], [address] , [employer] 4 14:11:07 Obesity 314284057 Active 2022 Lupe Grey APRN [address], [place], [address] , [employer] [facility] [employer] [facility] 4 14:11:15 Menorrhag ia 297938211 Active 2022 Not Available [facility] 3 07:36:52 Eruption 137730022 Completed 202205/07/2024 Lupe Grey APRN [address], [place], [address] , [employer] 4 17:30:51 Pain of toe of right foot 54491923669 9101 Completed 202205/07/2024 Lupe Grey APRN [address], [place], [address] , [employer] 4 17:30:26 Kidney stone 77382040 Completed 202205/07/2024 Lupe Grey APRN [address], [place], [address] , [employer] 4 17:31:05 Urinary incontine nce 514503216 Active 2022 Lupe Grey APRN [address], [place], [address] , [employer] 4 14:11:33 Essential hypertens ion 97804783 Active 2023 Lupe Grey APRN [address], [place], [address] , [employer] [facility] 4 17:29:01 Mass of upper limb 601884662 Active 2023 Lupe Grey APRN [address], [place], [address] , [employer] [facility] 4 17:14:15 Infection of big toe 153185223 Completed 202305/07/2024 Lupe Grey APRN [address], [place], [address] , [employer] [facility] 4 17:29:58 Pain radiating to thoracic region left side 596380936 Completed 202305/07/2024 Lupe Grey APRN [address], [place], [address] , [employer] [facility] 4 17:29:34 Nodule of lung 200130374 Active 2023 Lupe Grey APRN [address], [place], [address] , [employer] [facility] 4 10:27:29 Ingrowing nail of toe of right foot 67698635355 152757 Completed 202305/07/2024 Lupe Grey APRN [address], [place], [address] , [employer] [facility] 4 17:30:02 Dyspnea 434898614 Completed 202305/07/2024 Lupe Grey APRN [address], [place], [address] , [employer] [facility] 17:29:40 Cardiac pacemaker in situ 450294778 Active [address], [place], [address] , [employer] [facility] 4 12:06:50 Arthritis 9427377 Active 2023 Lupe Grey APRN [address], [place], [address] , [employer] [facility] [place] [facility] 4 11:17:36 Upper respirato ry infection 51687367 Active [address], [place], [address] , [employer] [facility] [place] [facility] 4 16:32:12 Pain in right foot 34761777709 9107 Active Lupe Grey, RICK [address], [place], [address] , [facility] 4 16:46:00 Acute urticaria 366137312 Active 2023 Mariola Lal NP [address], [place], [address] , [facility] 4 10:12:48 Mitral valve regurgita tion 24051968 Active 2023 Lupe Grey APRN [address], [place], [address] , [facility] 4 20:25:03 Sick sinus syndrome 47246741 Active 2023 Lupe Grey APRN [address], [place], [address] , [facility] 4 20:25:36 Butterfly rash 43029781 Active 2023 Lupe Grey APRN [address], [place], [address] , [facility] 4 16:26:12 Coronary arteriosc lerosis 97839412 Active 2024 Fernando carrillo MD [address], [place], [address] , [facility] 5 09:22:46 Vitamin D deficienc y 83149232 Active 2024 Fernando carrillo MD [address], [place], [address] , [facility] 5 15:30:33 Pain in face 50981852 Active 2024 Fernando carrillo MD [address], [place], [address] , [facility] 5 15:31:48 Sinusitis 33022131 Active 2024 Fernando carrillo MD [address], [place], [address] , [facility] [place] [facility] 5 15:48:57 Recurrent sinusitis 127752681 Active 2024 Pallavi Pulido RMA null, [place] [facility] [place] [facility] 5 14:01:33 Chronic neck pain 28358742926 07 Active 2024 Pallavi Pulido RMA null, [place] [facility] [place] [facility] 5 18:19:47 Hypokalem ia 96574745 Active 2024 Pallavi Pulido RMA null, [place] [facility] [place] [facility] 5 15:34:04 Hyperglyc emia 21835080 Active 2024 Pallavi Pulido RMA null, [place] [facility] [place] [facility] 5 15:34:55 Liver function tests outside reference range 045430543 Active 2024 Pallavi Pulido RMA null, [place] [facility] [place] [facility] 5 15:37:21 Acute cough Active 2024 Pallavi Pulido RMA null, [place] [facility] [place] [facility] 5 10:28:32 Notes:Medical History: Anxie ty Migraine headaches COVID [...] Lockwood DPM [address], [place], [address], [facility] [place] [facility] 02/12/2024 16:28:22 07/13/20 19 Date of Last Colonoscopy completed Not Available [employer] 12/11/2022 00:55:40 06/02/20 19 Cholecystectomy completed Not Available [employer] 12/11/2022 00:55:45 Pacemaker completed Not Available [facility] 12/11/2022 00:55:45 ligation of bilateral fallopian tubes completed Not Available [facility] 12/11/2022 00:55:45 Hysterectomy completed Tasha Hassan MA [facility] [employer] [facility] 06/16/2024 08:31:26 Neck completed Pallavi Pulido Amy [facility] [employer] [facility] 01/19/2025 15:15:40 insertion of stent into femoral artery completed Pallavi Pulido Amy [facility] [employer] [facility] 01/19/2025 15:16:01 Imaging Results None recorded. Procedure Notes None recorded. Medical Equipment None Reported. Allergies Allergen ID Allergen Name Allergen Category Reaction Reaction Severity Criticality Documentation Date Start Date Code Code System Note Provider Name and Address Organization Details Recorded Time Product containin g penicilli n (product) medicatio n Not available Not available Not available 12/11/2022 46868 8001 SNOMED Other react ions and sever ities : 'Adve rse react ion to subst ance' . Lupe Grey, RICK [address] [facility], [facility] [address], [place], [address] [place] [address] [employer] [facility] 16:45:37 Medications Name Sig Start Date [...] 5 x 2 days, 4x 2 days, 1g4brsc, 4p3xabu, 5h7csby PO in AM active Not Available Not [...] mometason e 50 mcg/actua tion nasal spray [place] 2 sprays every day by intranas al route. active Not Available Not Available No t Available gabapenti n 300 mg capsule TAKE 1 CAPSULE BY MOUTH EVERY DAY AT BEDTIME active Not Available Not Available No t [...] Not Available Not Available No t Available [place] 10 mg-325 mg tablet Take 1 tablet [...] t Available levofloxa nidhi 750 mg tablet TAKE 1 TABLET BY MOUTH TWICE A DAY FOR 7 DAYS active Not Available Not Available No t Available zolpidem 10 mg tablet TK ONE [...] e 50 mcg/actua tion nasal spray,monse pension [place] 2 sprays every day by intranas al [...] 2023 active Not Available Not Available Not Avjacqueline labpat ranolazin e ER 500 mg tablet,ex [...] Body weight Body temperature Heart rate Systolic And Diastolic Provider Name and Address Organization Details Last Updated DateTime 5 180.34 cm 27.9 kg/m2 78613.4 7 g 97.1 [degF] 72 /min 114/70 mm[Hg] DENTON López [place] [employer] [facility] [employer] 5 15:17:47 Date Recorded Body height Body mass index (BMI) Body weight Body temperature Heart rate Oxygen saturation Oxygen saturation in Arterial blood by Pulse oximetry Systolic And Diastolic Provider Name and Address Organization Details Last Updated DateTime 4 180.34 cm 33.9 kg/m2 112058. 95 g 95.2 [degF] 71 /min 98 % 98 % 130/92 mm[Hg] Tasha Hassan MA [facility] [employer] 4 08:29:07 Date Recorded Body height Body mass index (BMI) Body weight Body temperature Heart rate Oxygen saturation Oxygen saturation in Arterial blood by Pulse oximetry Systolic And Diastolic Provider Name and Address Organization Details Last Updated DateTime 4 180.34 cm 33.9 kg/m2 718313. 95 g 98.1 [degF] 61 /min 98 % 98 % 120/74 mm[Hg] Tonie Mathews CMA [place] [employer] [facility] [employer] 4 09:48:09 Date Recorded Body height Body mass index (BMI) Body weight Body temperature Heart rate Oxygen saturation Oxygen saturation in Arterial blood by Pulse oximetry Systolic And Diastolic Provider Name and Address Organization Details Last Updated DateTime 4 180.34 cm 32.8 kg/m2 566008. 21 g 97.2 [degF] 59 /min 99 % 99 % 118/76 mm[Hg] Tasha Hassan MA [place] [employer] [facility] [employer] 4 16:11:12 Social History Question Answer Notes LastModified by Organizat ion Details LastModified Time Tobacco Smoking Status Former Smoker quit 2016 Not Available [facility] 12/11/2022 00:54:06 Do You Have An Advance Directive? No MIGRATION.99539 55870 Information not available 12/11/2022 What Is Your Level Of Caffeine Consumption? None MIGRATION.19586 90048 Information not available 12/11/2022 How Much Tobacco Do You Chew? None MIGRATION.20212 70909 Information not available 12/11/2022 In The 14 Days Before Symptom Onset, Have You Had Close Contact With A Laboratory-confi rmed COVID-19 While That Case Was Ill? No MIGRATION.02250 60846 Information not available 12/11/2022 In The 14 Days Before Symptom Onset, Have You Had Close Contact With A Person Who Is Under Investigation For COVID-19 While That Person Was Ill? No MIGRATION.53953 43154 Information not available 12/11/2022 What Type Of Diet Are You Following? REGULAR MIGRATION.09743 42252 Information not available 12/11/2022 Which Illicit Or Recreational Drugs Have You Used? None MIGRATION.26082 60297 Information not available 12/11/2022 Have There Been Any Changes To Your Family Or Social Situation? No MIGRATION.78825 11661 Information not available 12/11/2022 What Is The Fluoride Status Of Your Home? Unknown MIGRATION.24755 22414 Information not available 12/11/2022 When Did You Quit Smoking? 1-5yearssincelastc igarette MIGRATION.48702 12843 Information not available 12/11/2022 Are There Any Guns Present In Your Home? No MIGRATION.44932 14539 Information not available 12/11/2022 Do You Use Insect Repellent Routinely? Yes MIGRATION.68824 29882 Information not available 12/11/2022 [facility] M[facility].54749 22412 Information not available 12/11/2022 What Was The Date Of Your Most Recent Tobacco Screening? 01/19/2025 Information not available 01/19/2025 How Many Children Do You Have? 1 Information not available 06/16/2024 Do You Have Any Pets? Yes MIGRATION.43379 66851 Information not available 12/11/2022 What Is Your Relationship Status? Information not available 06/16/2024 Do You Use Your Seat Belt Or Car Seat Routinely? Yes MIGRATION.47172 36659 Information not available 12/11/2022 Do You Have Smoke And Carbon Monoxide Detectors In Your Home? Yes MIGRATION.66641 18780 Information not available 12/11/2022 At What Age Did You Start Smoking Tobacco? 19 Information not available 01/19/2025 Are You Passively Exposed To Smoke? No MIGRATION.65527 10833 Information not available 12/11/2022 Are There Any Smokers In Your House? No MIGRATION.69059 99907 Information not available 12/11/2022 How Much Tobacco Do You Smoke? No 1/2 Ppd Information not available 01/19/2025 Do You Use Sunscreen Routinely? Yes MIGRATION.09325 16374 Information not available 12/11/2022 Have You Recently Traveled Abroad? No MIGRATION.53464 97857 Information not available 12/11/2022 Do You Have Any Dietary Restrictions? No MIGRATION.74209 79585 Information not available 12/11/2022 Sex: Female Functional Status Question Answer Note LastModified by Organizat ion Details LastModified Time Do you use any illicit or recreational drugs? No Information not available 01/20/2024 Do you or have you ever used any other forms of tobacco or nicotine? No Information not available 01/20/2024 What is your level of alcohol consumption? None MIGRATION.000682 4434 Information not available 12/11/2022 Do you or have you ever used smokeless tobacco? Never used smokeless tobacco MIGRATION.301766 9641 Information not available 12/11/2022 Are you currently employed? 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 Never used electronic cigarettes MIGRATION.393834 0275 Information not available 12/11/2022 What is your exercise level? Occasional MIGRATION.973762 1967 Information not available 12/11/2022 Mental Status Question Answer Note LastModified by Organizat ion Details LastModified Time Do you feel stressed (tense, restless, nervous, or anxious, or unable to sleep at night)? QL1205-2 MIGRATION.855949684 6 Information not available 12/11/2022 Family History Relationship Description Onset Age of this Age Resolved Age Notes LastModified by Organization Details LastModified Time Paternal Grandmother Malignant tumor of breast MIGRATION.073 4807360 Not available 12/11/2022 00:55:52 Mother Hypothyroidi sm MIGRATION.327 0929477 Not available 12/11/2022 00:55:52 Mother Hypertensive disorder MIGRATION.287 8919956 Not available 12/11/2022 00:55:52 Brother Malignant neoplasm of urinary bladder MIGRATION.932 9530023 Not available 12/11/2022 00:55:52 Brother Malignant neoplasm of urinary bladder MIGRATION.775 6036784 Not available 12/11/2022 10:41:03 Father Hypertensive disorder MIGRATION.056 2995951 Not available 12/11/2022 00:55:52 Medical History Condition [...] N CHRONIC PAIN SYNDROME N HYPOTHYROIDISM N CONSTIPATION N CAROTID BLOCKAGE N BACK / NECK PROBLEMS N ATHEROSCLEROSIS [...] split virus, quadrivalent, PF 5 completed Lupe Grey APRN [address] [facility], [address], [address], [employer] [facility] [employer] 05/07/2024 17:26:03 Influenza, split virus, quadrivalent, PF 9 completed Lupe Grey APRN [address] [facility], [facility] [address], [place], [address], [employer] [facility] [employer] 05/07/2024 17:26:18 Influenza, split virus, quadrivalent, preservative 9 completed Lupe Grey APRN [address] [facility], [facility] [address], [place], [address], [facility] [employer] 05/07/2024 17:26:18 Influenza, split virus, quadrivalent, PF 2 completed Not Available [facility] 07/08/2023 07:36:53 Influenza, split virus, trivalent, PF 4 completed 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, [employer]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 [address] [facility], [address], [place], [address], [facility] [employer] 08/24/2024 08:02:41 Past Encounters Encounter ID Performer Location Encounter Start Date Encounter Closed Date Diagnosis/Indication Diagnosis SNOMED-CT Code Diagnosis ICD10 Code Diagnosis Note [id number] RADHA Milan S_[facility]G Internal Med [facility] [address] [address] 12/11/2020 00:00:00 12/11/2020 14:02:50 [id number] RADHA Milan S_[facility] Internal Med [facility] [address] [facility], [facility] [address] [place] [address] 12/22/2020 00:00:00 12/22/2020 14:36:19 [id number] Fenrando carrillo MD S_[facility] Internal Med [facility] [address] [address] 03/13/2021 00:00:00 03/13/2021 15:46:11 [id number] A[facility]_Histor ic[facility] A[facility] Podiatry [place] [address] [facility] [address] [place] [address] 2021 00:00:00 03/15/2021 09:29:23 [id number] Dion Bonilla MD AHS_GMG [facility] [address] [place], [place] [address] [place] [address] 05/01/2021 00:00:00 05/01/2021 16:38:55 [id number] Dion Bonilla MD AHS_[facility] [address] [place], [place] [address] [place] [address] 05/15/2021 00:00:00 05/15/2021 16:27:01 [id number] MD CHUCKY CarterS_GMG ENT [place] [address] [facility] [place] [address] 06/12/2021 00:00:00 06/12/2021 16:20:40 [id number] MD TIMMY Carter_GMBimal ENT [place] [address] [facility] [place] [address] 12/04/2021 00:00:00 12/04/2021 16:41:56 [id number] MD CHUCKY RamirezS_GMG Internal Med [address] [address] [facility] [address] [place] [address] 12/10/2021 00:00:00 12/10/2021 12:22:36 [id number] MD CHUCKY RamirezS_GMG Internal Med [place] [address] [facility] 15 [place] [address] 02/04/2022 00:00:00 02/04/2022 16:59:41 [id number] MD CHUCKY RamirezS_GMG Internal Med [place] [address] [address] [facility] , [facility] [place] [address] 05/29/2022 00:00:00 05/29/2022 14:29:00 [id number] MD CHUCKY RamirezS_GMG Internal Med [address] [facility] [address] [place] [address] 08/23/2022 00:00:00 08/23/2022 16:15:38 [id number] MD CHUCKY RamirezS_GMG Internal Med [address] [facility] 15 [place] [address] 10/18/2022 00:00:00 10/18/2022 16:08:06 [id number] MD CHUCKY AnnS_GMG General Surgery [address] [facility] [address] [place] [address] 10/24/2022 00:00:00 10/24/2022 13:02:36 [id number] Melida Ten, DISC JOCKEY-BC S_G Pulmonolo gy Fredi Morton [address] [place] [address] 11/18/2022 00:00:00 11/18/2022 16:38:14 [id number] Jo Burks NP S[facility] [address] [facility] [address] [address] 03/26/2021 00:00:00 03/26/2021 13:21:21 [id number] Jo Burks NP S_[facility] [address] [address] 07/31/2021 00:00:00 07/31/2021 10:17:57 [id number] Jo Burks NP S[facility] [address] [facility] [address] [address] 11/07/2021 00:00:00 11/07/2021 10:52:56 [id number] Jo Burks NP S_[facility] [address] [address] 03/20/2022 00:00:00 03/20/2022 14:35:14 [id number] Jo Burks NP S_[facility] [address] [address] 07/03/2022 00:00:00 07/03/2022 15:33:58 [id number] Jo Burks NP [facility] [address] [facility] [address] [address] 10/30/2022 00:00:00 10/30/2022 16:39:13 [id number] Fernando carrillo MD S_[facility]G Internal Med [place] [address] [facility] [place] [address] 12/25/2022 11:12:18 12/25/2022 11:45:36 Hyperlipidemia 43488232 E78.5 on atorvastat in Pain of mu ltiple joints 99311638 M25.50 was following rheum, now is doing better, no longer on meds/follo wing them Menorrhagia 017063994 N9 2.0 now follow [facility] [employer]- Dr. Thrasher at [facility]/p hyst Asthma 148677111 J45.90 9 recommend she take her Advair as prescribed on albuterol prnget re-establi shed with pulm Sleep apnea 66020540 G47 .30 is s/p sleep study no JAMILA, but could be checked for narcolepsy - she declines referral for MSLT or for sleep specialist at this time Chronic ab dominal pain 377832822 R10.9 Follows GI- Dr. Juan Francisco Martinez Mixed anxi ety and depressive disorder 084051247 F41.8 now following psychiatry - Jo at [facility] duloxetine , wellbutrin call office if any change in mood or behavior Cardiac pa eldon in situ 911699393 Z95.[address] Johnson Cervical radiculopathy 37676977 M54.12 following neurosurge ry- Dr. 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 Menon Body mass index 25-29 - overweight 739822752 Z68.29 recommend healthy, well balanced mealsfocus on lean meats, fresh vegetables , fresh fruits, whole grainsredu ce fast/proce ssed foods or eating out to no more than 1-2 times per weekaim to get 30 min of exercise most days of the week- walking is a great choice Chronic low back pain 27 3852201 M54.50 [facility]- she declinesER precaution s Screening mammography 24 847616 Z12.31 [id number] Jo Burks NP [facility] [address] [facility], [address] [place] [address] 04/08/2023 15:58:21 04/08/2023 16:43:25 [id number] Dion Bonilla MD [facility] [address] [facility] [address] [place] [address] 05/26/2023 16:28:58 05/26/2023 17:01:12 Kidney stone 29452640 N20.0 Hx of stones, check kub. Urinary incontinence 165 075137 R32 MOstly stress, went over conservati ve measures including pelvic floor exercises and timed voiding will call if wants PT. [id number] Fernando carrillo MD S[facility] Med [facility] [address] [facility] [place] [address] 1 06/23/2023 10:38:48 06/23/2023 11:01:51 Hyperlipidemia 33810882 E78.5 on atorvastat in Pain of mu ltiple joints 94044986 M25.50 was following rheum, now is doing better, no longer on meds/follo wing them Menorrhagia 968225792 N9 2.0 now follow [facility] [employer]- Dr. Thrasher at [facility]/p hyst Asthma [id number] J45.90 9 recommend she take her Advair as prescribed on albuterol prnfollows sharon- Melida Caal Sleep apnea 23267435 G47 .30 is s/p sleep study no JAMILA, but could be checked for narcolepsy - she declines referral for MSLT or for sleep specialist at this time Chronic ab dominal pain 833179096 R10.9 Follows GI- Dr. Juan Francisco Martinez Mixed anxi ety and depressive disorder 266077483 F41.8 now following psychiatry - Jo at [facility] duloxetine , wellbutrin call office if any change in mood or behavior Cardiac pa eldon in situ 442366964 Z95.[address] Johnson Cervical radiculopathy 45192383 M54.12 following neurosurge ry- Dr. Guevara s/p cervical fusion gai n recommend she make a followup appt with her neurosurge on- this was recommendshane cyr previously and she did not goER precaution s Prediabetes 908521531 R7 3.03 insurance will not cover injectable sshe is working on diet/exerc ise Metabolic dysfunction-associate d steatohepatitis 536493225 K75.81 Follows [facility] hepatology - Dr. Menon Body mass index 25-29 - overweight 924645883 Z68.29 recommend healthy, well balanced mealsfocus on lean meats, fresh vegetables , fresh fruits, whole grainsredu ce fast/proce ssed foods or eating out to no more than 1-2 times per weekaim to get 30 min of exercise most days of the week- walking is a great choice Chronic low back pain 27 6094223 M54.50 wants new pain management referral in [facility] le- referred to [facility] but she decided not to faiza cyr PT- she declinesER precaution s Screening mammography 24 156477 Z12.31 [id number] Jo Burks NP [facility] [address] [address] 09/18/2023 09:43:32 09/18/2023 10:33:40 [id number] Fernando [facility]illo [facility] [address] [address] 01/20/2024 16:42:46 01/20/2024 17:19:13 Hyperlipidemia 42686274 E78.5 Mixed anxi ety and depressive disorder 552125947 F41.8 Fatigue 61249147 R53.83 Asthma 284948981 J45.90 9 Essential hypertension 36335053 I10 Mass of upper limb 91641 5008 R22.32 Infection of big toe 309 614076 L08.9 [id number] Jo Burks NP [facility] [address] [address] 01/28/2024 11:36:00 01/28/2024 12:24:25 [id number] Rich Lockwood DPM [facility] [place] [address] [place] [address] 02/12/2024 15:23:32 02/13/2024 09:05:12 Ingrowing nail of toe of right foot 6345352671 6295952 L60.0 great toe, medial borderpart ial matrixecto [...] the nearest ER.Follow- up in 10 days [id number] Rich Lockwood DPM [facility] [address] [place] [address] 02/23/2024 15:50:23 02/23/2024 18:00:13 Ingrowing nail of toe of right foot 0630396767 3505464 L60.0 great toe, medial borderpart ial matrixecto [...] the nearest ER.Follow- up in 7 days [id number] Fernando carrillo MD [facility] [address] [address] 05/10/2024 11:36:27 05/10/2024 12:11:55 Screening mammography 50554629 Z12.31 Asthma 823961972 J45.90 9 [id number] Fernando carrillo MD [facility] [place] [facility] [address] [facility] [address] [facility] [place] [address] 06/16/2024 08:20:27 06/16/2024 08:53:54 Asthma 743921322 J45.383 [id number] Mariola Lal NP [facility] [address] [place] [address] 07/15/2024 09:34:14 07/15/2024 10:20:49 Asthma 665861801 J45.31 ACT on no maintenanc e inhaler: [...] in breathing and increase use of inhaler [id number] Fernando carrillo MD [facility] [address] [address] 08/23/2024 15:48:14 08/23/2024 16:47:41 Butterfly rash 97138829 R21 Administra tion of influenza vaccine 51281433 Z23 Urinary incontinence 165 696467 R32 [id number] Fernando carrillo MD [facility] [address] [facility] [place] [address] 01/19/2025 14:52:22 01/19/2025 15:48:57 Screening - NAD 672723626 Z13.9 C-scope: 09/2022- Valentin Martinez- polyp- repeat 5 years- 09/2027 Mammogram: Get this WWE- [facility] [employer] [facility]- Dr. Thrasher at [facility] Get yearly flu shot, get tdap if not doneCan do shingrix vaccine and also get Prevnar #20 RTC 3 months, do labs, ER if worse, she did verbalize her understand ing of the above 45 minutes spent with her, discussed her various complaints and morbiditie s, labs provided and referrals provided Hyperlipidemia 80543439 E78.5 Not on any medsGet labs Asthma 270346492 J45.90 9 On HHNsOn AlbuterolO n floventNee ds to see pulmonary Sleep apnea 77748646 G47 .30 See pulmonaryR eferred Mixed anxi ety and depressive disorder 089132162 F41.8 On bupropion SR 200mg bidOn duloxetine 60mg dailyNot suicidal or homicidalS ees psychiatry , referred 01/19/2025 Cervical radiculopathy 93679095 M54.[address] Patel/p surgeryWily ds to keep apt with NSGet on short course of meloxicam Chronic low back pain 27 9699902 M54.50 On ibuprofen, advised to take this very rarelyKeep apt with NSReferred 01/19/2025 Coronary arteriosclerosis 67000577 I25.10 S/p PMOn HCTZ 25mg dailyOn losartan 25mg dailyOn metoprolol 50mg bid Sees Dr Johnson, referred 01/19/2025 as she has noted dizziness Metabolic dysfunction-associate d steatohepatitis 590281092 K75.[address] Menon in [place], referred 01/19/2025 Vitamin D deficiency 347 63511 E55.9 Screening mammography 24 012518 Z12.31 Gynecologi c examination 43365909 Z01.419 Sinusitis 34437115 J32.9 Mainly L sided sinuses, c/o throbbing pain, will get CT sinusGet on yrte Postmenopausal state 764 00156 Z78.0 [id number] Fernando carrillo MD [facility] [address] [place] [address] 01/21/2025 11:21:31 01/21/2025 11:53:13 Health Concerns Section Related Observation LastModified by Organization Detai ls LastModified Time None Recorded Concern Status LastModified by Organization Details LastModified Time None Recorded Advance Directives Directive N: Payers Insurance Date Sequence Insurance Name Policy Number Policy Lebron Covered Member ID Lebron Member ID Guarantor Name 12/06/2024 [facility] Remedios Lipscomb SELF SELF Remedios Lipscomb 03/31/2023 1 *SELF PAY* Am jean carlos Lipscomb 04/06/2025 1 [place] [id number] Remedios Lipscomb [id number] Remedios Lipscomb 02/23/2024 1 [place] [id number] Remedios Lipscomb [id number] Remedios Lipscomb 04/06/2025 1 *SELF PAY* Am y Lilli Marta Notes Date Note Type Note Provider Name and Address Organization Details Recorded Time 06/16/2024 text/html Remedios presents tod ay for 3 month follow up. She was wheezing, coughing with no results. She states that she was in the ED at [facility]. She was not told the results of her testing there. And was not sent home with any prescriptions. 05/10/2024trino presents today for dyspnea, throat pain. She states that she is constantly feeling short of breath. She has been to see cardiology and ED for these episodes. 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 She states that [...] that she was in the ED at [facility]. She was not told the results of her testing there. And was not sent home with any prescriptions. 05/10/2024my presents today for dyspnea, throat pain. She states that she is constantly feeling short of breath. She has been to see cardiology and ED for these episodes. Lupe Grey APRN [address], [place], [address], [employer] [facility] [employer] 08/24/2024 08:38:02 01/19/2025 text/html OV 01/19/2025: H ere to establish care Present Hx:HLDAsthmaAnxiety/Dep ressionLBPCADNon alcoholic hepatic steatosisSinusitis Here to discuss multiple issues, wants to discuss sinus symptoms, has noted facial pain and this has caused her dizzy symptoms Fernando Hillman MD [address], [place], [address], [employer] 01/19/2025 18:36:01 OBGyn Episode No OBEpisode recorded.
--- OUTSIDE RECORDS SUMMARY | 2025-04-20 01:23 | XMS_ITS | Clinical Summary ---
Author Organization [facility] Address [address] [place] [address] Phone Care Team Providers Care Installer Interior Assemblies Name Role Phone Minerva Richardson NP Primary [...] Encounters Date Type Department Care Team Description 03/29/2025 External Device Data STL ABSTRACTION Provider, Abstract 03/15/2025 External Device Data STL ABSTRACTION Provider, Abstract 03/15/2025 Telephone [facility] - [facility] [place] [address] [facility] [facility] [facility] [place] [address] Provider, Abstract new pt ppwk 03/03/2025 External Device Data STL ABSTRACTION Provider, Abstract 03/02/2025 External Device Data STL ABSTRACTION Provider, Abstract 03/01/2025 External Device Data STL ABSTRACTION Provider, Abstract 01/26/2025 Telephone [facility] - [facility] [place] [address] [facility] [address] [place] [address] Edis Veronica MD Wants Appointment 01/25/2025 External Device Data STL ABSTRACTION Provider, Abstract 01/25/2025 Abstract [facility] - [facility] [place] [address] [facility] [address] [place] [address] Provider, Abstract from Last 3 Months Family History Medical History Relation Name Comments Hypertension Brother Prostate Cancer Brother Hypertension Father Breast Cancer Maternal Grandmother Hypertension Maternal Grandmother Hypertension Mother Hypertension Paternal Grandmother Relation Name Status Comments Brother Father Maternal Grandmother Mother Paternal Grandmother Social History Tobacco Use Types Packs/Day Years Used Date Smoking Tobacco: Former Cigarettes Q uit: 2011 Smokeless Tobacco: Never Alcohol Use Standard Drinks/Week [...] Comments Blood Pressure 107/78 11/21/2021 10: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 Pulse 86 08/29/2021 2:41 PM MOTORCYLES FINAL INSPECTOR Temperature 36.8 C (98.2 F) 11/21/2021 10: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 Respiratory Rate 16 07/09/2021 4:08 PM CDT Oxygen Saturation 95% 07/09/2021 4:08 PM CDT Inhaled Oxygen Concentration - - Weight 98.9 kg (218 lb) 11/21/2021 10: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 Height 182.9 cm (6') 11/21/2021 10: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 Body Mass Index 29.57 11/21/2021 10: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 Plan of Treatment Upcoming Encounters Date Type Department Care Team (Late st Contact Info) Description 05/04/2025 3:00 PM CDT Office Visit [facility] - [facility] [address] [facility] [place] [address] Edis Veronica MD [address] [facility] [place] [facility] [place] [address] [address] -[phone] (Work) Health Maintenance Due Date Last [...] 2019 ZOSTER VACCINE (1 of 2) 2024 Preventative Visit- Commercial 10/13/2024 INFLUENZA VACCINE (#1) 2025 2, 08/17/2019, 08/16/2019 Medical Devices Implanted Type Area Ropewalk Rope Maker Device Identifier Shelf Expiration Date Model / Serial / Lot Triad Cc Allograft Implanted:Qt y: 1 on 07/09/2021 by Edis Veronica MD at [facility] Bone N/A: Spine Cervical Anterior [employer] 11/08/2025 [id number] / [id number] / Hemostatic Surgiflo 8ml W/ Thrombin 2994 - Old - [id number] Implanted:Qt y: 1 on 07/09/2021 by Edis Veronica MD at [facility] Hemostatic N/A: Spine Cervical Anterior [employer]J- [employer] [id number] 11/12/2022 2994 / / [id number] Acp 1.6v, 42mm, 2 Level Plate Implanted:Qt y: 1 on 07/09/2021 by Edis Veronica MD at [facility] Plate N/A: Spine Cervical Anterior [employer] [id number] / LOAD 2 9 / STERILIZED 06-29-21 Description:All Nuvasive cer vical hardware was processed on requisition, [id number]. Acp Screw, 3.5 X 15 Mm Self Drilling Jailyn Implanted:Qt y: 6 on 07/09/2021 by Edis Veronica MD at [facility] Screw N/A: Spine Cervical Anterior [employer] [id number] / LOAD 2 9 / STERILIZED 06-29-21 Allograft Triad Cc Cerv [id number] - [id number] Implanted:Qt y: 1 on 07/09/2021 by Edis Veronica MD at [facility] Tissue N/A: Spine Cervical Anterior [employer] 01/28/2026 [id number] / [id number] / Pacemaker Insurance BCBS BLUE ACCESS/TRUE BLUE PPO RX [employer] Commercial Care Teams Installer Interior Assemblies Relationship Specialty Start Date End Date Minerva Richardson NP PCP - General NURSE PRACTITIONER 12/27/20
--- OUTSIDE RECORDS SUMMARY | 2025-04-20 01:23 | XMS_ITS | Clinical Summary ---
Author Organization [facility] [employer] Address [address] [place] [address] Care Team Providers Care Pouncer Machine Name Role Phone Hayley Fonseca APRN-CAR SEAT MAKER Primary Care Provider [phone] Source Comments [facility] [employer],non-owned Affiliates and Associated Physician Practices is amultiple site organization consisting of ambulatory clinics and hospital sitesin [place], [place], [place] and [place]. This disclosure is being madepursuant to the Care Everywhere program and may not contain all information available regarding this patient. 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 1 10/30/2018 [...] Office Visit [facility] - [address] [place] [address] Estrella Quintanilla MD [address] [facility] [address] [place] [address] 05/05/2025 1:30 PM CDT Procedure visit [facility] - GI [address] [place] [address] Health Maintenance Due Date Last Done Comments COLOGUARD (AGES 45-75) - COLON CA SCREENING 1974 COLON MONITORING 1974 COLONOSCOPY - COLON CA SCREENING 1974 CT COLONOGRAPHY - COLON CA SCREENING 1974 Colorectal Cancer Screening 1974 FIT - COLON CA SCREENING 1974 FLEX SIG - COLON CA SCREENING 1974 LIPID TESTING 1974 MAMMOGRAM 1974 HIV SCREENING 1989 HEPATITIS C SCREENING 03/09/1992 DTAP/TDAP/TD VACCINES (1 - Tdap) 1993 HEPATITIS B VACCINE (1 of 3 - 19+ 3-dose series) 1993 PAP SMEAR 1995 PNEUMOCOCCAL VACCINE 50+ (1 of 1 - PCV) 2024 ZOSTER VACCINE (1 of 2) 2024 COVID-19 VACCINE (1 - 2023-25 season) 2024 DEPRESSION SCREENING 10/13/2024 INFLUENZA VACCINE (#1) 2025 , 08/23/2022, 08/17/2019, Additional history exists SCREENING FOR DIABETES 07/23/2025 07/23/2022 HIB VACCINE [...] (ABNORMAL) COMPREHENSIVE METABOLIC PANEL (07/23/2022 1:16 PM [facility]) BUN 11 7 - 26 mg/dL 07/23/2022 1:51 PM [facility] Creatinine 0.98(H) 0.56 - 0.96 mg/dL 07/23/2022 1:51 PM [facility] Sodium 137 136 - 145 mmol/L 07/23/2022 1:51 PM [facility] Potassium 3.9 3.5 - 4.5 mmol/L 07/23/2022 1:51 PM [facility] Chloride 106 98 - 107 mmol/L 07/23/2022 1:51 PM [facility] CO2 23 22 - 29 mmol/L 07/23/2022 1:51 PM [facility] Glucose 92 70 - 115 mg/dL 07/23/2022 1:51 PM [facility] Calcium 8.5 8.4 - 10.2 mg/dL 07/23/2022 1:51 PM [facility] Protein Total 6.8 6.0 - 8.3 g/dL 07/23/2022 1:51 PM [facility] Albumin 3.7 3.4 - 5.0 g/dL 07/23/2022 1:51 PM [facility] Bilirubin Total 0.5 0.2 - 1.2 mg/dL 07/23/2022 1:51 PM [facility] Alkaline Phosphatase 91 40 - 150 U/L 07/23/2022 1:51 PM [facility] ALT 41 5 - 55 U/L 07/23/2022 1:51 PM [facility] AST 30 5 - 34 U/L 07/23/2022 1:51 PM [facility] Anion Gap 12 8 - 18 07/23/2022 1:51 PM [facility] BUN/Creatinine Ratio 11 7 - 23 07/23/2022 1:51 PM [facility] Osmolality Calculated 283 270 - 300 mOsm/kg 07/23/2022 1:51 PM [facility] Albumin/Globulin Ratio 1.2 1.1 - 2.3 07/23/2022 1:51 PM [facility] eGFR by CKD-EPI 71(L) >=90 mL/min/1.7 3 m2 07/23/2022 1:51 PM CDT [facility] Blood BLOOD SPECIMEN / Unknown Venipuncture / Unknown 07/23/2022 1:16 PM CDT 07/23/2022 1:23 PM CDT us Mike Oh MD LAB - CHEMISTRY ORDERABLES Final Result [facility] [address] [place] [address], [place] [phone] from Last 3 Months or Most Recently Relevant to Health Maintenance Insurance ANTHEM Care Teams Pouncer Machine Relationship Specialty Start Date End Date Hayley Fonseca APRN-CNP [address] [address] PCP - General 12/18/21
--- OUTSIDE RECORDS SUMMARY | 2025-04-20 01:23 | XMS_ITS | Continuity of Care Document ---
Author Organization [facility] Address [address] [place] [address] Phone Care Team Providers Care Zigzag Elastic Attacher Name Role Phone Alex FITZGERALD, LIZBETH, Finn BRADY Unavailable Unava ilable Alex FITZGERALD FACC, FSCAI, Gil Unavailable Unava ilable Procedures Procedure Date ICM DEVICE INTERROGAT REMOTE Advance Directives Directive Yes / No Effective Date File Name No Information Encounters Encounter Description Practice Location Reason(s) For Visit Diagnoses Date Provider Providers Copied on Encounter [facility], [address] [place] [address], [id number] , tel: [phone] [facility] Robert Essential (primary) hypertensionPresence of cardiac pacemaker Alex Briseno. [address] , [address] [place] [address], [id number] , [place]. tel:[phone] Referring Provider: [address] [place] [address], [address] . tel:[phone] sulting Provider: Finn Arzola [address] [facility], [place], [address] . tel:[phone] Family History Family Member Type Diagnosis Age At Onset No Information Payers Payer name Insurance type Covered green party ID Authoriza tion(s) [facility] [id number] Social History Type Description Quantity Date Captured Comments Sex Female Smoking Status No Information Chief Complaint And Reason For Visit No Information Reason For Referral Reason For Referral No Information History Of Present Illness Encounter Date Complaint History Of Prese nt Illness No Information Functional Status Date Functional Assessmen t No Information Instructions Date Instruction Additional Infor mation No Information Assessments Type Assessment Date No Information Patient Care Teams Name Effective Dates (start - stop) Status Members No Information
[2025-04-20] MEDS: LACTATED RINGERS 1,000 ML 30 ML IV CONT (08:45)
--- NOTE | 2025-04-20 09:17 | WPDANESEPPF ---
Anes - Initial Pre Proc Eval Procedure: Operation Date: 04/20/25 10:00 Proposed Procedures p Left Carpal Tunnel Release - Mary Ann North MD Date/Time: 04/20/25 09:17 Surgeon: Mary Ann North MD Pre Op Diagnosis: left carpal tunnel syndrome Patient Data Age: 50 Gender: F Height: 1.8 m Weight: 87.54 kg Allergies Allergy/AdvReac Type Severity Reaction Status Date / Time Penicillins Allergy Intermediate Hives Verified 04/12/25 15:33 escitalopram (From Lexapro) Allergy Hives Verified 04/12/25 15:33 Home Medications ?Medication ?Instructions ?Recorded ?Confirmed ?Type duloxetine 60 mg capsule,delayed 60 mg PO DAILY 01/30/20 04/12/25 History release hydrochlorothiazide 25 mg tablet 25 mg PO DAILY 02/18/20 04/12/25 History metoprolol tartrate 50 mg tablet 50 mg PO Q12H 01/17/25 04/12/25 History bupropion HCl 100 mg tablet 100 mg PO BID 02/14/25 04/12/25 History Patient hx anesthesia problems: none Family hx anesthesia problems: none Results Review: All pre-operative results and documents have been reviewed as part of the pre-operative evaluation. [facility] Past Medical History Medical History Colon cancer screening Lupus Bone island Nausea RUQ pain Vasovagal syncope Anxiety Hypertension Surgical History Surgical History History of tubal ligation S/P placement of cardiac pacemaker History of cholecystectomy Social History Social History Smoking status: Never smoker Alcohol intake: never Substance use: never Substance use type: does not use Do You Feel Safe in your Home?: Yes Lack of Transportation: No Lack of Food: Never True Current Housing: I Have Housing Concerned About Future Housing: YES Difficulty Paying Gas/Electric Bills: No Difficulty Paying for Meds: No Currently Unemployed: No Education: High School Diploma/GED Difficulty w/ Childcare or Family Care: No Living arrangements: with family Gender identity (if verbalized by the patient): Female Spiritual care concerns: No Anes - Eval Final PreProcedure Day of Procedure 04/20/25 09:17 Patient weight: overweight Heart: regular rate and rhythm Lungs: clear to auscultation Airway: Mallampati scale class II Neurological: alert and oriented Last oral intake: >/= 8 hours ASA classification: III Emergent: no Anesthetic plan: proceed Anesthesia type and monitoring: general GIVS and standard monitoring Results Review: All pre-operative results and documents have been reviewed as part of the pre-operative evaluation. Informed Consent: The patient's anesthetic plan and its attendant risks and benefits were discussed with the patient/family/POA. Questions were solicited and answers provided to the satisfaction of the patient/family/POA.
--- NOTE | 2025-04-20 09:26 | WPDHPUPDATE1 ---
History and Physical Update Update Date/Time: 04/20/25 09:26 History and Physical has been reviewed, including an updated exam of the patient. There are NO changes in the patient's condition. Risks, benefits, and alternatives have been discussed and questions answered. Patient agrees to proceed with procedure.
[2025-04-20 09:29] VITALS: BP 129/88; PULSE 71; TEMP 36.3; O2SAT 100; BMI 26.8
[2025-04-20] MEDS: ceFAZolin 2 GM in SODIUM CHLORIDE 0.9% IV 50 ML 100 ML IVPB (09:40)
[2025-04-20] MEDS: KETOROLAC 30 MG/ML VIAL (*BKC) IV PUSH (10:02)
[2025-04-20] MEDS: BUPivacaine HCL 0.5% 10 ML AMP INFILTRATE (10:07)
[2025-04-20 10:19] VITALS: BP 116/80; PULSE 80; RESP 16; O2SAT 99
--- NOTE | 2025-04-20 10:24 | P.OP_ITS ---
Procedure Note - Detailed Date of Procedure 04/20/25 Pre-op Diagnosis left carpal tunnel syndrome Post-op Diagnosis Same Procedure Performed Left carpal tunnel release Surgeon Mary Ann North MD Local [employer] [facility] Description of Procedure The patient was brought to the operating room where anesthesia was induced. The patient remained supine on the bed with the left arm extended onto an armboard. A straight incision on the ulnar side of the thenar crease in line with the anterior webspace between the third and fourth finger was planned. The hand and arm were prepped and draped in usual sterile fashion. Time-out was performed. The incision was injected local anesthetic. A 15 blade scalpel was used to open the incision. The bipolar was used to obtain hemostasis. A Metzenbaum scissor was used to bluntly separate the subcutaneous tissue until the flexor retinaculum was visualized. A self- retaining retractor was placed. A new 15 blade scalpel was then used to slowly open the flexor retinaculum, first extending distally until fat was identified. I then focused on the proximal opening of the carpal tunnel. Under direct visualization and using Metzenbaum scissors, the flexor retinaculum was opened proximally until the carpal tunnel was felt to be fully decompressed. The extent of the opening was checked again to confirm that the nerve was fully decompressed. The surgical site was copiously irrigated. Hemostasis was verified with the bipolar. The skin was closed with 3-0 nylon vertical mattress sutures which was then dressed with fluff gauze, Kerlix, and an Kenton bandage. The arm was placed into a sling. The patient was awakened from anesthesia and transferred to the PACU without incident. Billing code: 51666 Estimated Blood Loss 5 Drains No Packing No Pathology None sent Complications None Condition Stable Disposition PACU [facility] Billing Surgery - Charge Forward: Surgery Billing
[2025-04-20 10:45] VITALS: BP 124/86; PULSE 63
[2025-04-20 11:15] VITALS: BP 137/81; PULSE 65
== END 2025-04-20 11:38 | disposition home or self-care (01) ==
PROVIDERS: PCP Internal Medicine; Visit Provider Neurological Surgery
PROC: (CPT 64721; principal; 2025-04-20 10:00)
DX: G56.02 Carpal tunnel syndrome, left upper limb (principal); I10 Essential (primary) hypertension; F41.9 Anxiety disorder, unspecified; L93.0 Discoid lupus erythematosus; Z90.49 Acquired absence of other specified parts of digestive tract; Z98.51 Tubal ligation status; Z95.0 Presence of cardiac pacemaker
CPT/HCPCS: 64721; J0690; A4565; A9270; J1100; J1885; J2003; J2250; J2405; J2704; J7120

== ENCOUNTER 2025-05-14 13:22 | Emergency (ER) | payer OTHER, SELFPAY ==
[2025-05-14 13:33] VITALS: BP 127/93; PULSE 71; RESP 16; TEMP 36.4; O2SAT 99
--- NOTE | 2025-05-14 15:24 | ED_ITS ---
HPI - Back Pain/Injury General Chief Complaint: Back Pain/Injury Stated Complaint: Back Pain Time Seen by Provider: 05/14/25 13:38 Source: patient and RN notes reviewed Mode of arrival: ambulatory Limitations: no limitations History of Present Illness HPI Narrative: Patient presents today complaining of a 2 day history of bilateral low back pain. Denies radiation of the pain. Patient reports she does have some numbness to her bilateral feet, but this is baseline for her. Denies numbness or tingling in the genitalia. Denies loss of bowel or bladder control. She currently rates her pain 9/10 and has tried ibuprofen and topical lidocaine patch. Ibuprofen did not provide improvement, but the lidocaine patch provided some mild relief. Denies injury, trauma, recent heavy lifting, jumping, twisting. 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 Related Data Home Medications ?Medication ?Instructions ?Recorded ?Confirmed ?Last Taken ?Type duloxetine 60 mg capsule,delayed 60 mg PO DAILY 01/30/20 05/14/25 04/19/25 History release hydrochlorothiazide 25 mg tablet 25 mg PO DAILY 02/18/20 05/14/25 04/19/25 History metoprolol tartrate 50 mg tablet 50 mg PO Q12H 01/17/25 05/14/25 04/19/25 History bupropion HCl 100 mg tablet 100 mg PO BID 02/14/25 05/14/25 04/19/25 History Allergies Allergy/AdvReac Type Severity Reaction Status Date / Time Penicillins Allergy Intermediate Hives Verified 05/14/25 13:32 escitalopram (From Lexapro) Allergy Hives Verified 05/14/25 13:32 [facility] Past Medical History Medical History Colon cancer screening Lupus [place] Nausea RUQ pain Vasovagal syncope Anxiety Hypertension Surgical History Surgical History History of tubal ligation S/P placement of cardiac pacemaker History of cholecystectomy Social History Social History Smoking status: Never smoker Alcohol intake: never Substance use: never Substance use type: does not use Do You Feel Safe in your Home?: Yes Lack of Transportation: No Lack of Food: Never True Current Housing: I Have Housing Concerned About Future Housing: YES Difficulty Paying Gas/Electric Bills: No Difficulty Paying for Meds: No Currently Unemployed: No Education: High School Diploma/GED Difficulty w/ Childcare or Family Care: No Living arrangements: with family Gender identity (if verbalized by the patient): Female Spiritual care concerns: No Comments At time of signature, I have reviewed and agree with nursing past medical, surg ical, social and family history unless otherwise noted. Please see nursing chart for further information. There is no relevant family history pertinent to the presenting complaint Exam Narrative: GENERAL: Well-appearing, well-nourished, and in mild pain distress. HEAD: Normocephalic, atraumatic. EYES: EOMI. No redness or drainage. Conjunctivae normal. ENT: Mucous membranes pink and moist. NECK: Normal AROM. CHEST: No respiratory distress. MUSCULOSKELETAL: No bony tenderness of the spine. Bilateral lower lumbar paraspinal muscle tenderness that extends to the bilateral buttocks. Palpable muscle spasms in the bilateral lower lumbar musculature. Distal sensation somewhat diminished in bilateral feet-baseline for pt. Saddle sensation intact. Capillary refill normal. Pedal pulses normal. 2+ patellar reflexes bilaterally. 5/5 strength in BLE. EXTREMITIES: Normal range of motion. No edema. SKIN: Warm, dry, no rash. Capillary refill normal. Normal skin turgor. NEURO: No focal deficits. Alert and oriented x3. Gait steady. PSYCH: Normal affect. No signs of depression or anxiety. Course Course Level of Care: Express Care Visit Vital Signs Vital signs: Vital Signs Temperature 97.5 F L 05/14/25 13:33 Pulse Rate 71 05/14/25 13:33 Respiratory Rate 16 05/14/25 13:33 Blood Pressure 127/93 H 05/14/25 13:33 Pulse Oximetry 99 05/14/25 13:33 Temperature 97.5 F L 05/14/25 13:33 Pulse Rate 71 05/14/25 13:33 Respiratory Rate 16 05/14/25 13:33 Blood Pressure 127/93 H 05/14/25 13:33 Pulse Oximetry 99 05/14/25 13:33 Reviewed MDM - Back Pain/Injury MDM Narrative Medical decision making narrative: 50-year-old female patient presents today complaining of bilateral low back pain x2 days without injury or trauma. Diminished sensation in the bilateral feet, but baseline for patient. Strength normal. No saddle anesthesia. Patient will be treated with some Flexeril to help some muscle spasms in the bilateral lower lumbar paraspinal muscles. A prescription for a Medrol Dosepak is also been sent to the pharmacy, however, since she is 3 weeks postop left carpal tunnel surgery, she is to check with her surgeon before starting this medication. Vital signs stable. Patient agrees with plan. Anticipatory guidance given. Differential Diagnosis Differential diagnosis: Likely lumbar radiculopathy, sciatica and strain of lumbar region Critical Care Time Critical Care Time Critical Care Time: No Discharge Plan Discharge Clinical Impression: Low back strain Qualifiers: Encounter type: initial encounter Qualified Code(s): S39.012A - Strain of muscle, fascia and tendon of lower back, initial encounter Patient Disposition: Home Condition: Stable Instructions: Low Back Strain (ED) Additional Instructions: Please take the Flexeril as prescribed. Do not drive within 8 hours of taking the Flexeril as it can make you drowsy. You have also been prescribed a Medrol Dosepak, which is a steroid. Please check with your neurosurgeon that you are okay take this so close to your surgery. Use a heating pad to help relax your m uscles. Do not use this over the top of a lidocaine patch. No heavy lifting, jumping, twisting while your back is still bothering you. Follow-up with your PCP in 1 week if symptoms persist. Your blood pressure was elevated above 120/80 today at Urgent Care. This puts you above the threshold for follow up. Please schedule a followup visit with your personal physician as soon as possible, for further evaluation and treatment. Even blood pressure exceeding 120/80 may indicate pre-hypertension. Patient Language: Barbadian Prescriptions: New cyclobenzaprine 10 mg tablet 10 mg PO TID PRN (Reason: muscle spasm) Qty: 20 0RF methylprednisolone [Medrol (Kobe)] 4 mg tablets,dose pack See Rx Instructions .ROUTE .COMPLEX Qty: 21 0RF Rx Instructions: orally per package directions No Action metoprolol tartrate 50 mg tablet 50 mg PO Q12H bupropion HCl 100 mg tablet 100 mg PO BID duloxetine 60 mg Capsule,Delayed Release(Dr/Ec) 60 mg PO DAILY hydrochlorothiazide 25 mg tablet 25 mg PO DAILY Follow-up/Referrals: PHYSICIAN,CONCRETE SMOOTHER [Primary Care Provider] - Stand Alone Forms: Work/School Release IP Time of Disposition: 13:57
== END 2025-05-14 14:02 | disposition home or self-care (01) ==
PROVIDERS: Emergency Provider Nurse Practitioner
DX: S39.012A Strain of muscle, fascia and tendon of lower back, initial encounter (principal); X58.XXXA Exposure to other specified factors, initial encounter; I10 Essential (primary) hypertension; F41.9 Anxiety disorder, unspecified; Z95.0 Presence of cardiac pacemaker
CPT/HCPCS: 99213; G0463

== ENCOUNTER 2025-05-28 09:38 | Emergency (ER) | payer OTHER, SELFPAY ==
--- NOTE | ~2025-05-28 | XR_ITS ---
EXAMINATION: XR lumbar spine 2-3V DATE: 05/28/2025 10:22 INDICATION: Chronic low back pain TECHNIQUE: Anteroposterior and lateral views of the lumbar spine, and cone-down lateral view of the l umbosacral junction were obtained. COMPARISON: CT abdomen and pelvis dated 10/17/2014 FINDINGS: 5 degrees lumbar dextrocurvature. 2 mm retrolisthesis L1 on L2. Moderate disc height loss at L1-L2 an d L5-S1, mild disc height loss at T12-L1. Severe facet osteoarthritis at L5-S1, moderate on the right at L4-L5 and mild in the remainder of the lumbar spine. Mild bilateral hip and sacroiliac osteoarthr itis. Aortobiiliac stenting. IMPRESSION: 1. Mild lumbar dextrocurvature with mild to moderate spondylosis. Reviewed, dictated and finalized at location A.
[2025-05-28 09:47] VITALS: BP 125/89; PULSE 68; RESP 16; TEMP 36.1; O2SAT 100
--- NOTE | 2025-05-28 10:09 | ED.BACK ---
HPI - Back Pain/Injury General Chief Complaint: Back Pain/Injury Stated Complaint: BACK/L LEG PAIN/FEET NUMB Time Seen by Provider: 05/28/25 10:09 Source: patient Mode of arrival: ambulatory Limitations: no limitations History of Present Illness HPI Narrative: 50 yo F presents with low back pain for 2 to 3 days, radiating down L leg, toes tingling. Denies injury. Ambulatory with steady gait. No loss of bowel or bladder. 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 Has not taken any OTC medications to treat pain. All systems reviewed and negative except as noted above. Related Data Home Medications ?Medication ?Instructions ?Recorded ?Confirmed ?Last Taken ?Type duloxetine 60 mg capsule,delayed 60 mg PO DAILY 01/30/20 05/14/25 04/19/25 History release hydrochlorothiazide 25 mg tablet 25 mg PO DAILY 02/18/20 05/14/25 04/19/25 History metoprolol tartrate 50 mg tablet 50 mg PO Q12H 01/17/25 05/14/25 04/19/25 History bupropion HCl 100 mg tablet 100 mg PO BID 02/14/25 05/14/25 04/19/25 History Allergies Allergy/AdvReac Type Severity Reaction Status Date / Time Penicillins Allergy Intermediate Hives Verified 05/28/25 09:50 escitalopram (From Lexapro) Allergy Hives Verified 05/28/25 09:50 [facility] Past Medical History Medical History Colon cancer screening Lupus [place] Nausea RUQ pain Vasovagal syncope Anxiety Hypertension Surgical History Surgical History History of tubal ligation S/P placement of cardiac pacemaker History of cholecystectomy Social History Social History Smoking status: Never smoker Alcohol intake: never Substance use: never Substance use type: does not use Do You Feel Safe in your Home?: Yes Lack of Transportation: No Lack of Food: Never True Current Housing: I Have Housing Concerned About Future Housing: YES Difficulty Paying Gas/Electric Bills: No Difficulty Paying for Meds: No Currently Unemployed: No Education: High School Diploma/GED Difficulty w/ Childcare or Family Care: No Living arrangements: with family Gender identity (if verbalized by the patient): Female Spiritual care concerns: No Comments At time of signature, agree with nursing past medical, surgical, social and family history. There is no relevant family history pertinent to the presenting complaint. Exam Narrative: GENERAL: This is a well-nourished, well-developed patient, in no apparent distress. HEAD: normocephalic, atraumatic. EYES: PERRL. Sclera clear/white. Vision is grossly intact. EARS: External ears normal NOSE: External nose normal NECK: Neck supple, non-tender without lymphadenopathy, masses or thyromegaly. CARDIOVASCULAR: Regular rate and rhythm without murmurs, gallops, or rubs. RESPIRATORY: Clear to auscultation. Breath sounds equal bilaterally. No wheezes, rales, or rhonchi. SKIN: warm, Dry, intact with no suspicious lesions or rash, good texture and turgor. NEURO: awake, alert, and oriented to person, place and time. There were no obvious focal neurologic abnormalities. EXTREMITIES: No joint tenderness, effusion, or edema noted. BACK: Generalize lumbar muscular palpation. Pain to left SI joint. Bilateral straight leg raise reproduce pain to left back. Lower extremity strength 5/5. Neurovascularly intact. Course Course Level of Care: Express Care Visit Vital Signs Vital signs: Vital Signs Temperature 36.1 C L 05/28/25 09:47 Pulse Rate 68 05/28/25 09:47 Respiratory Rate 16 05/28/25 09:47 Blood Pressure 125/89 05/28/25 09:47 Pulse Oximetry 100 05/28/25 09:47 Temperature 36.1 C L 05/28/25 09:47 Pulse Rate 68 05/28/25 09:47 Respiratory Rate 16 05/28/25 09:47 Blood Pressure 125/89 05/28/25 09:47 Pulse Oximetry 100 05/28/25 09:47 Reviewed MDM - Back Pain/Injury MDM Narrative Medical decision making narrative: Discussed x-ray results with patient. Recommend she follow her primary care physician for treatment plan for pain, possible physical therapy referral. Will treat with prednisone, methocarbamol, recommend evin-xea-gnkdzha ibuprofen or Tylenol. Patient given sciatica stretches. No neuro Deficits at time of discharge. Differential Diagnosis Differential diagnosis: Likely lumbar radiculopathy, sciatica and strain of lumbar region Imaging Data My impression: agree with radiologist Radiologist's impression: EXAMINATION: XR lumbar spine 2-3V DATE: 05/28/2025 10:22 INDICATION: Chronic low back pain TECHNIQUE: Anteroposterior and lateral views of the lumbar spine, and cone-down lateral view of the lumbosacral junction were obtained. COMPARISON: CT abdomen and pelvis dated 10/17/2014 FINDINGS: 5 degrees lumbar dextrocurvature. 2 mm retrolisthesis L1 on L2. Moderate disc height loss at L1-L2 and L5-S1, mild disc height loss at T12-L1. Severe facet osteoarthritis at L5-S1, moderate on the right at L4-L5 and mild in the remainder of the lumbar spine. Mild bilateral hip and sacroiliac osteoarthritis. Aortobiiliac stenting. IMPRESSION: 1. Mild lumbar dextrocurvature with mild to moderate spondylosis. Discharge Plan Discharge Clinical Impression: Osteoarthritis of lumbar spine, Low back pain with left-sided sciatica Patient Disposition: Home Condition: Stable Instructions: Osteoarthritis (ED), Sciatica (ED), Lumbar Radiculopathy (ED), Lower Back Exercises (ED) Additional Instructions: Read over discharge instructions to better understand your diagnosis. Take medications as prescribed. Methocarbamol is a muscle relaxant may cause drowsiness. Do not drive while taking this medication. Do sciatica stretches found in discharge packet 3 times a week. Alternate between ice and heat. Take Tylenol or ibuprofen every 6-8 hours as needed for pain. See your primary care physician for follow-up. For any worsening of your pain, loss of bowel or bladder go to the ER. Patient Language: East Timorese Prescriptions: New prednisone 20 mg tablet 40 mg PO DAILY 5 Days Qty: 10 0RF methocarbamol 750 mg tablet 750 mg PO Q8H PRN (Reason: muscle pain/spasm) Qty: 30 0RF No Action metoprolol tartrate 50 mg tablet 50 mg PO Q12H cyclobenzaprine 10 mg tablet 10 mg PO TID PRN (Reason: muscle spasm) Qty: 20 0RF methylprednisolone [Medrol (Kobe)] 4 mg tablets,dose pack See Rx Instructions .ROUTE .COMPLEX Qty: 21 0RF Rx Instructions: orally per package directions bupropion HCl 100 mg tablet 100 mg PO BID duloxetine 60 mg Capsule,Delayed Release(Dr/Ec) 60 mg PO DAILY hydrochlorothiazide 25 mg tablet 25 mg PO DAILY Follow-up/Referrals: Rafy,MD Aravind [Primary Care Provider] - Stand Alone Forms: Work/School Release IP Time of Disposition: 10:51
[2025-05-28] MEDS: KETOROLAC (*BKC) 60 MG/2 ML VIAL IM (10:33)
== END 2025-05-28 10:55 | disposition home or self-care (01) ==
PROVIDERS: Emergency Provider Nurse Practitioner Family; PCP Internal Medicine
DX: M47.816 Spondylosis without myelopathy or radiculopathy, lumbar region (principal); M54.42 Lumbago with sciatica, left side; I10 Essential (primary) hypertension; F41.9 Anxiety disorder, unspecified
CPT/HCPCS: 72100; 96372; 99213; G0463; J1885; J7512

== ENCOUNTER 2025-05-31 13:00 | Outpatient (CLI) | payer OTHER, SELFPAY ==
--- OUTSIDE RECORDS SUMMARY | 2025-05-31 13:15 | XMS_ITS | Clinical Summary ---
Author Organization [facility] Address [address] [place] [address] Phone Care Team Providers Care Dental Aide Name Role Phone Minerva Richardson NP Primary [...] Encounters Date Type Department Care Team Description 05/26/2025 [facility], [place], Operated By [facility] [place] [address] [facility] [address] [place] [address] Provider, Abstract wants appt 05/17/2025 External Device Data STL ABSTRACTION Provider, Abstract 05/02/2025 [facility], [place], [facility]ated By [facility] [place] [address] [facility] [facility] [place] [address] Provider, Abstract new pt ppwk 04/27/2025 External Device Data STL ABSTRACTION Provider, Abstract 04/26/2025 External Device Data STL ABSTRACTION Provider, Abstract 04/26/2025 [facility] [place], [facility]ated By [facility] [place] [address] [facility] [address] [place] [address] Provider, Abstract new pt ppwk 03/29/2025 External Device Data STL ABSTRACTION Provider, Abstract 03/15/2025 External Device Data STL ABSTRACTION Provider, Abstract 03/15/2025 [facility] [place], [facility] [place] [address] [facility] [address] [place] [address] Provider, Abstract new pt ppwk 03/03/2025 External Device Data STL ABSTRACTION Provider, Abstract 03/02/2025 External Device Data STL ABSTRACTION Provider, Abstract 03/01/2025 External Device Data STL ABSTRACTION Provider, Abstract from Last 3 Months Family History Medical History Relation Name Comments Hypertension Brother 1 Prostate Cancer Brother 1 GERD Brother 2 Jose norma Migraines Brother 3 Jose Hypertension Father COPD Maternal Grandfather Abdi kaba Breast Cancer Maternal Grandmother Ellen kaba Cancer Maternal Grandmother Ellen kaba Hypertension Maternal Grandmother Ellen kaba Diabetes Mother Diandra norma Hypertension Mother Diandra norma Thyroid Disease Mother Diandra norma Hypertension Paternal Grandmother Relation Name Status Comments Brother 1 Brother 2 Jose norma Alive Brother 3 Jose Alive Father Maternal Grandfather Abdi kaba Alive Maternal Grandmother Ellen kaba Mother Diandra norma Paternal Grandmother Social History Tobacco Use Types Packs/Day Years Used Date Smoking Tobacco: Former Cigarettes 0.5 5 Q uit: 2011 Smokeless Tobacco: Never Tobacco Cessation:Counseling Given: Not [...] Comments Blood Pressure 107/78 11/21/2021 10:43 AM MEDICAL CODING SPECIALIST Pulse 86 08/29/2021 2:41 PM MEDICAL CODING SPECIALIST Temperature 36.8 C (98.2 F) 11/21/2021 10:43 AM MEDICAL CODING SPECIALIST Respiratory Rate 16 07/09/2021 4:08 PM CDT Oxygen Saturation 95% 07/09/2021 4:08 PM CDT Inhaled Oxygen Concentration - - Weight 98.9 kg (218 lb) 11/21/2021 10:43 AM MEDICAL CODING SPECIALIST Height 182.9 cm (6') 11/21/2021 10:43 AM MEDICAL CODING SPECIALIST Body Mass Index 29.57 11/21/2021 10:43 AM MEDICAL CODING SPECIALIST Plan of Treatment Upcoming Encounters Date Type Department Care Team (Late st Contact Info) Description 06/08/2025 11:30 AM CDT Office Visit [facility] - [facility] [address] [address] Edis Veronica MD [address] [address] [address] -x0 (Work) Health Maintenance Due Date Last [...] (1 of 2) 2024 INFLUENZA VACCINE (#1) 2025 2, 08/17/2019, 08/16/2019 Medical Devices Implanted Type Area Medical Records Coordinator Device Identifier Shelf Expiration Date Model / Serial / Lot Triad Cc Allograft Implanted:Qt y: 1 on 07/09/2021 by Edis Veronica MD at [facility] Bone N/A: Spine Cervical Anterior [employer] 11/08/2025 [id number] / [id number] / Hemostatic Surgiflo 8ml W/ Thrombin 2994 - Old - [id number] Implanted:Qt y: 1 on 07/09/2021 by Edis Veronica MD at [facility] Hemostatic N/A: Spine Cervical Anterior J[employer] [id number] 11/12/2022 [id number] / / [id number] Acp 1.6v, 42mm, 2 Level Plate Implanted:Qt y: 1 on 07/09/2021 by Edis Veronica MD at [facility] Plate N/A: Spine Cervical Anterior N[employer] INC [id number] / LOAD 2 9 / STERILIZED 06-29-21 Description:All Nuvasive cer vical hardware was processed on requisition, [id number]. Acp Screw, 3.5 X 15 Mm Self Drilling Jailyn Implanted:Qt y: 6 on 07/09/2021 by Edis Veronica MD at [facility] Screw N/A: Spine Cervical Anterior [employer] INC [id number] / LOAD 2 9 / STERILIZED 06-29-21 Allograft Triad Cc Cerv [id number] - [id number] Implanted:Qt y: 1 on 07/09/2021 by Edis Veronica MD at [facility] Tissue N/A: Spine Cervical Anterior [employer] INC 01/28/2026 [id number] / [id number] / Pacemaker Insurance BLUE ACCESS/TRUE BLUE PPO RX [employer] Commercial RX OPT[employer] RX Member Subscriber Plan / Payer (Ef fective 2025-Present) Name:Remedios Lipscomb Relation to Subscriber:Self Name:Remedios Lipscomb Subscriber ID:Not on file Payer ID:Not on file Group ID:[id number] Type:RX Commercial Address: [address] Dental Aide Relationship Specialty Start Date End Date Minerva Richardson NP PCP - General NURSE PRACTITIONER 12/27/20
--- OUTSIDE RECORDS SUMMARY | 2025-05-31 13:15 | XMS_ITS | Clinical Summary ---
Author Organization [facility] Address [address] [place] [address] Care Team Providers Care Boom Crane Operator Name Role Phone Venkatesh Carbone MD Unavailable [phone] Lupe Grey NP Primary Care Provider [phone] Allergies Active Allergy Reactions Criticality Noted Date [...] not swallow. 1 each 11 05/31/20 24 Active albuterol 2.5 mg /3 mL (0.083 [...] on file Legal Sex Female 10:14 AM RISK LEAD Gender Identity Not on file Sexual Orientation [...] (1 of 2) 2024 Influenza Vaccine (#1) 2025 , 08/23/2022, 08/17/2019, Additional history exists Medical Devices Implanted Type Area System Support Technician Device Identifier Shelf Expiration Date Model / Serial / Lot [employer] Cristóbal Stent Venous Wall [id number] - [id number] Implanted:Qty: 1 on 08/21/2023 by Finn Johnson MD at [facility] [employer]ELO [facility] 07/29/2024 [id number] / / [id number] [employer] Cristóbal Stent Venous Wall [id number] - [id number] Implanted:Qty: 1 on 08/21/2023 by Finn Johnson MD at [facility] Scientific [facility] 10/22/2024 [id number] / / [id number] [place] [address] [employer] [place] [employer] [place] [facility] Advance Directives For more information, please contact: [phone] * Full Code (Latest Code Status on File) Date Activated Date Inactivated Comments 08/21/2023 2:40 PM 08/21/2023 8:52 PM * Full Code Date Activated Date Inactivated Comments 08/17/2019 9:45 AM 08/17/2019 2:34 PM Care Teams Boom Crane Operator Relationship Specialty [place] [address] [address] PCP - General Family Medicine 03/23/24 [place] [address] [address] Consulting Physician Cardiology 08/17/19
--- OUTSIDE RECORDS SUMMARY | 2025-05-31 13:16 | XMS_ITS | Clinical Summary ---
Author Organization [facility] Address [address] [place] [address] Care Team Providers Care Plastic Finisher Name Role Phone Laverne Oviedo MD Primary [...] patient's age to complete this topic Insurance [facility] Care Teams Plastic Finisher Relationship Specialty Start Date End Date Laverne Oviedo MD [address] [place] [address] PCP - General OBGYN 02/08/20
--- OUTSIDE RECORDS SUMMARY | 2025-05-31 13:16 | XMS_ITS | Clinical Summary ---
Author Organization [facility] [employer] [employer] Address [address] [place] [address] Care Team Providers Care Dry Wall Installations Mechanic Name Role Phone Hayley Fonseca APRN-NATHANAEL Primary Care Provider [phone] Source Comments [facility] [employer],non-owned Affiliates and Associated Physician Practices is amultiple site organization consisting of ambulatory clinics and hospital sitesin [place], [place], [place] and [place]. This disclosure is being madepursuant to the Care Everywhere program and may not contain all information available regarding this patient. Last updated 18.[facility] [employer] Allergies Active Allergy Reactions Criticality Noted Date [...] HDLc 59, TG 92 Rheumatoid arthritis 02/15/2021 [facility] current use of anticoagulant therapy 1 10/30/2018 Supraventricular tachycardia 07/30/2019 Sleep apnea 10/10/2017 Sick sinus syndrome 01/27/2014 Essential (primary) hypertension 02/25/2008 Presence of cardiac pacemaker 10/22/2006 Resolved Problems Problem Noted Date Diagnosed Date Resolved Date Pre-op testing 07/23/2022 07/23/2022 Booth's neuroma of right foot 01/07/2020 07/23/2022 Encounters Date Type Department Care Team Description 05/05/2025 Orders Only [facility] - [facility] [address] [place] [address] Estrella Quintanilla MD DAVILA (nonalcoholic steatohepatitis) from Last 3 Months Social History Tobacco [...] (1 - season) 2024 DEPRESSION SCREENING 10/13/2024 INFLUENZA VACCINE [...] - 26 mg/dL 07/23/2022 1:51 PM CDT [facility] Creatinine 0.98(H) 0.56 - 0.96 mg/dL 07/23/2022 1:51 PM CDT [facility] Sodium 137 136 - 145 mmol/L 07/23/2022 1:51 [facility] Potassium 3.9 3.5 - [...] >=90 mL/min/1.7 3 m2 07/23/2022 1:51 PM [facility] Blood BLOOD SPECIMEN / Unknown Venipuncture / Unknown 07/23/2022 1:16 PM CDT 07/23/2022 1:23 PM T us Mike Oh MD LAB - CHEMISTRY ORDERABLES Final Result [facility] [address] [place] [address], [facility] [phone] from Last 3 Months or Most Recently Relevant to Health Maintenance Care Teams Dry Wall Installations Mechanic Relationship Specialty Start Date End Date Hayley Fonseca APRN-CNP [address] [phone] PCP - General 12/18/21
--- OUTSIDE RECORDS SUMMARY | 2025-05-31 13:16 | XMS_ITS | Patient Health Record ---
Author Organization [facility] [employer] Address [address] [facility] [address] [place] [address] Care Team Providers Care Cereal Maker Name Role Phone Dejon Woody Unavailable [phone] Reason For Referral No Information Plan Of Treatment No Information Insurance Providers Payer Name Payer Address Payer Phone Subscriber Number Group Number Insured Name Patient Relationship to Insured Coverage Start Date Coverage End Date [facility] [address] [place] [address] [id number] TERRI LOZANO Self - patient is the insured
[2025-05-31 13:58] LABS: Anion Gap 8 mmol/L (4-12); Blood Urea Nitrogen 20 mg/dL (7-17); Calcium 9.1 mg/dL (8.4-10.2); Carbon Dioxide 26 mmol/L (22-30); Chloride 105 mmol/L (98-107); Estimated Glomerular Filt Rate 58; Glucose 107 mg/dL (65-110); Potassium 3.3 mmol/L (3.4-5.0); Sodium 139 mmol/L (137-145)
== END 2025-05-31 13:01 | disposition home or self-care (01) ==
LOC: ANHSURGERY 13:04
PROVIDERS: Anesthesiology; PCP Internal Medicine; Visit Provider Neurological Surgery
DX: Z79.899 Other long term (current) drug therapy (principal)
CPT/HCPCS: 36415; 80048

== ENCOUNTER 2025-06-02 13:50 | Emergency (ER) | payer OTHER, SELFPAY ==
--- NOTE | ~2025-06-02 | XR_ITS ---
EXAMINATION: XR lumbar spine 2-3V DATE: 06/02/2025 15:48 INDICATION: Low back pain. Possible herniation TECHNIQUE: 3 images of the lumbar spine were obtained. COMPARISON: 05/28/2025 FINDINGS: Vascular stents project over the abdomen and pelvis. Lumbar vertebral body heights are within normal limits. No compression fracture in the lumbar spine. Stable degenerative change in the lumbar spine. IMPRESSION: 1. No compression fracture in the lumbar spine. 2. Stable degenerative change in the lumbar spine as compared to study from 05/28/2025. If symptoms persist or worsen, consider a short-term follow-up study or additional imaging for further assessment. Reviewed, dictated and finalized at location Q. IMPRESSION: 1. No compression fracture in the lumbar spine. 2. Stable degenerative change in the lumbar spine as compared to study from 05/13. If symptoms persist or worsen, consider a short-term follow-up study or additio nal imaging for further assessment.
[2025-06-02 13:53] VITALS: BP 150/90; PULSE 70; RESP 16; TEMP 37; O2SAT 100
--- OUTSIDE RECORDS SUMMARY | 2025-06-02 14:00 | XMS_ITS | Clinical Summary ---
Author Organization [facility] Address [address] [place] [address] Care Team Providers Care Trauma Manager Name Role Phone Venkatesh Carbone MD Unavailable [phone] Lupe Grey NP Primary Care Provider [phone] Allergies Active Allergy Reactions Criticality Noted Date [...] on file Legal Sex Female 10:14 AM TEARER Gender Identity Not on file Sexual Orientation [...] history exists Medical Devices Implanted Type Area Press Feeder Device Identifier Shelf Expiration Date Model / Serial / Lot [employer] Cristóbal Stent Venous Wall [id number] - [id number] Implanted:Qty: 1 on 08/21/2023 by Finn Johnson MD at [facility] [employer] [facility] 07/29/2024 [id number] / / [id number] [employer] Cristóbal Stent Venous Wall [id number] - [id number] Implanted:Qty: 1 on 08/21/2023 by Finn Johnson MD at [facility] Scientific [facility] 10/22/2024 [id number] / / [id number] [place] [address] [employer] [employer] [place] [facility] Advance Directives For more information, please contact: [phone] * Full Code (Latest Code Status on File) Date Activated Date Inactivated Comments 08/21/2023 2:40 PM 08/21/2023 8:52 PM * Full Code Date Activated Date Inactivated Comments 08/17/2019 9:45 AM 08/17/2019 2:34 PM Care Teams Trauma Manager Relationship Specialty [place] [address] [address] PCP - General Family Medicine 03/23/24 [place] [address] [address] Consulting Physician Cardiology 08/17/19
--- OUTSIDE RECORDS SUMMARY | 2025-06-02 14:00 | XMS_ITS | Patient Health Record ---
Author Organization [facility] Address [address] [facility] [address] [place] [address] Care Team Providers Care Sales Service Assistant Name Role Phone Dejon Woody Unavailable [phone] Reason For Referral No Information Plan Of Treatment No Information Insurance Providers Payer Name Payer Address Payer Phone Subscriber Number Group Number Insured Name Patient Relationship to Insured Coverage Start Date Coverage End Date [employer] [facility] e-DNU [address] [place] [address] [id number] TERRI LOZANO Self - patient is the insured
--- OUTSIDE RECORDS SUMMARY | 2025-06-02 14:00 | XMS_ITS | Clinical Summary ---
Author Organization [facility] Address [address] [place] [address] Phone Care Team Providers Care Plastic Jig And Fixture Builder Name Role Phone Minerva Richardson NP Primary [...] Date Type Department Care Team Description 05/26/2025 [facility] - [facility] [place] [address] [facility] [facility] [place] [address] Provider, Abstract wants appt 05/17/2025 External Device Data STL ABSTRACTION Provider, Abstract 05/02/2025 [facility] [place] [address] [place] [address] Provider, Abstract new pt ppwk 04/27/2025 External Device Data STL ABSTRACTION Provider, Abstract 04/26/2025 External Device Data STL ABSTRACTION Provider, Abstract 04/26/2025 [facility] - [facility] [place] [address] [facility] [place] [address] Provider, Abstract new pt ppwk 03/29/2025 External Device Data STL ABSTRACTION Provider, Abstract 03/15/2025 External Device Data STL ABSTRACTION Provider, Abstract 03/15/2025 [facility] - [facility] [place] [address] [facility] [place] [address] Provider, Abstract new pt ppwk 03/03/2025 External [...] Brother 3 Jose Alive Father Maternal Grandfather Abdiren kaba Alive Maternal Grandmother Ellen kaba Mother Diandra norma Paternal Grandmother Social History Tobacco Use Types Packs/Day Years Used Date Smoking Tobacco: Former Cigarettes 0.5 5 Q uit: 2010 Smokeless Tobacco: Never Tobacco Cessation:Counseling Given: Not [...] Comments Blood Pressure 107/78 11/21/2021 10:43 AM GENERAL MAINTENANCE MECHANIC Pulse 86 08/29/2021 2:41 PM GENERAL MAINTENANCE MECHANIC Temperature 36.8 C (98.2 F) 11/21/2021 10:43 AM GENERAL MAINTENANCE MECHANIC Respiratory Rate 16 07/09/2021 4:08 PM CDT Oxygen Saturation 95% 07/09/2021 4:08 PM CDT Inhaled Oxygen Concentration - - Weight 98.9 kg (218 lb) 11/21/2021 10:43 AM GENERAL MAINTENANCE MECHANIC Height 182.9 cm (6') 11/21/2021 10:43 AM GENERAL MAINTENANCE MECHANIC Body Mass Index 29.57 11/21/2021 10:43 AM GENERAL MAINTENANCE MECHANIC Plan of Treatment Upcoming Encounters Date Type Department Care Team (Late st Contact Info) Description 07/26/2025 11:00 AM CDT Office Visit [facility] Neurosurgery - [facility] [address] [place] [address] Edis Veronica MD [address] [facility] [address] [facility] [place] [address] -x0 (Work) Health Maintenance Due Date Last [...] 08/17/2019, 08/16/2019 Medical Devices Implanted Type Area Combatant Swimmer Device Identifier Shelf Expiration Date Model / Serial / Lot Triad Cc Allograft Implanted:Qt y: 1 on 07/09/2021 by Edis Veronica MD at [facility] Bone N/A: Spine Cervical Anterior [employer] 11/08/2025 [id number] / [id number] / Hemostatic Surgiflo 8ml W/ Thrombin 2994 - Old - [id number] Implanted:Qt y: 1 on 07/09/2021 by Edis Veronica MD at [facility] Hemostatic N/A: Spine Cervical Anterior J[employer] [id number] 11/12/2022 2994 / / [id number] Acp 1.6v, 42mm, 2 Level Plate Implanted:Qt y: 1 on 07/09/2021 by Edis Veronica MD at [facility] Plate N/A: Spine Cervical Anterior [employer] [id number] / LOAD 2 9 / STERILIZED 06-29-21 Description:All Nuvasive cer vical hardware was processed on requisition, [id number]. Acp Screw, 3.5 X 15 Mm Self Drilling Jailyn Implanted:Qt y: 6 on 07/09/2021 by Edis Veronica MD at [facility] Screw N/A: Spine Cervical Anterior [employer] [id number] / LOAD 2 9 / STERILIZED 06-29-21 Allograft Triad Cc Cerv [id number] - [id number] Implanted:Qt y: 1 on 07/09/2021 by Edis Veronica MD at [facility] Tissue N/A: Spine Cervical Anterior [employer] 01/28/2026 [id number] / [id number] / Pacemaker Insurance BLUE ACCESS/TRUE BLUE PPO RX [employer] Commercial RX [employer] RX Member Subscriber Plan / Payer (Ef fective 2025-Present) Name:Remedios Lipscomb Relation to Subscriber:Self Name:Remedios Lipscomb Subscriber ID:Not on file Payer ID:Not on file Group ID:[id number] Type:RX Commercial Address: [address] Teams Plastic Jig And Fixture Builder Relationship Specialty Start Date End Date Minerva Richardson NP PCP - General NURSE PRACTITIONER 12/27/20
--- OUTSIDE RECORDS SUMMARY | 2025-06-02 14:01 | XMS_ITS | Clinical Summary ---
Author Organization [facility] Address [address] [place] [address] Care Team Providers Care Marketing Operations Assistant Name Role Phone Laverne Oviedo MD Primary [...] patient's age to complete this topic Insurance [facility] Care Teams Marketing Operations Assistant Relationship Specialty Start Date End Date Laverne Oviedo MD [address] [place] [address] PCP - General OBGYN 02/08/20
--- OUTSIDE RECORDS SUMMARY | 2025-06-02 14:01 | XMS_ITS | Clinical Summary ---
Author Organization [facility] Address [address] [place] [address] Care Team Providers Care Primary Care Sales Representative Name Role Phone Hayley Fonseca APRN-NATHANAEL Primary Care Provider [phone] Source Comments [facility],non-owned Affiliates and Associated Physician Practices is amultiple site organization consisting of ambulatory clinics and hospital sitesin [place], [place], [place] and [place]. This disclosure is being madepursuant to the Care Everywhere program and may not contain all information available regarding this patient. Last updated 18.[facility] Allergies Active Allergy Reactions Criticality Noted Date [...] HDLc 59, TG 92 Rheumatoid arthritis 02/15/2021 skilled nursing current use of anticoagulant therapy 1 10/30/2018 Supraventricular tachycardia 07/30/2019 Sleep apnea 10/10/2017 Sick sinus syndrome 01/27/2014 Essential (primary) hypertension 02/25/2008 Presence of cardiac pacemaker 10/22/2006 Resolved Problems Problem Noted Date Diagnosed Date Resolved Date Pre-op testing 07/23/2022 07/23/2022 Booth's neuroma of right foot 01/07/2020 07/23/2022 Encounters Date Type Department Care Team Description 05/05/2025 Orders Only [facility] - [facility] [address] [facility] [place] [address] Estrella Quintanilla MD DAVILA (nonalcoholic steatohepatitis) from [...] PM CDT [facility] Creatinine 0.98(H) 0.56 - 0.96 mg/dL 07/23/2022 1:51 PM CDT [facility] Sodium 137 136 - 145 mmol/L 07/23/2022 1:51 PM [facility] Potassium 3.9 3.5 - 4.5 mmol/L 07/23/2022 1:51 PM [facility] Chloride 106 98 - 107 mmol/L 07/23/2022 1:51 PM [facility] CO2 23 22 - 29 mmol/L 07/23/2022 1:51 PM [facility] Glucose 92 70 - 115 mg/dL 07/23/2022 1:51 PM [facility] Calcium 8.5 8.4 - 10.2 mg/dL 07/23/2022 1:51 PM [facility] Protein Total 6.8 6.0 - 8.3 g/dL 07/23/2022 1:51 PM [facility] Albumin 3.7 3.4 - 5.0 g/dL 07/23/2022 1:51 PM [facility] Bilirubin Total 0.5 0.2 - 1.2 mg/dL 07/23/2022 1:51 PM [facility] Alkaline Phosphatase 91 40 - 150 U/L 07/23/2022 1:51 PM [facility] ALT 41 5 - 55 U/L 07/23/2022 1:51 PM [facility] AST 30 5 - 34 U/L 07/23/2022 1:51 PM [facility] Anion Gap 12 8 - 18 07/23/2022 1:51 PM [facility] BUN/Creatinine Ratio 11 7 - 23 07/23/2022 1:51 PM [facility] Osmolality Calculated 283 270 - 300 mOsm/kg 07/23/2022 1:51 PM [facility] Albumin/Globulin Ratio 1.2 1.1 - 2.3 07/23/2022 1:51 PM [facility] eGFR by CKD-EPI 71(L) >=90 mL/min/1.7 3 m2 07/23/2022 1:51 PM [facility] Blood BLOOD SPECIMEN / Unknown Venipuncture / Unknown 07/23/2022 1:16 PM CDT 07/23/2022 1:23 PM T us Mike Oh MD LAB - CHEMISTRY ORDERABLES Final Result [facility] [address] [place] [address], [facility] [phone] from Last 3 Months or Most Recently Relevant to Health Maintenance Care Teams Primary Care Sales Representative Relationship Specialty Start Date End Date Hayley Fonseca APRN-CNP [address] [phone] PCP - General 12/18/21
[2025-06-02 14:34] VITALS: BP 142/98; PULSE 68; RESP 18; TEMP 36.9; O2SAT 99
--- NOTE | 2025-06-02 15:36 | ED.BACK ---
HPI - Back Pain/Injury General Chief Complaint: Back Pain/Injury Stated Complaint: back pain/ fibromyalgia Time Seen by Provider: 06/02/25 15:20 History of Present Illness HPI Narrative: this is a 50-year-old female who presents to the ED for low back pain. Patient states that for the past week, she has been having bilateral low back pain worse on the right with bilateral foot numbness. Denies saddle anesthesia, bowel/bladder incontinence. Does not recall any specific injuries. 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 Related Data Home Medications ?Medication ?Instructions ?Recorded ?Confirmed ?Last Taken ?Type duloxetine 60 mg capsule,delayed 60 mg PO DAILY 01/30/20 05/30/25 04/19/25 History release hydrochlorothiazide 25 mg tablet 25 mg PO DAILY 02/18/20 05/30/25 04/19/25 History metoprolol tartrate 50 mg tablet 50 mg PO Q12H 01/17/25 05/30/25 04/19/25 History bupropion HCl 100 mg tablet 100 mg PO BID 02/14/25 05/30/25 04/19/25 History Allergies Allergy/AdvReac Type Severity Reaction Status Date / Time Penicillins Allergy Intermediate Hives Verified 05/30/25 08:03 escitalopram (From Lexapro) Allergy Hives Verified 05/30/25 08:03 Review of Systems Review of Systems: Gen.: Denies fevers or chills Eyes: Denies eye pain or visual change ENT: Denies congestion Respiratory: Denies shortness of breath or cough CV: Denies chest pain or palpitations GI: Denies abdominal pain nausea, emesis or diarrhea denies burning, urgency, frequency or hematuria Musculoskeletal: As per HPI Neuro: Denies numbness, tingling, weakness or focal weakness Skin: Denies rash Except as documented, all other systems reviewed and negative PMF Past Medical History Medical History Colon cancer screening Lupus Bone island Nausea RUQ pain Vasovagal syncope Anxiety Hypertension Surgical History Surgical History History of tubal ligation S/P placement of cardiac pacemaker History of cholecystectomy Social History Social History Smoking packs per day: 0.5 Smoking cigarettes per day: 10.0 Years smoked: 10 Smoking pack-years: 5.00 Smoking status: Former smoker Tobacco type: cigarettes Smoking end date: 10/13/14 Alcohol intake: never Substance use: never Substance use type: does not use Do You Feel Safe in your Home?: Yes Lack of Transportation: No Lack of Food: Never True Current Housing: I Have Housing Concerned About Future Housing: YES Difficulty Paying Gas/Electric Bills: No Difficulty Paying for Meds: No Currently Unemployed: No Education: High School Diploma/GED Difficulty w/ Childcare or Family Care: No Living arrangements: with family Gender identity (if verbalized by the patient): Female Spiritual care concerns: No Exam Narrative: APPEARANCE: No acute distress, nontoxic, resting in bed EYES: EOMI HEENT: Normocephalic, atraumatic, OMM RESPIRATORY: No respiratory distress Clear to auscultation bilaterally with no rhonchi wheezing or rales. CARDIOVASCULAR: Regular rate and rhythm without murmurs rubs or gallops. ABDOMINAL: Soft, nontender, nondistended, no rebound or guarding MUSCULOSKELETAl: Moves all extremities. tenderness over the bilateral paraspinal lumbar musculature. No midline tenderness, step-offs, deformities. Diminished sensation to the bilateral feet, not within a dermatomal distribution. NEURO: Awake and alert. Following commands, speech normal, no focal deficits SKIN:: Warm, dry. No rashes lesions or abrasions PSYCHIATRIC: Normal affect/mood, Course Vital Signs Vital signs: Vital Signs Temperature 98.6 F 06/02/25 13:53 Pulse Rate 70 06/02/25 13:53 Respiratory Rate 16 06/02/25 13:53 Blood Pressure 150/90 H 06/02/25 13:53 Pulse Oximetry 100 06/02/25 13:53 Oxygen Delivery Room Air 06/02/25 13:53 Temperature 98.4 F 06/02/25 14:34 Pulse Rate 68 06/02/25 14:34 Respiratory Rate 18 06/02/25 14:34 Blood Pressure 142/98 H 06/02/25 14:34 Pulse Oximetry 99 06/02/25 14:34 Oxygen Delivery Room Air 06/02/25 13:53 MDM - Back Pain/Injury MDM Narrative Medical decision making narrative: 50-year-old female who presents to the ED for low back pain. On initial evaluation, patient was in no acute distress, afebrile, hemodynamically stable. She had bilateral paraspinal lumbar tenderness without midline tenderness, step-offs, or deformities. X-ray lumbar spine was obtained which showed no fractures. Patient was given Toradol, Flexeril, Lidoderm with significant improvement of her pain. She was able to ambulate without any significant difficulty. Suspect patient has a strained lumbar muscle causing her pain. She will get prescriptions for Flexeril and Lidoderm. She was advised follow-up with her PCP on Friday as scheduled. Patient was agreeable to plan. Given strict return precautions. Differential Diagnosis Differential diagnosis: Likely lumbar radiculopathy, strain of lumbar region and thoracic back pain Medical Records Attestation: I reviewed the patient's medical records. Imaging Data Radiologist's impression: Impressions Lumbar Spine X-Ray 06/02/25 16:08 IMPRESSION: 1. No compression fracture in the lumbar spine. 2. Stable degenerative change in the lumbar spine as compared to study from 05/28/2025. If symptoms persist or worsen, consider a short-term follow-up study or additional imaging for further assessment. Discharge Plan Discharge Clinical Impression: Strain of lumbar region Qualifiers: Encounter type: initial encounter Qualified Code(s): S39.012A - Strain of muscle, fascia and tendon of lower back, initial encounter Patient Disposition: Home Condition: Stable Instructions: Antibiotic Form, Acute Low Back Pain (ED) Additional Instructions: X-ray showed no evidence of fractures or slipped disc. Likely have a muscle strain or spasm. Here given prescriptions for Flexeril and Lidoderm, take these as prescribed. He may also take Tylenol and ibuprofen for the pain. Keep your scheduled follow-up appointment with your PCP on Friday. Return to the ED for any new or worsening symptoms. Patient Language: Yi Prescriptions: New cyclobenzaprine 10 mg tablet 10 mg PO HS PRN (Reason: muscle spasm) Qty: 30 0RF lidocaine [Lidoderm] 5 % adhesive patch,medicated 1 patch topical DAILY Qty: 15 0RF Rx Instructions: leave on most painful area for up to 12 hrs No Action metoprolol tartrate 50 mg tablet 50 mg PO Q12H cyclobenzaprine 10 mg tablet 10 mg PO TID PRN (Reason: muscle spasm) Qty: 20 0RF methylprednisolone [Medrol (Kobe)] 4 mg tablets,dose pack See Rx Instructions .ROUTE .COMPLEX Qty: 21 0RF Rx Instructions: orally per package directions methocarbamol 750 mg tablet 750 mg PO Q8H PRN (Reason: muscle pain/spasm) Qty: 30 0RF bupropion HCl 100 mg tablet 100 mg PO BID duloxetine 60 mg Capsule,Delayed Release(Dr/Ec) 60 mg PO DAILY hydrochlorothiazide 25 mg tablet 25 mg PO DAILY Follow-up/Referrals: Rafy,MD Aravind [Primary Care Provider, Unknown]
[2025-06-02] MEDS: CYCLOBENZAPRINE HCL 10 MG TABLET PO (16:00)
[2025-06-02] MEDS: LIDOCAINE 5% PATCH 1 PATCH TRANSDERM (16:00)
[2025-06-02] MEDS: KETOROLAC 30 MG/ML VIAL (*BKC) IM (16:00)
[2025-06-02 16:10] VITALS: BP 124/84; PULSE 64; RESP 16; O2SAT 98
--- OUTSIDE RECORDS SUMMARY | 2025-06-02 16:12 | XMS_ITS | Clinical Summary ---
Author Organization [facility] Address [address] [place] [address] Phone Care Team Providers Care Captain Waiter/Waitress Name Role Phone Minerva Richardson NP Primary [...] Date Type Department Care Team Description 05/26/2025 [facility] Neurosurgery - Medical [place] [facility] [address] [place] [address] Provider, Abstract wants appt 05/17/2025 External Device Data STL ABSTRACTION Provider, Abstract 05/02/2025 [facility] Neurosurgery - Medical [address] [facility] [address] [place] [address] Provider, Abstract new pt ppwk 04/27/2025 External Device Data STL ABSTRACTION Provider, Abstract 04/26/2025 External Device Data STL ABSTRACTION Provider, Abstract 04/26/2025 [facility] Neurosurgery - Medical [address] [facility] [address] [place] [address] Provider, Abstract new pt ppwk 03/29/2025 External Device Data STL ABSTRACTION Provider, Abstract 03/15/2025 External Device Data STL ABSTRACTION Provider, Abstract 03/15/2025 [facility] Neurosurgery - Medical [address] [facility] [address] [place] [address] Provider, Abstract new pt ppwk 03/03/2025 External [...] Comments Blood Pressure 107/78 11/21/2021 10:43 AM MOBILE MARKETING MANAGER Pulse 86 08/29/2021 2:41 PM MOBILE MARKETING MANAGER Temperature 36.8 C (98.2 F) 11/21/2021 10:43 AM MOBILE MARKETING MANAGER Respiratory Rate 16 07/09/2021 4:08 PM CDT Oxygen Saturation 95% 07/09/2021 4:08 PM CDT Inhaled Oxygen Concentration - - Weight 98.9 kg (218 lb) 11/21/2021 10:43 AM MOBILE MARKETING MANAGER Height 182.9 cm (6') 11/21/2021 10:43 AM MOBILE MARKETING MANAGER Body Mass Index 29.57 11/21/2021 10:43 AM MOBILE MARKETING MANAGER Plan of Treatment Upcoming Encounters Date Type Department Care Team (Late st Contact Info) Description 07/26/2025 11:00 AM CDT Office Visit [facility] Neurosurgery - [facility] [address] [place] [address] Edis Veronica MD [address] [facility] [place] [facility] [place] [place] [address] -x0 (Work) Health Maintenance Due Date Last [...] 08/17/2019, 08/16/2019 Medical Devices Implanted Type Area Window Shade Cloth Sewer Device Identifier Shelf Expiration Date Model / Serial / Lot Triad Cc Allograft Implanted:Qt y: 1 on 07/09/2021 by Edis Veronica MD at [facility] Bone N/A: Spine Cervical Anterior [employer] 11/08/2025 [id number] / [id number] / Hemostatic Surgiflo 8ml W/ Thrombin 2994 - Old - [id number] Implanted:Qt y: 1 on 07/09/2021 by Edis Veronica MD at [facility] Hemostatic N/A: Spine Cervical Anterior [employer] [id number] 11/12/2022 [id number] / / [id number] Acp 1.6v, 42mm, 2 Level Plate Implanted:Qt y: 1 on 07/09/2021 by Edis Veronica MD at [facility] Plate N/A: Spine Cervical Anterior [employer] [id number] / LOAD 2 9 / STERILIZED 06-29-21 Description:All Nuvasive cer vical hardware was processed on requisition, [id number]. Acp Screw, 3.5 X 15 Mm Self Drilling Jailyn Implanted:Qt y: 6 on 07/09/2021 by Edis Veronica MD at [facility] Screw N/A: Spine Cervical Anterior [employer] [id number] / LOAD 2 9 / STERILIZED 06-29-21 Allograft Triad Cc Cerv [id number] - [id number] Implanted:Qt y: 1 on 07/09/2021 by Edis Veronica MD at [facility] Tissue N/A: Spine Cervical Anterior [employer] 01/28/2026 [id number] / [id number] / Pacemaker Insurance BLUE ACCESS/TRUE BLUE PPO RX [employer] Commercial RX [employer] RX Member Subscriber Plan / Payer (Ef fective 2025-Present) Name:Remedios Lipscomb Relation to Subscriber:Self Name:Remedios Lipscomb Subscriber ID:Not on file Payer ID:Not on file Group ID:[id number] Type:RX Commercial Address: [address] Teams Captain Waiter/Waitress Relationship Specialty Start Date End Date Minerva Richardson NP PCP - General NURSE PRACTITIONER 12/27/20
--- OUTSIDE RECORDS SUMMARY | 2025-06-02 16:12 | XMS_ITS | Clinical Summary ---
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 Gender Identity Not on file Sexual Orientation [...] history exists Medical Devices Implanted Type Area Field Worker Device Identifier Shelf Expiration Date Model / Serial / Lot [employer] Cristóbal Stent Venous Wall [id number] - [id number] Implanted:Qty: 1 on 08/21/2023 by Finn Johnson MD at [facility] [employer] [facility] 07/29/2024 [id number] / / [id number] [employer] Cristóbal Stent Venous Wall [id number] - [id number] Implanted:Qty: 1 on 08/21/2023 by Finn Johnson MD at [facility] Scientific [facility] 10/22/2024 [id number] / / [id number] [address] [place] [address] [employer] Member Subscriber Plan / Payer (Ef fective 2019-Present) Name:Remedios Lipscomb Relation to Subscriber:Self Name:Remedios Lipscomb Payer ID:[id number] (NAIC) Type:[employer] Address: [facility] [id number] [place] [address] [place] [employer] [place] [facility] Advance Directives For more information, please contact: [phone] * Full Code (Latest Code Status on File) Date Activated Date Inactivated Comments 08/21/2023 2:40 PM 08/21/2023 8:52 PM * Full Code Date Activated Date Inactivated Comments 08/17/2019 9:45 AM 08/17/2019 2:34 PM Care Teams Straightedge Machine Operator Helper Relationship Specialty [place] [address] [address] [address] PCP - General Family Medicine 03/23/24 [place] [address] [address] Consulting Physician Cardiology 08/17/19
--- OUTSIDE RECORDS SUMMARY | 2025-06-02 16:12 | XMS_ITS | Clinical Summary ---
Author Organization [facility] Address [address] [place] [address] Care Team Providers Care Shipping And Receiving Coordinator Name Role Phone Laverne Oviedo MD Primary [...] patient's age to complete this topic Insurance [facility] Care Teams Shipping And Receiving Coordinator Relationship Specialty Start Date End Date Laverne Oviedo MD [address] [place] [address] PCP - General OBGYN 02/08/20
--- OUTSIDE RECORDS SUMMARY | 2025-06-02 16:12 | XMS_ITS | Clinical Summary ---
Author Organization [facility] Address [address] [place] [address] Care Team Providers Care Card Cleaner Name Role Phone Hayley Fonseca APRN-NATHANAEL Primary Care Provider [phone] Source Comments [facility],non-owned Affiliates and Associated Physician Practices is amultiple site organization consisting of ambulatory clinics and hospital sitesin [place], [place], [place] and [place]. This disclosure is being madepursuant to the Care Everywhere program and may not contain all information available regarding this patient. Last updated 18.[facility] Allergies Active Allergy Reactions Criticality Noted Date [...] HDLc 59, TG 92 Rheumatoid arthritis 02/15/2021 [facility] current use of anticoagulant therapy 1 10/30/2018 Supraventricular tachycardia 07/30/2019 Sleep apnea 10/10/2017 Sick sinus syndrome 01/27/2014 Essential (primary) hypertension 02/25/2008 Presence of cardiac pacemaker 10/22/2006 Resolved Problems Problem Noted Date Diagnosed Date Resolved Date Pre-op testing 07/23/2022 07/23/2022 Booth's neuroma of right foot 01/07/2020 07/23/2022 Encounters Date Type Department Care Team Description 05/05/2025 Orders Only [facility] - GI [address] [facility] [place] [address] Estrella Quintanilla MD DAVILA (nonalcoholic steatohepatitis) from [...] - 26 mg/dL 07/23/2022 1:51 PM CDT [facility] Creatinine 0.98(H) 0.56 - 0.96 mg/dL 07/23/2022 1:51 PM CDT [facility] Sodium 137 136 - 145 mmol/L 07/23/2022 1:[facility] Potassium 3.9 3.5 - 4.5 mmol/L 07/23/2022 1:51 PM [facility] Chloride 106 98 - 107 mmol/L 07/23/2022 1:51 PM [facility] CO2 23 22 - 29 mmol/L 07/23/2022 1:51 PM [facility] Glucose 92 70 - 115 mg/dL 07/23/2022 1:51 PM [facility] Calcium 8.5 8.4 - 10.2 mg/dL 07/23/2022 1:51 PM [facility] Protein Total 6.8 6.0 - 8.3 g/dL 07/23/2022 1:51 PM [facility] Albumin 3.7 3.4 - 5.0 g/dL 07/23/2022 1:51 PM [facility] Bilirubin Total 0.5 0.2 - 1.2 mg/dL 07/23/2022 1:51 PM [facility] Alkaline Phosphatase 91 40 - 150 U/L 07/23/2022 1:51 PM [facility] ALT 41 5 - 55 U/L 07/23/2022 1:51 PM [facility] AST 30 5 - 34 U/L 07/23/2022 1:51 PM [facility] Anion Gap 12 8 - 18 07/23/2022 1:51 PM [facility] BUN/Creatinine Ratio 11 7 - 23 07/23/2022 1:51 PM [facility] Osmolality Calculated 283 270 - 300 mOsm/kg 07/23/2022 1:51 PM [facility] Albumin/Globulin Ratio 1.2 1.1 - 2.3 07/23/2022 1:51 PM [facility] eGFR by CKD-EPI 71(L) >=90 mL/min/1.7 3 m2 07/23/2022 1:51 PM [facility] Blood BLOOD SPECIMEN / Unknown Venipuncture / Unknown 07/23/2022 1:16 PM CDT 07/23/2022 1:23 PM T us Mike Oh MD LAB - CHEMISTRY ORDERABLES Final Result [facility] [address] [place] [address], [facility] [phone] from Last 3 Months or Most Recently Relevant to Health Maintenance Care Teams Card Cleaner Relationship Specialty Start Date End Date Hayley Fonseca APRN-CNP [address] [phone] PCP - General 12/18/21
== END 2025-06-02 16:35 | disposition home or self-care (01) ==
PROVIDERS: Emergency Provider Student in an Organized Health Care Education/Training Program; PCP Internal Medicine
DX: S39.012A Strain of muscle, fascia and tendon of lower back, initial encounter (principal); I10 Essential (primary) hypertension; M32.9 Systemic lupus erythematosus, unspecified; F41.9 Anxiety disorder, unspecified; Z87.891 Personal history of nicotine dependence; Z90.49 Acquired absence of other specified parts of digestive tract; X58.XXXA Exposure to other specified factors, initial encounter
CPT/HCPCS: 72100; 96372; 99283; A9270; J1885

== ENCOUNTER 2025-06-08 01:34 | Day surgery (SDC) | payer OTHER, SELFPAY ==
--- OUTSIDE RECORDS SUMMARY | 2025-05-09 18:59 | XMS_ITS | Continuity of Care Document ---
Author Organization [facility] Address [address] [place] [id number] Phone Care Team Providers Care Rehabilitation Team Lead Name Role Phone Alex FITZGERALD, LIZBETH, Finn BRADY Unavailable Unava ilable Alex FITZGERALD FACC, Finn BRADY Unavailable Unava ilable Procedures Procedure Date ICM DEVICE INTERROGAT REMOTE PM/ICD REMOTE TECH SERV PM DEVICE INTERROGATE REMOTE ICM DEVICE INTERROGAT REMOTE Advance Directives Directive Yes / No Effective Date File Name No Information Encounters Encounter Description Practice Location Reason(s) For Visit Diagnoses Date Provider Providers Copied on Encounter [facility], [address] [place] [address], [id number] , tel: [phone] No Information 5 Alex [address]o. [address], [address] [place] [address], [id number] , [place]. tel: [phone] Referring Provider: [address] [place] [address], [id number] . tel:[phone] sulting Provider: [address] [place] [address], [id number] . tel:[phone] [facility], [address] [place] [address], [id number] , tel: [phone] [facility] Robert Essential (primary) hypertensionPresence of cardiac pacemaker [address], [address] [place] [address], [id number] , . tel: [phone] Referring Provider: Finn Arzola, [id number] [place] [address] [place] [address], [id number] . tel:[phone] sulting Provider: Finn Arzola, [id number] [place] [address] [place] [address], [id number] . tel:[phone] [facility] , [address] [place] [address], [address] [place] [address] , tel: [phone] [facility] Essential (primary) hypertensionPresence of cardiac pacemaker [id number] [place] [address], [address] [place] [address], [id number] , . tel: [phone] Referring Provider: Finn Arzola, [address] [place] [address] [place] [address], [id number] . tel:[phone] sulting Provider: Finn Arzola, [address] [place] [address] [place] [address], [id number] . tel:[phone] [facility] , [address] [place] [address], [id number] , tel: [phone] [facility] Essential (primary) hypertensionPresence of cardiac pacemaker [id number] [place] [address], [address] [place] [address], [id number] , . tel: [phone] Referring Provider: Finn Arzola, [address] [place] [address] [place] [address], [id number] . [phone] sulting Provider: Finn Arzola, [id number] [place] [address] Rd [address] [place] [address], [id number] . tel:[phone] Family History Family Member Type Diagnosis Age At Onset No Information Payers Payer name Insurance type Covered alliance party ID Authormegana senthil(s) [facility] [id number] Social History Type Description Quantity Date Captured [...]
[2025-05-30 08:07] VITALS: BMI 26.4
--- NOTE | 2025-05-30 08:50 | PC.NURSE ---
Addendum entered by Aroldo Sneed RN 06/01/25 12:46: I called patient and confirmed surgery date to be 06-08-2025. Original Note: Report to the Outpatient Waiting Room, entrance under the green pavilion located off [facility], at time _0600 on date _05/30/25 . Planned Procedure Time: __729 .? Time changes happen often and if your time is changed the preop area will call you the afternoon before. - You and your visitor will be asked to self-screen and do not enter if you have any COVID symptoms. Please call surgeon if you need to reschedule. - A mask is optional within the hospital at this time. Patients may have clear liquids (water, carbonated beverages, clear teas, apple juice) until 3 hours prior to surgery with a maximum of 20 ounces. - No food from midnight until time of surgery and no smoking, or chewing tobacco (or any form of nicotine). No chewing gum, candy or mints. - Infants may have breast milk until 4 hours before surgery, formula 6 hours prior to surgery. - Children will be allowed to drink immediately following surgery.? If applicable, please bring a bottle or sippy cup to assist with drinking. Juice, water, soda, and popsicles are readily available.? For infants on formula, please bring formula the day of surgery.? Pacifiers are allowed. Take only the following medications with a SIP of water on the morning of surgery: __Bupropion, duloxetine, steroid, metoprolol DO NOT STOP ANY OF YOUR OTHER PRESCRIPTION MEDICATIONS PRIOR TO SURGERY EXCEPT THE FOLLOWING Hold all vitamins and supplements for 3 days per anesthesiologist. Medications to discontinue per physician ____No NSAIDS 7 days prior Please no make-up, nail kyrgyz, hairspray, perfume, deodorant, or body powder the day of surgery.? No jewelry (including any body piercings) or valuables the day of surgery, leave them at home.? Please take a shower or bath the night before, or the morning of, surgery with an antibacterial soap.? Wear comfortable, loose fitting clothing.? Children are encouraged to wear pajamas. - Jewelry must be removed prior to entering the operating room.? Rings and piercings that are not removed may be cut off. - The hospital will not accept responsibility for valuables.? - Please leave all valuables, including medications, at home the day of surgery. If you are going home after surgery, a licensed solo truck driver must drive you home.? - NO public transportation without another adult if you receive anesthesia. - We recommend that an adult stay with you for 24 hours following discharge. - We also recommend that you do not drive, make important decision, drink alcoholic beverages, or take any drugs that were not prescribed by your health care provider for at least 24 hours after your discharge time. For Pediatric surgeries, we recommend two adults accompany the child home. Follow any additional instructions given to you from your surgeon. Telephone instructions given to __Remedios M and asked if any additional questions and then verbalized understanding. Patient advised to call surgeon office or pre surgery nurse liaison [phone] if any additional questions.
--- OUTSIDE RECORDS SUMMARY | 2025-06-08 01:38 | XMS_ITS | Clinical Summary ---
Author Organization [facility] Address [address] [place] [address] Care Team Providers Care Mangle Catcher Name Role Phone Hayley Fonseca APRN-NATHANAEL Primary Care Provider [phone] Source Comments [facility],non-owned Affiliates and Associated Physician Practices is amultiple site organization consisting of ambulatory clinics and hospital sitesin [place], [place], [place] and [place]. This disclosure is being madepursuant to the Care Everywhere program and may not contain all information available regarding this patient. Last updated 18.[facility] Allergies Active Allergy Reactions Criticality Noted Date [...] HDLc 59, TG 92 Rheumatoid arthritis 02/15/2021 [facility] current use of anticoagulant therapy 1 10/30/2018 Supraventricular tachycardia 07/30/2019 Sleep apnea 10/10/2017 Sick sinus syndrome 01/27/2014 Essential (primary) hypertension 02/25/2008 Presence of cardiac pacemaker 10/22/2006 Resolved Problems Problem Noted Date Diagnosed Date Resolved Date Pre-op testing 07/23/2022 07/23/2022 Booth's neuroma of right foot 01/07/2020 07/23/2022 Encounters Date Type Department Care Team Description 05/05/2025 Orders Only [facility] - GI [address] [facility] [place] [address] Estrella Quintanilla MD DAVILA (nonalcoholic steatohepatitis) from [...] - 26 mg/dL 07/23/2022 1:51 PM CDT [facility] Creatinine 0.98(H) 0.56 - 0.96 mg/dL 07/23/2022 1:51 PM CDT [facility] Sodium 137 136 - 145 mmol/L 07/23/2022 1:[facility] Potassium 3.9 3.5 - 4.5 mmol/L 07/23/2022 1:51 PM [facility] Chloride 106 98 - 107 mmol/L 07/23/2022 1:51 PM [facility] CO2 23 22 - 29 mmol/L 07/23/2022 1:51 PM [facility] Glucose 92 70 - 115 mg/dL 07/23/2022 1:51 PM [facility] Calcium 8.5 8.4 - 10.2 mg/dL 07/23/2022 1:51 PM [facility] Protein Total 6.8 6.0 - 8.3 g/dL 07/23/2022 1:51 PM [facility] Albumin 3.7 3.4 - 5.0 g/dL 07/23/2022 1:51 PM [facility] Bilirubin Total 0.5 0.2 - 1.2 mg/dL 07/23/2022 1:51 PM [facility] Alkaline Phosphatase 91 40 - 150 U/L 07/23/2022 1:51 PM [facility] ALT 41 5 - 55 U/L 07/23/2022 1:51 PM [facility] AST 30 5 - 34 U/L 07/23/2022 1:51 PM [facility] Anion Gap 12 8 - 18 07/23/2022 1:51 PM [facility] BUN/Creatinine Ratio 11 7 - 23 07/23/2022 1:51 PM [facility] Osmolality Calculated 283 270 - 300 mOsm/kg 07/23/2022 1:51 PM [facility] Albumin/Globulin Ratio 1.2 1.1 - 2.3 07/23/2022 1:51 PM [facility] eGFR by CKD-EPI 71(L) >=90 mL/min/1.7 3 m2 07/23/2022 1:51 PM [facility] Blood BLOOD SPECIMEN / Unknown Venipuncture / Unknown 07/23/2022 1:16 PM CDT 07/23/2022 1:23 PM T us Mike Oh MD LAB - CHEMISTRY ORDERABLES Final Result [facility] [address] [place] [address], [facility] [phone] from Last 3 Months or Most Recently Relevant to Health Maintenance Care Teams Mangle Catcher Relationship Specialty Start Date End Date Hayley Fonseca APRN-CNP [address] [phone] PCP - General 12/18/21
--- OUTSIDE RECORDS SUMMARY | 2025-06-08 01:38 | XMS_ITS | Patient Health Record ---
Author Organization [facility] Address [address] [facility] [address] [place] [address] Care Team Providers Care Medical Record Librarians Teacher Name Role Phone Dejon Woody Unavailable [phone] Reason For Referral No Information Plan Of Treatment No Information Insurance Providers Payer Name Payer Address Payer Phone Subscriber Number Group Number Insured Name Patient Relationship to Insured Coverage Start Date Coverage End Date [employer] [facility] [address] [place] [address] [id number] TERRI LOZANO Self - patient is the insured
--- OUTSIDE RECORDS SUMMARY | 2025-06-08 01:38 | XMS_ITS | Clinical Summary ---
Author Organization [facility] Address [address] [place] [phone] Care Team Providers Care Automatic Embroidery Machine Tender Name Role Phone Venkatesh Carbone MD Unavailable Lupe Grey NP Primary Care Provider [phone] Allergies Active Allergy Reactions Criticality Noted Date [...] on file Legal Sex Female 10:14 AM ANNOUNCER Gender Identity Not on file Sexual Orientation [...] history exists Medical Devices Implanted Type Area Medical Science Liaison Device Identifier Shelf Expiration Date Model / Serial / Lot [employer] [employer] Cristóbal Stent Venous Wall [id number] - [id number] Implanted:Qty: 1 on 08/21/2023 by Finn Johnson MD at [facility] [employer] [facility] 07/29/2024 [id number] / / [id number] [place] [employer] Cristóbal Stent Venous Wall [id number] - [id number] Implanted:Qty: 1 on 08/21/2023 by Finn Johnson MD at [facility] Scientific [facility] 10/22/2024 [id number] / / [id number] [place] [address] [employer] [place] [employer] [place] [facility] Advance Directives For more information, please contact: [phone] * Full Code (Latest Code Status on File) Date Activated Date Inactivated Comments 08/21/2023 2:40 PM 08/21/2023 8:52 PM * Full Code Date Activated Date Inactivated Comments 08/17/2019 9:45 AM 08/17/2019 2:34 PM Care Teams Automatic Embroidery Machine Tender Relationship Specialty [place] [id number] [address] PCP - General Family Medicine 03/23/24 [place] [address] [address] Consulting Physician Cardiology 08/17/19
--- OUTSIDE RECORDS SUMMARY | 2025-06-08 01:38 | XMS_ITS | Clinical Summary ---
Author Organization [facility] Address [address] [place] [address] Phone Care Team Providers Care Livestock Farm Workers Name Role Phone Minerva Richardson NP Primary [...] Date Type Department Care Team Description 05/26/2025 [facility] Neurosurgery - Medical [place] [address] [facility] [address] [place] [address] Provider, Abstract wants appt 05/17/2025 External Device Data STL ABSTRACTION Provider, Abstract 05/02/2025 [facility] Neurosurgery - Medical [place] [address] [facility] [address] [place] [address] Provider, Abstract new pt ppwk 04/27/2025 External Device Data STL ABSTRACTION Provider, Abstract 04/26/2025 External Device Data STL ABSTRACTION Provider, Abstract 04/26/2025 [facility] Neurosurgery - Medical [place] [address] [facility] [address] [place] [address] Provider, Abstract new pt ppwk 03/29/2025 External Device Data ST[place] ABSTRACTION Provider, Abstract 03/15/2025 External Device Data STL ABSTRACTION Provider, Abstract 03/15/2025 [facility] Neurosurgery - Medical [place] [address] [facility] [address] [place] [address] Provider, Abstract new pt ppwk from Last 3 Months Family History Medical History Relation Name Comments Hypertension Brother 1 Prostate Cancer Brother 1 GERD Brother 2 Jose norma Migraines Brother 3 Jose Hypertension Father COPD Maternal Grandfather Abdi scott Breast Cancer Maternal Grandmother Ellen kaba Cancer [...] Comments Blood Pressure 107/78 11/21/2021 10:43 AM LOCAL [place] TRUCK 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 Pulse 86 08/29/2021 2:41 PM LOCAL [place] TRUCK DRIVER Temperature 36.8 C (98.2 F) 11/21/2021 10:43 AM LOCAL [place] TRUCK DRIVER Respiratory Rate 16 07/09/2021 4:08 PM CDT Oxygen Saturation 95% 07/09/2021 4:08 PM CDT Inhaled Oxygen Concentration - - Weight 98.9 kg (218 lb) 11/21/2021 10:43 AM LOCAL [place] TRUCK DRIVER Height 182.9 cm (6') 11/21/2021 10:43 AM LOCAL [place] TRUCK DRIVER Body Mass Index 29.57 11/21/2021 10:43 AM LOCAL [place] TRUCK DRIVER Plan of Treatment Upcoming Encounters Date Type Department Care Team (Late st Contact Info) Description 07/26/2025 11:00 AM CDT Office Visit [facility] [id number] [place] [id number] Edis Veronica MD [address] [facility] [address] [address] -[phone] (Work) Health Maintenance Due Date Last [...] 08/17/2019, 08/16/2019 Medical Devices Implanted Type Area Certified Driver Examiner Device Identifier Shelf Expiration Date Model / Serial / Lot Triad Cc Allograft Implanted:Qt y: 1 on 07/09/2021 by Edis Veronica MD at [facility] Bone N/A: Spine Cervical Anterior [employer] 11/08/2025 [id number] / [id number] / Hemostatic Surgiflo 8ml W/ Thrombin 2994 - Old - [id number] Implanted:Qt y: 1 on 07/09/2021 by Edis Veronica MD at [facility] Hemostatic N/A: Spine Cervical Anterior [employer] [id number] 11/12/2022 2994 / / [id number] Acp 1.6v, 42mm, 2 Level Plate Implanted:Qt y: 1 on 07/09/2021 by Edis Veronica MD at [facility] Plate N/A: Spine Cervical Anterior [employer] [id number] / LOAD 2 9 / STERILIZED 06-29-21 Description:All Nuvasive cer vical hardware was processed on requisition, 857056. Acp Screw, 3.5 X 15 Mm Self Drilling Jailyn Implanted:Qt y: 6 on 07/09/2021 by Edis Veronica MD at [facility] Screw N/A: Spine Cervical Anterior [employer] [id number] / LOAD 2 9 / STERILIZED 06-29-21 Allograft Triad Cc Cerv [id number] - [id number] Implanted:Qt y: 1 on 07/09/2021 by Edis Veronica MD at [facility] Tissue N/A: Spine Cervical Anterior [employer] 01/28/2026 [id number] / [id number] / Pacemaker Insurance BLUE ACCESS/TRUE BLUE PPO RX [employer] Commercial RX [employer] RX Member Subscriber Plan / Payer ( fective 2025-Present) Name:Remedios Lipscomb Relation to Subscriber:Self Name:Remedios Lipscomb Subscriber ID:Not on file Payer ID:Not on file Group ID:[id number] Type:RX Commercial Address: [address] Livestock Farm Workers Relationship Specialty Start Date End Date Minerva Richardson NP PCP - General NURSE PRACTITIONER 12/27/20
[2025-06-08 06:54] VITALS: BP 133/90; PULSE 78; RESP 16; TEMP 36.6; O2SAT 100
[2025-06-08] MEDS: LACTATED RINGERS 1,000 ML 30 ML IV CONT (07:00)
--- NOTE | 2025-06-08 07:13 | WPDHPUPDATE1 ---
History and Physical Update Update Date/Time: 06/08/25 07:13 History and Physical has been reviewed, including an updated exam of the patient. There are NO changes in the patient's condition. Risks, benefits, and alternatives have been discussed and questions answered. Patient agrees to proceed with procedure.
--- NOTE | 2025-06-08 07:13 | PM.IMHP ---
H&P: HPI History of Present Illness Date/Time: 06/08/25 07:13 Chief Complaint: Carpal tunnel syndrome Narrative: Ms. Lipscomb is a 50-year-old female with history of bilateral carpal tunnel syndrome who underwent left carpal tunnel release on April 20 who is here today for scheduled follow-up. She is clinically doing well with resolution of all of her preoperative symptoms in her left hand and arm. She has no pain at her incision site. She denies any incisional drainage or fevers. She is very happy recovery and is interested in proceeding with surgery for her right carpal tunnel as soon as possible. Review of Systems Review of Systems: All systems reviewed & are unremarkable except as noted in HPI and below PMFSH Past Medical History Medical History Colon cancer screening Lupus [place] Nausea RUQ pain Vasovagal syncope Anxiety Hypertension Surgical History Surgical History History of tubal ligation S/P placement of cardiac pacemaker History of cholecystectomy Social History Social History Smoking packs per day: 0.5 Smoking cigarettes per day: 10.0 Years smoked: 10 Smoking pack-years: 5.00 Smoking status: Never smoker Tobacco type: cigarettes Smoking end date: 10/13/14 Alcohol intake: never Substance use: never Substance use type: does not use Do You Feel Safe in your Home?: Yes Lack of Transportation: No Lack of Food: Never True Current Housing: I Have Housing Concerned About Future Housing: YES Difficulty Paying Gas/Electric Bills: No Difficulty Paying for Meds: No Currently Unemployed: No Education: High School Diploma/GED Difficulty w/ Childcare or Family Care: No Living arrangements: with family Gender identity (if verbalized by the patient): Female Spiritual care concerns: No Meds Home Medications and Allergies Home Medications ?Medication ?Instructions ?Recorded ?Confirmed ?Type duloxetine 60 mg capsule,delayed 60 mg PO DAILY 01/30/20 06/08/25 History release hydrochlorothiazide 25 mg tablet 25 mg PO DAILY 02/18/20 05/30/25 History metoprolol tartrate 50 mg tablet 50 mg PO Q12H 01/17/25 06/08/25 History bupropion HCl 100 mg tablet 100 mg PO BID 02/14/25 06/08/25 History cyclobenzaprine 10 mg tablet 10 mg PO TID PRN muscle spasm #20 05/14/25 05/30/25 Rx tabs methylprednisolone 4 mg tablets in See Rx Instructions PO .COMPLEX 05/14/25 06/08/25 Rx a dose pack (Medrol (Kobe)) #21 ea methocarbamol 750 mg tablet 750 mg PO Q8H PRN muscle 05/28/25 05/30/25 Rx pain/spasm #30 tabs cyclobenzaprine 10 mg tablet 10 mg PO HS PRN muscle spasm #30 06/02/25 Rx tabs lidocaine 5 % topical patch 1 patch topical DAILY #15 ea 06/02/25 Rx (Lidoderm) Allergies Allergy/AdvReac Type Severity Reaction Status Date / Time Penicillins Allergy Intermediate Hives Verified 06/08/25 06:51 escitalopram (From Lexapro) Allergy Hives Verified 06/08/25 06:51 Vital Signs Vital Signs - 24 hr 06/08/25 06:54 Temperature 97.8 F Pulse Rate 78 Respiratory Rate 16 Blood Pressure 133/90 Pulse Oximetry 100 Oxygen Delivery Room Air Exam Narrative: Incision healing well with sutures in place Full strength in left hand drapery sewer hand and opponens pollicis Normal sensation to light touch throughout palmar aspect of left hand Positive Tinel's and Phalen's at right carpal tunnel Decreased sensation to light touch throughout palmar aspect of right hand/fingers Assessment and Plan Assessment and plan (1) Right carpal tunnel syndrome: Code(s): G56.01 - Carpal tunnel syndrome, right upper limb Status: Acute Plan Ms. Lipscomb is a 50-year-old female with history of bilateral carpal tunnel syndrome who underwent left carpal tunnel release on April 20. She is clinically doing well with resolution of all of her preoperative left arm and hand symptoms. She has persistent symptoms on the right side. We will proceed to OR today for right carpal tunnel release
--- NOTE | 2025-06-08 07:15 | WPDANESEPPF ---
Anes - Initial Pre Proc Eval Procedure: Operation Date: 06/08/25 07:30 Proposed Procedures p Right Carpal Tunnel Release - Mary Ann North MD Date/Time: 06/08/25 07:15 Surgeon: Mary Ann North MD Pre Op Diagnosis: right carpal tunnel syndrome Patient Data Age: 50 Gender: F Height: 1.8 m Weight: 88.3 kg Last Vital Signs Temp 36.6 C 06/08/25 06:54 Pulse 78 06/08/25 06:54 Resp 16 06/08/25 06:54 BP 133/90 06/08/25 06:54 Pulse Ox 100 06/08/25 06:54 O2 Del Method Room Air 06/08/25 06:54 Allergies Allergy/AdvReac Type Severity Reaction Status Date / Time Penicillins Allergy Intermediate Hives Verified 06/08/25 06:51 escitalopram (From Lexapro) Allergy Hives Verified 06/08/25 06:51 Home Medications ?Medication ?Instructions ?Recorded ?Confirmed ?Type duloxetine 60 mg capsule,delayed 60 mg PO DAILY 01/30/20 06/08/25 History release hydrochlorothiazide 25 mg tablet 25 mg PO DAILY 02/18/20 05/30/25 History metoprolol tartrate 50 mg tablet 50 mg PO Q12H 01/17/25 06/08/25 History bupropion HCl 100 mg tablet 100 mg PO BID 02/14/25 06/08/25 History cyclobenzaprine 10 mg tablet 10 mg PO TID PRN muscle spasm #20 05/14/25 05/30/25 Rx tabs methylprednisolone 4 mg tablets in See Rx Instructions PO .COMPLEX 05/14/25 06/08/25 Rx a dose pack (Medrol (Kobe)) #21 ea methocarbamol 750 mg tablet 750 mg PO Q8H PRN muscle 05/28/25 05/30/25 Rx pain/spasm #30 tabs cyclobenzaprine 10 mg tablet 10 mg PO HS PRN muscle spasm #30 06/02/25 Rx tabs lidocaine 5 % topical patch 1 patch topical DAILY #15 ea 06/02/25 Rx (Lidoderm) Patient hx anesthesia problems: none Family hx anesthesia problems: none Results Review: All pre-operative results and documents have been reviewed as part of the pre-operative evaluation. [facility] Past Medical History Medical History Colon cancer screening Lupus [place] Nausea RUQ pain Vasovagal syncope Anxiety Hypertension Surgical History Surgical History History of tubal ligation S/P placement of cardiac pacemaker History of cholecystectomy Social History Social History Smoking packs per day: 0.5 Smoking cigarettes per day: 10.0 Years smoked: 10 Smoking pack-years: 5.00 Smoking status: Never smoker Tobacco type: cigarettes Smoking end date: 10/13/14 Alcohol intake: never Substance use: never Substance use type: does not use Do You Feel Safe in your Home?: Yes Lack of Transportation: No Lack of Food: Never True Current Housing: I Have Housing Concerned About Future Housing: YES Difficulty Paying Gas/Electric Bills: No Difficulty Paying for Meds: No Currently Unemployed: No Education: High School Diploma/GED Difficulty w/ Childcare or Family Care: No Living arrangements: with family Gender identity (if verbalized by the patient): Female Spiritual care concerns: No Anes - Eval Final PreProcedure Day of Procedure 06/08/25 07:15 Patient weight: overweight Heart: regular rate and rhythm Lungs: clear to auscultation Airway: Mallampati scale class II Neurological: alert and oriented Last oral intake: >/= 8 hours ASA classification: III Emergent: no Anesthetic plan: proceed Anesthesia type and monitoring: general GIVS and standard monitoring Results Review: All pre-operative results and documents have been reviewed as part of the pre-operative evaluation. Informed Consent: The patient's anesthetic plan and its attendant risks and benefits were discussed with the patient/family/POA. Questions were solicited and answers provided to the satisfaction of the patient/family/POA.
[2025-06-08] MEDS: ceFAZolin 2 GM in SODIUM CHLORIDE 0.9% IV 50 ML 100 ML IVPB (07:24)
[2025-06-08] MEDS: BUPivacaine HCL 0.5% 10 ML AMP INFILTRATE (07:40)
[2025-06-08 08:07] VITALS: BP 133/87; PULSE 75; RESP 14; O2SAT 100
--- NOTE | 2025-06-08 08:12 | P.OP_ITS ---
Procedure Note - Detailed Date of Procedure 06/08/25 Pre-op Diagnosis right carpal tunnel syndrome Post-op Diagnosis Same Procedure Performed Right carpal tunnel release Surgeon Mary Ann North MD Captain Waiter/Waitress Jayme Edwards [facility] [place] of Procedure The patient was brought to the operating room where anesthesia was induced. The patient remained supine on the bed with the right arm extended onto an armboard. A straight incision on the ulnar side of the thenar crease in line with the anterior webspace between the third and fourth finger was planned. The patient was unable to remove a ring on her 4th finger. We therefore planned to prep and drape her fingers out of the field. The hand and arm were prepped and draped in usual sterile fashion. Time-out was performed. The incision was injected local anesthetic. A 15 blade scalpel was used to open the incision. The bipolar was used to obtain hemostasis. A Metzenbaum scissor was used to bluntly separate the subcutaneous tissue until the flexor retinaculum was visualized. A self- retaining retractor was placed. A new 15 blade scalpel was then used to slowly open the flexor retinaculum, first extending distally until fat was identified. I then focused on the proximal opening of the carpal tunnel. Under direct vis ualization and using Metzenbaum scissors, the flexor retinaculum was opened proximally until the carpal tunnel was felt to be fully decompressed. The extent of the opening was checked again to confirm that the nerve was fully decompressed. The surgical site was copiously irrigated. Hemostasis was verified with the bipolar. The skin was closed with 3-0 nylon vertical mattress sutures which was then dressed with fluff gauze, Kerlix, and an Kenton bandage. The arm was placed into a sling. The patient was awakened from anesthesia and transferred to the PACU without incident. Billing code: [id number] Estimated Blood Loss 5 Drains No Packing No Pathology None sent Complications None Condition Stable Disposition PACU [facility] Billing Surgery - Charge Forward: Surgery Billing
[2025-06-08 08:30] VITALS: BP 126/89; PULSE 66; RESP 14; O2SAT 95
[2025-06-08 08:50] VITALS: BP 133/80; PULSE 69; RESP 14
== END 2025-06-08 09:10 | disposition home or self-care (01) ==
PROVIDERS: PCP Internal Medicine; Visit Provider Neurological Surgery
PROC: (CPT 64721; principal; 2025-06-08 07:30)
DX: G56.01 Carpal tunnel syndrome, right upper limb (principal); I10 Essential (primary) hypertension; F41.9 Anxiety disorder, unspecified; Z98.890 Other specified postprocedural states; Z98.51 Tubal ligation status; Z90.49 Acquired absence of other specified parts of digestive tract; Z95.5 Presence of coronary angioplasty implant and graft; Z79.899 Other long term (current) drug therapy; Z87.891 Personal history of nicotine dependence; Z87.39 Personal history of other diseases of the musculoskeletal system and connective tissue
CPT/HCPCS: 64721; J0690; A9270; J1100; J2003; J2250; J2405; J2704; J3010; J7120

== ENCOUNTER 2025-07-01 08:56 | Emergency (ER) | payer OTHER, SELFPAY ==
[2025-07-01 09:06] VITALS: BP 114/79; PULSE 75; RESP 16; TEMP 36.6; O2SAT 100
[2025-07-01 09:16] LABS: EDUAAPPEAR Clots; EDUABILI Negative (Negative); EDUABLOOD 3+ (Negative); EDUACOLOR1 Yellow; EDUAGLUCOSE Negative (Negative); EDUAKETONE Negative (Negative); EDUALEUKO 1+ (Negative); EDUANITRATE Positive (Negative); EDUAPH 5.5; EDUAPROTEIN 2+ (Negative); EDUASPGRAVITY 1.030; EDUAUROBILI 0.2
--- NOTE | 2025-07-01 09:20 | ED.FEMALEGU ---
HPI - Female Genitourinary General Chief complaint: Urogenital-Female Stated complaint: frequent urination/burning and lower back pain Time Seen by Provider: 07/01/25 09:16 Source: patient and RN notes reviewed Mode of arrival: ambulatory Limitations: no limitations History of Present Illness HPI Narrative: Patient presents today with a 3 history of urinary frequency, malodorous urine, dysuria, urgency. Also reports subjective fever few days ago but none today. She has taken Tylenol with some improvement. No vaginal symptoms. History of hysterectomy. Related Data Home Medications ?Medication ?Instructions ?Recorded ?Confirmed ?Last Taken ?Type duloxetine 60 mg capsule,delayed 60 mg PO DAILY 01/30/20 06/08/25 06/08/25 History release hydrochlorothiazide 25 mg tablet 25 mg PO DAILY 02/18/20 05/30/25 04/19/25 History metoprolol tartrate 50 mg tablet 50 mg PO Q12H 01/17/25 06/08/25 06/08/25 History bupropion HCl 100 mg tablet 100 mg PO BID 02/14/25 06/08/25 06/08/25 History Allergies Allergy/AdvReac Type Severity Reaction Status Date / Time Penicillins Allergy Intermediate Hives Verified 06/08/25 06:51 escitalopram (From Lexapro) Allergy Hives Verified 06/08/25 06:51 PMF Past Medical History Medical History Colon cancer screening Lupus [place] Nausea RUQ pain Vasovagal syncope Anxiety Hypertension Surgical History Surgical History History of tubal ligation S/P placement of cardiac pacemaker History of cholecystectomy Social History Social History Smoking packs per day: 0.5 Smoking cigarettes per day: 10.0 Years smoked: 10 Smoking pack-years: 5.00 Smoking status: Former smoker Tobacco type: cigarettes Smoking end date: 10/13/14 Alcohol intake: never Substance use: never Substance use type: does not use Do You Feel Safe in your Home?: Yes Lack of Transportation: No Lack of Food: Never True Current Housing: I Have Housing Concerned About Future Housing: YES Difficulty Paying Gas/Electric Bills: No Difficulty Paying for Meds: No Currently Unemployed: No Education: High School Diploma/GED Difficulty w/ Childcare or Family Care: No Living arrangements: with family Gender identity (if verbalized by the patient): Female Spiritual care concerns: No Comments At time of signature, I have reviewed and agree with nursing past medical, surgical, social and family history unless otherwise noted. Please see nursing chart for further information. There is no relevant family history pertinent to the presenting complaint Exam Narrative: GENERAL: Well-appearing, well-nourished, and in no acute distress. HEAD: Normocephalic, atraumatic. EYES: EOMI. No redness or drainage. Conjunctivae normal. ENT: Mucous membranes pink and moist. NECK: Normal AROM. CHEST: No respiratory distress. Clear to auscultation. HEART: Regular rate and rhythm. No murmur appreciated. ABDOMEN: Soft, nondistended, normal active bowel sounds. + suprapubic tenderness. -CVAT MUSCULOSKELETAL: No bony tenderness. EXTREMITIES: Normal range of motion. No edema. SKIN: Warm, dry, no rash. Capillary refill normal. Normal skin turgor. NEURO: No focal deficits. Alert and oriented x3. Gait steady. PSYCH: Normal affect. No signs of depression or anxiety. Course Course Level of Care: Express Care Visit Vital Signs Vital signs: Vital Signs Temperature 97.9 F 07/01/25 09:06 Pulse Rate 75 07/01/25 09:06 Respiratory Rate 16 07/01/25 09:06 Blood Pressure 114/79 07/01/25 09:06 Pulse Oximetry 100 07/01/25 09:06 Temperature 97.9 F 07/01/25 09:06 Pulse Rate 75 07/01/25 09:06 Respiratory Rate 16 07/01/25 09:06 Blood Pressure 114/79 07/01/25 09:06 Pulse Oximetry 100 07/01/25 09:06 Review MDM - Female Genitourinary MDM Narrative Medical decision making narrative: 50-year-old female patient presents frequency, urgency, dysuria, malodorous urine for 3 days. Tylenol has provided some improvement. Upon exam patient has some suprapubic tenderness. Urinalysis shows 2+ protein, 3+ blood, 1+ leukocytes and positive nitrates. She will be treated with cephalexin for UTI. Culture pending. Vital signs stable. Anticipatory guidance given. Differential Diagnosis Differential diagnosis: Likely urinary tract infection, vaginitis and cystitis Lab Data Attestation: I reviewed the patient's lab results. Labs: Lab Results 07/01/25 Range/Units 09:13 POC Urine Color Yellow POC Urine Clarity Clots POC Urine pH 5.5 POC Ur Specif [place] 1.030 POC Urine Protein 2+ (Negative) POC Ur Glucose (UA) Negative (Negative) POC Urine Ketones Negative (Negative) POC Urine Blood 3+ (Negative) POC Urine Nitrite Positive (Negative) POC Urine Bilirubin Negative (Negative) POC Urine Urobilinogen 0.2 POC U Leukocyte Esteras 1+ (Negative) Critical Care Time Critical Care Time Critical Care Time: No Discharge Plan Discharge Clinical Impression: UTI (urinary tract infection) Qualifiers: Urinary tract infection type: acute cystitis Hematuria presence: with hematuria Qualified Code(s): N30.01 - Acute cystitis with hematuria Patient Disposition: Home Condition: Stable Instructions: Antibiotic Form, Urinary Tract Infection in Women (ED) Additional Instructions: Your urine shows infection today. Take the Keflex as prescribed until gone. Your urine will be sent of for a culture to identify what type of bacteria is causing your infection. If the culture shows that your medication will not get rid of your infection, you will be notified and a new antibiotic will be called in for you. If your symptoms worsen to include fever, sweats, chills, nausea, vomiting, severe abdominal or back pain, please go to the ER for further evaluation. Patient Language: Indonesian Prescriptions: New cephalexin 500 mg capsule 500 mg PO Q6H 7 Days Qty: 28 0RF No Action metoprolol tartrate 50 mg tablet 50 mg PO Q12H cyclobenzaprine 10 mg tablet 10 mg PO TID PRN (Reason: muscle spasm) Qty: 20 0RF methocarbamol 750 mg tablet 750 mg PO Q8H PRN (Reason: muscle pain/spasm) Qty: 30 0RF bupropion HCl 100 mg tablet 100 mg PO BID lidocaine [Lidoderm] 5 % adhesive patch,medicated 1 patch topical DAILY Qty: 15 0RF Rx Instructions: leave on most painful area for up to 12 hrs duloxetine 60 mg Capsule,Delayed Release(Dr/Ec) 60 mg PO DAILY hydrochlorothiazide 25 mg tablet 25 mg PO DAILY Follow-up/Referrals: Rafy,MD Aravind [Primary Care Provider, Unknown] Stand Alone Forms: Work/School Release IP Time of Disposition: 09:23
== END 2025-07-01 09:25 | disposition home or self-care (01) ==
PROVIDERS: Emergency Provider Nurse Practitioner; PCP Internal Medicine
DX: N30.01 Acute cystitis with hematuria (principal); I10 Essential (primary) hypertension; F41.9 Anxiety disorder, unspecified; Z95.0 Presence of cardiac pacemaker; Z87.891 Personal history of nicotine dependence
CPT/HCPCS: 81003; 87077; 87086; 87186; 99213; G0463

== ENCOUNTER 2025-07-06 11:28 | Observation (INO) | payer OTHER, SELFPAY ==
[2025-07-06] VITALS (7 sets, daily range): BP systolic 144–162; BP diastolic 100–106; PULSE 65–102; RESP 13–19; TEMP 36.3–36.6; O2SAT 91–100
--- NOTE | ~2025-07-06 | XR_ITS ---
EXAMINATION: XR chest 1V portable 07/06/2025 14:26 INDICATION: Fever PROCEDURE: AP portable chest COMPARISON: Comparison to multiple prior studies sequentially, with oldest reviewed study dated 03/23/2021. FINDINGS: The lungs are clear. The cardiomediastinal silhouette is within normal limits. There are no pleural effusions. There is no pneumothorax suspected. Pacemaker leads are stable. IMPRESSION: 1: NO ACUTE CARDIOPULMONARY DISEASE. Reviewed, dictated and finalized at location O.
--- NOTE | ~2025-07-06 | CT_ITS ---
EXAMINATION: CT abdomen pelvis w con DATE: 07/06/2025 15:01 INDICATION: Right lower quadrant pain. CVA tenderness. TECHNIQUE: Computed tomography (CT) of the abdomen and pelvis was performed with intravenous contrast. The dose-length product was 503.37 mGy-cm. COMPARISON: 06/26/2024. FINDINGS: Lung bases unremarkable. Heart size normal. No significant pleural or pericardial effusion. There are stents in the common femoral veins. Fatty infiltration of the liver. There are calcified granulomas of the spleen. The pancreas, adrenal glands there is a 1.7 x 0.7 cm right adrenal mass, sta tistically most likely benign adenoma. Nonobstructive bowel gas pattern. There is mild thickening of the appendix measuring 12 mm. No significant surrounding inflammation is identified. There are nonobstructing bilateral renal stones. There is a possible 3 mm distal right ureteral stone, although the course of ureter is not well delineated. This calcification is seen on axial image 138. No significant hydronephrosis. Nonobstructive bowel gas pattern. There is evidence of pelvic relaxation. Uterus is surgically absent. Moderate lumbar spondylosis. Nonobstructive bowel gas pattern. IMPRESSION: 1. Possible 3 mm distal right ureteral stone in the pelvis. No significant associated hydronephrosis. 2: Mildly prominent appendix measuring 12 mm axially. No significant surrounding inflammation. 3: Nonobstructing bilateral nephrolithiasis. Reviewed, dictated and finalized at location O. IMPRESSION: 1. Possible 3 mm distal right ureteral stone in the pelvis. No significant asso ciated hydronephrosis. 2: Mildly prominent appendix measuring 12 mm axially. No significant surroundin g inflammation. 3: Nonobstructing bilateral nephrolithiasis.
--- NOTE | ~2025-07-06 | XR_ITS ---
XR fluoroscopy no charge Indication: Right retrograde pyelogram TECHNIQUE: Fluoroscopy used during right retrograde pyelogram performed by [Sajan Simpson MD] on 07/07/2025. 6 seconds of fluoroscopy with 3 fluoroscopic images captured. FINDINGS: Correlate with procedure note. IMPRESSION: Fluoroscopy used during right retrograde pyelogram. Reviewed, dictated and finalized at location O.
--- NOTE | ~2025-07-06 | US_ITS ---
EXAMINATION: US venous doppler [facility], 07/08/2025 9:49 CDT HISTORY: left leg pain COMPARISON: None Technique: Moseley-scale and color Doppler images were attempted of the lower saphenofemoral junction, common femoral vein,superficial femoral vein, proximal deep femoral vein, proximal deep femoral vein, popliteal vein and posterior tibial veins. Findings: Deep Venous System:Normal flow, augmentation and compressibility. No echogenic thrombus identified. Superficial Venous SystemNo superficial thrombophlebitis. Soft tissues: Soft tissues are unremarkable. Impression: Negative for DVT. Reviewed, dictated and finalized at location P. Impression: Negative for DVT.
--- OUTSIDE RECORDS SUMMARY | 2025-07-06 12:17 | XMS_ITS | Clinical Summary ---
Author Organization [facility] Address [address] [place] [address] Phone Care Team Providers Care School Lunch Monitor Name Role Phone Minerva Richardson NP Primary [...] Encounters Date Type Department Care Team Description 06/28/2025 External Device Data STL ABSTRACTION Provider, Abstract 05/26/2025 [facility] Neurosurgery - [facility] [place] [address] [facility] [address] [place] [address] Provider, Abstract wants appt 05/17/2025 External Device Data STL ABSTRACTION Provider, Abstract 05/02/2025 [facility] - [place] [address] [facility] [address] [place] [address] Provider, Abstract new pt ppwk 04/27/2025 External Device Data STL ABSTRACTION Provider, Abstract 04/26/2025 External Device Data STL ABSTRACTION Provider, Abstract 04/26/2025 [facility] Neurosurgery - [facility] [place] [address] [facility] [address] [place] [address] Provider, Abstract new pt ppwk from Last 3 Months Family History Medical History Relation Name Comments Hypertension Brother 1 Prostate Cancer Brother 1 GERD Brother 2 Jose norma Migraines Brother 3 Jose Hypertension Father COPD Maternal Grandfather Abdiren kaab Breast Cancer Maternal Grandmother Ellen kaba Cancer [...] Comments Blood Pressure 107/78 11/21/2021 10:43 AM FRONT OFFICE ASSISTANT Pulse 86 08/29/2021 2:41 PM FRONT OFFICE ASSISTANT Temperature 36.8 C (98.2 F) 11/21/2021 10:43 AM FRONT OFFICE ASSISTANT Respiratory Rate 16 07/09/2021 4:08 PM CDT Oxygen Saturation 95% 07/09/2021 4:08 PM CDT Inhaled Oxygen Concentration - - Weight 98.9 kg (218 lb) 11/21/2021 10:43 AM FRONT OFFICE ASSISTANT Height 182.9 cm (6') 11/21/2021 10:43 AM FRONT OFFICE ASSISTANT Body Mass Index 29.57 11/21/2021 10:43 AM FRONT OFFICE ASSISTANT Plan of Treatment Upcoming Encounters Date Type Department Care Team (Late st Contact Info) Description 07/26/2025 11:00 AM CDT Office Visit [facility] Neurosurgery - [facility] [id number] [place] [address] Edis Veronica MD [address] [facility] [address] [address] -x0 (Work) Health Maintenance Due [...] 08/17/2019, 08/16/2019 Medical Devices Implanted Type Area [employer] Device Identifier Shelf Expiration Date Model / Serial / Lot Triad Cc Allograft Implanted:Qt y: 1 on 07/09/2021 by Edis Veronica MD at [facility] Bone N/A: Spine Cervical Anterior [employer] 11/08/2025 [id number] / [id number] / Hemostatic Surgiflo 8ml W/ Thrombin 2994 - Old - [id number] Implanted:Qt y: 1 on 07/09/2021 by Edis Veronica MD at [facility] Hemostatic N/A: Spine Cervical Anterior [employer] [id number] 11/12/2022 2994 / / [id number] Acp 1.6v, 42mm, 2 Level Plate Implanted:Qt y: 1 on 07/09/2021 by Edis Veronica MD at [facility] Plate N/A: Spine Cervical Anterior [employer] [id number] / LOAD 2 9 / STERILIZED 06-29-21 Description:All Nuv[employer] cer vical hardware was processed on requisition, [id number]. Acp Screw, 3.5 X 15 Mm Self Drilling Jailyn Implanted:Qt y: 6 on 07/09/2021 by Edis Veronica MD at [facility] Screw N/A: Spine Cervical Anterior [employer] [id number] / LOAD 2 / STERILIZED 06-29-21 Allograft Triad Cc Cerv [id number] - [id number] Implanted:Qt y: 1 on 07/09/2021 by Edis Veronica MD at [facility] Tissue N/A: Spine Cervical Anterior [employer] 01/28/2026 [id number] / [id number] / Pacemaker Insurance BS BLUE ACCESS/TRUE BLUE PPO RX [employer] Commercial RX [employer] RX Member Subscriber Plan / Payer ( fective 2025-Present) Name:Ruel Remedios Relation to Subscriber:Self Name:Remedios Lipscomb Subscriber ID:Not on file Payer ID:Not on file Group ID:[id number] Type:RX Commercial Address: [address] Teams School Lunch Monitor Relationship Specialty Start Date End Date Minerva Richardson NP PCP - General NURSE PRACTITIONER 12/27/20
--- OUTSIDE RECORDS SUMMARY | 2025-07-06 12:17 | XMS_ITS | Data Portability ---
Author Organization [place] [facility], Main Office Address [address] [place] [address] Assessment Encounter Date Assessment Date Assessment LastModified by Organization Details LastModified Time 06/06/2025 06/06/2025 01/21/2025: VIT D 24.3 K 3.2, BUN/Cr/GFR 20/0.90/>60, ALT/AST 49/44 Chol 229, LDL 160 05/31/2025: K 3.3 [email or web address] Not available 06/06/2025 12:45:30 Plan of Treatment Reminders Order Date Submit Date Provider Last Modified By Organization Details Last Modified Time Details Appointments Any 15 2024 02:30P Dariusz rankin MD Not available Not available Not available Follow Up 20 2024 01:00P Dariusz Burks NP Not available Not available Not available Follow Up 15 2024 10:00A Dariusz rankin MD Not available Not available Not available Lab lipid panel, serum 2024 025 [facility] (Lab), [address] [place], [address], 06/24/2025 06:51:20 CBC w/ auto diff 2024 025 [facility] (Lab), [address] [place], [address], 06/24/2025 06:51:21 TSH, serum or plasma 2024 025 [facility] (Lab), [address] [place], [address], 06/24/2025 06:51:22 CMP, serum or plasma 2024 025 [facility] (Lab), [address] [place], [address], 06/24/2025 06:51:21 vitamin D, 25-hydrox y, total, serum 2024 025 [facility] (Lab), [address] [place], [address], 06/24/2025 06:51:23 potassium , serum or plasma 2024 025 [facility] (Lab), [address] [place], [address], 06/06/2025 15:39:53 lipid panel, serum 2024 025 [facility] (Lab), [address] [place], [address], 01/21/2025 13:12:12 CBC w/ auto diff 2024 025 [facility] (Lab), [address] [place], [address], 01/21/2025 13:07:04 TSH, serum or plasma 2024 025 [facility] (Lab), [address] [place], [address], 01/21/2025 13:40:35 CMP, serum or plasma 2024 025 [facility] (Lab), [address] [place], [address], 01/21/2025 13:12:22 vitamin D, 25-hydrox y, total, serum 2024 [email or web address] [facility] (Lab), [address] [place], [address], 02/03/2025 09:38:07 urinalysi s complete, reflex culture 2023 024 [email or web address] [facility] (Lab), [address] [place], [address], 03/08/2025 12:47:43 Referral gynecolog ist referral - Please call patient to schedule an appointme nt. Thank you. 2024 025 ESTELITA Thrasher DO, [address] [facility] [address], [place], [address], 06/07/2025 09:23:05 hepatolog ist referral - Please call patient to schedule an appointme nt. Thank you. 2024 025 ESTELITA Menon MD ([facility]), [address] [place], [address], 06/14/2025 11:06:01 pulmonolo gist referral - Please call patient to schedule an appointme nt. Thank you. 2024 025 ESTELITA Lal OBEDIENCE TRAINER, [address] [facility], [facility] [address], [place], [address], 06/14/2025 12:25:47 cardiolog ist referral - Please call patient to schedule an appointme nt. Thank you. 2024 025 [place], [address] [address] , [address], [address], 06/14/2025 11:30:08 psychiatr ist referral - Please call patient to schedule an appointme nt. Thank you. 2024 025 IRAIDA Burks OBEDIENCE TRAINER, [address] [facility], [address], [place], [address], 06/09/2025 10:18:08 pulmonolo gist referral - Please call patient to schedule an appointme nt. Thank you 2024 025 ESTELITA Lal OBEDIENCE TRAINER, [address], [place], [address], 06/14/2025 11:23:07 neurologi nayla surgeon referral - Please call patient to schedule an appointme nt. Thank you. 2024 025 IRAIDA Veronica MD, [address] [facility], [facility] [address], [place], [address], 03/24/2025 14:35:20 gynecolog ist referral - Please call patient to schedule an appointme nt. Thank you. 2024 025 keshawn Thrasher DO, [address] [facility] [address], [place], [address], 04/20/2025 11:11:37 hepatolog ist referral - Please call patient to schedule an appointme nt. Thank you. 2024 025 keshawn Menon MD ([facility]), [address] [place], [address], 04/25/2025 17:12:59 pulmonolo gist referral - Please call patient to schedule an appointme nt. Thank you. 2024 025 keshawn Lal OBEDIENCE TRAINER, [address], [place], [address], 04/25/2025 17:12:59 cardiolog ist referral - Please call patient to schedule an appointme nt. Thank you. 2024 025 [place], [address] [facility], [address], [address], 04/25/2025 17:13:00 psychiatr ist referral - Please call patient to schedule an appointme nt. Thank you. 2024 025 keshawn Burks OBEDIENCE TRAINER, [address], [place], [address], 04/20/2025 11:11:36 pulmonolo gist referral - Please call patient to schedule an appointme nt. Thank you 2024 025 [email or web address] Mariola Lal OBEDIENCE TRAINER, [address], [place], [address], 01/26/2025 17:30:35 rheumatol ogist referral - Please call patient to schedule. 2023 024 [email or web address] [facility] (Rheumatology ), [address] [facility], [place], [address], 12/16/2024 10:24:53 Procedures None recorded. Surgeries None recorded. Imaging MAMMO, screening , digital, bilateral - Please call patient to schedule. To be performed on or around 6 2024 025 [facility] Central Scheduling, [address] [place], [address], 06/08/2025 16:01:16 bone density - Please call patient to schedule. [address] ([facility]), [address] [place], [address], 06/08/2025 15:56:48 MAMMO, screening , digital, bilateral [address] ([facility]), [address] [place], [address], 01/19/2025 16:06:22 XR, cervical spine, 2 or 3 view 2024 025 [facility] ([facility]), [address] [place], [address], 01/25/2025 12:21:07 bone density - Please call patient to schedule. 2024 025 [facility] ([facility]), [address] [place], [address], 02/01/2025 15:11:20 CT, sinuses, w/o contrast [address] ([facility]), [address] [place], [address], 01/24/2025 13:48:13 Medication Orders Zepbound 2.5 mg/0.5 mL subcutane ous pen injector 2024 025 [facility]37, [address], [place], [id number], 06/06/2025 12:53:35 potassium chloride ER 20 mEq tablet,ex tended release 2024 025 [facility] #68299, [address], [place], [id number], 06/18/2025 05:01:13 meloxicam 7.5 mg tablet [address] [facility]86472, [address], [place], [id number], 06/06/2025 12:24:00 Zyrtec 10 mg tablet 2024 025 [facility], [address] [place], [id number], 06/28/2025 08:47:57 triamcino lone acetonide 0.1 % topical cream 2023 024 [address] [facility], [address], [place], [place], [id number], 01/19/2025 15:14:11 oxybutyni n chloride 5 mg tablet 2023 [facility] #63816, [address], [place], [place], [id number], 01/19/2025 15:13:47 Patient TargetsNo targets recorded. 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 Referring Physician: Lupe Grey, Internal Medicine, Encounter Date: 08/23/2024 Head Of Sales Referral for A sthma Please call patient to schedule an appointment. Thank you Referring Physician: Fernando Hillman, Internal Medicine, Encounter Date: 01/19/2025 Head Of Sales Referral for S leep apnea Please call patient to schedule an appointment. Thank you. Referring Physician: Fernando Hillman Internal Medicine, Encounter Date: 01/19/2025 Psychiatrist Referral for Mi xed anxiety and depressive disorder Please call patient to schedule an appointment. Thank you. Referring Physician: Fernando Hillman Internal Medicine, Encounter Date: 01/19/2025 Neurological Surgeon Khalif akbar for Cervical radiculopathy Please call patient to schedule an appointment. Thank you. Referring Physician: Fernando Hillman Internal Medicine, Encounter Date: 01/19/2025 Shipping Track Supervisor Referral for Me tabolic dysfunction-associated steatohepatitis Please call patient to schedule an appointment. Thank you. Referring Physician: Fernando Hillman Internal Medicine, Encounter Date: 01/19/2025 Managed Care Analyst Referral for Co ronary arteriosclerosis Please call patient to schedule an appointment. Thank you. Referring Physician: Fernando Hillman Internal Medicine, Encounter Date: 01/19/2025 Trap Operator Referral for Gy necologic examination Please call patient to schedule an appointment. Thank you. Referring Physician: Fernando Hillman Internal Medicine, Encounter Date: 01/19/2025 Head Of Sales Referral for A sthma Please call patient to schedule an appointment. Thank you Referring Physician: Fernando Hillman Internal Medicine, Encounter Date: 06/06/2025 Head Of Sales Referral for S leep apnea Please call patient to schedule an appointment. Thank you. Referring Physician: Fernando Hillman Internal Medicine, Encounter Date: 06/06/2025 Psychiatrist Referral for Mi xed anxiety and depressive disorder Please call patient to schedule an appointment. Thank you. Referring Physician: Fernando Hillman Internal Medicine, Encounter Date: 06/06/2025 Shipping Track Supervisor Referral for Me tabolic dysfunction-associated steatohepatitis Please call patient to schedule an appointment. Thank you. Referring Physician: Fernando Hillman Internal Medicine, Encounter Date: 06/06/2025 Managed Care Analyst Referral for Co ronary arteriosclerosis Please call patient to schedule an appointment. Thank you. Referring Physician: Fernando Hillman Internal Medicine, Encounter Date: 06/06/2025 Trap Operator Referral for Gy necologic examination Please call patient to schedule an appointment. Thank you. Referring Physician: Dirk Mcgregor Medicine, Encounter Date: 06/06/2025 Results Created Date Observation Date Name Description Value Unit Range Abnormal Flag Note LastModifiedBy Organization Detail LastModifiedTime 09/05/20 24 09/04/2024 raulito THORNTON observ ation record ed. [facility] [address] , [place], [address], 09/06/2024 08:04:20 12/25/19 25 12/24/2024 XR, kidne y + urete r + bladd er No observ ation record ed. [facility] Care [place] [id number] [facility] , [place], [address], 12/24/2024 16:00:58 01/07/20 25 01/06/2025 XR, chest , 2 view No observ ation record ed. [address], [place], [address], 01/12/2025 09:03:24 01/07/20 25 01/06/2025 CT, angio gram, chest , w/ contr ast No observ ation record ed. [address], [place], [address], 01/12/2025 09:10:04 01/26/20 25 01/25/2025 XR, cervi nayla spine , 2 or 3 view [facility] [address] [address] Patien t Name: REMEDIOS LIPSCOMB ion #: [id number] Sex: F : 1974 3 Dictat [...] a left chest pacema ker. Page 1 [facility] [address] [place] [address] [phone] Patien t Name: REMEDIOS LIPSCOMB ion #: [id number] Sex: F : 1974 3 Dictat ed By: Hao lynn Attend ing Physic rachel: ROSEY HERRERA Physic rachel: TENZIN HEART Exam Date: 2024 10:44 AM Exam Name: XR C SPINE 3V Admitt ing Diagno sis(es ): Electr onical ly Signed by: Hao lynn at 2024 11:18: 34 AM Page 2 [email or web address] (Imaging) [address] [place], [address], 01/25/2025 15:13:28 04/15/20 25 01/25/2025 XR, cervi nayla spine , 2 or 3 view No observ ation record ed. [facility] ([facility] Call Scheduling) [address] [place], [address], 01/25/2025 18:19:30 02/02/20 25 02/01/2025 scree perico breas t minh, bilat [facility] [address] [facility] [place] [address] Patien t Name: REMEDIOS LIPSCOMB Access ion #: [id number] Sex: F : 1974 9 Dictat ed By: Chitra Borrero Attend ing Physic rachel: TENZIN HEART Orderi ng Physic rachel: TENZIN HEART Exam Date: 2024 09:44 AM Exam Name: MG SCRN BREAST MINH BILAT Admitt ing Diagno sis(es ): PROCED URE: SCREEN ING MAMMOG ANURAG WITH TOMOSY NTHESI S REASON FOR EXAM: screen ing mammog anurga COMPAR JULIETH: SCREEN ING BREAST MINH, BILAT [...] annual mammog anurag. ASSESS MENT: Page [address] [facility] [address] [address] Patien t Name: REMEDIOS LIPSCOMB Access ion #: [id number] Sex: F : 1974 9 Dictat ed By: Chitra Borrero Attend ing Physic rachel: MURTUZ A, BAHRAI NWALA Orderi ng Physic rachel: BAHRAI NWALA, MURTUZ A Exam Date: 2024 09:44 AM Exam Name: MG SCRMonica BREAST MINH BILAT Admitt ing Diagno sis(es ): BIRADS : 1 - Negati ve Electr onical ly Signed by: Chitra Borrero at 2024 10:26: 32 AM Page [email or web address] [facility] (Imaging) [address] [place], [address], 02/03/2025 09:57:33 02/02/20 25 02/01/2025 MAMMO , scree perico, digit al, bilat eral No observ ation record ed. [email or web address] [facility] [address] [place], [address], 02/02/2025 19:08:31 02/02/20 25 02/01/2025 DEXA, axial skele ton [facility] [address] [place] [address] Patien t Name: REMEDIOS LIPSCOMB Access ion #: [id number] Sex: F : 1974 9 Locati on: RAD Attend ing Physic rachel: BAHRAI NWALA, MURTUZ A Orderi ng Physic rachel: BAHRAI ARTALA, MURTUZ A Exam Date: 025 9:20 AM Exam Name: [...] e of 1.7. Page 1 of 2 [facility] t Name: REMEDIOS LIPSCOMB [facility] ion #: [id number] Sex: F : 1974 9 Exam [...] 2:06 PM (CT) Page 2 of [email or web address] [facility] (Imaging) [address] [place], [address], 02/03/2025 09:57:33 02/02/20 25 02/01/2025 bone densi ty No observ ation record ed. [email or web address] [facility] [address] [place], [address], 02/02/2025 19:08:31 02/03/20 25 02/02/2025 CT, cervi nayla spine , w/o contr ast [facility] [address] [place] [address] Patien t Name: REMEDIOS LIPSCOMB ion #: [id number] Sex: F : 1974 8 Locati on: RAD Attend ing Physic rachel: TENZIN HEART Orderi Physic rachel: TENZIN HEART Exam Date: 9:21 AM Exam Name: CT [...] Dose: CTDI volume is 18.4 mGy. Dose-l [facility] t is 562.4 mGy*cm . Page 1 of 3 [facility] Patikevin t Name: REMEDIOS LIPSCOMB ion #: [id number] Sex: F : 1974 8 Exam [...] Dictat ed by: Hao lynn MD DD: 4/23/2 025 4:06 PM (CT) Page 2 of 3 [facility] Patien t Name: REMEDIOS LIPSCOMB ion #: [id number] Sex: F : 1974 8 Exam Date: 025 9:21 AM Exam Name: CT C SPINE WO Admitt ing Diagno sis(es ): DT: 025 4:06 PM (CT) Page 3 of [address] (Imaging) [address] [place], [address], 02/03/2025 09:57:34 02/03/20 25 02/02/2025 imagi ng/di agnos tic resul t No observ ation record ed. [facility] [address] [place], [address], 02/02/2025 17:11:23 03/01/20 25 03/01/2025 imagi ng/di agnos tic resul t No observ ation record ed. [facility] [address] [place] [address] [address], [place], [address], 03/01/2025 15:14:03 03/22/20 25 03/22/2025 imagi ng/di agnos tic resul t No observ ation record ed. [facility] [address] [facility] [address], [place], [address], 03/22/2025 12:07:50 03/22/20 25 03/22/2025 imagi ng/di agnos tic resul t No observ ation record ed. [facility] [address] [facility] [address], [place], [address], 03/22/2025 11:32:38 05/28/20 25 05/28/2025 imagi ng/di agnos tic resul t No observ ation record ed. [address], [place], [address], 05/28/2025 11:41:53 06/02/20 25 06/02/2025 neoi ng/shiraz batistaos tic resul t No observ ation record ed. [facility] [address] [facility] [address], [place], [address], 06/02/2025 17:18:25 Result Notes Documentation Provider Name and Address Organization Details Recorded Time Xr, Cervical Spine, 2 Or 3 View : [facility] [address] [place] [address] Patient Name: REMEDIOS LIPSCOMB Sex: F : [...] to a left chest pacemaker. Page 1 [facility] [address] [place] [address] Patient Name: REMEDIOS LIPSCOMB Sex: F : 1975 Dictated By: Hao Posey Attending Physician: MARILEE KING Ordering Physician: FERNANDO HILLMAN Exam Date: 01/25/2025 10:44 AM Exam Name: XR C SPINE 3V Admitting Diagnosis(es): Page 2 Fernando Hillman MD [address] [facility], [facility] [address], [place], [address], [facility] 01/25/2025 15:13:28 Dexa, Axial Skeleton : [facility] [address] [place] [address] Patient Name: REMEDIOS LIPSCOMB Sex: F : 1975 Location: [facility] Attending Physician: FERNANDO HILLMAN Ordering Physician: FERNANDO [...] T-score of 1.7. Page 1 of 2 [facility] Patient Name: REMEDIOS LIPSCOMB Sex: [...] MD (CT) (CT) Page 2 [facility] 2 [facility] Path101 [facility] 02/03/2025 09:57:33 Ct, Cervical Spine, W/o Contrast : [address] [address] Patient Name: REMEDIOS LIPSCOMB Sex: F : 1975 Location: [facility] Attending Physician: FERNANDO HILLMAN Ordering Physician: FERNANDO [...] is 562.4 mGy*cm. Page 1 of 3 [facility] Patient Name: REMEDIOS LIPSCOMB Sex: [...] Posey MD (CT) Page 2 of 3 [facility] Patient Name: REMEDIOS LIPSCOMB Sex: F : 1975 Exam Date: 02/02/2025 9:21 AM Exam Name: CT C SPINE WO Admitting Diagnosis(es): (CT) Page 3 of 3 RACHANA Davis [facility] 02/03/2025 09:57:34 Problems Name Problem SNOMED Code Status Onset Date Resolution Date Notes Provider Name and Address Organization Details Recorded Time Metatarsa lgia 44108659 Active Lupe Grey, [employer] [address], [address] , [place] [facility] 4 17:29:30 Backache 649636507 Completed Not Available [facility] 3 01:09:00 Increased frequency of urination 207964134 Completed Not Available [facility] 3 01:09:00 Abdominal pain 23733957 Completed Not Available [facility] 3 01:09:01 Increased blood pressure 42512769 Completed 05/07/2024 Lupe Grey APRN [address], [place], [address] , [place] [facility] 4 17:29:55 Dysmenorr hea 575116702 Completed Not Available [facility] 3 01:09:01 Sleep pattern disturban ce 33754530 Completed Not Available [facility] 3 01:09:01 Eruption 872825636 Completed Lupe Grey APRN [address], [address], [place], [address] , [facility] - [facility] 4 17:30:51 Rib pain 452744375 Completed Not Available [facility] 3 01:09:02 Excessive growth of facial hair 399258394 Active Lupe Grey APRN [address], [address], [place], [address] , [facility] - [facility] 4 17:31:01 Right lower quadrant pain 215695747 Completed Not Available [facility] 3 01:09:02 Pain in pelvis 45825516 Completed Not Available [facility] 3 01:09:02 Sinusitis 97158344 Completed 05/07/2024 Fernando carrillo MD [address], [address], [place], [address] , [facility] - [facility] 5 15:48:57 Migraine 70549228 Active Lupe Grey APRN [address], [address], [place], [address] , [place] [facility] 4 14:11:04 Menorrhag ia 271993067 Completed RADHA Milan [address], [place], [address] , [employer] [facility] [employer] [facility] 3 20:02:43 Sinus tarsi syndrome 035143943 Active Lupe Grey APRN [address], [place], [address] , [employer] [facility] 4 17:29:15 Ureteric stone of lower third of ureter 361299254 Completed Not Available [facility] 3 01:09:03 Foot pain 02919374 Completed Not Available [facility] 3 01:09:03 Anxiety 92443455 Active Not Available [facility] 3 07:36:52 Dysuria 95341717 Completed Not Available [facility] 3 01:09:04 Peroneal tendiniti s 30716318 Completed 05/07/2024 Lupe Grey APRN [address], [place], [address] , [employer] [facility] [employer] [facility] 4 17:30:23 Capsuliti s 0240038 Active Not Available [facility] 3 07:36:52 Rhinitis 53041157 Completed Not Available [facility] 3 01:09:05 Exposure to SARS-CoV- 2 Completed Not Available [facility] 3 01:09:06 Fatigue 24977235 Active Lupe Grey APRN [address], [address], [place], [address] , [employer] [facility] [employer] [facility] 4 14:10:49 Pain in limb 04044364 Completed Not Available [facility] 3 01:09:07 Skin lesion 94361497 Completed Not Available [facility] 3 01:09:07 Kidney stone 07167507 Completed RICK Lag[address], [place], [address] , [employer] [facility] [employer] [facility] 4 17:31:06 Pain in right foot 13734384752 9107 Active Lupe Grey APRN [address], [address], [place], [address] , [employer] 4 16:46:00 Verruca plantaris 54956023 Active 2018 Not Available [facility] 3 07:36:52 Primary osteoarth ritis of midfoot 177478024 Active 2018 Lupe Grey APRN [address], [address], [place], [address] , [employer] [facility] 4 17:30:19 Booth's neuroma of right foot 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 9108 Active 2019 Not Available [facility] 3 07:36:52 Dystrophi a unguium 72129523 Active 2020 Lupe Grey APRN [address], [address], [place], [address] , [employer] [facility] 4 14:10:41 Asthma 505079176 Active 2021 Lupe Grey APRN [address], [place], [address] , [employer] 4 14:10:27 Leukocyto sis 170019792 Active 2021 Not Available [facility] 3 07:36:52 Celluliti s of skin 695661330 Completed 202105/07/2024 Lupe Grey APRN [address], [address], [place], [address] , [employer] [facility] 4 17:29:48 Multiple infected superfici al wounds 819218460 Completed 202105/07/2024 Lupe Grey APRN [address], [address], [place], [address] , [employer] 4 17:30:36 Hyperlipi demia 46045338 Active 2021 Fernando carrillo MD [address], [address], [place], [address] , [place] [facility] 5 15:13:37 Liver enzymes level above reference range 945419207 Completed 202105/07/2024 Lupe Grey APRN [address], [address], [place], [address] , [place] [facility] 4 17:30:47 Acute sinusitis 41861218 Completed 202105/07/2024 Pallavi Pulido, Amy null, [place] [facility] 5 11:59:33 Prediabet es 391136143 Active 2021 Lupe Grey APRN [address], [address], [place], [address] , [place] [facility] 4 14:11:19 Pain in throat 185582853 Completed 202105/07/2024 Lupe Grey APRN [address], [address], [place], [address] , [place] [facility] 4 17:30:30 Abscess of skin and/or subcutane ous tissue 55620994 Completed 202205/07/2024 Lupe Grey APRN [address], [address], [place], [address] , [place] [facility] 4 17:30:54 Chronic low back pain 059858431 Active 2022 Lupe Grey APRN [address], [place], [address] , [place] [facility] 4 14:10:37 Dyspnea on exertion 33502411 Active [address], [place], [address] , [place] [facility] 4 17:31:00 Upper respirato ry infection 19757078 Completed 202205/07/2024 Lupe Grey APRN [address], [place], [address] , [employer] 4 16:32:12 Pain of multiple joints 64009738 Completed 202205/07/2024 Lupe Grey APRN [address], [place], [address] , [employer] 4 17:30:33 Sleep apnea 24923188 Active 2022 Lupe Grey APRN [address], [place], [address] , [employer] 4 14:11:24 Chronic abdominal pain 064883226 Active 2022 Lupe Grey APRN [address], [place], [address] , [employer] 4 17:29:51 Mixed anxiety and depressiv e disorder 122728144 Active 2022 Lupe Grey APRN [address], [place], [address] , [employer] 4 14:10:57 Cervical radiculop athy 40575344 Active 2022 Lupe Grey APRN [address], [place], [address] , [employer] 4 14:10:32 Metabolic dysfuncti on-associ ated steatohep atitis 787436302 Active 2022 Lupe Grey APRN [address], [place], [address] , [employer] 4 14:11:07 Obesity 522764427 Active 2022 Fernando carrillo MD [address], [place], [address] , [employer] 5 12:49:55 Menorrhag ia 024172963 Active 2022 Not Available [facility] 3 07:36:52 Eruption 578183462 Completed 202205/07/2024 Lupe Grye APRN [address], [place], [address] , [employer] [facility] 4 17:30:51 Pain of toe of right foot 11925059947 9101 Completed 202205/07/2024 Lupe Grey APRN [address], [place], [address] , [employer] 4 17:30:26 Kidney stone 72658617 Completed 202205/07/2024 Lupe Grey APRN [address], [place], [address] , [employer] [facility] 4 17:31:05 Urinary incontine nce 877940570 Active 2022 Lupe Grey APRN [address], [place], [address] , [employer] [facility] 4 14:11:33 Essential hypertens ion 73128295 Active 2023 Lupe Grey APRN [address], [place], [address] , [employer] [facility] 4 17:29:01 Mass of upper limb 683776470 Active 2023 Lupe Grey APRN [address], [place], [address] , [employer] [facility] 4 17:14:15 Infection of big toe 731957963 Completed 202305/07/2024 Lupe Grey APRN [address], [place], [address] , [employer] [facility] 4 17:29:58 Pain radiating to thoracic region left side 274113677 Completed 202305/07/2024 Lupe Grey APRN [address], [place], [address] , [place] [facility] 4 17:29:34 Nodule of lung 562818246 Active 2023 Lupe Grey APRN [address], [place], [address] , [place] [facility] 4 10:27:29 Ingrowing nail of toe of right foot 88969539269 734142 Completed 202305/07/2024 Lupe Grey APRN [address], [place], [address] , [place] [facility] 4 17:30:02 Dyspnea 934090891 Completed 202305/07/2024 Lupe Grey APRN [address], [place], [address] , [facility] 4 17:29:40 Cardiac pacemaker in situ 613161999 Active 2023 Lupe Grey APRN [address], [place], [address] , [facility] 4 12:06:50 Arthritis 3146705 Active 2023 Lupe Grey APRN [address], [place], [address] , [facility] 4 11:17:36 Upper respirato ry infection 48398269 Active 2023 Lupe Grey APRN [address], [place], [address] , [place] [facility] 4 16:32:12 Acute urticaria 728329271 Active 2023 Mariola Lal NP [address], [place], [address] , [place] [facility] 4 10:12:48 Mitral valve regurgita tion 51319746 Active 2023 Lupe Grey APRN [address], [place], [address] , [facility] 4 20:25:03 Sick sinus syndrome 59726487 Active 2023 Lupe Grey APRN [address], [place], [address] , [facility] 4 20:25:36 Butterfly rash 70919393 Active 2023 Lupe Grey APRN [address], [place], [address] , [facility] 4 16:26:12 Coronary arteriosc lerosis 82076183 Active 2024 Fernando carrillo MD [address], [place], [address] , [facility] 5 09:22:46 Vitamin D deficienc y 18270191 Active 2024 Fernando carrillo MD [address] [address], [place], [address] , [facility] 5 15:30:33 Pain in face 64805067 Active 2024 Fernando carrillo MD [address], [place], [address] , [facility] 5 15:31:48 Sinusitis 19057732 Active 2024 Fernando carrillo MD [address], [place], [address] , [facility] 5 15:48:57 Recurrent sinusitis 031996423 Active 2024 DENTON López null, [facility] 5 14:01:33 Chronic neck pain 78318428022 07 Active 2024 Pallavi Pulido RMA null, [place] [facility] 5 18:19:47 Hypokalem ia 61119156 Active 2024 Fernando carrillo MD [address] [address], [place], [address] , [place] [facility] 5 15:13:08 Hyperglyc emia 29520518 Active 2024 Pallavi Pulido RMA null, [place] [facility] 5 15:34:55 Liver function tests outside reference range 577662842 Active 2024 DENTON López null, [place] [facility] 5 15:37:21 Acute cough Active 2024 DENTON López, [place] [facility] 5 10:28:32 Eruption of skin of face Active 2024 Pallavi Pulido RMAmy null, [place] [facility] 5 16:34:49 Low back pain 261549851 Active 2024 Pallavi Pulido RMAmy null, [place] [facility] 5 17:45:22 Upper respirato ry tract finding 483635078 Active 2024 Lanny Laws MA null, [place] [facility] 5 18:06:05 Acute sinusitis 43460848 Active 2024 DENTON López null, [place] [facility] 5 11:59:32 Notes:Medical History: Anxie ty Migraine headaches COVID [...] Chemical Matrixectomy-Right completed Rich Lockwood DPM [address] [facility] [address], [place], [address], [employer] [facility] [employer] [facility] 02/12/2024 16:28:22 07/13/20 19 Date of Last Colonoscopy completed Not Available [facility] 12/11/2022 00:55:40 06/02/20 19 Cholecystectomy completed Not Available [facility] 12/11/2022 00:55:45 Pacemaker completed Not Available [facility] 12/11/2022 00:55:45 ligation of bilateral fallopian tubes completed Not Available [facility] 12/11/2022 00:55:45 Hysterectomy completed Tasha Hassan MA [employer] [facility] [employer] [facility] 06/16/2024 08:31:26 Neck completed DENTON López [facility] [employer] [facility] 01/19/2025 15:15:40 insertion of stent into femoral artery completed DENTON López [employer] [facility] [employer] [facility] 01/19/2025 15:16:01 Carpal tunnel completed Tasha Hassan MA [employer] [facility] [employer] [facility] 06/28/2025 08:48:49 Imaging Results None recorded. Procedure Notes None recorded. Medical Equipment None Reported. Allergies Allergen ID Allergen Name Allergen Category Reaction Reaction Severity Criticality Documentation Date Start Date Code Code System Note Provider Name and Address Organization Details Recorded Time 7 Product containin g penicilli n (product) medicatio n Not available Not available Not available 12/11/2022 [id number] SNOMED Other react ions and sever ities : 'Adve rse react ion to subst ance' . Lupe Grey APRN [address], [facility] [address], [place], [address], [employer] [facility] [employer] [facility] 4 16:45:37 Medications Name Sig Start Date Stop Date Status Note LastModified by Organization Details LastModified Time Prescript ion - Prior Authoriza tion Request active Not Available Not Available Not Available diclofena c 75 mg-misopr ostol 200 mcg [...] TAKE 1 TABLET BY MOUTH EVERY DAY NEEDED active Not Available Not Available No t Available medroxypr ogesteron e 10 mg tablet [...] 5 x 2 days, 4x 2 days, 4h3slos, 0j5ojvb, 2v2jfpf PO in AM active Not Available Not [...] DAILY FOR 7 DAYS NEEDED FOR PAIN 06/06 completed Not Available Not Available Not [...] mg tablet TAKE 2 TABLETS BY MOUTH DAILY FOR 5 DAYS 06/06 completed Not Available Not Available Not [...] oral route as needed for 90 days. 06/28 completed Not Available Not Available Not Available [...] TO THE AFFECTED AREA TWICE DAILY NEEDED 2024 active Not Available Not Available Not Avai lable amoxicill in 500 mg tablet TK 2 [...] 1 TABLET BY MOUTH TWICE DAILY WITH MEALS NEEDED FOR BACK PAIN active Not Available Not Available No t Available oxycodone -acetamin ophen 5 mg-325 mg [...] BY MOUTH EVERY 8 HOURS NEEDED FOR MUSCLE PAIN OR SPASM 06/28 completed Not Available Not Available Not Available [...] Not Available cephalexi n 500 mg capsule TAKE 1 CAPSULE BY MOUTH EVERY 6 HOURS FOR 7 DAYS active Not Available Not Available No t Available Prozac 20 mg capsule Take 1 [...] mometason e 50 mcg/actua tion nasal spray [place] 2 sprays every day by intranas al [...] Not Available Not Available No t Available [place] 10 mg-325 mg tablet Take 1 tablet [...] t Available levofloxa nidhi 750 mg tablet Take 1 tablet every day by oral route for 7 days. 2024 active Not Available Not Available Not Avai lable zolpidem 10 mg tablet TK ONE T PO ONCE D HS 06/06 completed Not Available Not Available Not Available methylpre dnisolone 4 mg tablets in a dose pack TAKE 6 TABLETS ON DAY 1 DIRECTED ON PACKAGE AND DECREASE BY 1 TAB EACH DAY FOR A TOTAL OF 6 DAYS 06/06 completed Not Available Not Available Not [...] e 50 mcg/actua tion nasal spray,monse pension [place] 2 sprays every day by intranas al [...] MOUTH EVERY 6 HOURS NEEDED FOR PAIN 06/28 completed Not Available Not Available Not Available hydroxyzi ne pamoate 25 mg capsule TAKE 1 CAPSULE BY MOUTH AT BEDTIME NEEDED active Not Available Not Available No t Available clindamyc in 1 % lotion APPLY [...] 1 TABLET BY MOUTH EVERY DAY 06/28 completed Not Available Not Available Not Available [...] on route as directed for 30 days. 06/28 completed Not Available Not Available Not Available ranolazin e ER 500 mg tablet,ex tended [...] for 8 weeks; Take with OTC Calcium. 06/06 completed Not Available Not Available Not [...] chloride ER 20 mEq tablet,ex tended release Take 2 tablets every day by oral route for 5 days. 06/18 completed Not Available Not Available Not Available [...] 0.25 mg/0.5 mL subcutane ous pen injector Inject 0.5 mL (0.25 mg) by subcutan eous injectio n every 7 days. active Not Available Not Available No t Available Ozempic 0.25 mg or 0.5 mg (2 mg/3 mL) subcutane ous pen injector INJECT 0.25MG UNDER THE SKIN EVERY WEEK FOR 42 DAYS 06/15 completed Not Available Not Available Not Available Zepbound 2.5 mg/0.5 mL subcutane ous pen injector ADMINIST ER 2.5 MG UNDER THE SKIN EVERY WEEK active Not Available Not Available No t Available Vitals Date Recorded Body height Body mass index (BMI) Body weight Body temperature Heart rate Systolic And Diastolic Provider Name and Address Organization Details Last Updated DateTime 5 180.34 cm 27.9 kg/m2 83470.4 7 g 97.1 [degF] 72 /min 114/70 mm[Hg] DENTON López [facility] [employer] [facility] 5 15:17:47 Date Recorded Body height Body mass index (BMI) Body weight Body temperature Heart rate Systolic And Diastolic Provider Name and Address Organization Details Last Updated DateTime 5 180.34 cm 27.3 kg/m2 90476.1 g 97.8 [degF] 78 /min 136/84 mm[Hg] Pallavi Pulido Amy [facility] [employer] 5 12:27:31 Date Recorded Body height Body mass index (BMI) Body weight Body temperature Pain severity - 0-10 verbal numeric rating [Score] - Reported Heart rate Oxygen saturation Oxygen saturation in Arterial blood by Pulse oximetry Systolic And Diastolic Provider Name and Address Organization Details Last Updated DateTime 5 180.34 cm 28 kg/m2 62030.0 7 g 97 [degF] 0 65 /min 98 % 98 % 130/88 mm[Hg] Tasha Hassan [place] [employer] [facility] [employer] 5 08:46:46 Date Recorded Body height Body mass index (BMI) Body weight Body temperature Heart rate Oxygen saturation Oxygen saturation in Arterial blood by Pulse oximetry Pain severity - 0-10 verbal numeric rating [Score] - Reported Systolic And Diastolic Provider Name and Address Organization Details Last Updated DateTime 4 180.34 cm 32.8 kg/m2 625414. 21 g 97.2 [degF] 59 /min 99 % 99 % 6 118/76 mm[Hg] Tasha Hassan MA [place] [employer] [facility] [employer] 4 16:11:12 Social History Question Answer Notes LastModified by Organizat ion Details LastModified Time Tobacco Smoking Status Former [facility]oker quit 2016 Not Available [facility] 12/11/2022 00:54:06 Do You Have An Advance Directive? No MIGRATION.[id number] Information not available 12/11/2022 What Is Your Level Of Caffeine Consumption? None MIGRATION.46924 61831 Information not available 12/11/2022 How Much Tobacco Do You Chew? None MIGRATION.76597 60996 Information not available 12/11/2022 In The 14 Days Before Symptom Onset, Have You Had Close Contact With A Laboratory-confi rmed COVID-19 While That Case Was Ill? No MIGRATION.48294 32681 Information not available 12/11/2022 In The 14 Days Before Symptom Onset, Have You Had Close Contact With A Person Who Is Under Investigation For COVID-19 While That Person Was Ill? No MIGRATION.43207 95213 Information not available 12/11/2022 What Type Of Diet Are You Following? REGULAR MIGRATION.56853 47609 Information not available 12/11/2022 Which Illicit Or Recreational Drugs Have You Used? None MIGRATION.61657 71346 Information not available 12/11/2022 Have There Been Any Changes To Your Family Or Social Situation? No MIGRATION.12721 88577 Information not available 12/11/2022 What Is The Fluoride Status Of Your Home? Unknown MIGRATION.66283 35597 Information not available 12/11/2022 When Did You Quit Smoking? 1-5yearssincelastc igarette MIGRATION.84813 85897 Information not available 12/11/2022 Are There Any Guns Present In Your Home? No MIGRATION.45241 61007 Information not available 12/11/2022 Do You Use Insect Repellent Routinely? Yes MIGRATION.40492 08591 Information not available 12/11/2022 Where Do You Live? [facility] MIGRATION.93879 94468 Information not available 12/11/2022 What Was The Date Of Your Most Recent Tobacco Screening? 06/28/2025 Information not available 06/28/2025 How Many Children Do You Have? 1 Information not available 06/16/2024 Do You Have Any Pets? Yes MIGRATION.87299 09458 Information not available 12/11/2022 What Is Your Relationship Status? Information not available 06/16/2024 Do You Use Your Seat Belt Or Car Seat Routinely? Yes MIGRATION.59646 04038 Information not available 12/11/2022 Do You Have Smoke And Carbon Monoxide Detectors In Your Home? Yes MIGRATION.23937 24180 Information not available 12/11/2022 At What Age Did You Start Smoking Tobacco? 19 Information not available 01/19/2025 Are You Passively Exposed To Smoke? No MIGRATION.87112 98402 Information not available 12/11/2022 Are There Any Smokers In Your House? No MIGRATION.31177 26175 Information not available 12/11/2022 How Much Tobacco Do You Smoke? No 1/2 Ppd Information not available 01/19/2025 Do You Use Sunscreen Routinely? Yes MIGRATION.54222 74896 Information not available 12/11/2022 Have You Recently Traveled Abroad? No MIGRATION.02596 61292 Information not available 12/11/2022 Do You Have Any Dietary Restrictions? No MIGRATION.12791 95009 Information not available 12/11/2022 Sex: Female Functional Status Question Answer Note LastModified by Organizat ion Details LastModified Time Do you use any illicit or recreational drugs? No Information not available 01/20/2024 Do you or have you ever used any other forms of tobacco or nicotine? No Information not available 01/20/2024 What is your level of alcohol consumption? None MIGRATION.064125 8526 Information not available 12/11/2022 Do you or have you ever used smokeless tobacco? Never used smokeless tobacco MIGRATION.868621 3938 Information not available 12/11/2022 Are you currently employed? 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 Never used electronic cigarettes MIGRATION.714857 5706 Information not available 12/11/2022 What is your exercise level? Occasional MIGRATION.233459 0309 Information not available 12/11/2022 Mental Status Question Answer Note LastModified by Organizat ion Details LastModified Time Do you feel stressed (tense, restless, nervous, or anxious, or unable to sleep at night)? HI1037-9 MIGRATION.[id number] 6 Information not available 12/11/2022 Family History Relationship Description Onset Age of this Age Resolved Age Notes LastModified by Organization Details LastModified Time Paternal Grandmother Malignant tumor of breast MIGRATION.352 [id number] Not available 12/11/2022 00:55:52 Mother Hypothyroidi sm MIGRATION.172 [id number] Not available 12/11/2022 00:55:52 Mother Hypertensive disorder MIGRATION.451 [id number] Not available 12/11/2022 00:55:52 Brother Malignant neoplasm of urinary bladder MIGRATION.965 [id number] Not available 12/11/2022 00:55:52 Brother Malignant neoplasm of urinary bladder MIGRATION.674 6915105 Not available 12/11/2022 10:41:03 Father Hypertensive disorder MIGRATION.173 [id number] Not available 12/11/2022 00:55:52 Medical History Condition [...] PF 5 completed Lupe Grey APRN [address], [place], [address], [employer] 05/07/2024 17:26:03 Influenza, split virus, quadrivalent, PF 9 completed Lupe Grey APRN [address], [place], [address], [employer] 05/07/2024 17:26:18 Influenza, split virus, quadrivalent, preservative 9 completed Lupe Grey APRN [address], [place], [address], [employer] 05/07/2024 17:26:18 Influenza, split virus, quadrivalent, PF 2 completed Not Available [facility] 07/08/2023 07:36:53 Influenza, split virus, trivalent, PF 4 completed Lupe Grey APRN [address], [place], [address], [employer] 08/24/2024 08:02:41 Past Encounters Encounter ID Performer Location Encounter Start Date Encounter Closed Date Diagnosis/Indication Diagnosis SNOMED-CT Code Diagnosis ICD10 Code Diagnosis IMO Codes Diagnosis Note [id number] RADHA Milan S_[facility] Internal Med [address] [place] [address] 12/11/2020 00:00:00 12/11/2020 14:02:50 [id number] RADHA Milan Lia_[facility] Internal Med [address] [place] [address] 12/22/2020 00:00:00 12/22/2020 14:36:19 [id number] Fernando carrillo MD [facility] [address] [address] 03/13/2021 00:00:00 03/13/2021 15:46:11 [id number] [facility] Fredi Morton [address] [facility] [address] [place] [address] 2021 00:00:00 03/15/2021 09:29:23 [id number] Dion Bonilla MD [facility] U[facility] [address] [address] 05/01/2021 00:00:00 05/01/2021 16:38:55 [id number] Dion Bonilla MD [facility] [address] [address] 05/15/2021 00:00:00 05/15/2021 16:27:01 [id number] Dion Bonilla MD [facility] [address] [address] 06/12/2021 00:00:00 06/12/2021 16:20:40 [id number] Dion Bonilla MD [facility] [address] [address] 12/04/2021 00:00:00 12/04/2021 16:41:56 [id number] Fernando carrillo MD [facility] [address] [address] 12/10/2021 00:00:00 12/10/2021 12:22:36 [id number] Fernando carrillo MD [facility] [address] [address] 02/04/2022 00:00:00 02/04/2022 16:59:41 [id number] Fernando carrillo MD [facility] Internal Med [place] [address] [facility] y , [facility] [place] [address] 05/29/2022 00:00:00 05/29/2022 14:29:00 [id number] Fernando carrillo MD [facility] Internal Med [facility] [address] [facility] [address] [place] [address] 08/23/2022 00:00:00 08/23/2022 16:15:38 [id number] Fernando carrillo MD [facility] Internal Med [facility] [address] [facility], [facility] [address] [place] [address] 10/18/2022 00:00:00 10/18/2022 16:08:06 [id number] Vamshi villarreal MD [facility] General Surgery [address] [facility], [facility] [address] [place] [address] 10/24/2022 00:00:00 10/24/2022 13:02:36 [id number] Melida Caal, [facility] [place] [facility] [place] [address] [place] [address] 11/18/2022 00:00:00 11/18/2022 16:38:14 [id number] Jo Burks NP [facility] [address] [facility], [address] [address] 03/26/2021 00:00:00 03/26/2021 13:21:21 [id number] Jo Burks NP S_[facility] [address] [facility], [address] [address] 07/31/2021 00:00:00 07/31/2021 10:17:57 [id number] Jo Burks NP [facility] [address] [facility], [address] [address] 11/07/2021 00:00:00 11/07/2021 10:52:56 [id number] Jo Burks NP [facility] [address] [address] 03/20/2022 00:00:00 03/20/2022 14:35:14 [id number] Jo Burks NP [facility] [address] [address] 07/03/2022 00:00:00 07/03/2022 15:33:58 [id number] Jo Burks NP [facility] [address] [address] 10/30/2022 00:00:00 10/30/2022 16:39:13 [id number] Fernando carrillo MD [facility] Internal Med [place] [address] [facility] [place] [address] 12/25/2022 11:12:18 12/25/2022 11:45:36 Hyperlipidemia 82287479 E78.5 on atorvastat in Pain of mu ltiple joints 51942745 M25.50 was following rheum, now is doing better, no longer on meds/follo wing them Menorrhagia 451592207 N9 2.0 now follow 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 Thrasher at [facility]/p hyst Asthma [id number] J45.90 9 recommend she take her Advair as prescribed on albuterol prnget re-establi shed with pulm Sleep apnea 79523764 G47 .30 is s/p sleep study no JAMILA, but could be checked for narcolepsy - she declines referral for MSLT or for sleep specialist at this time Chronic ab dominal pain [id number] R10.9 Follows GI- Dr. Juan Francisco Martinez Mixed anxi ety and depressive disorder 059277761 F41.8 now following psychiatry - Jo at [facility] duloxetine , wellbutrin call office if any change in mood or behavior Cardiac dipak colón in situ 388316041 Z95.[address] Johnson Cervical radiculopathy 78245661 M54.12 following neurosurge ry- Dr. 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 Menon Body mass index 25-29 - overweight 813627779 Z68.29 recommend healthy, well balanced mealsfocus on lean meats, fresh vegetables , fresh fruits, whole grainsredu ce fast/proce ssed foods or eating out to no more than 1-2 times per weekaim to get 30 min of exercise most days of the week- walking is a great choice Chronic low back pain 27 6931569 M54.50 [facility]- she declinesER precaution s Screening mammography 24 665118 Z12.31 [id number] Jo Burks NP [facility] [employer] [facility] 2043 [facility], [address] [address] 04/08/2023 15:58:21 04/08/2023 16:43:25 [id number] Dion Bonilla MD [facility] Urology [address] [address] 05/26/2023 16:28:58 05/26/2023 17:01:12 Kidney stone 41629935 N20.0 Hx of stones, check kub. Urinary incontinence 165 787527 R32 MOstly stress, went over conservati ve measures including pelvic floor exercises and timed voiding will call if wants PT. 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 Juan Francisco Martinez Mixed anxi ety and depressive disorder 196869778 F41.8 now following psychiatry - Jo at [facility] duloxetine , wellbutrin call office if any change in mood or behavior Cardiac pa eldon in situ 813427719 Z95.[address] Johnson Cervical radiculopathy 71484047 M54.12 following neurosurge ry- Dr. Guevara s/p cervical fusion gai n recommend she make a followup appt with her neurosurge on- this was recommende d previously and she did not goER grzegorz s Prediabetes 198778883 R7 3.03 insurance will not cover injectable sshe is working on diet/exerc ise Metabolic dysfunction-associate d steatohepatitis 796913052 K75.81 Follows [facility] hepatology - Dr. Menon Body mass index 25-29 - overweight 730413432 Z68.29 recommend healthy, well balanced mealsfocus on lean meats, fresh vegetables , fresh fruits, whole grainsredu ce fast/proce ssed foods or eating out to no more than 1-2 times per weekaim to get 30 min of exercise most days of the week- walking is a great choice Chronic low back pain 27 4440096 M54.50 wants new pain management referral in [facility] le- referred to [facility] but she decided not to faiza cyr PT- she declinesER grzegorz s Screening mammography 24 079011 Z12.31 [id number] Jo Burks NP [facility] [address] [address] 09/18/2023 09:43:32 09/18/2023 10:33:40 [id number] Fernando carrillo MD [facility] Internal Med [facility] 2043 [facility], [facility] [address] [place] [address] 01/20/2024 16:42:46 01/20/2024 17:19:13 Hyperlipidemia 54994040 E78.5 Mixed anxi ety and depressive disorder 875344505 F41.8 Fatigue 20961752 R53.83 Asthma 942580202 J45.90 9 Essential hypertension 86803925 I10 Mass of upper limb 96763 5008 R22.32 Infection of big toe 309 946144 L08.9 [id number] Jo Burks NP [facility] [address] [address] 01/28/2024 11:36:00 01/28/2024 12:24:25 [id number] Rich Lockwood DPM [facility] Podiatry [place] [address] [place] [address] [address] [place] [address] 02/12/2024 15:23:32 02/13/2024 09:05:12 Ingrowing nail of toe of right foot 8693761560 0086830 L60.0 great toe, medial borderpart ial matrixecto [...] the nearest ER.Follow- up in 10 days [id number] Rich Lockwood DPM [facility] Podiatry Fredi Morton [address] [place] [address] 02/23/2024 15:50:23 02/23/2024 18:00:13 Ingrowing nail of toe of right foot 6126533723 3307748 L60.0 great toe, medial borderpart ial matrixecto [...] worsens seek medical attention at the nearest ER. Follow-up in 7 days [id number] Fernnado carrillo MD [facility] Internal Med [facility] 2043 [facility], [address] [address] 05/10/2024 11:36:27 05/10/2024 12:11:55 Screening mammography 64753160 Z12.31 Asthma 197624711 J45.90 9 [id number] Fernando carrillo MD [facility] Internal Med [address] [place] [address] 06/16/2024 08:20:27 06/16/2024 08:53:54 Asthma 152645624 J45.530 [id number] Mariola Lal NP [facility] Pul[facility]olo [facility] [address] [place] [address] 07/15/2024 09:34:14 07/15/2024 10:20:49 Asthma 907758052 J45.31 ACT on no maintenanc e inhaler: 06P completed on 05/2024-wi get old records requestedL ab work ordered [...] on exertion 6084 5006 R06.09 Lab work todayP old record will be obtained as well as CXR doneAware to use Albuterol inhaler as needed-ok to use when sobEncoura ge patient to remain activefoll ow-up in 1 month-soon er for any changes in breathing and increase use of inhaler [id number] Fernando carrillo MD [facility] Internal Med [facility] 2043 [facility], [facility] [place] [address] 08/23/2024 15:48:14 08/23/2024 16:47:41 Butterfly rash 38857452 R21 Administra tion of influenza vaccine 68870164 Z23 Urinary incontinence 165 959864 R32 [id number] Fernando carrillo MD [facility] [address] [facility] [address] [place] [address] 01/19/2025 14:52:22 01/19/2025 15:48:57 Screening - NAD 673688136 Z13.9 C-scope: 09/2022- Valentin Martinez- polyp- repeat 5 years- 09/2027 Mammogram: 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 [facility] Get yearly flu shot, get tdap if not doneCan do shingrix vaccine and also get Prevnar #20 RTC 3 months, do labs, ER if worse, she did verbalize her understand ing of the above 45 minutes spent with her, discussed her various complaints and morbiditie s, labs provided and referrals provided Hyperlipidemia 38040042 E78.5 Not on any medsGet labs Asthma 665924619 J45.90 9 On HHNsOn AlbuterolO n floventNee ds to see pulmonary Sleep apnea 05739200 G47 .30 See pulmonaryR eferred Mixed anxi ety and depressive disorder 507089427 F41.8 On bupropion SR 200mg bidOn duloxetine 60mg dailyNot suicidal or homicidalS ees psychiatry , referred 01/19/2025 Cervical radiculopathy 13542730 M54.[address] VeronicaS/p surgeryNee ds to keep apt with NSGet on short course of meloxicam Chronic low back pain 27 0233507 M54.50 On ibuprofen, advised to take this very rarelyKeep apt with NSReferred 01/19/2025 Coronary arteriosclerosis 18361552 I25.10 S/p PMOn HCTZ 25mg dailyOn losartan 25mg dailyOn metoprolol 50mg bid Sees Dr Johnson, referred 01/19/2025 as she has noted dizziness Metabolic dysfunction-associate d steatohepatitis 776816758 K75.[address] Menon in [facility], referred 01/19/2025 Vitamin D deficiency 347 10869 E55.9 Screening mammography 24 512126 Z12.31 Gynecologi c examination 14687057 Z01.419 Sinusitis 17705133 J32.9 Mainly L sided sinuses, c/o throbbing pain, will get CT sinusGet on [facility] Postmenopausal state 764 [address]648 Z78.0 [id number] Fernando carrillo MD [facility] Primary Care [facility] [address] [employer] [facility] [address] [place] [address] 01/21/2025 11:21:31 01/21/2025 11:53:13 [id number] Fernando carrillo MD [facility] Primary Care [facility] [address] [employer] [facility] [address] [place] [address] 06/06/2025 11:28:57 06/06/2025 12:58:26 Screening - NAD 067602343 Z13.9 C-scope: 09/2022- Valentin Martinez- polyp- repeat 5 years- 09/2027 Mammogram: 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 On bupropion SR 200mg bidOn duloxetine 60mg dailyNot suicidal or homicidalS ees psychiatry , referred 01/19/2025 Cervical radiculopathy 14804635 M54.[address] Patel/ha Zaldivar ds to keep apt with NSGet on short course of meloxicam Is to see Dr Veronica 06/2025On methocarba mol thru the UC as per her hx 06/06/2025 Xray LS Spine: Robby Higuera DO: 06/02/2025 Chronic low back pain 27 9822666 M54.50 On ibuprofen, advised to take this very rarelyKeep apt with NS Coronary arteriosclerosis 16242020 I25.10 S/p PMOn HCTZ 25mg dailyOn losartan 25mg dailyOn metoprolol 50mg bid Sees Dr Johnson, referred 01/19/2025 as she has noted dizziness Metabolic dysfunction-associate d steatohepatitis 035819819 K75.[address] Menon in [facility], referred 01/19/2025 Vitamin D deficiency 347 43038 E55.9 Screening mammography 24 921407 Z12.31 Gynecologi c examination 10790759 Z01.419 Postmenopausal state 764 [address] Z78.0 Hypokalemia 48454836 E87 .6 9791 Get onK Obesity 941727094 E66.9 2281634 No MEN2, or MCT or parathyroi d or pancreatic complaints All side effects explained [id number] Jo Burks NP [facility] [address] [address] 06/15/2025 14:50:43 06/15/2025 18:38:32 [id number] Fernando carrillo MD [facility] Internal Med [facility] [address] [address] 06/28/2025 08:30:11 06/28/2025 09:12:25 Obesity 229653990 E66.9 [id number] No MEN2, or MCT or parathyroi d or pancreatic complaints or psychiatry complaints All side effects explained, did show the drug informatio n insert located in the box and discussed the side effects and site to useAdvised to hydrate and use supplement sDemonstra yosef use of the vial and the needle Health Concerns Section Related Observation LastModified by Organization Detai ls LastModified Time None Recorded Concern Status LastModified by Organization Details LastModified Time None Recorded Advance Directives Directive N: Payers Insurance Date Sequence Insurance Name Policy Number Policy Lebron Covered Member ID Lebron Member ID Guarantor Name 06/06/2025 [facility] Remedios Lipscomb SELF SELF Remedios Lipscomb 03/31/2023 1 *SELF PAY* Am jean carlos Lipscomb 06/06/2025 1 [id number] Remedios Lipscomb [id number] Remedios Lipscomb 06/06/2025 1 [place] [id number] Remedios Lipscomb [id number] Remedios Lipscomb 06/06/2025 2 *SELF PAY* Am jean carlos Lipscomb 06/28/2025 1 [facility] [id number] Remedios Lipscomb [id number] Remedios Lipscomb Notes Date Note Type Note Provider Name and Address Organization Details Recorded Time 08/23/2024 text/html Remedios presents today for rash on face. She states that the rash has been going on and off for the past couple of months, she states that it has been getting worse lately. She also states that she has been having issues of incontinence episodes that are embarrassing. 06/16/2024trino presents today for 3 month follow up. She was wheezing, coughing with no results. She states that she was in the ED at [facility]. She was not told the results of her testing there. And was not sent home with any prescriptions. 05/10/2024trino presents today for dyspnea, throat pain. She states that she is constantly feeling short of breath. She has been to see cardiology and ED for these episodes. Lupe Grey APRN [address], [place], [address], [employer] 08/24/2024 08:38:02 01/19/2025 text/html OV 01/19/2025: Here to establish care Present Hx:HLDAsthmaAnxiety/Dep ressionLBPCADNon alcoholic hepatic steatosisSinusitis Here to discuss multiple issues, wants to discuss sinus symptoms, has noted facial pain and this has caused her dizzy symptoms Fernando Hillman MD [address], [place], [address], [employer] 01/19/2025 18:36:01 06/06/2025 text/html OV 01/19/2025: Here to establish care Present Hx:HLDAsthmaAnxiety/Dep ressionLBPCADNon alcoholic hepatic steatosisSinusitis Here to discuss multiple issues, wants to discuss sinus symptoms, has noted facial pain and this has caused her dizzy symptoms OV 06/06/2025: Here for her f/u apt, she is doing well today Fernando Hillman MD [address], [place], [address], [facility] [employer] [facility] 06/06/2025 14:14:13 06/28/2025 text/html OV 01/19/2025: Here to establish care Present Hx:HLDAsthmaAnxiety/Dep ressionLBPCADNon alcoholic hepatic steatosisSinusitis Here to discuss multiple issues, wants to discuss sinus symptoms, has noted facial pain and this has caused her dizzy symptoms OV 06/06/2025: Here for her f/u apt, she is doing well today OV 06/28/2025: Here for [employer] teaching and its useShe feels well today Fernando Hillman MD [address], [place], [address], [facility] [employer] [facility] 06/28/2025 09:39:59 OBGyn Episode No OBEpisode recorded.
--- OUTSIDE RECORDS SUMMARY | 2025-07-06 12:17 | XMS_ITS | Clinical Summary ---
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 [employer] [facility] 07/29/2024 [id number] / / [id number] [employer] Crisótbal Stent Venous Wall [id number] - [id number] Implanted:Qty: 1 on 08/21/2023 by Finn Johnson MD at [facility] [employer] [facility] 10/22/2024 [id number] / / [id number] Insurance [facility] Advance Directives For more information, please contact: [phone] * Full Code (Latest Code Status on File) Date Activated Date Inactivated Comments 08/21/2023 2:40 PM 08/21/2023 8:52 PM * Full Code Date Activated Date Inactivated Comments 08/17/2019 9:45 AM 08/17/2019 2:34 PM Care Teams Forepart Reducer Relationship Specialty [place] [address] [address] [address] PCP - General Family Medicine 03/23/24 [place] [address] [address] [address] Consulting Physician Cardiology 08/17/19
--- OUTSIDE RECORDS SUMMARY | 2025-07-06 12:17 | XMS_ITS | Clinical Summary ---
Author Organization [facility] Address [address] [place] [address] Care Team Providers Care Automobile Service Advisor Name Role Phone Laverne Oviedo MD Primary [...] COVID-19 Vaccine ( - 2023-2 5 season) 2025 Meningococcal B Vaccine Aged Out No l onger eligible based on patient's age to complete this topic Meningococcal Vaccine Aged Out No shanita tristan eligible based on patient's age to complete this topic RSV Immunizations Under 20 Months Aged Out No longer eligible based on patient's age to complete this topic Insurance [facility] Care Teams Automobile Service Advisor Relationship Specialty Start Date End Date Laverne Oviedo MD [address] [place] [address] PCP - General OBGYN 02/08/20
--- OUTSIDE RECORDS SUMMARY | 2025-07-06 12:17 | XMS_ITS | Patient Health Record ---
Author Organization [facility] Address [address] [facility] [address] [place] [address] Care Team Providers Care Circulation Representative Name Role Phone Dejon Woody Unavailable [phone] Reason For Referral No Information Plan Of Treatment No Information Insurance Providers Payer Name Payer Address Payer Phone Subscriber Number Group Number Insured Name Patient Relationship to Insured Coverage Start Date Coverage End Date [email or web address] [address] [place] [address] [id number] TERRI LOZANO Self - patient is the insured
--- OUTSIDE RECORDS SUMMARY | 2025-07-06 12:18 | XMS_ITS | Clinical Summary ---
Author Organization [facility] Address [address] [place] [address] Care Team Providers Care Order Dispatcher Name Role Phone Hayley Fonseca APRN-NATHANAEL Primary Care Provider [phone] Source Comments [facility],non-owned Affiliates and Associated Physician Practices is amultiple site organization consisting of ambulatory clinics and hospital sitesin [place], [place], [place] and [place]. This disclosure is being madepursuant to the Care Everywhere program and may not contain all information available regarding this patient. Last updated 18.[facility] Allergies Active Allergy Reactions Criticality Noted Date [...] HDLc 59, TG 92 Rheumatoid arthritis 02/15/2021 retirement current use of anticoagulant therapy 1 10/30/2018 Supraventricular tachycardia 07/30/2019 Sleep apnea 10/10/2017 Sick sinus syndrome 01/27/2014 Essential (primary) hypertension 02/25/2008 Presence of cardiac pacemaker 10/22/2006 Resolved Problems Problem Noted Date Diagnosed Date Resolved Date Pre-op testing 07/23/2022 07/23/2022 Booth's neuroma of right foot 01/07/2020 07/23/2022 Encounters Date Type Department Care Team Description 05/05/2025 Orders Only [facility] - GI [address] [facility] [place] [address] Estrella Quintanilla MD DAIVLA (nonalcoholic steatohepatitis) from Last 3 Months Social [...] 2024 ZOSTER VACCINE (1 of 2) 2024 DEPRESSION SCREENING 10/13/2024 COVID-19 VACCINE (1 - season) 2025 INFLUENZA VACCINE (#1) 2025 , 08/23/2022, 08/17/2019, [...] - 26 mg/dL 07/23/2022 1:51 PM CDT [facility] Creatinine 0.98(H) 0.56 - 0.96 mg/dL 07/23/2022 1:51 PM CDT [facility] Sodium 137 136 - 145 mmol/L 07/23/2022 1:51 PM [facility] Potassium 3.9 3.5 - 4.5 mmol/L 07/23/2022 1:51 PM [facility] Chloride 106 98 - 107 mmol/L 07/23/2022 1:51 PM [facility] CO2 23 22 - 29 mmol/L 07/23/2022 1:51 PM [facility] Glucose 92 70 - 115 mg/dL 07/23/2022 1:51 PM [facility] Calcium 8.5 8.4 - 10.2 mg/dL 07/23/2022 1:51 PM [facility] Protein Total 6.8 6.0 - 8.3 g/dL 07/23/2022 1:51 PM [facility] Albumin 3.7 3.4 - 5.0 g/dL 07/23/2022 1:51 PM [facility] Bilirubin Total 0.5 0.2 - 1.2 mg/dL 07/23/2022 1:51 PM [facility] Alkaline Phosphatase 91 40 - 150 U/L 07/23/2022 1:51 PM [facility] ALT 41 5 - 55 U/L 07/23/2022 1:51 PM [facility] AST 30 5 - 34 U/L 07/23/2022 1:51 PM [facility] Anion Gap 12 8 - 18 07/23/2022 1:51 PM [facility] BUN/Creatinine Ratio 11 7 - 23 07/23/2022 1:51 PM [facility] Osmolality Calculated 283 270 - 300 mOsm/kg 07/23/2022 1:51 PM [facility] Albumin/Globulin Ratio 1.2 1.1 - 2.3 07/23/2022 1:51 PM [facility] eGFR by CKD-EPI 71(L) >=90 mL/min/1.7 3 m2 07/23/2022 1:51 PM [facility] Blood BLOOD SPECIMEN / Unknown Venipuncture / Unknown 07/23/2022 1:16 PM CDT 07/23/2022 1:23 PM T us Mike Oh MD LAB - CHEMISTRY ORDERABLES Final Result [facility] [address] [place] [address], [facility] [phone] from Last 3 Months or Most Recently Relevant to Health Maintenance Care Teams Order Dispatcher Relationship Specialty Start Date End Date Hayley Fonseca APRN-CNP [address] [address] PCP - General 12/18/21
[2025-07-06 12:56] LABS: Add Urine Microscopic? YES; Appearance Urine Cloudy (Clear); Glucose Urine UA Negative (Negative); Leukocyte Esterase Ur 1+ LEU/UL (Negative); Nitrate Urine Negative (Negative); Specific Grav Ur 1.031 (1.001-1.035)
--- OUTSIDE RECORDS SUMMARY | 2025-07-06 13:12 | XMS_ITS | Clinical Summary ---
Author Organization [facility], Former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 Gender Identity Not on file Sexual Orientation [...] history exists Medical Devices Implanted Type Area Developer Automatic Device Identifier Shelf Expiration Date Model / Serial / Lot [employer] Cristóbal Stent Venous Wall [id number] - [id number] Implanted:Qty: 1 on 08/21/2023 by Finn Johnson MD at [facility] 07/29/2024 [id number] / / [id number] [employer] Cristóbal Stent Venous Wall [id number] - [id number] Implanted:Qty: 1 on 08/21/2023 by Finn Johnson MD at [facility] 10/22/2024 [id number] / / [id number] Insurance [facility] Advance Directives For more information, please contact: [phone] * Full Code (Latest Code Status on File) Date Activated Date Inactivated Comments 08/21/2023 2:40 PM 08/21/2023 8:52 PM * Full Code Date Activated Date Inactivated Comments 08/17/2019 9:45 AM 08/17/2019 2:34 PM Care Teams Child Monitor Relationship Specialty [place] [address] [address] PCP - General Family Medicine 03/23/24 [place] [address] [address] Consulting Physician Cardiology 08/17/19
--- OUTSIDE RECORDS SUMMARY | 2025-07-06 13:13 | XMS_ITS | Clinical Summary ---
Author Organization [facility] [employer] Address [address] [place] [address] Care Team Providers Care Superintendent General Name Role Phone Hayley Fonseca APRN-NATHANAEL Primary Care Provider [phone] Source Comments [facility] [employer],non-owned Affiliates and Associated Physician Practices is amultiple site organization consisting of ambulatory clinics and hospital sitesin [place], [place], [place] and [place]. This disclosure is being madepursuant to the Care Everywhere program and may not contain all information available regarding this patient. Last updated 18.[facility] [employer] Allergies Active Allergy Reactions Criticality Noted Date [...] Only [facility] [address] [place] [address] Estrella Quintanilla MD DAVILA (nonalcoholic steatohepatitis) from [...] - 26 mg/dL 07/23/2022 1:51 PM CDT [facility] Creatinine 0.98(H) 0.56 - 0.96 mg/dL 07/23/2022 1:51 PM CDT [facility] Sodium 137 136 - 145 mmol/L 07/23[facility]2022 [facility] Potassium 3.9 3.5 - 4.5 mmol/L 07/23/2022 1:[address] [facility] Chloride 106 98 - 107 mmol/L 07/23/2022 1:51 PM [facility] CO2 23 22 - 29 mmol/L 07/23/2022 1:51 PM [facility] Glucose 92 70 - 115 mg/dL 07/23/2022 1:51 PM [facility] Calcium 8.5 8.4 - 10.2 mg/dL 07/23/2022 1:51 PM [facility] Protein Total 6.8 6.0 - 8.3 g/dL 07/23/2022 1:51 PM [facility] Albumin 3.7 3.4 - 5.0 g/dL 07/23/2022 1:51 PM [facility] Bilirubin Total 0.5 0.2 - 1.2 mg/dL 07/23/2022 1:51 PM [facility] Alkaline Phosphatase 91 40 - 150 U/L 07/23/2022 1:51 PM [facility] ALT 41 5 - 55 U/L 07/23/2022 1:51 PM [facility] AST 30 5 - 34 U/L 07/23/2022 1:51 PM [facility] Anion Gap 12 8 - 18 07/23/2022 1:51 PM [facility] BUN/Creatinine Ratio 11 7 - 23 07/23/2022 1:51 PM [facility] Osmolality Calculated 283 270 - 300 mOsm/kg 07/23/2022 1:51 PM [facility] Albumin/Globulin Ratio 1.2 1.1 - 2.3 07/23/2022 1:51 PM [facility] eGFR by CKD-EPI 71(L) >=90 mL/min/1.7 3 m2 07/23/2022 1:51 PM [facility] Blood BLOOD SPECIMEN / Unknown Venipuncture / Unknown 07/23/2022 1:16 PM CDT 07/23/2022 1:23 PM T us Mike Oh MD LAB - CHEMISTRY ORDERABLES Final Result [facility] [address] [place] [address], [facility] [phone] from Last 3 Months or Most Recently Relevant to Health Maintenance Care Teams Superintendent General Relationship Specialty Start Date End Date Hayley Fonseca APRN-CNP [address] [phone] PCP - General 12/18/21
--- OUTSIDE RECORDS SUMMARY | 2025-07-06 13:13 | XMS_ITS | Clinical Summary ---
Author Organization [facility] Address [address] [place] [address] Phone Care Team Providers Care Emerging Solutions Executive Name Role Phone Minerva Richardson NP Primary [...] Device Data STL ABSTRACTION Provider, Abstract 05/26/2025 [facility] [place] [facility] [place] [address] [place] [address] Provider, Abstract wants appt 05/17/2025 External Device Data STL ABSTRACTION Provider, Abstract 05/02/2025 [facility] [place] [facility] [place] [address] [place] [address] Provider, Abstract new pt ppwk 04/27/2025 External Device Data STL ABSTRACTION Provider, Abstract 04/26/2025 External Device Data STL ABSTRACTION Provider, Abstract 04/26/2025 [facility] [place] [facility] [place] [address] [place] [address] Provider, Abstract new pt ppwk from Last 3 Months Family History Medical History Relation Name Comments Hypertension Brother 1 Prostate Cancer Brother 1 GERD Brother 2 Jose norma Migraines Brother 3 Jose Hypertension Father COPD Maternal Grandfather Abdiren kaba Breast Cancer Maternal Grandmother Ellen kaba [...] Comments Blood Pressure 107/78 11/21/2021 10:43 AM AUTOMATIC GRINDER OPERATOR Pulse 86 08/29/2021 2:41 PM AUTOMATIC GRINDER OPERATOR Temperature 36.8 C (98.2 F) 11/21/2021 10:43 AM AUTOMATIC GRINDER OPERATOR Respiratory Rate 16 07/09/2021 4:08 PM CDT Oxygen Saturation 95% 07/09/2021 4:08 PM CDT Inhaled Oxygen Concentration - - Weight 98.9 kg (218 lb) 11/21/2021 10:43 AM AUTOMATIC GRINDER OPERATOR Height 182.9 cm (6') 11/21/2021 10:43 AM AUTOMATIC GRINDER OPERATOR Body Mass Index 29.57 11/21/2021 10:43 AM AUTOMATIC GRINDER OPERATOR Plan of Treatment Upcoming Encounters Date Type Department Care Team (Late st Contact Info) Description 07/26/2025 11:00 AM CDT Office Visit [facility] [address] [place] [address] Edis Veronica MD [address] [address] [phone] (Work) Health Maintenance Due [...] 08/17/2019, 08/16/2019 Medical Devices Implanted Type Area Guitar Maker Hand Device Identifier Shelf Expiration Date Model / Serial / Lot Triad Cc Allograft Implanted:Qt y: 1 on 07/09/2021 by Edis Veronica MD at [facility] Bone N/A: Spine Cervical Anterior [employer] 11/08/2025 [id number] / [id number] / Hemostatic Surgiflo 8ml W/ Thrombin 2994 - Old - [id number] Implanted:Qt y: 1 on 07/09/2021 by Edis Veronica MD at [facility] Hemostatic N/A: Spine Cervical Anterior [employer] [id number] 11/12/2022 2994 / / [id number] Acp 1.6v, 42mm, 2 Level Plate Implanted:Qt y: 1 on 07/09/2021 by Edis Veronica MD at [facility] Plate N/A: Spine Cervical Anterior [employer] [id number] / LOAD 2 9 / STERILIZED 06-29-21 Description:All Nuvasive cer vical hardware was processed on requisition, [id number]. Acp Screw, 3.5 X 15 Mm Self Drilling Jailyn Implanted:Qt y: 6 on 07/09/2021 by Edis Veronica MD at [facility] Screw N/A: Spine Cervical Anterior [employer] [id number] / LOAD 2 / STERILIZED 06-29-21 Allograft Triad Cc Cerv [id number] - [id number] Implanted:Qt y: 1 on 07/09/2021 by Edis Veronica MD at [facility] Tissue N/A: Spine Cervical Anterior [employer] 01/28/2026 [id number] / [id number] / Pacemaker Insurance BS BLUE ACCESS/TRUE BLUE PPO RX [employer] Commercial RX [employer] RX Member Subscriber Plan / Payer ( fective 2025-Present) Name:Ruel Remedios Relation to Subscriber:Self Name:Remedios Lipscomb Subscriber ID:Not on file Payer ID:Not on file Group ID:[id number] Type:RX Commercial Address: [address] Teams Emerging Solutions Executive Relationship Specialty Start Date End Date Minerva Richardson NP PCP - General NURSE PRACTITIONER 12/27/20
--- NOTE | 2025-07-06 13:53 | ECG_ITS ---
Test Date: 2025-07-06 14:03:40 Measurements Intervals [place] Rate: 63 P: 48 WI: 181 QRS: 30 QRSD: 86 T: 19 QT: 411 QTc: 422 Interpretive Statements SINUS RHYTHM LOW QRS VOLTAGE OTHERWISE NORMAL ECG Compared to ECG 03/11/2025 10:42:37 No significant changes Electronically Signed On 07-07-2025 16:28:23 CDT by Kalen Carrillo M.D.
[2025-07-06 14:13] LABS: Hematocrit 45.1 % (37.0-47.0); Hemoglobin 15.5 g/dL (12.0-15.0); Immature Granulocyte Percent A 0.3 % (0-0.5); Lymphocytes Absolute Auto 1.96 K/mm3 (0.9-3.2); Mean Corpuscular HGB Conc 34.4 g/dl (32-36); Mean Corpuscular Hemoglobin 30.9 pg (26-34); Mean Corpuscular Volume 90.0 fl (80-100); Nucleated Red Blood Cells Absolute Auto 0.000 K/mm3 (0.0-0.012); Nucleated Red Blood Cells Perc 0.0 % (0.0-0.2); Platelet Count Result 273 k/mm3 (150-375); Red Blood Count 5.01 M/mm3 (4.2-5.4); White Blood Count 8.8 K/mm3 (4.5-10.0)
--- NOTE | 2025-07-06 14:18 | ED.GENADULT ---
HPI - General Adult General Chief complaint: Back Pain/Injury Stated complaint: plethora of complaints Time Seen by Provider: 07/06/25 12:53 History of Present Illness HPI narrative: This is a 50-year-old female presenting with fevers and urinary symptoms. Patient has been having urinary symptoms for the last 7 days. She was seen in urgent care on 07/01 and prescribed Keflex which she has taken. Her symptoms have not improved. Now she is having right-sided flank pain and right lower quadrant abdominal pain. She has also had a fever of 102 orally at home this morning. Patient has a history of kidney stones. Related Data Home Medications ?Medication ?Instructions ?Recorded ?Confirmed ?Last Taken ?Type duloxetine 60 mg capsule,delayed 60 mg PO DAILY 01/30/20 06/08/25 06/08/25 History release hydrochlorothiazide 25 mg tablet 25 mg PO DAILY 02/18/20 05/30/25 04/19/25 History metoprolol tartrate 50 mg tablet 50 mg PO Q12H 01/17/25 06/08/25 06/08/25 History bupropion HCl 100 mg tablet 100 mg PO BID 02/14/25 06/08/25 06/08/25 History Allergies Allergy/AdvReac Type Severity Reaction Status Date / Time Penicillins Allergy Intermediate Hives Verified 07/06/25 11:33 escitalopram (From Lexapro) Allergy Hives Verified 07/06/25 11:33 PMFSH Past Medical History Medical History Colon cancer screening Lupus [place] Nausea RUQ pain Vasovagal syncope Anxiety Hypertension Surgical History Surgical History History of tubal ligation S/P placement of cardiac pacemaker History of cholecystectomy Social History Social History Smoking packs per day: 0.5 Smoking cigarettes per day: 10.0 Years smoked: 10 Smoking pack-years: 5.00 Smoking status: Former smoker Tobacco type: cigarettes Smoking end date: 10/13/14 Alcohol intake: never Substance use: never Substance use type: does not use Do You Feel Safe in your Home?: Yes Lack of Transportation: No Lack of Food: Never True Current Housing: I Have Housing Concerned About Future Housing: YES Difficulty Paying Gas/Electric Bills: No Difficulty Paying for Meds: No Currently Unemployed: No Education: High School Diploma/GED Difficulty w/ Childcare or Family Care: No Living arrangements: with family Gender identity (if verbalized by the patient): Female Spiritual care concerns: No Exam Narrative: APPEARANCE: No apparent distress. Head: atraumatic. EYES: EOMI, NOSE: Atraumatic NECK: Trachea midline RESPIRATORY: No increased rate of breathing CTAB CARDIOVASCULAR: Tachycardic, no peripheral edema ABDOMINAL: Non-distended no guarding rebound, right CVA tenderness MUSCULOSKELETAl: No obvious deformities NEURO: Alert. Moving 4/4 extremities SKIN:: Warm to touch, focal exam of the face left leg did not reveal any erythema redness or signs of infection. PSYCHIATRIC: Normal affect Course Vital Signs Vital signs: Vital Signs Temperature 97.6 F 07/06/25 11:31 Pulse Rate 102 H 07/06/25 11:31 Respiratory Rate 16 07/06/25 11:31 Blood Pressure 154/100 H 07/06/25 11:31 Pulse Oximetry 94 07/06/25 11:31 Temperature 97.9 F 07/06/25 12:16 Pulse Rate 70 07/06/25 14:30 Respiratory Rate 13 07/06/25 14:30 Blood Pressure 144/105 H 07/06/25 14:30 Pulse Oximetry 95 07/06/25 14:[address] [facility] Narrative Medical decision making narrative: -Course: 50-year-old female presenting with 1 week of urinary symptoms. She underwent a course of Keflex but did not respond to treatment despite culture showing pansensitive E coli. CT abdomen pelvis ordered to due to right CVA tenderness and right lower quadrant discomfort. It showed a possible 3 mm stone at the UVJ. Also showed a 12 mm appendix without inflammatory changes. Given 7 day course of symptoms I think appendicitis is less likely. Patient is febrile at home, urine is indicative infection and she did not respond to outpatient treatment and has a possible stone on imaging. She will be started on ciprofloxacin IV. I discussed admission versus discharge with the patient as she is relatively young with minimal comorbidities, however patient is uncomfortable going home given how miserable she feels and that she did not respond to outpatient management. Patient will be admitted hospital for infected kidney stone. urology consulted. Patient is also complaining of pain to her face and left leg which I do not have a explanation for. -DDX includes but is not limited to: Viral syndrome, UTI/pyelo infected stone, appendicitis, colitis Vital Signs Vital Signs: Vital Signs Temperature 97.6 F 07/06/25 11:31 Pulse Rate 102 H 07/06/25 11:31 Respiratory Rate 16 07/06/25 11:31 Blood Pressure 154/100 H 07/06/25 11:31 Pulse Oximetry 94 07/06/25 11:31 Temperature 97.9 F 07/06/25 12:16 Pulse Rate 70 07/06/25 14:30 Respiratory Rate 13 07/06/25 14:30 Blood Pressure 144/105 H 07/06/25 14:30 Pulse Oximetry 95 07/06/25 14:30 Lab Data 07/06/25 14:04 07/06/25 14:04 Labs: Lab Results 07/06/25 07/06/25 Range/Units 12:25 14:04 WBC 8.8 (4.5-10.0) K/mm3 RBC 5.01 (4.2-5.4) M/mm3 Hgb 15.5 H (12.0-15.0) g/dL Hct 45.1 (37.0-47.0) % MCV 90.0 (80-100) fl MCH 30.9 (26-34) pg MCHC 34.4 (32-36) g/dl RDW 12.6 (11.5-14.5) % Plt Count 273 (150-375) k/mm3 MPV 9.3 (7.4-10.4) fl Immature Gran % (Auto) 0.3 (0-0.5) % Neut % (Auto) 67.1 (45.5-73.1) % Lymph % (Auto) 22.4 (18.3-44.2) % [place] % (Auto) 8.6 H (2.6-8.5) % Eos % (Auto) 1.3 (0-4.4) % Baso % (Auto) 0.3 (0.2-1.2) % Lymph # (Auto) 1.96 (0.9-3.2) K/mm3 [place] # (Auto) 0.8 H (0.1-0.6) K/mm3 Eos # (Auto) 0.1 (0-0.3) K/mm3 Baso # (Auto) 0.0 (0.0-0.1) K/mm3 Abs Immat Gran (auto) 0.03 (0.00-0.031) K/mm3 Absolute Neuts (auto) 5.9 (1.3-6.7) K/mm3 Absolute Nucleated RBC 0.000 (0.0-0.012) K/mm3 Nucleated RBC % 0.0 (0.0-0.2) % Sodium 138 (137-145) mmol/L Potassium 3.8 (3.4-5.0) mmol/L Chloride 106 (98-107) mmol/L Carbon Dioxide 23 (22-30) mmol/L Anion Gap 9 (4-12) mmol/L BUN 19 H (7-17) mg/dL Creatinine 1.00 (0.7-1.0) mg/dL Estim Creat Clear Calc 66 ml/min Estimated GFR 58 L (59 - ) Glucose 95 (65-110) mg/dL Calcium 9.2 (8.4-10.2) mg/dL Total Bilirubin 0.9 (0.2-1.3) mg/dL AST 32 (14-36) U/L ALT 26 (6-35) U/L Alkaline Phosphatase 81 (38-126) U/L Total Protein 7.9 (6.3-8.2) g/dL Albumin 4.3 (3.5-5.1) g/dL Lipase 57 (23-300) U/L Urine Color Dark yellow (Yellow) Urine Appearance Cloudy H (Clear) Urine pH 5.5 (5.0-9.0) Ur Specific [place] 1.031 (1.001-1.035) Urine Protein 1+ H (Negative) mg/dL Urine Glucose (UA) Negative (Negative) mg/dL Urine Ketones Trace H (Negative) mg/dL Ur Blood (Man) Negative (Negative) Urine Nitrate Negative (Negative) Urine Bilirubin Negative (Negative) Urine Urobilinogen 1.0 (<2.0) mg/dL Leukocyte Esterase Rfl 1+ H (Negative) LIANG/UL Urine RBC 6-10 H (0-2) /hpf Urine WBC 11-20 H (0-3) /hpf Ur Squamous Epith Cells Moderate (Few) /hpf Urine Bacteria 1+ H /hpf Urine Casts 6-10 Hyaline Casts Present (None) /lpf Influenza A (RT-PCR) Negative (Negative) Influenza B (RT-PCR) Negative (Negative) RSV (RT-PCR) Negative (Negative) SARS-CoV-2 RNA (RT-PCR) Negative (Negative) Discharge Plan Discharge Clinical Impression: Kidney stone, UTI (urinary tract infection) Patient Disposition: Home Condition: Stable Instructions: Antibiotic Form Patient Language: Mohawk Prescriptions: No Action metoprolol tartrate 50 mg tablet 50 mg PO Q12H cyclobenzaprine 10 mg tablet 10 mg PO TID PRN (Reason: muscle spasm) Qty: 20 0RF methocarbamol 750 mg tablet 750 mg PO Q8H PRN (Reason: muscle pain/spasm) Qty: 30 0RF cephalexin 500 mg capsule 500 mg PO Q6H 7 Days Qty: 28 0RF bupropion HCl 100 mg tablet 100 mg PO BID lidocaine [Lidoderm] 5 % adhesive patch,medicated 1 patch topical DAILY Qty: 15 0RF Rx Instructions: leave on most painful area for up to 12 hrs duloxetine 60 mg Capsule,Delayed Release(Dr/Ec) 60 mg PO DAILY hydrochlorothiazide 25 mg tablet 25 mg PO DAILY Follow-up/Referrals: Rafy,MD Aravind [Primary Care Provider, Unknown]
[2025-07-06 14:37] LABS: Alanine Aminotransferase 26 U/L (6-35); Albumin Level 4.3 g/dL (3.5-5.1); Alkaline Phosphatase 81 U/L (38-126); Anion Gap 9 mmol/L (4-12); Aspartate Amino Transferase 32 U/L (14-36); Bilirubin,Total 0.9 mg/dL (0.2-1.3); Blood Urea Nitrogen 19 mg/dL (7-17); Calcium 9.2 mg/dL (8.4-10.2); Carbon Dioxide 23 mmol/L (22-30); Chloride 106 mmol/L (98-107); Estimated CRCL calculation 66 ml/min; Estimated Glomerular Filt Rate 58; Glucose 95 mg/dL (65-110); Lipase 57 U/L (23-300); Potassium 3.8 mmol/L (3.4-5.0); Sodium 138 mmol/L (137-145); Total Protein 7.9 g/dL (6.3-8.2)
[2025-07-06] MEDS: KETOROLAC 15 MG/ML VIAL (*BKC) IV PUSH (14:38)
[2025-07-06] MEDS: ACETAMINOPHEN 500 MG TABLET 1000 MG PO (14:38)
[2025-07-06] MEDS: SODIUM CHLORIDE 0.9% IV 1,000 ML 999 ML IV CONT (14:39)
[2025-07-06 14:52] LABS: Influenza A QL RT-PCR Negative (Negative); Influenza B QL RT-PCR Negative (Negative); RSV RNA, RT-PCR Negative (Negative); SARS-CoV-2 RNA PCR Negative (Negative)
[2025-07-06] MEDS: levoFLOXacin 750 MG/D5W 150 ML 750 MG/150 ML BAG 100 MG IVPB (16:08)
[2025-07-06 16:21] LABS: Add Urine Microscopic? YES; Appearance Urine Clear (Clear); Glucose Urine UA Negative (Negative); Leukocyte Esterase Ur Negative LEU/UL (Negative); Need Manual Microscopic Reviewed; Nitrate Urine Positive (Negative); Non Pathogenic Casts 0-2; Specific Grav Ur > 1.045 (1.001-1.035)
[2025-07-06] MEDS: LACTATED RINGERS 2,000 ML 999 ML IV CONT (16:48)
--- NOTE | 2025-07-06 17:03 | PM.IMHP ---
H&P: HPI History of Present Illness Date/Time: 07/06/25 17:03 Chief Complaint: Fever, Back Pain Narrative: 50 y/o F with PMH of lupus, anxiety, and hypertension presents here with fever and back pain. The patient originally presented to [facility] on 07/01. At that time it she reported 3 day history of urinary frequency, malodorous urine, dysuria, and urgency. Patient also reported a subjective fever at that time for which she tried to treat with Tylenol with no improvement. Urine obtained at that time was consistent with a UTI. She was discharged home on cephalexin 500 mg q.6 hours x7 days. Now returning today (07/06) to [place] [facility] as she has continue to have urinary symptoms including urinary frequency, malodorous urine, dysuria, and urgency. Now also accompanied by right sided flank pain that radiates into her RLQ, sharp, constant in her abdomen and intermittent in her back. Movement worsens the pain and no improving factors. Also endorsing chills, body aches, and constipation. She is also reporting continued subjective fever with a max T at home of 102? F. She reports compliance with her previously prescribed antibiotic. She denies hematuria. Initial VS at presentation: 97.6? F, HR 102, R 16, 154/100, and 94% on RA. ED workup showed: No leukocytosis, hemoglobin 15.5, no significant electrolyte abnormalities, creatinine 1.0 and GFR 58, and UA remains consistent with UTI. Viral PCR negative. CXR showed no acute cardiopulmonary disease. CT of the abdomen/pelvis showed possible 3 mm distal right ureteral stone in the pelvis with no significant associated hydronephrosis, mildly prominent appendix measuring 12 mm with nose significant surrounding inflammation, nonobstructing bilateral nephrolithiasis. Review of Systems Review of Systems: All systems reviewed & are unremarkable except as noted in HPI and below [facility] Past Medical History Medical History Colon cancer screening Lupus [place] Vasovagal syncope Anxiety Hypertension Surgical History Surgical History History of vascular surgery stenting to bilateral lower extremities History of bilateral carpal tunnel release History of hysterectomy History of spinal surgery neck and back fusion History of tubal ligation S/P placement of cardiac pacemaker History of cholecystectomy Family History Family History (Updated 07/06/25 @ 18:44 by Macy Mendoza RN) Sibling Colon cancer Father Ocular melanoma Mother Diabetes mellitus Social History Social History Smoking packs per day: 0.5 Smoking cigarettes per day: 10.0 Years smoked: 10 Smoking pack-years: 5.00 Smoking status: Never smoker Tobacco type: cigarettes Second hand tobacco smoke exposure: No Smoking end date: 10/13/14 Alcohol intake: current Substance use: never Substance use type: does not use Last use: 05/13/25 Do You Feel Safe in your Home?: Yes Lack of Transportation: No Lack of Food: Never True Current Housing: I Have Housing Concerned About Future Housing: No Difficulty Paying Gas/Electric Bills: No Difficulty Paying for Meds: No Currently Unemployed: No Education: High School Diploma/GED Difficulty w/ Childcare or Family Care: No Living arrangements: with family Gender identity (if verbalized by the patient): Female Spiritual care concerns: No Meds Home Medications and Allergies Home Medications ?Medication ?Instructions ?Recorded ?Confirmed ?Type duloxetine 60 mg capsule,delayed 60 mg PO DAILY 01/30/20 07/06/25 History release hydrochlorothiazide 25 mg tablet 25 mg PO DAILY 02/18/20 07/06/25 History metoprolol tartrate 50 mg tablet 50 mg PO Q12H 01/17/25 07/06/25 History bupropion HCl 100 mg tablet 100 mg PO BID 02/14/25 07/06/25 History cyclobenzaprine 10 mg tablet 10 mg PO TID PRN muscle spasm #20 05/14/25 07/06/25 Rx tabs Allergies Allergy/AdvReac Type Severity Reaction Status Date / Time Penicillins Allergy Intermediate Hives Verified 07/06/25 18:45 escitalopram (From Lexapro) Allergy Hives Verified 07/06/25 18:45 Vital Signs Vital Signs - 24 hr 07/06/25 11:31 07/06/25 12:16 07/06/25 13:47 Temperature 97.6 F 97.9 F Pulse Rate 102 H 75 65 Respiratory Rate 16 19 17 Blood Pressure 154/100 H 153/104 H 159/106 H Pulse Oximetry 94 91 94 07/06/25 14:30 Temperature Pulse Rate 70 Respiratory Rate 13 Blood Pressure 144/105 H Pulse Oximetry 95 Exam Const: General: comfortable and no acute distress Other: , female, nontoxic appearance HENMT: Face/Nose/Sinus: Normal nares present Mouth: Yes moist mucous membranes Eyes: General: appearance normal, both eyes and all related structures Sclera: sclerae normal Pupils: Equal, round and reactive pupils present EOM: EOMs intact bilaterally Resp: Effort & Inspection: normal respiratory effort Auscultation: clear to auscultation bilaterally Cardio: Rate: regular rate Rhythm: regular rhythm Other: S1-S2 present without murmur, rub, ectopy GI: Other: Abdomen soft, nondistended, nontender. Normoactive bowel sounds in all quadrants. : Other: Bilateral CVA tenderness Skin: General skin exam: normal color and no rashes or lesions noted Wounds: no wounds Neuro: Speech: normal speech Motor exam (neuro): 5/5 motor strength present throughout Sensory Exam: normal sensation Other: A&O x4 Extrem: General: normal to inspection Psych: Mental Status: mental status grossly normal Affect: normal affect Other: Good insight and judgment, pleasant H&P: Results Labs Labs: Short CBC 07/06/25 Range/Units 14:04 WBC 8.8 (4.5-10.0) K/mm3 Hgb 15.5 H (12.0-15.0) g/dL Hct 45.1 (37.0-47.0) % Plt Count 273 (150-375) k/mm3 BMP 07/06/25 14:04 Sodium 138 Potassium 3.8 Chloride 106 Carbon Dioxide 23 BUN 19 H Creatinine 1.00 Glucose 95 Calcium 9.2 Liver Function 07/06/25 Range/Units 14:04 Total Bilirubin 0.9 (0.2-1.3) mg/dL AST 32 (14-36) U/L ALT 26 (6-35) U/L Alkaline Phosphatase 81 (38-126) U/L Albumin 4.3 (3.5-5.1) g/dL Urine 07/06/25 07/06/25 Range/Units 12:25 15:55 Urine Color Dark yellow Yellow (Yellow) Urine Appearance Cloudy H Clear (Clear) Urine pH 5.5 7.0 (5.0-9.0) Ur Specific [place] 1.031 > 1.045 H (1.001-1.035) Urine Protein 1+ H Trace (Negative) mg/dL Urine Glucose (UA) Negative Negative (Negative) mg/dL Assessment and Plan Assessment and plan (1) UTI (urinary tract infection): Qualifiers: Hematuria presence: without hematuria Urinary tract infection type: acute cystitis Qualified Code(s): N30.00 - Acute cystitis without hematuria Code(s): N39.0 - Urinary tract infection, site not specified Status: Acute Assessment and Plan: Diagnosed with a UTI on 07/01. Started on Keflex p.o. outpatient. Despite compliance with antibiotics the patient continues to have urinary symptoms and subjective fever with a max T at home of 102? F. Urine culture from 07/01 showed pansensitive E coli. Currently complicated by a kidney stones, nonobstructing. - did not meet SIRS criteria - UA: High specific gravity, positive nitrates, 21-50 WBC, 1+ bacteria, use the ileal cells with straight catheterization - UC pending - reviewed previous micro, no resistances noted - started on Levaquin on 07/06 (2) Kidney stone: Code(s): N20.0 - Calculus of kidney Status: Acute Assessment and Plan: Patient is reporting back pain, related to kidney stones noted on CT? - CT abd/pelvis: 1. Possible 3 mm distal right ureteral stone in the pelvis. No significant associated hydronephrosis. 2: Mildly prominent appendix measuring 12 mm axially. No significant surrounding inflammation. 3: Nonobstructing bilateral nephrolithiasis. - strain all urine - analgesics p.r.n.: Tylenol, Dougherty, morphine - urology consulted (3) Hypertension: Qualifiers: Hypertension type: primary hypertension Qualified Code(s): I10 - Essential (primary) hypertension Code(s): I10 - Essential (primary) hypertension Status: Chronic Assessment and Plan: - chronic, currently 144/105. elevated secondary to pain? - continue home medications: HCTZ, metoprolol - monitor Plan Diet: Heart healthy GI Prophylaxis: N/a DVT Prophylaxis: SCDs IV fluids: 2L bolus Lines/Tubes: Peripheral IV Code Status: Full code Quality VTE Prophylaxis VTE prophylaxis: mechanical ordered Hospitalist MIPS Advance Care Plan I have confirmed that the patient's Advanced Care Plan is present, code status is documented, or surrogate decision maker is listed in patient medical record.: Yes Medication Reconciliation I have utilized all available resources to obtain, update and review the patients current medications (includes all prescriptions, OTC, herbals, cannabis, and nutritional supplements).: Yes
--- OUTSIDE RECORDS SUMMARY | 2025-07-06 18:00 | XMS_ITS | Data Portability ---
Author Organization [place] [facility], [facility] - IP Address [address] [place] [address] Assessment No assessment recorded. Plan of Treatment Reminders Order Date Submit Date Provider Last Modified By Organization Details Last Modified Time Details Appointments None recorded. Lab wet mount 2021 022 [email or web address] Main Office, [address] [place], [address], 2 14:22:05 CBC w/ auto diff 2020 021 FORTUNA [facility] ([place]), [address] [place], [address], 1 05:09:03 TSH, ultra-sens itive, serum 2020 021 FORTUNA [facility] ([place]), [address] [place], [address], 1 05:09:03 pap, IG + HR HPV 2020 021 FORTUNA [facility] ([place]), [address] [place], [address], 1 11:09:20 Referral None recorded. Procedures None recorded. Surgeries None recorded. Imaging MAMMO, screening, digital, bilateral [address] [facility] ([facility]), [address] [place], [address], 12:04:43 Medication Orders metronidaz ole 500 mg tablet 2021 022 IRAIDA [facility][id number], [address], [place], [place], [id number], 14:22:15 Aygestin 5 mg tablet 2020 021 [email or web address] [facility] #[id number], [address], [place], [place], [id number], 14:50:45 Patient TargetsNo targets recorded. Patient Instructions Encounter Date Encounter Id Patient Instructions Last Modified By Organization Details Last Modified Time 10/01/2021 [id number] breast self-exam : care instructions [email or web address] Not available 10/01/2021 11:24:30 A healthy lifestyle: care instructions [email or web address] Not available 10/01/2021 11:24:30 continue exercise [id number] Not avai lable 10/01/2021 11:24:29 calcium and vitamin D combination [email or web address] Not available 10/01/2021 11:24:29 mammogram screening patient instructions [email or web address] Not available 10/01/2021 11:24:29 11/20/2021 [id number] endometriosis: care instructions [id number] Not available 11/20/2021 10:10:52 abnormal uterine bleeding: care instructions [email or web address] Not available 11/20/2021 10:10:52 Vaginal Bleeding (Nonpregnancy): Care Instructions [email or web address] Not available 11/20/2021 10:10:52 01/14/2022 [id number] endometriosis: care instructions [id number] Not available 01/14/2022 15:10:15 02/14/2022 [id number] bacterial vaginosis: care instructions Not available 02/14/2022 14:22:05 vaginitis education [id number] Not available 02/14/2022 14:22:05 endometriosis: care instructions [id number] Not available 02/14/2022 14:22:05 Reason for Referral None Reported. Results Created Date Observation Date Name Description Value Unit Range Abnormal Flag Note LastModifiedBy Organization Detail LastModifiedTime 10/01/20 21 10/02/2021 CBC WITH DIFFE RENTI AL/PL ATELE T WBC 8.4 x10e3 /uL 3.4-10 .8 Not Available [facility] ([facility]) [address], [place], [address], 10/02/2021 05:09:00 10/01/20 21 10/02/2021 CBC WITH DIFFE RENTI AL/PL ATELE T RBC 4.73 x10e6 /uL 3.77-5 .28 Not Available [facility] ([facility]) [address] [place], [address], 10/02/2021 05:09:00 10/01/20 21 10/02/2021 CBC WITH DIFFE RENTI AL/PL ATELE T hemoglobin 14.1 g/dL 11.1-1 5.9 Not Available [facility] ([facility]) [address] [place], [address], 10/02/2021 05:09:00 10/01/20 21 10/02/2021 CBC WITH DIFFE RENTI AL/PL ATELE T hematocrit 41.0 % 34.0-4 6.6 Not Available [facility] ([facility]) [address] [place], [address], 10/02/2021 05:09:00 10/01/20 21 10/02/2021 CBC WITH DIFFE RENTI AL/PL ATELE T MCV 87 fL 79-97 Not Available [facility] ([facility]) [address] [place], [address], 10/02/2021 05:09:00 10/01/20 21 10/02/2021 CBC WITH DIFFE RENTI AL/PL ATELE T MCH 29.8 pg 26.6-3 3.0 Not Available [facility] ([facility]) [address] [place], [address], 10/02/2021 05:09:00 10/01/20 21 10/02/2021 CBC WITH DIFFE RENTI AL/PL ATELE T MCHC 34.4 g/dL 31.5-3 5.7 Not Available [facility] ([facility]) [address], [place], [address], 10/02/2021 05:09:00 10/01/20 21 10/02/2021 CBC WITH DIFFE RENTI AL/PL ATELE T RDW 13.3 % 11.7-1 5.4 Not Available [facility] ([facility]) [address], [place], [address], 10/02/2021 05:09:00 10/01/20 21 10/02/2021 CBC WITH DIFFE RENTI AL/PL ATELE T platelets 305 x10e3 /uL 150-45 0 Not Available [facility] ([facility]) [address], [place], [address], 10/02/2021 05:09:00 10/01/20 21 10/02/2021 CBC WITH DIFFE RENTI AL/PL ATELE T neutrophils 68 % not estab. Not Available [facility] ([facility]) [address], [place], [address], 10/02/2021 05:09:00 10/01/2010/02/2021 CBC WITH DIFFE RENTI AL/PL ATELE T lymphs 21 % not estab. Not Available [facility] ([facility]) [address], [place], [address], 10/02/2021 05:09:00 10/01/20 21 10/02/2021 CBC WITH DIFFE RENTI AL/PL ATELE T monocytes 7 % not estab. Not Available [facility] ([facility]) [address], [place], [address], 10/02/2021 05:09:00 10/01/20 21 10/02/2021 CBC WITH DIFFE RENTI AL/PL ATELE T eos 2 % not estab. Not Available [facility] ([facility]) [address], [place], [address], 10/02/2021 05:09:00 10/01/20 21 10/02/2021 CBC WITH DIFFE RENTI AL/PL ATELE T basos 1 % not estab. Not Available [facility] ([facility]) [address], [place], [address], 10/02/2021 05:09:00 10/01/2010/02/2021 CBC WITH DIFFE RENTI AL/PL ATELE T immature cells [employer]IVE Not Available [facility] ([facility]) [address], [place], [address], 10/02/2021 05:09:00 10/01/20 21 10/02/2021 CBC WITH DIFFE RENTI AL/PL ATELE T neutrophils (absolute) 5.8 x10e3 /uL 1.4-7. 0 Not Available [facility] ([facility]) [address] [place], [address], 10/02/2021 05:09:00 10/01/20 21 10/02/2021 CBC WITH DIFFE RENTI AL/PL ATELE T lymphs (absolute) 1.7 x10e3 /uL 0.7-3. 1 Not Available [facility] ([facility]) [address] [place], [address], 10/02/2021 05:09:00 10/01/20 21 10/02/2021 CBC WITH DIFFE RENTI AL/PL ATELE T monocytes(ab solute) 0.6 x10e3 /uL 0.1-0. 9 Not Available [facility] ([facility]) [address] [place], [address], 10/02/2021 05:09:00 10/01/20 21 10/02/2021 CBC WITH DIFFE RENTI AL/PL ATELE T eos (absolute) 0.1 x10e3 /uL 0.0-0. 4 Not Available [facility] ([facility]) [address], [place], [address], 10/02/2021 05:09:00 10/01/20 21 10/02/2021 CBC WITH DIFFE RENTI AL/PL ATELE T baso (absolute) 0.0 x10e3 /uL 0.0-0. 2 Not Available [facility] ([facility]) [address], [place], [address], 10/02/2021 05:09:00 10/01/20 21 10/02/2021 CBC WITH DIFFE RENTI AL/PL ATELE T immature granulocytes 1 % not estab. Not Available [facility] ([facility]) [address], [place], [address], 10/02/2021 05:09:00 10/01/20 21 10/02/2021 CBC WITH DIFFE RENTI AL/PL ATELE T immature grans (abs) 0.0 x10e3 /uL 0.0-0. 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 Speci men is hemol yzed. Unabl e to obtai n valid resul ts. Not Available [facility] ([facility]) [address], [place], [address], 10/09/2021 11:09:20 10/01/20 21 10/03/2021 IGP, RANDALL HPV16 /18 HPV 16 TNP Test not perfo rmed. Speci men is hemol yzed. Unabl e to obtai n valid resul ts. Not Available [facility] ([facility]) [address], [place], [address], 10/09/2021 11:09:20 10/01/2010/03/2021 IGP, RANDALL HPV16 /18 HPV 18 TNP Test not perfo rmed. Speci men is hemol yzed. Unabl e to obtai n valid resul ts. This nucle ic acid ampli ficat ion test detec ts fourt een high- risk HPV types : HPV16 , HPV18 and twelv e other high- risk types (31,3 3,35, 39,45 ,51,5 2,56, 58,59 ,66,6 8) witho ut diffe renti ation . Not Available [facility] ([facility]) [address], [place], [address], 10/09/2021 11:09:20 10/01/2010/09/2021 IGP, RANDALL HPV16 /18 diagnosis: Commen t NEGAT DANIEL FOR INTRA EPITH ELIAL LESIO N OR MALIG EPHRAIM . SPECI MEN REPRO CESSE D FOR INTER PRETA TION USING GLACI AL ACETI C ACID (GAA) . Not Available [facility] ([facility]) [address], [place], [address], 10/09/2021 11:09:20 10/01/20 21 10/09/2021 IGP, RANDALL HPV16 /18 specimen adequacy: Mayelin albrecht Satis facto ry for evalu ation . Endoc ervic al and/o r squam ous metap lasti c cells (endo cervi nayla compo nent) are prese nt. Not Available [facility] ([facility]) [address] [place], [address], 10/09/2021 11:09:20 10/01/20 21 10/09/2021 IGP, RANDALL HPV16 /18 clinician provided ICD10: Mayelin albrecht Z12.4 N92.1 Not Available [facility] ([facility]) [address] [place], [address], 10/09/2021 11:09:20 10/01/20 21 10/09/2021 IGP, RANDALL HPV16 /18 performed by: Julio Monsalve (ASCP ) Not Available [facility] ([facility]) [address] [place], [address], 10/09/2021 11:09:20 10/01/20 21 10/09/2021 IGP, RANDALL HPV16 /18 . . Not Available [facility] ([facility]) [address] [place], [address], 10/09/2021 11:09:20 10/01/20 21 10/09/2021 IGP, RANDALL HPV16 /18 note: Mayelin albrecht The Pap smear is a scree perico test desig abiola to aid in the detec tion of bonifacio ligna nt and malig nant condi tions of the uteri ne cervi x. It is not a diagn ostic proce dure and shorodrigo d not be used as the sole means of detec ting cervi nayla cance r. Both false -posi tive and false -nega tive repor ts do occur . Not Available [facility] ([facility]) [address], [place], [address], 10/09/2021 11:09:20 10/01/20 21 10/09/2021 IGP, RANDALL HPV16 /18 test methodology: Commen t This liqui d based ThinP rep(R ) pap test was scree abiola with the use of an image guide klarissa srivastava. Not Available [facility] ([facility]) [address], [place], [address], 10/09/2021 11:09:20 10/01/20 21 10/03/[address] PROBL EM request problem TNP Test not perfo rmed. Speci men is hemol yzed. Unabl e to obtai n valid resul ts. TEST: 93303 6 HPV other hr types Panel : 0 04112 7 HPV 16 Panel : 0 05103 8 HPV 18 Panel : 0 Not Available [facility] ([facility]) [address], [place], [address], 10/09/2021 11:09:21 02/15/20 22 02/14/2022 wet mount Clue Cells positi ve Not Available Main Office [address], [place], [address], 02/14/2022 14:21:30 02/15/20 22 02/14/2022 wet mount WBC positi ve Not Available Main Office [address], [place], [address], 02/14/2022 14:21:30 10/29/19 22 10/21/2021 US, trans vagin al No observ ation record ed. [email or web address] [place] [address] [address], [place], [address], 10/29/2021 17:06:18 Result Notes None recorded. Problems Name Problem SNOMED Code Status Onset Date Resolution Date Notes Provider Name and Address Organization Details Recorded Time Cardiac pacemaker in situ 281752622 Active 2013 Rocío dimas [place] [facility] 1 10:33:08 Hypertens daniel disorder 31590382 Active 2015 Dinora albrecht, DO [address] [place], [address], [place] [facility] 1 11:19:42 Uterus bilocular is 37988344 Completed 201501/14/2022 Problem descript ion: Septate uterus Removal Reason: courtney Dinora albrecht, DO [address] [place], [address], [place] [facility] 2 15:05:18 Dysfuncti onal uterine bleeding Completed 201501/14/2022 Removal Reason: courtney Dinora albrecht, DO [address] [place], [address], [place] [facility] 2 15:04:55 Endometri osis of uterus 43770698 Completed 201601/14/2022 HDC/ALC Removal Reason: courtney albrecht, DO [address] [facility] [address] [facility] [address] [place], [place] [address] [place], [place], [address], [place] [facility] 2 15:05:04 Kidney stone 45831757 Completed 202012/05/2021 Dinora albrecht, DO [address] [facility] [address] [facility] [address] [place], [place] [address] [place], [place], [address], [place] [facility] 2 15:16:54 Depressiv e disorder 98877186 Active 2020 Rocío dimas [place] [facility] 1 10:37:16 Menometro rrhagia 640989194 Completed 202001/14/2022 Removal Reason: courtney Farias Jace Pierson trena, DO [address] [facility] [address] [place], [place], [address], [place] [facility] 2 15:05:13 COVID-19 167256189 Active 2021 Dinora Jace albrecht, DO [address] [place], [place], [address], [place] [facility] 2 10:12:05 Bicornuat e uterus 17402188 Completed 202101/14/2022 Removal Reason: courtney Farias Jace Pierson trena, DO [address] [facility] [address] [facility] [address] [facility] [place], [address], [place] [facility] 2 15:04:50 Endometri osis (clinical ) 533810391 Active 2021 stage 1 at [facility], BS left pelvis Dinora albrecht, DO [address] [place], [place], [address], [place] [facility] 2 15:09:37 Bacterial vaginosis 853761716 Active 2021 Dinora albrecht, DO [address] [facility] [address] [facility] [address] [facility] [place], [address], [place] [facility] 2 14:21:31 Notes:Some problems listed i n Documents: #[id number], #[id number] could not be added to this patient's chart. Please review these documents and add these problems to the patient's chart manually as needed. Problem Notes None recorded. Procedures Surgical History Date Name Laterality Status Provider Name and Address Organization Details Recorded Time 01/01/20 22 laparoscopic-assist ed vaginal hysterectomy completed Dinora Thrasher, DO [address] [facility] [address] [facility] [place], [address], [place] [facility] 12/31/2021 14:38:13 11/23/19 22 Hysteroscopy, D&C completed Dinora Thrasher, [address] [place], [address], [place] [facility] 11/26/2021 09:30:09 10/01/20 21 Date of Last Pap Smear completed Dinora Thrasher [address] [place], [address], [place] [facility] 10/01/2021 11:22:31 10/13/19 21 extracorporeal shockwave lithotripsy of calculus of kidney completed Dinora Thrasher [address] [place], [address], [place] [facility] 12/05/2021 15:11:41 10/13/19 18 cholecystectomy completed Dinora Thrasher [address] [place], [address], [place] [facility] 10/01/2021 10:45:54 05/19/20 17 hysteroscopy with biopsy completed Dinora Thrasher [address] [place], [address], [place] [facility] 10/01/2021 10:48:15 10/13/19 14 cardiac pacemaker procedure completed Dinora Thrasher [address] [place], [address], [place] [facility] 10/01/2021 10:45:45 ligation of bilateral fallopian tubes completed Dinora Thrasher [address] [facility] [place], [address], [place] [facility] 12/31/2021 10:18:58 Imaging Results None recorded. Procedure Notes None recorded. Medical Equipment None Reported. Allergies Allergen ID Allergen Name Allergen Category Reaction Reaction Severity Criticality Documentation Date Start Date Code Code System Note Provider Name and Address Organization Details Recorded Time 30424 Product containin g penicilli n (product) medicatio n Not available Not available Not available 10/01/2021 59742 8001 SNOMED GENE [facility] 10:32:22 Medications Name Sig Start Date Stop Date Status Note LastModified by Organization Details LastModified Time cyclobenzap rine 10 mg tablet TAKE 1 TABLET BY MOUTH EVERY 8 HOURS 10/01 completed Not Available Not Available Not Available medroxyprog esterone 10 mg tablet TAKE 1 TABLET BY MOUTH EVERY DAY 10/01 completed Not Available Not Available Not Available bupropion HCl SR 150 mg tablet,12 hr sustained-r elease TAKE 1 TABLET BY MOUTH TWICE DAILY active Not Available Not Available No t Available potassium chloride ER 10 mEq capsule,ext ended release 01/14 completed Not Available Not Available Not Available acetaminoph en 325 mg tablet TAKE 2 TABLETS BY MOUTH EVERY 6 HOURS TAKE FOR 7 DAYS AND THEN NEEDED FOR PAIN 02/14 completed Not Available Not Available Not Available atorvastati n 20 mg tablet TAKE 1 TABLET BY MOUTH EVERY DAY 10/01 completed Not Available Not Available Not Available atorvastati n 10 mg tablet TAKE 1 TABLET BY MOUTH EVERY DAY active Not Available Not Available No t Available azithromyci n 250 mg tablet TAKE DIRECTED 12/19 completed Not Available Not Available Not Available hydrocodone 5 mg-acetamin ophen 325 mg tablet TAKE 1 TABLET BY MOUTH EVERY 6 HOURS NEEDED FOR PAIN CONTROL 10/01 completed Not Available Not Available Not Available meloxicam 15 mg tablet 02/14 completed Not Available Not Available Not Available metoprolol succinate ER 200 mg tablet,exte nded release 24 hr TAKE 1 TABLET BY MOUTH EVERY DAY active Not Available Not Available No t Available ondansetron HCl 4 mg tablet TAKE 1 TABLET BY MOUTH EVERY 6 HOURS NEEDED FOR NAUSEA 10/01 completed Not Available Not Available Not Available prednisone 20 mg tablet TAKE 3 TABLETS BY MOUTH ONE TIME PER DAY FOR 5 DAYS 10/01 completed Not Available Not Available Not Available metoprolol succinate ER 100 mg tablet,exte nded release 24 hr TAKE 1 TABLET BY MOUTH EVERY DAY 10/01 completed Not Available Not Available Not Available metronidazo le 500 mg tablet Take 1 tablet twice a day by oral route for 7 days. active Not Available Not Available No t Available omeprazole 40 mg capsule,del ayed release TAKE 1 CAPSULE BY MOUTH DAILY active Not Available Not Available No t Available tramadol 50 mg tablet TAKE 1 TABLET BY MOUTH EVERY 6 HOURS NEEDED FOR PAIN OR CRAMPING 01/14 completed Not Available Not Available Not Available triamcinolo ne acetonide 0.1 % topical cream APPLY THIN LAYER TOPICALLY TO THE AFFECTED AREA TWICE DAILY NEEDED 02/14 completed Not Available Not Available Not Available ketorolac 10 mg tablet TAKE 1 TABLET BY MOUTH EVERY 6 HOURS FOR 5 DAYS 10/01 completed Not Available Not Available Not Available alprazolam 0.25 mg tablet TAKE 1 TABLET BY MOUTH AT BEDTIME NEEDED 10/01 completed Not Available Not Available Not Available methocarbam ol 750 mg tablet TAKE 1 TABLET BY MOUTH THREE TIMES DAILY NEEDED 10/01 completed Not Available Not Available Not Available tamsulosin 0.4 mg capsule TAKE 1 CAPSULE BY MOUTH AT BEDTIME 10/01 completed Not Available Not Available Not Available diazepam 2 mg tablet TAKE 1 TABLET BY MOUTH EVERY 8 HOURS NEEDED FOR PAIN AND MUSCLE SPASMS 10/01 completed Not Available Not Available Not Available doxycycline monohydrate 100 mg capsule TAKE ONE CAPSULE BY MOUTH EVERY 12 HOURS FOR 10 DAYS 10/01 completed Not Available Not Available Not Available tobramycin 0.3 % eye drops INSTILL 2 DROPS IN THE LEFT EYE EVERY 4 HOURS . 10/01 completed Not Available Not Available Not Available Advair Diskus 250 mcg-50 mcg/dose powder for inhalation INHALE 1 PUFF BY MOUTH TWICE DAILY active Not Available Not Available No t Available docusate sodium 100 mg capsule TAKE ONE CAPSULE BY MOUTH TWICE DAILY 01/14 completed Not Available Not Available Not Available montelukast 10 mg tablet TAKE 1 TABLET BY MOUTH EVERY DAY active Not Available Not Available No t Available hydrochloro thiazide 25 mg tablet Take 1 tablet every day by oral route. active Not Available Not Available No t Available mupirocin 2 % topical ointment APPLY EXTERNALL Y TO THE AFFECTED AREA EVERY 8 HOURS 10/01 completed Not Available Not Available Not Available norethindro ne acetate 5 mg tablet TAKE 2 TABLETS BY MOUTH EVERY DAY 01/14 completed Not Available Not Available Not Available ibuprofen 600 mg tablet TAKE 1 TABLET BY MOUTH FOUR TIMES DAILY NEEDED FOR PAIN TAKE FOR 7 DAYS AND THEN NEEDED FOR PAIN 02/14 completed Not Available Not Available Not Available methylpredn isolone 4 mg tablets in a dose pack FOLLOW PACKAGE DIRECTION S 01/14 completed Not Available Not Available Not Available albuterol sulfate HFA 90 mcg/actuati on aerosol inhaler INHALE 2 PUFFS BY MOUTH EVERY 4 HOURS NEEDED FOR WHEEZING OR SHORTNESS OF BREATH active Not Available Not Available No t Available naproxen 500 mg tablet TAKE 1 TABLET BY MOUTH TWICE DAILY 10/01 completed Not Available Not Available Not Available oxycodone 5 mg tablet TAKE 1 TABLET BY MOUTH EVERY 4 HOURS NEEDED FOR PAIN 01/14 completed Not Available Not Available Not Available nitrofurant oin monohydrate /macrocryst als 100 mg capsule TAKE 1 CAPSULE BY MOUTH EVERY 12 HOURS FOR 5 DAYS 02/14 completed Not Available Not Available Not Available duloxetine 60 mg capsule,del ayed release TAKE 1 CAPSULE BY MOUTH EVERY DAY DIRECTED 02/14 completed Not Available Not Available Not Available lisinopril 10/01 completed Not Available Not Available Not Available aripiprazol e 2 mg tablet TAKE 1 TABLET BY MOUTH EVERY DAY AT BEDTIME 10/01 completed Not Available Not Available Not Available Symbicort 160 mcg-4.5 mcg/actuati on HFA aerosol inhaler active Not Available Not Available Not Available Vitals Date Recorded Body height Body mass index (BMI) Body weight Systolic And Diastolic Provider Name and Address Organization Details Last Updated DateTime 11/20/2021 180.34 cm 30.4 kg/m2 92664.86 g 150/96 mm[Hg] Rocío Gillespie In [facility] 11/20/2021 09:41:02 Date Recorded Body height Body mass index (BMI) Body weight Systolic And Diastolic Provider Name and Address Organization Details Last Updated DateTime 01/14/2022 180.34 cm 29.9 kg/m2 99816.2 g 160/100 mm[Hg] Rocío Gillespie In [facility] 01/14/2022 14:50:02 Date Recorded Body height Body mass index (BMI) Body weight Systolic And Diastolic Provider Name and Address Organization Details Last Updated DateTime 02/14/2022 180.34 cm 30.1 kg/m2 91898.95 g 130/84 mm[Hg] Rocío Gillespie In [facility] 02/14/2022 14:08:55 Date Recorded Body height Body mass index (BMI) Body weight Systolic And Diastolic Provider Name and Address Organization Details Last Updated DateTime 10/01/2021 180.34 cm 31.2 kg/m2 535724.54 g 180/122 mm[Hg] Rocío Gillespie In [facility] 10/01/2021 11:08:36 Social History Question Answer Notes LastModified by Organizat ion Details LastModified Time Tobacco Smoking Status Former Smoker GENE Garcia In [facility] 10/01/2021 10:13:15 What Is Your Level Of Caffeine Consumption? Occasional Soda Information not available 10/01/2021 Who Is Your Employer? [employer] [email or web address] Information not available 10/01/2021 What Is Your Relationship Status? [email or web address] Information not available 10/01/2021 Sex: Unknown Functional Status Question Answer Note LastModified by Organization D etails LastModified Time What is your level of alcohol consumption? None [email or web address] Information not available 10/01/2021 Are you currently employed? 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 Family History Relationship Description Onset Age of this Age Resolved Age Notes LastModified by Organization Details LastModified Time Brother Malignant tumor of colon 30 DX 30, A&W [email or web address] Not available 10/01/2021 11:20:41 Father Hypertensive disorder [email or web address] Not available 2020 10:03:34 Mother Hypertensive disorder Not available 2020 10:03:34 Mother Varicose ulcer of lower extremity [email or web address] Not available 2020 10:12:06 Paternal Grandmother Cerebrovascu lar accident 55 [email or web address] Not available 10:03:59 Paternal Grandmother Malignant neoplasm of uterus 72 [email or web address] Not available 2020 10:04:18 Medical History No medical history recorded. Gynecological History Statement/Question Response Abnormal Pap N Flow Heavy Date of LMP 11/16/2021 STIs/STDs N HPV Vaccine N Duration of Flow (days) 4 Age at Menarche 10 Current Control Method Hysterectom y Sexually Active? Y Date of Last Pap Smear 10/01/2021 Sexual Problems? N Obstetrics History GPAL:G 3 P 2 0 1 2 Type Value Full Term 2 Spontaneous 1 Living 2 Total 3 Past Encounters Encounter ID Performer Location Encounter Start Date Encounter Closed Date Diagnosis/Indication Diagnosis SNOMED-CT Code Diagnosis ICD10 Code Diagnosis IMO Codes Diagnosis Note [id number] Dinora Thrasher , DO Main Office [address] [place] [address] 10/01/2021 10:20:03 10/01/2021 13:56:54 Gynecologic examination 03409271 Z01.419 Screening for malignant neoplasm of cervix 950778243 Z12.4 CALL OFFICE IN 4 WEEKS following pap for results if you hasn't heard from us Followup for WW or sooner as needed Screening for malignant neoplasm of breast 550691344 Z12.31 Menometrorrhagia 8415997 08 N92.1 HEAVY-MENS ES-PROGEST ERONE-WITH -TAPEROffe red following1 . NSAIDs, Naprosyn or Ibuprofen Day 1-3 of cycle2. Hormones daily3. Lysteda 6 large pills for 5 days of cycleRevie wed risks and benefits for allWishes to try PROGESTERO NE FOR HEAVY MENSES. When menses are gone for 2 months, consider take one pill daily. If bleeding restarts then take 2 pills dailyIF BLEEDING CONTINUES WITH PROGESTERO NE, PLEASE SCHEDULE ULTRASOUND IN OFFICE Uterine adenomyosis 7843 30847 N80.0 suspect source of bleeding. 1. Nothing (nope) 2. Hormones- 3. ORILISSA- INFO GIVEN/4. LUPRON shut it down 5. Hysterecto my withOUT removal of ovaries- [id number] Dinora Thrasher , DO Main Office [address] [place] [address] 11/20/2021 09:10:38 11/20/2021 14:10:15 Dysfunctional uterine bleeding 65776613 N93.9 Menometrorrhagia 2302996 08 N92.1 OPTIONS FOR HEAVY MENSES1. NSAIDs, Naprosyn or Ibuprofen Day 1-3 of cycle-DID NOT WORK2. Hormones daily--DID NOT WORK3. HYSTEROSCO PY, D&C--->05/14 017, if pathology is normal, then---->4 . NOVASURE ABLATION- NOT WITH ADENOMYOSI S OR BICORNUATE UTERUS5. FINALLY BIG SURGERIES LIKE HYSTERECTO MY----LAPA ROSCOPIC ASSISTED VAGINAL HYSTERECTO MYReviewed abnormal ultrasound findings and would recommend HYSTEROSCO PY, D&CReviewe d risks of injury to bowel, bladder, blood vessels, and surroundin g organs requiring additional surgery.Ri sks of infection requiring antibiotic and long healing time.Risks of bleeding requiring blood transfusio ns.Risks of blood clots in legs that can go to lungs and other organs that can kill.Also discussed that problem may not get better with the surgery.Qu estions were answered. Consent was obtained.Ashutosh gutierrez understand s all of her options and wishes to schedule WENDY Reviewed option of a hysterecto my with pictures to aid in understand ingUnderst ands that the benefits to the removal of the uterus would be no more mensesRevi ewed that other complaints may not resolve with surgeryUnd erstands that complicati ons are rare, but do happen.Rev iewed risks of injury to bowel, bladder, blood vessels, and surroundin g organs requiring additional surgery.Ri sks of infection requiring antibiotic and long healing time.Risks of bleeding requiring blood transfusio ns.Risks of blood clots in legs that can go to lungs and other organs that can kill.Also discussed that problem may not get better with the surgery.Qu estions were answered. Consent was obtained.Ashutosh gutierrez understand s all of her options and wishes to SCHEDULE WENDY Endometrio sis of uterus 02105528 N80.0 suspect source of pain and bleeding. 1. Nothing (nope) 2. Hormones-I T NOT WORK 3. ORILISSA/ LUPRON shut it down $1000 4. Hysterecto my withOUT removal of ovaries- Reviewed Ultrasound findings AND CLINICAL FINDINGS and used pictures to aid in understand ing Reviewed that other complaints may not resolve with surgery Understand s that complicati ons are rare, but do happen. Reviewed risks of injury to bowel, bladder, blood vessels, and surroundin g organs requiring additional surgery. Risks of infection requiring antibiotic and long healing time. Risks of bleeding requiring blood transfusio ns. Risks of blood clots in legs that can go to lungs and other organs that can kill. Also discussed that problem may not get better with the surgery. Questions were answered. Consent was obtained. Patient understand s all of her options and wishes to HYSTERECTO MY WENDY.becau se of distance from office, patient was consented for both hysterosco py and LAVH. 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 Happy with results. FU in 4 weeks for PO visit May increase activity May drive while not taking narcoticCo py of pathology Endometrio sis (clinical) 767588864 N80.9 OPTIONS 1. Nothing (nope) 2. Hormones PROGESTERO NE OPTIONS ONLY Provera, NorQD, Depoprover a, IUD Mirena 3. LUPRON shut it down 4. Laparoscop y with ablation of endometrio sis 5. Removal of ovaries [id number] Dinora Thrasher , DO Main Office [address] [facility] [address] [place] [address] 02/14/2022 14:00:29 02/15/2022 08:48:40 Postoperative visit 109241451 Z09 Full release from surgery May increase activity Endometrio sis (clinical) 222902354 N80.9 OPTIONS1. Nothing (nope)---- ---stay here right now2. Hormones PROGESTERO NE OPTIONS ONLYProver a, NorQD, Depoprover a, IUD Mirena3. LUPRON shut it down4. Laparoscop y with ablation of endometrio sis5. Removal of ovaries Bacterial vaginosis 2635 37840 N76.0 Avoid stressors for vaginitis. Written informatio n given. Consider Probiotics for vaginal health-Act barbara yogurt daily vs pills. [employer] Probiotics work for many patients Health Concerns Section Related Observation LastModified by Organization Detai ls LastModified Time None Recorded Concern Status LastModified by Organization Details LastModified Time None Recorded Advance Directives Directive None Recorded Payers Insurance Date Sequence Insurance Name Policy Number Policy Lebron Covered Member ID Lebron Member ID Guarantor Name 01/14/2022 1 DEBBY Lipscomb [id number] Remedios Lipscomb 02/10/2022 1 [facility] [id number] Remedios Lipscomb [id number] Remedios Lipscomb Notes Date Note Type Note Provider Name and Address Organization Details Recorded Time 10/01/20 21 text/htm l Abnormal BleedingReported by PatientHPIFor quality, patient reportsheavybut reportspassing clots(golf ball size). For onset/timing, patient reportspresent cycle. For duration, patient reportsdaily(3 weeks now. fix me!!). For severity, patient reportschanging pad/tampon every 1-2 hours,requires double protection,interferes with daily activities,requires getting up at night, andbleeding through onto clothes/sheets(vb through everything. looks like murder scene). Annual GYNReported by PatientHistoryFor history, patient reportsno gynecologic complaintsandno change in interval history.Genitourinary symptomsFor menstrual cycle, patient reportsmenorrhagiaandbleeding lasts more than 7 days. For urinary symptoms, patient reportsno hematuriaandno incontinence. For vulva, patient reportsno genital lesion. 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 Denies complaints.No desire for children in the next yr. control TUBALNo medical or surgical changes over last year X BLEEDING TO !!!Cannot go shopping bc VB through clothes.FIX ME!!! Golf ball size clots like 2017Murder scene!I have to work 9-6pm every day at [employer] bc we are short Dinora Thrasher, DO [address] [facility] [address] [facility] [place], [address], [place] [facility] 10/01/2021 13:21:09 11/20/19 22 text/htm l Abnormal BleedingReported by PatientHPIFor quality, patient reportsheavybut reportspassing clots(golf ball size). For onset/timing, patient reportspresent cycle. For duration, patient reportsdaily(3 weeks now. fix me!!). For severity, patient reportschanging pad/tampon every 1-2 hours,requires double protection,interferes with daily activities,requires getting up at night, andbleeding through onto clothes/sheets(vb through everything. looks like murder scene). Annual GYNReported by PatientHistoryFor history, patient reportsno gynecologic complaintsandno change in interval history.Genitourinary symptomsFor menstrual cycle, patient reportsmenorrhagiaandbleeding lasts more than 7 days. For urinary symptoms, patient reportsno hematuriaandno incontinence. For vulva, patient reportsno genital lesion. For vagina, patient reportsnormal vaginal discharge.Breast symptomsFor breast, patient reportsno breast pain,no breast lump, andno nipple discharge.Endocrine symptomsFor sexual complaints, patient reportsno sexual complaints,no pain during intercourse, andnormal libido.Preventative measuresFor preventive measures, patient reportsencourage self breast examination,encourage regular exercise, andfollowed with q3 year pap smear and high risk hpv typing.ROS as noted in the HPI X BLEEDING TO !!!Cannot go shopping [employer] ([employer]) VB through clothes.FIX ME!!! Golf ball size clots like 2017Murder scene!I have to work 9-6pm every day at [employer] we are short Stopped for 2 week and now backCAN I JUST GET IT ALL OUT Dinora Thrasher, [address] [facility] [address] [facility] [place], [address], [place] [facility] 11/20/2021 10:49:32 01/15/20 22 text/htm l ROS as noted in the HPI Patient returns for post operative visit. Doing well. Denies complaints. Dinora Thrasher, DO [address] [facility] [address] [place], [address], [place] [facility] 01/14/2022 15:16:20 02/15/20 22 text/htm l ROS as noted in the HPI Patient returns for post operative visit. Doing well. Denies complaints. Dinora Thrasher, DO [address] [facility] [address] [place], [address], [place] [facility] 02/14/2022 16:17:49 OBGyn Episode Ob Episode Information Episode Created Date Number of Fetuses Patient Bloodtype Patient rh Status Prepregnancy Weight lbs Domestic Partner Domestic Partner Phone Father Name Solar Installer Pv Status 10/01/20 21 1 CLOSED Fetus Data First Name Last Name Admitted to NICU Weight (g) Sex Living Outcome Pediatric Complications Fetus ID Race Codes Race Delivery Type Full Term 4918 vaginal Ap Calculation Initial Ap Date Initial Exam Date Initial Exam Provider Initial Ultrasound Date Last Menstrual Period Date Ultra Sound Weeks Gestation 0 Eighteen To Twenty Week Ap Update Ultra Sound Date Fundal Height At Umbil Quickening Date Ultra Sound Latest Weeks Gestation Final Ap Confirmed By Final Ap Confirmed Date Final Ap Date Ultra Sound Latest Days Gestation 0 0 Menstrual History Last Menstrual Date Menses Monthly On Bcp Conception Prior Menses Frequency Hcg Plus Date Menarche Onset Age Delivery Information Delivery Date Delivery Type Labor Anesthesia Weeks Gestation Incision Type Labor Labor Length Hrs Delivered By Post Complications Tubal Sterilization Discharge Date Comments Benny Discharge Information Feeding Method Contraceptive Method Maternal HG B and HCT Levels Ob Episode Information Episode Created Date Number of Fetuses Patient Bloodtype Patient rh Status Prepregnancy Weight lbs Domestic Partner Domestic Partner Phone Father Name Solar Installer Pv Status 10/01/20 21 1 CLOSED Fetus Data First Name Last Name Admitted to NICU Weight (g) Sex Living Outcome Pediatric Complications Fetus ID Race Codes Race Delivery Type M Full Term [id number] Ap Calculation Initial Ap Date Initial Exam Date Initial Exam Provider Initial Ultrasound Date Last Menstrual Period Date Ultra Sound Weeks Gestation 0 Eighteen To Twenty Week Ap Update Ultra Sound Date Fundal Height At Umbil Quickening Date Ultra Sound Latest Weeks Gestation Final Ap Confirmed By Final Ap Confirmed Date Final Ap Date Ultra Sound Latest Days Gestation 0 0 Menstrual History Last Menstrual Date Menses Monthly On Bcp Conception Prior Menses Frequency Hcg Plus Date Menarche Onset Age Delivery Information Delivery Date Delivery Type Labor Anesthesia Weeks Gestation Incision Type Labor Labor Length Hrs Delivered By Post Complications Tubal Sterilization Discharge Date Comments 2 Codt Discharge Information Feeding Method Contraceptive Method Maternal HG B and HCT Levels
--- OUTSIDE RECORDS SUMMARY | 2025-07-06 18:00 | XMS_ITS | Clinical Summary ---
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 Gender Identity Not on file Sexual Orientation [...] history exists Medical Devices Implanted Type Area Acute Care Physician Device Identifier Shelf Expiration Date Model / Serial / Lot [employer] Cristóbal Stent Venous Wall [id number] - [id number] Implanted:Qty: 1 on 08/21/2023 by Finn Johnson MD at [facility] [employer] [facility] 07/29/2024 [id number] / / [id number] [employer] Cristóbal Stent Venous Wall [id number] - [id number] Implanted:Qty: 1 on 08/21/2023 by Finn Johnson MD at [facility] [employer] [facility] 10/22/2024 [id number] / / [id number] Insurance [facility] Advance Directives For more information, please contact: [phone] * Full Code (Latest Code Status on File) Date Activated Date Inactivated Comments 08/21/2023 2:40 PM 08/21/2023 8:52 PM * Full Code Date Activated Date Inactivated Comments 08/17/2019 9:45 AM 08/17/2019 2:34 PM Care Teams Spanish Translator Relationship Specialty [place] [address] [address] PCP - General Family Medicine 03/23/24 [place] [address] [address] Consulting Physician Cardiology 08/17/19
--- OUTSIDE RECORDS SUMMARY | 2025-07-06 18:00 | XMS_ITS | Clinical Summary ---
Author Organization [facility] Address [address] [place] [address] Care Team Providers Care Charting Clerk Name Role Phone Hayley Fonseca APRN-NATHANAEL Primary Care Provider [phone] Source Comments [facility],non-owned Affiliates and Associated Physician Practices is amultiple site organization consisting of ambulatory clinics and hospital sitesin [place], [place], [place] and [place]. This disclosure is being madepursuant to the Care Everywhere program and may not contain all information available regarding this patient. Last updated 18.[facility] Allergies Active Allergy Reactions Criticality Noted Date [...] Only [facility] [address] [facility] [address] [facility] [place] [address] Estrella Quintanilla MD DAVILA (nonalcoholic steatohepatitis) from [...] - 26 mg/dL 07/23/2022 1:51 PM CDT [facility] Creatinine 0.98(H) 0.56 - 0.96 mg/dL 07/23/2022 1:51 PM CDT [facility] Sodium 137 136 - 145 mmol/L [facility]/23[facility]22 [facility] Potassium 3.9 3.5 - 4.5 mmol/L 07/23/2022 1:51 PM [facility] Chloride 106 98 - 107 mmol/L 07/23/2022 1:51 PM [facility] CO2 23 22 - 29 mmol/L 07/23/2022 1:51 PM [facility] Glucose 92 70 - 115 mg/dL 07/23/2022 1:51 PM [facility] Calcium 8.5 8.4 - 10.2 mg/dL 07/23/2022 1:51 PM [facility] Protein Total 6.8 6.0 - 8.3 g/dL 07/23/2022 1:51 PM [facility] Albumin 3.7 3.4 - 5.0 g/dL 07/23/2022 1:51 PM [facility] Bilirubin Total 0.5 0.2 - 1.2 mg/dL 07/23/2022 1:51 PM [facility] Alkaline Phosphatase 91 40 - 150 U/L 07/23/2022 1:51 PM [facility] ALT 41 5 - 55 U/L 07/23/2022 1:51 PM [facility] AST 30 5 - 34 U/L 07/23/2022 1:51 PM [facility] Anion Gap 12 8 - 18 07/23/2022 1:51 PM [facility] BUN/Creatinine Ratio 11 7 - 23 07/23/2022 1:51 PM [facility] Osmolality Calculated 283 270 - 300 mOsm/kg 07/23/2022 1:51 PM [facility] Albumin/Globulin Ratio 1.2 1.1 - 2.3 07/23/2022 1:51 PM [facility] eGFR by CKD-EPI 71(L) >=90 mL/min/1.7 3 m2 07/23/2022 1:51 PM [facility] Blood BLOOD SPECIMEN / Unknown Venipuncture / Unknown 07/23/2022 1:16 PM CDT 07/23/2022 1:23 PM T us Mike Oh MD LAB - CHEMISTRY ORDERABLES Final Result [facility] [address] [place] [address], [facility] [phone] from Last 3 Months or Most Recently Relevant to Health Maintenance Care Teams Charting Clerk Relationship Specialty Start Date End Date Hayley Fonseca APRN-CNP [address] [phone] PCP - General 12/18/21
--- OUTSIDE RECORDS SUMMARY | 2025-07-06 18:00 | XMS_ITS | Clinical Summary ---
Author Organization [facility] Address [address] [place] [address] Care Team Providers Care Briquette Operator Name Role Phone Laverne Oviedo MD Primary [...] patient's age to complete this topic Insurance [facility] Care Teams Briquette Operator Relationship Specialty Start Date End Date Laverne Oviedo MD [address] [place] [address] PCP - General OBGYN 02/08/20
--- OUTSIDE RECORDS SUMMARY | 2025-07-06 18:00 | XMS_ITS | Clinical Summary ---
Author Organization [facility] Address [address] [place] [address] Phone Care Team Providers Care Entry Level Accounting Clerk Name Role Phone Minerva Richardson NP Primary [...] Device Data STL ABSTRACTION Provider, Abstract 05/26/2025 [facility] Neurosurgery - [facility] [place] [address] [facility] [address] [place] [address] Provider, Abstract wants appt 05/17/2025 External Device Data STL ABSTRACTION Provider, Abstract 05/02/2025 [facility] Neurosurgery - Medical [place] [address] [facility] [address] [place] [address] Provider, Abstract new pt ppwk 04/27/2025 External Device Data STL ABSTRACTION Provider, Abstract 04/26/2025 External Device Data STL ABSTRACTION Provider, Abstract 04/26/2025 [facility] Neurosurgery - [facility] [place] [address] [facility] [address] [place] [address] Provider, Abstract new pt ppwk from Last [...] Comments Blood Pressure 107/78 11/21/2021 10:43 AM TEMPLER HEAD Pulse 86 08/29/2021 2:41 PM [facility]ER [facility] Temperature 36.8 C (98.2 F) 11/21/2021 10:43 AM TEMPLER HEAD Respiratory Rate 16 07/09/2021 4:08 PM CDT Oxygen Saturation 95% 07/09/2021 4:08 PM CDT Inhaled Oxygen Concentration - - Weight 98.9 kg (218 lb) 11/21/2021 10:43 AM TEMPLER [facility] Height 182.9 cm (6') 11/21/2021 10:43 AM TEMPLER HEAD Body Mass Index 29.57 11/21/2021 10:43 AM TEMPLER HEAD Plan of Treatment Upcoming Encounters Date Type Department Care Team (Late st Contact Info) Description 07/26/2025 11:00 AM CDT Office Visit [facility] Neurosurgery - [facility] [address] [place] [address] Edis Veronica MD [address] [facility] [address] [address] -x0 (Work) Health Maintenance Due [...] 08/17/2019, 08/16/2019 Medical Devices Implanted Type Area Technical Agronomist Device Identifier Shelf Expiration Date Model / Serial / Lot Triad Cc Allograft Implanted:Qt y: 1 on 07/09/2021 by Edis Veronica MD at [facility] Bone N/A: Spine Cervical Anterior [employer] 11/08/2025 [id number] / [id number] / Hemostatic Surgiflo 8ml W/ Thrombin 2994 - Old - [id number] Implanted:Qt y: 1 on 07/09/2021 by Edis Veronica MD at [facility] Hemostatic N/A: Spine Cervical Anterior [employer] [id number] 11/12/2022 2994 / / [id number] Acp 1.6v, 42mm, 2 Level Plate Implanted:Qt y: 1 on 07/09/2021 by Edis Veronica MD at [facility] Plate N/A: Spine Cervical Anterior [employer] [id number] / LOAD 2 9 / STERILIZED 06-29-21 Description:All Nuvasive cer vical hardware was processed on requisition, [id number]. Acp Screw, 3.5 X 15 Mm Self Drilling Jailyn Implanted:Qt y: 6 on 07/09/2021 by Edis Veronica MD at [facility] Screw N/A: Spine Cervical Anterior [employer] [id number] / LOAD 2 / STERILIZED 06-29-21 Allograft Triad Cc Cerv [id number] - [id number] Implanted:Qt y: 1 on 07/09/2021 by Edis Veronica MD at [facility] Tissue N/A: Spine Cervical Anterior [employer] 01/28/2026 [id number] / [id number] / Pacemaker Insurance BS BLUE ACCESS/TRUE BLUE PPO RX [employer] Commercial RX [employer] RX Member Subscriber Plan / Payer ( fective 2025-Present) Name:Ruel Remedios Relation to Subscriber:Self Name:Remedios Lipscomb Subscriber ID:Not on file Payer ID:Not on file Group ID:[id number] Type:RX Commercial Address: [address] Teams Entry Level Accounting Clerk Relationship Specialty Start Date End Date Minerva Richardson NP PCP - General NURSE PRACTITIONER 12/27/20
[2025-07-06] MEDS: MORPHINE SULFATE (*CRX) 4 MG/ML INJ 2 MG IV PUSH (18:25)
--- NOTE | 2025-07-06 18:32 | ADMGEN ---
This patient, Remedios Lipscomb, was admitted to [facility] S[facility] Room 313-01. Patient/family oriented to hospital policies and general routines including ID bracelet, bed and alarms, visiting hours, pain management, procedures, bathroom and other care routines, personal items, smoking policy, room service/diet, and visiting hours. Information on how to activate the Rapid Response Team has been discussed. Patient/Family are encouraged to report perceived risks to care and to ask questions if they do not understand what they are told or what they should do. Report from [facility]
[2025-07-06] MEDS: HYDROcodone/acetaminophen (*CRX) 5-325 MG TABLET 1 TAB PO (20:02)
[2025-07-06] MEDS: CYCLOBENZAPRINE HCL 10 MG TABLET PO (22:34)
[2025-07-06] MEDS: METOPROLOL TARTRATE 50 MG TAB PO (22:34)
[2025-07-06] MEDS: LACTATED RINGERS 1,000 ML 100 ML IV CONT (22:35)
[2025-07-07] VITALS (15 sets, daily range): BP systolic 99–151; BP diastolic 71–104; PULSE 60–72; RESP 10–31; TEMP 36.1–36.9; O2SAT 96–100
[2025-07-07] MEDS: HYDROcodone/acetaminophen (*CRX) 5-325 MG TABLET 1 TAB PO (00:38)
[2025-07-07] MEDS: MORPHINE SULFATE (*CRX) 4 MG/ML INJ 2 MG IV PUSH ×4 (02:54→19:46)
--- NOTE | 2025-07-07 06:40 | WPDURCON ---
Assessment and Plan Assessment and plan (1) Right ureteral stone: Code(s): N20.1 - Calculus of ureter Status: Acute Assessment and Plan: Cystoscopy, right ureteroscopy with stone extraction, possible laser lithotripsy, retrograde pyelogram and stent placement Urology Consult Note HPI Date Seen: 07/07/25 Requesting Physician: Gordon Arthur MD Primary Care Provider: Aravind Hillman, Consult Narrative Narrative: Remedios Lipscomb is a 50 year old female with a history of urolithiasis that is required ESWL in the past. She has a presents the emergency department primarily with irritable voiding symptoms and subjective fever. Whether she was afebrile and had no significant leukocytosis. Her urine perhaps showed a slight infection. CT imaging demonstrates a possible 3 mm nonobstructing right distal ureteral calculus. Overnight she has continued to have right flank pain without fever. After discussion of options she is opting for intervention today. Will plan cystoscopy with right ureteroscopy, possible laser lithotripsy, retrograde pyelogram and stent placement Review of Systems Review of Systems: All systems reviewed & are unremarkable except as noted in HPI and below PMFSH Past Medical History Medical History Colon cancer screening Lupus [place] Vasovagal syncope Anxiety Hypertension Surgical History Surgical History History of vascular surgery stenting to bilateral lower extremities History of bilateral carpal tunnel release History of hysterectomy History of spinal surgery neck and back fusion History of tubal ligation S/P placement of cardiac pacemaker History of cholecystectomy Family History Family History (Updated 07/06/25 @ 18:44 by Macy Mendoza RN) Sibling Colon cancer Father Ocular melanoma Mother Diabetes mellitus Social History Social History Smoking packs per day: 0.5 Smoking cigarettes per day: 10.0 Years smoked: 10 Smoking pack-years: 5.00 Smoking status: Never smoker Tobacco type: cigarettes Second hand tobacco smoke exposure: No Smoking end date: 10/13/14 Alcohol intake: current Substance use: never Substance use type: does not use Last use: 05/13/25 Do You Feel Safe in your Home?: Yes Lack of Transportation: No Lack of Food: Never True Current Housing: I Have Housing Concerned About Future Housing: No Difficulty Paying Gas/Electric Bills: No Difficulty Paying for Meds: No Currently Unemployed: No Education: High School Diploma/GED Difficulty w/ Childcare or Family Care: No Living arrangements: with family Gender identity (if verbalized by the patient): Female Spiritual care concerns: No Meds Home Medications and Allergies Home Medications ?Medication ?Instructions ?Recorded ?Confirmed ?Type duloxetine 60 mg capsule,delayed 60 mg PO DAILY 01/30/20 07/06/25 History release hydrochlorothiazide 25 mg tablet 25 mg PO DAILY 02/18/20 07/06/25 History metoprolol tartrate 50 mg tablet 50 mg PO Q12H 01/17/25 07/06/25 History bupropion HCl 100 mg tablet 100 mg PO BID 02/14/25 07/06/25 History cyclobenzaprine 10 mg tablet 10 mg PO TID PRN muscle spasm #20 05/14/25 07/06/25 Rx tabs Allergies Allergy/AdvReac Type Severity Reaction Status Date / Time Penicillins Allergy Intermediate Hives Verified 07/06/25 18:45 escitalopram (From Lexapro) Allergy Hives Verified 07/06/25 18:45 Vital Signs Vital Signs - 24 hr 07/06/25 11:31 07/06/25 12:16 07/06/25 13:47 Temperature 97.6 F 97.9 F Pulse Rate 102 H 75 65 Respiratory Rate 16 19 17 Blood Pressure 154/100 H 153/104 H 159/106 H Pulse Oximetry 94 91 94 Oxygen Delivery 07/06/25 14:30 07/06/25 17:28 07/06/25 18:59 Temperature Pulse Rate 70 70 Respiratory Rate 13 17 Blood Pressure 144/105 H 162/104 H Pulse Oximetry 95 100 Oxygen Delivery Room Air 07/06/25 20:00 07/06/25 21:52 07/06/25 22:34 Temperature 97.3 F L Pulse Rate 65 70 Respiratory Rate 14 Blood Pressure 148/104 H Pulse Oximetry 100 Oxygen Delivery Room Air 07/07/25 00:00 07/07/25 06:00 Temperature 97.3 F L 98.4 F Pulse Rate 65 61 Respiratory Rate 14 14 Blood Pressure 148/104 H 151/90 H Pulse Oximetry 100 100 Oxygen Delivery Exam Const: General: no acute distress Resp: Effort & Inspection: normal respiratory effort GI: Inspection: non-distended GI Palp: No abdominal tenderness and No Guarding due to palpation present (GI) Auscultation: normal bowel sounds Results Labs 07/06/25 14:04 07/06/25 14:04 Labs: Short CBC 07/06/25 Range/Units 14:04 WBC 8.8 (4.5-10.0) K/mm3 Hgb 15.5 H (12.0-15.0) g/dL Hct 45.1 (37.0-47.0) % Plt Count 273 (150-375) k/mm3 BMP 07/06/25 14:04 Sodium 138 Potassium 3.8 Chloride 106 Carbon Dioxide 23 BUN 19 H Creatinine 1.00 Glucose 95 Calcium 9.2 Liver Function 07/06/25 Range/Units 14:04 Total Bilirubin 0.9 (0.2-1.3) mg/dL AST 32 (14-36) U/L ALT 26 (6-35) U/L Alkaline Phosphatase 81 (38-126) U/L Albumin 4.3 (3.5-5.1) g/dL Urine 07/06/25 07/06/25 Range/Units 12:25 15:55 Urine Color Dark yellow Yellow (Yellow) Urine Appearance Cloudy H Clear (Clear) Urine pH 5.5 7.0 (5.0-9.0) Ur Specific [place] 1.031 > 1.045 H (1.001-1.035) Urine Protein 1+ H Trace (Negative) mg/dL Urine Glucose (UA) Negative Negative (Negative) mg/dL
--- NOTE | 2025-07-07 06:44 | WPDHPUPDATE1 ---
History and Physical Update Update Date/Time: 07/07/25 06:44 History and Physical has been reviewed, including an updated exam of the patient. There are NO changes in the patient's condition. Risks, benefits, and alternatives have been discussed and questions answered. Patient agrees to proceed with procedure.
[2025-07-07 07:49] LABS: Hematocrit 43.9 % (37.0-47.0); Hemoglobin 14.7 g/dL (12.0-15.0); Immature Granulocyte Percent A 0.3 % (0-0.5); Lymphocytes Absolute Auto 2.50 K/mm3 (0.9-3.2); Mean Corpuscular HGB Conc 33.5 g/dl (32-36); Mean Corpuscular Hemoglobin 30.9 pg (26-34); Mean Corpuscular Volume 92.4 fl (80-100); Nucleated Red Blood Cells Absolute Auto 0.000 K/mm3 (0.0-0.012); Nucleated Red Blood Cells Perc 0.0 % (0.0-0.2); Platelet Count Result 242 k/mm3 (150-375); Red Blood Count 4.75 M/mm3 (4.2-5.4); White Blood Count 6.9 K/mm3 (4.5-10.0)
[2025-07-07] MEDS: METOPROLOL TARTRATE 50 MG TAB PO ×2 (07:51→20:46)
[2025-07-07] MEDS: DULoxetine HCL 60 MG CAPSULE.DR PO (07:53)
[2025-07-07 08:21] LABS: Anion Gap 12 mmol/L (4-12); Blood Urea Nitrogen 13 mg/dL (7-17); Calcium 8.8 mg/dL (8.4-10.2); Carbon Dioxide 21 mmol/L (22-30); Chloride 104 mmol/L (98-107); Estimated CRCL calculation 72 ml/min; Estimated Glomerular Filt Rate > 60; Glucose 83 mg/dL (65-110); Potassium 4.0 mmol/L (3.4-5.0); Sodium 137 mmol/L (137-145)
[2025-07-07 08:52] LABS: Beta HCG Quantitative < 2.39 mIU/ML
--- NOTE | 2025-07-07 12:00 | WPDANESEPPF ---
Anes - Initial Pre Proc Eval Procedure: Operation Date: 07/07/25 14:00 Proposed Procedures p Cystoscopy, Right Retrograde Pyelogram, Right Ureteroscopy,Right Stone Extraction, Possible Stent Placement, Possible Holmium Laser - Sajan Simpson MD Date/Time: 07/07/25 12:00 Surgeon: Gordon Arthur MD Pre Op Diagnosis: Infected Stone Patient Data Age: 50 Gender: F Height: 1.8 m Weight: 85 kg Last Vital Signs Temp 36.9 C 07/07/25 06:00 Pulse 60 07/07/25 07:51 Resp 14 07/07/25 06:00 BP 151/90 H 07/07/25 06:00 Pulse Ox 100 07/07/25 06:00 O2 Del Method Room Air 07/07/25 08:00 Allergies Allergy/AdvReac Type Severity Reaction Status Date / Time Penicillins Allergy Intermediate Hives Verified 07/07/25 11:18 escitalopram (From Lexapro) Allergy Hives Verified 07/07/25 11:18 Home Medications ?Medication ?Instructions ?Recorded ?Confirmed ?Type duloxetine 60 mg capsule,delayed 60 mg PO DAILY 01/30/20 07/06/25 History release hydrochlorothiazide 25 mg tablet 25 mg PO DAILY 02/18/20 07/06/25 History metoprolol tartrate 50 mg tablet 50 mg PO Q12H 01/17/25 07/06/25 History bupropion HCl 100 mg tablet 100 mg PO BID 02/14/25 07/06/25 History cyclobenzaprine 10 mg tablet 10 mg PO TID PRN muscle spasm #20 05/14/25 07/06/25 Rx tabs Laboratory Tests 07/06/25 07/06/25 07/06/25 12:25 14:04 15:55 WBC 8.8 K/mm3 (4.5-10.0) RBC 5.01 M/mm3 (4.2-5.4) Hgb 15.5 H g/dL (12.0-15.0) Hct 45.1 % (37.0-47.0) MCV 90.0 fl (80-100) MCH 30.9 pg (26-34) MCHC 34.4 g/dl (32-36) RDW 12.6 % (11.5-14.5) Plt Count 273 k/mm3 (150-375) MPV 9.3 fl (7.4-10.4) Immature Gran % (Auto) 0.3 % (0-0.5) Neut % (Auto) 67.1 % (45.5-73.1) Lymph % (Auto) 22.4 % (18.3-44.2) [place] % (Auto) 8.6 H % (2.6-8.5) Eos % (Auto) 1.3 % (0-4.4) Baso % (Auto) 0.3 % (0.2-1.2) Lymph # (Auto) 1.96 K/mm3 (0.9-3.2) [place] # (Auto) 0.8 H K/mm3 (0.1-0.6) Eos # (Auto) 0.1 K/mm3 (0-0.3) Baso # (Auto) 0.0 K/mm3 (0.0-0.1) Abs Immat Gran (auto) 0.03 K/mm3 (0.00-0.031) Absolute Neuts (auto) 5.9 K/mm3 (1.3-6.7) Absolute Nucleated RBC 0.000 K/mm3 (0.0-0.012) Nucleated RBC % 0.0 % (0.0-0.2) Sodium 138 mmol/L (137-145) Potassium 3.8 mmol/L (3.4-5.0) Chloride 106 mmol/L (98-107) Carbon Dioxide 23 mmol/L (22-30) Anion Gap 9 mmol/L (4-12) BUN 19 H mg/dL (7-17) Creatinine 1.00 mg/dL (0.7-1.0) Estim Creat Clear Calc 66 ml/min Estimated GFR 58 L (59 - ) Glucose 95 mg/dL (65-110) Calcium 9.2 mg/dL (8.4-10.2) Total Bilirubin 0.9 mg/dL (0.2-1.3) AST 32 U/L (14-36) ALT 26 U/L (6-35) Alkaline Phosphatase 81 U/L (38-126) Total Protein 7.9 g/dL (6.3-8.2) Albumin 4.3 g/dL (3.5-5.1) Lipase 57 U/L (23-300) Beta HCG, Quant Urine Color Dark yellow Yellow (Yellow) (Yellow) Urine Appearance Cloudy H Clear (Clear) (Clear) Urine pH 5.5 7.0 (5.0-9.0) (5.0-9.0) Ur Specific [place] 1.031 > 1.045 H (1.001-1.035) (1.001-1.035) Urine Protein 1+ H mg/dL Trace mg/dL (Negative) (Negative) Urine Glucose (UA) Negative mg/dL Negative mg/dL (Negative) (Negative) Urine Ketones Trace H mg/dL Negative mg/dL (Negative) (Negative) Ur Blood (Man) Negative Negative (Negative) (Negative) Urine Nitrate Negative Positive H (Negative) (Negative) Urine Bilirubin Negative Negative (Negative) (Negative) Urine Urobilinogen 1.0 mg/dL 1.0 mg/dL (<2.0) (<2.0) Add Ur Microanalysis Reviewed Leukocyte Esterase Rfl 1+ H LIANG/UL Negative LIANG/UL (Negative) (Negative) Urine RBC 6-10 H /hpf 0-2 /hpf (0-2) (0-2) Urine WBC 11-20 H /hpf 21-50 H /hpf (0-3) (0-3) Ur Squamous Epith Cells Moderate /hpf None seen /hpf (Few) (Few) Urine Bacteria 1+ H /hpf 1+ H /hpf Urine Casts 6-10 0-2 Hyaline Casts Present /lpf (None) Urine Mucus Present /lpf Influenza A (RT-PCR) Negative (Negative) Influenza B (RT-PCR) Negative (Negative) RSV (RT-PCR) Negative (Negative) SARS-CoV-2 RNA (RT-PCR) Negative (Negative) 07/07/25 07:09 WBC 6.9 K/mm3 (4.5-10.0) RBC 4.75 M/mm3 (4.2-5.4) Hgb 14.7 g/dL (12.0-15.0) Hct 43.9 % (37.0-47.0) MCV 92.4 fl (80-100) MCH 30.9 pg (26-34) MCHC 33.5 g/dl (32-36) RDW 12.7 % (11.5-14.5) Plt Count 242 k/mm3 (150-375) MPV 9.6 fl (7.4-10.4) Immature Gran % (Auto) 0.3 % (0-0.5) Neut % (Auto) 52.2 % (45.5-73.1) Lymph % (Auto) 36.3 % (18.3-44.2) [place] % (Auto) 7.7 % (2.6-8.5) Eos % (Auto) 2.9 % (0-4.4) Baso % (Auto) 0.6 % (0.2-1.2) Lymph # (Auto) 2.50 K/mm3 (0.9-3.2) [place] # (Auto) 0.5 K/mm3 (0.1-0.6) Eos # (Auto) 0.2 K/mm3 (0-0.3) Baso # (Auto) 0.0 K/mm3 (0.0-0.1) Abs Immat Gran (auto) 0.02 K/mm3 (0.00-0.031) Absolute Neuts (auto) 3.6 K/mm3 (1.3-6.7) Absolute Nucleated RBC 0.000 K/mm3 (0.0-0.012) Nucleated RBC % 0.0 % (0.0-0.2) Sodium 137 mmol/L (137-145) Potassium 4.0 mmol/L (3.4-5.0) Chloride 104 mmol/L (98-107) Carbon Dioxide 21 L mmol/L (22-30) Anion Gap 12 mmol/L (4-12) BUN 13 D mg/dL (7-17) Creatinine 0.91 mg/dL (0.7-1.0) Estim Creat Clear Calc 72 ml/min Estimated GFR > 60 (59 - ) Glucose 83 mg/dL (65-110) Calcium 8.8 mg/dL (8.4-10.2) Total Bilirubin AST ALT Alkaline Phosphatase Total Protein Albumin Lipase Beta HCG, Quant < 2.39 mIU/ML Urine Color Urine Appearance Urine pH Ur Specific [place] Urine Protein Urine Glucose (UA) Urine Ketones Ur Blood (Man) Urine Nitrate Urine Bilirubin Urine Urobilinogen Add Ur Microanalysis Leukocyte Esterase Rfl Urine RBC Urine WBC Ur Squamous Epith Cells Urine Bacteria Urine Casts Hyaline Casts Urine Mucus Influenza A (RT-PCR) Influenza B (RT-PCR) RSV (RT-PCR) SARS-CoV-2 RNA (RT-PCR) Patient hx anesthesia problems: none Family hx anesthesia problems: none Results Review: All pre-operative results and documents have been reviewed as part of the pre-operative evaluation. [facility] Past Medical History Medical History Colon cancer screening Lupus [place] Vasovagal syncope Anxiety Hypertension Surgical History Surgical History History of vascular surgery stenting to bilateral lower extremities History of bilateral carpal tunnel release History of hysterectomy History of spinal surgery neck and back fusion History of tubal ligation S/P placement of cardiac pacemaker History of cholecystectomy Family History Family History Sibling Colon cancer Father Ocular melanoma Mother Diabetes mellitus Social History Social History (Updated 07/07/25 @ 12:01 by Mian Gunter MD) Smoking packs per day: 0.5 Smoking cigarettes per day: 10.0 Years smoked: 10 Smoking pack-years: 5.00 Smoking status: Former smoker Tobacco type: cigarettes Second hand tobacco smoke exposure: No Smoking end date: 10/13/14 Alcohol intake: current Substance use: never Substance use type: does not use Last use: 05/13/25 Do You Feel Safe in your Home?: Yes Lack of Transportation: No Lack of Food: Never True Current Housing: I Have Housing Concerned About Future Housing: No Difficulty Paying Gas/Electric Bills: No Difficulty Paying for Meds: No Currently Unemployed: No Education: High School Diploma/GED Difficulty w/ Childcare or Family Care: No Living arrangements: with family Gender identity (if verbalized by the patient): Female Spiritual care concerns: No Anes - Eval Final PreProcedure Day of Procedure 07/07/25 12:00 Patient weight: overweight Heart: regular rate and rhythm Lungs: clear to auscultation Airway: Mallampati scale class III Neurological: alert and oriented Last oral intake: >/= 8 hours ASA classification: III Emergent: no Anesthetic plan: proceed Anesthesia type and monitoring: general LMA Results Review: All pre-operative results and documents have been reviewed as part of the pre-operative evaluation. Informed Consent: The patient's anesthetic plan and its attendant risks and benefits were discussed with the patient/family/POA. Questions were solicited and answers provided to the satisfaction of the patient/family/POA.
--- NOTE | 2025-07-07 12:35 | P.PNIM_ITS ---
Progress Note: A&P Assessment and Plan (1) UTI (urinary tract infection): Qualifiers: Hematuria presence: without hematuria Urinary tract infection type: acute cystitis Qualified Code(s): N30.00 - Acute cystitis without hematuria Code(s): N39.0 - Urinary tract infection, site not specified Status: Acute Assessment and Plan: Diagnosed with a UTI on 07/01. Started on Keflex p.o. outpatient. Despite compliance with antibiotics the patient continues to have urinary symptoms and subjective fever with a max T at home of 102? F. Urine culture from 07/01 showed pansensitive E coli. Currently complicated by a kidney stones, nonobstructing. - did not meet SIRS criteria - UA: High specific gravity, positive nitrates, 21-50 WBC, 1+ bacteria, use the ileal cells with straight catheterization - 07/06 UC pending - reviewed previous micro, no resistances noted - started on Levaquin on 07/06 (2) Kidney stone: Code(s): N20.0 - Calculus of kidney Status: Acute Assessment and Plan: Patient is reporting back pain, related to kidney stones noted on CT Creatinine normal Recent Ecoli UTI 07/01. Allergy to PCN s/p Levaquin yesterday & today - CT abd/pelvis: 1. Possible 3 mm distal right ureteral stone in the pelvis. No significant associated hydronephrosis. 2: Mildly prominent appendix measuring 12 mm axially. No significant surrounding inflammation. 3: Nonobstructing bilateral nephrolithiasis. - strain all urine - analgesics p.r.n.: Tylenol, [place], morphine - urology consulted, s/p lithotripsy today. Stone removed, no stone needed (3) Hypertension: Qualifiers: Hypertension type: primary hypertension Qualified Code(s): I10 - Essential (primary) hypertension Code(s): I10 - Essential (primary) hypertension Status: Chronic Assessment and Plan: - chronic, currently 144/105. elevated secondary to pain? - continue home medications: HCTZ, metoprolol - monitor - Add hydralazine 10 QID prn (4) Facial rash: Code(s): R21 - Rash and other nonspecific skin eruption Status: Acute Assessment and Plan: Erythema to cheeks, numbness/tingling to toes and trace proteinuria. Ddx includes lupus --Check FRANKLIN, ANCA --If persistent proteinuria at follow up check anti-GBM, consider renal referral --Also recent ear pain and facial pain/tenderness to upper cheek. No obvious vesicles and ear pain is improving. No facial weakness (5) Leg pain: Code(s): M79.606 - Pain in leg, unspecified Status: Acute Assessment and Plan: Reports a hx of bilateral stents to legs (femoral?) by Dr. Johnson. Records not available. Reports she is not on anticoagulation. Not taking aspirin Pain to left leg posteriorly. Pedal pulses palpable bilaterally Bilateral LE venous dopplers (6) Neuropathy: Code(s): G62.9 - Polyneuropathy, unspecified Status: Acute Assessment and Plan: Evaluate as above Also check A1c & TSH, ANCA Plan Diet: Heart healthy GI Prophylaxis: N/a DVT Prophylaxis: SCDs IV fluids: 2L bolus Lines/Tubes: Peripheral IV Code Status: Full code Time Spent With Patient Time: 57 minutes Subjective Date/time seen: 07/07/25 12:35 Interval history: s/p cystoscopy with lithotripsy, retrograde pyelogram and stent placement with urology Mild abdominal discomfort post procedure Reports left facial and left ear pain Review of Systems Review of Systems: All systems reviewed & are unremarkable except as noted in HPI and below Exam Narrative: General - Awake and alert. No acute distress Eyes - PERRLA, EOM intact ENT - No thrush, No erythema Neck - No noticeable or palpable swelling Lymph Nodes - No lymphadenopathy Cardiovascular - RRR no m/r/g, no JVD Lungs: Clear to auscultation, No wheezing, use of accessory muscles, no crackles or wheezes. Skin - Skin warm and dry, no wounds or rashes Abdomen - Normal bowel sounds, abdomen soft and nontender Extremities - No edema, cyanosis or clubbing Musculoskeletal - 5/5 strength, normal range of motion, no swollen or erythematous joints. Neurological ? Alert and oriented x 3, CN 2-12 grossly intact. Psych: Normal mood and affect Objective Data Vital Signs Vital Signs: Vital Signs - 24 hr 07/06/25 13:47 07/06/25 14:30 07/06/25 17:28 Temperature Pulse Rate 65 70 70 Respiratory Rate 17 13 17 Blood Pressure 159/106 H 144/105 H 162/104 H Pulse Oximetry 94 95 100 Oxygen Delivery 07/06/25 18:59 07/06/25 20:00 07/06/25 21:52 Temperature 97.3 F L Pulse Rate 65 Respiratory Rate 14 Blood Pressure 148/104 H Pulse Oximetry 100 Oxygen Delivery Room Air Room Air 07/06/25 22:34 07/07/25 00:00 07/07/25 06:00 Temperature 97.3 F L 98.4 F Pulse Rate 70 65 61 Respiratory Rate 14 14 Blood Pressure 148/104 H 151/90 H Pulse Oximetry 100 100 Oxygen Delivery 07/07/25 07:51 07/07/25 08:00 Temperature Pulse Rate 60 Respiratory Rate Blood Pressure Pulse Oximetry Oxygen Delivery Room Air Intake/Output Intake/Output: Intake & Output 07/04/25 07/05/25 07/06/25 07/07/25 23:59 23:59 23:59 23:59 Intake Total 1190 250 Output Total 350 2000 Balance 840 -1750 Meds/Results Medications: Active Medications Generic Name Dose Route Start Last Admin Trade Name Freq PRN Reason Stop Dose Admin Acetaminophen 650 mg 07/06/25 17:12 Acetaminophen 325 Mg Tablet PO Q4H PRN Mild Pain (1-3) or Fever Hydrocodone Bitart/Acetaminophen 1 tab 07/06/25 17:12 07/07/25 00:38 Hydrocodone/Acetaminophen (*Crx) 5-325 Mg Tablet PO 1 tab Q4H PRN Administration Moderate Pain (4-6) Bisacodyl 5 mg 07/06/25 17:12 Bisacodyl 5 Mg Tablet Ec PO DAILY PRN Constipation Bupropion HCl 100 mg 07/07/25 09:00 07/07/25 07:53 Bupropion Hcl 100 Mg Tablet PO 100 mg Q12HR YENNY Administration Cyclobenzaprine HCl 10 mg 07/06/25 22:11 07/06/25 22:34 Cyclobenzaprine Hcl 10 Mg Tablet PO 10 mg TID PRN Administration Muscle Spasm Duloxetine HCl 60 mg 07/07/25 09:00 07/07/25 07:53 Duloxetine Hcl 60 Mg Capsule.Dr PO 60 mg DAILY YENNY Administration Fentanyl Citrate 25 mcg 07/07/25 11:59 Fentanyl Citrate Inj (*Crx) 100 Mcg/2 Ml Vial IV PUSH Q2M PRN Pain Hydrochlorothiazide 25 mg 07/07/25 09:00 Hydrochlorothiazide 25 Mg Tablet PO DAILY YENNY Levofloxacin/Dextrose 750 mg in 150 mls @ 100 mls/hr 07/07/25 17:00 Levaquin 750 Mg/D5w 150 Ml IVPB Q24H [facility] Lactated Ringer's 1,000 mls @ 30 mls/hr 07/07/25 12:00 Lr - Lactated Ringers Iv IV CONT .Q24H [facility] Lactated Ringer's 1,000 mls @ 30 mls/hr 07/07/25 12:00 Lr - Lactated Ringers Iv IV CONT .Q24H [facility] Metoclopramide HCl 10 mg 07/06/25 17:18 Metoclopramide Hcl 10 Mg Tablet PO Q6H PRN Nausea And Vomiting Metoprolol Tartrate 50 mg 07/06/25 22:15 07/07/25 07:51 Metoprolol Tartrate 50 Mg Tab PO 50 mg Q12HR [facility] Administration Morphine Sulfate 2 mg 07/06/25 17:19 07/07/25 10:39 Morphine Sulfate (*Crx) 4 Mg/Ml Inj IV PUSH 2 mg Q4H PRN Administration Pain Rated 7-10 Ondansetron HCl 4 mg 07/07/25 11:59 Ondansetron Inj 4 Mg/2 Ml Vial IV PUSH ONCE PRN Nausea Polyethylene Glycol 17 gm 07/07/25 09:00 07/07/25 09:50 Polyethylene Glycol 3350 17 Gm Powd.Pack [facility] Results: ITS Impressions Chest X-Ray 07/06/25 14:34 IMPRESSION: 1: NO ACUTE CARDIOPULMONARY DISEASE. Abdomen/Pelvis CT 07/06/25 15:06 IMPRESSION: 1. Possible 3 mm distal right ureteral stone in the pelvis. No significant associated hydronephrosis. 2: Mildly prominent appendix measuring 12 mm axially. No significant surrounding inflammation. 3: Nonobstructing bilateral nephrolithiasis. Labs Labs: Laboratory Results - last 24 hr 07/06/25 07/06/25 07/06/25 12:25 14:04 15:55 WBC 8.8 RBC 5.01 Hgb 15.5 H Hct 45.1 MCV 90.0 MCH 30.9 MCHC 34.4 RDW 12.6 Plt Count 273 MPV 9.3 Immature Gran % (Auto) 0.3 Neut % (Auto) 67.1 Lymph % (Auto) 22.4 [place] % (Auto) 8.6 H Eos % (Auto) 1.3 Baso % (Auto) 0.3 Lymph # (Auto) 1.96 [place] # (Auto) 0.8 H Eos # (Auto) 0.1 Baso # (Auto) 0.0 Abs Immat Gran (auto) 0.03 Absolute Neuts (auto) 5.9 Absolute Nucleated RBC 0.000 Nucleated RBC % 0.0 Sodium 138 Potassium 3.8 Chloride 106 Carbon Dioxide 23 Anion Gap 9 BUN 19 H Creatinine 1.00 Estim Creat Clear Calc 66 Estimated GFR 58 L Glucose 95 Calcium 9.2 Total Bilirubin 0.9 AST 32 ALT 26 Alkaline Phosphatase 81 Total Protein 7.9 Albumin 4.3 Lipase 57 Beta HCG, Quant Urine Color Dark yellow Yellow Urine Appearance Cloudy H Clear Urine pH 5.5 7.0 Ur Specific [place] 1.031 > 1.045 H Urine Protein 1+ H Trace Urine Glucose (UA) Negative Negative Urine Ketones Trace H Negative Ur Blood (Man) Negative Negative Urine Nitrate Negative Positive H Urine Bilirubin Negative Negative Urine Urobilinogen 1.0 1.0 Add Ur Microanalysis Reviewed Leukocyte Esterase Rfl 1+ H Negative Urine RBC 6-10 H 0-2 Urine WBC 11-20 H 21-50 H Ur Squamous Epith Cells Moderate None seen Urine Bacteria 1+ H 1+ H Urine Casts 6-10 0-2 Hyaline Casts Present Urine Mucus Present Influenza A (RT-PCR) Negative Influenza B (RT-PCR) Negative RSV (RT-PCR) Negative SARS-CoV-2 RNA (RT-PCR) Negative 07/07/25 07:09 WBC 6.9 RBC 4.75 Hgb 14.7 Hct 43.9 MCV 92.4 MCH 30.9 MCHC 33.5 RDW 12.7 Plt Count 242 MPV 9.6 Immature Gran % (Auto) 0.3 Neut % (Auto) 52.2 Lymph % (Auto) 36.3 [place] % (Auto) 7.7 Eos % (Auto) 2.9 Baso % (Auto) 0.6 Lymph # (Auto) 2.50 [place] # (Auto) 0.5 Eos # (Auto) 0.2 Baso # (Auto) 0.0 Abs Immat Gran (auto) 0.02 Absolute Neuts (auto) 3.6 Absolute Nucleated RBC 0.000 Nucleated RBC % 0.0 Sodium 137 Potassium 4.0 Chloride 104 Carbon Dioxide 21 L Anion Gap 12 BUN 13 D Creatinine 0.91 Estim Creat Clear Calc 72 Estimated GFR > 60 Glucose 83 Calcium 8.8 Total Bilirubin AST ALT Alkaline Phosphatase Total Protein Albumin Lipase Beta HCG, Quant < 2.39 Urine Color Urine Appearance Urine pH Ur Specific [place] Urine Protein Urine Glucose (UA) Urine Ketones Ur Blood (Man) Urine Nitrate Urine Bilirubin Urine Urobilinogen Add Ur Microanalysis Leukocyte Esterase Rfl Urine RBC Urine WBC Ur Squamous Epith Cells Urine Bacteria Urine Casts Hyaline Casts Urine Mucus Influenza A (RT-PCR) Influenza B (RT-PCR) RSV (RT-PCR) SARS-CoV-2 RNA (RT-PCR) Quality VTE Prophylaxis VTE prophylaxis: mechanical ordered Hospitalist MIPS Advance Care Plan I have confirmed that the patient's Advanced Care Plan is present, code status is documented, or surrogate decision maker is listed in patient medical record.: Yes Medication Reconciliation I have utilized all available resources to obtain, update and review the patients current medications (includes all prescriptions, OTC, herbals, cannabis, and nutritional supplements).: Yes
--- NOTE | 2025-07-07 13:28 | S_PTH ---
PATIENT: Remedios Lipscomb LOC: [id number] U#:[id number] AGE/SX: 50/F ROOM: 313 RE07/06/[address]: Gordon Arthur MD : 1975 BED: 01 DIS: 07/08/2025 SPEC #: [id number] RECD: 07/07/25 14:05 STATUS: VINNY REJim #: [id number] RENÉE: 07/07/25 13:[address]: Saajn Simpson DEPT: [facility] Surgical RECD BY: Bing Warren ENTERED: 07/07/25 14:05 SP TYPE: Surgical OTHR DR: Aravind Hillman, MD Gordon Arthur, MD Arlet Randhawa APRN Tissues: A - Stone Procedures: Gross Exam Level 1 Crystalline Analysis
[2025-07-07] MEDS: LACTATED RINGERS 1,000 ML 30 ML IV CONT (13:35)
--- NOTE | 2025-07-07 13:43 | W.PM.PROC2 ---
Procedure Note - Detailed Date of Procedure 07/07/25 Pre-op Diagnosis Right ureteral stone Post-op Diagnosis Same Procedure Performed Cystoscopy, right ureteroscopy with stone extraction Surgeon Sajan Simpson MD Anesthesia General Description of Procedure The patient was brought to the operative suite where she is prepped and draped in a routine sterile fashion while in the dorsal lithotomy position after the uneventful induction of a general LMA anesthetic. A 19F rigid cystoscope was placed in the bladder. The patient had no evidence of urethral stricture or bladder neck contracture. The bladder mucosa was endoscopically normal without hyperemia or neoplasm. There was a single, orthotopic ureteral orifice bilaterally. A 0.035 glidewire was advanced into the right renal pelvis under fluoroscopy. The distal ureter was dilated with an 8F/10F ureteral dilator. Ureteroscopy was undertaken with a short, tapered, semi-rigid ureteroscope and the stone was extracted with ease using a 1.9F Escape disposable stone basket. Due to the ease of this manipulation I opted not to place a ureteral stent. The patient's bladder was emptied and was taken to the recovery room having tolerated this procedure well. Urine Output 800 Drains No Pathology Yes Complications No immediate complications
[2025-07-07] MEDS: fentaNYL CITRATE INJ (*CRX) 100 MCG/2 ML VIAL 25 MCG IV PUSH (14:49)
[2025-07-07] MEDS: levoFLOXacin 750 MG/D5W 150 ML 750 MG/150 ML BAG 100 MG IVPB (16:48)
[2025-07-08] MEDS: MORPHINE SULFATE (*CRX) 4 MG/ML INJ 2 MG IV PUSH ×2 (00:08→10:49)
[2025-07-08 05:30] VITALS: BP 144/95; PULSE 65; RESP 14; TEMP 36.6; O2SAT 99
[2025-07-08 05:58] LABS: Hematocrit 43.4 % (37.0-47.0); Hemoglobin 14.9 g/dL (12.0-15.0); Immature Granulocyte Percent A 0.4 % (0-0.5); Lymphocytes Absolute Auto 1.90 K/mm3 (0.9-3.2); Mean Corpuscular HGB Conc 34.3 g/dl (32-36); Mean Corpuscular Hemoglobin 31.1 pg (26-34); Mean Corpuscular Volume 90.6 fl (80-100); Nucleated Red Blood Cells Absolute Auto 0.000 K/mm3 (0.0-0.012); Nucleated Red Blood Cells Perc 0.0 % (0.0-0.2); Platelet Count Result 259 k/mm3 (150-375); Red Blood Count 4.79 M/mm3 (4.2-5.4); White Blood Count 10.7 K/mm3 (4.5-10.0)
[2025-07-08 06:06] LABS: Hemoglobin A1C 5.2 % (<5.7)
--- NOTE | 2025-07-08 06:08 | WPDUROPN2 ---
Progress Note: A&P Assessment and Plan (1) Right ureteral stone: Code(s): N20.1 - Calculus of ureter Status: Acute Assessment and Plan: Feeling much better after ureteroscopy with stone extraction Even though urine cultures not complete, given the fact she is afebrile and responding to IV Levaquin I think she can safely go home on oral Cipro/ Levaquin for 5 days. Subjective Subjective Date/Time Seen: 07/08/25 06:08 Interval history: Very minimal right flank discomfort, overall feeling much better. Review of Systems Cardiovascular: Cardiovascular: Denies chest pain, Denies lightheadedness, Denies palpitations and Denies dyspnea Respiratory: Respiratory: Denies dyspnea Gastrointestinal: Gastrointestinal: Denies diarrhea, Denies nausea and Denies vomiting Genitourinary: Genitourinary: Denies hematuria and Denies dysuria Endocrine: Endocrine: Denies palpitations Exam Const: General: no acute distress Resp: Effort & Inspection: normal respiratory effort GI: Inspection: non-distended GI Palp: No abdominal tenderness and No Guarding due to palpation present (GI) Auscultation: normal bowel sounds Objective Data Vital Signs Vital Signs: Vital Signs - 24 hr 07/07/25 07:51 07/07/25 08:00 07/07/25 13:35 Temperature 97 F L Pulse Rate 60 60 Respiratory Rate 15 Blood Pressure 99/71 L Pulse Oximetry 98 Oxygen Delivery Room Air Simple Face Mask Oxygen Flow Rate 6 07/07/25 13:50 07/07/25 14:05 07/07/25 14:17 Temperature Pulse Rate 64 66 Respiratory Rate 14 15 Blood Pressure 103/84 126/92 H Pulse Oximetry 100 100 Oxygen Delivery Simple Face Mask Simple Face Mask Room Air Oxygen Flow Rate 6 6 07/07/25 14:20 07/07/25 14:35 07/07/25 14:50 Temperature Pulse Rate 70 72 68 Respiratory Rate 21 H 31 H 10 L Blood Pressure 125/89 136/91 H 130/91 H Pulse Oximetry 96 99 100 Oxygen Delivery Room Air Room Air Room Air Oxygen Flow Rate 07/07/25 15:05 07/07/25 15:44 07/07/25 16:55 Temperature 97.1 F L Pulse Rate 69 71 Respiratory Rate 17 17 Blood Pressure 130/97 H 145/101 H 147/98 H Pulse Oximetry 100 97 Oxygen Delivery Room Air Oxygen Flow Rate 07/07/25 17:43 07/07/25 20:00 07/07/25 21:09 Temperature 97.3 F L Pulse Rate 66 Respiratory Rate 13 Blood Pressure 140/98 H 132/86 Pulse Oximetry 96 Oxygen Delivery Room Air Oxygen Flow Rate 07/07/25 21:46 07/08/25 05:30 Temperature 97.9 F Pulse Rate 65 Respiratory Rate 14 Blood Pressure 144/95 H Pulse Oximetry 96 99 Oxygen Delivery Room Air Oxygen Flow Rate Intake/Output Intake/Output: Intake & Output 07/05/25 07/06/25 07/07/25 07/08/25 23:59 23:59 23:59 23:59 Intake Total 1190 1240 500 Output Total 350 3200 950 Balance 262 -7244 -576 Meds/Results Medications: Active Medications Generic Name Dose Route Start Last Admin Trade Name Freq PRN Reason Stop Dose Admin Acetaminophen 650 mg 07/06/25 17:12 Acetaminophen 325 Mg Tablet PO Q4H PRN Mild Pain (1-3) or Fever Hydrocodone Bitart/Acetaminophen 1 tab 07/06/25 17:12 07/07/25 00:38 Hydrocodone/Acetaminophen (*Crx) 5-325 Mg Tablet PO 1 tab Q4H PRN Administration Moderate Pain (4-6) Bisacodyl 5 mg 07/06/25 17:12 Bisacodyl 5 Mg Tablet Ec PO DAILY PRN Constipation Bupropion HCl 100 mg 07/07/25 09:00 07/07/25 20:46 Bupropion Hcl 100 Mg Tablet PO 100 mg Q12HR YENNY Administration Cyclobenzaprine HCl 10 mg 07/06/25 22:11 07/06/25 22:34 Cyclobenzaprine Hcl 10 Mg Tablet PO 10 mg TID PRN Administration Muscle Spasm Duloxetine HCl 60 mg 07/07/25 09:00 07/07/25 07:53 Duloxetine Hcl 60 Mg Capsule.Dr PO 60 mg DAILY YENNY Administration Hydralazine HCl 10 mg 07/07/25 16:58 07/07/25 17:42 Hydralazine 10 Mg Tablet PO 10 mg QID PRN Administration Hypertension Hydrochlorothiazide 25 mg 07/07/25 09:00 07/07/25 15:48 Hydrochlorothiazide 25 Mg Tablet PO 25 mg DAILY YENNY Administration Levofloxacin/Dextrose 750 mg in 150 mls @ 100 mls/hr 07/07/25 17:00 07/07/25 18:33 Levaquin 750 Mg/D5w 150 Ml IVPB [facility]used [facility] Metoclopramide HCl 10 mg 07/06/25 17:18 Metoclopramide Hcl 10 Mg Tablet PO Q6H PRN Nausea And Vomiting Metoprolol Tartrate 50 mg 07/06/25 22:15 07/07/25 20:46 Metoprolol Tartrate 50 Mg Tab PO 50 mg Q12HR YENNY Administration Morphine Sulfate 2 mg 07/06/25 17:19 07/08/25 00:08 Morphine Sulfate (*Crx) 4 Mg/Ml Inj IV PUSH 2 mg Q4H PRN Administration Pain Rated 7-10 Polyethylene Glycol 17 gm 07/07/25 09:00 07/07/25 09:50 Polyethylene Glycol 3350 17 Gm Powd.Pack [place] [facility] [place] Results: ITS Impressions Chest X-Ray 07/06/25 14:34 IMPRESSION: 1: NO ACUTE CARDIOPULMONARY DISEASE. Abdomen/Pelvis CT 07/06/25 15:06 IMPRESSION: 1. Possible 3 mm distal right ureteral stone in the pelvis. No significant associated hydronephrosis. 2: Mildly prominent appendix measuring 12 mm axially. No significant surrounding inflammation. 3: Nonobstructing bilateral nephrolithiasis. Fluoroscopy 07/07/25 13:42 IMPRESSION: Fluoroscopy used during right retrograde pyelogram. Labs Labs: Laboratory Results - last 24 hr 07/07/25 07/08/25 07:09 05:25 WBC 6.9 RBC 4.75 Hgb 14.7 Hct 43.9 MCV 92.4 MCH 30.9 MCHC 33.5 RDW 12.7 Plt Count 242 MPV 9.6 Immature Gran % (Auto) 0.3 Neut % (Auto) 52.2 Lymph % (Auto) 36.3 [place] % (Auto) 7.7 Eos % (Auto) 2.9 Baso % (Auto) 0.6 Lymph # (Auto) 2.50 [place] # (Auto) 0.5 Eos # (Auto) 0.2 Baso # (Auto) 0.0 Abs Immat Gran (auto) 0.02 Absolute Neuts (auto) 3.6 Absolute Nucleated RBC 0.000 Nucleated RBC % 0.0 Sodium 137 Potassium 4.0 Chloride 104 Carbon Dioxide 21 L Anion Gap 12 BUN 13 D Creatinine 0.91 Estim Creat Clear Calc 72 Estimated GFR > 60 Glucose 83 Hemoglobin A1c 5.2 Calcium 8.8 Beta HCG, Quant < 2.39
[2025-07-08 06:34] LABS: Alanine Aminotransferase 26 U/L (6-35); Albumin Level 4.3 g/dL (3.5-5.1); Alkaline Phosphatase 79 U/L (38-126); Anion Gap 10 mmol/L (4-12); Aspartate Amino Transferase 30 U/L (14-36); Bilirubin,Total 0.7 mg/dL (0.2-1.3); Blood Urea Nitrogen 17 mg/dL (7-17); Calcium 9.3 mg/dL (8.4-10.2); Carbon Dioxide 24 mmol/L (22-30); Chloride 99 mmol/L (98-107); Cholesterol 255 mg/dL (0-200); Estimated CRCL calculation 66 ml/min; Estimated Glomerular Filt Rate 58; Glucose 111 mg/dL (65-110); HDL Direct 46 mg/dL; Potassium 3.8 mmol/L (3.4-5.0); Sodium 133 mmol/L (137-145); Total Protein 7.7 g/dL (6.3-8.2); Triglycerides 122 mg/dL (<150)
[2025-07-08 06:49] LABS: Thyroid Stimulating Hormone Reflex 1.270 uIU/mL (0.465-4.68)
[2025-07-08 07:32] LABS: Vitamin B12 626.0 pg/mL (239-931)
[2025-07-08] MEDS: DULoxetine HCL 60 MG CAPSULE.DR PO (08:36)
[2025-07-08] MEDS: HYDROcodone/acetaminophen (*CRX) 5-325 MG TABLET 1 TAB PO (08:36)
[2025-07-08 08:37] VITALS: PULSE 62
[2025-07-08] MEDS: METOPROLOL TARTRATE 50 MG TAB PO (08:37)
--- NOTE | 2025-07-08 10:13 | WPDANESPN ---
Anes - Prog Note Post-Op Date/Time: 07/08/25 10:13 Cardiovascular status: normal Respiratory status: normal Airway patency: baseline Mental status: baseline Post-Op hydration status: normal Vital Signs: Last Vital Signs Temp 36.6 C 07/08/25 05:30 Pulse 62 07/08/25 08:37 Resp 14 07/08/25 05:30 BP 144/95 H 07/08/25 05:30 Pulse Ox 99 07/08/25 05:30 O2 Del Method Room Air 07/07/25 21:46 O2 Flow Rate 6 07/07/25 14:05 Pain Score (VAS): 0 I/O: Intake & Output 07/07/25 07/08/25 07/08/25 23:59 07:59 15:59 Intake Total 890 500 0 Output Total 400 950 Balance 490 -450 0 Laboratory Tests 07/08/25 05:25 07/08/25 05:25 07/08/25 05:25 WBC 10.7 H RBC 4.79 Hgb 14.9 Hct 43.4 MCV 90.6 MCH 31.1 MCHC 34.3 RDW 12.5 Plt Count 259 MPV 9.4 Immature Gran % (Auto) 0.4 Neut % (Auto) 73.9 H Lymph % (Auto) 17.7 L [place] % (Auto) 7.5 Eos % (Auto) 0.2 Baso % (Auto) 0.3 Lymph # (Auto) 1.90 [place] # (Auto) 0.8 H Eos # (Auto) 0.0 Baso # (Auto) 0.0 Abs Immat Gran (auto) 0.04 H Absolute Neuts (auto) 7.9 H Absolute Nucleated RBC 0.000 Nucleated RBC % 0.0 Sodium 133 L Potassium 3.8 Chloride 99 Carbon Dioxide 24 Anion Gap 10 BUN 17 Creatinine 1.00 Estim Creat Clear Calc 66 Estimated GFR 58 L Glucose 111 H Hemoglobin A1c 5.2 Calcium 9.3 Total Bilirubin 0.7 AST 30 ALT 26 Alkaline Phosphatase 79 Total Protein 7.7 Albumin 4.3 Triglycerides 122 Cholesterol 255 H LDL Cholesterol Direct 165 HDL Direct 46 Vitamin B12 626.0 Folate 3.9 TSH (Reflex) 1.270 c-ANCA Antibody Pending Proteinase 3 (PR3) Ab Pending Atypical p-ANCA Pending p-ANCA Antibody Pending Myeloperoxidase Ab Pending S.cerevisiae IgG Ab Pending S.cerevisiae IgA Ab Pending Microbiology 07/06/25 15:55 Urine Catheterized - Preliminary Gram negative bacilli isolated Post-procedural complaints: none Patient Feedback: Patient satisfied with anesthetic care.
--- NOTE | 2025-07-08 13:18 | PM.IMPN ---
Progress Note: A&P Assessment and Plan (1) UTI (urinary tract infection): Qualifiers: Hematuria presence: without hematuria Urinary tract infection type: acute cystitis Qualified Code(s): N30.00 - Acute cystitis without hematuria Code(s): N39.0 - Urinary tract infection, site not specified Status: Acute Assessment and Plan: Diagnosed with a UTI on 07/01. Started on Keflex p.o. outpatient. Despite compliance with antibiotics the patient continues to have urinary symptoms and subjective fever with a max T at home of 102? F. Urine culture from 07/01 showed pansensitive E coli. Currently complicated by a kidney stones, nonobstructing. - did not meet SIRS criteria - UA: High specific gravity, positive nitrates, 21-50 WBC, 1+ bacteria, use the ileal cells with straight catheterization - 07/06 UC pending - reviewed previous micro, no resistances noted - started on Levaquin on 07/06 (2) Kidney stone: Code(s): N20.0 - Calculus of kidney Status: Acute Assessment and Plan: Patient is reporting back pain, related to kidney stones noted on CT Creatinine normal Recent Ecoli UTI 07/01. Allergy to PCN s/p Levaquin yesterday & today - CT abd/pelvis: 1. Possible 3 mm distal right ureteral stone in the pelvis. No significant associated hydronephrosis. 2: Mildly prominent appendix measuring 12 mm axially. No significant surrounding inflammation. 3: Nonobstructing bilateral nephrolithiasis. - strain all urine - analgesics p.r.n.: Tylenol, [place], morphine - urology consulted, s/p lithotripsy today. Stone removed, no stone needed (3) Hypertension: Qualifiers: Hypertension type: primary hypertension Qualified Code(s): I10 - Essential (primary) hypertension Code(s): I10 - Essential (primary) hypertension Status: Chronic Assessment and Plan: - chronic, currently 144/105. elevated secondary to pain? - continue home medications: HCTZ, metoprolol - monitor - Add hydralazine 10 QID prn (4) Facial rash: Code(s): R21 - Rash and other nonspecific skin eruption Status: Acute Assessment and Plan: Erythema to cheeks, numbness/tingling to toes and trace proteinuria. Ddx includes lupus --Check FRANKLIN, ANCA --If persistent proteinuria at follow up check anti-GBM, consider renal referral --Also recent ear pain and facial pain/tenderness to upper cheek. No obvious vesicles and ear pain is improving. No facial weakness (5) Leg pain: Code(s): M79.606 - Pain in leg, unspecified Status: Acute Assessment and Plan: Reports a hx of bilateral stents to legs (femoral?) by Dr. Johnson. Records not available. Reports she is not on anticoagulation. Not taking aspirin Pain to left leg posteriorly. Pedal pulses palpable bilaterally Bilateral LE venous dopplers (6) Neuropathy: Code(s): G62.9 - Polyneuropathy, unspecified Status: Acute Assessment and Plan: Evaluate as above Also check A1c & TSH, ANCA Plan Diet: Heart healthy GI Prophylaxis: N/a DVT Prophylaxis: SCDs IV fluids: 2L bolus Lines/Tubes: Peripheral IV Code Status: Full code Subjective Date/time seen: 07/08/25 13:18 Interval history: OK to discharge with cipro/levaquin Review of Systems Review of Systems: All systems reviewed & are unremarkable except as noted in HPI and below Exam Narrative: General - Awake and alert. No acute distress Eyes - PERRLA, EOM intact ENT - No thrush, No erythema Neck - No noticeable or palpable swelling Lymph Nodes - No lymphadenopathy Cardiovascular - RRR no m/r/g, no JVD Lungs: Clear to auscultation, No wheezing, use of accessory muscles, no crackles or wheezes. Skin - Skin warm and dry, no wounds or rashes Abdomen - Normal bowel sounds, abdomen soft and nontender Extremities - No edema, cyanosis or clubbing Musculoskeletal - 5/5 strength, normal range of motion, no swollen or erythematous joints. Neurological ? Alert and oriented x 3, CN 2-12 grossly intact. Psych: Normal mood and affect Objective Data Vital Signs Vital Signs: Vital Signs - 24 hr 07/07/25 13:35 07/07/25 13:50 07/07/25 14:05 Temperature 97 F L Pulse Rate 60 64 66 Respiratory Rate 15 14 15 Blood Pressure 99/71 L 103/84 126/92 H Pulse Oximetry 98 100 100 Oxygen Delivery Simple Face Mask Simple Face Mask Simple Face Mask Oxygen Flow Rate 6 6 6 07/07/25 14:17 07/07/25 14:20 07/07/25 14:35 Temperature Pulse Rate 70 72 Respiratory Rate 21 H 31 H Blood Pressure 125/89 136/91 H Pulse Oximetry 96 99 Oxygen Delivery Room Air Room Air Room Air Oxygen Flow Rate 07/07/25 14:50 07/07/25 15:05 07/07/25 15:44 Temperature 97.1 F L Pulse Rate 68 69 71 Respiratory Rate 10 L 17 17 Blood Pressure 130/91 H 130/97 H 145/101 H Pulse Oximetry 100 100 97 Oxygen Delivery Room Air Room Air Oxygen Flow Rate 07/07/25 16:55 07/07/25 17:43 07/07/25 20:00 Temperature Pulse Rate Respiratory Rate Blood Pressure 147/98 H 140/98 H Pulse Oximetry Oxygen Delivery Room Air Oxygen Flow Rate 07/07/25 21:09 07/07/25 21:46 07/08/25 05:30 Temperature 97.3 F L 97.9 F Pulse Rate 66 65 Respiratory Rate 13 14 Blood Pressure 132/86 144/95 H Pulse Oximetry 96 96 99 Oxygen Delivery Room Air Oxygen Flow Rate 07/08/25 08:37 Temperature Pulse Rate 62 Respiratory Rate Blood Pressure Pulse Oximetry Oxygen Delivery Oxygen Flow Rate Intake/Output Intake/Output: Intake & Output 07/05/25 07/06/25 07/07/25 07/08/25 23:59 23:59 23:59 23:59 Intake Total 1190 1240 1050 Output Total 350 3200 1200 Balance 211 -0086 -328 Meds/Results Medications: Active Medications Generic Name Dose Route Start Last Admin Trade Name Freq PRN Reason Stop Dose Admin Acetaminophen 650 mg 07/06/25 17:12 Acetaminophen 325 Mg Tablet PO Q4H PRN Mild Pain (1-3) or Fever Hydrocodone Bitart/Acetaminophen 1 tab 07/06/25 17:12 07/08/25 08:36 Hydrocodone/Acetaminophen (*Crx) 5-325 Mg Tablet PO 1 tab Q4H PRN Administration Moderate Pain (4-6) Bisacodyl 5 mg 07/06/25 17:12 Bisacodyl 5 Mg Tablet Ec PO DAILY PRN Constipation Bupropion HCl 100 mg 07/07/25 09:00 07/08/25 08:37 Bupropion Hcl 100 Mg Tablet PO 100 mg Q12HR YENNY Administration Cyclobenzaprine HCl 10 mg 07/06/25 22:11 07/06/25 22:34 Cyclobenzaprine Hcl 10 Mg Tablet PO 10 mg TID PRN Administration Muscle Spasm Duloxetine HCl 60 mg 07/07/25 09:00 07/08/25 08:36 Duloxetine Hcl 60 Mg Capsule.Dr PO 60 mg DAILY YENNY Administration Hydralazine HCl 10 mg 07/07/25 16:58 07/07/25 17:42 Hydralazine 10 Mg Tablet PO 10 mg QID PRN Administration Hypertension Hydrochlorothiazide 25 mg 07/07/25 09:00 07/08/25 08:37 Hydrochlorothiazide 25 Mg Tablet PO 25 mg DAILY YENNY Administration Levofloxacin/Dextrose 750 mg in 150 mls @ 100 mls/hr 07/07/25 17:00 07/07/25 18:33 Levaquin 750 Mg/D5w 150 Ml IVPB Infused Q24H YENNY Infusion Metoclopramide HCl 10 mg 07/06/25 17:18 Metoclopramide Hcl 10 Mg Tablet PO Q6H PRN Nausea And Vomiting Metoprolol Tartrate 50 mg 07/06/25 22:15 07/08/25 08:37 Metoprolol Tartrate 50 Mg Tab PO 50 mg Q12HR YENNY Administration Morphine Sulfate 2 mg 07/06/25 17:19 07/08/25 10:49 Morphine Sulfate (*Crx) 4 Mg/Ml Inj IV PUSH 2 mg Q4H PRN Administration Pain Rated 7-10 Polyethylene Glycol 17 gm 07/07/25 09:00 07/08/25 08:36 Polyethylene Glycol 3350 17 Gm Powd.Pack PO 17 gm QAM YENNY Administration Radiology Results: ITS Impressions Chest X-Ray 07/06/25 14:34 IMPRESSION: 1: NO ACUTE CARDIOPULMONARY DISEASE. Abdomen/Pelvis CT 07/06/25 15:06 IMPRESSION: 1. Possible 3 mm distal right ureteral stone in the pelvis. No significant associated hydronephrosis. 2: Mildly prominent appendix measuring 12 mm axially. No significant surrounding inflammation. 3: Nonobstructing bilateral nephrolithiasis. Fluoroscopy 07/07/25 13:42 IMPRESSION: Fluoroscopy used during right retrograde pyelogram. Venous Doppler Study 07/08/25 10:24 Impression: Negative for DVT. Labs Labs: Laboratory Results - last 24 hr 07/08/25 05:25 WBC 10.7 H RBC 4.79 Hgb 14.9 Hct 43.4 MCV 90.6 MCH 31.1 MCHC 34.3 RDW 12.5 Plt Count 259 MPV 9.4 Immature Gran % (Auto) 0.4 Neut % (Auto) 73.9 H Lymph % (Auto) 17.7 L [place] % (Auto) 7.5 Eos % (Auto) 0.2 Baso % (Auto) 0.3 Lymph # (Auto) 1.90 [place] # (Auto) 0.8 H Eos # (Auto) 0.0 Baso # (Auto) 0.0 Abs Immat Gran (auto) 0.04 H Absolute Neuts (auto) 7.9 H Absolute Nucleated RBC 0.000 Nucleated RBC % 0.0 Sodium 133 L Potassium 3.8 Chloride 99 Carbon Dioxide 24 Anion Gap 10 BUN 17 Creatinine 1.00 Estim Creat Clear Calc 66 Estimated GFR 58 L Glucose 111 H Hemoglobin A1c 5.2 Calcium 9.3 Total Bilirubin 0.7 AST 30 ALT 26 Alkaline Phosphatase 79 Total Protein 7.7 Albumin 4.3 Triglycerides 122 Cholesterol 255 H LDL Cholesterol Direct 165 HDL Direct 46 Vitamin B12 626.0 Folate 3.9 TSH (Reflex) 1.270 Quality VTE Prophylaxis VTE prophylaxis: mechanical ordered
--- NOTE | 2025-07-08 13:53 | PM.DS ---
DS: Admitting Diagnosis Discharge Date 07/08/2025 Admitting Diagnosis Hematuria DS: Discharge Diagnosis Discharge Diagnosis (1) Right ureteral stone: Code(s): N20.1 - Calculus of ureter Status: Acute DS: Summary Hospital Course Reason for hospitalization: Copied from [facility] 07/06: 50 y/o F with PMH of lupus, anxiety, and hypertension presents here with fever and back pain. The patient originally presented to [facility] on 07/01. At that time it she reported 3 day history of urinary frequency, malodorous urine, dysuria, and urgency. Patient also reported a subjective fever at that time for which she tried to treat with Tylenol with no improvement. Urine obtained at that time was consistent with a UTI. She was discharged home on cephalexin 500 mg q.6 hours x7 days. Now returning today (07/06) to [place] [facility] as she has continue to have urinary symptoms including urinary frequency, malodorous urine, dysuria, and urgency. Now also accompanied by right sided flank pain that radiates into her RLQ, sharp, constant in her abdomen and intermittent in her back. Movement worsens the pain and no improving factors. Also endorsing chills, body aches, and constipation. She is also reporting continued subjective fever with a max T at home of 102? F. She reports compliance with her previously prescribed antibiotic. She denies hematuria. Initial VS at presentation: 97.6? F, HR 102, R 16, 154/100, and 94% on RA. ED workup showed: No leukocytosis, hemoglobin 15.5, no significant electrolyte abnormalities, creatinine 1.0 and GFR 58, and UA remains consistent with UTI. Viral PCR negative. CXR showed no acute cardiopulmonary disease. CT of the abdomen/pelvis showed possible 3 mm distal right ureteral stone in the pelvis with no significant associated hydronephrosis, mildly prominent appendix measuring 12 mm with nose significant surrounding inflammation, nonobstructing bilateral nephrolithiasis. Hospital Course: UTI (urinary tract infection): Diagnosed with a UTI on 07/01. Started on Keflex p.o. outpatient. Despite compliance with antibiotics the patient continues to have urinary symptoms and subjective fever with a max T at home of 102? F. Urine culture from 07/01 showed pansensitive E coli, 07/06 urine culture resistant to tetracyclines. Complicated by a kidney stones, nonobstructing. UA: High specific gravity, positive nitrates, 21-50 WBC, 1+ bacteria, use the ileal cells with straight catheterization 07/06 UC pending Reviewed previous micro, no resistance noted Started on Levaquin 750mg 07/06-07/13 Kidney stone: Patient is reporting back pain, related to kidney stones noted on CT Creatinine normal Recent Ecoli UTI 07/01. Allergy to PCN s/p Levaquin yesterday & today - analgesics p.r.n.: Tylenol, [place], morphine - urology consulted, s/p lithotripsy. Stone removed, no stent required. Planning follow up with urology 07/06 CT abd/pelvis: 1. Possible 3 mm distal right ureteral stone in the pelvis. No significant associated hydronephrosis. 2: Mildly prominent appendix measuring 12 mm axially. No significant surrounding inflammation. 3: Nonobstructing bilateral nephrolithiasis. Hypertension: chronic. 91/71-151/90 during admission. Sometimes likely elevated secondary to pain - continued home medications: HCTZ, metoprolol - Add hydralazine 10 QID prn Facial rash: Erythema to cheeks, numbness/tingling to toes and trace proteinuria. Ddx includes lupus FRANKLIN positive 1:160. Normal ANCA, MPO3 ab, Proteinase 3, pANCA If persistent proteinuria at follow up check anti-GBM, consider renal referral Also recent ear pain and facial pain/tenderness to upper cheek. No obvious vesicles and ear pain is improving. No facial weakness. Leg pain: Reports a hx of bilateral stents to legs by Dr. Johnson. Records not available. Reports she is not on anticoagulation. Not taking aspirin. Pain to left leg posteriorly. Pedal pulses palpable bilaterally Bilateral LE venous dopplers Can follow up with PCP/Vascular to discuss if aspirin is recommended Neuropathy: Evaluate as above Also check A1c & TSH, ANCA Status at Discharge Cognitive/behavioral status at discharge: A&Ox4 Time Spent with Patient Time attestation: Total time spent providing and/or coordinating discharge services:57 minutes Exam Narrative: General - Awake and alert. No acute distress Eyes - PERRLA, EOM intact ENT - No thrush, No erythema Neck - No noticeable or palpable swelling Lymph Nodes - No lymphadenopathy Cardiovascular - RRR no m/r/g, no JVD Lungs: Clear to auscultation, No wheezing, use of accessory muscles, no crackles Skin - Skin warm and dry, no wounds or rashes Abdomen - Normal bowel sounds, abdomen soft and nontender Extremities - No edema, cyanosis or clubbing Musculoskeletal - 5/5 strength, normal range of motion, no swollen or erythematous joints. Neurological ? Alert and oriented x 3, CN 2-12 grossly intact. Psych: Normal mood and affect DS: Data Data Completed and Pending Pending studies at discharge: Pending at discharge 07/07/25 13:28 Surgical [PTH] Routine Labs on day of discharge: Labs from last 24 hours 07/08/25 07/08/25 05:25 05:22 WBC 10.7 H RBC 4.79 Hgb 14.9 Hct 43.4 MCV 90.6 MCH 31.1 MCHC 34.3 RDW 12.5 Plt Count 259 MPV 9.4 Immature Gran % (Auto) 0.4 Neut % (Auto) 73.9 H Lymph % (Auto) 17.7 L [place] % (Auto) 7.5 Eos % (Auto) 0.2 Baso % (Auto) 0.3 Lymph # (Auto) 1.90 [place] # (Auto) 0.8 H Eos # (Auto) 0.0 Baso # (Auto) 0.0 Abs Immat Gran (auto) 0.04 H Absolute Neuts (auto) 7.9 H Absolute Nucleated RBC 0.000 Nucleated RBC % 0.0 Sodium 133 L Potassium 3.8 Chloride 99 Carbon Dioxide 24 Anion Gap 10 BUN 17 Creatinine 1.00 Estim Creat Clear Calc 66 Estimated GFR 58 L Glucose 111 H Hemoglobin A1c 5.2 Calcium 9.3 Total Bilirubin 0.7 AST 30 ALT 26 Alkaline Phosphatase 79 Total Protein 7.7 Albumin 4.3 Triglycerides 122 Cholesterol 255 H LDL Cholesterol Direct 165 HDL Direct 46 Vitamin B12 626.0 Folate 3.9 TSH (Reflex) 1.270 [place]LIN Screen Pending c-ANCA Antibody Pending Proteinase 3 (PR3) Ab Pending Atypical p-ANCA Pending p-ANCA Antibody Pending Myeloperoxidase Ab Pending S.cerevisiae IgG Ab Pending S.cerevisiae IgA Ab Pending Preliminary micro results at discharge 07/06/25 15:55 - Preliminary Urine Catheterized Gram negative bacilli isolated Discharge Plan Discharge Attending physician on discharge: Arlet Randhawa Consulting providers: Arlet Randhawa; Sajan Simpson; Yoon Chaney; Mian Gunter; Macy Swain; Julian Gonzalez; Dick lOiveira Discharging Clinician: Arlet Randhawa Anticipated Discharge Date/Time: 07/08/25 13:25 Patient Disposition: Home Activity: may shower Diet: regular Discharge Instructions: Follow up with your PCP in 1-2 weeks You had no blood clots in your legs. Talk to your PCP and vascular surgeon to find out if they recommend daily aspirin Monitor for facial weakness and persistent or worsening facial or ear pain. There were no obvious abnormalities on exam. Patient Instructions: Antibiotic Form, Ureteroscopy (GEN) Patient Language: Romansh Stand Alone Forms: General Discharge Information, Work/School Release IP Follow-up/Referrals: Rafy,MD Aravind [Primary Care Provider, Unknown] - 2 Weeks Discharge Medications: New polyethylene glycol 3350 [Miralax] 17 gram Powder In Packet 17 g PO QAM Qty: 30 0RF hydrocodone-acetaminophen 5-325 mg Tablet 1 tablet PO Q4H PRN (Reason: Moderate Pain (4-6)) 5 Days Qty: 10 0RF levofloxacin 750 mg tablet 750 mg PO DAILY Qty: 5 0RF Continued metoprolol tartrate 50 mg tablet 50 mg PO Q12H cyclobenzaprine 10 mg tablet 10 mg PO TID PRN (Reason: muscle spasm) Qty: 20 0RF bupropion HCl 100 mg tablet 100 mg PO BID duloxetine 60 mg Capsule,Delayed Release(Dr/Ec) 60 mg PO DAILY hydrochlorothiazide 25 mg tablet 25 mg PO DAILY Date of admission: 07/06/25 17:56 Primary Care Provider: RafyAravind Admitting Provider: Gordon Arthur Attending physician on admission: Gordon Arthur Condition: Stable Hospitalist MIPS Heart Failure (Exclusion) Patient has history of Heart Transplant or Left Ventricular Assistive Device?: No IF YES, STOP HERE Heart Failure (Qualifier) Patient has current or prior documentation of LVEF less than or equal to 40%, or mod/servere depressed LVSF?: No IF NO, STOP HERE
[2025-07-08 14:00] VITALS: BP 138/89; PULSE 68; RESP 16; TEMP 37.1; O2SAT 100
[2025-07-11 20:07] LABS: Anti-MPO Antibodies <0.2 units (0.0-0.9); Anti-PR3 Antibodies <0.2 units (0.0-0.9); Saccharomyces cerevisiae, IgA 167.1 Units (0.0-24.9); Saccharomyces cerevisiae, IgG 66.6 Units (0.0-24.9)
[2025-07-12 19:08] LABS: ANA by IFA Rfx Titer/Pattern Positive (.)
== END 2025-07-08 15:05 | disposition home or self-care (01) ==
LOC: ANHED 15:59 → ANH3MEDSUR 17:59
PROVIDERS: Family Medicine; Nurse Practitioner Acute Care; Student in an Organized Health Care Education/Training Program; Urology; Admitting Provider General Practice; Emergency Provider Emergency Medicine; PCP Internal Medicine; Visit Provider General Practice
PROC: (CPT 52352; principal; 2025-07-07 14:00)
DX: N20.2 Calculus of kidney with calculus of ureter (principal); N30.00 Acute cystitis without hematuria; M79.605 Pain in left leg; R21 Rash and other nonspecific skin eruption; G62.9 Polyneuropathy, unspecified; M32.9 Systemic lupus erythematosus, unspecified; I10 Essential (primary) hypertension; F41.9 Anxiety disorder, unspecified; Z87.891 Personal history of nicotine dependence; Z95.0 Presence of cardiac pacemaker; Z83.3 Family history of diabetes mellitus; Z20.822 Contact with and (suspected) exposure to COVID-19
CPT/HCPCS: 52352; 36415; 71045; 74177; 80048; 80053; 80061; 81001; 82365; 82607; 82746; 83036; 83690; 84443; 84702; 85025; 86037; 86038; 86364; 86671; 87086; 87186; 87637; 88300; 93005; 93970; 96361; 96365; 96375; 99199; 99285; A9270; C1769; G0378; J1100; J1885; J1956; J2003; J2250; J2270; J2405; J2704; J3010; J7030; J7120; Q9966; Q9967